=== PATIENT | female | born 1955 | race Caucasian/White ===

== ENCOUNTER → 2016-11-14 | Outpatient (CLI) | payer MEDICARE, MEDICAID ==
[~2016-11-14] MED LIST: /AUGM875TA PO; /METO25TAB PO; /QUIN20TA PO; ACET65TA OR; ACYC400T OR; ALBU83IN INH; ALBUTEROL LIQ INH; ALLE25CA OR; AMBI5TAB OR; AMLO10TAB OR; ASPI1TAB PO; ASPI81CH21 PO; ASPI81TA83 PO; AZIT500T2 PO; BREO1INH3 INH; CEFD1CAP8 PO; CELE20TA OR; CIPR500T19 OR; CITA20TA4 PO; CLOTRIMAZOLE CREAM TOP; DEXI60CA PO; DOXY100C PO; DOXY20TA4 PO; DOXY50CA PO; EUCECRE2 EX; FERR325T OR; FERR325T3 PO; FLAG500T OR; FLEEENE4 PR; FURO40TA2 PO; GABA600T PO; GABAPOW41 PO; GAS-80CH OR; GLIP5TAB2 PO; GLIP5TAB8 PO; GLUC500T PO; HYDR50TA7 OR; JANUMET 50/1000 PO; LABE100T2 OR; LASI40TA PO; LASI80TA PO; LASIX PO; LEVA500T OR; LEVA500T PO; LEVA750T PO; LISI-542 PO; LISI10TA4 PO; LISI5TAB PO; LYRI75CA PO; MAGN500T2 OR; METF500T PO; METO25TAB PO; MILKSUS OR; NEUR100C OR; NICO21DI4 TD; NICO21PAT TD; OXYC10TA97 OR; OXYC1TAB16 PO; OXYC1TAB23 PO; OXYC20TA2 PO; OXYCONTIN PO; PERC5TAB8 PO; PLAV75TA PO; PLAV75TA2 PO; POTA75TA OR; PRED10TA PO; PRED10TA2 PO; PRED20TA PO; PREV30TA PO; SIMV10TA2 PO; SPIR1CAP INH; SPIR50TA2 PO; SYMB16INH INH; SYMB80AE IN; VANC25CA OR; [UNRECOGNIZED DRUG - OTHER]; lotrimin TOP
[2016-11-14 16:53] LABS: BASO # 0.1 K/mm3 (0.0-0.2); BASO % 0.7 % (0.0-1.0); EOS # 0.2 K/mm3 (0.0-0.50); EOS % 2.6 % (0.0-3.0); LARGE UNSTAINED CELL # 0.4 K/mm3 (0.0-0.4); LYMPH # 2.5 K/mm3 (1.5-4.5); LYMPH % 29.6 % (24.0-44.0); MEAN CORPUSCULAR HEMOGLOBIN 23.3 pg (27.0-33.0); MEAN CORPUSCULAR HGB CONC 28.1 g/dl (32.0-36.5); MONO # 0.5 K/mm3 (0.0-0.8); MONO % 5.5 % (0.0-5.0); NEUTROPHILS # 4.9 K/mm3 (1.8-7.7); NEUTROPHILS % 57.6 % (36.0-66.0); PLATELET COUNT, AUTOMATED 362 k/mm3 (150-450); RED CELL DISTRIBUTION WIDTH 16.8 % (11.5-14.5); WHITE BLOOD COUNT 8.6 K/mm3 (4.0-10.0)
[2016-11-14 16:54] LABS: ADD MORPHOLOGY? YES
[2016-11-14 17:24] LABS: ANISOCYTOSIS 1+; HYPOCHROMASIA 3+
[2016-11-14 17:25] LABS: MICROCYTOSIS 1+; POLYCHROMASIA 1+
[2016-11-14 17:48] LABS: ALBUMIN 3.4 GM/DL (3.2-5.2); ALBUMIN/GLOBULIN RATIO 0.89 (1.00-1.93); ALKALINE PHOSPHATASE 81 U/L (45-117); ALT/SGPT 17 U/L (12-78); ANION GAP 10 MEQ/L (8-16); AST/SGOT 13 U/L (15-37); BILIRUBIN,TOTAL 0.3 MG/DL (0.2-1.0); BLOOD UREA NITROGEN 10 MG/DL (7-18); CALCIUM LEVEL 9.2 MG/DL (8.8-10.2); CARBON DIOXIDE LEVEL 30 MEQ/L (21-32); CHLORIDE LEVEL 101 MEQ/L (98-107); CREATININE FOR GFR 0.68 MG/DL (0.55-1.02); FERRITIN 8 NG/ML (8-252); GLOMERULAR FILTRATION RATE > 60.0 (>45); GLUCOSE, FASTING 111 MG/DL (80-110); PERCENT SATURATION 4.6 % (13.2-37.4); POTASSIUM SERUM 4.9 MEQ/L (3.5-5.1); SODIUM LEVEL 141 MEQ/L (136-145); TOTAL IRON BINDING CAPACITY 433 UG/DL (250-450); TOTAL PROTEIN 7.2 GM/DL (6.4-8.2)
== END ==
LOC: M WUC 13:56
PROVIDERS: ATTEND Family Medicine
DX: E11.9 Type 2 diabetes mellitus without complications (principal); D64.9 Anemia, unspecified

== ENCOUNTER → 2016-11-18 | Outpatient (CLI) | payer MEDICARE, MEDICAID ==
[~2016-11-18] MED LIST changes: +GASTROGRAFIN SOLUTION 30ML (Q9963) As Ordered ONE; +ISOVUE-370 76% 100ML VIAL (Q9967) As Ordered ONE
--- NOTE | 2016-11-18 17:57 | REP ---
CT study of the abdomen and pelvis without and with IV contrast: With oral contrast. History: Lower abdominal pain. Comparison CT study is from May 25, 2012. CT contrast dose: 100 ml of Isovue [address] findings: Preliminary customer service and sales consultant radiograph demonstrates a normal bowel gas pattern. There is no evidence of pleural effusion or upper abdominal ascites. The lung bases show mild linear discoid atelectasis in the left lower lobe. The liver edge is somewhat micronodular in the left lobe is slightly prominent. No overall hepatomegaly. No splenomegaly. No focal liver or spleen lesion is seen. No venous collaterals are observed in the abdomen. No adrenal lesion is seen on either side. The gallbladder is unremarkable. The pancreas shows no abnormality. There is a 2.8 cm simple cyst in the posterior cortex of the left mid kidney. This was present in 2011 when it measured 2.6 cm by my exam. No other renal cyst or mass is observed. No calculus is seen. No retroperitoneal mass or adenopathy is seen. Vascular calcification is seen in a normal caliber aorta. No abdominal wall defect is seen. Small and large intestinal bowel loops are remarkable only for some left colonic diverticulosis without CT evidence of diverticulitis. Impression: 1. Plate-like atelectasis versus fibrosis left lower lobe. 2. Left colonic diverticulosis. 3. 2.8 cm simple cyst posterior cortex left mid kidney. 4. Slightly irregular liver edge, question early cirrhosis. No focal hepatic lesion. 5. Vascular calcification. Signed by Marcio Robles MD 11/19/2016 08:01 A
== END ==
LOC: M RAD 14:05
PROVIDERS: ATTEND Family Medicine
DX: J98.11 Atelectasis (principal); K57.30 Diverticulosis of large intestine without perforation or abscess without bleeding; N28.1 Cyst of kidney, acquired; K76.9 Liver disease, unspecified
CPT/HCPCS: 74178; Q9963; Q9967

== ENCOUNTER 2017-02-22 22:06 | Inpatient (IN) | payer MEDICARE, MEDICAID ==
[~2017-02-22] VITALS: Ht 152.4 cm; Wt 91.3 kg
[~2017-02-22 22:06] MED LIST changes: -GASTROGRAFIN SOLUTION 30ML (Q9963) As Ordered ONE; -ISOVUE-370 76% 100ML VIAL (Q9967) As Ordered ONE; -PLAV75TA PO; +PLAV75TA38 PO
[2017-02-22] MEDS ORDERED: ROBISYP7 PO (22:18)
[2017-02-22] MEDS ORDERED: DOXY-278 PO (22:24)
[2017-02-22] MEDS ORDERED: methylPREDNISolone INJ 125 MG/2 ML VIAL (J2930) IV ONE (22:45)
[2017-02-22 22:53] LABS: VENOUS O2 SATURATION 67.4 % (60.0-80.0); VENOUS PARTIAL PRESSURE CO2 69.5 mmHg (38.0-50.0); VENOUS PARTIAL PRESSURE O2 37.2 mmHg (30.0-50.0); VENOUS STANDARD HCO3 28.4 MEQ/L; VENOUS TOTAL CO2 35.1 MEQ/L (24.0-28.0)
[2017-02-22 23:03] LABS: BASO % 0.4 % (0.0-1.0); EOS # 0.1 K/mm3 (0.0-0.50); EOS % 1.2 % (0.0-3.0); LARGE UNSTAINED CELL # 0.3 K/mm3 (0.0-0.4); LARGE UNSTAINED CELL % 2.3 % (0.0-4.0); LYMPH # 2.4 K/mm3 (1.5-4.5); LYMPH % 20.4 % (24.0-44.0); MEAN CORPUSCULAR HEMOGLOBIN 20.5 pg (27.0-33.0); MEAN CORPUSCULAR VOLUME 75.8 fl (80.0-96.0); MONO # 0.7 K/mm3 (0.0-0.8); MONO % 6.1 % (0.0-5.0); NEUTROPHILS # 7.4 K/mm3 (1.8-7.7); NEUTROPHILS % 69.6 % (36.0-66.0); PLATELET COUNT, AUTOMATED 323 k/mm3 (150-450); RED CELL DISTRIBUTION WIDTH 19.9 % (11.5-14.5); WHITE BLOOD COUNT 10.7 K/mm3 (4.0-10.0)
[2017-02-22 23:05] LABS: ADD MORPHOLOGY? YES
[2017-02-22 23:14] LABS: ANION GAP 9 MEQ/L (8-16); BLOOD UREA NITROGEN 8 MG/DL (7-18); CALCIUM LEVEL 8.9 MG/DL (8.8-10.2); CARBON DIOXIDE LEVEL 32 MEQ/L (21-32); CHLORIDE LEVEL 100 MEQ/L (98-107); CREATININE FOR GFR 0.62 MG/DL (0.55-1.02); GLOMERULAR FILTRATION RATE > 60.0 (>45); GLUCOSE, FASTING 98 MG/DL (80-110); POTASSIUM SERUM 4.5 MEQ/L (3.5-5.1); SODIUM LEVEL 141 MEQ/L (136-145)
[2017-02-22] MEDS ORDERED: CEFEPIME HCL 1 GM in D5W MINI-BAG PLUS 50 ML IV ONE (23:30)
[2017-02-22 23:53] LABS: ABG BASE EXCESS 6.5 (-2.0-2.0); ABG PARTIAL PRESSURE CO2 58.9 mmHg (35.0-45.0); ABG PARTIAL PRESSURE O2 69.2 mmHg (75.0-100.0); ABG STANDARD HCO3 30.3 MEQ/L (22.0-26.0); ABG TOTAL CO2 34.8 MEQ/L (23.0-31.0); ABG pH (ARTERIAL) 7.366 UNITS (7.350-7.450)
[2017-02-22] MEDS: IPRATROPIUM 0.5MG/ALBUTEROL 2.5MG INH SOL UD 3ML (DUONEB)(J7620) NEB PRN (23:53)
[2017-02-23] LABS: ANISOCYTOSIS 2+; HYPOCHROMASIA 1+; POLYCHROMASIA 1+
[2017-02-23 00:01] LABS: STOMATOCYTES 1+
[2017-02-23] MEDS: IPRATROPIUM 0.5MG/ALBUTEROL 2.5MG INH SOL UD 3ML (DUONEB)(J7620) NEB PRN ×2 (00:01→00:07)
[2017-02-23] MEDS ORDERED: IPRATROPIUM 0.5MG/ALBUTEROL 2.5MG INH SOL UD 3ML (DUONEB)(J7620) NEB PRN (00:45)
[2017-02-23] MEDS ORDERED: ACETAMINOPHEN TAB 650MG DOSE (2X325MG) PO PRN (00:45)
[2017-02-23] MEDS ORDERED: DEXTROSE 50% 50 ML SYRINGE IV PRN (00:45)
[2017-02-23] MEDS ORDERED: GLUCAGON FOR INJ 1 MG VIAL (J1610) SC PRN (00:45)
[2017-02-23] MEDS ORDERED: GLUCOSE 4 GM CHEW TABLET PO PRN (00:45)
[2017-02-23] MEDS ORDERED: NS 1,000 ML IV SCH ×2 (00:45→01:17)
[2017-02-23] MEDS ORDERED: NICOTINE 21MG/24HR 1 EA TRANSDERMAL TD PRN (01:00)
[2017-02-23 01:30] VITALS: O2SAT 91
[2017-02-23] MEDS ORDERED: PERCOCET 5MG/325MG TAB PO PRN (01:30)
[2017-02-23] MEDS ORDERED: METO12TA PO (01:33)
[2017-02-23] MEDS ORDERED: OXYC1TAB23 PO (01:33)
[2017-02-23] MEDS ORDERED: LOSA25TA8 PO (01:38)
[2017-02-23] MEDS ORDERED: MIRT1TAB PO (01:38)
[2017-02-23] MEDS ORDERED: BENA25CA4 PO (01:38)
[2017-02-23 02:00] VITALS: BP 140/62
[2017-02-23] MEDS: IPRATROPIUM 0.5MG/ALBUTEROL 2.5MG INH SOL UD 3ML (DUONEB)(J7620) NEB SCH ×4 (02:00→20:00)
[2017-02-23] MEDS: diphenhydrAMINE 25 MG CAP PO SCH ×2 (02:01→21:21)
[2017-02-23] MEDS: SIMVASTATIN 10 MG TAB PO SCH ×2 (02:01→21:20)
[2017-02-23] MEDS: guaiFENesin ER 600 MG TAB PO SCH ×3 (02:01→21:20)
[2017-02-23] MEDS: GABAPENTIN 300 MG CAP PO SCH ×4 (02:02→21:21)
[2017-02-23] MEDS: HEPARIN SOD (PORCINE) 5000 UNITS/ML VIAL SC SCH ×4 (02:02→21:19)
[2017-02-23] MEDS: METOPROLOL TART 25 MG TABLET PO SCH ×3 (02:02→21:22)
[2017-02-23] MEDS: SENOKOT S TAB PO SCH ×3 (02:03→21:20)
[2017-02-23] MEDS: MIRTAZAPINE 7.5MG PER 1/2 TABLET PO SCH ×2 (02:08→21:20)
--- NOTE | 2017-02-23 03:26 | HPE ---
DATE OF ADMISSION: 02/23/2017 PRIMARY CARE PROVIDER: Chavo Oneill MD. BUSINESS OPERATIONS MANAGER: Jerome Cordon MD. WELLNESS CONSULTANT: Kelvin Callahan MD. CHIEF COMPLAINT: Shortness of breath, coughing and fevers. HISTORY OF PRESENT ILLNESS: This is a 61-year-old female patient with underlying medical history of chronic obstructive pulmonary disease (COPD), oxygen dependent on 3 liters at home, with chronic hypercarbia, dyslipidemia, questionable obstructive sleep apnea, diabetes non-insulin dependent, obesity, active smoker, poor compliance, congestive heart failure, anemia, pulmonary nodule, depression, chronic lower back pain, diabetic neuropathy, high blood pressure. Patient, for the past week or so, has been having progressively worsening shortness of breath, coughing productive of thick yellow sputum and also chills. Two weeks ago, patient ran out of her medication, nebulizers and inhalers and her granddaughter has also been sick, 3 years old, with cough, upper respiratory tract infection for the past 2-3 weeks. Denies any chest pain, pressure or discomfort. Denies any palpitations. Does report dyspnea with generalized weakness and fatigue. ALLERGIES: To BUPROPION, ERYTHROMYCIN, LATEX, PENICILLIN. PAST MEDICAL HISTORY: 1. Questionable obstructive sleep apnea. 2. Dyslipidemia. 3. Ltl-ljsnprs-[id number] type 2 diabetes. 4. Obesity. 5. Hypertension. 6. Congestive heart failure (CHF). 7. COPD, oxygen dependent. 8. Chronic hypoxia. 9. Anemia. 10. Pulmonary nodules. 11. Depression. 12. Chronic lower back pain. 13. Diabetic neuropathy. PAST SURGICAL HISTORY: 1. Cataracts. 2. Skin graft 1976. 3. Partial hysterectomy. SOCIAL HISTORY: Used to smoke three packs, currently at 1-1/2 packs to one pack per day. Started smoking since 20 years old. Last drink alcoholic beverage was 2 years ago. No illicit drug use. FAMILY HISTORY: Mother has ovarian cancer with metastases (METS) to the brain. Father with coronary arterial disease. REVIEW OF SYSTEMS: 10-point review of systems negative except for those mentioned in the history of present illness (HPI). HOME MEDICATIONS: - albuterol every 4 hours as needed - citalopram 20 mg by mouth daily - Plavix 75 mg by mouth daily - Dexilant 60 mg by mouth daily - doxycycline 100 mg by mouth daily - Breo inhaler 200/25 mcg inhalation daily - Lasix 40 mg by mouth twice a day as needed - gabapentin by mouth three times a day - glipizide 5 mg by mouth daily - lisinopril 10 mg by mouth daily - metformin 500 mg by mouth twice a day - metoprolol 25 mg by mouth twice a day - oxycodone/acetaminophen 10/325 mg one tablet by mouth twice a day as needed - Robitussin as needed - Zocor 10 mg by mouth daily - Spiriva inhalation 18 mcg daily PHYSICAL EXAMINATION: VITAL SIGNS: Temperature 100.7, pulse 116, respirations 20, blood pressure 169/69, pulse oximetry 88-90% on 3 liters nasal cannula. GENERAL: Patient alert and oriented times three in no acute distress. HEENT: Normocephalic, atraumatic. PULMONARY: Bilateral rhonchi. Bilateral expiratory wheeze. CARDIAC: Regular rate and rhythm. Mild tachycardia. S1, S2. ABDOMEN: Soft, nontender, nondistended. Obese. Positive bowel sounds. EXTREMITIES: No edema bilateral lower extremities. EKG sinus tachycardia at 105, no ST segment changes. LABORATORY: WBC 10.7, hemoglobin and hematocrit 8.8/32.4, platelets 323. Chemistry: Sodium 141, potassium 4.5, chloride 100, bicarbonate 32, BUN 8, creatinine 0.62. Cardiac enzymes negative times one. Chest x-ray mild hilar infiltrates. ASSESSMENT AND PLAN: This is a 61-year-old female patient with underlying medical history of chronic obstructive pulmonary disease (COPD), chronic hypoxic respiratory failure on 3 liters oxygen at home, congestive heart failure, dyslipidemia, ope-bofesfd-lyjhqpxnj diabetes, hypertension, anemia, pulmonary nodule, depression, chronic back pain, diabetic neuropathy, questionable sleep apnea, chronic smoker, poor compliance, admitted with acute COPD exacerbation possibly secondary to community-acquired bacterial pneumonia. 1. Acute COPD exacerbation, chronic hypoxic respiratory failure. Solu-Medrol intravenously (IV), taper as tolerated. Nebulizer treatments. Advair inhaler. Spiriva. Oxygen supplementation. Azithromycin, cefepime. Followup cultures. Respiratory panel. Positive sick contact. Sputum culture, blood cultures. 2. Smoking. Nicotine patch offered. Patient currently refused. Ordered as needed. Smoking cessation counseling provided. 3. Sepsis. Likely secondary to pneumonia. Patient tachycardic and febrile. Followup blood cultures, sputum cultures and respiratory panel, C-reactive protein, lactic acid. IV fluids for 500 mL overnight. Will avoid fluid overload. 4. History of congestive heart failure (CHF). Likely diastolic dysfunction. Patient currently is euvolemic. No edema. Continue to monitor. Continue home medication. Hold Lasix for today. Consider restarting Lasix tomorrow. 5. Hypertension. Holding Lasix for today. Will consider restarting tomorrow. Continue lisinopril, metoprolol. 6. Dyslipidemia. Continue statin. 7. Depression. Continue home medication. 8. Chronic back pain. Continue home medication. 9. Diabetic neuropathy. Continue home medication. 10. Deep venous thrombosis (DVT) prophylaxis. Heparin subcutaneously. 11. Diabetes. Insulin as per protocol. Holding oral medications. DISPOSITION: Pending clinical improvement and cultures.
[2017-02-23] MEDS: AZITHROMYCIN INJ 500 MG, VIAL MATE ADAPTER 1 EACH in D5W 250 ML IV SCH (04:13)
[2017-02-23 06:00] VITALS: BP 124/53
[2017-02-23 06:39] LABS: MEAN CORPUSCULAR HEMOGLOBIN 20.5 pg (27.0-33.0); MEAN CORPUSCULAR HGB CONC 27.2 g/dl (32.0-36.5); MEAN CORPUSCULAR VOLUME 75.5 fl (80.0-96.0); RED CELL DISTRIBUTION WIDTH 19.8 % (11.5-14.5); WHITE BLOOD COUNT 8.3 K/mm3 (4.0-10.0)
[2017-02-23 07:00] LABS: ANION GAP 5 MEQ/L (8-16); BLOOD UREA NITROGEN 13 MG/DL (7-18); CARBON DIOXIDE LEVEL 33 MEQ/L (21-32); CHLORIDE LEVEL 97 MEQ/L (98-107); CREATININE FOR GFR 0.65 MG/DL (0.55-1.02); GLOMERULAR FILTRATION RATE > 60.0 (>45); GLUCOSE, FASTING 248 MG/DL (80-110); MAGNESIUM LEVEL 1.4 MG/DL (1.8-2.4); SODIUM LEVEL 135 MEQ/L (136-145)
[2017-02-23] MEDS: TIOTROPIUM INHALER/CAPSULE (SPIRIVA) INH SCH (07:16)
[2017-02-23] MEDS: ADVAIR DISKUS 500/50 INH PWD INH SCH ×2 (07:16→20:52)
[2017-02-23] MEDS: methylPREDNISolone INJ 125 MG/2 ML VIAL (J2930) IV SCH ×2 (07:47→18:04)
[2017-02-23] MEDS: HumaLOG INSULIN (NovoLOG) PER UNIT SC SCH ×4 (07:48→21:00)
[2017-02-23] MEDS: PANTOPRAZOLE 40MG TAB (PROTONIX) PO SCH (07:48)
--- NOTE | 2017-02-23 08:31 | REP ---
Chest x-ray: Two views. History: Dyspnea and cough. Comparison study February 04, 2016. Findings: The lungs are slightly hyperinflated with an increase in the AP diameter of the chest but clear. Pleural angles are sharp. Heart is enlarged. Cardiothoracic ratio is 15.5 cm over 30.1 cm. Pulmonary vasculature is slightly cephalized but unchanged. There is no evidence of pleural effusion or pulmonary edema. Impression: Mild cardiomegaly and cephalization. Mild hyperinflation. Signed by Marcio Robles MD 02/23/2017 12:06 P
[2017-02-23] MEDS: CEFEPIME HCL 2 GM in D5W MINI-BAG PLUS 50 ML IV SCH (13:51)
[2017-02-23] MEDS: CLOPIDOGREL 75 MG TAB PO SCH (13:52)
[2017-02-23] MEDS: CitaloPRAM (CeleXA) 20 MG TAB PO SCH (13:53)
[2017-02-23] MEDS: LOSARTAN 25 MG TAB PO SCH (13:53)
[2017-02-23 18:00] VITALS: BP 120/58
[2017-02-23 21:00] VITALS: O2SAT 93
[2017-02-23 22:00] VITALS: BP 142/63
[2017-02-24] MEDS: CEFEPIME HCL 2 GM in D5W MINI-BAG PLUS 50 ML IV SCH ×3 (00:10→23:52)
[2017-02-24] MEDS: IPRATROPIUM 0.5MG/ALBUTEROL 2.5MG INH SOL UD 3ML (DUONEB)(J7620) NEB SCH ×4 (01:44→19:59)
--- NOTE | 2017-02-24 04:51 | ECGEPIP ---
Stationary ECG Study [facility] - ED Test Date: 2017-02-22 Pat Name: CANDIDO BAEZ Department: Room: [place] [address] Gender: F Supervisor Yard: DíazB: 1955 Requested By: MICKEY Joseph Order Number: [id number] Reading MD: Yong Beauchamp Measurements Intervals [place] Rate: 105 P: 77 WA: 165 QRS: 39 QRSD: 101 T: 60 QT: 330 QTc: 437 Interpretive Statements SINUS TACHYCARDIA [employer] RBBB LAE Electronically Signed On 02-24-2017 4:50:50 EDT by Yong Beauchamp
[2017-02-24] MEDS: AZITHROMYCIN INJ 500 MG, VIAL MATE ADAPTER 1 EACH in D5W 250 ML IV SCH (05:14)
[2017-02-24] MEDS: HEPARIN SOD (PORCINE) 5000 UNITS/ML VIAL SC SCH ×3 (05:15→22:44)
[2017-02-24 06:00] VITALS: BP 121/60
[2017-02-24 06:52] LABS: MEAN CORPUSCULAR HEMOGLOBIN 21.9 pg (27.0-33.0); MEAN CORPUSCULAR HGB CONC 28.9 g/dl (32.0-36.5); MEAN CORPUSCULAR VOLUME 75.6 fl (80.0-96.0); RED CELL DISTRIBUTION WIDTH 19.8 % (11.5-14.5); WHITE BLOOD COUNT 4.5 K/mm3 (4.0-10.0)
[2017-02-24 07:04] LABS: ANION GAP 3 MEQ/L (8-16); BLOOD UREA NITROGEN 24 MG/DL (7-18); CALCIUM LEVEL 9.3 MG/DL (8.8-10.2); CARBON DIOXIDE LEVEL 32 MEQ/L (21-32); CHLORIDE LEVEL 99 MEQ/L (98-107); CREATININE FOR GFR 0.67 MG/DL (0.55-1.02); GLOMERULAR FILTRATION RATE > 60.0 (>45); GLUCOSE, FASTING 357 MG/DL (80-110); MAGNESIUM LEVEL 1.5 MG/DL (1.8-2.4); POTASSIUM SERUM 4.9 MEQ/L (3.5-5.1); SODIUM LEVEL 134 MEQ/L (136-145)
[2017-02-24] MEDS: TIOTROPIUM INHALER/CAPSULE (SPIRIVA) INH SCH (07:34)
[2017-02-24] MEDS: ADVAIR DISKUS 500/50 INH PWD INH SCH ×2 (07:34→20:05)
[2017-02-24 08:30] VITALS: BP 135/64
[2017-02-24] MEDS: HumaLOG INSULIN (NovoLOG) PER UNIT SC SCH ×4 (08:30→20:36)
[2017-02-24] MEDS: methylPREDNISolone INJ 125 MG/2 ML VIAL (J2930) IV SCH ×4 (08:30→23:52)
[2017-02-24] MEDS: GABAPENTIN 300 MG CAP PO SCH ×3 (08:35→20:30)
[2017-02-24] MEDS: METOPROLOL TART 25 MG TABLET PO SCH ×2 (08:35→20:32)
[2017-02-24] MEDS: PANTOPRAZOLE 40MG TAB (PROTONIX) PO SCH (08:35)
[2017-02-24] MEDS: guaiFENesin ER 600 MG TAB PO SCH ×2 (08:35→20:29)
[2017-02-24] MEDS: SENOKOT S TAB PO SCH ×2 (08:35→20:30)
[2017-02-24] MEDS ORDERED: glipiZIDE (GLUCOTROL) 5 MG TAB PO SCH (09:00)
[2017-02-24] MEDS ORDERED: guaiFENesin DM LIQ 10ML UD PO PRN (10:45)
--- NOTE | 2017-02-24 10:50 | IPN ---
DATE OF SERVICE: 02/24/2017 Patient seen and examined at the bedside. Chart has been reviewed. This morning, patient still complains of shortness of breath but improved from yesterday, nonproductive cough, weakness. No fever or chills overnight. Temperature 97.8, pulse 64, respiratory rate 18, blood pressure 135/64, 98% on 2.5 liters nasal cannula. Generally, patient is awake, alert, oriented times three, no respiratory distress or using respiratory accessory muscles. No cyanosis. Able to complete full sentences. Lungs are diminished, bilateral, occasional wheezing. Heart: S1, S2, sinus rhythm. Abdomen is soft, nontender, nondistended. Extremities: No pitting edema. LABORATORY DATA: White count 4.5, hemoglobin 8.6, hematocrit 29, platelet count 283. Sodium 134, potassium 4.9, chloride 99, bicarbonate 32, BUN 24, creatinine 0.67, glucose of 357. RSV, 02/22/2017, positive. ASSESSMENT AND PLAN: This is a 61-year-old female with history of obstructive sleep apnea (EDWINA), dyslipidemia, type 2 diabetes, obesity, hypertension, congestive heart failure (CHF), chronic obstructive pulmonary disease (COPD), chronic hypoxia, anemia, pulmonary nodules, depression, chronic low back pain, diabetic neuropathy, presents with worsening shortness of breath , coug, fever for 2 weeks due to running out of medication. IMPRESSION: 1. Acute COPD exacerbation with chronic hypoxic respiratory failure, on intravenous (IV) Solu-Medrol, nebulizer treatments, Advair, azithromycin and cefepime. Await sputum culture and blood cultures. 2. Active smoking. Nicotine patch, smoking counseling provided. 3. Sepsis secondary to pneumonia. Tachycardic and febrile. Lactic acid has now improved. IV fluids have been given. 4. CHF, diastolic dysfunction. Monitor intake and output. Lasix has been held. 5. Hypertension. Lasix held. Continue lisinopril and metoprolol. 6. Dyslipidemia. On statin. 7. Depression, stable. 8. Chronic back pain, chronic. 9. Diabetic neuropathy, chronic. 10. Deep venous thrombosis (DVT) prophylaxis. Subcutaneous heparin. 11. Type 2 diabetes. Consistent carbohydrate diet. Insulin per protocol. Slightly increased to due to steroid induced hyperglycemia. Check A1c level and rapid tapering of steroids.
[2017-02-24 14:00] VITALS: BP 128/58
[2017-02-24] MEDS: metFORMIN (GLUCOPHAGE) 500 MG TAB PO SCH ×2 (15:24→20:30)
[2017-02-24] MEDS: LEVEMIR (INSULIN DETEMIR) 1 UNITS/0.01ML SC SCH ×2 (15:25→20:35)
[2017-02-24] MEDS: LOSARTAN 25 MG TAB PO SCH (17:52)
[2017-02-24] MEDS: CLOPIDOGREL 75 MG TAB PO SCH (17:52)
[2017-02-24] MEDS: CitaloPRAM (CeleXA) 20 MG TAB PO SCH (17:52)
[2017-02-24 20:00] VITALS: O2SAT 97
[2017-02-24] MEDS: SIMVASTATIN 10 MG TAB PO SCH (20:29)
[2017-02-24] MEDS: diphenhydrAMINE 25 MG CAP PO SCH (20:30)
[2017-02-24 22:00] VITALS: BP 141/61
[2017-02-24] MEDS: MIRTAZAPINE 7.5MG PER 1/2 TABLET PO SCH (22:51)
[2017-02-25 01:47] VITALS: O2SAT 98
[2017-02-25] MEDS: IPRATROPIUM 0.5MG/ALBUTEROL 2.5MG INH SOL UD 3ML (DUONEB)(J7620) NEB SCH ×4 (01:51→19:54)
[2017-02-25] MEDS: MIRTAZAPINE 7.5MG PER 1/2 TABLET PO SCH ×2 (01:53→21:55)
[2017-02-25] MEDS: AZITHROMYCIN INJ 500 MG, VIAL MATE ADAPTER 1 EACH in D5W 250 ML IV SCH (03:31)
[2017-02-25] MEDS: HEPARIN SOD (PORCINE) 5000 UNITS/ML VIAL SC SCH ×3 (05:54→21:54)
[2017-02-25 06:00] VITALS: BP 137/65
[2017-02-25 07:23] LABS: MEAN CORPUSCULAR HEMOGLOBIN 19.6 pg (27.0-33.0); MEAN CORPUSCULAR HGB CONC 26.4 g/dl (32.0-36.5); MEAN CORPUSCULAR VOLUME 74.2 fl (80.0-96.0); PLATELET COUNT, AUTOMATED 339 k/mm3 (150-450); WHITE BLOOD COUNT 6.6 K/mm3 (4.0-10.0)
[2017-02-25] MEDS: TIOTROPIUM INHALER/CAPSULE (SPIRIVA) INH SCH (07:30)
[2017-02-25] MEDS: ADVAIR DISKUS 500/50 INH PWD INH SCH ×2 (07:30→19:53)
[2017-02-25 07:39] LABS: ANION GAP 2 MEQ/L (8-16); BLOOD UREA NITROGEN 27 MG/DL (7-18); CALCIUM LEVEL 9.8 MG/DL (8.8-10.2); CARBON DIOXIDE LEVEL 32 MEQ/L (21-32); CHLORIDE LEVEL 101 MEQ/L (98-107); CREATININE FOR GFR 0.73 MG/DL (0.55-1.02); GLOMERULAR FILTRATION RATE > 60.0 (>45); GLUCOSE, FASTING 274 MG/DL (80-110); MAGNESIUM LEVEL 1.7 MG/DL (1.8-2.4); SODIUM LEVEL 135 MEQ/L (136-145)
[2017-02-25] MEDS: methylPREDNISolone INJ 125 MG/2 ML VIAL (J2930) IV SCH (08:00)
[2017-02-25] MEDS: HumaLOG INSULIN (NovoLOG) PER UNIT SC SCH ×4 (08:55→21:00)
[2017-02-25] MEDS: SENOKOT S TAB PO SCH ×3 (08:55→21:55)
[2017-02-25] MEDS: predniSONE 20 MG TAB PO SCH ×3 (08:56→21:55)
[2017-02-25] MEDS: PANTOPRAZOLE 40MG TAB (PROTONIX) PO SCH (08:56)
[2017-02-25] MEDS: GABAPENTIN 300 MG CAP PO SCH ×3 (08:57→21:54)
[2017-02-25] MEDS: METOPROLOL TART 25 MG TABLET PO SCH ×2 (08:57→22:04)
[2017-02-25] MEDS: guaiFENesin ER 600 MG TAB PO SCH ×2 (08:58→21:54)
[2017-02-25] MEDS: metFORMIN (GLUCOPHAGE) 500 MG TAB PO SCH ×2 (09:00→21:55)
[2017-02-25 09:18] LABS: PERCENT SATURATION 2.9 % (13.2-37.4); REASON FOR REVIEW COMPREHENSIVE REVIEW; RETIC HEMOGLOBIN CONTENT CHr 22.6 PG (24-36); RETICULOCYTE ABSOLUTE ADVIA212 81 x10(9)/L (17-77); TOTAL IRON BINDING CAPACITY 339 UG/DL (250-450)
[2017-02-25] MEDS: glipiZIDE 10 MG TAB PO SCH ×2 (09:41→17:02)
[2017-02-25] MEDS ORDERED: MAG SULF 1GM/100ML (MAG RUN) 1 GM in APPROPRIATE DILUENT 1 EA IV ONE (10:00)
[2017-02-25] MEDS ORDERED: FUROSEMIDE 100 MG/10 ML VIAL (J1940) IV ONE (11:00)
--- NOTE | 2017-02-25 11:05 | IPN ---
DATE: 02/25/2017 The patient is seen and examined at the bedside. The chart has been reviewed. She denies any bright red blood per rectum, melena, hematemesis, black tarry stools, shortness of breath, is back to baseline. No chest pain, pressure, tightness, dizziness or lightheadedness. No fatigue or weakness. Temperature 97.1, pulse 65 to 68 sinus rhythm, respiratory rate 18, blood pressure 135/67, 95% 2.5 liters nasal cannula. Generally, the patient is slightly pale. No icterus. No jaundice. Speaks in full sentences. No use of respiratory accessory muscles. No jugular venous distention. Lungs: Diminished with coarse rhonchi, faint expiratory wheezing. Heart: S1, S2 sinus rhythm. Abdomen is obese, soft, nontender, nondistended. Extremities: No cyanosis or clubbing or pitting edema. Laboratory data, microbiology and imaging studies have been reviewed. ASSESSMENT/PLAN: 61-year-old female with a history of COPD, oxygen dependent 3 liters at home, chronic hypercarbia, dyslipidemia, sleep apnea, type 2 diabetes, obesity, active smoker with poor compliance, congestive heart failure, anemia, pulmonary nodule, depression, chronic low back pain, diabetic neuropathy, hypertension who presented to the emergency room with worsening shortness of breath, thick yellow sputum with chills. The patient has had a sick contact with her granddaughter who is 3 years old with upper respiratory infection and the patient has run out of her medication, nebulizers and inhalers. She now presents with acute COPD exacerbation secondary to respiratory syncytial virus. Chest x-ray shows mild cephalization and cardiomegaly with mild hyperinflation. IMPRESSION: 1. Acute COPD exacerbation with chronic hypoxic respiratory failure on 3 liters of nasal cannula oxygen, currently on IV Solu-Medrol. Will change to oral prednisone 60 three times a day, Lasix IV times one. Repeat chest x-ray. Continue with nebulizer treatments, supplemental oxygen. 2. Anemia: Check hemoccult stool, hemoglobin and hematocrit every 6 hours. Transfuse if symptomatic or persistently less than 8. 3. Steroid induced hyperglycemia: Continue on oral hypoglycemics. Discontinue subcutaneous insulin. 4. Electrolyte abnormalities with low magnesium. Supplement magnesium. 5. Obstructive sleep apnea: Outpatient sleep study. 6. Sepsis secondary to possible pneumonia. Lactic acid has improved. IV fluids have been given. 7. Congestive heart failure diastolic dysfunction: Monitor input and output, daily weights, fluid restriction. Lasix 60 IV times one. Repeat chest x-ray and check BNP. 8. History of chronic hypoxia, currently on 3 liters at baseline. 9. Hypertension is stable. Monitor creatinine on lisinopril. 10. Hyperlipidemia on chronic Zocor. 11. Depression on citalopram. 12. Type 2 diabetes uncontrolled with steroid induced hyperglycemia. Resume home medications, glipizide. MTDD
[2017-02-25 11:11] LABS: FERRITIN 15 NG/ML (8-252)
--- NOTE | 2017-02-25 11:40 | REP ---
CHEST X-RAY: TWO VIEWS. HISTORY: Shortness of breath. COMPARISON STUDY: 02/22/2017 FINDINGS: Mild cardiomegaly is again observed, unchanged. Pulmonary artery segment of the left heart border is somewhat convex suggesting dilation of pulmonary arteries/pulmonary arterial hypertension. This is unchanged. Pulmonary vasculature is not increased in the perihilar regions. There is some flattening of the hemidiaphragms on the lateral radiograph, consistent with hyperinflation and COPD. No infiltrate is seen. Interstitial markings are slightly increased in the bases bilaterally. IMPRESSION: Cardiomegaly. No acute infiltrate seen. Signed by Marcio Robles MD 02/25/2017 01:40 P
[2017-02-25 14:00] VITALS: BP 127/60
[2017-02-25] MEDS: CLOPIDOGREL 75 MG TAB PO SCH (14:15)
[2017-02-25] MEDS: LOSARTAN 25 MG TAB PO SCH (14:15)
[2017-02-25] MEDS: CitaloPRAM (CeleXA) 20 MG TAB PO SCH (14:15)
[2017-02-25] MEDS: diphenhydrAMINE 25 MG CAP PO SCH (21:53)
[2017-02-25] MEDS: SIMVASTATIN 10 MG TAB PO SCH (21:56)
[2017-02-25 22:00] VITALS: BP 147/67
[2017-02-26] MEDS: IPRATROPIUM 0.5MG/ALBUTEROL 2.5MG INH SOL UD 3ML (DUONEB)(J7620) NEB SCH ×2 (03:12→08:00)
[2017-02-26 06:00] VITALS: BP 152/72
[2017-02-26] MEDS: HEPARIN SOD (PORCINE) 5000 UNITS/ML VIAL SC SCH (06:14)
[2017-02-26 07:02] LABS: MEAN CORPUSCULAR HEMOGLOBIN 20.6 pg (27.0-33.0); MEAN CORPUSCULAR HGB CONC 27.7 g/dl (32.0-36.5); MEAN CORPUSCULAR VOLUME 74.6 fl (80.0-96.0); RED CELL DISTRIBUTION WIDTH 19.7 % (11.5-14.5); WHITE BLOOD COUNT 5.5 K/mm3 (4.0-10.0)
[2017-02-26 07:07] LABS: ANION GAP 6 MEQ/L (8-16); BLOOD UREA NITROGEN 24 MG/DL (7-18); CALCIUM LEVEL 9.7 MG/DL (8.8-10.2); CARBON DIOXIDE LEVEL 30 MEQ/L (21-32); CHLORIDE LEVEL 103 MEQ/L (98-107); CREATININE FOR GFR 0.64 MG/DL (0.55-1.02); GLOMERULAR FILTRATION RATE > 60.0 (>45); GLUCOSE, FASTING 196 MG/DL (80-110); MAGNESIUM LEVEL 1.7 MG/DL (1.8-2.4); PERCENT SATURATION 2.7 % (13.2-37.4); POTASSIUM SERUM 4.8 MEQ/L (3.5-5.1); SODIUM LEVEL 139 MEQ/L (136-145); TOTAL IRON BINDING CAPACITY 375 UG/DL (250-450)
[2017-02-26] MEDS ORDERED: GUAI60TA PO (07:38)
[2017-02-26] MEDS ORDERED: GLIP10TA PO (07:38)
[2017-02-26] MEDS ORDERED: IPRASOL4 NEB (07:38)
[2017-02-26] MEDS ORDERED: NICO21PAT TD (07:38)
[2017-02-26] MEDS ORDERED: DELT1TAB PO (07:38)
[2017-02-26] MEDS ORDERED: MAG SULF 1GM/100ML (MAG RUN) 1 GM in APPROPRIATE DILUENT 1 EA IV ONE (08:00)
[2017-02-26] MEDS: ADVAIR DISKUS 500/50 INH PWD INH SCH (08:30)
[2017-02-26] MEDS: TIOTROPIUM INHALER/CAPSULE (SPIRIVA) INH SCH (08:31)
[2017-02-26 08:37] VITALS: BP 152/72
[2017-02-26] MEDS: METOPROLOL TART 25 MG TABLET PO SCH (08:37)
[2017-02-26] MEDS: guaiFENesin ER 600 MG TAB PO SCH (08:37)
[2017-02-26] MEDS: GABAPENTIN 300 MG CAP PO SCH (08:37)
[2017-02-26] MEDS: HumaLOG INSULIN (NovoLOG) PER UNIT SC SCH (08:38)
[2017-02-26] MEDS: predniSONE 20 MG TAB PO SCH (08:38)
[2017-02-26] MEDS: metFORMIN (GLUCOPHAGE) 500 MG TAB PO SCH (08:38)
[2017-02-26] MEDS: PANTOPRAZOLE 40MG TAB (PROTONIX) PO SCH (08:38)
[2017-02-26] MEDS: SENOKOT S TAB PO SCH (08:39)
[2017-02-26] MEDS: glipiZIDE 10 MG TAB PO SCH (08:39)
--- NOTE | 2017-02-26 16:43 | DSES ---
DATE OF ADMISSION: 02/23/2017 DATE OF DISCHARGE: 02/26/2017 PRIMARY DISCHARGE DIAGNOSES: 1. Respiratory syncytial virus. 2. Chronic obstructive pulmonary disease (COPD) exacerbation. 3. Steroid-induced hyperglycemia. 4. Electrolyte abnormalities with low magnesium. 5. Obstructive sleep apnea. 6. Sepsis, secondary to pneumonia. 7. Congestive heart failure (CHF), diastolic dysfunction, compensated. 8. Chronic hypoxia, on 3 liters of oxygen. 9. Hypertension. 10. Hyperlipidemia. 11. Depression. 12. Type 2 diabetes with steroid-induced hyperglycemia. DISCHARGE MEDICATIONS: - Combivent 3 mL every 6 hours - prednisone taper - glipizide 10 twice a day - Mucinex 600 twice a day - nicotine patch 21 mg daily - citalopram 20 daily - Plavix 75 daily - Dexilant 60 daily - Benadryl 25 nightly - Breo Ellipta daily - gabapentin 600 three times a day - losartan 25 daily - metformin 500 twice a day - metoprolol 25 twice a day - mirtazapine 7.5 nightly - Percocet one every 12 hours as needed for pain - Robitussin 10 mL as directed - simvastatin 10 nightly - Spiriva 18 mcg inhaled daily HOSPITAL COURSE: This is a 61-year-old female with history of COPD, 3 liters home oxygen dependent, chronic hypercarbia, dyslipidemia, sleep apnea, type 2 diabetes, obesity, active smoker with poor compliance, CHF diastolic dysfunction, pulmonary nodule, depression, chronic low back pain, diabetic neuropathy, hypertension, presented with shortness of breath and sputum and chills. The patient had a sick contact. Was admitted for COPD exacerbation. The patient was started on IV Solu-Medrol, nebulizer treatments, Continued on her supplemental oxygen. Patient developed steroid-induced hyperglycemia. She was resumed to her home dose of medications, given Levemir insulin, rapid tapering of steroids with some improvement. Sputum culture could not be obtained. She had positive respiratory syncytial virus and was kept on air droplet precautions. Influenza A and B were negative. Two sets of blood cultures were negative. Chest x-ray showed no acute infiltrate. She appeared fluid overloaded, received one dose of Lasix, but shortness of breath is at baseline at 3 liters nasal cannula. She had episodes of low magnesium which was supplemented. LABORATORY DATA ON DISCHARGE: White count 5.5, hemoglobin 8.5, hematocrit 30, platelet count 345, sodium 139, potassium 4.8, chloride 103, bicarbonate 30, BUN 24, creatinine 0.64, glucose 196, magnesium 1.7. MICROBIOLOGY: RSV positive. Influenza negative. Blood cultures, two sets, no growth after 72 hours. TIME SPENT ON DISCHARGE: 30 minutes.
== END 2017-02-26 11:05 | disposition home health service (06) | DRG 871 ==
LOC: M ED 22:34 → M ED INP 02-23 00:36 → M MS5PR 02-23 01:10
PROVIDERS: ADMIT Hospitalist; ATTEND General Practice
DX: A41.9 Sepsis, unspecified organism (principal); J18.9 Pneumonia, unspecified organism; J44.1 Chronic obstructive pulmonary disease with (acute) exacerbation; J96.11 Chronic respiratory failure with hypoxia; I50.32 Chronic diastolic (congestive) heart failure; E11.40 Type 2 diabetes mellitus with diabetic neuropathy, unspecified; E66.9 Obesity, unspecified; F17.210 Nicotine dependence, cigarettes, uncomplicated; F32.9 Major depressive disorder, single episode, unspecified; E11.65 Type 2 diabetes mellitus with hyperglycemia; B97.4 Respiratory syncytial virus as the cause of diseases classified elsewhere; M54.5 Low back pain; G47.33 Obstructive sleep apnea (adult) (pediatric); I11.0 Hypertensive heart disease with heart failure; E78.5 Hyperlipidemia, unspecified; D64.9 Anemia, unspecified; Z99.81 Dependence on supplemental oxygen; Z91.14 Patient's other noncompliance with medication regimen; Z79.02 Long term (current) use of antithrombotics/antiplatelets; Z79.84 Long term (current) use of oral hypoglycemic drugs; Z79.891 Long term (current) use of opiate analgesic; Z79.51 Long term (current) use of inhaled steroids; Z79.899 Other long term (current) drug therapy; Z68.38 Body mass index [BMI] 38.0-38.9, adult

== ENCOUNTER 2017-03-12 11:48 | Inpatient (IN) | payer MEDICARE, MEDICAID ==
[~2017-03-12] VITALS: Ht 152.4 cm; Wt 87.6 kg
[2017-03-12] MEDS: LOSARTAN 25 MG TAB PO SCH (09:00)
[2017-03-12] MEDS: NICOTINE 21MG/24HR 1 EA TRANSDERMAL TD SCH (09:00)
[~2017-03-12 11:48] MED LIST changes: +BENA25CA4 PO; +DELT1TAB PO; +DOXY-278 PO; +GLIP10TA PO; +GUAI60TA PO; +IPRASOL4 NEB; +LOSA25TA8 PO; +METO12TA PO; +MIRT1TAB PO; +ROBISYP7 PO
[2017-03-12] MEDS ORDERED: FURO40TA2 PO (12:37)
[2017-03-12] MEDS ORDERED: IPRATROPIUM 0.5MG/ALBUTEROL 2.5MG INH SOL UD 3ML (DUONEB)(J7620) NEB ONE ×3 (13:15→15:15)
[2017-03-12] MEDS ORDERED: methylPREDNISolone INJ 125 MG/2 ML VIAL (J2930) IV ONE (13:15)
[2017-03-12 13:31] LABS: BASO % 0.3 % (0.0-1.0); EOS % 0.5 % (0.0-3.0); LARGE UNSTAINED CELL # 0.3 K/mm3 (0.0-0.4); LARGE UNSTAINED CELL % 3.8 % (0.0-4.0); LYMPH # 1.4 K/mm3 (1.5-4.5); MEAN CORPUSCULAR HEMOGLOBIN 22.4 pg (27.0-33.0); MEAN CORPUSCULAR HGB CONC 28.8 g/dl (32.0-36.5); MEAN CORPUSCULAR VOLUME 77.9 fl (80.0-96.0); MONO # 0.4 K/mm3 (0.0-0.8); MONO % 6.2 % (0.0-5.0); NEUTROPHILS # 4.9 K/mm3 (1.8-7.7); NEUTROPHILS % 69.2 % (36.0-66.0); PLATELET COUNT, AUTOMATED 193 k/mm3 (150-450); RED CELL DISTRIBUTION WIDTH 21.6 % (11.5-14.5); WHITE BLOOD COUNT 7.1 K/mm3 (4.0-10.0)
[2017-03-12 13:36] LABS: ADD MORPHOLOGY? YES
[2017-03-12 13:39] LABS: ALBUMIN 2.5 GM/DL (3.2-5.2); ALBUMIN/GLOBULIN RATIO 0.66 (1.00-1.93); ALKALINE PHOSPHATASE 67 U/L (45-117); ALT/SGPT 16 U/L (12-78); ANION GAP 7 MEQ/L (8-16); AST/SGOT 13 U/L (15-37); BILIRUBIN,DIRECT 0.1 MG/DL (0.0-0.2); BILIRUBIN,TOTAL 0.3 MG/DL (0.2-1.0); BLOOD UREA NITROGEN 9 MG/DL (7-18); CALCIUM LEVEL 8.4 MG/DL (8.8-10.2); CARBON DIOXIDE LEVEL 33 MEQ/L (21-32); CHLORIDE LEVEL 103 MEQ/L (98-107); CREATININE FOR GFR 0.54 MG/DL (0.55-1.02); GLOMERULAR FILTRATION RATE > 60.0 (>45); GLUCOSE, FASTING 168 MG/DL (80-110); POTASSIUM SERUM 3.7 MEQ/L (3.5-5.1); SODIUM LEVEL 143 MEQ/L (136-145); THYROXINE (T4) 8.7 UG/DL (4.5-12.0); TOTAL PROTEIN 6.3 GM/DL (6.4-8.2)
[2017-03-12 13:47] LABS: ABG BASE EXCESS 4.6 (-2.0-2.0); ABG HCO3 30.5 MEQ/L (22.0-26.0); ABG PARTIAL PRESSURE CO2 52.6 mmHg (35.0-45.0); ABG PARTIAL PRESSURE O2 73.2 mmHg (75.0-100.0); ABG STANDARD HCO3 28.6 MEQ/L (22.0-26.0); ABG TOTAL CO2 32.1 MEQ/L (23.0-31.0); ABG pH (ARTERIAL) 7.381 UNITS (7.350-7.450)
[2017-03-12 14:08] LABS: MICROCYTOSIS 2+
[2017-03-12 14:09] LABS: ANISOCYTOSIS 2+; HYPOCHROMASIA 3+
--- NOTE | 2017-03-12 14:20 | REP ---
Chest two views HISTORY: Cough Comparison: 02/25/2017 The lungs are clear. T the cardiac silhouette is upper limits of normal in size. The pulmonary vasculature is normal in appearance. The bony structure is intact. IMPRESSION: No acute disease. Signed by Jose Betancur MD 03/12/2017 02:12 P
[2017-03-12] MEDS ORDERED: ISOVUE-370 76% 100ML VIAL (Q9967) As Ordered ONE (15:19)
[2017-03-12] MEDS ORDERED: MIRT30TA3 PO (17:16)
[2017-03-12] MEDS ORDERED: BREO1INH INH (17:16)
[2017-03-12] MEDS ORDERED: IPRASOL4 INH (17:19)
[2017-03-12] MEDS ORDERED: METO25TAB PO (17:19)
[2017-03-12] MEDS ORDERED: GLIP10TA6 PO (17:19)
[2017-03-12] MEDS ORDERED: NICODIS TD (17:19)
[2017-03-12] MEDS ORDERED: GUAI1TAB PO (17:19)
[2017-03-12] MEDS ORDERED: TAB-TAB PO (17:19)
--- NOTE | 2017-03-12 17:38 | REP ---
CT ANGIO CHEST: HISTORY: Shortness of breath. CONTRAST: Isovue-370 75 mL. There are no filling defects in the main , right and left pulmonary arteries or their branches. Parenchymal density is present in the right upper lobe consistent with scarring. A 3 mm nodule is present in the right upper lobe unchanged in size compared to the previous study. This is seen on image 26. The left lung is clear. There is no pleural effusion. Small lymph nodes less than 1 cm in size are present in the mediastinum. Atherosclerotic calcification is present in the thoracic aorta. Degenerative change is present in the spine. IMPRESSION: 1. There is no pulmonary embolism. 2. Right upper lobe scarring. 3. Small 3 mm right upper lobe nodule unchanged in size compared to the previous study. Signed by Jose Betancur MD 03/13/2017 08:57 A
[2017-03-12] MEDS ORDERED: NALOXONE INJ 0.4 MG/1 ML VIAL (J2310) IV STA (17:46)
[2017-03-12] MEDS ORDERED: glipiZIDE (GLUCOTROL) 5 MG TAB PO ONE (18:00)
[2017-03-12] MEDS ORDERED: ONDANSETRON 4MG/2ML VIAL (J2405) IV PRN (18:00)
[2017-03-12] MEDS ORDERED: guaiFENesin DM LIQ 10ML UD PO PRN (18:00)
[2017-03-12] MEDS ORDERED: NS 1,000 ML IV SCH (18:00)
[2017-03-12] MEDS ORDERED: ACETAMINOPHEN TAB 650MG DOSE (2X325MG) PO PRN (18:00)
[2017-03-12] MEDS ORDERED: GLUCOSE 4 GM CHEW TABLET PO PRN (18:30)
[2017-03-12] MEDS ORDERED: DEXTROSE 50% 50 ML SYRINGE IV PRN (18:30)
[2017-03-12] MEDS ORDERED: GLUCAGON FOR INJ 1 MG VIAL (J1610) SC PRN (18:30)
[2017-03-12] MEDS ORDERED: ALBUTEROL SULFATE 2.5 MG/0.5 ML INH NEB SOLN INH PRN (18:30)
--- NOTE | 2017-03-12 19:34 | HPEPDOC ---
Medical History and Physical Date of Admission March 12, 2017 at 17:47 History and Physical PRIMARY CARE PROVIDER: Dr. Oneill ATTENDING: Tri Mcdermott MD CHIEF COMPLAINT: Shortness of breath HISTORY OF PRESENT ILLNESS: This is a 61-year-old female past history of severe COPD on 3 L home O2, questionable objective sleep apnea, diabetes, obesity, hypertension, history of CVA with no residual deficits, CHF, anemia, pulmonary nodules, chronic lower back pain, diabetic neuropathy who presents complaining of shortness of breath and cough. Patient was lethargic however was oriented 3, moving all extremities, and had been complaining of shortness of breath and cough as well as lethargy over the past 2-3 days. Patient has also been complaining of a fever 101.3. Decreased appetite. Was recently admitted and discharged last month for a COPD exacerbation secondary to viral illness. Patient states she has chronic abdominal pain and has had an extensive workup with no source found. PAST MEDICAL HISTORY: As per HPI PAST SURGICAL HISTORY: Cataracts, skin graft, partial hysterectomy SOCIAL HISTORY: Has smoked 3 packs per day since she was 20 however now is down to three quarters of a pack per day. No alcohol or illicit drug use. FAMILY HISTORY: Noncontributory ALLERGIES: Please see below. REVIEW OF SYSTEMS: HEENT: Denies sore throat/headache CARDIOVASCULAR: Denies chest pain/palpitations RESPIRATORY: + shortness of breath/cough GASTROINTESTINAL: denies nausea/vomiting GENITOURINARY: Denies dysuria/urinary urgency. MUSCULOSKELETAL: Denies myalgias/arthralgias NEUROLOGICAL: Denies any focal weakness Rest of ROS negative. HOME MEDICATIONS: Please see below. PHYSICAL EXAMINATION: Vitals: (see below) General: No acute distress, laying comfortably in bed. Lethargic however alert and oriented 3. HEENT: Moist mucous membranes. No nuchal rigidity. Neck: No JVD or lymphadenopathy Cardiac: RRR, No murmurs Pulm: Expiratory wheezing and rhonchi b/l. No stridor or use of accessory muscles. Abd: Minimal abdominal tenderness to palpation in the lower quadrants. No rebound guarding or rigidity. ND + BS Ext: No edema or cyanosis Neuro: Strength 5/5 BUE and BLE. CN 2-12 intact. Negative pronator drift. Negative Babinki. GCS 15 NIH 0 LABORATORY DATA: See below. IMAGING: CTA Chest 03/12/17 IMPRESSION: 1. There is no pulmonary embolism. 2. Right upper lobe scarring. 3. Small 3 mm right upper lobe nodule unchanged in size compared to the previous study. MICROBIOLOGY: Please see below. ASSESSMENT/PLAN: 1. Acute COPD exacerbation - recent admission for COPD exacerbation secondary to RSV. Continue nebulizers, steroids, started on Levaquin for possible bacterial bronchitis. Sputum cultures pending. Afebrile. 2. Lethargy- patient and daughter state that the patient has been drowsy over the past few days. Had a fever 101.3. Chest x-ray and CT negative for consolidation. We'll check urinalysis. We'll also send for a CAT scan of the abdomen and pelvis given nonspecific abdominal pain. Patient had been on narcotics as well as gabapentin at home which may be contributing. We'll continue neuro checks. No focal deficits on exam. TSH within normal limits. We' ll also check Ammonia level. If persistent, consider PRBC transfusion. 3. Diabetes mellitus- hold by mouth meds. Sliding scale insulin for now. 4. Hypertension- controlled continue home meds 5. History of CVA with no residual deficits. 6. Chronic stable pulmonary nodules 7. Chronic lower back pain- hold narcotics for now as patient is drowsy. 8. Obesity 9. Chronic microcytic anemia - ? SALUD - will need outpt colonoscopy. Hb at baseline from prior hospitalization. Cont to monitor. DVT prophylaxis- enoxaparin Patient was followed by Dr. Beaulieu starting 03/13/17 at 7 AM. Vital Signs Vital Signs Date Time Temp Pulse Resp B/P (MAP) Pulse Ox O2 Delivery O2 Flow Rate FiO2 03/12/17 18:22 98.8 03/12/17 18:03 98 20 94 03/12/17 17:48 Nasal Cannula 5.0 Laboratory Data Labs 24H Laboratory Tests 2 03/12/17 12:24: White Blood Count 7.1, Red Blood Count 3.82L, Hemoglobin 8.6L, Hematocrit 29.8L , Mean Corpuscular Volume 77.9L, Mean Corpuscular Hemoglobin 22.4L, Mean Corpuscular Hemoglobin Concent 28.8L, Red Cell Distribution Width 21.6H, Platelet Count 193, Neutrophils (%) (Auto) 69.2H, Lymphocytes (%) (Auto) 20.0L, Monocytes (%) (Auto) 6.2H, Eosinophils (%) (Auto) 0.5, Basophils (%) (Auto) 0.3 , Neutrophils # (Auto) 4.9, Lymphocytes # (Auto) 1.4L, Monocytes # (Auto) 0.4, Eosinophils # (Auto) 0.0, Basophils # (Auto) 0.0, Large Unclassified Cells % 3.8 , Large Unclassified Cells # 0.3, Platelet Estimate NORMAL, Hypochromasia 3+, Anisocytosis 2+, Microcytosis 2+, Anion Gap 7L, Glomerular Filtration Rate > 60.0, Calcium Level 8.4L, Aspartate Amino Transf (AST/SGOT) 13L, Alanine Aminotransferase (ALT/SGPT) 16, Alkaline Phosphatase 67, Total Bilirubin 0.3, Direct Bilirubin 0.1, Total Creatine Kinase 32, Creatine Kinase MB 1.0, Creatine Kinase MB Relative Index 3.12, Troponin I 0.05, B-Type Natriuretic Peptide 368H, Total Protein 6.3L, Albumin 2.5L, Albumin/Globulin Ratio 0.66L, Thyroid Stimulating Hormone (TSH) 0.789, Thyroxine (T4) 8.7 03/12/17 13:42: Blood Gas Bicarbonate Standard 28.6H, Arterial Blood pH 7.381, Arterial Blood Partial Pressure CO2 52.6H, Arterial Blood Partial Pressure O2 73.2L, Arterial Blood Total CO2 32.1H, Arterial Blood HCO3 30.5H, Arterial Blood Base Excess 4.6H, Arterial Blood Oxygen Saturation 93.6L 03/12/17 18:02: Total Creatine Kinase 36, Creatine Kinase MB 1.1, Creatine Kinase MB Relative Index 3.05, Troponin I 0.03# CBC/BMP Laboratory Tests 03/12/17 12:24 Red Blood Count 3.82 L, Mean Corpuscular Volume 77.9 L, Mean Corpuscular Hemoglobin 22.4 L, Mean Corpuscular Hemoglobin Concent 28.8 L, Red Cell Distribution Width 21.6 H, Neutrophils (%) (Auto) 69.2 H, Lymphocytes (%) (Auto ) 20.0 L, Monocytes (%) (Auto) 6.2 H, Eosinophils (%) (Auto) 0.5, Basophils (%) (Auto) 0.3, Neutrophils # (Auto) 4.9, Lymphocytes # (Auto) 1.4 L, Monocytes # ( Auto) 0.4, Eosinophils # (Auto) 0.0, Basophils # (Auto) 0.0 Microbiology Microbiology 03/12/17 Blood Culture, Received Pending 03/12/17 Blood Culture, Received Pending 03/12/17 Influenza Virus Type A Antigen - Final, Complete 03/12/17 Influenza Virus Type B Antigen - Final, Complete Home Medications Scheduled (Dexilant) 60 Mg Cap, 60 MG PO DAILY (Tab-A-Nancy) 1 Tab Tab, 1 TAB PO DAILY Citalopram Hydrobromide (Citalopram Hydrobromide) 20 Mg Tab, 20 MG PO DAILY Clopidogrel Bisulfate (Plavix) 75 Mg Tab, 75 MG PO DAILY Diphenhydramine HCl (Benadryl Allergy) 25 Mg Cap, 25 MG PO QHS Fluticasone/Vilanterol (Breo Ellipta 100-25 Mcg/INH) 1 Inh Inh, 1 PUFF INH DAILY HAS BEEN OUT OF FOR A FEW DAYS Gabapentin (Gabapentin) 600 Mg Tab, 600 MG PO TID Glipizide (Glipizide) 10 Mg Tab, 10 MG PO BID Guaifenesin (Guaifenesin ER) 600 Mg Tab, 600 MG PO BID Losartan Potassium (Losartan Potassium) 25 Mg Tab, 25 MG PO DAILY Metformin Hydrochloride (Metformin HCl) 500 Mg Tab, 500 MG PO BID Metoprolol Tartrate (Metoprolol Tartrate) 25 Mg Tab, 25 MG PO BID HAS BEEN OUT OF FOR A FEW DAYS Mirtazapine (Mirtazapine) 30 Mg Tab, 30 MG PO QHS Nicotine (Nicotine Step 1) 21 Mg/24 Hr Dis, 21 MG TD DAILY DOES NOT HAVE A PATCH ON CURRENTLY Simvastatin (Simvastatin) 10 Mg Tab, 10 MG PO QHS Tiotropium Phoenix Monohydrate (Spiriva Handihaler) 18 Mcg Cap, 18 MCG INH DAILY HAS BEEN OUT FOR A FEW DAYS Scheduled PRN (Robitussin Peak Cold Dm 100-10 mg/5Ml) 1 Syp Syp, 10 ML PO ASDIRECTED PRN for COUGH Albuterol/Ipratropium (Ipratropium Phoenix/Albut 0.5-2.5 (3) mg/3Ml) 1 Yoni Yoni, 1 YONI INH Q6H PRN for SHORTNESS OF BREATH Oxycodone/Acetaminophen (Oxycodone/Acetaminophen 5-325 mg) 1 Tab Tab, 1 TAB PO Q12H PRN for PAIN Allergies Coded Allergies: Bupropion (Verified Allergy, Unknown, "violent", 02/22/17) Latex (Verified Allergy, Unknown, 02/07/13) Penicillins (Verified Allergy, Unknown, 02/07/13) Penicillins Cross Reactors (Verified Allergy, Unknown, 02/07/13) Erythromycin (Verified Adverse Reaction, Mild, VOMITTING, 02/07/13) TRI MCDERMOTT MD March 12, 2017 19:34
[2017-03-12] MEDS: IPRATROPIUM 0.5MG/ALBUTEROL 2.5MG INH SOL UD 3ML (DUONEB)(J7620) NEB SCH (20:00)
--- NOTE | 2017-03-12 20:00 | REPUSA ---
CLINICAL HISTORY: AMS. TECHNIQUE: Multiple axial brain CT scan sections were obtained from base to vertex without contrast a dministration. COMMENTS: The study shows normal configuration of sella turcica. There are no intra or extra-axial collections. There is no mass effect or midline shift. There is no evidence of hematoma formation. No hydrocephal us is present. No abnormal calcifications are noted. No significant abnormalities are seen either in the posterior fossa or supratentorial compartment. The sinuses and mastoid air cells are patent. IMPRESSION: No evidence of acute intracranial pathology. Thank you for your kind referral of this patient.
--- NOTE | 2017-03-12 20:20 | REPUSA ---
CT of the abdomen and pelvis without contrast Clinical statement: Pain. Technique: Multiple axial CT images were obtained from the base of the lungs to the floor of the pelv is utilizing 5 mm axial slices without administration of contrast. Coronal and sagittal reconstructio ns were also obtained. No comparison is available. Findings: Chest: The visualized lung bases are clear. Abdomen: The kidneys are normal in size bilaterally. There is a simple cyst in the posterior left kid cr measuring 2.2 x 2.9 cm. Residual contrast is seen within the renal collecting systems. There is n o evidence of hydronephrosis or nephrolithiasis. The liver, spleen, pancreas, gallbladder and adrenal glands are unremarkable. The aorta demonstrates normal caliber and contour. There is no abdominal ly mphadenopathy or ascites. Pelvis: The bowel is unremarkable, with no obstructive or inflammatory changes. The urinary bladder i s within normal limits. There is no pelvic lymphadenopathy or ascites. The other pelvic structures ap pear unremarkable. Bones: There are no suspicious osseous abnormalities seen. There severe degenerative disc disease and disc osteophyte complexes at L3/L4 and L4/L5, causing severe central canal stenosis. Impression: 1. No obstructive or inflammatory bowel changes. 2. No evidence of hydronephrosis. Simple left renal cyst. 3. Severe degenerative disc disease with disc osteophyte complexes at L3/L4 and L4/L5 causing severe central canal stenosis.
[2017-03-12 21:15] VITALS: BP 158/73
[2017-03-12] MEDS: methylPREDNISolone INJ 40 MG/1 ML VIAL (J2920) IV SCH (23:25)
[2017-03-12] MEDS: HumaLOG INSULIN (NovoLOG) PER UNIT SC SCH (23:26)
[2017-03-12] MEDS: MIRTAZAPINE 15 MG TAB PO SCH (23:27)
[2017-03-12] MEDS: METOPROLOL TART 25 MG TABLET PO SCH (23:27)
[2017-03-12] MEDS: SIMVASTATIN 10 MG TAB PO SCH (23:27)
[2017-03-12] MEDS: guaiFENesin ER 600 MG TAB PO SCH (23:27)
[2017-03-12] MEDS: LevoFLOXacin IV 500 MG in APPROPRIATE DILUENT 1 EA IV SCH (23:44)
[2017-03-12] MEDS: FERROUS SULFATE 325MG TAB PO SCH (23:45)
[2017-03-13] VITALS (7 sets, daily range): BP systolic 120–162; BP diastolic 56–70; O2SAT 96
[2017-03-13] MEDS: IPRATROPIUM 0.5MG/ALBUTEROL 2.5MG INH SOL UD 3ML (DUONEB)(J7620) NEB SCH ×6 (00:24→23:31)
[2017-03-13 04:40] LABS: ANION GAP 7 MEQ/L (8-16); BLOOD UREA NITROGEN 13 MG/DL (7-18); CALCIUM LEVEL 8.4 MG/DL (8.8-10.2); CARBON DIOXIDE LEVEL 33 MEQ/L (21-32); CHLORIDE LEVEL 103 MEQ/L (98-107); CREATININE FOR GFR 0.51 MG/DL (0.55-1.02); GLOMERULAR FILTRATION RATE > 60.0 (>45); GLUCOSE, FASTING 217 MG/DL (80-110); MAGNESIUM LEVEL 1.6 MG/DL (1.8-2.4); PERCENT SATURATION 4.9 % (13.2-37.4); SODIUM LEVEL 143 MEQ/L (136-145); TOTAL IRON BINDING CAPACITY 304 UG/DL (250-450)
[2017-03-13 04:41] LABS: FERRITIN 45 NG/ML (8-252)
[2017-03-13 04:49] LABS: MEAN CORPUSCULAR HEMOGLOBIN 21.5 pg (27.0-33.0); MEAN CORPUSCULAR HGB CONC 28.1 g/dl (32.0-36.5); MEAN CORPUSCULAR VOLUME 76.4 fl (80.0-96.0); RED CELL DISTRIBUTION WIDTH 21.5 % (11.5-14.5); RETIC HEMOGLOBIN CONTENT CHr 26.8 PG (24-36); RETICULOCYTE % ADVIA2120 1.8 % (0.5-1.5); WHITE BLOOD COUNT 6.2 K/mm3 (4.0-10.0)
[2017-03-13] MEDS: methylPREDNISolone INJ 40 MG/1 ML VIAL (J2920) IV SCH ×3 (05:35→20:23)
[2017-03-13] MEDS ORDERED: MAG SULF 1GM/100ML (MAG RUN) 1 GM in APPROPRIATE DILUENT 1 EA IV ONE (06:45)
[2017-03-13] MEDS ORDERED: glipiZIDE 10 MG TAB PO SCH (07:30)
[2017-03-13] MEDS: HumaLOG INSULIN (NovoLOG) PER UNIT SC SCH ×4 (07:30→20:28)
[2017-03-13] MEDS: TIOTROPIUM INHALER/CAPSULE (SPIRIVA) INH SCH (07:37)
[2017-03-13 07:47] LABS: ABG BASE EXCESS 4.4 (-2.0-2.0); ABG HCO3 30.7 MEQ/L (22.0-26.0); ABG PARTIAL PRESSURE CO2 55.5 mmHg (35.0-45.0); ABG PARTIAL PRESSURE O2 80.9 mmHg (75.0-100.0); ABG STANDARD HCO3 28.4 MEQ/L (22.0-26.0); ABG TOTAL CO2 32.4 MEQ/L (23.0-31.0)
[2017-03-13] MEDS: NICOTINE 21MG/24HR 1 EA TRANSDERMAL TD SCH (09:00)
[2017-03-13] MEDS: FERROUS SULFATE 325MG TAB PO SCH ×3 (09:29→20:24)
[2017-03-13] MEDS: CitaloPRAM (CeleXA) 20 MG TAB PO SCH (09:29)
[2017-03-13] MEDS: METOPROLOL TART 25 MG TABLET PO SCH ×2 (09:29→20:25)
[2017-03-13] MEDS: LOSARTAN 25 MG TAB PO SCH (09:30)
[2017-03-13] MEDS: CLOPIDOGREL 75 MG TAB PO SCH (09:30)
[2017-03-13] MEDS: guaiFENesin ER 600 MG TAB PO SCH ×2 (09:30→20:26)
[2017-03-13 09:55] LABS: VITAMIN B12 LEVEL 540 PG/ML (247-911)
--- NOTE | 2017-03-13 10:11 | IPNPDOC ---
Subjective Date Seen The patient was seen on 03/13/17. Subjective Chief Complaint/HPI The patient is a 61-year-old female admitted with a reason for visit of Altered Mental Status. Events since last encounter Patient was seen this morning at bedside. Oriented x 3. She reports that she has been on gabapentin for a while and not clear on what happened yesterday. This morning, she denies any headache, lightheadedness or dizziness. No chest pain/pressure or increased SOB. Chronically uses between 2.5-3L of O2. She reports chronic back pain that is unchanged from her baseline. She denies any increased lower extremity weakness. No paresthesias or saddle anesthesia. No bowel or bladder dysfunction (no retention or incontinence). No fevers and vitals are stable Objective Physical Examination General Exam: Positive: Alert, Cooperative, No Acute Distress Eye Exam: Positive: Conjunctiva & lids normal, EOMI, Negative: Sclera icteric ENT Exam: Positive: Atraumatic, Mucous membr. moist/pink, Pharynx Normal Neck Exam: Positive: Supple, Negative: thyromegaly Chest Exam: Positive: Clear to auscultation, Normal air movement Heart Exam: Positive: Rate Normal, Regular Rhythm, Normal S1, Normal S2 Abdomen Exam: Positive: Normal bowel sounds, Soft, Negative: Tenderness Extremity Exam: Positive: Normal pulses, Negative: Cyanosis, Edema Skin Exam: Positive: Nl turgor and temperature, Negative: Rash Neuro Exam: Positive: Normal Speech, Strength at 5/5 X4 ext, Normal Tone, Sensation Intact, Cranial Nerves 3-12 NL Psych Exam: Positive: Mental status NL, Mood NL, Oriented x 3 Assessment /Plan Problems (1) Altered mental status Onset Date: ~ 03/2017 Status: Acute Problem Specific Plan: Monitor Clinically Problem Text: * Probably secondary to medication, that being gabapentin * She appears at baseline this morning * Continue to monitor neurologically * Head CT negative, she refused MRI of the brain (2) COPD with acute exacerbation Status: Acute Problem Specific Plan: Monitor Clinically Problem Text: * Currently on Solumedrol, Levaquin, Spiriva duoneb breathing treatment * Titrate O2 to 88-92% * Resp panel and blood culture pending, influenza negative (3) Chronic low back pain Status: Chronic Problem Specific Plan: Monitor Clinically Problem Text: * Reports that this is unchanged from baseline * Pain management has been consulted for assistance with management * Abd/pelvic CT revealed severe degenerative disc disease with disc osteophyte complexes at L3/L4 and L4/L5 causing severe central canal stenosis * Refused MRI of the lumbar spine (4) CHF (congestive heart failure) Status: Chronic Problem Specific Plan: Monitor Clinically Problem Text: * Appears compensated at this time (5) Diabetes Status: Chronic Problem Text: * Insulin sliding scale w/ hypoglycemic protocol (6) Diabetic neuropathy Status: Chronic Problem Specific Plan: Monitor Clinically Problem Text: * Gabapentin held (7) HTN (hypertension) Status: Chronic Problem Specific Plan: Monitor Clinically Problem Text: * BP stable * Continue Cozaar and Lopressor (8) Pulmonary nodule Status: Chronic Problem Text: * 3 mm nodule noted on chest CT, unchanged from prior imaging Plan/VTE VTE Prophylaxis Ordered?: Yes (heparin) VS, I&O, 24H, Fishbone Vital Signs/I&O Vital Signs Date Time Temp Pulse Resp B/P (MAP) Pulse Ox O2 Delivery O2 Flow Rate FiO2 03/13/17 09:29 75 148/68 03/13/17 08:00 98.0 18 94 Nasal Cannula 3.0 I&O- Last 24 Hours up to 6 AM 03/13/17 06:00 Intake Total 1110 ml Output Total 450 ml Balance 660 ml Laboratory Data CBC/BMP Laboratory Tests 03/12/17 12:24 Red Blood Count 3.82 L, Mean Corpuscular Volume 77.9 L, Mean Corpuscular Hemoglobin 22.4 L, Mean Corpuscular Hemoglobin Concent 28.8 L, Red Cell Distribution Width 21.6 H, Neutrophils (%) (Auto) 69.2 H, Lymphocytes (%) (Auto ) 20.0 L, Monocytes (%) (Auto) 6.2 H, Eosinophils (%) (Auto) 0.5, Basophils (%) (Auto) 0.3, Neutrophils # (Auto) 4.9, Lymphocytes # (Auto) 1.4 L, Monocytes # ( Auto) 0.4, Eosinophils # (Auto) 0.0, Basophils # (Auto) 0.0 03/13/17 04:07 Calcium Level 8.4 L, Total Creatine Kinase 25 L 03/13/17 04:08 Red Blood Count 4.10, Mean Corpuscular Volume 76.4 L, Mean Corpuscular Hemoglobin 21.5 L, Mean Corpuscular Hemoglobin Concent 28.1 L, Red Cell Distribution Width 21.5 H Microbiology Microbiology 03/12/17 Blood Culture, Received Pending 03/12/17 Blood Culture, Received Pending 03/12/17 Respiratory Virus Panel (PCR) (JOSE A), Received Pending 03/12/17 Influenza Virus Type A Antigen - Final, Complete 03/12/17 Influenza Virus Type B Antigen - Final, Complete MAT TEMPLETON DO March 13, 2017 10:11
--- NOTE | 2017-03-13 11:03 | ECGEPIP ---
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
[2017-03-13] MEDS ORDERED: NYSTATIN 100,000 UNITS/GM TOPICAL PWD 15 GM TOP PRN (12:00)
[2017-03-13] MEDS: HEPARIN SOD (PORCINE) 5000 UNITS/ML VIAL SQ SCH ×2 (13:16→21:42)
[2017-03-13] MEDS: LevoFLOXacin IV 500 MG in APPROPRIATE DILUENT 1 EA IV SCH (20:23)
[2017-03-13] MEDS: SIMVASTATIN 10 MG TAB PO SCH (20:27)
[2017-03-13] MEDS: MIRTAZAPINE 15 MG TAB PO SCH (20:27)
[2017-03-14 02:00] VITALS: BP 130/62
[2017-03-14] MEDS: IPRATROPIUM 0.5MG/ALBUTEROL 2.5MG INH SOL UD 3ML (DUONEB)(J7620) NEB SCH ×3 (03:09→12:00)
[2017-03-14] MEDS: HEPARIN SOD (PORCINE) 5000 UNITS/ML VIAL SQ SCH (05:45)
[2017-03-14] MEDS: methylPREDNISolone INJ 40 MG/1 ML VIAL (J2920) IV SCH (05:46)
[2017-03-14 05:59] LABS: MEAN CORPUSCULAR HEMOGLOBIN 21.7 pg (27.0-33.0); MEAN CORPUSCULAR HGB CONC 27.2 g/dl (32.0-36.5); MEAN CORPUSCULAR VOLUME 79.8 fl (80.0-96.0); RED CELL DISTRIBUTION WIDTH 21.7 % (11.5-14.5); WHITE BLOOD COUNT 5.8 K/mm3 (4.0-10.0)
[2017-03-14 06:00] VITALS: BP 146/58
[2017-03-14 06:19] LABS: ANION GAP 5 MEQ/L (8-16); BLOOD UREA NITROGEN 19 MG/DL (7-18); CALCIUM LEVEL 9.2 MG/DL (8.8-10.2); CARBON DIOXIDE LEVEL 31 MEQ/L (21-32); CHLORIDE LEVEL 104 MEQ/L (98-107); CREATININE FOR GFR 0.68 MG/DL (0.55-1.02); GLOMERULAR FILTRATION RATE > 60.0 (>45); GLUCOSE, FASTING 377 MG/DL (80-110); MAGNESIUM LEVEL 1.8 MG/DL (1.8-2.4); POTASSIUM SERUM 4.7 MEQ/L (3.5-5.1); SODIUM LEVEL 140 MEQ/L (136-145)
[2017-03-14] MEDS ORDERED: predniSONE 20 MG TAB PO ONE (07:00)
[2017-03-14] MEDS ORDERED: PRED10TA PO (07:01)
[2017-03-14] MEDS: TIOTROPIUM INHALER/CAPSULE (SPIRIVA) INH SCH (07:13)
[2017-03-14] MEDS: HumaLOG INSULIN (NovoLOG) PER UNIT SC SCH (08:17)
[2017-03-14 09:00] VITALS: BP 189/81
[2017-03-14] MEDS: NICOTINE 21MG/24HR 1 EA TRANSDERMAL TD SCH (09:00)
[2017-03-14] MEDS: guaiFENesin ER 600 MG TAB PO SCH (09:47)
[2017-03-14] MEDS: FERROUS SULFATE 325MG TAB PO SCH (09:48)
[2017-03-14 09:49] VITALS: BP 189/81
[2017-03-14] MEDS: CLOPIDOGREL 75 MG TAB PO SCH (09:49)
[2017-03-14] MEDS: LOSARTAN 25 MG TAB PO SCH (09:49)
[2017-03-14] MEDS: CitaloPRAM (CeleXA) 20 MG TAB PO SCH (09:49)
[2017-03-14] MEDS: METOPROLOL TART 25 MG TABLET PO SCH (09:50)
--- NOTE | 2017-03-15 08:46 | DSES ---
DATE OF ADMISSION: 03/12/2017 DATE OF DISCHARGE: 03/14/2017 ATTENDING PHYSICIAN: Desirae Beaulieu MD DISCHARGE DIAGNOSES: 1. Altered mentation, secondary to medication. 2. Chronic obstructive pulmonary disease (COPD) exacerbation, secondary to viral illness. 3. Diabetes. 4. Hypertension. 5. Chronic back pain, unchanged. 6. History of CVA without residual deficit. 7. Chronic hypoxic respiratory failure on 3 liters oxygen. 8. Diabetes. 9. Congestive heart failure (CHF). 10. Diabetic neuropathy. 11. Chronic anemia. 12. Pulmonary nodule, unchanged from previous. DISCHARGE MEDICATIONS: - prednisone taper - ipratropium/albuterol nebulizer inhaled every 6 hours as needed - citalopram 20 mg by mouth daily - Plavix 75 mg by mouth daily - Dexilant 60 mg by mouth daily - Benadryl 25 mg by mouth at night - Breo 1 puff inhaled daily - glipizide 10 mg by mouth twice daily - guaifenesin 600 mg by mouth twice daily - losartan potassium 25 mg by mouth daily - metformin 500 mg by mouth twice daily - metoprolol 25 mg by mouth twice daily - mirtazapine 30 mg by mouth at night - nicotine 21 mg transdermal daily - Robitussin 10 mL as needed - simvastatin 10 mg by mouth at night - Tab-A-Nancy 1 tablet by mouth daily - Spiriva HandiHaler 80 mcg inhaled daily DISCONTINUED MEDICATIONS: - gabapentin 600 mg by mouth three times daily - Percocet 1 tablet by mouth every 12 hours as needed BRIEF HOSPITAL COURSE: The patient originally came in with symptoms of lethargy. However, she was oriented times three and moving all extremities. She also was complaining of cough and shortness of breath, as well as fever and decreased appetite. She was recently admitted and discharged last month for COPD exacerbation secondary to viral illness. She was admitted to the hospital and all sedative medications were discontinued. Patient was on gabapentin as well as Percocet at home. She was monitored on telemetry floor and had neurological checks. Withholding her medication, her mentation returned back to baseline. She did have a head CT, which did not show any acute findings. She refused MRI of the brain. She had complained of cough and shortness of breath. Therefore, respiratory panel was obtained, which was positive for rhinovirus/enterovirus. On admission, she was started on Levaquin. However, when respiratory panel came back, antibiotic was discontinued. She was continued on prednisone and felt significantly better. She does have history of chronic back pain, which was unchanged during hospitalization. Her abdomen/ pelvic CT showed severe degenerative disc disease with central canal stenosis. However, she refused MRI of the lumbar spine as well. She reported that her back pain was unchanged, and she did not have any new weakness or paresthesias or saddle anesthesia, and bowel and bladder function was within normal. All of her other chronic medical conditions remained stable during hospitalization. She was eager to go home and was subsequently stable for discharge. On day of discharge, patient was afebrile. Vitals were stable. She denied any chest pain, chest pressure or shortness of breath. No nausea, vomiting, abdominal pain, diarrhea, lightheadedness, dizziness, fevers, chills. She was on her baseline oxygen requirement of 3 liters. Back pain was stable. No new neurological deficits including weakness, paresthesias, anesthesia or bowel or bladder dysfunction. LABORATORY DATA: On discharge, WBC 5.8, hemoglobin 8.9, hematocrit 32.8, platelet count 201. Sodium 140, potassium 4.7, chloride 104, carbon dioxide 31, anion gap 5, BUN 19, creatinine 0.68, GFR greater than 60, fasting glucose 377, calcium 9.2, magnesium 1.8. MICROBIOLOGY: Influenza was negative. Respiratory panel was positive for rhinovirus and enterovirus. Blood culture showed no growth after 24 hours. IMAGING STUDIES: Patient had a chest x-ray, which was unremarkable. CT of the chest showed right upper lobe scarring and a small 3 mm right upper lobe nodule, which is unchanged from previous study. Abdomen/pelvis CT, besides the lumbar findings, was negative. DISCHARGE INSTRUCTIONS: Patient is discharged in stable condition. She should followup with her primary care physician next week. Activity as tolerated. COPD diet. Return to emergency department with any worsening or recurring symptoms. THINGS TO FOLLOWUP ON: Patient's blood cultures have not been finalized. TIME SPENT ON DISCHARGE: Greater than 30 minutes. My preceptor for this patient encounter was Desirae Beaulieu MD. The preceptor was physically present in the building during the encounter and was fully available. As needed, all aspects of the patient interview, examination, medical decision making process, and medical care plan development were reviewed and approved by the preceptor. The preceptor is aware and concurs with the plan as stated in the body of this note and will attest to such by his/her co-signature.
== END 2017-03-14 12:28 | disposition home health service (06) | DRG 192 ==
LOC: M ED 13:05 → M ED INP 17:47 → M PCU 21:14 → M MSPAV 03-13 11:27
PROVIDERS: ADMIT Internal Medicine; ATTEND General Practice
DX: J44.1 Chronic obstructive pulmonary disease with (acute) exacerbation (principal); J44.0 Chronic obstructive pulmonary disease with (acute) lower respiratory infection; E11.40 Type 2 diabetes mellitus with diabetic neuropathy, unspecified; F17.210 Nicotine dependence, cigarettes, uncomplicated; I11.0 Hypertensive heart disease with heart failure; B34.8 Other viral infections of unspecified site; M54.5 Low back pain; D64.9 Anemia, unspecified; R91.1 Solitary pulmonary nodule; Z99.81 Dependence on supplemental oxygen; I50.9 Heart failure, unspecified; R41.82 Altered mental status, unspecified; Z79.84 Long term (current) use of oral hypoglycemic drugs; Z79.899 Other long term (current) drug therapy; Z79.02 Long term (current) use of antithrombotics/antiplatelets; E66.9 Obesity, unspecified; Z86.73 Personal history of transient ischemic attack (TIA), and cerebral infarction without residual deficits; Z90.710 Acquired absence of both cervix and uterus; Z91.040 Latex allergy status; Z88.0 Allergy status to penicillin; Z88.1 Allergy status to other antibiotic agents; T43.8X5A Adverse effect of other psychotropic drugs, initial encounter

== ENCOUNTER 2017-04-10 19:05 | Emergency (ER) | payer MEDICARE, MEDICAID ==
[~2017-04-10] VITALS: Ht 152.4 cm; Wt 86.2 kg
[~2017-04-10 19:05] MED LIST changes: +BREO1INH INH; +GLIP10TA6 PO; +GUAI1TAB PO; +IPRASOL4 INH; +MIRT30TA3 PO; +NICODIS TD; +TAB-TAB PO
[2017-04-10] MEDS ORDERED: IPRATROPIUM 0.5MG/ALBUTEROL 2.5MG INH SOL UD 3ML (DUONEB)(J7620) NEB ONE (20:00)
[2017-04-10 20:21] LABS: ANION GAP 9 MEQ/L (8-16); BLOOD UREA NITROGEN 15 MG/DL (7-18); CALCIUM LEVEL 7.5 MG/DL (8.8-10.2); CARBON DIOXIDE LEVEL 27 MEQ/L (21-32); CHLORIDE LEVEL 103 MEQ/L (98-107); CREATININE FOR GFR 0.73 MG/DL (0.55-1.02); GLOMERULAR FILTRATION RATE > 60.0 (>45); GLUCOSE, FASTING 97 MG/DL (80-110); INR 1.19; SODIUM LEVEL 139 MEQ/L (136-145)
[2017-04-10 20:23] LABS: BASO % 0.2 % (0.0-1.0); EOS # 0.1 K/mm3 (0.0-0.50); EOS % 1.4 % (0.0-3.0); LARGE UNSTAINED CELL # 0.2 K/mm3 (0.0-0.4); LYMPH # 1.9 K/mm3 (1.5-4.5); LYMPH % 20.6 % (24.0-44.0); MEAN CORPUSCULAR HEMOGLOBIN 21.8 pg (27.0-33.0); MEAN CORPUSCULAR HGB CONC 28.7 g/dl (32.0-36.5); MEAN CORPUSCULAR VOLUME 75.9 fl (80.0-96.0); MONO # 0.4 K/mm3 (0.0-0.8); MONO % 3.8 % (0.0-5.0); NEUTROPHILS # 6.6 K/mm3 (1.8-7.7); PLATELET COUNT, AUTOMATED 300 k/mm3 (150-450); RED CELL DISTRIBUTION WIDTH 22.4 % (11.5-14.5); WHITE BLOOD COUNT 9.2 K/mm3 (4.0-10.0)
[2017-04-10 20:24] LABS: ADD MORPHOLOGY? YES
[2017-04-10 20:35] LABS: ABG BASE EXCESS 1.1 (-2.0-2.0); ABG HCO3 24.4 MEQ/L (22.0-26.0); ABG PARTIAL PRESSURE CO2 33.3 mmHg (35.0-45.0); ABG PARTIAL PRESSURE O2 103.5 mmHg (75.0-100.0); ABG STANDARD HCO3 25.5 MEQ/L (22.0-26.0); ABG TOTAL CO2 25.4 MEQ/L (23.0-31.0); ABG pH (ARTERIAL) 7.483 UNITS (7.350-7.450)
[2017-04-10 20:48] LABS: ANISOCYTOSIS 4+; HYPOCHROMASIA 2+; MICROCYTOSIS 1+; POIKILOCYTOSIS 2+; TARGET CELLS 1+
[2017-04-10 20:49] LABS: OVALOCYTES 1+; POLYCHROMASIA 3+; SCHISTOCYTES 1+
--- NOTE | 2017-04-10 21:03 | REP ---
CHEST, ONE VIEW: HISTORY: Chest pain. COMPARISON: 03/12/2017 The lungs are clear. The heart is upper limits of normal in size. The pulmonary vasculature is normal in appearance. IMPRESSION: No acute disease. Signed by Jose Betancur MD 04/11/2017 09:00 A
[2017-04-10] MEDS ORDERED: dexameTHASONE 20 MG/5 ML VIAL (J1100) IV ONE (21:15)
[2017-04-10] MEDS ORDERED: APIXABAN 5 MG TAB (ELIQUIS) PO ONE ×3 (21:15→23:00)
--- NOTE | 2017-04-10 21:40 | REPUSA ---
Clinical history: Pain, swelling. Findings: The common femoral vein compresses normally and demonstrate normal color Doppler flow. Lawson crystal, there is occlusive thrombus in the distal left superficial femoral vein, extending through the p opliteal vein into the calf. Impression: Occlusive deepvein thrombosis in the distal left superficial femoral vein, popliteal vein, and the di stal veins of the calf.
[2017-04-10] MEDS ORDERED: ISOVUE-370 76% 100ML VIAL (Q9967) As Ordered ONE (21:41)
--- NOTE | 2017-04-10 22:30 | REPUSA ---
CT angiogram of the chest Clinical statement: Chest pain and dyspnea. Technique: Multiple axial CT images were obtained from the thoracic inlet through the upper abdomen a fter a bolus administration of nonionic intravenous contrast. Coronal and sagittal reconstructions we re also obtained. Comparison: 03/12/2017. Findings: The pulmonary arteries are well-opacified with contrast. There are intraluminalfilling defe cts within all segmental branches of the right lung. There is also filling defects within segmental b ranches of the left lower lobe. The thoracic aorta is unremarkable. Thyroid gland is within normal li mits. There is no thoracic lymphadenopathy. There are no pericardial or pleural effusions. The lungs are clear of acute infiltrate. Minimal scarring is seen in the lateral right middle lobe. Limited roman ging of the upper abdomen is unremarkable. There are no suspicious osseous lesions. Impression: 1. Acute pulmonary emboli within the segmental branches of the right upper, middle, and lower lobes, as well as the left lower lobe. 2. Minimal atelectasis in the lateral left lung base. 3. Minimal scarring/atelectasis in the lateral right middle lobe. ER physician was notified of these findings at 10:24 PM on 04/10/2017.
[2017-04-10] MEDS ORDERED: PRED20TA PO (23:04)
[2017-04-10 23:37] VITALS: BP 105/67
== END 2017-04-10 23:39 | disposition home or self-care (01) ==
LOC: M ED 19:50
DX: I82.412 Acute embolism and thrombosis of left femoral vein (principal); I82.432 Acute embolism and thrombosis of left popliteal vein; I26.99 Other pulmonary embolism without acute cor pulmonale; J98.11 Atelectasis; J44.9 Chronic obstructive pulmonary disease, unspecified; E11.9 Type 2 diabetes mellitus without complications; I11.0 Hypertensive heart disease with heart failure; I50.9 Heart failure, unspecified; E03.9 Hypothyroidism, unspecified; D64.9 Anemia, unspecified; Z99.81 Dependence on supplemental oxygen; Z88.1 Allergy status to other antibiotic agents; Z88.8 Allergy status to other drugs, medicaments and biological substances; Z91.040 Latex allergy status; Z79.899 Other long term (current) drug therapy; Z79.02 Long term (current) use of antithrombotics/antiplatelets; Z79.84 Long term (current) use of oral hypoglycemic drugs
CPT/HCPCS: 36600; 71010; 71275; 80048; 82803; 83880; 85025; 85610; 85730; 93971; 94640; 96374; 99283; J1100; Q9967

== ENCOUNTER → 2017-05-01 | Outpatient (CLI) | payer MEDICARE, MEDICAID ==
[2017-05-01 14:20] LABS: ANION GAP 6 MEQ/L (8-16); BLOOD UREA NITROGEN 4 MG/DL (7-18); CALCIUM LEVEL 8.7 MG/DL (8.8-10.2); CARBON DIOXIDE LEVEL 33 MEQ/L (21-32); CHLORIDE LEVEL 102 MEQ/L (98-107); CREATININE FOR GFR 0.53 MG/DL (0.55-1.02); GLOMERULAR FILTRATION RATE > 60.0 (>45); GLUCOSE, FASTING 83 MG/DL (80-110); POTASSIUM SERUM 4.3 MEQ/L (3.5-5.1); SODIUM LEVEL 141 MEQ/L (136-145)
== END ==
LOC: M LAB 13:32
PROVIDERS: ATTEND Family Medicine
DX: I50.9 Heart failure, unspecified (principal)

== ENCOUNTER 2017-06-07 10:56 | Inpatient (IN) | payer MEDICARE, MEDICAID ==
[~2017-06-07] VITALS: Ht 152.4 cm; Wt 92.7 kg
[~2017-06-07 10:56] MED LIST changes: -DEXI60CA PO; +DEXI60CA2 PO; -GUAI60TA PO; +LEVA1TAB2 PO; -LEVA500T PO; -LEVA750T PO; +LEVA750T7 PO; -METF500T PO; +METF500T13 PO; -METO12TA PO; +METO1TAB87 PO; +METO25TA4 PO; +MUCI600T31 PO; +PLAV1TAB2 PO; -PLAV75TA38 PO
[2017-06-07] MEDS ORDERED: NORCO, ANEXSIA 5/325MG TABLET (HYDROcodone/ACETAMINOPHEN) PO ONE ×2 (11:30→13:30)
[2017-06-07 12:07] LABS: MEAN CORPUSCULAR HEMOGLOBIN 19.8 pg (27.0-33.0); MEAN CORPUSCULAR HGB CONC 26.3 g/dl (32.0-36.5); MEAN CORPUSCULAR VOLUME 75.2 fl (80.0-96.0); RED CELL DISTRIBUTION WIDTH 20.9 % (11.5-14.5); WHITE BLOOD COUNT 7.5 K/mm3 (4.0-10.0)
[2017-06-07 12:21] LABS: ALKALINE PHOSPHATASE 89 U/L (45-117); ALT/SGPT 9 U/L (12-78); ANION GAP 7 MEQ/L (8-16); AST/SGOT 15 U/L (15-37); BILIRUBIN,DIRECT 0.2 MG/DL (0.0-0.2); BILIRUBIN,TOTAL 0.4 MG/DL (0.2-1.0); BLOOD UREA NITROGEN 8 MG/DL (7-18); CALCIUM LEVEL 8.4 MG/DL (8.8-10.2); CARBON DIOXIDE LEVEL 30 MEQ/L (21-32); CHLORIDE LEVEL 103 MEQ/L (98-107); CREATININE FOR GFR 0.64 MG/DL (0.55-1.02); GLOMERULAR FILTRATION RATE > 60.0 (>45); GLUCOSE, FASTING 54 MG/DL (80-110); POTASSIUM SERUM 4.5 MEQ/L (3.5-5.1); SODIUM LEVEL 140 MEQ/L (136-145); TOTAL PROTEIN 7.3 GM/DL (6.4-8.2)
[2017-06-07 12:49] LABS: INR 1.05
[2017-06-07] MEDS ORDERED: DEXTROSE 50% 50 ML SYRINGE IV STA (12:58)
[2017-06-07] MEDS ORDERED: SIMV20TA2 PO (13:25)
[2017-06-07] MEDS ORDERED: ELIQ5TAB PO (13:25)
[2017-06-07] MEDS ORDERED: ACET1TAB17 PO (13:25)
[2017-06-07] MEDS ORDERED: SPIR50TA2 PO (13:25)
[2017-06-07] MEDS ORDERED: POLY2.5S OU (13:25)
[2017-06-07] MEDS ORDERED: FURO40TA2 PO (13:25)
--- NOTE | 2017-06-07 13:41 | REP ---
REASON: Swelling. The patient has a known left thigh deep vein thrombosis seen on an exam of 04/10/2017. Today's examination shows abnormal echogenic material in the superficial femoral vein on the left extending to the popliteal vein. Whether this represents acute disease on chronic change or purely represents chronic change cannot be stated by this exam. Multiple ultrasonographic images of the deep venous structures of the right thigh were obtained along with Doppler interrogative compressive techniques and color flow imaging. There is abnormal echogenic material seen in the right popliteal vein where coaptation is not achievable. Augmentation is suboptimal. IMPRESSION: There is a new right popliteal vein deep venous thrombosis. Signed by Deuce Case DO 06/07/2017 03:13 P
--- NOTE | 2017-06-07 13:46 | REP ---
REASON: Dyspnea. COMPARISON: Portable examination obtained 04/10/2017. There is mild cardiomegaly status quo. There is mild interstitial fibrotic change in the lung bases. No patchy opacities or pleural effusions have developed. There is no change in the osseous structures. There is a mild diffuse increase in the interstitial markings of the lung brito with a slight vascular haziness. IMPRESSION: Mild cardiomegaly and possible mild interstitial edema. Correlate clinically. Signed by Deuce Case DO 06/07/2017 03:13 P
[2017-06-07] MEDS ORDERED: FUROSEMIDE 40 MG/4 ML VIAL (J1940) IV ONE (14:45)
[2017-06-07] MEDS ORDERED: HEPARIN DRIP 25,000 UNITS in APPROPRIATE DILUENT 1 EA IV SCH (15:23)
[2017-06-07] MEDS ORDERED: ONDANSETRON 4MG/2ML VIAL (J2405) IV PRN (15:30)
[2017-06-07] MEDS ORDERED: HEPARIN SOD (PORCINE) 5000 UNITS/ML VIAL IV PRN (15:30)
--- NOTE | 2017-06-07 16:18 | PHACANCOPD ---
PHARMACY VANCOMYCIN DOSING Pt Demographics Demographics Patient Age:62 , Weight:89.090 , Gender: female Adjusted Body Weight Date: 06/07/17, Adjusted Body Weight: [62] Kg Vancomycin Vancomycin indication: cellulitis Vancomycin Target Ranges: 15-20 mcg/ml Vancomycin Load Y/N: No Load Dose Date Time Vancomycin Load Dose: Date: Time: Vancomycin Dose Date: 06/07/17. Current Vancomycin Dose: [1g IV q12h @18] Intermittent Dosing?: No Labs Labs Item Value Date Time White Blood Count 7.5 K/mm3 06/07/17 1148 Creatinine 0.64 MG/DL 06/07/17 1148 Creatinine Clearance Date:06/07/17. Creatinine Clearance: [87 ml/min using adjusted BW]. Pending Labs Vanco trough scheduled 06/09 @05:00 Assessment and Plan Maintaining Current Dose?: Yes Reason for dose change: No Dose Change Pharmacist Note Pharmacist Note Date: 06/07/17. Pharmacist note: pt has been admitted for b/l lower extremity cellulitis and acute DVT. Of note, she has only been on Eliquis 5mg daily instead of twice daily since 04/13/17. She does not have a hx of MRSA however she was last on vancomycin at our facility in April 2011. During that stay, after day #3 of vancomycin therapy nafcillin was added and the pt developed acute renal failure. I have continued her on vancomycin 1g IV q12h with a trough scheduled before the 4th dose. We will monitor SCr and adjust dosing as necessary. Gonzalo Ayala Pharm.D. Jun 07, 2017 16:18
--- NOTE | 2017-06-07 17:06 | HPEPDOC ---
Medical History and Physical Date of Admission Jun 07, 2017 at 15:23 History and Physical PRIMARY CARE PROVIDER: Dr. Oneill ATTENDING: Tri Mcdermott MD CHIEF COMPLAINT: Lower extremity edema HISTORY OF PRESENT ILLNESS: This is a 61-year-old female past history of severe COPD on 3 L home O2, questionable objective sleep apnea, diabetes, obesity, hypertension, history of CVA with no residual deficits, CHF, anemia, pulmonary nodules, chronic lower back pain, diabetic neuropathy who presents complaining of increased lower extremity edema. Patient was recently found to have a left DVT and was placed on eliquis. Patient states she has been compliant with her liquids and now complains of bilateral lower extremity edema. She denies any chest pain/shortness of breath/ palpitations. In the ED patient was found to have a new right lower extremity DVT while on Eliquis (although patient had been on 5mg daily instead of BID). States she also has a right lower extremity ulcer that's been persistent for many years after penicillin??. Area does appear to be more erythematous as well as swollen. She states she's had a colonoscopy in the past with polyps noted. She occasionally has bright red blood per rectum. No recent hematochezia or melanotic stools. PAST MEDICAL HISTORY: As per HPI PAST SURGICAL HISTORY: Cataracts, skin graft, partial hysterectomy SOCIAL HISTORY: Has smoked 3 packs per day since she was 20 however now is down to three quarters of a pack per day. No alcohol or illicit drug use. FAMILY HISTORY: Noncontributory ALLERGIES: Please see below. REVIEW OF SYSTEMS: HEENT: Denies sore throat/headache CARDIOVASCULAR: Denies chest pain/palpitations RESPIRATORY: No shortness of breath/cough GASTROINTESTINAL: denies nausea/vomiting GENITOURINARY: Denies dysuria/urinary urgency. MUSCULOSKELETAL: Denies myalgias/arthralgias NEUROLOGICAL: Denies any focal weakness Rest of ROS negative. HOME MEDICATIONS: Please see below. PHYSICAL EXAMINATION: Vitals: (see below) General: No acute distress, laying comfortably in bed. Lethargic however alert and oriented 3. HEENT: Moist mucous membranes. No nuchal rigidity. Neck: No JVD or lymphadenopathy Cardiac: RRR, No murmurs Pulm: Coarse crackles at the bases bilaterally. No wheezing or rhonchi. Abd: NT/ND + BS Ext: 1-2+ pitting edema BLE. Distal pulse intact. Small ulcer at the right dorsal aspect/above ankle. Minimal purulent drainage. Erythema noted. No cyanosis. Skin is warm and dry bilaterally. LABORATORY DATA: See below. IMAGING: Bilateral lower extremity ultrasound 06/07/17 IMPRESSION:There is a new right popliteal vein deep venous thrombosis. Chest x-ray06/07/17 IMPRESSION: Mild cardiomegaly and possible mild interstitial edema. Correlate clinically. MICROBIOLOGY: Please see below. ASSESSMENT/PLAN: 1. Acute right lower extremity DVT; recent left lower extremity DVT/ PE ? Failed Eliquis, although patient was prescribed this daily instead of twice a day and was on a suboptimal dose. We'll start patient on IV heparin drip. Will need Coumadin started 24 hours after heparin drip started. Echocardiogram pending. 2. Acute on chronic anemia- patient does have history of chronic microcytic anemia states she had outpatient colonoscopy with polyps noted. Occasionally has bright red blood per rectum. No recent hematochezia or melanotic stools. No active bleeding at this time. We'll transfuse 1 unit PRBC and monitor. 3. H/o COPD on 2.5-3L NC at home. Compensated. Continue home nebs. 5. Diabetes mellitus- hold by mouth meds. Sliding scale insulin for now. 6. Hypertension- controlled continue home meds 7. History of CVA with no residual deficits. 8. Chronic stable pulmonary nodules 9. Chronic lower back pain- hold narcotics for now as patient is drowsy. 10. Obesity 11. Lower extremity edema- we will diurese with Lasix IV twice a day. DVT prophylaxis- Heparin Patient was followed by Dr. Penelope Moore starting 06/08/17 at 7 AM. Vital Signs Vital Signs Date Time Temp Pulse Resp B/P (MAP) Pulse Ox O2 Delivery O2 Flow Rate FiO2 06/07/17 16:27 70 95 06/07/17 16:23 129/59 (82) 06/07/17 15:14 20 Room Air 2.0 06/07/17 10:57 97.3 Laboratory Data Labs 24H Laboratory Tests 2 06/07/17 11:48: Anion Gap 7L, Glomerular Filtration Rate > 60.0, Calcium Level 8.4L, Aspartate Amino Transf (AST/SGOT) 15, Alanine Aminotransferase (ALT/SGPT) 9L, Alkaline Phosphatase 89, Total Bilirubin 0.4, Direct Bilirubin 0.2, Total Protein 7.3, Albumin 3.0L, Albumin/Globulin Ratio 0.70L 06/07/17 12:32: Prothrombin Time 13.8, Prothromb Time International Ratio 1.05, Activated Partial Thromboplast Time 29.5 06/07/17 15:47: Activated Partial Thromboplast Time 29.9, Total Creatine Kinase 43, Creatine Kinase MB 1.4, Creatine Kinase MB Relative Index 3.25, Troponin I < 0.02 CBC/BMP Laboratory Tests 06/07/17 11:48 Red Blood Count 3.55 L, Mean Corpuscular Volume 75.2 L, Mean Corpuscular Hemoglobin 19.8 L, Mean Corpuscular Hemoglobin Concent 26.3 L, Red Cell Distribution Width 20.9 H Microbiology Microbiology 06/07/17 Blood Culture, Received Pending Home Medications Scheduled (Dexilant) 60 Mg Cap, 60 MG PO DAILY (Tab-A-Nancy) 1 Tab Tab, 1 TAB PO DAILY Apixaban Base (Eliquis) 5 Mg Tab, 5 MG PO DAILY Citalopram Hydrobromide (Citalopram Hydrobromide) 20 Mg Tab, 20 MG PO DAILY Diphenhydramine HCl (Benadryl Allergy) 25 Mg Cap, 25 MG PO QHS Fluticasone/Vilanterol (Breo Ellipta 100-25 Mcg/INH) 1 Inh Inh, 1 PUFF INH QHS Furosemide (Furosemide) 40 Mg Tab, 40 MG PO DAILY Glipizide (Glipizide) 10 Mg Tab, 10 MG PO DAILY Losartan Potassium (Losartan Potassium) 25 Mg Tab, 25 MG PO DAILY Metformin Hydrochloride (Metformin HCl) 500 Mg Tab, 500 MG PO BID Metoprolol Tartrate (Metoprolol Tartrate) 25 Mg Tab, 25 MG PO BID Mirtazapine (Mirtazapine) 30 Mg Tab, 30 MG PO QHS Polymyxin/Trimethoprim (Polymyxin B Sulfate/Trime Opth Solution) 1 Yoni Yoni, 1 DROP OU 6XD FILLED 06/02 FOR 7 DAYS Simvastatin (Simvastatin) 20 Mg Tab, 20 MG PO QHS Spironolactone (Spironolactone) 50 Mg Tab, 50 MG PO DAILY Scheduled PRN Acetaminophen (Acetaminophen) 325 Mg Tab, 650 MG PO Q4H PRN for PAIN Albuterol/Ipratropium (Ipratropium Rupert/Albut 0.5-2.5 (3) mg/3Ml) 1 Yoni Yoni, 1 YONI INH Q6H PRN for SHORTNESS OF BREATH Allergies Coded Allergies: Latex (Verified Allergy, Unknown, 02/07/13) Erythromycin (Verified Adverse Reaction, Mild, VOMITTING, 02/07/13) Bupropion (Verified Adverse Reaction, Unknown, "violent", 04/10/17) TRI MCDERMOTT MD Jun 07, 2017 17:06
[2017-06-07 17:50] VITALS: BP 129/63
[2017-06-07] MEDS: VANCOMYCIN HCL 1,000 MG, VIAL MATE ADAPTER 1 EACH in D5W 250 ML IV SCH (18:27)
[2017-06-07] MEDS ORDERED: ALBUTEROL SULFATE 2.5 MG/0.5 ML INH NEB SOLN INH PRN (18:45)
--- NOTE | 2017-06-07 19:33 | ECGEPIP ---
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
[2017-06-07] MEDS: IPRATROPIUM 0.5MG/ALBUTEROL 2.5MG INH SOL UD 3ML (DUONEB)(J7620) NEB SCH ×2 (20:04→23:42)
[2017-06-07 20:11] VITALS: BP 152/67
[2017-06-07] MEDS: METOPROLOL TART 25 MG TABLET PO SCH (21:03)
[2017-06-07] MEDS: SIMVASTATIN 20 MG TAB PO SCH (21:03)
[2017-06-07] MEDS: ACETAMINOPHEN TAB 650MG DOSE (2X325MG) PO PRN (21:04)
[2017-06-07] MEDS: diphenhydrAMINE 25 MG CAP PO SCH (21:04)
[2017-06-07] MEDS: MIRTAZAPINE 15 MG TAB PO SCH (21:04)
[2017-06-07] MEDS: POLYTRIM OPTH DROPS 10ML OU SCH (21:04)
[2017-06-07 21:37] LABS: MEAN CORPUSCULAR HEMOGLOBIN 21.4 pg (27.0-33.0); MEAN CORPUSCULAR HGB CONC 27.9 g/dl (32.0-36.5); MEAN CORPUSCULAR VOLUME 76.9 fl (80.0-96.0); RED CELL DISTRIBUTION WIDTH 20.7 % (11.5-14.5); WHITE BLOOD COUNT 7.4 K/mm3 (4.0-10.0)
[2017-06-07 23:59] VITALS: BP 140/90
[2017-06-08] VITALS (7 sets, daily range): BP systolic 114–164; BP diastolic 51–70
[2017-06-08] MEDS: ACETAMINOPHEN TAB 650MG DOSE (2X325MG) PO PRN ×3 (02:23→20:12)
[2017-06-08] MEDS: IPRATROPIUM 0.5MG/ALBUTEROL 2.5MG INH SOL UD 3ML (DUONEB)(J7620) NEB SCH ×6 (04:00→23:58)
[2017-06-08] MEDS: VANCOMYCIN HCL 1,000 MG, VIAL MATE ADAPTER 1 EACH in D5W 250 ML IV SCH (05:54)
[2017-06-08] MEDS: POLYTRIM OPTH DROPS 10ML OU SCH ×6 (06:06→20:09)
--- NOTE | 2017-06-08 07:07 | IPNPDOC ---
Subjective Date Seen The patient was seen on 06/08/17. Subjective Chief Complaint/HPI The patient is a 62-year-old female admitted with a reason for visit of Acute Deep Venous Thrombosis. Events since last encounter No new complaints this am . Leg swelling unchanged, no fever or chills, no chest pain or cough , does have chronic SOB which is not worse from baseline. Objective Physical Examination General Exam: Positive: Alert, Cooperative, No Acute Distress Eye Exam: Positive: PERRLA, Conjunctiva & lids normal, EOMI, Negative: Sclera icteric ENT Exam: Positive: Atraumatic, Mucous membr. moist/pink, Pharynx Normal Neck Exam: Positive: Supple, Negative: JVD, thyromegaly Chest Exam: Positive: Diminished Heart Exam: Positive: Rate Normal, Regular Rhythm, Normal S1, Normal S2, Negative: Murmurs, Rubs Abdomen Exam: Positive: Normal bowel sounds, Soft, Negative: Tenderness, Hepatospenomegaly Extremity Exam: Positive: Edema Skin Exam: Positive: Lesion Assessment /Plan Problems (1) Acute deep venous thrombosis Status: Acute Problem Text: recurrent Had Left DVT in april 2017 was on eliquis after that but on once a day Now Has right DVT on heparin infusion will change to levenox and start coumadin (2) Diastolic CHF Status: Chronic Problem Text: Acute exacerbation on chronic diastolic chf will continue with IV lasix. (3) COPD (chronic obstructive pulmonary disease) Status: Chronic (4) Chronic respiratory failure with hypoxia Status: Chronic Problem Text: on 3 L home oxygen (5) Diabetes Status: Chronic (6) HTN (hypertension) Status: Chronic (7) Pulmonary nodule Status: Chronic (8) Chronic low back pain Status: Chronic (9) Diabetic neuropathy Status: Chronic (10) Anemia Status: Acute Problem Text: acute on chronic iron deficiency had several egd and colonoscopy in past showed hiatal hernia, diverticulosis , hemorroids. will check stool for occult blood. (11) Hypercholesteremia Status: Chronic (12) Obesity (BMI 30-39.9) Status: Chronic (13) Pulmonary embolism Status: Acute Problem Text: in April 2017 patient was on eliquis but once a day (14) Venous stasis ulcer Plan/VTE VTE Prophylaxis Ordered?: Yes VS, I&O, 24H, Fishbone Vital Signs/I&O Vital Signs Date Time Temp Pulse Resp B/P (MAP) Pulse Ox O2 Delivery O2 Flow Rate FiO2 06/08/17 04:45 97.7 75 20 164/69 (100) 95 Nasal Cannula 3.0 I&O- Last 24 Hours up to 6 AM 06/08/17 06:00 Intake Total 1106 ml Output Total 1750 ml Balance -644 ml Laboratory Data 24H LABS Laboratory Tests 2 06/07/17 11:48: Anion Gap 7L, Glomerular Filtration Rate > 60.0, Calcium Level 8.4L, Aspartate Amino Transf (AST/SGOT) 15, Alanine Aminotransferase (ALT/SGPT) 9L, Alkaline Phosphatase 89, Total Bilirubin 0.4, Direct Bilirubin 0.2, Total Protein 7.3, Albumin 3.0L, Albumin/Globulin Ratio 0.70L 06/07/17 12:32: Prothrombin Time 13.8, Prothromb Time International Ratio 1.05, Activated Partial Thromboplast Time 29.5 06/07/17 15:47: Activated Partial Thromboplast Time 29.9, Total Creatine Kinase 43, Creatine Kinase MB 1.4, Creatine Kinase MB Relative Index 3.25, Troponin I < 0.02 06/07/17 18:36: Bedside Glucose (Misc Panel) 106 06/07/17 23:57: Activated Partial Thromboplast Time 76.9H, Total Creatine Kinase 41, Creatine Kinase MB 1.4, Creatine Kinase MB Relative Index 3.41, Troponin I < 0.02 06/08/17 05:30: Activated Partial Thromboplast Time 68.9H, Total Creatine Kinase 37, Creatine Kinase MB 1.1, Creatine Kinase MB Relative Index 2.97, Troponin I < 0.02 CBC/BMP Laboratory Tests 06/07/17 11:48 Red Blood Count 3.55 L, Mean Corpuscular Volume 75.2 L, Mean Corpuscular Hemoglobin 19.8 L, Mean Corpuscular Hemoglobin Concent 26.3 L, Red Cell Distribution Width 20.9 H 06/07/17 21:17 Red Blood Count 3.67 L, Mean Corpuscular Volume 76.9 L, Mean Corpuscular Hemoglobin 21.4 L, Mean Corpuscular Hemoglobin Concent 27.9 L, Red Cell Distribution Width 20.7 H Microbiology Microbiology 06/07/17 Blood Culture, Received Pending 06/07/17 Wound Culture, Received Pending TEETEE ADAN MD Jun 08, 2017 07:07
[2017-06-08] MEDS: PANTOPRAZOLE 40MG INJ (PROTONIX) (C9113) IV SCH (08:37)
[2017-06-08] MEDS: FUROSEMIDE 40 MG/4 ML VIAL (J1940) IV SCH ×3 (08:38→22:56)
[2017-06-08] MEDS: ENOXAPARIN 100MG/1ML SYRINGE (J1650) SC SCH ×2 (08:38→20:10)
[2017-06-08] MEDS: SPIRONOLACTONE 50 MG TAB PO SCH (08:39)
[2017-06-08] MEDS: LOSARTAN 25 MG TAB PO SCH (08:39)
[2017-06-08] MEDS: CitaloPRAM (CeleXA) 20 MG TAB PO SCH (08:39)
[2017-06-08] MEDS: METOPROLOL TART 25 MG TABLET PO SCH ×2 (08:39→20:09)
[2017-06-08] MEDS ORDERED: FUROSEMIDE 40 MG/4 ML VIAL (J1940) IV SCH (09:00)
[2017-06-08] MEDS ORDERED: GLUCOSE 4 GM CHEW TABLET PO PRN (15:30)
[2017-06-08] MEDS ORDERED: DEXTROSE 50% 50 ML SYRINGE IV PRN (15:30)
[2017-06-08] MEDS ORDERED: GLUCAGON FOR INJ 1 MG VIAL (J1610) SC PRN (15:30)
[2017-06-08] MEDS: WARFARIN SOD 5 MG TAB PO SCH (17:28)
[2017-06-08] MEDS: HumaLOG INSULIN (NovoLOG) PER UNIT SC SCH ×2 (17:29→20:20)
[2017-06-08] MEDS: diphenhydrAMINE 25 MG CAP PO SCH (20:08)
[2017-06-08] MEDS: SIMVASTATIN 20 MG TAB PO SCH (20:08)
[2017-06-08] MEDS: MIRTAZAPINE 15 MG TAB PO SCH (20:08)
[2017-06-09] VITALS (7 sets, daily range): BP systolic 123–164; BP diastolic 58–71
[2017-06-09] MEDS: IPRATROPIUM 0.5MG/ALBUTEROL 2.5MG INH SOL UD 3ML (DUONEB)(J7620) NEB SCH ×6 (03:52→23:41)
[2017-06-09 05:42] LABS: INR 1.11
[2017-06-09 05:43] LABS: MEAN CORPUSCULAR HEMOGLOBIN 21.5 pg (27.0-33.0); MEAN CORPUSCULAR VOLUME 76.7 fl (80.0-96.0); RED CELL DISTRIBUTION WIDTH 21.1 % (11.5-14.5); WHITE BLOOD COUNT 4.7 K/mm3 (4.0-10.0)
[2017-06-09 06:01] LABS: ALBUMIN 2.5 GM/DL (3.2-5.2); ALBUMIN/GLOBULIN RATIO 0.57 (1.00-1.93); ALKALINE PHOSPHATASE 73 U/L (45-117); ALT/SGPT 9 U/L (12-78); ANION GAP 5 MEQ/L (8-16); AST/SGOT 14 U/L (15-37); BILIRUBIN,TOTAL 0.3 MG/DL (0.2-1.0); BLOOD UREA NITROGEN 7 MG/DL (7-18); CALCIUM LEVEL 8.1 MG/DL (8.8-10.2); CARBON DIOXIDE LEVEL 35 MEQ/L (21-32); CHLORIDE LEVEL 103 MEQ/L (98-107); CREATININE FOR GFR 0.67 MG/DL (0.55-1.02); GLOMERULAR FILTRATION RATE > 60.0 (>45); GLUCOSE, FASTING 108 MG/DL (80-110); POTASSIUM SERUM 3.6 MEQ/L (3.5-5.1); SODIUM LEVEL 143 MEQ/L (136-145); TOTAL PROTEIN 6.9 GM/DL (6.4-8.2)
[2017-06-09] MEDS: POLYTRIM OPTH DROPS 10ML OU SCH ×6 (06:25→21:07)
[2017-06-09] MEDS: FUROSEMIDE 40 MG/4 ML VIAL (J1940) IV SCH ×3 (06:25→21:06)
[2017-06-09] MEDS: HumaLOG INSULIN (NovoLOG) PER UNIT SC SCH ×4 (07:30→21:00)
[2017-06-09] MEDS: METOPROLOL TART 25 MG TABLET PO SCH ×2 (08:03→21:07)
[2017-06-09] MEDS: LOSARTAN 25 MG TAB PO SCH (08:03)
[2017-06-09] MEDS: ENOXAPARIN 100MG/1ML SYRINGE (J1650) SC SCH ×2 (08:03→21:07)
[2017-06-09] MEDS: glipiZIDE 10 MG TAB PO SCH (08:03)
[2017-06-09] MEDS: SPIRONOLACTONE 50 MG TAB PO SCH (08:03)
[2017-06-09] MEDS: CitaloPRAM (CeleXA) 20 MG TAB PO SCH (08:03)
[2017-06-09] MEDS: PANTOPRAZOLE 40MG INJ (PROTONIX) (C9113) IV SCH (08:04)
[2017-06-09] MEDS: ACETAMINOPHEN TAB 650MG DOSE (2X325MG) PO PRN (17:03)
[2017-06-09] MEDS: WARFARIN SOD 5 MG TAB PO SCH (17:16)
--- NOTE | 2017-06-09 17:25 | IPNPDOC ---
Date Seen The patient was seen on 06/09/17. Progress Note Hospitalist Progress Note Subjective: The patient denies any blood in her urine or stool, or anywhere else for that matter. Objective: Physical Exam: Vitals: Vital Sign - Last 24 Hours 06/08/17 06/08/17 06/08/17 06/08/17 19:46 19:57 20:09 20:22 Temp 97.9 Pulse 87 87 Resp 20 B/P (MAP) 131/70 (90) 131/70 Pulse Ox 97 O2 Delivery Nasal Cannula Nasal Cannula Nasal Cannula O2 Flow Rate 2.0 3.0 2.0 06/08/17 06/08/17 06/09/17 06/09/17 22:57 23:59 04:53 06:59 Temp 99.9 98.9 100.1 Pulse 83 82 85 89 Resp 20 24 24 B/P (MAP) 134/55 (81) 128/58 (81) 123/62 (82) 151/62 (91) Pulse Ox 97 95 91 O2 Delivery Nasal Cannula Nasal Cannula Nasal Cannula O2 Flow Rate 2.0 2.0 2.0 06/09/17 06/09/17 06/09/17 06/09/17 07:56 08:00 08:03 08:03 Temp 97.5 Pulse 96 92 Resp 22 B/P (MAP) 151/69 (96) 152/62 Pulse Ox 90 O2 Delivery Nasal Cannula Nasal Cannula O2 Flow Rate 2.0 2.0 06/09/17 06/09/17 06/09/17 11:38 15:49 16:18 Temp 97.5 98.9 Pulse 68 83 Resp 22 20 B/P (MAP) 164/71 (102) 132/60 (84) Pulse Ox 98 92 O2 Delivery Nasal Cannula Nasal Cannula Nasal Cannula O2 Flow Rate 2.0 2.0 2.0 General: Awake, alert, no acute distress HEENT: Normocephalic, atraumatic, moist mucous membranes CV: Regular rate and rhythm Lungs: Clear to auscultation bilaterally Abd: Soft, nontender, nondistended Extremities: Intact pedal pulses Neuro: Alert and oriented 3, normal speech Psych: Normal mood and affect Labs and Imaging: Laboratory Tests 06/09/17 04:58 Red Blood Count 3.19 L, Mean Corpuscular Volume 76.7 L, Mean Corpuscular Hemoglobin 21.5 L, Mean Corpuscular Hemoglobin Concent 28.0 L, Red Cell Distribution Width 21.1 H, Calcium Level 8.1 L, Aspartate Amino Transf (AST/SGOT ) 14 L, Alanine Aminotransferase (ALT/SGPT) 9 L, Alkaline Phosphatase 73, Total Bilirubin 0.3, Total Protein 6.9, Albumin 2.5 L Assessment and Plan: 61-year-old female with COPD on 3 L home O2, possible sleep apnea, diabetes mellitus type 2 with neuropathy, obesity, hypertension, history of CVA, chronic anemia, chronic low back pain, chronic CHF, recent dx DVT/PEs who presents for increasing bilateral lower extremity edema. She has been found to have a new DVT. 1. New DVT with recent DVT/PE: The patient was recently diagnosed at the beginning of April with a DVT and pulmonary emboli. She has been on eliquis as an outpatient, but it appears that she was not on adequate dosing. Bilateral lower extremity Doppler on this admission shows a new right popliteal DVT. At this point, she is being bridged to Coumadin. Lovenox was started on the morning of June 08 and Coumadin was started that evening. She will need to have overlap with the Lovenox and Coumadin until at least the morning of June 13. We will follow daily INRs. Patient denies any family history of blood clots or prior personal clots. She also denies any recent surgeries or long plane rides/ car rides. Upon discharge, she would benefit from outpatient follow-up with the banquet steward to further investigate any underlying clotting disorder. 2. Increasing bilateral lower extremity edema, hx of CHF: Certainly, part of this is secondary to her new DVT, a chest x-ray also shows interstitial edema. In light of her known CHF, an updated echocardiogram has been ordered. We are currently holding home oral Lasix and diuresing with Lasix IV every 8 hours. Continue home spironolactone. 3. Acute on chronic anemia: The patient's baseline hemoglobin appears to be in the eights. Upon arrival, her hemoglobin was 7.1. She received 1 unit of PRBCs and her hemoglobin improved to 7.9. This morning, it had dropped to 6.9, and she has now received another unit of blood. We'll continue to monitor her hemoglobin. She currently denies any source of bleeding. She does tell me that she has had extensive outpatient workup with Dr. Gill for the anemia, including EGD, colonoscopy, and capsule endoscopy all of which were completed approximately 6 months ago. Per the patient report, these were unremarkable. Upon my review of the EMR, I do not see reports to confirm this, but I do see colonoscopy and EGD from October 2014, which are indeed unremarkable for source of bleed. As noted above, the patient would benefit from outpatient follow-up with the banquet steward, to further investigate her anemia. Fecal occult blood on this admission was negative 4. Right lower extremity ulcer: The patient states that she has chronically had difficulty with a reappearing wound care ever since some sort of issue with penicillin many years earlier. She tells me that it was healed over until she started to have increased swelling in her legs, and that is when it began to open up. At this time, it does not appear to be actively infected. There are blood and wound cultures pending. She is afebrile with a normal white count. 5. COPD on 3 L home O2: Continue duo nebs. The patient uses Breo Ellipta at home , which we do not have on formulary. We will substitute Advair while in-house. 6. Diabetes mellitus type 2 with neuropathy: Currently holding home metformin. Continue glipizide, as well as sliding scale insulin while in house. 7. Hypertension: Continue home beta mariana and ARB. 8. History of CVA: The patient does not have any residual effects. Not currently on aspirin as she is being anticoagulated. Continue statin and control blood pressure. DVT prophylaxis: Treatment dose Lovenox bridging to Coumadin Dispo: pending stabilization of her hemoglobin as well as therapeutic INR; will need outpatient follow-up with hematology for anemia and multiple VTE VS, I&O, 24H, Fishbone Vital Signs/I&O Vital Signs Date Time Temp Pulse Resp B/P (MAP) Pulse Ox O2 Delivery O2 Flow Rate FiO2 06/09/17 16:18 98.9 83 20 132/60 (84) 92 Nasal Cannula 2.0 I&O- Last 24 Hours up to 6 AM 06/09/17 05:59 Intake Total 1188 ml Output Total 4900 ml Balance -3712 ml Laboratory Data 24H LABS Laboratory Tests 2 06/08/17 20:20: Bedside Glucose (Misc Panel) 133H 06/09/17 04:58: Prothrombin Time 14.5, Prothromb Time International Ratio 1.11, Anion Gap 5L, Glomerular Filtration Rate > 60.0, Blood Urea Nitrogen 7, Creatinine 0.67, Sodium Level 143, Potassium Level 3.6, Chloride Level 103, Carbon Dioxide Level 35H, Calcium Level 8.1L, Aspartate Amino Transf (AST/SGOT) 14L, Alanine Aminotransferase (ALT/SGPT) 9L, Alkaline Phosphatase 73, Total Bilirubin 0.3, Total Protein 6.9, Albumin 2.5L, Albumin/Globulin Ratio 0.57L 06/09/17 11:40: Bedside Glucose (Misc Panel) 93 06/09/17 16:57: Bedside Glucose (Misc Panel) 120H CBC/BMP Laboratory Tests 06/09/17 04:58 Red Blood Count 3.19 L, Mean Corpuscular Volume 76.7 L, Mean Corpuscular Hemoglobin 21.5 L, Mean Corpuscular Hemoglobin Concent 28.0 L, Red Cell Distribution Width 21.1 H, Calcium Level 8.1 L, Aspartate Amino Transf (AST/SGOT ) 14 L, Alanine Aminotransferase (ALT/SGPT) 9 L, Alkaline Phosphatase 73, Total Bilirubin 0.3, Total Protein 6.9, Albumin 2.5 L Microbiology Microbiology 06/07/17 Blood Culture - Preliminary, Resulted No Growth after 48 hours. All Specime... 06/08/17 Stool Occult Blood (JOSE A) - Final, Complete 06/07/17 Wound Culture, Received Pending MATT KHANNA Jun 09, 2017 17:25
[2017-06-09] MEDS: ADVAIR HFA 115/21MCG INHALER INH SCH (20:26)
[2017-06-09] MEDS: MIRTAZAPINE 15 MG TAB PO SCH (21:06)
[2017-06-09] MEDS: SIMVASTATIN 20 MG TAB PO SCH (21:07)
[2017-06-09] MEDS: diphenhydrAMINE 25 MG CAP PO SCH (21:07)
--- NOTE | 2017-06-09 21:18 | ECHO ---
DATE OF PROCEDURE: 06/09/2017 REFERRING PHYSICIAN: Penelope Moore MD, Patrick Mcdermott MD INDICATION: Congestive heart failure. HEIGHT: 152 cm WEIGHT: 90 kg DIMENSIONS: IVS: 1.1 LV: 4.3 LVPW: 1.0 LA: 4.5 Aorta: 2.4 FINDINGS: The study is of acceptable technical quality. Left ventricle is of normal size and hyperdynamic contractility with estimated left ventricle ejection fraction around 70%. I do not appreciate any segmental wall motion abnormalities. Right ventricle is dilated and hypokinetic. Both atria are at least moderately enlarged. Aortic valve is tricuspid. It is heavily sclerotic and in some views I cannot rule out presence of even small vegetations of the aortic valve. There are also heavy degenerative abnormalities of mitral valve with very prominent mitral annular calcifications. Leaflet separation is preserved. Tricuspid and pulmonic valves appear normal. No pericardial effusion is noted. Inferior vena cava is markedly dilated and there is no appreciable collapse with respiration indicative of very high central venous pressure. Aortic root is normal. Aortic arch and abdominal aorta were not seen. Doppler interrogation of aortic valve reveals no insufficiency and mild stenosis with mean gradient 14 mmHg. There is trivial mitral insufficiency and no significant erlinda stenosis. There is approximately moderate tricuspid insufficiency. Calculated pulmonary artery pressure is at least in high 80s, which would correspond to severe pulmonary hypertension. Pulmonic valve exhibits mild insufficiency. Mitral inflow pattern and tissue Doppler imaging of mitral annulus reveal grade 2 diastolic dysfunction (tissue Doppler velocities of septal and lateral mitral annulus are 6.0 and 6.8 cm/s). CONCLUSIONS: 1. Study is of acceptable technical quality. 2. Normal LV size with hyperdynamic LV systolic function and grade 2 diastolic dysfunction. 3. Severe pulmonary hypertension. 4. Dilated hypokinetic right ventricle. 5. Moderate tricuspid insufficiency. 6. Very high central venous pressure. 7. Mild aortic stenosis, cannot completely rule out presence of small vegetation on mitral valve. COMMENTS: Subacute bacterial endocarditis (SBE) prophylaxis is not recommended.
[2017-06-10] MEDS: IPRATROPIUM 0.5MG/ALBUTEROL 2.5MG INH SOL UD 3ML (DUONEB)(J7620) NEB SCH ×6 (03:37→23:19)
[2017-06-10 04:19] VITALS: BP 162/64
[2017-06-10] MEDS: ACETAMINOPHEN TAB 650MG DOSE (2X325MG) PO PRN (04:35)
[2017-06-10] MEDS: FUROSEMIDE 40 MG/4 ML VIAL (J1940) IV SCH ×2 (05:18→18:34)
[2017-06-10] MEDS: POLYTRIM OPTH DROPS 10ML OU SCH ×4 (05:18→14:18)
[2017-06-10 06:15] LABS: ANION GAP 7 MEQ/L (8-16); BLOOD UREA NITROGEN 7 MG/DL (7-18); CALCIUM LEVEL 8.3 MG/DL (8.8-10.2); CARBON DIOXIDE LEVEL 36 MEQ/L (21-32); CHLORIDE LEVEL 101 MEQ/L (98-107); CREATININE FOR GFR 0.54 MG/DL (0.55-1.02); GLOMERULAR FILTRATION RATE > 60.0 (>45); GLUCOSE, FASTING 110 MG/DL (80-110); MAGNESIUM LEVEL 1.1 MG/DL (1.8-2.4); POTASSIUM SERUM 3.8 MEQ/L (3.5-5.1); SODIUM LEVEL 144 MEQ/L (136-145)
[2017-06-10 06:16] LABS: BASO % 0.5 % (0.0-1.0); EOS # 0.2 K/mm3 (0.0-0.50); EOS % 3.3 % (0.0-3.0); LARGE UNSTAINED CELL # 0.1 K/mm3 (0.0-0.4); LARGE UNSTAINED CELL % 1.8 % (0.0-4.0); LYMPH # 1.4 K/mm3 (1.5-4.5); LYMPH % 23.3 % (24.0-44.0); MEAN CORPUSCULAR HEMOGLOBIN 22.2 pg (27.0-33.0); MEAN CORPUSCULAR HGB CONC 28.5 g/dl (32.0-36.5); MEAN CORPUSCULAR VOLUME 77.8 fl (80.0-96.0); MONO # 0.4 K/mm3 (0.0-0.8); MONO % 6.6 % (0.0-5.0); NEUTROPHILS # 3.7 K/mm3 (1.8-7.7); NEUTROPHILS % 64.5 % (36.0-66.0); PLATELET COUNT, AUTOMATED 225 k/mm3 (150-450); WHITE BLOOD COUNT 5.7 K/mm3 (4.0-10.0)
[2017-06-10 06:17] LABS: INR 1.23
[2017-06-10] MEDS: ADVAIR HFA 115/21MCG INHALER INH SCH ×2 (07:22→19:35)
[2017-06-10] MEDS: glipiZIDE 10 MG TAB PO SCH (07:43)
[2017-06-10] MEDS: MAG SULF 1GM/100ML (MAG RUN) 1 GM in APPROPRIATE DILUENT 1 EA IV SCH ×2 (07:43→09:04)
[2017-06-10] MEDS: ENOXAPARIN 100MG/1ML SYRINGE (J1650) SC SCH ×2 (07:44→20:40)
[2017-06-10] MEDS: HumaLOG INSULIN (NovoLOG) PER UNIT SC SCH ×4 (07:44→20:41)
[2017-06-10 08:00] VITALS: BP 159/75
[2017-06-10] MEDS ORDERED: SLF 3 ML SYR IV PRN (09:00)
[2017-06-10] MEDS: PANTOPRAZOLE 40MG INJ (PROTONIX) (C9113) IV SCH (09:02)
[2017-06-10] MEDS: SPIRONOLACTONE 50 MG TAB PO SCH (09:02)
[2017-06-10] MEDS: METOPROLOL TART 25 MG TABLET PO SCH ×2 (09:03→20:42)
[2017-06-10] MEDS: LOSARTAN 25 MG TAB PO SCH (09:03)
[2017-06-10] MEDS: CitaloPRAM (CeleXA) 20 MG TAB PO SCH (09:03)
[2017-06-10 12:00] VITALS: BP 147/64
--- NOTE | 2017-06-10 12:02 | IPNPDOC ---
Date Seen The patient was seen on 06/10/17. Progress Note Hospitalist Progress Note Subjective: The patient continues to deny any bleeding; she and her daughter are requesting that she be checked for hepatitis Objective: Physical Exam: Vitals: Vital Sign - Last 24 Hours 06/09/17 06/09/17 06/09/17 06/09/17 15:49 16:18 19:43 20:08 Temp 98.9 98.9 Pulse 83 82 Resp 20 20 B/P (MAP) 132/60 (84) 127/58 (81) Pulse Ox 92 96 O2 Delivery Nasal Cannula Nasal Cannula Nasal Cannula Nasal Cannula O2 Flow Rate 2.0 2.0 2.0 2.0 06/09/17 06/09/17 06/09/17 06/10/17 20:30 21:07 23:09 04:19 Temp 99.2 98.6 Pulse 82 74 84 Resp 20 22 B/P (MAP) 127/58 142/67 (92) 162/64 (96) Pulse Ox 95 92 O2 Delivery Nasal Cannula Nasal Cannula Nasal Cannula O2 Flow Rate 3.0 2.0 2.0 06/10/17 06/10/17 06/10/17 06/10/17 07:29 07:40 08:00 09:03 Temp 98.0 Pulse 84 Resp 18 B/P (MAP) 159/75 (103) 159/75 Pulse Ox 94 O2 Delivery Nasal Cannula Nasal Cannula Nasal Cannula O2 Flow Rate 3.0 2.0 2.0 06/10/17 09:03 Pulse 84 B/P (MAP) 159/75 General: Awake, alert, no acute distress HEENT: Normocephalic, atraumatic, moist mucous membranes CV: Regular rate and rhythm Lungs: Clear to auscultation bilaterally Abd: Soft, nontender, nondistended Extremities: Intact pedal pulses, no pedal edema Neuro: Alert and oriented 3, normal speech Psych: Normal mood and affect Labs and Imaging: Laboratory Tests 06/10/17 05:18 Red Blood Count 3.50 L, Mean Corpuscular Volume 77.8 L, Mean Corpuscular Hemoglobin 22.2 L, Mean Corpuscular Hemoglobin Concent 28.5 L, Red Cell Distribution Width 21.0 H, Neutrophils (%) (Auto) 64.5, Lymphocytes (%) (Auto) 23.3 L, Monocytes (%) (Auto) 6.6 H, Eosinophils (%) (Auto) 3.3 H, Basophils (%) (Auto) 0.5, Neutrophils # (Auto) 3.7, Lymphocytes # (Auto) 1.4 L, Monocytes # ( Auto) 0.4, Eosinophils # (Auto) 0.2, Basophils # (Auto) 0.0, Calcium Level 8.3 L Assessment and Plan: 61-year-old female with COPD on 3 L home O2, possible sleep apnea, diabetes mellitus type 2 with neuropathy, obesity, hypertension, history of CVA, chronic anemia, chronic low back pain, chronic CHF, recent dx DVT/PEs who presents for increasing bilateral lower extremity edema. She has been found to have a new DVT. 1. New DVT with recent DVT/PE: The patient was recently diagnosed at the beginning of April with a DVT and pulmonary emboli. She has been on eliquis as an outpatient, but it appears that she was not on adequate dosing. Bilateral lower extremity Doppler on this admission shows a new right popliteal DVT. At this point, she is being bridged to Coumadin. Lovenox was started on the morning of June 08 and Coumadin was started that evening. She will need to have overlap with the Lovenox and Coumadin until at least the morning of June 13. We will follow daily INRs. Patient denies any family history of blood clots or prior personal clots. She also denies any recent surgeries or long plane rides/ car rides. Upon discharge, she would benefit from outpatient follow-up with the garment folder to further investigate any underlying clotting disorder. 2. Increasing bilateral lower extremity edema, hx of chronic dCHF now with acute exacerbation: Certainly, part of this is secondary to her new DVT, a chest x-ray also shows interstitial edema. In light of her known CHF, an updated echocardiogram has been ordered and shows preserved EF but grade 2 diastolic dysfunction and severe pHTN. We are currently holding home oral Lasix and diuresing with Lasix IV every 8 hours, which we will cut back to BID. Continue home spironolactone. 3. Acute on chronic anemia: The patient's baseline hemoglobin appears to be in the eights. Upon arrival, her hemoglobin was 7.1. She received 1 unit of PRBCs and her hemoglobin improved to 7.9. The next morning, it had dropped to 6.9, and she has now received another unit of blood. We'll continue to monitor her hemoglobin. She currently denies any source of bleeding. She does tell me that she has had extensive outpatient workup with Dr. Gill for the anemia, including EGD, colonoscopy, and capsule endoscopy all of which were completed approximately 6 months ago. Per the patient report, these were unremarkable. Upon my review of the EMR, I do not see reports to confirm this, but I do see colonoscopy and EGD from October 2014, which are indeed unremarkable for source of bleed. As noted above, the patient would benefit from outpatient follow-up with the garment folder, to further investigate her anemia. Fecal occult blood on this admission was negative 4. Right lower extremity ulcer: The patient states that she has chronically had difficulty with a reappearing wound care ever since some sort of issue with penicillin many years earlier. She tells me that it was healed over until she started to have increased swelling in her legs, and that is when it began to open up. At this time, it does not appear to be actively infected. There are blood and wound cultures pending. She is afebrile with a normal white count. 5. COPD on 3 L home O2: Continue duo nebs. The patient uses Breo Ellipta at home , which we do not have on formulary. We have substituted Advair while in-house. 6. Diabetes mellitus type 2 with neuropathy: Currently holding home metformin. Continue glipizide, as well as sliding scale insulin while in house. 7. Hypertension: Continue home beta mariana and ARB. 8. History of CVA: The patient does not have any residual effects. Not currently on aspirin as she is being anticoagulated. Continue statin and control blood pressure. 9. Hypomagnesemia: replacing; recheck mag this afternoon DVT prophylaxis: Treatment dose Lovenox bridging to Coumadin Dispo: pending stabilization of her hemoglobin as well as therapeutic INR; will need outpatient follow-up with hematology for anemia and multiple VTE VS, I&O, 24H, Fishbone Vital Signs/I&O Vital Signs Date Time Temp Pulse Resp B/P (MAP) Pulse Ox O2 Delivery O2 Flow Rate FiO2 06/10/17 09:03 84 159/75 06/10/17 08:00 98.0 18 94 Nasal Cannula 2.0 I&O- Last 24 Hours up to 6 AM 06/10/17 05:59 Intake Total 1540 ml Output Total 5350 ml Balance -3810 ml Laboratory Data 24H LABS Laboratory Tests 2 06/09/17 16:57: Bedside Glucose (Misc Panel) 120H 06/09/17 20:24: Bedside Glucose (Misc Panel) 225H 06/10/17 05:18: White Blood Count 5.7, Red Blood Count 3.50L, Hemoglobin 7.8L, Hematocrit 27.2L , Mean Corpuscular Volume 77.8L, Mean Corpuscular Hemoglobin 22.2L, Mean Corpuscular Hemoglobin Concent 28.5L, Red Cell Distribution Width 21.0H, Platelet Count 225, Neutrophils (%) (Auto) 64.5, Lymphocytes (%) (Auto) 23.3L, Monocytes (%) (Auto) 6.6H, Eosinophils (%) (Auto) 3.3H, Basophils (%) (Auto) 0.5 , Neutrophils # (Auto) 3.7, Lymphocytes # (Auto) 1.4L, Monocytes # (Auto) 0.4, Eosinophils # (Auto) 0.2, Basophils # (Auto) 0.0, Large Unclassified Cells % 1.8 , Large Unclassified Cells # 0.1, Prothrombin Time 15.7H, Prothromb Time International Ratio 1.23, Anion Gap 7L, Glomerular Filtration Rate > 60.0, Blood Urea Nitrogen 7, Creatinine 0.54L, Sodium Level 144, Potassium Level 3.8, Chloride Level 101, Carbon Dioxide Level 36H, Calcium Level 8.3L, Magnesium Level 1.1L 06/10/17 11:40: Bedside Glucose (Misc Panel) 108 CBC/BMP Laboratory Tests 06/10/17 05:18 Red Blood Count 3.50 L, Mean Corpuscular Volume 77.8 L, Mean Corpuscular Hemoglobin 22.2 L, Mean Corpuscular Hemoglobin Concent 28.5 L, Red Cell Distribution Width 21.0 H, Neutrophils (%) (Auto) 64.5, Lymphocytes (%) (Auto) 23.3 L, Monocytes (%) (Auto) 6.6 H, Eosinophils (%) (Auto) 3.3 H, Basophils (%) (Auto) 0.5, Neutrophils # (Auto) 3.7, Lymphocytes # (Auto) 1.4 L, Monocytes # ( Auto) 0.4, Eosinophils # (Auto) 0.2, Basophils # (Auto) 0.0, Calcium Level 8.3 L Microbiology Microbiology 06/07/17 Blood Culture - Preliminary, Resulted No Growth after 48 hours. All Specime... 06/08/17 Stool Occult Blood (JOSE A) - Final, Complete 06/07/17 Wound Culture, Received Pending MATT KHANNA Jun 10, 2017 12:02
[2017-06-10] MEDS: SLF 3 ML SYR IV SCH ×2 (14:18→20:39)
[2017-06-10 16:00] VITALS: BP 142/66
[2017-06-10] MEDS: WARFARIN SOD 5 MG TAB PO SCH (17:14)
[2017-06-10 20:00] VITALS: BP 123/58
[2017-06-10] MEDS: diphenhydrAMINE 25 MG CAP PO SCH (20:40)
[2017-06-10] MEDS: SIMVASTATIN 20 MG TAB PO SCH (20:41)
[2017-06-10] MEDS: MIRTAZAPINE 15 MG TAB PO SCH (20:41)
[2017-06-11] VITALS: BP 149/67
[2017-06-11] MEDS: traMADol 50 MG TAB PO PRN (00:15)
[2017-06-11] MEDS: IPRATROPIUM 0.5MG/ALBUTEROL 2.5MG INH SOL UD 3ML (DUONEB)(J7620) NEB SCH ×6 (03:23→23:10)
[2017-06-11 04:00] VITALS: BP 175/71
[2017-06-11] MEDS: SLF 3 ML SYR IV SCH ×3 (05:41→21:17)
[2017-06-11 05:56] LABS: BASO % 0.5 % (0.0-1.0); EOS # 0.2 K/mm3 (0.0-0.50); EOS % 3.3 % (0.0-3.0); INR 1.49; LARGE UNSTAINED CELL # 0.2 K/mm3 (0.0-0.4); LARGE UNSTAINED CELL % 2.2 % (0.0-4.0); LYMPH # 2.1 K/mm3 (1.5-4.5); LYMPH % 28.3 % (24.0-44.0); MEAN CORPUSCULAR HEMOGLOBIN 21.9 pg (27.0-33.0); MEAN CORPUSCULAR HGB CONC 28.4 g/dl (32.0-36.5); MONO # 0.4 K/mm3 (0.0-0.8); MONO % 6.3 % (0.0-5.0); NEUTROPHILS # 4.1 K/mm3 (1.8-7.7); NEUTROPHILS % 59.4 % (36.0-66.0); PLATELET COUNT, AUTOMATED 233 k/mm3 (150-450); WHITE BLOOD COUNT 6.9 K/mm3 (4.0-10.0)
[2017-06-11 06:05] LABS: ADD MORPHOLOGY? YES
[2017-06-11 06:24] LABS: ANION GAP 7 MEQ/L (8-16); BLOOD UREA NITROGEN 7 MG/DL (7-18); CALCIUM LEVEL 8.4 MG/DL (8.8-10.2); CARBON DIOXIDE LEVEL 36 MEQ/L (21-32); CHLORIDE LEVEL 101 MEQ/L (98-107); CREATININE FOR GFR 0.47 MG/DL (0.55-1.02); GLOMERULAR FILTRATION RATE > 60.0 (>45); GLUCOSE, FASTING 120 MG/DL (80-110); MAGNESIUM LEVEL 1.7 MG/DL (1.8-2.4); SODIUM LEVEL 144 MEQ/L (136-145)
[2017-06-11 07:21] LABS: ANISOCYTOSIS 3+; HYPOCHROMASIA 2+
[2017-06-11] MEDS: ADVAIR HFA 115/21MCG INHALER INH SCH ×2 (07:34→19:54)
[2017-06-11] MEDS: HumaLOG INSULIN (NovoLOG) PER UNIT SC SCH ×4 (08:29→21:00)
[2017-06-11] MEDS: CitaloPRAM (CeleXA) 20 MG TAB PO SCH (08:30)
[2017-06-11] MEDS: glipiZIDE 10 MG TAB PO SCH (08:30)
[2017-06-11] MEDS: LOSARTAN 25 MG TAB PO SCH (08:33)
[2017-06-11] MEDS: PANTOPRAZOLE 40MG INJ (PROTONIX) (C9113) IV SCH (08:34)
[2017-06-11] MEDS: FUROSEMIDE 40 MG/4 ML VIAL (J1940) IV SCH ×2 (08:34→17:33)
[2017-06-11] MEDS: ENOXAPARIN 100MG/1ML SYRINGE (J1650) SC SCH ×2 (08:35→21:16)
[2017-06-11] MEDS: MAG SULF 1GM/100ML (MAG RUN) 1 GM in APPROPRIATE DILUENT 1 EA IV SCH ×2 (08:36→10:20)
[2017-06-11] MEDS: METOPROLOL TART 25 MG TABLET PO SCH ×2 (08:58→21:16)
[2017-06-11] MEDS: SPIRONOLACTONE 50 MG TAB PO SCH (08:58)
[2017-06-11 12:00] VITALS: BP 145/67
[2017-06-11 16:00] VITALS: BP 135/60
[2017-06-11] MEDS ORDERED: SALIVA SUBSTITUTE(MOUTHKOTE) BTL MT PRN (16:45)
--- NOTE | 2017-06-11 17:09 | IPNPDOC ---
Date Seen The patient was seen on 06/11/17. Progress Note Hospitalist Progress Note Subjective: The patient continues to deny any bleeding; she states that she has trouble keeping her fluid restriction because her mouth is so dry Objective: Physical Exam: Vitals: Vital Sign - Last 24 Hours 06/10/17 06/10/17 06/10/17 06/10/17 19:39 20:00 20:42 20:54 Temp 98.1 Pulse 95 95 Resp 20 B/P (MAP) 123/58 (79) 123/58 Pulse Ox 93 O2 Delivery Nasal Cannula Nasal Cannula Nasal Cannula O2 Flow Rate 3.0 3.0 3.0 06/11/17 06/11/17 06/11/17 06/11/17 00:00 00:15 00:30 01:00 Temp 99.6 Pulse 78 Resp 20 16 16 B/P (MAP) 149/67 (94) Pulse Ox 95 O2 Delivery Nasal Cannula Nasal Cannula O2 Flow Rate 3.0 3.0 06/11/17 06/11/17 06/11/17 06/11/17 04:00 04:56 08:17 08:33 Temp 98.6 Pulse 82 Resp 20 B/P (MAP) 175/71 (105) 165/72 Pulse Ox 94 O2 Delivery Nasal Cannula Nasal Cannula Nasal Cannula O2 Flow Rate 3.0 3.0 3.0 06/11/17 06/11/17 06/11/17 08:58 12:00 12:56 Temp 98.2 Pulse 87 70 Resp 20 B/P (MAP) 145/67 (93) Pulse Ox 91 O2 Delivery Nasal Cannula Nasal Cannula O2 Flow Rate 3.0 3.0 General: Awake, alert, no acute distress HEENT: Normocephalic, atraumatic, moist mucous membranes CV: Regular rate and rhythm Lungs: Clear to auscultation bilaterally Abd: Soft, nontender, nondistended Extremities: Intact pedal pulses Neuro: Alert and oriented 3, normal speech Psych: Normal mood and affect Labs and Imaging: Laboratory Tests 06/11/17 05:29 Red Blood Count 3.57 L, Mean Corpuscular Volume 77.0 L, Mean Corpuscular Hemoglobin 21.9 L, Mean Corpuscular Hemoglobin Concent 28.4 L, Red Cell Distribution Width 21.0 H, Neutrophils (%) (Auto) 59.4, Lymphocytes (%) (Auto) 28.3, Monocytes (%) (Auto) 6.3 H, Eosinophils (%) (Auto) 3.3 H, Basophils (%) ( Auto) 0.5, Neutrophils # (Auto) 4.1, Lymphocytes # (Auto) 2.1, Monocytes # (Auto ) 0.4, Eosinophils # (Auto) 0.2, Basophils # (Auto) 0.0, Calcium Level 8.4 L Assessment and Plan: 61-year-old female with COPD on 3 L home O2, possible sleep apnea, diabetes mellitus type 2 with neuropathy, obesity, hypertension, history of CVA, chronic anemia, chronic low back pain, chronic CHF, recent dx DVT/PEs who presents for increasing bilateral lower extremity edema. She has been found to have a new DVT. 1. New DVT with recent DVT/PE: The patient was recently diagnosed at the beginning of April with a DVT and pulmonary emboli. She has been on eliquis as an outpatient, but it appears that she was not on adequate dosing. Bilateral lower extremity Doppler on this admission shows a new right popliteal DVT. At this point, she is being bridged to Coumadin. Lovenox was started on the morning of June 08 and Coumadin was started that evening. She will need to have overlap with the Lovenox and Coumadin until at least the morning of June 13. We will follow daily INRs. Patient denies any family history of blood clots or prior personal clots. She also denies any recent surgeries or long plane rides/ car rides. Upon discharge, she would benefit from outpatient follow-up with the cardiac exercise physiologist to further investigate any underlying clotting disorder. Also will need cancer screening (mammogram, pap - already had recent Cscope) with PCP. 2. Increasing bilateral lower extremity edema, hx of chronic dCHF now with acute exacerbation: Certainly, part of this is secondary to her new DVT, a chest x-ray also shows interstitial edema. In light of her known CHF, an updated echocardiogram has been ordered and shows preserved EF but grade 2 diastolic dysfunction and severe pHTN. We are currently holding home oral Lasix and diuresing with Lasix IV BID. Continue home spironolactone. 3. Acute on chronic anemia: The patient's baseline hemoglobin appears to be in the eights. Upon arrival, her hemoglobin was 7.1. She received 1 unit of PRBCs and her hemoglobin improved to 7.9. The next morning, it had dropped to 6.9, and she has now received another unit of blood. We'll continue to monitor her hemoglobin; it is stable today. She currently denies any source of bleeding. She does tell me that she has had extensive outpatient workup with Dr. Gill for the anemia, including EGD, colonoscopy, and capsule endoscopy all of which were completed approximately 6 months ago. Per the patient report, these were unremarkable. Upon my review of the EMR, I do not see reports to confirm this, but I do see colonoscopy and EGD from October 2014, which are indeed unremarkable for source of bleed. As noted above, the patient would benefit from outpatient follow-up with the cardiac exercise physiologist, to further investigate her anemia. Fecal occult blood on this admission was negative 4. Right lower extremity ulcer: The patient states that she has chronically had difficulty with a reappearing wound care ever since some sort of issue with penicillin many years earlier. She tells me that it was healed over until she started to have increased swelling in her legs, and that is when it began to open up. At this time, it does not appear to be actively infected. Blood culture is negative. Wound culture grew normal skin anuradha, including staph warneri. She is afebrile with a normal white count. 5. COPD on 3 L home O2: Continue duo nebs. The patient uses Breo Ellipta at home , which we do not have on formulary. We have substituted Advair while in-house. 6. Diabetes mellitus type 2 with neuropathy: Currently holding home metformin. Continue glipizide, as well as sliding scale insulin while in house. 7. Hypertension: Continue home beta mariana and ARB. 8. History of CVA: The patient does not have any residual effects. Not currently on aspirin as she is being anticoagulated. Continue statin and control blood pressure. 9. Hypomagnesemia: replacing 10. Hepatitis testing: Patient and daughter have requested hepatitis testing. LFTs are WNL. Hepatitis panel is pending. DVT prophylaxis: Treatment dose Lovenox bridging to Coumadin Dispo: pending stabilization of her hemoglobin as well as therapeutic INR; will need outpatient follow-up with hematology for anemia and multiple VTE, as well as PCP follow up for malignancy work up VS, I&O, 24H, Fishbone Vital Signs/I&O Vital Signs Date Time Temp Pulse Resp B/P (MAP) Pulse Ox O2 Delivery O2 Flow Rate FiO2 06/11/17 12:56 Nasal Cannula 3.0 06/11/17 12:00 98.2 70 20 145/67 (93) 91 I&O- Last 24 Hours up to 6 AM 06/11/17 06:00 Intake Total 1830 ml Output Total 4600 ml Balance -2770 ml Laboratory Data 24H LABS Laboratory Tests 2 06/10/17 17:08: Bedside Glucose (Misc Panel) 218H 06/10/17 20:21: Bedside Glucose (Misc Panel) 155H 06/11/17 05:29: White Blood Count 6.9, Red Blood Count 3.57L, Hemoglobin 7.8L, Hematocrit 27.5L , Mean Corpuscular Volume 77.0L, Mean Corpuscular Hemoglobin 21.9L, Mean Corpuscular Hemoglobin Concent 28.4L, Red Cell Distribution Width 21.0H, Platelet Count 233, Neutrophils (%) (Auto) 59.4, Lymphocytes (%) (Auto) 28.3, Monocytes (%) (Auto) 6.3H, Eosinophils (%) (Auto) 3.3H, Basophils (%) (Auto) 0.5 , Neutrophils # (Auto) 4.1, Lymphocytes # (Auto) 2.1, Monocytes # (Auto) 0.4, Eosinophils # (Auto) 0.2, Basophils # (Auto) 0.0, Large Unclassified Cells % 2.2 , Large Unclassified Cells # 0.2, Platelet Estimate NORMAL, Hypochromasia 2+, Anisocytosis 3+, Prothrombin Time 18.4H, Prothromb Time International Ratio 1.49 , Anion Gap 7L, Glomerular Filtration Rate > 60.0, Blood Urea Nitrogen 7, Creatinine 0.47L, Sodium Level 144, Potassium Level 4.0, Chloride Level 101, Carbon Dioxide Level 36H, Calcium Level 8.4L, Magnesium Level 1.7L 06/11/17 11:39: Bedside Glucose (Misc Panel) 208H CBC/BMP Laboratory Tests 06/11/17 05:29 Red Blood Count 3.57 L, Mean Corpuscular Volume 77.0 L, Mean Corpuscular Hemoglobin 21.9 L, Mean Corpuscular Hemoglobin Concent 28.4 L, Red Cell Distribution Width 21.0 H, Neutrophils (%) (Auto) 59.4, Lymphocytes (%) (Auto) 28.3, Monocytes (%) (Auto) 6.3 H, Eosinophils (%) (Auto) 3.3 H, Basophils (%) ( Auto) 0.5, Neutrophils # (Auto) 4.1, Lymphocytes # (Auto) 2.1, Monocytes # (Auto ) 0.4, Eosinophils # (Auto) 0.2, Basophils # (Auto) 0.0, Calcium Level 8.4 L Microbiology Microbiology 06/07/17 Blood Culture - Preliminary, Resulted No Growth after 72 hours. All specime... 06/08/17 Stool Occult Blood (JOSE A) - Final, Complete 06/07/17 Wound Culture - Final, Complete Corynebacterium Species Staphylococcus Warneri MATT KHANNA Jun 11, 2017 17:09
[2017-06-11] MEDS: WARFARIN SOD 5 MG TAB PO SCH (17:33)
[2017-06-11 20:00] VITALS: BP 156/67
[2017-06-11] MEDS: diphenhydrAMINE 25 MG CAP PO SCH (21:16)
[2017-06-11] MEDS: SIMVASTATIN 20 MG TAB PO SCH (21:16)
[2017-06-11] MEDS: MIRTAZAPINE 15 MG TAB PO SCH (21:17)
[2017-06-12] VITALS (8 sets, daily range): BP systolic 127–170; BP diastolic 48–90
[2017-06-12] MEDS: IPRATROPIUM 0.5MG/ALBUTEROL 2.5MG INH SOL UD 3ML (DUONEB)(J7620) NEB SCH ×5 (03:07→20:00)
[2017-06-12 05:01] LABS: BASO % 0.6 % (0.0-1.0); EOS # 0.3 K/mm3 (0.0-0.50); EOS % 4.7 % (0.0-3.0); LARGE UNSTAINED CELL # 0.2 K/mm3 (0.0-0.4); LARGE UNSTAINED CELL % 2.9 % (0.0-4.0); LYMPH # 1.9 K/mm3 (1.5-4.5); LYMPH % 26.9 % (24.0-44.0); MEAN CORPUSCULAR HEMOGLOBIN 21.6 pg (27.0-33.0); MEAN CORPUSCULAR HGB CONC 27.7 g/dl (32.0-36.5); MEAN CORPUSCULAR VOLUME 77.9 fl (80.0-96.0); MONO # 0.4 K/mm3 (0.0-0.8); MONO % 6.5 % (0.0-5.0); NEUTROPHILS # 3.7 K/mm3 (1.8-7.7); NEUTROPHILS % 58.5 % (36.0-66.0); PLATELET COUNT, AUTOMATED 254 k/mm3 (150-450); RED CELL DISTRIBUTION WIDTH 21.3 % (11.5-14.5); WHITE BLOOD COUNT 6.3 K/mm3 (4.0-10.0)
[2017-06-12 05:05] LABS: INR 1.65
[2017-06-12 05:11] LABS: ANION GAP 6 MEQ/L (8-16); BLOOD UREA NITROGEN 11 MG/DL (7-18); CALCIUM LEVEL 8.6 MG/DL (8.8-10.2); CARBON DIOXIDE LEVEL 35 MEQ/L (21-32); CHLORIDE LEVEL 100 MEQ/L (98-107); CREATININE FOR GFR 0.51 MG/DL (0.55-1.02); GLOMERULAR FILTRATION RATE > 60.0 (>45); GLUCOSE, FASTING 161 MG/DL (80-110); MAGNESIUM LEVEL 1.8 MG/DL (1.8-2.4); POTASSIUM SERUM 3.8 MEQ/L (3.5-5.1); SODIUM LEVEL 141 MEQ/L (136-145)
[2017-06-12] MEDS: SLF 3 ML SYR IV SCH ×3 (05:15→20:30)
[2017-06-12] MEDS: ADVAIR HFA 115/21MCG INHALER INH SCH ×2 (07:21→20:38)
[2017-06-12] MEDS: MAG SULF 1GM/100ML (MAG RUN) 1 GM in APPROPRIATE DILUENT 1 EA IV SCH ×2 (08:17→09:39)
[2017-06-12] MEDS: PANTOPRAZOLE 40MG INJ (PROTONIX) (C9113) IV SCH (08:18)
[2017-06-12] MEDS: HumaLOG INSULIN (NovoLOG) PER UNIT SC SCH ×4 (08:19→20:43)
[2017-06-12] MEDS: FUROSEMIDE 40 MG/4 ML VIAL (J1940) IV SCH (08:19)
[2017-06-12] MEDS: ENOXAPARIN 100MG/1ML SYRINGE (J1650) SC SCH ×2 (08:19→20:29)
[2017-06-12] MEDS: SPIRONOLACTONE 50 MG TAB PO SCH (08:21)
[2017-06-12] MEDS: glipiZIDE 10 MG TAB PO SCH (08:21)
[2017-06-12] MEDS: CitaloPRAM (CeleXA) 20 MG TAB PO SCH (08:21)
[2017-06-12] MEDS: LOSARTAN 25 MG TAB PO SCH (08:21)
[2017-06-12] MEDS: METOPROLOL TART 25 MG TABLET PO SCH ×2 (08:22→20:26)
--- NOTE | 2017-06-12 16:01 | IPNPDOC ---
Date Seen The patient was seen on 06/12/17. Progress Note Hospitalist Progress Note Subjective: The patient continues to deny any bleeding; says the swelling in her legs is much improved Objective: Physical Exam: Vitals: Vital Sign - Last 24 Hours 06/11/17 06/11/17 06/11/17 06/11/17 16:00 19:56 20:00 20:00 Temp 98.5 98.0 Pulse 80 77 Resp 18 18 B/P (MAP) 135/60 (85) 156/67 (96) Pulse Ox 96 97 O2 Delivery Nasal Cannula Nasal Cannula Room Air Nasal Cannula O2 Flow Rate 3.0 3.0 3.0 06/11/17 06/12/17 06/12/17 06/12/17 21:16 00:00 00:30 04:00 Temp 98.4 97.3 Pulse 77 76 71 Resp 18 18 B/P (MAP) 156/67 140/69 (92) 127/62 (83) Pulse Ox 93 98 O2 Delivery Nasal Cannula Nasal Cannula Nasal Cannula O2 Flow Rate 2.0 3.0 3.0 06/12/17 06/12/17 06/12/17 06/12/17 04:42 08:00 08:21 08:22 Temp 97.7 Pulse 75 75 Resp 18 B/P (MAP) 170/73 (105) 173/73 173/73 Pulse Ox 94 O2 Delivery Nasal Cannula Nasal Cannula O2 Flow Rate 3.0 3.0 06/12/17 12:00 Temp 98.1 Pulse 71 Resp 18 B/P (MAP) 148/66 (93) Pulse Ox 91 O2 Delivery Nasal Cannula O2 Flow Rate 3.0 General: Awake, alert, no acute distress HEENT: Normocephalic, atraumatic, moist mucous membranes CV: Regular rate and rhythm Lungs: Clear to auscultation bilaterally Abd: Soft, nontender, nondistended Extremities: Intact pedal pulses, no pedal edema Neuro: Alert and oriented 3, normal speech Psych: Normal mood and affect Labs and Imaging: Laboratory Tests 06/12/17 04:30 Red Blood Count 3.63 L, Mean Corpuscular Volume 77.9 L, Mean Corpuscular Hemoglobin 21.6 L, Mean Corpuscular Hemoglobin Concent 27.7 L, Red Cell Distribution Width 21.3 H, Neutrophils (%) (Auto) 58.5, Lymphocytes (%) (Auto) 26.9, Monocytes (%) (Auto) 6.5 H, Eosinophils (%) (Auto) 4.7 H, Basophils (%) ( Auto) 0.6, Neutrophils # (Auto) 3.7, Lymphocytes # (Auto) 1.9, Monocytes # (Auto ) 0.4, Eosinophils # (Auto) 0.3, Basophils # (Auto) 0.0, Calcium Level 8.6 L Assessment and Plan: 61-year-old female with COPD on 3 L home O2, possible sleep apnea, diabetes mellitus type 2 with neuropathy, obesity, hypertension, history of CVA, chronic anemia, chronic low back pain, chronic CHF, recent dx DVT/PEs who presents for increasing bilateral lower extremity edema. She has been found to have a new DVT. 1. New DVT with recent DVT/PE: The patient was recently diagnosed at the beginning of April with a DVT and pulmonary emboli. She has been on eliquis as an outpatient, but it appears that she was not on adequate dosing. Bilateral lower extremity Doppler on this admission shows a new right popliteal DVT. At this point, she is being bridged to Coumadin. Lovenox was started on the morning of June 08 and Coumadin was started that evening. She will need to have overlap with the Lovenox and Coumadin until at least the morning of June 13. We will follow daily INRs. Patient denies any family history of blood clots or prior personal clots. She also denies any recent surgeries or long plane rides/ car rides. Upon discharge, she would benefit from outpatient follow-up with the boat outfitting supervisor to further investigate any underlying clotting disorder. Also will need cancer screening (mammogram, pap - already had recent Cscope) with PCP. 2. Increasing bilateral lower extremity edema, hx of chronic dCHF now with acute exacerbation: Certainly, part of this is secondary to her new DVT, a chest x-ray also shows interstitial edema. In light of her known CHF, an updated echocardiogram has been ordered and shows preserved EF but grade 2 diastolic dysfunction and severe pHTN. We have been diuresing with Lasix IV BID but we will change back to PO lasix tonight at increased dose of BID rather than daily. Continue home spironolactone. 3. Acute on chronic anemia: The patient's baseline hemoglobin appears to be in the eights. Upon arrival, her hemoglobin was 7.1. She received 1 unit of PRBCs and her hemoglobin improved to 7.9. The next morning, it had dropped to 6.9, and she has now received another unit of blood. We'll continue to monitor her hemoglobin; it is stable today. She currently denies any source of bleeding. She does tell me that she has had extensive outpatient workup with Dr. Gill for the anemia, including EGD, colonoscopy, and capsule endoscopy all of which were completed approximately 6 months ago. Per the patient report, these were unremarkable. Upon my review of the EMR, I do not see reports to confirm this, but I do see colonoscopy and EGD from October 2014, which are indeed unremarkable for source of bleed. As noted above, the patient would benefit from outpatient follow-up with the boat outfitting supervisor, to further investigate her anemia. Fecal occult blood on this admission was negative 4. Right lower extremity ulcer: The patient states that she has chronically had difficulty with a reappearing wound care ever since some sort of issue with penicillin many years earlier. She tells me that it was healed over until she started to have increased swelling in her legs, and that is when it began to open up. At this time, it does not appear to be actively infected. Blood culture is negative. Wound culture grew normal skin anuradha, including staph warneri. She is afebrile with a normal white count. 5. COPD on 3 L home O2: Continue duo nebs. The patient uses Breo Ellipta at home , which we do not have on formulary. We have substituted Advair while in-house. 6. Diabetes mellitus type 2 with neuropathy: Currently holding home metformin. Continue glipizide, as well as sliding scale insulin while in house. 7. Hypertension: Continue home beta mariana and ARB. 8. History of CVA: The patient does not have any residual effects. Not currently on aspirin as she is being anticoagulated. Continue statin and control blood pressure. 9. Hypomagnesemia: replacing 10. Hepatitis testing: Patient and daughter have requested hepatitis testing. LFTs are WNL. Hepatitis panel is negative. DVT prophylaxis: Treatment dose Lovenox bridging to Coumadin Dispo: pending stabilization of her hemoglobin as well as therapeutic INR; will need outpatient follow-up with hematology for anemia and multiple VTE, as well as PCP follow up for malignancy work up VS, I&O, 24H, [facility] Vital Signs/I&O Vital Signs Date Time Temp Pulse Resp B/P (MAP) Pulse Ox O2 Delivery O2 Flow Rate FiO2 06/12/17 12:00 98.1 71 18 148/66 (93) 91 Nasal Cannula 3.0 I&O- Last 24 Hours up to 6 AM 06/12/17 05:59 Intake Total 1810 ml Output Total 2775 ml Balance -965 ml Laboratory Data 24H LABS Laboratory Tests 2 06/11/17 17:28: Bedside Glucose (Misc Panel) 147H 06/11/17 21:12: Bedside Glucose (Misc Panel) 237H 06/12/17 04:30: White Blood Count 6.3, Red Blood Count 3.63L, Hemoglobin 7.8L, Hematocrit 28.3L , Mean Corpuscular Volume 77.9L, Mean Corpuscular Hemoglobin 21.6L, Mean Corpuscular Hemoglobin Concent 27.7L, Red Cell Distribution Width 21.3H, Platelet Count 254, Neutrophils (%) (Auto) 58.5, Lymphocytes (%) (Auto) 26.9, Monocytes (%) (Auto) 6.5H, Eosinophils (%) (Auto) 4.7H, Basophils (%) (Auto) 0.6 , Neutrophils # (Auto) 3.7, Lymphocytes # (Auto) 1.9, Monocytes # (Auto) 0.4, Eosinophils # (Auto) 0.3, Basophils # (Auto) 0.0, Large Unclassified Cells % 2.9 , Large Unclassified Cells # 0.2, Prothrombin Time 20.0H, Prothromb Time International Ratio 1.65, Anion Gap 6L, Glomerular Filtration Rate > 60.0, Blood Urea Nitrogen 11#, Creatinine 0.51L, Sodium Level 141, Potassium Level 3.8 , Chloride Level 100, Carbon Dioxide Level 35H, Calcium Level 8.6L, Magnesium Level 1.8 06/12/17 11:34: Bedside Glucose (Misc Panel) 242H CBC/BMP Laboratory Tests 06/12/17 04:30 Red Blood Count 3.63 L, Mean Corpuscular Volume 77.9 L, Mean Corpuscular Hemoglobin 21.6 L, Mean Corpuscular Hemoglobin Concent 27.7 L, Red Cell Distribution Width 21.3 H, Neutrophils (%) (Auto) 58.5, Lymphocytes (%) (Auto) 26.9, Monocytes (%) (Auto) 6.5 H, Eosinophils (%) (Auto) 4.7 H, Basophils (%) ( Auto) 0.6, Neutrophils # (Auto) 3.7, Lymphocytes # (Auto) 1.9, Monocytes # (Auto ) 0.4, Eosinophils # (Auto) 0.3, Basophils # (Auto) 0.0, Calcium Level 8.6 L Microbiology Microbiology 06/07/17 Blood Culture - Preliminary, Resulted No Growth after 72 hours. All specime... 06/08/17 Stool Occult Blood (JOSE A) - Final, Complete 06/07/17 Wound Culture - Final, Complete Corynebacterium Species Staphylococcus Warneri MATT KHANNA Jun 12, 2017 16:01
[2017-06-12] MEDS: FUROSEMIDE 40 MG TAB PO SCH (17:04)
[2017-06-12] MEDS: WARFARIN SOD 5 MG TAB PO SCH (17:05)
[2017-06-12] MEDS: traMADol 50 MG TAB PO PRN (19:32)
[2017-06-12] MEDS: SIMVASTATIN 20 MG TAB PO SCH (20:25)
[2017-06-12] MEDS: diphenhydrAMINE 25 MG CAP PO SCH (20:25)
[2017-06-12] MEDS: MIRTAZAPINE 15 MG TAB PO SCH (20:26)
[2017-06-13] VITALS (7 sets, daily range): BP systolic 120–149; BP diastolic 48–65
[2017-06-13] MEDS: IPRATROPIUM 0.5MG/ALBUTEROL 2.5MG INH SOL UD 3ML (DUONEB)(J7620) NEB SCH ×7 (02:57→23:07)
[2017-06-13] MEDS: SLF 3 ML SYR IV SCH ×3 (05:29→20:57)
[2017-06-13 05:50] LABS: BASO # 0.1 K/mm3 (0.0-0.2); EOS # 0.3 K/mm3 (0.0-0.50); EOS % 5.4 % (0.0-3.0); LARGE UNSTAINED CELL # 0.2 K/mm3 (0.0-0.4); LARGE UNSTAINED CELL % 3.3 % (0.0-4.0); LYMPH # 1.8 K/mm3 (1.5-4.5); LYMPH % 29.2 % (24.0-44.0); MEAN CORPUSCULAR HEMOGLOBIN 21.7 pg (27.0-33.0); MEAN CORPUSCULAR HGB CONC 27.4 g/dl (32.0-36.5); MEAN CORPUSCULAR VOLUME 79.2 fl (80.0-96.0); MONO # 0.4 K/mm3 (0.0-0.8); NEUTROPHILS # 3.2 K/mm3 (1.8-7.7); PLATELET COUNT, AUTOMATED 308 k/mm3 (150-450)
[2017-06-13 05:51] LABS: INR 1.95
[2017-06-13 06:15] LABS: ANION GAP 9 MEQ/L (8-16); BLOOD UREA NITROGEN 12 MG/DL (7-18); CALCIUM LEVEL 9.2 MG/DL (8.8-10.2); CARBON DIOXIDE LEVEL 34 MEQ/L (21-32); CHLORIDE LEVEL 98 MEQ/L (98-107); CREATININE FOR GFR 0.62 MG/DL (0.55-1.02); GLOMERULAR FILTRATION RATE > 60.0 (>45); GLUCOSE, FASTING 174 MG/DL (80-110); MAGNESIUM LEVEL 1.9 MG/DL (1.8-2.4); POTASSIUM SERUM 4.1 MEQ/L (3.5-5.1); SODIUM LEVEL 141 MEQ/L (136-145)
[2017-06-13] MEDS: ADVAIR HFA 115/21MCG INHALER INH SCH ×2 (07:21→19:46)
[2017-06-13] MEDS: CitaloPRAM (CeleXA) 20 MG TAB PO SCH (08:40)
[2017-06-13] MEDS: METOPROLOL TART 25 MG TABLET PO SCH ×2 (08:40→20:53)
[2017-06-13] MEDS: glipiZIDE 10 MG TAB PO SCH (08:41)
[2017-06-13] MEDS: HumaLOG INSULIN (NovoLOG) PER UNIT SC SCH ×4 (08:41→20:45)
[2017-06-13] MEDS: FUROSEMIDE 40 MG TAB PO SCH ×2 (08:41→17:45)
[2017-06-13] MEDS: LOSARTAN 25 MG TAB PO SCH (08:41)
[2017-06-13] MEDS: SPIRONOLACTONE 50 MG TAB PO SCH (08:41)
[2017-06-13] MEDS: ENOXAPARIN 100MG/1ML SYRINGE (J1650) SC SCH ×2 (08:42→20:53)
[2017-06-13] MEDS: PANTOPRAZOLE 40MG INJ (PROTONIX) (C9113) IV SCH (08:42)
--- NOTE | 2017-06-13 11:58 | IPNPDOC ---
Date Seen The patient was seen on 06/13/17. Progress Note Hospitalist Progress Note Subjective: The patient continues to deny any bleeding; says the swelling in her legs is much improved; says that she is feeling well Objective: Physical Exam: Vitals: Vital Sign - Last 24 Hours 06/12/17 06/12/17 06/12/17 06/12/17 12:00 16:00 19:25 19:32 Temp 98.1 97.9 Pulse 71 78 Resp 18 18 20 B/P (MAP) 148/66 (93) 137/65 (89) Pulse Ox 91 93 O2 Delivery Nasal Cannula Nasal Cannula Nasal Cannula O2 Flow Rate 3.0 3.0 3.0 06/12/17 06/12/17 06/12/17 06/12/17 20:02 20:10 20:26 20:39 Temp 99.3 Pulse 83 83 Resp 20 18 B/P (MAP) 136/72 (93) 136/72 Pulse Ox 93 O2 Delivery Nasal Cannula Nasal Cannula O2 Flow Rate 3.0 3.0 06/12/17 06/13/17 06/13/17 06/13/17 23:59 04:51 08:00 08:40 Temp 98.7 98.7 98.2 Pulse 74 71 79 79 Resp 18 18 22 B/P (MAP) 130/48 (75) 141/65 (90) 149/65 (93) 149/65 Pulse Ox 96 96 90 O2 Delivery Nasal Cannula Nasal Cannula Nasal Cannula O2 Flow Rate 3.0 3.0 3.0 06/13/17 08:58 O2 Delivery Nasal Cannula O2 Flow Rate 3.0 General: Awake, alert, no acute distress HEENT: Normocephalic, atraumatic, moist mucous membranes CV: Regular rate and rhythm Lungs: Clear to auscultation bilaterally Abd: Soft, nontender, nondistended Extremities: Intact pedal pulses, no pedal edema Neuro: Alert and oriented 3, normal speech Psych: Normal mood and affect Labs and Imaging: Laboratory Tests 06/13/17 05:08 Red Blood Count 3.79 L, Mean Corpuscular Volume 79.2 L, Mean Corpuscular Hemoglobin 21.7 L, Mean Corpuscular Hemoglobin Concent 27.4 L, Red Cell Distribution Width 21.0 H, Neutrophils (%) (Auto) 54.0, Lymphocytes (%) (Auto) 29.2, Monocytes (%) (Auto) 7.0 H, Eosinophils (%) (Auto) 5.4 H, Basophils (%) ( Auto) 1.0, Neutrophils # (Auto) 3.2, Lymphocytes # (Auto) 1.8, Monocytes # (Auto ) 0.4, Eosinophils # (Auto) 0.3, Basophils # (Auto) 0.1, Calcium Level 9.2 Assessment and Plan: 61-year-old female with COPD on 3 L home O2, possible sleep apnea, diabetes mellitus type 2 with neuropathy, obesity, hypertension, history of CVA, chronic anemia, chronic low back pain, chronic CHF, recent dx DVT/PEs who presents for increasing bilateral lower extremity edema. She has been found to have a new DVT. 1. New DVT with recent DVT/PE: The patient was recently diagnosed at the beginning of April with a DVT and pulmonary emboli. She has been on eliquis as an outpatient, but it appears that she was not on adequate dosing. Bilateral lower extremity Doppler on this admission shows a new right popliteal DVT. At this point, she is being bridged to Coumadin. Lovenox was started on the morning of June 08 and Coumadin was started that evening. She will need to have overlap with the Lovenox and Coumadin until at least the morning of June 13 ( today), however, since INR is subtherapeutic, we will continue lovenox until INR is at goal. We will follow daily INRs. Patient denies any family history of blood clots or prior personal clots. She also denies any recent surgeries or long plane rides/car rides. Upon discharge, she would benefit from outpatient follow-up with the licensed audiologist to further investigate any underlying clotting disorder. Also will need cancer screening (mammogram, pap - already had recent Cscope) with PCP. 2. Increasing bilateral lower extremity edema, hx of chronic dCHF now with acute exacerbation: Certainly, part of this is secondary to her new DVT, a chest x-ray also shows interstitial edema. In light of her known CHF, an updated echocardiogram has been ordered and shows preserved EF but grade 2 diastolic dysfunction and severe pHTN. We diuresed with Lasix IV BID but have now changed back to PO lasix at increased dose of BID rather than daily. Continue home spironolactone. 3. Acute on chronic anemia: The patient's baseline hemoglobin appears to be in the eights. Upon arrival, her hemoglobin was 7.1. She received 1 unit of PRBCs and her hemoglobin improved to 7.9. The next morning, it had dropped to 6.9, and she has now received another unit of blood. We'll continue to monitor her hemoglobin; it is stable today. She currently denies any source of bleeding. She does tell me that she has had extensive outpatient workup with Dr. Gill for the anemia, including EGD, colonoscopy, and capsule endoscopy all of which were completed approximately 6 months ago. Per the patient report, these were unremarkable. Upon my review of the EMR, I do not see reports to confirm this, but I do see colonoscopy and EGD from October 2014, which are indeed unremarkable for source of bleed. As noted above, the patient would benefit from outpatient follow-up with the licensed audiologist, to further investigate her anemia. Fecal occult blood on this admission was negative 4. Right lower extremity ulcer: The patient states that she has chronically had difficulty with a reappearing wound care ever since some sort of issue with penicillin many years earlier. She tells me that it was healed over until she started to have increased swelling in her legs, and that is when it began to open up. At this time, it does not appear to be actively infected. Blood culture is negative. Wound culture grew normal skin anuradha, including staph warneri. She is afebrile with a normal white count. 5. COPD on 3 L home O2: Continue duo nebs. The patient uses Breo Ellipta at home , which we do not have on formulary. We have substituted Advair while in-house. 6. Diabetes mellitus type 2 with neuropathy: Currently holding home metformin. Continue glipizide, as well as sliding scale insulin while in house. 7. Hypertension: Continue home beta mariana and ARB. 8. History of CVA: The patient does not have any residual effects. Not currently on aspirin as she is being anticoagulated. Continue statin and control blood pressure. 9. Hypomagnesemia: replaced 10. Hepatitis testing: Patient and daughter have requested hepatitis testing. LFTs are WNL. Hepatitis panel is negative. DVT prophylaxis: Treatment dose Lovenox bridging to Coumadin Dispo: pending stabilization of her hemoglobin as well as therapeutic INR; will need outpatient follow-up with hematology for anemia and multiple VTE, as well as PCP follow up for malignancy work up VS, I&O, 24H, [place] Vital Signs/I&O Vital Signs Date Time Temp Pulse Resp B/P (MAP) Pulse Ox O2 Delivery O2 Flow Rate FiO2 06/13/17 08:58 Nasal Cannula 3.0 06/13/17 08:40 79 149/65 06/13/17 08:00 98.2 22 90 I&O- Last 24 Hours up to 6 AM 06/13/17 06:00 Intake Total 2120 ml Output Total 3025 ml Balance -905 ml Laboratory Data 24H LABS Laboratory Tests 2 06/12/17 16:57: Bedside Glucose (Misc Panel) 191H 06/12/17 20:40: Bedside Glucose (Misc Panel) 293H 06/13/17 05:08: White Blood Count 6.0, Red Blood Count 3.79L, Hemoglobin 8.2L, Hematocrit 30.0L , Mean Corpuscular Volume 79.2L, Mean Corpuscular Hemoglobin 21.7L, Mean Corpuscular Hemoglobin Concent 27.4L, Red Cell Distribution Width 21.0H, Platelet Count 308, Neutrophils (%) (Auto) 54.0, Lymphocytes (%) (Auto) 29.2, Monocytes (%) (Auto) 7.0H, Eosinophils (%) (Auto) 5.4H, Basophils (%) (Auto) 1.0 , Neutrophils # (Auto) 3.2, Lymphocytes # (Auto) 1.8, Monocytes # (Auto) 0.4, Eosinophils # (Auto) 0.3, Basophils # (Auto) 0.1, Large Unclassified Cells % 3.3 , Large Unclassified Cells # 0.2, Prothrombin Time 22.9H, Prothromb Time International Ratio 1.95, Anion Gap 9, Glomerular Filtration Rate > 60.0, Blood Urea Nitrogen 12, Creatinine 0.62, Sodium Level 141, Potassium Level 4.1, Chloride Level 98, Carbon Dioxide Level 34H, Calcium Level 9.2, Magnesium Level 1.9 CBC/BMP Laboratory Tests 06/13/17 05:08 Red Blood Count 3.79 L, Mean Corpuscular Volume 79.2 L, Mean Corpuscular Hemoglobin 21.7 L, Mean Corpuscular Hemoglobin Concent 27.4 L, Red Cell Distribution Width 21.0 H, Neutrophils (%) (Auto) 54.0, Lymphocytes (%) (Auto) 29.2, Monocytes (%) (Auto) 7.0 H, Eosinophils (%) (Auto) 5.4 H, Basophils (%) ( Auto) 1.0, Neutrophils # (Auto) 3.2, Lymphocytes # (Auto) 1.8, Monocytes # (Auto ) 0.4, Eosinophils # (Auto) 0.3, Basophils # (Auto) 0.1, Calcium Level 9.2 Microbiology Microbiology 06/07/17 Blood Culture - Final, Complete NO GROWTH AFTER 5 DAYS 06/08/17 Stool Occult Blood (JOSE A) - Final, Complete 06/07/17 Wound Culture - Final, Complete Corynebacterium Species Staphylococcus Warneri MATT KHANNA Jun 13, 2017 11:58
[2017-06-13] MEDS ORDERED: POLYVINYL ALCOHOL OPHTH SOLN 15 ML(LIQUITEARS) OU PRN (12:00)
[2017-06-13] MEDS: traMADol 50 MG TAB PO PRN (17:45)
[2017-06-13] MEDS: WARFARIN SOD 5 MG TAB PO SCH (17:45)
[2017-06-13] MEDS: SIMVASTATIN 20 MG TAB PO SCH (20:53)
[2017-06-13] MEDS: diphenhydrAMINE 25 MG CAP PO SCH (20:53)
[2017-06-13] MEDS: MIRTAZAPINE 15 MG TAB PO SCH (20:53)
[2017-06-14] MEDS: traMADol 50 MG TAB PO PRN (03:07)
[2017-06-14 03:10] VITALS: BP 130/60
[2017-06-14] MEDS: IPRATROPIUM 0.5MG/ALBUTEROL 2.5MG INH SOL UD 3ML (DUONEB)(J7620) NEB SCH ×2 (03:51→12:03)
[2017-06-14 05:42] LABS: ADD MANUAL DIFFER YES; MEAN CORPUSCULAR HGB CONC 28.1 g/dl (32.0-36.5); MEAN CORPUSCULAR VOLUME 78.4 fl (80.0-96.0); PLATELET COUNT, AUTOMATED 325 k/mm3 (150-450); RED CELL DISTRIBUTION WIDTH 20.7 % (11.5-14.5); WHITE BLOOD COUNT 6.3 K/mm3 (4.0-10.0)
[2017-06-14 05:50] LABS: INR 2.12
[2017-06-14 05:56] LABS: ANION GAP 4 MEQ/L (8-16); BLOOD UREA NITROGEN 10 MG/DL (7-18); CALCIUM LEVEL 9.3 MG/DL (8.8-10.2); CARBON DIOXIDE LEVEL 36 MEQ/L (21-32); CHLORIDE LEVEL 95 MEQ/L (98-107); CREATININE FOR GFR 0.59 MG/DL (0.55-1.02); GLOMERULAR FILTRATION RATE > 60.0 (>45); GLUCOSE, FASTING 219 MG/DL (80-110); MAGNESIUM LEVEL 1.5 MG/DL (1.8-2.4); POTASSIUM SERUM 4.4 MEQ/L (3.5-5.1); SODIUM LEVEL 135 MEQ/L (136-145)
[2017-06-14] MEDS: SLF 3 ML SYR IV SCH (06:31)
[2017-06-14] MEDS ORDERED: MAGNESIUM OXIDE 400 MG TAB (MAG-OX) PO ONE ×2 (06:45→10:45)
[2017-06-14] MEDS ORDERED: MAG SULF 1GM/100ML (MAG RUN) 1 GM in APPROPRIATE DILUENT 1 EA IV SCH (07:00)
[2017-06-14 07:09] LABS: ANISOCYTOSIS 2+; EOSINOPHILS 6 % (0-5); MICROCYTOSIS 1+
[2017-06-14 07:10] LABS: HYPOCHROMASIA 2+
[2017-06-14 08:00] VITALS: BP 147/88
[2017-06-14] MEDS: ADVAIR HFA 115/21MCG INHALER INH SCH (08:05)
[2017-06-14] MEDS: HumaLOG INSULIN (NovoLOG) PER UNIT SC SCH (08:53)
[2017-06-14] MEDS: LOSARTAN 25 MG TAB PO SCH (08:53)
[2017-06-14] MEDS: SPIRONOLACTONE 50 MG TAB PO SCH (08:53)
[2017-06-14] MEDS: glipiZIDE 10 MG TAB PO SCH (08:54)
[2017-06-14] MEDS: CitaloPRAM (CeleXA) 20 MG TAB PO SCH (08:54)
[2017-06-14] MEDS: METOPROLOL TART 25 MG TABLET PO SCH (08:54)
[2017-06-14] MEDS: FUROSEMIDE 40 MG TAB PO SCH (08:54)
[2017-06-14] MEDS: PANTOPRAZOLE 40MG INJ (PROTONIX) (C9113) IV SCH (08:55)
[2017-06-14] MEDS: ENOXAPARIN 100MG/1ML SYRINGE (J1650) SC SCH (08:55)
[2017-06-14] MEDS ORDERED: COUM1TAB17 PO (11:48)
[2017-06-14 12:00] VITALS: BP 150/73
--- NOTE | 2017-06-15 17:53 | DS.PDOC ---
Discharge Summary General Date of Admission Jun 07, 2017 at 15:23 Date of Discharge 06/14/2017 Discharge Summary DISCHARGE SUMMARY DATE OF ADMISSION: 06/07/2017 DATE OF DISCHARGE: 06/14/2017 PRIMARY CARE PHYSICIAN: Dr. Oneill DISCHARGE DIAGNOS(E)S: New DVT Acute on chronic diastolic CHF Acute on chronic anemia HPI & HOSPITAL COURSE: 61-year-old female with COPD on 3 L home O2, possible sleep apnea, diabetes mellitus type 2 with neuropathy, obesity, hypertension, history of CVA, chronic anemia, chronic low back pain, chronic CHF, recent dx DVT/PEs who presents for increasing bilateral lower extremity edema. She has been found to have a new DVT. 1. New DVT with recent DVT/PE: The patient was recently diagnosed at the beginning of April with a DVT and pulmonary emboli. She has been on eliquis as an outpatient, but it appears that she was not on adequate dosing. Bilateral lower extremity Doppler on this admission shows a new right popliteal DVT. At this point, she has been bridged to Coumadin. Patient denies any family history of blood clots or prior personal clots. She also denies any recent surgeries or long plane rides/car rides. Upon discharge, she would benefit from outpatient follow-up with the bursar to further investigate any underlying clotting disorder. Also will need cancer screening (mammogram, pap - already had recent Cscope) with PCP. 2. Increasing bilateral lower extremity edema, hx of chronic dCHF now with acute exacerbation: Certainly, part of this is secondary to her new DVT, a chest x-ray also shows interstitial edema. In light of her known CHF, an updated echocardiogram has been ordered and shows preserved EF but grade 2 diastolic dysfunction and severe pHTN. We diuresed with Lasix IV BID but have now changed back to home PO lasix. Continue home spironolactone. 3. Acute on chronic anemia: The patient's baseline hemoglobin appears to be in the eights. Upon arrival, her hemoglobin was 7.1. She received 1 unit of PRBCs and her hemoglobin improved to 7.9. The next morning, it had dropped to 6.9, and she has now received another unit of blood. Hgb has been stable for several days now. She currently denies any source of bleeding. She does tell me that she has had extensive outpatient workup with Dr. Gill for the anemia, including EGD, colonoscopy, and capsule endoscopy all of which were completed approximately 6 months ago. Per the patient report, these were unremarkable. Upon my review of the EMR, I do not see reports to confirm this, but I do see colonoscopy and EGD from October 2014, which are indeed unremarkable for source of bleed. As noted above, the patient would benefit from outpatient follow-up with the bursar, to further investigate her anemia. Fecal occult blood on this admission was negative 4. Right lower extremity ulcer: The patient states that she has chronically had difficulty with a reappearing wound care ever since some sort of issue with penicillin many years earlier. She tells me that it was healed over until she started to have increased swelling in her legs, and that is when it began to open up. At this time, it does not appear to be actively infected. Blood culture is negative. Wound culture grew normal skin anuradha, including staph warneri. She is afebrile with a normal white count. 5. COPD on 3 L home O2: Continue duo nebs. The patient uses Breo Ellipta at home , which we do not have on formulary. We have substituted Advair while in-house. 6. Diabetes mellitus type 2 with neuropathy: Currently holding home metformin but will resume at discharge. Continue glipizide, as well as sliding scale insulin while in house. 7. Hypertension: Continue home beta mariana and ARB. 8. History of CVA: The patient does not have any residual effects. Not currently on aspirin as she is being anticoagulated. Continue statin and control blood pressure. 9. Hypomagnesemia: replaced 10. Hepatitis testing: Patient and daughter have requested hepatitis testing. LFTs are WNL. Hepatitis panel is negative. PHYSICAL EXAMINATION ON DISCHARGE: VITAL SIGNS: Vital Signs Date Time Temp Pulse Resp B/P (MAP) Pulse Ox O2 Delivery O2 Flow Rate FiO2 06/14/17 12:00 Nasal Cannula 3.0 06/14/17 12:00 97.9 75 20 150/73 (98) 98 General: Awake, alert, no acute distress HEENT: Normocephalic, atraumatic, moist mucous membranes CV: Regular rate and rhythm Lungs: Clear to auscultation bilaterally Abd: Soft, nontender, nondistended Extremities: Intact pedal pulses, no pedal edema Neuro: Alert and oriented 3, normal speech Psych: Normal mood and affect DISPOSITION: Home DISCHARGE INSTRUCTIONS: Follow-up with PCP within one week. He will need to check the INR at that time; he will also need to make sure you're up-to-date on your cancer screening. Follow-up with hematology for anemia and multiple VTE/possible maligancy work up ; we will refer you for this. Fluid restrict to 1500 mL daily and keep a low sodium diet. If symptoms return, or if you experience worsening of your symptoms, please call your doctor or return to the emergency department. ITEMS THAT NEED OUTPATIENT FOLLOWUP: Continued monitoring of INR, ensure that the patient sees a bursar, make sure that patient is up-to-date on cancer screening Patient was seen and examined by me on the day of discharge, and I spent a total time of greater than 30 minutes on this discharge. Vital Signs/I&Os Vital Signs Date Time Temp Pulse Resp B/P (MAP) Pulse Ox O2 Delivery O2 Flow Rate FiO2 06/14/17 12:00 Nasal Cannula 3.0 06/14/17 12:00 97.9 75 20 150/73 (98) 98 I&O- Last 24 Hours up to 6 AM 06/15/17 06:00 Intake Total 600 ml Output Total 1250 ml Balance -650 ml Microbiology Microbiology 06/07/17 Blood Culture - Final, Complete NO GROWTH AFTER 5 DAYS 06/08/17 Stool Occult Blood (JOSE A) - Final, Complete 06/07/17 Wound Culture - Final, Complete Corynebacterium Species Staphylococcus Warneri Discharge Medications Scheduled (Dexilant) 60 Mg Cap, 60 MG PO DAILY, (Reported) (Tab-A-Nancy) 1 Tab Tab, 1 TAB PO DAILY, (Reported) Citalopram Hydrobromide (Citalopram Hydrobromide) 20 Mg Tab, 20 MG PO DAILY, ( Reported) Diphenhydramine HCl (Benadryl Allergy) 25 Mg Cap, 25 MG PO QHS, (Reported) Fluticasone/Vilanterol (Breo Ellipta 100-25 Mcg/INH) 1 Inh Inh, 1 PUFF INH QHS, (Reported) Furosemide (Furosemide) 40 Mg Tab, 40 MG PO DAILY, (Reported) Glipizide (Glipizide) 10 Mg Tab, 10 MG PO DAILY, (Reported) Losartan Potassium (Losartan Potassium) 25 Mg Tab, 25 MG PO DAILY, (Reported) Metformin Hydrochloride (Metformin HCl) 500 Mg Tab, 500 MG PO BID, (Reported) Metoprolol Tartrate (Metoprolol Tartrate) 25 Mg Tab, 25 MG PO BID, (Reported) Mirtazapine (Mirtazapine) 30 Mg Tab, 30 MG PO QHS, (Reported) Simvastatin (Simvastatin) 20 Mg Tab, 20 MG PO QHS, (Reported) Spironolactone (Spironolactone) 50 Mg Tab, 50 MG PO DAILY, (Reported) Warfarin Sod (Coumadin) 5 Mg Tab, 10 MG PO DAILY@17 Scheduled PRN Acetaminophen (Acetaminophen) 325 Mg Tab, 650 MG PO Q4H PRN for PAIN, (Reported) Albuterol/Ipratropium (Ipratropium [place]/Albut 0.5-2.5 (3) mg/3Ml) 1 Yoni Yoni, 1 YONI INH Q6H PRN for SHORTNESS OF BREATH, (Reported) Allergies Coded Allergies: Latex (Verified Allergy, Unknown, 02/07/13) Erythromycin (Verified Adverse Reaction, Mild, VOMITTING, 02/07/13) Bupropion (Verified Adverse Reaction, Unknown, "violent", 04/10/17) MTAT KHANNA Jun 15, 2017 17:53
== END 2017-06-14 13:13 | disposition home or self-care (01) | DRG 299 ==
LOC: M ED 10:59 → M ED INP 15:23 → M PCU 17:37
PROVIDERS: ADMIT Internal Medicine; ATTEND Hospitalist
PROC: 30253N1 (ICD-10-PCS; principal; 2017-06-07)
DX: I82.431 Acute embolism and thrombosis of right popliteal vein (principal); I50.33 Acute on chronic diastolic (congestive) heart failure; L97.319 Non-pressure chronic ulcer of right ankle with unspecified severity; J96.11 Chronic respiratory failure with hypoxia; J44.9 Chronic obstructive pulmonary disease, unspecified; G47.33 Obstructive sleep apnea (adult) (pediatric); E11.40 Type 2 diabetes mellitus with diabetic neuropathy, unspecified; E66.9 Obesity, unspecified; I11.0 Hypertensive heart disease with heart failure; F17.210 Nicotine dependence, cigarettes, uncomplicated; E78.00 Pure hypercholesterolemia, unspecified; D50.9 Iron deficiency anemia, unspecified; E83.42 Hypomagnesemia; I27.2 Other secondary pulmonary hypertension; I87.2 Venous insufficiency (chronic) (peripheral); R91.8 Other nonspecific abnormal finding of lung field; M54.5 Low back pain; Z79.01 Long term (current) use of anticoagulants; Z99.81 Dependence on supplemental oxygen; Z86.73 Personal history of transient ischemic attack (TIA), and cerebral infarction without residual deficits; Z79.84 Long term (current) use of oral hypoglycemic drugs; Z79.899 Other long term (current) drug therapy; Z88.1 Allergy status to other antibiotic agents; Z88.8 Allergy status to other drugs, medicaments and biological substances; Z68.39 Body mass index [BMI] 39.0-39.9, adult; Z86.711 Personal history of pulmonary embolism

== ENCOUNTER → 2017-06-29 | Outpatient (REF) | payer MEDICARE, MEDICAID ==
[~2017-06-29] MED LIST changes: +ACET1TAB17 PO; +COUM1TAB17 PO; +ELIQ5TAB PO; +POLY2.5S OU; +SIMV20TA2 PO
[2017-06-29 20:33] LABS: RETIC HEMOGLOBIN CONTENT CHr 22.1 PG (24-36); RETICULOCYTE % 1.9 % (0.5-1.5)
[2017-06-29 20:46] LABS: FERRITIN 9 NG/ML (8-252); IMMUNOGLOBULIN G 1590 MG/DL (681-1648); IMMUNOGLOBULIN M 114 MG/DL (40-230); PERCENT SATURATION 4.2 % (13.2-45.0); TOTAL IRON BINDING CAPACITY 455 UG/DL (250-450); TOTAL PROTEIN 8.6 GM/DL (6.4-8.2)
[2017-06-29 23:01] LABS: VITAMIN B12 LEVEL 463 PG/ML (247-911)
[2017-06-30 12:02] LABS: ALBUMIN 3.92 GM/DL (3.29-5.55); ALBUMIN % 45.6 % (55.8-66.1); GAMMA GLOBULIN % 20.2 % (11.1-18.8)
[2017-07-07 00:06] LABS: ERYTHROPOIETIN 195.1 mIU/mL (2.6-18.5); F8 ACTIVITY FOR F8 PANEL 275 % (57-163); F8 ACTIVITY vWB FOR F8 PANEL 92 % (50-200); F8 ANTIGEN FOR F8 PANEL 226 % (50-200); FREE KAPPA LIGHT CHAINS SERUM 47.4 mg/L (3.3-19.4); FREE LAMBDA LIGHT CHAINS SERUM 40.3 mg/L (5.7-26.3); INTERPRETATION: Note (.); KAPPA/LAMBDA RATIO SERUM 1.18 (0.26-1.65)
[2017-07-25 14:19] LABS: ENDOMYSIAL ABY IgG <1:10 (<1:10)
== END ==
LOC: M LAB REF 16:06
PROVIDERS: ATTEND Internal Medicine Medical Oncology
DX: D68.69 Other thrombophilia (principal); D64.9 Anemia, unspecified; I82.409 Acute embolism and thrombosis of unspecified deep veins of unspecified lower extremity

== ENCOUNTER → 2017-07-09 | Outpatient (REF) | payer MEDICARE, MEDICAID ==
[2017-07-12 00:06] LABS: ENDOMYSIAL ABY IgA Negative (Negative); TISSUE TRANSGLUTAMINASE IgG 2 U/mL (0-5)
[2017-07-23 16:18] LABS: ENDOMYSIAL ABY IgG <1:10 (<1:10)
== END ==
LOC: M LAB REF 13:50
PROVIDERS: ATTEND Internal Medicine Medical Oncology
DX: D64.9 Anemia, unspecified (principal)

== ENCOUNTER → 2017-07-17 | Outpatient (REF) | payer MEDICARE, MEDICAID | LOC: M LAB REF 13:16 | PROVIDERS: ATTEND Surgery | DX: D23.71 Other benign neoplasm of skin of right lower limb, including hip (principal) ==

== ENCOUNTER → 2017-08-03 | Outpatient (CLI) | payer MEDICARE, MEDICAID ==
--- NOTE | 2017-08-03 16:23 | REP ---
RIGHT LOWER EXTREMITY DUPLEX DOPPLER ARTERIAL ULTRASOUND: Real-time ultrasound evaluation and duplex Doppler evaluation of the right lower extremity arterial system is performed. Ankle at the brachial index is 1.0. There is elevated peak systolic velocity in the proximal to mid superficial femoral artery at 243.3 cm/s, suggesting mild stenosis in this region. Peak systolic velocity in the right common femoral artery is 179.9 cm/s with triphasic flow. Monophasic flow is seen in the distal superficial femoral artery and in the vessels distal to that. Relatively normal flow velocities are seen in the right popliteal artery and calf arteries. Peak systolic velocity of the right popliteal artery is 159.1 cm/s, tibial peroneal trunk 137.6 cm/s, with lower velocity distal to that. Signed by Oh Teresa MD 08/04/2017 05:16 P
== END ==
LOC: M RAD 10:53
PROVIDERS: ATTEND Surgery
DX: L97.312 Non-pressure chronic ulcer of right ankle with fat layer exposed (principal)

== ENCOUNTER → 2017-08-24 | Outpatient (CLI) | payer MEDICARE, MEDICAID ==
--- NOTE | 2017-08-24 14:22 | REP ---
LOW-DOSE LUNG SCREENING CT: Low-dose lung screening CT exam is performed in the axial plane. No suspicious nodular opacity is seen in either lung. There are linear fibroatelectatic changes in each lower lobe. No pleural effusion is seen. No mediastinal or hilar contour abnormality is seen. There are atherosclerotic calcifications of the thoracic aorta without evidence of aneurysm. Heart does not appear to be significantly enlarged. There are degenerative changes of the spine. IMPRESSION: No suspicious lung nodule. Mild bibasilar fibroatelectatic change. Recommend followup screening CT in 1 year. Signed by Oh Teresa MD 08/25/2017 07:54 P
== END ==
LOC: M RAD 12:45
PROVIDERS: ATTEND Internal Medicine Pulmonary Disease
DX: F17.218 Nicotine dependence, cigarettes, with other nicotine-induced disorders (principal)

== ENCOUNTER → 2017-08-27 | Outpatient (REF) | payer MEDICARE, MEDICAID ==
[2017-08-27 14:36] LABS: PERCENT SATURATION 10.7 % (13.2-45.0)
[2017-08-29 00:06] LABS: ENDOMYSIAL ABY IgA Negative (Negative)
== END ==
LOC: M LAB REF 14:04
PROVIDERS: ATTEND Internal Medicine Medical Oncology
DX: D64.9 Anemia, unspecified (principal); D69.6 Thrombocytopenia, unspecified

== ENCOUNTER → 2017-09-04 | Outpatient (REF) | payer MEDICARE, MEDICAID ==
[2017-09-04 12:49] LABS: MEAN CORPUSCULAR HEMOGLOBIN 24.6 pg (27.0-33.0); MEAN CORPUSCULAR VOLUME 84.7 fl (80.0-96.0); PLATELET COUNT, AUTOMATED 385 10^3/uL (150-450); RED CELL DISTRIBUTION WIDTH 25.5 % (11.5-14.5); WHITE BLOOD COUNT 7.9 10^3/uL (4.0-10.0)
[2017-09-04 13:21] LABS: ALBUMIN 3.5 GM/DL (3.2-5.2); ALBUMIN/GLOBULIN RATIO 0.81 (1.00-1.93); ALKALINE PHOSPHATASE 92 U/L (45-117); ALT/SGPT 18 U/L (12-78); ANION GAP 3 MEQ/L (8-16); AST/SGOT 18 U/L (15-37); BILIRUBIN,TOTAL 0.3 MG/DL (0.2-1.0); BLOOD UREA NITROGEN 11 MG/DL (7-18); CALCIUM LEVEL 9.5 MG/DL (8.8-10.2); CARBON DIOXIDE LEVEL 35 MEQ/L (21-32); CHLORIDE LEVEL 103 MEQ/L (98-107); CREATININE FOR GFR 0.54 MG/DL (0.55-1.02); GLOMERULAR FILTRATION RATE > 60.0 (>45); GLUCOSE, FASTING 83 MG/DL (80-110); POTASSIUM SERUM 4.9 MEQ/L (3.5-5.1); SODIUM LEVEL 141 MEQ/L (136-145); TOTAL PROTEIN 7.8 GM/DL (6.4-8.2)
== END ==
LOC: M LAB REF 12:21
PROVIDERS: ATTEND Surgery
DX: I87.311 Chronic venous hypertension (idiopathic) with ulcer of right lower extremity (principal); L97.312 Non-pressure chronic ulcer of right ankle with fat layer exposed; E11.9 Type 2 diabetes mellitus without complications; Z79.01 Long term (current) use of anticoagulants; Z79.84 Long term (current) use of oral hypoglycemic drugs; Z79.899 Other long term (current) drug therapy
CPT/HCPCS: 15271; 80053; 83036; 84134; 85027; Q4131

== ENCOUNTER → 2017-09-16 | Outpatient (REF) | payer MEDICARE, MEDICAID | LOC: M LAB REF 17:51 | PROVIDERS: ATTEND Internal Medicine Medical Oncology | DX: D64.9 Anemia, unspecified (principal); R53.83 Other fatigue ==

== ENCOUNTER → 2017-10-08 | Outpatient (CLI) | payer MEDICARE, MEDICAID ==
[~2017-10-08] MED LIST changes: +HEPARIN 1,000 UNITS/ML 10ML VIAL (FOR RADIOLOGY& DIALYSIS ONLY) As Ordered ONE; +ISOVUE-300 61% 50ML VIAL (Q9967) As Ordered ONE; +MIDAZOLAM INJ 2 MG/2 ML VIAL (J2250) As Ordered ONE; +NORC1TAB4 PO; +PERCOCET 5MG/325MG TAB As Ordered ONE; +fentaNYL 100 MCG/2 ML INJECTION (J3010) As Ordered ONE
--- NOTE | 2017-10-08 15:04 | REP ---
Duplex carotid sonography: History: Carotid bruit. Comparison soft tissue CT study of the neck is from July 21, 2014. Findings: Antegrade flow was observed in both vertebral arteries. Right vertebral artery flow significantly higher than left, 146 versus 45 cm/sec. I note that on July [address] study, the left vertebral artery is quite a bit smaller than the right. Right carotid: The right common carotid artery shows mild plaquing and diffuse intimal thickening. There is moderate mixed plaquing in the bulb and proximal ICA on the right side on two-dimensional scanning. Incidental note is made of a 1.9 cm right neck lymph node. There is also a 0.7 cm hypoechoic nodule in the right lobe of the thyroid gland. Color flow and spectral Doppler interrogation are unremarkable on the right. Velocity chart: CCA PSV 82 cm/s ICA PSV 130 cm/s ICA EDV 38 cm ECA PSV 110 cm/s Right ICA/CCA ratio borderline 1.6. Impression: 50-79% category narrowing in the right ICA by Doppler velocity criteria, probably near the lower end of this range. Left carotid: The left common carotid artery shows diffuse intimal thickening and mild plaquing. There is moderate mixed plaquing in the bulb and proximal ICA on two-dimensional scanning. Color flow and spectral Doppler interrogation demonstrates mildly elevated ICA velocities. Velocity chart: CCA PSV 110 cm/s ICA PSV 151 cm/s ICA EDV 48 cm ECA PSV 142 cm/s Left ICA/CCA ratio normal 1.4. Impression: 50-79% category narrowing in the left ICA by Doppler velocity criteria. Incidental findings include a borderline right neck lymph node and a 0.7 cm solid nodule in the right thyroid lobe. This may be a cyst. It does not appear suspicious by ultrasound criteria. Signed by Marcio Robles MD 10/08/2017 04:09 P
--- NOTE | 2017-10-28 09:34 | REPIR ---
DATE OF PROCEDURE: 10/08/2017 PREPROCEDURE DIAGNOSES: Nonhealing right lower extremity ulcer. Pulmonary embolus. POSTPROCEDURE DIAGNOSES: Nonhealing right lower extremity ulcer. Pulmonary embolus. PROCEDURE: Ultrasound guided left common femoral artery cannulation, aortigram, iliofemoral angiogram, selective right common femoral artery catheter placement with right lower extremity angiogram, selective right superficial femoral artery catheter placement with right lower extremity angiogram, Mynx closure of the left common femoral arteriotomy. SURGEON: Dr. Amadou Merlos. CAR SUPERVISOR: Deven Aruaz and Denise Sawyer. ANESTHESIA: Local with sedation with 2 mg of Versed, 100 mcg of Fentanyl and 10 mL of 2% lidocaine. ESTIMATED BLOOD LOSS: FLUORO TIME: 2.222 minutes. CONTRAST: 18 mL. SEDATION TIME: From 11:11 a.m. to 11: 45 a.m. for a total of 34 minutes with the sedation and cardiopulmonary monitoring performed by the nurse in the room under my direct supervision. I was present for and directed the entire case. HEPARIN: None. COMPLICATIONS: None. DRAINS: None. SPECIMENS: None. IMPLANTS: None. INDICATION: Patient is a 62-year-old female with venous insufficiency as well as nonhealing ulcer in the right lower extremity with nonpalpable pulses. Patient will under an angiogram with possible angioplasty and/or stent. Risks, benefits and alternative treatment options were discussed with the patient. Alternative treatment options included but were not limited to no intervention. PROCEDURE: The patient was taken to the angiography suite and placed supine on the angiography room table and then prepped and draped in a standard surgical fashion. Ultrasound was used to guide cannulation of the left common femoral vein with real-time concurrent visualization of the entry of the needle into the right common femoral artery. The micropuncture wire was then advanced through the micropuncture needle which was upsized to a micropuncture sheath. A Bentson wire was advanced through the micropuncture sheath which was upsized to a #5-Yakut sheath. An Omniflush catheter was placed in the aorta and an aortogram was performed. Catheter was pulled down to the level of the bifurcation of the iliac arteries and an iliofemoral angiogram was performed. Catheter was directed over the bifurcation of the iliac arteries and placed in the right common femoral artery and a right lower extremity angiogram was performed. Catheter was advanced into the superficial femoral artery as far as possible and the remainder of the right lower extremity angiogram was performed. There was no intervention required. A Mynx closure device was used to close the arteriotomy in the left common femoral artery with an additional 10 minutes of adjunctive pressure for hemostasis. Dressings were then applied. Patient tolerated the procedure well. All instrument, sponge and needle counts were correct at the end of the case. There were no complications. Dr. Merlos was present for and directed the entire case. Patient was transferred to the holding area and subsequently discharged in stable condition. RADIOLOGIC SUPERVISION INTERPRETATION: The ultrasound was used to evaluate the left common femoral artery which was widely patent and easily compressible and free of thrombus with some calcium noted in the wall of the artery. Ultrasound was used to guide cannulation with real-time concurrent visualization of the entry of the needle into the artery. The angiogram portion of the case showed the aorta to be widely patent as well as the renal arteries, celiac and superior mesenteric arteries. The common iliac, external and internal iliac arteries bilaterally were widely patent as well as the common femoral arteries. The left proximal superficial femoral and profunda femoris arteries were widely patent. There was no visualization below the puncture site on the left side. The right lower extremity showed no significant disease with a widely patent common femoral, superficial femoral and profunda femoris arteries. The SFA showed minor luminal irregularities but was patent along its course into the popliteal artery with good tibioperoneal runoff into the foot and calf.
== END | disposition home or self-care (01) ==
LOC: M IRPRO 08:10
PROVIDERS: ATTEND Surgery Vascular Surgery
DX: L97.919 Non-pressure chronic ulcer of unspecified part of right lower leg with unspecified severity (principal); I26.99 Other pulmonary embolism without acute cor pulmonale; I87.2 Venous insufficiency (chronic) (peripheral)
CPT/HCPCS: 36247; 75625; 75716; 75774; 76937; 93880; 99152; C1760; C1769; C1887; C1894; G0269; J2250; J3010; Q9967

== ENCOUNTER → 2017-11-19 | Outpatient (REF) | payer MEDICARE, MEDICAID ==
[2017-11-19 20:35] LABS: FERRITIN 13 NG/ML (8-252); IRON (FE) 45 UG/DL (50-170); PERCENT SATURATION 10.7 % (13.2-45.0); TOTAL IRON BINDING CAPACITY 422 UG/DL (250-450)
[2017-11-19 20:55] LABS: VITAMIN B12 LEVEL 539 PG/ML (247-911)
[2017-11-21 08:06] LABS: ERYTHROPOIETIN 159.5 mIU/mL (2.6-18.5)
== END ==
LOC: M LAB REF 08:47
DX: D64.9 Anemia, unspecified (principal)
CPT/HCPCS: 83550

== ENCOUNTER → 2017-11-19 | Outpatient (REF) | payer MEDICARE, MEDICAID ==
[2017-11-19 21:01] LABS: ALBUMIN 3.8 GM/DL (3.2-5.2); ALKALINE PHOSPHATASE 87 U/L (45-117); ALT/SGPT 24 U/L (12-78); ANION GAP 2 MEQ/L (8-16); AST/SGOT 22 U/L (7-37); BILIRUBIN,TOTAL 0.2 MG/DL (0.2-1.0); BLOOD UREA NITROGEN 15 MG/DL (7-18); CALCIUM LEVEL 9.5 MG/DL (8.8-10.2); CARBON DIOXIDE LEVEL 37 MEQ/L (21-32); CHLORIDE LEVEL 100 MEQ/L (98-107); CREATININE FOR GFR 0.66 MG/DL (0.55-1.02); GLOMERULAR FILTRATION RATE > 60.0 (>45); GLUCOSE, FASTING 77 MG/DL (80-110); SODIUM LEVEL 139 MEQ/L (136-145)
[2017-11-19 21:03] LABS: ESTIMATED AVERAGE GLUCOSE 137 MG/DL (60-110); HEMOGLOBIN A1c 6.4 %; POTASSIUM SERUM 5.2 MEQ/L (3.5-5.1)
== END ==
LOC: M LAB REF 18:28
DX: E11.9 Type 2 diabetes mellitus without complications (principal)
CPT/HCPCS: 84443

== ENCOUNTER → 2017-12-15 | Outpatient (REF) | payer MEDICARE, MEDICAID ==
[2017-12-15 14:30] LABS: FERRITIN 12 NG/ML (8-252); IRON (FE) 27 UG/DL (50-170); PERCENT SATURATION 6.7 % (13.2-45.0); TOTAL IRON BINDING CAPACITY 405 UG/DL (250-450)
== END ==
LOC: M LAB REF 13:50
DX: D50.9 Iron deficiency anemia, unspecified (principal)
CPT/HCPCS: 83550

== ENCOUNTER → 2017-12-22 | Outpatient (REF) | payer MEDICARE, MEDICAID ==
[2017-12-22 14:18] LABS: FERRITIN 408 NG/ML (8-252); IRON (FE) 70 UG/DL (50-170); TOTAL IRON BINDING CAPACITY 350 UG/DL (250-450)
== END ==
LOC: M LAB REF 13:46
DX: D50.9 Iron deficiency anemia, unspecified (principal)
CPT/HCPCS: 83550

== ENCOUNTER 2018-01-11 20:54 | Inpatient (IN) | payer MEDICARE, MEDICAID ==
[2018-01-11] MEDS: METOPROLOL TART 25 MG TABLET PO (21:00)
[2018-01-11] MEDS: methylPREDNISolone INJ 125 MG/2 ML VIAL (J2930) IV (21:46)
[2018-01-11] MEDS: IPRATROPIUM 0.5MG/ALBUTEROL 2.5MG INH SOL UD 3ML (DUONEB)(J7620) NEB ×3 (21:48→21:55)
[2018-01-11 22:23] LABS: BASO % 0.7 % (0.0-1.0); EOS % 0.2 % (0.0-3.0); HEMATOCRIT 45.4 % (36.0-47.0); HEMOGLOBIN 13.8 g/dl (12.0-16.0); IMMATURE GRANULOCYTE % 0.2 % (0-3.0); LYMPH # 0.8 10^3/uL (1.5-4.5); LYMPH % 18.1 % (24.0-44.0); MEAN CORPUSCULAR HEMOGLOBIN 28.8 pg (27.0-33.0); MEAN CORPUSCULAR HGB CONC 30.4 g/dl (32.0-36.5); MEAN CORPUSCULAR VOLUME 94.6 fl (80.0-96.0); MONO # 0.5 10^3/uL (0.0-0.8); MONO % 10.8 % (0.0-5.0); NEUTROPHILS # 3.1 10^3/uL (1.8-7.7); PLATELET COUNT, AUTOMATED 253 10^3/uL (150-450); RED CELL DISTRIBUTION WIDTH 22.6 % (11.5-14.5); WHITE BLOOD COUNT 4.4 10^3/uL (4.0-10.0)
[2018-01-11 22:47] LABS: ANION GAP 4 MEQ/L (8-16); BLOOD UREA NITROGEN 13 MG/DL (7-18); CALCIUM LEVEL 8.7 MG/DL (8.8-10.2); CARBON DIOXIDE LEVEL 33 MEQ/L (21-32); CHLORIDE LEVEL 102 MEQ/L (98-107); CPK CREATINE PHOSPHOKINASE 68 U/L (26-192); CREATININE FOR GFR 0.67 MG/DL (0.55-1.30); GLOMERULAR FILTRATION RATE > 60.0 (>45); GLUCOSE, FASTING 95 MG/DL (70-100); MB/CK RELATIVE INDEX 1.47 (< OR =4); NT-PRO BNP 820 PG/ML (<125); POTASSIUM SERUM 4.9 MEQ/L (3.5-5.1); SODIUM LEVEL 139 MEQ/L (136-145); TROPONIN I < 0.02 NG/ML (< 0.10)
[2018-01-11 22:58] LABS: INFLUENZA A AMPLIFICATION POSITIVE (NEGATIVE); INFLUENZA B AMPLIFICATION NEGATIVE (NEGATIVE)
[2018-01-11] MEDS ORDERED: ISOVUE-370 76% 100ML VIAL (Q9967) As Ordered (22:58)
[2018-01-11 23:30] LABS: ABG BASE EXCESS 4.8 (-2.0-2.0); ABG HCO3 33.2 MEQ/L (22.0-26.0); ABG O2 SATURATION 86.3 % (95.0-99.0); ABG PARTIAL PRESSURE O2 51.7 mmHg (75.0-100.0); ABG STANDARD HCO3 28.5 MEQ/L (22.0-26.0); ABG TOTAL CO2 35.3 MEQ/L (23.0-31.0)
[2018-01-11 23:31] LABS: ABG PARTIAL PRESSURE CO2 67.5 mmHg (35.0-45.0)
[2018-01-12] MEDS: OSELTAMIVIR PHOSPHATE 75 MG CAP (TAMIFLU) PO ×3 (01:03→21:41)
[2018-01-12] MEDS ORDERED: GLUCOSE 4 GM CHEW TABLET PO (01:30)
[2018-01-12] MEDS ORDERED: GLUCAGON FOR INJ 1 MG VIAL (J1610) SC (01:30)
[2018-01-12] MEDS ORDERED: DEXTROSE 50% 50 ML SYRINGE IV (01:30)
[2018-01-12] MEDS ORDERED: NORCO, ANEXSIA 5/325MG TABLET (HYDROcodone/ACETAMINOPHEN) PO (01:45)
[2018-01-12] MEDS: NS 1,000 ML IV (04:04)
[2018-01-12] MEDS: CitaloPRAM (CeleXA) 20 MG TAB PO (04:04)
[2018-01-12] MEDS: ALBUTEROL SULFATE 2.5 MG/0.5 ML INH NEB SOLN NEB (04:09)
[2018-01-12 04:23] LABS: ABG BASE EXCESS 1.4 (-2.0-2.0); ABG HCO3 29.2 MEQ/L (22.0-26.0); ABG O2 SATURATION 88.8 % (95.0-99.0); ABG PARTIAL PRESSURE CO2 59.4 mmHg (35.0-45.0); ABG PARTIAL PRESSURE O2 61.7 mmHg (75.0-100.0); ABG STANDARD HCO3 25.5 MEQ/L (22.0-26.0); ABG pH (ARTERIAL) 7.309 UNITS (7.350-7.450)
[2018-01-12 04:38] LABS: INR 2.56; PROTHROMBIN TIME 28.5 SECONDS (12.4-14.5)
[2018-01-12] MEDS: methylPREDNISolone INJ 125 MG/2 ML VIAL (J2930) IV ×3 (06:12→21:40)
[2018-01-12] MEDS: HumaLOG INSULIN (NovoLOG) PER UNIT SC ×5 (06:12→21:00)
[2018-01-12 07:41] LABS: BEDSIDE GLUCOSE 176 MG/DL (80-115)
[2018-01-12] MEDS: IPRATROPIUM 0.5MG/ALBUTEROL 2.5MG INH SOL UD 3ML (DUONEB)(J7620) NEB ×4 (09:03→20:00)
[2018-01-12] MEDS: ADVAIR HFA 230/21MCG INHALER INH ×2 (09:03→20:58)
[2018-01-12] MEDS: PANTOPRAZOLE 40MG INJ (PROTONIX) (C9113) IV (10:07)
[2018-01-12] MEDS: METOPROLOL TART 25 MG TABLET PO ×2 (10:16→21:42)
[2018-01-12 12:09] LABS: BEDSIDE GLUCOSE 184 MG/DL (80-115)
[2018-01-12] MEDS: LOSARTAN 25 MG TAB PO (13:36)
[2018-01-12] MEDS: WARFARIN SOD 7.5 MG TAB PO (16:46)
[2018-01-12 16:51] LABS: BEDSIDE GLUCOSE 269 MG/DL (80-115)
[2018-01-12 21:50] LABS: BEDSIDE GLUCOSE 208 MG/DL (80-115)
[2018-01-13 04:45] LABS: HEMATOCRIT 45.1 % (36.0-47.0); HEMOGLOBIN 13.6 g/dl (12.0-16.0); LYMPH # 0.5 10^3/uL (1.5-4.5); LYMPH % 18.6 % (24.0-44.0); MEAN CORPUSCULAR HEMOGLOBIN 28.2 pg (27.0-33.0); MEAN CORPUSCULAR HGB CONC 30.2 g/dl (32.0-36.5); MEAN CORPUSCULAR VOLUME 93.6 fl (80.0-96.0); MONO # 0.2 10^3/uL (0.0-0.8); MONO % 7.6 % (0.0-5.0); NEUTROPHILS # 2.1 10^3/uL (1.8-7.7); NEUTROPHILS % 73.8 % (36.0-66.0); PLATELET COUNT, AUTOMATED 214 10^3/uL (150-450); RED BLOOD COUNT 4.82 10^6/uL (4.00-5.40); RED CELL DISTRIBUTION WIDTH 21.7 % (11.5-14.5); WHITE BLOOD COUNT 2.9 10^3/uL (4.0-10.0)
[2018-01-13 05:04] LABS: ALBUMIN 2.9 GM/DL (3.2-5.2); ANION GAP 5 MEQ/L (8-16); BLOOD UREA NITROGEN 26 MG/DL (7-18); CALCIUM LEVEL 9.4 MG/DL (8.8-10.2); CARBON DIOXIDE LEVEL 32 MEQ/L (21-32); CHLORIDE LEVEL 101 MEQ/L (98-107); GLOMERULAR FILTRATION RATE > 60.0 (>45); GLUCOSE, FASTING 211 MG/DL (70-100); PHOSPHORUS LEVEL 3.1 MG/DL (2.5-4.9); POTASSIUM SERUM 4.8 MEQ/L (3.5-5.1); SODIUM LEVEL 138 MEQ/L (136-145)
[2018-01-13] MEDS: methylPREDNISolone INJ 125 MG/2 ML VIAL (J2930) IV ×3 (05:55→22:46)
[2018-01-13] MEDS: ADVAIR HFA 230/21MCG INHALER INH ×2 (07:49→19:49)
[2018-01-13] MEDS: IPRATROPIUM 0.5MG/ALBUTEROL 2.5MG INH SOL UD 3ML (DUONEB)(J7620) NEB ×4 (07:50→19:48)
[2018-01-13] MEDS: OSELTAMIVIR PHOSPHATE 75 MG CAP (TAMIFLU) PO ×2 (08:00→20:51)
[2018-01-13] MEDS: HumaLOG INSULIN (NovoLOG) PER UNIT SC ×4 (08:01→20:51)
[2018-01-13] MEDS: LOSARTAN 25 MG TAB PO (08:01)
[2018-01-13] MEDS: PANTOPRAZOLE 40MG INJ (PROTONIX) (C9113) IV (08:02)
[2018-01-13] MEDS: METOPROLOL TART 12.5 MG PER 1/2 TAB PO ×2 (09:04→20:51)
[2018-01-13 11:51] LABS: BEDSIDE GLUCOSE 197 MG/DL (80-115)
[2018-01-13 16:39] LABS: BEDSIDE GLUCOSE 404 MG/DL (80-115)
[2018-01-13] MEDS: WARFARIN SOD 7.5 MG TAB PO (16:40)
[2018-01-13 21:03] LABS: BEDSIDE GLUCOSE 291 MG/DL (80-115)
[2018-01-14] MEDS: methylPREDNISolone INJ 125 MG/2 ML VIAL (J2930) IV (06:11)
[2018-01-14 06:43] LABS: HEMATOCRIT 45.3 % (36.0-47.0); HEMOGLOBIN 13.8 g/dl (12.0-16.0); MEAN CORPUSCULAR HEMOGLOBIN 28.6 pg (27.0-33.0); MEAN CORPUSCULAR HGB CONC 30.5 g/dl (32.0-36.5); MEAN CORPUSCULAR VOLUME 93.8 fl (80.0-96.0); PLATELET COUNT, AUTOMATED 206 10^3/uL (150-450); RED BLOOD COUNT 4.83 10^6/uL (4.00-5.40); RED CELL DISTRIBUTION WIDTH 21.2 % (11.5-14.5); WHITE BLOOD COUNT 4.9 10^3/uL (4.0-10.0)
[2018-01-14 07:18] LABS: ANION GAP 5 MEQ/L (8-16); BLOOD UREA NITROGEN 26 MG/DL (7-18); CALCIUM LEVEL 9.7 MG/DL (8.8-10.2); CARBON DIOXIDE LEVEL 29 MEQ/L (21-32); CHLORIDE LEVEL 103 MEQ/L (98-107); CREATININE FOR GFR 0.62 MG/DL (0.55-1.30); GLOMERULAR FILTRATION RATE > 60.0 (>45); GLUCOSE, FASTING 227 MG/DL (70-100); POTASSIUM SERUM 4.9 MEQ/L (3.5-5.1); SODIUM LEVEL 137 MEQ/L (136-145)
[2018-01-14] MEDS: ADVAIR HFA 230/21MCG INHALER INH ×2 (07:45→19:57)
[2018-01-14] MEDS: IPRATROPIUM 0.5MG/ALBUTEROL 2.5MG INH SOL UD 3ML (DUONEB)(J7620) NEB ×4 (07:48→19:56)
[2018-01-14] MEDS: HumaLOG INSULIN (NovoLOG) PER UNIT SC ×4 (08:06→20:39)
[2018-01-14] MEDS: OSELTAMIVIR PHOSPHATE 75 MG CAP (TAMIFLU) PO ×2 (08:06→20:39)
[2018-01-14] MEDS: PANTOPRAZOLE 40MG INJ (PROTONIX) (C9113) IV (08:06)
[2018-01-14] MEDS: METOPROLOL TART 12.5 MG PER 1/2 TAB PO ×2 (08:06→20:38)
[2018-01-14] MEDS: LOSARTAN 25 MG TAB PO (08:07)
[2018-01-14] MEDS: LEVEMIR (INSULIN DETEMIR) 1 UNITS/0.01ML SC (08:57)
[2018-01-14 10:24] LABS: INR 5.35
[2018-01-14 11:59] LABS: BEDSIDE GLUCOSE 246 MG/DL (80-115)
[2018-01-14] MEDS: methylPREDNISolone INJ 40 MG/1 ML VIAL (J2920) IV ×2 (13:50→20:39)
[2018-01-14 16:48] LABS: BEDSIDE GLUCOSE 240 MG/DL (80-115)
[2018-01-14 20:37] LABS: BEDSIDE GLUCOSE 326 MG/DL (80-115)
[2018-01-14] MEDS: **hydrALAZINE HCL** 25 MG TAB PO (21:36)
[2018-01-15 04:40] LABS: HEMATOCRIT 45.3 % (36.0-47.0); HEMOGLOBIN 13.9 g/dl (12.0-16.0); MEAN CORPUSCULAR HEMOGLOBIN 28.6 pg (27.0-33.0); MEAN CORPUSCULAR HGB CONC 30.7 g/dl (32.0-36.5); MEAN CORPUSCULAR VOLUME 93.2 fl (80.0-96.0); PLATELET COUNT, AUTOMATED 172 10^3/uL (150-450); RED BLOOD COUNT 4.86 10^6/uL (4.00-5.40); RED CELL DISTRIBUTION WIDTH 21.2 % (11.5-14.5); WHITE BLOOD COUNT 4.4 10^3/uL (4.0-10.0)
[2018-01-15 05:00] LABS: ANION GAP 7 MEQ/L (8-16); BLOOD UREA NITROGEN 22 MG/DL (7-18); CALCIUM LEVEL 9.5 MG/DL (8.8-10.2); CARBON DIOXIDE LEVEL 31 MEQ/L (21-32); CHLORIDE LEVEL 100 MEQ/L (98-107); CREATININE FOR GFR 0.62 MG/DL (0.55-1.30); GLOMERULAR FILTRATION RATE > 60.0 (>45); GLUCOSE, FASTING 211 MG/DL (70-100); POTASSIUM SERUM 4.5 MEQ/L (3.5-5.1); SODIUM LEVEL 138 MEQ/L (136-145)
[2018-01-15] MEDS: methylPREDNISolone INJ 40 MG/1 ML VIAL (J2920) IV (05:57)
[2018-01-15] MEDS: ADVAIR HFA 230/21MCG INHALER INH ×2 (07:45→20:25)
[2018-01-15] MEDS: IPRATROPIUM 0.5MG/ALBUTEROL 2.5MG INH SOL UD 3ML (DUONEB)(J7620) NEB ×4 (08:00→20:00)
[2018-01-15] MEDS: HumaLOG INSULIN (NovoLOG) PER UNIT SC ×4 (08:34→20:39)
[2018-01-15] MEDS: PANTOPRAZOLE 40MG INJ (PROTONIX) (C9113) IV (08:34)
[2018-01-15] MEDS: METOPROLOL TART 12.5 MG PER 1/2 TAB PO ×2 (08:36→20:47)
[2018-01-15] MEDS: OSELTAMIVIR PHOSPHATE 75 MG CAP (TAMIFLU) PO ×2 (08:36→20:47)
[2018-01-15] MEDS: hydrALAZINE INJ 20 MG/ML VIAL IV ×2 (08:40→13:50)
[2018-01-15] MEDS: LOSARTAN 50 MG TAB PO (08:40)
[2018-01-15] MEDS: amLODIPine 5 MG TAB PO ×2 (08:40→13:49)
[2018-01-15] MEDS: LEVEMIR (INSULIN DETEMIR) 1 UNITS/0.01ML SC (08:41)
[2018-01-15] MEDS ORDERED: ENOXAPARIN 40 MG/0.4 ML SYRINGE (J1650) SC (09:00)
[2018-01-15 10:27] LABS: INR 2.82; PROTHROMBIN TIME 30.9 SECONDS (12.4-14.5)
[2018-01-15 10:28] LABS: PARTIAL THROMBOPLASTIN TIME 35.4 SECONDS (26.8-37.9)
[2018-01-15 11:58] LABS: BEDSIDE GLUCOSE 174 MG/DL (80-115)
[2018-01-15 12:42] LABS: INR 2.76; PROTHROMBIN TIME 30.3 SECONDS (12.4-14.5)
[2018-01-15] MEDS: predniSONE 10 MG TAB PO (13:55)
[2018-01-15] MEDS: FUROSEMIDE 40 MG TAB PO (13:55)
[2018-01-15] MEDS: WARFARIN SOD 5 MG TAB PO (17:00)
[2018-01-15 17:02] LABS: BEDSIDE GLUCOSE 213 MG/DL (80-115)
[2018-01-15 20:45] LABS: BEDSIDE GLUCOSE 224 MG/DL (80-115)
[2018-01-16] MEDS: ACETAMINOPHEN 325 MG TAB PO (00:24)
[2018-01-16 04:36] LABS: HEMATOCRIT 45.6 % (36.0-47.0); HEMOGLOBIN 14.2 g/dl (12.0-16.0); MEAN CORPUSCULAR HEMOGLOBIN 28.2 pg (27.0-33.0); MEAN CORPUSCULAR HGB CONC 31.1 g/dl (32.0-36.5); MEAN CORPUSCULAR VOLUME 90.7 fl (80.0-96.0); PLATELET COUNT, AUTOMATED 184 10^3/uL (150-450); RED BLOOD COUNT 5.03 10^6/uL (4.00-5.40); RED CELL DISTRIBUTION WIDTH 20.9 % (11.5-14.5); WHITE BLOOD COUNT 5.4 10^3/uL (4.0-10.0)
[2018-01-16 04:49] LABS: INR 2.54; PROTHROMBIN TIME 28.4 SECONDS (12.4-14.5)
[2018-01-16 04:54] LABS: ANION GAP 5 MEQ/L (8-16); BLOOD UREA NITROGEN 19 MG/DL (7-18); CALCIUM LEVEL 9.8 MG/DL (8.8-10.2); CARBON DIOXIDE LEVEL 34 MEQ/L (21-32); CHLORIDE LEVEL 97 MEQ/L (98-107); CREATININE FOR GFR 0.54 MG/DL (0.55-1.30); GLOMERULAR FILTRATION RATE > 60.0 (>45); GLUCOSE, FASTING 114 MG/DL (70-100); POTASSIUM SERUM 3.8 MEQ/L (3.5-5.1); SODIUM LEVEL 136 MEQ/L (136-145)
[2018-01-16] MEDS: IPRATROPIUM 0.5MG/ALBUTEROL 2.5MG INH SOL UD 3ML (DUONEB)(J7620) NEB ×4 (07:21→20:00)
[2018-01-16] MEDS: ADVAIR HFA 230/21MCG INHALER INH ×2 (07:21→20:08)
[2018-01-16] MEDS: OSELTAMIVIR PHOSPHATE 75 MG CAP (TAMIFLU) PO (08:27)
[2018-01-16] MEDS: predniSONE 10 MG TAB PO (08:27)
[2018-01-16] MEDS: LEVEMIR (INSULIN DETEMIR) 1 UNITS/0.01ML SC (08:27)
[2018-01-16] MEDS: PANTOPRAZOLE 40MG INJ (PROTONIX) (C9113) IV (08:27)
[2018-01-16] MEDS: HumaLOG INSULIN (NovoLOG) PER UNIT SC ×4 (08:27→20:46)
[2018-01-16] MEDS: LOSARTAN 50 MG TAB PO (08:28)
[2018-01-16] MEDS: amLODIPine 10 MG TAB PO (08:28)
[2018-01-16] MEDS: METOPROLOL TART 12.5 MG PER 1/2 TAB PO ×2 (08:29→20:45)
[2018-01-16] MEDS ORDERED: SPIRONOLACTONE 50 MG TAB PO (09:00)
[2018-01-16 13:07] LABS: BEDSIDE GLUCOSE 120 MG/DL (80-115)
[2018-01-16] MEDS: WARFARIN SOD 5 MG TAB PO (16:48)
[2018-01-16 16:52] LABS: BEDSIDE GLUCOSE 334 MG/DL (80-115)
[2018-01-16 21:30] LABS: BEDSIDE GLUCOSE 323 MG/DL (80-115)
[2018-01-17 05:55] LABS: HEMATOCRIT 47.3 % (36.0-47.0); HEMOGLOBIN 14.8 g/dl (12.0-16.0); MEAN CORPUSCULAR HEMOGLOBIN 28.6 pg (27.0-33.0); MEAN CORPUSCULAR HGB CONC 31.3 g/dl (32.0-36.5); MEAN CORPUSCULAR VOLUME 91.5 fl (80.0-96.0); PLATELET COUNT, AUTOMATED 197 10^3/uL (150-450); RED BLOOD COUNT 5.17 10^6/uL (4.00-5.40); RED CELL DISTRIBUTION WIDTH 20.7 % (11.5-14.5); WHITE BLOOD COUNT 6.3 10^3/uL (4.0-10.0)
[2018-01-17 06:03] LABS: INR 2.46; PROTHROMBIN TIME 27.6 SECONDS (12.4-14.5)
[2018-01-17 06:25] LABS: ANION GAP 5 MEQ/L (8-16); BLOOD UREA NITROGEN 19 MG/DL (7-18); CALCIUM LEVEL 9.4 MG/DL (8.8-10.2); CARBON DIOXIDE LEVEL 35 MEQ/L (21-32); CHLORIDE LEVEL 99 MEQ/L (98-107); CREATININE FOR GFR 0.54 MG/DL (0.55-1.30); GLOMERULAR FILTRATION RATE > 60.0 (>45); GLUCOSE, FASTING 95 MG/DL (70-100); SODIUM LEVEL 139 MEQ/L (136-145)
[2018-01-17] MEDS: HumaLOG INSULIN (NovoLOG) PER UNIT SC ×2 (07:30→11:56)
[2018-01-17] MEDS: ADVAIR HFA 230/21MCG INHALER INH (07:33)
[2018-01-17] MEDS: IPRATROPIUM 0.5MG/ALBUTEROL 2.5MG INH SOL UD 3ML (DUONEB)(J7620) NEB ×3 (07:40→15:11)
[2018-01-17] MEDS: PANTOPRAZOLE 40MG INJ (PROTONIX) (C9113) IV (08:34)
[2018-01-17] MEDS: predniSONE 10 MG TAB PO (08:34)
[2018-01-17] MEDS: amLODIPine 10 MG TAB PO (08:35)
[2018-01-17] MEDS: LEVEMIR (INSULIN DETEMIR) 1 UNITS/0.01ML SC (08:35)
[2018-01-17] MEDS: METOPROLOL TART 12.5 MG PER 1/2 TAB PO (08:36)
[2018-01-17] MEDS: LOSARTAN 50 MG TAB PO (08:36)
[2018-01-17 11:34] LABS: BEDSIDE GLUCOSE 191 MG/DL (80-115)
== END 2018-01-17 16:57 | disposition home or self-care (01) | DRG 193 ==
LOC: M MSPAV 01-16 17:18 → M ED INP 01-12 01:21 → M ICU 01-12 03:46 → M ED 20:54
PROC: 5A09457 Assistance with Respiratory Ventilation, 24-96 Consecutive Hours, Continuous Positive Airway Pressure (ICD-10-PCS; principal; 2018-01-12)
DX: J10.1 Influenza due to other identified influenza virus with other respiratory manifestations (principal); J96.21 Acute and chronic respiratory failure with hypoxia; J44.1 Chronic obstructive pulmonary disease with (acute) exacerbation; I50.32 Chronic diastolic (congestive) heart failure; E11.9 Type 2 diabetes mellitus without complications; F17.210 Nicotine dependence, cigarettes, uncomplicated; E78.00 Pure hypercholesterolemia, unspecified; I11.0 Hypertensive heart disease with heart failure; G47.33 Obstructive sleep apnea (adult) (pediatric); K21.9 Gastro-esophageal reflux disease without esophagitis; D64.9 Anemia, unspecified; I87.2 Venous insufficiency (chronic) (peripheral); M54.5 Low back pain; F32.9 Major depressive disorder, single episode, unspecified; E04.1 Nontoxic single thyroid nodule; R00.1 Bradycardia, unspecified; J30.2 Other seasonal allergic rhinitis; Z99.81 Dependence on supplemental oxygen; Z86.718 Personal history of other venous thrombosis and embolism; Z91.040 Latex allergy status; Z88.1 Allergy status to other antibiotic agents; Z88.8 Allergy status to other drugs, medicaments and biological substances; Z79.84 Long term (current) use of oral hypoglycemic drugs; Z79.01 Long term (current) use of anticoagulants; Z79.899 Other long term (current) drug therapy

== ENCOUNTER → 2018-01-19 | Outpatient (REF) | payer MEDICARE, MEDICAID ==
[2018-01-19 14:10] LABS: FERRITIN 341 NG/ML (8-252); IRON (FE) 143 UG/DL (50-170); PERCENT SATURATION 57.7 % (13.2-45.0); TOTAL IRON BINDING CAPACITY 248 UG/DL (250-450)
== END ==
LOC: M LAB REF 13:29
DX: D64.9 Anemia, unspecified (principal)
CPT/HCPCS: 83550

== ENCOUNTER → 2018-06-14 | Outpatient (REF) | payer MEDICARE, MEDICAID ==
[2018-06-14 13:57] LABS: FERRITIN 30 NG/ML (8-252); IRON (FE) 53 UG/DL (50-170); PERCENT SATURATION 15.2 % (13.2-45.0); TOTAL IRON BINDING CAPACITY 349 UG/DL (250-450)
== END ==
LOC: M LAB REF 13:02
DX: Z00.00 Encounter for general adult medical examination without abnormal findings (principal); D50.9 Iron deficiency anemia, unspecified
CPT/HCPCS: 83550

== ENCOUNTER 2018-11-10 18:42 | Inpatient (IN) | payer MEDICARE, MEDICAID ==
[~2018-11-10] VITALS: Ht 152.4 cm; Wt 87.4 kg
[~2018-11-10 18:42] MED LIST changes: +ACET-683 PO; -ACET1TAB17 PO; +ACET1TAB55 PO; -DOXY-278 PO; +DOXY-350 PO; -GABA600T PO; +GABA600T4 PO; -HEPARIN 1,000 UNITS/ML 10ML VIAL (FOR RADIOLOGY& DIALYSIS ONLY) As Ordered ONE; +IPRA0.00 INH; +IPRA0.00 NEB; -IPRASOL4 INH; -IPRASOL4 NEB; -ISOVUE-300 61% 50ML VIAL (Q9967) As Ordered ONE; +LOSA25TA14 PO; -LOSA25TA8 PO; -MIDAZOLAM INJ 2 MG/2 ML VIAL (J2250) As Ordered ONE; +NICO21DI34 TD; -NICODIS TD; +NITR4TASL SL; +OXYC10TA3 PO; -OXYC1TAB16 PO; -PERCOCET 5MG/325MG TAB As Ordered ONE; -SPIR50TA2 PO; +SPIR50TA4 PO; +WARF-23 PO; -fentaNYL 100 MCG/2 ML INJECTION (J3010) As Ordered ONE
[2018-11-10] MEDS ORDERED: methylPREDNISolone INJ 125 MG/2 ML VIAL (J2930) IV ONE (19:00)
[2018-11-10] MEDS ORDERED: IPRATROPIUM 0.5MG/ALBUTEROL 2.5MG INH SOL UD 3ML (DUONEB)(J7620) NEB PRN ×2 (19:00→23:45)
[2018-11-10 19:10] LABS: BASO % 0.6 % (0.0-1.0); EOS # 0.1 10^3/uL (0.0-0.50); EOS % 1.6 % (0.0-3.0); HEMATOCRIT 54.3 % (36.0-47.0); HEMOGLOBIN 16.4 g/dl (12.0-15.5); LYMPH # 1.6 10^3/uL (1.5-4.5); LYMPH % 22.5 % (24.0-44.0); MEAN CORPUSCULAR HEMOGLOBIN 28.7 pg (27.0-33.0); MEAN CORPUSCULAR HGB CONC 30.2 g/dl (32.0-36.5); MEAN CORPUSCULAR VOLUME 95.1 fl (80.0-96.0); MONO # 0.5 10^3/uL (0.0-0.8); MONO % 7.7 % (0.0-5.0); NEUTROPHILS # 4.7 10^3/uL (1.8-7.7); NEUTROPHILS % 67.3 % (36.0-66.0); PLATELET COUNT, AUTOMATED 323 10^3/uL (150-450); RED BLOOD COUNT 5.71 10^6/uL (4.00-5.40)
[2018-11-10 19:22] LABS: ABG BASE EXCESS 2.2 (-2.0-2.0); ABG HCO3 29.7 MEQ/L (22.0-26.0); ABG O2 SATURATION 94.5 % (95.0-99.0); ABG PARTIAL PRESSURE CO2 57.4 mmHg (35.0-45.0); ABG STANDARD HCO3 26.3 MEQ/L (22.0-26.0); ABG TOTAL CO2 31.5 MEQ/L (23.0-31.0); ABG pH (ARTERIAL) 7.332 UNITS (7.350-7.450)
[2018-11-10 19:32] LABS: BLOOD UREA NITROGEN 9 MG/DL (7-18); CALCIUM LEVEL 9.4 MG/DL (8.8-10.2); CARBON DIOXIDE LEVEL 33 MEQ/L (21-32); CHLORIDE LEVEL 101 MEQ/L (98-107); CPK CREATINE PHOSPHOKINASE 58 U/L (26-192); CREATININE FOR GFR 0.68 MG/DL (0.55-1.30); GLOMERULAR FILTRATION RATE > 60.0 (>45); GLUCOSE, FASTING 86 MG/DL (70-100); MB/CK RELATIVE INDEX 3.97 (< OR =4); POTASSIUM SERUM 4.6 MEQ/L (3.5-5.1); SODIUM LEVEL 137 MEQ/L (136-145); TROPONIN I < 0.02 NG/ML (< 0.10)
[2018-11-10] MEDS ORDERED: FUROSEMIDE 100 MG/10 ML VIAL (J1940) IV ONE (19:45)
--- NOTE | 2018-11-10 19:54 | REP ---
Portable chest x-ray: Single view: History: Dyspnea and cough. Comparison chest x-ray: January 11, 2018. Findings: EKG monitoring electrodes and oxygen delivery tubing are seen. Mild cardiomegaly is observed. Pulmonary vasculature is cephalized and somewhat congested. There is no evidence of pleural effusion. There is no evidence of diffuse pulmonary edema. There are some increased markings in the left mid lung zone, however and a subtle infiltrate is suspected. Impression: Cardiomegaly with vascular congestion and cephalization. Subtle infiltrate suspected left midlung zone. Electronically Signed by Marcio Robles MD 11/11/2018 07:27 A
[2018-11-10 20:22] LABS: NT-PRO BNP 2738 PG/ML (<125)
--- NOTE | 2018-11-10 20:27 | ECGEPIP ---
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
[2018-11-10] MEDS ORDERED: IPRA0.00 INH (22:06)
[2018-11-10] MEDS ORDERED: WARF-23 PO (22:06)
[2018-11-10] MEDS ORDERED: METOPROLOL TART 25 MG TABLET PO ONE (22:45)
[2018-11-11] VITALS (9 sets, daily range): BP systolic 135–195; BP diastolic 62–104
[2018-11-11] MEDS ORDERED: GLUCOSE 4 GM CHEW TABLET PO PRN
[2018-11-11] MEDS ORDERED: GLUCAGON FOR INJ 1 MG VIAL (J1610) SC PRN
[2018-11-11] MEDS ORDERED: DEXTROSE 50% 50 ML SYRINGE IV PRN
[2018-11-11] MEDS ORDERED: hydrALAZINE INJ 20 MG/ML VIAL IV ONE
[2018-11-11 00:11] LABS: INR 1.93; PROTHROMBIN TIME 22.4 SECONDS (12.1-14.4)
--- NOTE | 2018-11-11 00:15 | HPEPDOC ---
[facility] Medical History & Physical Date of Admission Nov 11, 2018 Primary Care Physician: LORI GARCIA MD [facility] Attending Physician: NAHID KWAN MD History and Physical PRIMARY CARE PROVIDER: Dr. Garcia ATTENDING: Dr. Kwan CHIEF COMPLAINT: Dyspnea CODE STATUS:Patient is a full code. HISTORY OF PRESENT ILLNESS: Patient is a 63-year-old female with past medical history of COPD on 2 L home oxygen presenting with a month of progressively worsening shortness of breath. She is accompanied by her daughter who states they were at [employer] today and after walking out of the bathroom her mother was having difficulty breathing and her lips and the skin around her nose were blue colored which prompted them to go to the emergency department. She states her shortness of breath has coincided with subjective fevers at night but not night sweats, a yellow productive cough, and intermittent chest pressure on inspiration. She also states that upon standing she feels lightheaded and dizzy. Prior to my seeing her in the emergency department when she stood up to use the restroom she felt like she was about to pass out. She states she also has a history of chronic diffuse abdominal pain that has apparently been worked up in the past, they both believe that it is her gallbladder acting up, but no surgeon will operate on her. She admits to dark tarry stools but also states she receives biannual iron infusions because she is chronically anemic. Finally she admits to brown, watery, non-bloody loose stools every hour for the last month. PAST MEDICAL HISTORY: COPD on 2 L of oxygen at home Hypertension Diabetes 60% occlusion of bilateral carotid arteries History of DVT on chronic anticoagulation (warfarin) Grade 2 diastolic dysfunction (last echo 01/2018) GERD History of a TIA Anemia Depression Questionable history of obstructive sleep apnea Dyslipidemia PAST SURGICAL HISTORY: Cataracts Skin graft Partial hysterectomy SOCIAL HISTORY: Currently smokes 1 pack per day, has smoked since she was 20 years old. Denies any illicit drug use including marijuana, heroin, cocaine, PCP. Admits to oc casional alcohol use around the holidays. FAMILY HISTORY: Noncontributory ALLERGIES: Please see below. REVIEW OF SYSTEMS: GENERAL: Admits to subjective night fevers (not night sweats), denies chills, recent unexpected weight change, hemoptysis HEENT: Admits to occasional occipital headache, dizziness, vision changes, hearing loss, sore throat CARDIOVASCULAR: Denies chest pain,palpitations, orthopnea RESPIRATORY: See HPI GASTROINTESTINAL: denies nausea, vomiting, constipation, bloody stool. Admits to diarrhea, diffuse chronic abdominal pain unrelieved by bowel movements. Also admits to stool incontinence on coughing or sneezing. GENITOURINARY: Admits to overflow incontinence. Wears depends chronically. MUSCULOSKELETAL: Denies muscle/joint pain, weakness, stiffness NEUROLOGICAL: Denies any numbness/tingling, focal weakness, or syncope HOME MEDICATIONS: Please see below. PHYSICAL EXAMINATION: Vitals: (see below) General: No acute distress, laying comfortably in bed. HEENT: Normocephalic, atraumatic. EOMI. Moist mucous membranes. Neck: No JVD or lymphadenopathy Cardiac: RRR, normal S1 and S2. No murmurs, gallops, rubs. Pulm: Clear to auscultation b/l. Expiratory wheezes and inspiratory crackles present on exam. No rhonchi appreciated. Abd: Obese abdomen. Belly is soft, mildly diffuse tenderness outpatient, moderately distended, no guarding, rebound tenderness, or rigidity. BSx4. Ext: 2+ pitting edema bilaterally with chronic venous stasis changes in bilateral lower extremities. Both extremities below the knee are erythematous, dry, cracked. Neuro: CN 3-12 grossly intact. Sensation to fine touch intact. LABORATORY DATA: See below. IMAGIN11/10/18 chest x-ray: Cardiomegaly with vascular congestion and cephalization. Subtle infiltrate suspected left midlung zone. MICROBIOLOGY: Please see below. ASSESSMENT/PLAN: Patient is a 63-year-old female with multiple comorbidities presenting with a CHF exacerbation complicated by COPD and possible right middle lobe pneumonia. #. CHF exacerbation: Echo done in January 2018 demonstrates grade 2 diastolic dysfunction with elevated central venous pressure and moderate to severe pulmonary hypertension. Patient put out 1600 mL of fluid in the emergency department following IV Lasix. We will continue IV Lasix daily Troponins negative 2 Strict I/O's, daily weights #. COPD exacerbation We will start the patient on Solu-Medrol every 4 hours with scheduled and prn DuoNeb's Oxygen titration measures ordered Continue home medication ABG showing respiratory acidosis #. Right middle lobe infiltrate Starting patient on IV Levaquin Blood cultures, sputum cultures and Gram stain pending. #. Hypertension Continue home medications Patient washypertensive in the ED and was given 1 time dose of po metoprolol that did not lower BP, we will give one-time dose of IV hydralazine, and if necessary will give additional 25 mg of po losartan #. Presyncopal event Obtaining orthostatic vital signs #. Diarrhea Patient admits that she has a history of overflow incontinence, but states that in addition to urinating on coughing or sneezing, she will also have diarrhea on coughing or sneezing. She wears depends chronically. GI panel pending C. difficile PCR pending. #. Diabetes On sliding scale insulin #. History of DVT on Coumadin Continue home Coumadin schedule Monitoring daily INRs #. Tobacco abuse Patient is NOT interested in nicotine replacement #. Depression Continue home medications #. History of Anemia Continue to monitor #. GERD Patient is on pantoprazole #. Carotid artery stenosis/history of TIA Continue with statin -DVT prophy: Continue Coumadin The patient will be admitted to PCU under Dr. Ibarra's service beginning tomorrow at 7 AM. Vital Signs Vital Signs Date Time Temp Pulse Resp B/P (MAP) Pulse Ox O2 Delivery O2 Flow Rate FiO2 11/10/18 23:25 77 20 164/72 (102) 95 Nasal Cannula 5.0 11/10/18 18:46 97.4 Laboratory Data Labs 24H Laboratory Tests 2 11/10/18 18:57: Immature Granulocyte % (Auto) 0.3, White Blood Count 7.0, Red Blood Count 5.71H, Hemoglobin 16.4H, Hematocrit 54.3H, Mean Corpuscular Volume 95.1, Mean Corpuscular Hemoglobin 28.7, Mean Corpuscular Hemoglobin Concent 30.2L, Red Cell Distribution Width 22.9H, Platelet Count 323, Neutrophils (%) (Auto) 67.3H, Lymphocytes (%) (Auto) 22.5L, Monocytes (%) (Auto) 7.7H, Eosinophils (%) (Auto) 1.6, Basophils (%) (Auto) 0.6, Neutrophils # (Auto) 4.7, Lymphocytes # (Auto) 1.6, Monocytes # (Auto) 0.5, Eosinophils # (Auto) 0.1, Basophils # (Auto) 0.0, Nucleated Red Blood Cells % (auto) 0.0, Anion Gap 3L, Glomerular Filtration Rate > 60.0, Blood Urea Nitrogen 9, Creatinine 0.68, Sodium Level 137, Potassium Level 4.6, Chloride Level 101, Carbon Dioxide Level 33H, Calcium Level 9.4, Total Creatine Kinase 58, Creatine Kinase MB 2.0, Creatine Kinase MB Relative Index 3.97, Troponin I < 0.02, LK-Cax-L-Type Natriuretic Peptide 2738H 11/10/18 19:15: Blood Gas Bicarbonate Standard 26.3H, Arterial Blood pH 7.332L, Arterial Blood Partial Pressure CO2 57.4H, Arterial Blood Partial Pressure O2 73.0L, Arterial Blood Total CO2 31.5H, Arterial Blood HCO3 29.7H, Arterial Blood Base Excess 2.2H, Arterial Blood Oxygen Saturation 94.5L CBC/BMP Laboratory Tests 11/10/18 18:57 Red Blood Count 5.71 H, Mean Corpuscular Volume 95.1, Mean Corpuscular Hemoglobin 28.7, Mean Corpuscular Hemoglobin Concent 30.2 L, Red Cell Distribution Width 22.9 H, Neutrophils (%) (Auto) 67.3 H, Lymphocytes (%) (Auto) 22.5 L, Monocytes (%) (Auto) 7.7 H, Eosinophils (%) (Auto) 1.6, Basophils (%) (Auto) 0.6, Neutrophils # (Auto) 4.7, Lymphocytes # (Auto) 1.6, Monocytes # (Auto) 0.5, Eosinophils # (Auto) 0.1, Basophils # (Auto) 0.0, Calcium Level 9.4, Total Creatine Kinase 58 Home Medications Scheduled (Dexilant) 60 Mg Cap, 60 MG PO DAILY (Tab-A-Nancy) 1 Tab Tab, 1 TAB PO DAILY Citalopram Hydrobromide (Citalopram Hydrobromide) 20 Mg Tab, 20 MG PO DAILY Diphenhydramine HCl (Benadryl Allergy) 25 Mg Cap, 25 MG PO QHS Fluticasone/Vilanterol (Breo Ellipta 100-25 Mcg/INH) 1 Inh Inh, 1 PUFF INH QHS Glipizide (Glipizide) 10 Mg Tab, 10 MG PO DAILY Losartan Potassium (Losartan Potassium) 25 Mg Tab, 25 MG PO DAILY Metformin Hydrochloride (Metformin HCl) 500 Mg Tab, 500 MG PO BID Metoprolol Tartrate (Metoprolol Tartrate) 25 Mg Tab, 25 MG PO BID Mirtazapine (Mirtazapine) 30 Mg Tab, 30 MG PO QHS Simvastatin (Simvastatin) 20 Mg Tab, 20 MG PO QHS Warfarin Sod (Warfarin Sodium) 5 Mg Tab, 5 MG PO Q2D Warfarin Sod (Warfarin Sodium) 5 Mg Tab, 7.5 MG PO Q2D Scheduled PRN Acetaminophen (Acetaminophen Extra Stren) 500 Mg Tab, 1,000 MG PO Q6H PRN for PAIN Albuterol/Ipratropium (Ipratropium [place]/Albut 0.5-2.5 (3) mg/3Ml) 1 Yoni Yoni, 1 YONI INH Q6H PRN for SHORTNESS OF BREATH Nitroglycerin (Nitrostat) 0.4 Mg Subl, 0.4 MG SL NITRO PRN for CHEST PAIN Allergies Coded Allergies: Latex (Verified Allergy, Unknown, 02/07/13) Erythromycin (Verified Adverse Reaction, Mild, VOMITTING, 02/07/13) Bupropion (Verified Adverse Reaction, Unknown, "violent", 04/10/17) GME ATTESTATION GME ATTESTATION My faculty preceptor for this patient encounter was physically present during the encounter and was fully available. All aspects of the patient interview, examination, medical decision making process, and medical care plan development were reviewed and approved by the faculty preceptor. The faculty preceptor is aware and concurs with the plan as stated in the body of this note and will attest to such by his/her cosignature. ARTIE GARCIA DO Nov 11, 2018 00:15
[2018-11-11] MEDS: PANTOPRAZOLE 40MG INJ (PROTONIX) (C9113) IV SCH (01:29)
[2018-11-11] MEDS: methylPREDNISolone INJ 125 MG/2 ML VIAL (J2930) IV SCH ×3 (01:42→14:24)
[2018-11-11] MEDS: LevoFLOXacin IV 750 MG in APPROPRIATE DILUENT 1 EA IV SCH (01:44)
[2018-11-11] MEDS ORDERED: methylPREDNISolone INJ 125 MG/2 ML VIAL (J2930) IV SCH (02:00)
[2018-11-11] MEDS: ADVAIR HFA 45/21MCG INHALER INH SCH ×3 (03:00→20:18)
[2018-11-11] MEDS: IPRATROPIUM 0.5MG/ALBUTEROL 2.5MG INH SOL UD 3ML (DUONEB)(J7620) NEB SCH ×7 (03:01→23:33)
[2018-11-11 04:50] LABS: HEMATOCRIT 51.3 % (36.0-47.0); HEMOGLOBIN 15.4 g/dl (12.0-15.5); MEAN CORPUSCULAR HEMOGLOBIN 27.8 pg (27.0-33.0); MEAN CORPUSCULAR VOLUME 92.8 fl (80.0-96.0); PLATELET COUNT, AUTOMATED 289 10^3/uL (150-450); RED BLOOD COUNT 5.53 10^6/uL (4.00-5.40); WHITE BLOOD COUNT 5.4 10^3/uL (4.0-10.0)
[2018-11-11 05:08] LABS: BLOOD UREA NITROGEN 12 MG/DL (7-18); CALCIUM LEVEL 8.8 MG/DL (8.8-10.2); CARBON DIOXIDE LEVEL 34 MEQ/L (21-32); CHLORIDE LEVEL 98 MEQ/L (98-107); CREATININE FOR GFR 0.68 MG/DL (0.55-1.30); GLOMERULAR FILTRATION RATE > 60.0 (>45); GLUCOSE, FASTING 246 MG/DL (70-100); POTASSIUM SERUM 4.8 MEQ/L (3.5-5.1); SODIUM LEVEL 137 MEQ/L (136-145)
[2018-11-11] MEDS ORDERED: glipiZIDE (GLUCOTROL) 5 MG TAB PO SCH (07:30)
[2018-11-11] MEDS: HumaLOG INSULIN (NovoLOG) PER UNIT SC SCH ×4 (08:13→20:48)
[2018-11-11] MEDS: CitaloPRAM (CeleXA) 20 MG TAB PO SCH (08:14)
[2018-11-11] MEDS: glipiZIDE (GLUCOTROL) 5 MG TAB PO SCH ×2 (08:14→14:24)
[2018-11-11] MEDS: LOSARTAN 25 MG TAB PO SCH (08:14)
[2018-11-11] MEDS: METOPROLOL TART 25 MG TABLET PO SCH ×2 (08:15→20:47)
[2018-11-11] MEDS ORDERED: FLUTICASONE HFA 110 MCG 12 GM INHALER (FLOVENT) INH SCH (09:00)
[2018-11-11] MEDS ORDERED: FUROSEMIDE 40 MG/4 ML VIAL (J1940) IV SCH (09:00)
[2018-11-11] MEDS: WARFARIN SOD 7.5 MG TAB PO SCH (16:36)
[2018-11-11] MEDS: FUROSEMIDE 40 MG/4 ML VIAL (J1940) IV SCH (16:36)
--- NOTE | 2018-11-11 16:38 | IPN ---
DATE: 11/11/2018 SUBJECTIVE: The patient is seen and examined in the room today. The patient is still complaining about shortness of breath. The patient denies any fever or chills. The patient does not really complain about increased cough, wheeze. The patient denies any sputum color changes. At baseline, the patient only uses two liters of oxygen. OBJECTIVE: VITAL SIGNS: Temperature 97.4, pulse is 72, respirations 19, blood pressure 153/69, pulse oximetry is 91% with 5 liters nasal cannula. GENERAL: No sign of acute distress. The patient is alert and awake. HEENT: Normocephalic, atraumatic. Extraocular motor grossly intact. CARDIOVASCULAR: Positive S1, S2, regular rate. LUNGS: Clear to auscultation bilaterally. There are some mild expiratory wheezes near the end of the expiratory phase. Positive crackles appreciated. ABDOMEN: Soft, nontender, nondistended. EXTREMITIES: The patient was noted to have bilateral chronic venous stasis changes on bilateral lower extremities. There is some mild discomfort to palpation. Patient also noted to have pedal edema bilaterally. LABORATORY DATA: WBC 5.4, hemoglobin 15.4, hematocrit is 51.3, platelet count is 289. Sodium 137, potassium 4.8, chloride is 98, carbon dioxide 34, BUN 12, creatinine 0.68, GFR greater than 60, fasting glucose 246, calcium is 8.8. IMAGING STUDIES: Chest x-ray demonstrates cardiomegaly with vascular congestion with cephalization. Subtle infiltrate suspected in the left mid lung zone. ASSESSMENT AND PLAN: 1. Acute on chronic hypoxic respiratory distress. At her baseline, the patient has chronic obstructive pulmonary disease (COPD). The patient was using two liters of oxygen. The patient came in here with acute worsening of shortness of breath. Currently, the patient is on five liters nasal cannula. Imaging studies and physical exam demonstrates the patient does have signs of fluid overload. The patient is on intravenous (IV) Lasix. The patient had an echocardiogram performed in January 2018, demonstrated grade 2 diastolic dysfunction and moderate to severe pulmonary hypertension. 2. Right middle lobe infiltrate. Follow with a culture. Empirically, the patient was started on Levaquin. 3. Chronic obstructive pulmonary disease. The patient does have some expiratory wheezes. Will continue to use breathing treatment as needed. 4. Currently, patient being treated for congestive heart failure (CHF) exacerbation. Continue to monitor the patient's oxygen requirement. 5. History of deep vein thrombosis (DVT). On chronic anticoagulation. Continue Coumadin. 6. Diabetes. On sliding scale. 7. Depression. Continue home medication. 8. History of transient ischemic attack (TIA). On Zocor. 9. Deep vein thrombosis (DVT) prophylaxis. On warfarin.
[2018-11-11] MEDS: MIRTAZAPINE 15 MG TAB PO SCH (20:47)
[2018-11-11] MEDS: SIMVASTATIN 20 MG TAB PO SCH (20:47)
[2018-11-11] MEDS: diphenhydrAMINE 25 MG CAP PO SCH (20:48)
[2018-11-11] MEDS: predniSONE 20 MG TAB PO SCH (20:48)
[2018-11-12] VITALS (7 sets, daily range): BP systolic 134–184; BP diastolic 58–82
[2018-11-12] MEDS: LevoFLOXacin IV 750 MG in APPROPRIATE DILUENT 1 EA IV SCH (00:33)
[2018-11-12] MEDS: PANTOPRAZOLE 40MG INJ (PROTONIX) (C9113) IV SCH (00:33)
[2018-11-12] MEDS: IPRATROPIUM 0.5MG/ALBUTEROL 2.5MG INH SOL UD 3ML (DUONEB)(J7620) NEB SCH ×5 (04:00→20:00)
[2018-11-12 05:09] LABS: HEMATOCRIT 50.3 % (36.0-47.0); HEMOGLOBIN 15.3 g/dl (12.0-15.5); MEAN CORPUSCULAR HEMOGLOBIN 27.8 pg (27.0-33.0); MEAN CORPUSCULAR HGB CONC 30.4 g/dl (32.0-36.5); MEAN CORPUSCULAR VOLUME 91.5 fl (80.0-96.0); PLATELET COUNT, AUTOMATED 304 10^3/uL (150-450)
[2018-11-12 05:18] LABS: INR 1.97; PROTHROMBIN TIME 22.8 SECONDS (12.1-14.4)
[2018-11-12 05:38] LABS: BLOOD UREA NITROGEN 21 MG/DL (7-18); CALCIUM LEVEL 9.5 MG/DL (8.8-10.2); CARBON DIOXIDE LEVEL 34 MEQ/L (21-32); CHLORIDE LEVEL 99 MEQ/L (98-107); CREATININE FOR GFR 0.81 MG/DL (0.55-1.30); GLOMERULAR FILTRATION RATE > 60.0 (>45); GLUCOSE, FASTING 211 MG/DL (70-100); POTASSIUM SERUM 4.2 MEQ/L (3.5-5.1); SODIUM LEVEL 138 MEQ/L (136-145)
[2018-11-12] MEDS: HumaLOG INSULIN (NovoLOG) PER UNIT SC SCH ×5 (07:30→21:00)
[2018-11-12] MEDS: ADVAIR HFA 45/21MCG INHALER INH SCH ×2 (07:41→21:09)
[2018-11-12] MEDS: LOSARTAN 25 MG TAB PO SCH (08:03)
[2018-11-12] MEDS: ACETAMINOPHEN TAB 650MG DOSE (2X325MG) PO PRN ×2 (08:03→18:35)
[2018-11-12] MEDS: predniSONE 20 MG TAB PO SCH ×2 (08:03→20:32)
[2018-11-12] MEDS: METOPROLOL TART 25 MG TABLET PO SCH ×2 (08:04→20:32)
[2018-11-12] MEDS: FUROSEMIDE 40 MG/4 ML VIAL (J1940) IV SCH ×3 (08:04→16:04)
[2018-11-12] MEDS: CitaloPRAM (CeleXA) 20 MG TAB PO SCH (08:04)
[2018-11-12] MEDS ORDERED: SLF 3 ML SYR IV PRN (11:15)
[2018-11-12] MEDS: SLF 3 ML SYR IV SCH ×2 (13:48→22:00)
[2018-11-12] MEDS: WARFARIN SOD 5 MG TAB PO SCH (16:04)
--- NOTE | 2018-11-12 19:05 | IPNPDOC ---
Text Note Date of Service The patient was seen on 11/12/18. NOTE SUBJECTIVE: The patient is seen and examined in the room today. The patient feels her breathing is improving very slowly. Patient has noticed significant improvement of her lower extremity swelling. The patient denies any fever or chills. The patient does not really complain about increased cough, wheeze. OBJECTIVE: VITAL SIGNS: Listed below. GENERAL: No sign of acute distress. The patient is alert and awake. HEENT: Normocephalic, atraumatic. Extraocular motor grossly intact. CARDIOVASCULAR: Positive S1, S2, regular rate. LUNGS: Clear to auscultation bilaterally. There are some mild expiratory wheezes near the end of the expiratory phase. Positive crackles appreciated. ABDOMEN: Soft, nontender, nondistended. EXTREMITIES: The patient was noted to have bilateral chronic venous stasis changes on bilateral lower extremities. LABORATORY DATA: Listed below. IMAGING STUDIES: Chest x-ray demonstrates cardiomegaly with vascular congestion with cephalization. Subtle infiltrate suspected in the left mid lung zone. ASSESSMENT AND PLAN: #. Acute on chronic hypoxic respiratory distress. - At her baseline, the patient has chronic obstructive pulmonary disease (COPD) and severe pulmonary hypertension. The patient was using two liters of oxygen. - Patient demonstrates sign of fluid overload. The patient is on intravenous (IV) Lasix. The patient had an echocardiogram performed in January 2018, demonstrated grade 2 diastolic dysfunction and moderate to severe pulmonary hypertension. #. Left middle lobe infiltrate. - Culture ordered but patient has not provided sample. Empirically, the patient was started on Levaquin. #. Chronic obstructive pulmonary disease. The patient does have some expiratory wheezes. Will continue to use breathing treatment as needed. #. Currently, patient being treated for congestive heart failure (CHF) exacerbation. Continue to monitor the patient's oxygen requirement. #. History of deep vein thrombosis (DVT). On chronic anticoagulation. Continue Coumadin. #. Diabetes. On sliding scale. #. Depression. Continue home medication. #. History of transient ischemic attack (TIA). On Zocor. #. Deep vein thrombosis (DVT) prophylaxis. On warfarin. VS,Fishbone, I+O VS, Fishbone, I+O Laboratory Tests 11/12/18 04:54 Red Blood Count 5.50 H, Mean Corpuscular Volume 91.5, Mean Corpuscular Hemoglobin 27.8, Mean Corpuscular Hemoglobin Concent 30.4 L, Red Cell Distribution Width 22.1 H, Calcium Level 9.5 Vital Signs Date Time Temp Pulse Resp B/P (MAP) Pulse Ox O2 Delivery O2 Flow Rate FiO2 11/12/18 18:34 94 Nasal Cannula 3.0 11/12/18 16:00 97.7 81 18 158/64 (95) I&O- Last 24 Hours up to 6 AM 11/12/18 06:00 Intake Total 390 ml Output Total 2650 ml Balance -2260 ml BENOIT AGUIRRE DO Nov 12, 2018 19:04
[2018-11-12] MEDS: SIMVASTATIN 20 MG TAB PO SCH (20:31)
[2018-11-12] MEDS: MIRTAZAPINE 15 MG TAB PO SCH (20:32)
[2018-11-12] MEDS: diphenhydrAMINE 25 MG CAP PO SCH (20:32)
[2018-11-13] VITALS (11 sets, daily range): BP systolic 152–188; BP diastolic 60–90
[2018-11-13] MEDS: PANTOPRAZOLE 40MG INJ (PROTONIX) (C9113) IV SCH (00:31)
[2018-11-13] MEDS: FUROSEMIDE 40 MG/4 ML VIAL (J1940) IV SCH ×3 (00:31→16:00)
[2018-11-13] MEDS: LevoFLOXacin IV 750 MG in APPROPRIATE DILUENT 1 EA IV SCH (00:32)
[2018-11-13] MEDS ORDERED: hydrALAZINE INJ 20 MG/ML VIAL IV STA (02:01)
[2018-11-13] MEDS: ACETAMINOPHEN TAB 650MG DOSE (2X325MG) PO PRN ×3 (02:10→20:57)
[2018-11-13] MEDS: IPRATROPIUM 0.5MG/ALBUTEROL 2.5MG INH SOL UD 3ML (DUONEB)(J7620) NEB SCH ×5 (03:38→20:00)
[2018-11-13] MEDS: SLF 3 ML SYR IV SCH ×3 (05:42→20:22)
[2018-11-13] MEDS: METOPROLOL TART 25 MG TABLET PO SCH ×2 (05:42→20:21)
[2018-11-13 05:49] LABS: HEMATOCRIT 52.2 % (36.0-47.0); HEMOGLOBIN 15.8 g/dl (12.0-15.5); MEAN CORPUSCULAR HGB CONC 30.3 g/dl (32.0-36.5); MEAN CORPUSCULAR VOLUME 92.4 fl (80.0-96.0); PLATELET COUNT, AUTOMATED 274 10^3/uL (150-450); RED BLOOD COUNT 5.65 10^6/uL (4.00-5.40); WHITE BLOOD COUNT 6.4 10^3/uL (4.0-10.0)
[2018-11-13 06:01] LABS: BLOOD UREA NITROGEN 23 MG/DL (7-18); CALCIUM LEVEL 9.2 MG/DL (8.8-10.2); CARBON DIOXIDE LEVEL 36 MEQ/L (21-32); CHLORIDE LEVEL 96 MEQ/L (98-107); CREATININE FOR GFR 0.73 MG/DL (0.55-1.30); GLOMERULAR FILTRATION RATE > 60.0 (>45); GLUCOSE, FASTING 188 MG/DL (70-100); POTASSIUM SERUM 3.8 MEQ/L (3.5-5.1); SODIUM LEVEL 139 MEQ/L (136-145)
[2018-11-13 06:02] LABS: INR 2.37; PROTHROMBIN TIME 26.4 SECONDS (12.1-14.4)
[2018-11-13] MEDS: HumaLOG INSULIN (NovoLOG) PER UNIT SC SCH ×4 (07:30→20:22)
[2018-11-13] MEDS: predniSONE 20 MG TAB PO SCH ×2 (08:37→20:20)
[2018-11-13] MEDS: CitaloPRAM (CeleXA) 20 MG TAB PO SCH (08:37)
[2018-11-13] MEDS: LOSARTAN 50 MG TAB PO SCH (08:37)
[2018-11-13] MEDS: ADVAIR HFA 45/21MCG INHALER INH SCH ×2 (09:55→20:00)
[2018-11-13] MEDS: WARFARIN SOD 7.5 MG TAB PO SCH (16:12)
--- NOTE | 2018-11-13 18:27 | IPNPDOC ---
Text Note Date of Service The patient was seen on 11/13/18. NOTE SUBJECTIVE: The patient is seen and examined in the room today. Patient states her lower extremity swellings have been improving significantly. Patient feels her breathing has been improving but very slowly. Denies any fever or chills. OBJECTIVE: VITAL SIGNS: Listed below. GENERAL: No sign of acute distress. The patient is alert and awake. HEENT: Normocephalic, atraumatic. Extraocular motor grossly intact. CARDIOVASCULAR: Positive S1, S2, regular rate. LUNGS: Minimal wheeze. Positive crackles appreciated. ABDOMEN: Soft, nontender, nondistended. EXTREMITIES: The patient was noted to have bilateral chronic venous stasis changes on bilateral lower extremities. Positive lower extremity swellings. LABORATORY DATA: Listed below. IMAGING STUDIES: Chest x-ray demonstrates cardiomegaly with vascular congestion with cephalization. Subtle infiltrate suspected in the left mid lung zone. ASSESSMENT AND PLAN: #. Acute on chronic hypoxic respiratory distress. - At her baseline, the patient has chronic obstructive pulmonary disease (COPD) and severe pulmonary hypertension. The patient was on two liters of oxygen. - Patient demonstrates sign of fluid overload. The patient had an echocardiogram performed in January 2018, demonstrated grade 2 diastolic dysfunction and moderate to severe pulmonary hypertension. Patient was on IV lasix. Will switch to PO lasix with hold parameter. #. Left middle lobe infiltrate. - Culture ordered but patient has not provided sample. Empirically, the patient was started on Levaquin. #. Chronic obstructive pulmonary disease. The patient does have some expiratory wheezes. Will continue to use breathing treatment as needed. #. Currently, patient being treated for congestive heart failure (CHF) exacerbation. Continue to monitor the patient's oxygen requirement. #. History of deep vein thrombosis (DVT). On chronic anticoagulation. Continue Coumadin. #. Diabetes. On sliding scale. #. Depression. Continue home medication. #. History of transient ischemic attack (TIA). On Zocor. #. Deep vein thrombosis (DVT) prophylaxis. On warfarin. VS,Fishbone, I+O VS, Fishbone, I+O Laboratory Tests 11/13/18 04:47 Red Blood Count 5.65 H, Mean Corpuscular Volume 92.4, Mean Corpuscular Hemoglobin 28.0, Mean Corpuscular Hemoglobin Concent 30.3 L, Red Cell Distribution Width 22.2 H, Calcium Level 9.2 Vital Signs Date Time Temp Pulse Resp B/P (MAP) Pulse Ox O2 Delivery O2 Flow Rate FiO2 11/13/18 15:48 98.0 81 20 164/68 (100) 92 Nasal Cannula 3.0 I&O- Last 24 Hours up to 6 AM 11/13/18 06:00 Intake Total 810 ml Output Total 2975 ml Balance -2165 ml BENOIT AGUIRRE DO Nov 13, 2018 18:27
[2018-11-13] MEDS: SIMVASTATIN 20 MG TAB PO SCH (20:21)
[2018-11-13] MEDS: MIRTAZAPINE 15 MG TAB PO SCH (20:21)
[2018-11-13] MEDS: diphenhydrAMINE 25 MG CAP PO SCH (20:22)
[2018-11-14] MEDS: FUROSEMIDE 40 MG TAB PO SCH ×2 (00:29→12:00)
[2018-11-14] MEDS: LevoFLOXacin IV 750 MG in APPROPRIATE DILUENT 1 EA IV SCH (00:30)
[2018-11-14] MEDS: PANTOPRAZOLE 40MG INJ (PROTONIX) (C9113) IV SCH (00:30)
[2018-11-14] MEDS: IPRATROPIUM 0.5MG/ALBUTEROL 2.5MG INH SOL UD 3ML (DUONEB)(J7620) NEB SCH ×7 (00:49→23:13)
[2018-11-14 05:30] VITALS: BP 180/64
[2018-11-14] MEDS: SLF 3 ML SYR IV SCH ×3 (05:54→21:00)
[2018-11-14] MEDS: METOPROLOL TART 25 MG TABLET PO SCH (05:55)
[2018-11-14 06:03] LABS: HEMATOCRIT 55.9 % (36.0-47.0); HEMOGLOBIN 16.9 g/dl (12.0-15.5); MEAN CORPUSCULAR HEMOGLOBIN 27.8 pg (27.0-33.0); MEAN CORPUSCULAR HGB CONC 30.2 g/dl (32.0-36.5); MEAN CORPUSCULAR VOLUME 91.9 fl (80.0-96.0); PLATELET COUNT, AUTOMATED 283 10^3/uL (150-450); RED BLOOD COUNT 6.08 10^6/uL (4.00-5.40); WHITE BLOOD COUNT 6.6 10^3/uL (4.0-10.0)
[2018-11-14 06:21] LABS: BLOOD UREA NITROGEN 26 MG/DL (7-18); CALCIUM LEVEL 9.6 MG/DL (8.8-10.2); CARBON DIOXIDE LEVEL 40 MEQ/L (21-32); CHLORIDE LEVEL 94 MEQ/L (98-107); CREATININE FOR GFR 0.78 MG/DL (0.55-1.30); GLOMERULAR FILTRATION RATE > 60.0 (>45); GLUCOSE, FASTING 174 MG/DL (70-100); POTASSIUM SERUM 4.1 MEQ/L (3.5-5.1); SODIUM LEVEL 138 MEQ/L (136-145)
[2018-11-14 07:00] VITALS: BP 160/74
[2018-11-14 07:02] LABS: INR 2.88; PROTHROMBIN TIME 30.8 SECONDS (12.1-14.4)
[2018-11-14] MEDS: ADVAIR HFA 45/21MCG INHALER INH SCH ×2 (08:41→21:13)
[2018-11-14] MEDS: HumaLOG INSULIN (NovoLOG) PER UNIT SC SCH ×4 (09:58→21:01)
[2018-11-14] MEDS: LOSARTAN 50 MG TAB PO SCH (09:58)
[2018-11-14] MEDS: predniSONE 20 MG TAB PO SCH ×2 (09:58→21:01)
[2018-11-14] MEDS: CitaloPRAM (CeleXA) 20 MG TAB PO SCH (09:58)
[2018-11-14 14:00] VITALS: BP 160/68
--- NOTE | 2018-11-14 16:50 | IPNPDOC ---
Text Note Date of Service The patient was seen on 11/14/18. NOTE SUBJECTIVE: The patient is seen and examined in the room today. Patient states her lower extremity swellings continue to improve. She states her breathing is approaching baseline. Denies any fever or chills. OBJECTIVE: VITAL SIGNS: Listed below. GENERAL: No sign of acute distress. The patient is alert and awake. HEENT: Normocephalic, atraumatic. Extraocular motor grossly intact. CARDIOVASCULAR: Positive S1, S2, regular rate. LUNGS: Minimal wheeze. Positive crackles appreciated. ABDOMEN: Soft, nontender, nondistended. EXTREMITIES: Wrinkles noted on bilateral lower extremities. Lower extremity swellings are improving. Chronic venous stasis change. LABORATORY DATA: Listed below. IMAGING STUDIES: Chest x-ray demonstrates cardiomegaly with vascular congestion with cephalization. Subtle infiltrate suspected in the left mid lung zone. ASSESSMENT AND PLAN: #. Acute on chronic hypoxic respiratory distress. - At her baseline, the patient has chronic obstructive pulmonary disease (COPD) and severe pulmonary hypertension. The patient was on two liters of oxygen. - Signs of fluid overload are improving. The patient had an echocardiogram performed in January 2018, demonstrated grade 2 diastolic dysfunction and moderate to severe pulmonary hypertension. Adjusting diuretic dosage based on input, output and daily weight. #. Left middle lobe infiltrate. - Culture ordered but patient has not provided sample. Empirically, the patient was started on Levaquin. #. Diastolic congestive heart failure (CHF) exacerbation. Continue to monitor the patient's oxygen requirement. Continue titrating diuretic. # Hypertension - On diuretic, losartan, metoprolol. #. Chronic obstructive pulmonary disease. Continue to use breathing treatment as needed. Continue current medication #. History of deep vein thrombosis (DVT). On chronic anticoagulation. Continue Coumadin. #. Diabetes. On sliding scale. #. Depression. Continue home medication. #. History of transient ischemic attack (TIA). On Zocor. #. Deep vein thrombosis (DVT) prophylaxis. On warfarin. VS,Fishbone, I+O VS, Fishbone, I+O Laboratory Tests 11/14/18 05:35 Red Blood Count 6.08 H, Mean Corpuscular Volume 91.9, Mean Corpuscular Hemoglobin 27.8, Mean Corpuscular Hemoglobin Concent 30.2 L, Red Cell Distribution Width 21.8 H, Calcium Level 9.6 Vital Signs Date Time Temp Pulse Resp B/P (MAP) Pulse Ox O2 Delivery O2 Flow Rate FiO2 11/14/18 14:00 98.2 72 19 160/68 (98) 94 Nasal Cannula 3.0 I&O- Last 24 Hours up to 6 AM 11/14/18 06:00 Intake Total 960 ml Output Total 2600 ml Balance -1640 ml BENOIT AGUIRRE DO Nov 14, 2018 16:50
[2018-11-14] MEDS: WARFARIN SOD 5 MG TAB PO SCH (17:00)
[2018-11-14] MEDS: ACETAMINOPHEN TAB 650MG DOSE (2X325MG) PO PRN (17:22)
[2018-11-14] MEDS: MIRTAZAPINE 15 MG TAB PO SCH (21:01)
[2018-11-14] MEDS: diphenhydrAMINE 25 MG CAP PO SCH (21:02)
[2018-11-14] MEDS: METOPROLOL TART 50 MG TAB PO SCH (21:02)
[2018-11-14] MEDS: SIMVASTATIN 20 MG TAB PO SCH (21:02)
[2018-11-14 22:00] VITALS: BP 146/74
[2018-11-15] MEDS: PANTOPRAZOLE 40MG INJ (PROTONIX) (C9113) IV SCH (01:26)
[2018-11-15] MEDS: LevoFLOXacin IV 750 MG in APPROPRIATE DILUENT 1 EA IV SCH (01:26)
[2018-11-15] MEDS: IPRATROPIUM 0.5MG/ALBUTEROL 2.5MG INH SOL UD 3ML (DUONEB)(J7620) NEB SCH ×3 (03:56→11:19)
[2018-11-15] MEDS: SLF 3 ML SYR IV SCH (05:35)
[2018-11-15 06:00] VITALS: BP 164/90
[2018-11-15 06:07] LABS: HEMATOCRIT 54.5 % (36.0-47.0); HEMOGLOBIN 17.3 g/dl (12.0-15.5); MEAN CORPUSCULAR HEMOGLOBIN 28.3 pg (27.0-33.0); MEAN CORPUSCULAR HGB CONC 31.7 g/dl (32.0-36.5); MEAN CORPUSCULAR VOLUME 89.2 fl (80.0-96.0); PLATELET COUNT, AUTOMATED 265 10^3/uL (150-450); RED BLOOD COUNT 6.11 10^6/uL (4.00-5.40); WHITE BLOOD COUNT 6.1 10^3/uL (4.0-10.0)
[2018-11-15 06:15] LABS: INR 3.67; PROTHROMBIN TIME 37.3 SECONDS (12.1-14.4)
[2018-11-15 06:37] LABS: BLOOD UREA NITROGEN 28 MG/DL (7-18); CALCIUM LEVEL 9.2 MG/DL (8.8-10.2); CARBON DIOXIDE LEVEL 33 MEQ/L (21-32); CHLORIDE LEVEL 98 MEQ/L (98-107); CREATININE FOR GFR 0.73 MG/DL (0.55-1.30); GLOMERULAR FILTRATION RATE > 60.0 (>45); GLUCOSE, FASTING 199 MG/DL (70-100); SODIUM LEVEL 138 MEQ/L (136-145)
[2018-11-15] MEDS: ADVAIR HFA 45/21MCG INHALER INH SCH (07:39)
[2018-11-15] MEDS: HumaLOG INSULIN (NovoLOG) PER UNIT SC SCH ×2 (08:37→13:42)
[2018-11-15] MEDS: CitaloPRAM (CeleXA) 20 MG TAB PO SCH (08:40)
[2018-11-15] MEDS: predniSONE 20 MG TAB PO SCH (08:40)
[2018-11-15 08:41] VITALS: BP 164/90
[2018-11-15] MEDS: METOPROLOL TART 50 MG TAB PO SCH (08:41)
[2018-11-15] MEDS: LOSARTAN 50 MG TAB PO SCH (08:41)
[2018-11-15] MEDS ORDERED: FUROSEMIDE 40 MG TAB PO SCH (09:00)
[2018-11-15] MEDS ORDERED: PRED10TA2 PO (11:35)
[2018-11-15] MEDS ORDERED: LOPR1TAB6 PO (11:35)
[2018-11-15] MEDS ORDERED: FURO40TA2 PO (11:35)
[2018-11-15] MEDS ORDERED: COZA50TA PO (11:35)
[2018-11-15] MEDS ORDERED: COUM1TAB17 PO (12:03)
--- NOTE | 2018-11-15 21:37 | DSES ---
DATE OF ADMISSION: 11/10/2018 DATE OF DISCHARGE: 11/15/2018 PRIMARY CARE PROVIDER: Chavo Oneill CONSULTANTS: None. DISCHARGE DIAGNOSES: 1. Acute on chronic hypoxic respiratory distress secondary to fluid overload. 2. Diastolic congestive heart failure exacerbation. 3. Chronic obstructive pulmonary disease (COPD). 4. Severe pulmonary hypertension. 5. Left lung pneumonia. 6. Hypertension. 7. History of deep vein thrombosis (DVT). 8. Diabetes. 9. Depression. 10. History of transient ischemic attack (TIA). HOSPITALIZATION COURSE: The patient is a 63-year-old female, presented to [facility] on 11/10/2018 with worsening difficulty breathing. The patient was found to have congestive heart failure (CHF) exacerbation with possible left middle lobe pneumonia, and the patient was admitted under hospitalist service. The patient was started on intravenous (IV) diuretic, culture obtained. Patient started on empiric antibiotics. With aggressive diuresis, the patient's breathing continued to improve slowly, and patient's oxygen also being titrated accordingly. The patient was also seen by physical therapy for functional optimization. On 11/15/2018, the patient's fluid status and respiratory distress has returned to her baseline. The patient was determined medically stable for discharge with recommendation to followup with her primary care provider in 1 week. Smoking cessation also given to the patient during this hospitalization. OBJECTIVE: Vital signs on the day of discharge: Temperature 97.8, pulse 72, respirations 16, blood pressure 164/90, pulse oximetry is 93% with 3 liters nasal cannula. Laboratory data on day of discharge showed WBC 6.1, hemoglobin 17.3, hematocrit 54.5, platelet count 265. Sodium is 138, potassium 4, chloride 98, carbon dioxide 33, BUN 28, creatinine 0.73, GFR greater than 60, fasting glucose 199, calcium is 9.2. Blood cultures from 11/11/2018 showed no growth after 72 hours times two sets. IMAGING STUDIES: Chest x-ray on 11/10/2018 demonstrated cardiomegaly with vascular congestion and cephalization. Subtle infiltrate suspected left middle lung. DISCHARGE MEDICATIONS: - Lasix 40 mg by mouth daily - losartan 50 mg by mouth daily - metoprolol tartrate 50 mg by mouth twice a day - prednisone taper - warfarin hold for 2 days, then restart at 5 mg by mouth nightly - Tylenol 1000 mg by mouth every 6 hours as needed - albuterol/ipratropium inhalation every 6 hours as needed - citalopram 20 mg by mouth daily - Dexilant 60 mg by mouth daily - Benadryl 25 mg by mouth nightly - Breo one puff inhalation nightly - glipizide 10 mg by mouth twice a day - metformin 500 mg by mouth twice a day - mirtazapine 30 mg by mouth nightly - nitroglycerin 0.4 mg sublingual as needed for chest pain - simvastatin 20 mg by mouth nightly - multivitamin one tablet by mouth daily DISCHARGE INSTRUCTIONS: Discontinue lines. Discharge home. Activity as tolerated. She will be on 1.8 liter fluid restriction. Consistent carbohydrate diet as tolerated. The patient should hold the Coumadin for . The patient should followup with the primary care provider, Cahvo Oneill, in 1 week. DISCHARGE CONDITION: Fair. DISCHARGE TIME: Greater than 30 minutes.
[2018-11-16] MEDS ORDERED: LevoFLOXacin 750 MG TABLET PO SCH (06:00)
== END 2018-11-15 14:20 | disposition home or self-care (01) | DRG 291 ==
LOC: M ED 18:42 → M ED INP 23:05 → M PCU 11-11 01:09 → M MSPAV 11-13 20:41
PROVIDERS: ADMIT Internal Medicine; ATTEND Internal Medicine
DX: I11.0 Hypertensive heart disease with heart failure (principal); J18.9 Pneumonia, unspecified organism; J44.1 Chronic obstructive pulmonary disease with (acute) exacerbation; I50.33 Acute on chronic diastolic (congestive) heart failure; R19.7 Diarrhea, unspecified; E11.9 Type 2 diabetes mellitus without complications; F17.210 Nicotine dependence, cigarettes, uncomplicated; K21.9 Gastro-esophageal reflux disease without esophagitis; I27.20 Pulmonary hypertension, unspecified; D64.9 Anemia, unspecified; R06.03 Acute respiratory distress; F32.9 Major depressive disorder, single episode, unspecified; E78.5 Hyperlipidemia, unspecified; Z98.49 Cataract extraction status, unspecified eye; Z86.718 Personal history of other venous thrombosis and embolism; Z79.01 Long term (current) use of anticoagulants; Z86.73 Personal history of transient ischemic attack (TIA), and cerebral infarction without residual deficits; Z79.84 Long term (current) use of oral hypoglycemic drugs; Z79.899 Other long term (current) drug therapy; Z91.040 Latex allergy status; Z88.1 Allergy status to other antibiotic agents; Z88.8 Allergy status to other drugs, medicaments and biological substances; Z99.81 Dependence on supplemental oxygen

== ENCOUNTER → 2018-12-29 | Outpatient (CLI) | payer MEDICARE, MEDICAID ==
[~2018-12-29] MED LIST changes: +COZA50TA PO; +GASTROGRAFIN SOLUTION 30ML (Q9963) As Ordered ONE; +ISOVUE-370 76% 100ML VIAL (Q9967) As Ordered ONE; +LOPR1TAB6 PO
--- NOTE | 2018-12-29 17:43 | REP ---
CT ABDOMEN WITH ORAL IV CONTRAST: 12/29/2018. Clinical history: Erythrocytosis. Comparison: CT 03/12/2017. Technique: Oral Gastrografin mixture per our protocol followed by bolus of 100 ml Isovue 370, scanning through the abdomen. Both coronal and sagittal reconstructions were performed. Findings CT abdomen. The lung bases are clear. Heart size borderline, but there is no pericardial thickening or effusion. Calcifications in coronary arteries and at the aortic root noted. I see no hiatal hernia. Liver is not enlarged but the left hepatic lobe is enlarged and there are lobulated contours to the liver in both lobes. There is no splenomegaly, focal splenic lesion or upper abdominal ascites. There is no biliary dilatation or focal lesion in the liver. Gallbladder shows no calcified stone or mass. Pancreas shows no mass, ductal dilatation or peripancreatic fluid or inflammatory change. No adenopathy. The aorta has calcifications within and its branches but no aneurysm or dissection. There are small periaortic and retroperitoneal lymph nodes without pathologic sized adenopathy in the retroperitoneum or mesentery. Small bowel loops are contrast or fluid-filled but are not abnormally dilated and show no wall thickening, infiltration of the adjacent mesentery or signs of obstruction. No air-fluid levels. Oral contrast is in the right colon to the hepatic flexure. Colon visible shows no sign of colitis, diverticulitis, stricture or mass. Lung window review shows no evidence of perforation or free air. There is no generalized ascites. There is a small cyst in the interpolar right kidney posteriorly about 2.1 cm. Remainder of the kidneys unremarkable. Bone windows show spondylosis lower lumbar spine with vacuum phenomena at the three lowermost levels. No compression deformity, spondylolysis or spondylolisthesis. The visualized ribs are intact. Impression: 1. There is evidence of chronic liver disease with prominent left hepatic lobe and lobulated contour of the liver but no gross hepatomegaly. No focal lesion or ascites. 2. No splenomegaly or focal splenic lesion. 3. Adrenal glands, pancreas, gallbladder and stomach grossly intact. There is a small cyst in the left kidney. 4. Atherosclerotic calcifications aorta and branches without aneurysm. 5. Small bowel loops and colon included were unremarkable. Bones with degenerative changes but no compression deformity. Electronically Signed by Mac Lawson MD 12/29/2018 09:27 P
== END ==
LOC: M RAD 13:14
PROVIDERS: ATTEND Nurse Practitioner Family
DX: D75.1 Secondary polycythemia (principal); N28.1 Cyst of kidney, acquired; M47.896 Other spondylosis, lumbar region; K76.9 Liver disease, unspecified; I70.0 Atherosclerosis of aorta
CPT/HCPCS: 74160; Q9963; Q9967

== ENCOUNTER 2019-04-04 13:51 | Inpatient (IN) | payer MEDICARE, MEDICAID ==
[~2019-04-04] VITALS: Ht 152.4 cm; Wt 72.7 kg
[~2019-04-04 13:51] MED LIST changes: -/METO25TAB PO; -/QUIN20TA PO; +ACCU1TAB2 PO; -ASPI1TAB PO; +ASPI81TA26 PO; -CITA20TA4 PO; +CITA20TA6 PO; -GASTROGRAFIN SOLUTION 30ML (Q9963) As Ordered ONE; -ISOVUE-370 76% 100ML VIAL (Q9967) As Ordered ONE; +METO1TAB63 PO; -METO25TAB PO; +NICO21DI3 TD; -NORC1TAB4 PO; +NORC1TAB7 PO; +PRED-351 PO; -PRED10TA PO; +SPIR-10 PO
[2019-04-04] MEDS ORDERED: NS 1,000 ML IV SCH (13:57)
[2019-04-04] MEDS ORDERED: IPRATROPIUM 0.5MG/ALBUTEROL 2.5MG INH SOL UD 3ML (DUONEB)(J7620) NEB ONE (14:00)
[2019-04-04] MEDS ORDERED: methylPREDNISolone INJ 125 MG/2 ML VIAL (J2930) IV ONE (14:00)
[2019-04-04] MEDS ORDERED: ALBUTEROL SULFATE 2.5 MG/0.5 ML INH NEB SOLN INH ONE (14:00)
[2019-04-04 14:20] LABS: BASO # 0.1 10^3/uL (0.0-0.2); BASO % 0.5 % (0.0-1.0); EOS % 0.2 % (0.0-3.0); HEMATOCRIT 52.1 % (36.0-47.0); HEMOGLOBIN 16.3 g/dl (12.0-15.5); LYMPH # 2.1 10^3/uL (1.5-4.5); MEAN CORPUSCULAR HEMOGLOBIN 30.4 pg (27.0-33.0); MEAN CORPUSCULAR HGB CONC 31.3 g/dl (32.0-36.5); MEAN CORPUSCULAR VOLUME 97.2 fl (80.0-96.0); MONO # 1.2 10^3/uL (0.0-0.8); MONO % 9.2 % (0.0-5.0); NEUTROPHILS # 9.6 10^3/uL (1.8-7.7); NEUTROPHILS % 73.6 % (36.0-66.0); RED BLOOD COUNT 5.36 10^6/uL (4.00-5.40)
--- NOTE | 2019-04-04 14:46 | REP ---
Clinical: Shortness of breath. Comparison: 11/10/2018. Findings: Mediastinum and cardiac silhouette are stable. Lung brito demonstrate chronic stable interstitial changes. No obvious focal consolidation. No effusion. No pneumothorax. Skeletal structures intact. Impression: Chronic stable changes. No acute cardiopulmonary process appreciated. Electronically Signed by Baltazar Jaeger MD 04/04/2019 02:37 P
[2019-04-04 14:48] LABS: INFLUENZA A AMPLIFICATION NEGATIVE (NEGATIVE); INFLUENZA B AMPLIFICATION NEGATIVE (NEGATIVE)
[2019-04-04] MEDS ORDERED: REME30TA PO (15:09)
[2019-04-04] MEDS ORDERED: WARF-23 PO (15:09)
[2019-04-04 15:18] LABS: INR 1.24; PROTHROMBIN TIME 15.8 SECONDS (12.1-14.4)
[2019-04-04 15:19] LABS: PARTIAL THROMBOPLASTIN TIME 30.9 SECONDS (25.4-37.6)
[2019-04-04 15:33] LABS: PLATELET COUNT, AUTOMATED 287 10^3/uL (150-450)
[2019-04-04 15:38] LABS: ALT/SGPT 15 U/L (12-78); BILIRUBIN,DIRECT 0.2 MG/DL (0.0-0.2); BILIRUBIN,TOTAL 0.8 MG/DL (0.2-1.0); BLOOD UREA NITROGEN 18 MG/DL (7-18); CALCIUM LEVEL 9.2 MG/DL (8.8-10.2); CARBON DIOXIDE LEVEL 34 MEQ/L (21-32); CHLORIDE LEVEL 96 MEQ/L (98-107); CPK CREATINE PHOSPHOKINASE 74 U/L (26-192); CREATININE FOR GFR 1.09 MG/DL (0.55-1.30); GLOMERULAR FILTRATION RATE 53.5 (>45); GLUCOSE, FASTING 189 MG/DL (70-100); MB/CK RELATIVE INDEX 2.03 (< OR =4); NT-PRO BNP 7943 PG/ML (<125); POTASSIUM SERUM 5.5 MEQ/L (3.5-5.1); SODIUM LEVEL 136 MEQ/L (136-145); THYROXINE (T4) 10.1 UG/DL (4.5-12.0); TOTAL PROTEIN 8.4 GM/DL (6.4-8.2); TROPONIN I < 0.02 NG/ML (< 0.10)
[2019-04-04] MEDS ORDERED: LIDOCAINE 2% 5ML JELLY UROJET TOP ONE (16:00)
[2019-04-04] MEDS ORDERED: FUROSEMIDE 100 MG/10 ML VIAL (J1940) IV ONE (16:00)
[2019-04-04 16:05] LABS: ABG BASE EXCESS 1.7 (-2.0-2.0); ABG HCO3 31.3 MEQ/L (22.0-26.0); ABG O2 SATURATION 94.6 % (95.0-99.0); ABG PARTIAL PRESSURE O2 88.5 mmHg (75.0-100.0); ABG STANDARD HCO3 25.8 MEQ/L (22.0-26.0); ABG TOTAL CO2 33.5 MEQ/L (23.0-31.0); ABG pH (ARTERIAL) 7.259 UNITS (7.350-7.450)
[2019-04-04 16:10] LABS: ABG PARTIAL PRESSURE CO2 71.6 mmHg (35.0-45.0)
[2019-04-04] MEDS ORDERED: DEXTROSE 50% 50 ML SYRINGE IV PRN (16:45)
[2019-04-04] MEDS ORDERED: GLUCOSE 4 GM CHEW TABLET PO PRN (16:45)
[2019-04-04] MEDS ORDERED: IPRATROPIUM 0.5MG/ALBUTEROL 2.5MG INH SOL UD 3ML (DUONEB)(J7620) INH PRN (16:45)
[2019-04-04] MEDS ORDERED: GLUCAGON FOR INJ 1 MG VIAL (J1610) SC PRN (16:45)
--- NOTE | 2019-04-04 17:18 | HPEPDOC ---
[facility] Medical History & Physical Date of Admission April 04, 2019 Date of Service: April 04, 2019 Primary Care Physician: LORI GARCIA MD [facility] Other Provider PULMOLOGIST DR THOMPSON Attending Physician: JANETTE PAYTON MD History and Physical CHIEF COMPLAINT:WORSENING OF SHORTNESS OF BREATH FOR 3 DAYS HISTORY OF PRESENT ILLNESS: The patient is a 64 Y female, ongoing smoker, COPD, presents with worsening shortness of breath. The history is provided herself and her daughter who is with her in ER. She had several admissions for the same issue. she is still smoking about 1 PPD, she is on home O2 at 3L NC. She states in the last 3 days, she became more shortness of breath, with some fever (T 100.2 at home), no chills, running nose and sore throat, cough with greenish sputum; today she called her daughter and requested to come to hospital for further treatment. at home, her O2 sat was down to 70s with 3L O2, ambulance brought her to ER. in ER, her ABG showed pH at 7.2 with PCO2 at 71; BiPAP was initiated; she was given IV steroid and lasix; medicine was called for admission. Pul was called for consult. she has low grade fever, pleuritic chest pain; but she denies PALMER, blurred vision, abdominal pain, and n/v/D. PAST MEDICAL HISTORY: 1. chronic respiratory failure, home O2 at 3L 2. COPD 3. diastolic CHF 4. DVT on chronic Coumadin 5. HTN 6. DM T2 PAST SURGICAL HISTORY: 1. Partial hysterectomy 2. Cataract surgery SOCIAL HISTORY: Marital status: Tobacco use:was 3PPD and now 1PPD for more than 35 years ETOH: none Illicit drug use:none she is living with her boyfriend she is full code FAMILY HISTORY: Father: had history of DM ALLERGIES: Erythromycin, latex REVIEW OF SYSTEMS: Per HPI, all other systems reviewed but negative HOME MEDICATIONS: Please see below. PHYSICAL EXAMINATION: VITAL SIGNS: Temperature 97.4, pulse 73, respiratory rate 18, blood pressure 122/62, pulse oximetry 85% on BiPAP GENERAL APPEARANCE: AA Ox3, on BiPAP HEENT: atraumatic CARDIOVASCULAR: S1 S2 regular, no murmur LUNGS: decreased breath sound, diffusing wheezing, no rales ABDOMEN: soft BS +, non tenderness MUSCULOSKELETAL: no weakness EXTREMITIES: no edema NEUROLOGICAL: non focal PSYCHIATRIC: normal mood LABORATORY DATA: See below. IMAGING: chest x ray reviewed and no significant acute change MICROBIOLOGY: Please see below. ASSESSMENT and Plan 1. Acute on chronic respiratory failure with hypoxia and hypercapnia will consult Dr Russo and will continue BiPAP 2. COPD exacerbation, will treat her with IV steroid, Abx(doxy and ceftriaxone), and nebs will do sputum culture 3. Chronic diastolic CHF, compensated and will continue her oral lasix 4. DM T2, will start insulin sliding scale 5. H/O DVT, on coumadin, INR is not therapeutic at 1.2; will continue Coumadin 6. Tobacco abuse, advise to quit; will start Nicotine patch 7. She will be admitted to ICU and will consult Dr Russo for BiPAP management Vital Signs Vital Signs Date Time Temp Pulse Resp B/P (MAP) Pulse Ox O2 Delivery O2 Flow Rate FiO2 04/04/19 16:31 132/66 (88) 04/04/19 16:30 35 04/04/19 16:21 75 84 Nasal Cannula 5.0 04/04/19 14:05 97.4 40 Laboratory Data Labs 24H Laboratory Tests 2 04/04/19 14:06: Immature Granulocyte % (Auto) 0.5, White Blood Count 13.0H, Red Blood Count 5.36, Hemoglobin 16.3H, Hematocrit 52.1H, Mean Corpuscular Volume 97.2H, Mean Corpuscular Hemoglobin 30.4, Mean Corpuscular Hemoglobin Concent 31.3L, Red Cell Distribution Width 16.3H, Platelet Count 287, Neutrophils (%) (Auto) 73.6H, Lymphocytes (%) (Auto) 16.0L, Monocytes (%) (Auto) 9.2H, Eosinophils (%) (Auto) 0.2, Basophils (%) (Auto) 0.5, Neutrophils # (Auto) 9.6H, Lymphocytes # (Auto) 2.1, Monocytes # (Auto) 1.2H, Eosinophils # (Auto) 0.0, Basophils # (Auto) 0.1, Nucleated Red Blood Cells % (auto) 0.0, Lactic Acid Level 1.9, Influenza Type A (RT-PCR) NEGATIVE, Influenza Type B (RT-PCR) NEGATIVE 04/04/19 14:56: Prothrombin Time 15.8H, Prothromb Time International Ratio 1.24, Activated Partial Thromboplast Time 30.9, Anion Gap 6L, Glomerular Filtration Rate 53.5, Calcium Level 9.2, Aspartate Amino Transf (AST/SGOT) 22, Alanine Aminotransferase (ALT/SGPT) 15, Alkaline Phosphatase 89, Total Bilirubin 0.8, Di rect Bilirubin 0.2, Ammonia < 10, Total Creatine Kinase 74, Creatine Kinase MB 2.0, Creatine Kinase MB Relative Index 2.03, Troponin I < 0.02, HO-Vuc-M-Type Natriuretic Peptide 7943H, Total Protein 8.4H, Albumin 3.0L, Albumin/Globulin Ratio 0.56L, Thyroid Stimulating Hormone (TSH) 2.630, Thyroxine (T4) 10.1 04/04/19 15:50: Blood Gas Bicarbonate Standard 25.8, Arterial Blood pH 7.259L, Arterial Blood Partial Pressure CO2 71.6*H, Arterial Blood Partial Pressure O2 88.5, Arterial Blood Total CO2 33.5H, Arterial Blood HCO3 31.3H, Arterial Blood Base Excess 1.7, Arterial Blood Oxygen Saturation 94.6L 04/04/19 16:17: Urine Color JEMMA, Urine Appearance CLOUDYH, Urine pH 5.0, Urine Specific Marshall 1.017, Urine Protein 2+H, Urine Glucose (UA) NEGATIVE, Urine Ketones NEGATIVE, Urine Blood 1+H, Urine Nitrite NEGATIVE, Urine Bilirubin NEGATIVE, Urine Urobilinogen 2.0H, Urine Leukocyte Esterase NEGATIVE, Urine WBC (Auto) 1, Urine RBC (Auto) 17H, Urine Hyaline Casts (Auto) 5, Urine Bacteria (Auto) NEGATIVE, Urine Squamous Epithelial Cells 1, Urine Amorphous Sediment MODERATEH, Urine Sperm (Auto) CBC/BMP Laboratory Tests 04/04/19 14:06 Red Blood Count 5.36, Mean Corpuscular Volume 97.2 H, Mean Corpuscular Hemoglobin 30.4, Mean Corpuscular Hemoglobin Concent 31.3 L, Red Cell Distribution Width 16.3 H, Neutrophils (%) (Auto) 73.6 H, Lymphocytes (%) (Auto) 16.0 L, Monocytes (%) (Auto) 9.2 H, Eosinophils (%) (Auto) 0.2, Basophils (%) (Auto) 0.5, Neutrophils # (Auto) 9.6 H, Lymphocytes # (Auto) 2.1, Monocytes # (Auto) 1.2 H, Eosinophils # (Auto) 0.0, Basophils # (Auto) 0.1 04/04/19 14:56 Microbiology Microbiology 04/04/19 Blood Culture, Received Pending 04/04/19 Blood Culture, Received Pending Home Medications Scheduled Acetaminophen (Acetaminophen) 500 Mg Tab, 1,000 MG PO QHS Citalopram Hydrobromide (Citalopram HBr) 20 Mg Tab, 20 MG PO DAILY Dexlansoprazole (Dexilant) 60 Mg Cap, 60 MG PO DAILY Diphenhydramine HCl (Benadryl) 25 Mg Cap, 50 MG PO QHS Fluticasone/Vilanterol (Breo Ellipta 100-25 Mcg INH) 1 Inh Inh, 1 PUFF INH DAILY Furosemide (Furosemide) 40 Mg Tablet, 80 MG PO DAILY Glipizide (Glipizide) 10 Mg Tab, 10 MG PO BID Losartan Potassium (Cozaar) 50 Mg Tab, 50 MG PO DAILY Metformin HCl (Metformin HCl) 500 Mg Tab, 500 MG PO BID Metoprolol Tartrate (Lopressor) 50 Mg Tab, 50 MG PO BID Mirtazapine (Remeron) 30 Mg Tablet, 15 MG PO QHS Multivitamin (Tab-A-Nancy) 1 Tab Tab, 1 TAB PO DAILY Simvastatin (Simvastatin) 20 Mg Tab, 20 MG PO QHS Spironolactone (Spironolactone) 25 Mg Tablet, 25 MG PO DAILY Warfarin Sodium (Warfarin Sodium) 5 Mg Tablet, 5 MG PO QPM @ 1700 Scheduled PRN Ipratropium/Albuterol Sulfate (Iprat-Albut 0.5-3(2.5) mg/3 ml) 1 Yoni Yoni, 1 YONI INH Q4H PRN for SHORTNESS OF BREATH Nitroglycerin (Nitrostat) 0.4 Mg Subl, 0.4 MG SL NITRO PRN for CHEST PAIN Allergies Coded Allergies: latex (Verified Allergy, Unknown, 04/04/19) bupropion (Verified Adverse Reaction, Severe, violent, 04/04/19) erythromycin base (Verified Adverse Reaction, Intermediate, vomiting, 04/04/19) A-FIB/CHADSVASC A-FIB History Current/History of A-Fib/PAF?: No Current PO Anticoag Therapy: No JANETTE PAYTON MD April 04, 2019 17:18
[2019-04-04] MEDS: WARFARIN SOD 5 MG TAB PO SCH (18:33)
[2019-04-04] MEDS: HumaLOG INSULIN (NovoLOG) PER UNIT SC SCH ×2 (18:34→20:46)
[2019-04-04] MEDS: cefTRIAXone SOD 1 GM in D5W MINI-BAG PLUS 50 ML IV SCH (18:37)
[2019-04-04 18:45] VITALS: BP 160/77
[2019-04-04 19:23] LABS: ABG BASE EXCESS 3.3 (-2.0-2.0); ABG HCO3 33.5 MEQ/L (22.0-26.0); ABG O2 SATURATION 92.6 % (95.0-99.0); ABG PARTIAL PRESSURE O2 72.2 mmHg (75.0-100.0); ABG STANDARD HCO3 27.2 MEQ/L (22.0-26.0); ABG TOTAL CO2 35.9 MEQ/L (23.0-31.0); ABG pH (ARTERIAL) 7.256 UNITS (7.350-7.450)
[2019-04-04 19:27] LABS: ABG PARTIAL PRESSURE CO2 77.1 mmHg (35.0-45.0)
[2019-04-04 19:30] VITALS: BP 119/74
[2019-04-04] MEDS: DOXYCYCLINE HYCLATE 100 MG in D5W MINI-BAG PLUS 100 ML IV SCH (19:35)
--- NOTE | 2019-04-04 19:59 | CCN ---
DATE: 04/04/2019 Critical care time 1 hour, this excludes all procedures. I was consulted to manage BiPap for this patient in acute hypoxic hypercarbic respiratory failure. Celeste is a 64-year-old female who has had upper respiratory symptoms for the past 3 days, increased cough, increased shortness of breath. She states she did not reach out to her primary care physician as it was [facility] and therefore presents in respiratory distress to the hospital. Her carboxyhemoglobin was elevated and therefore I believe she is likely still smoking. Arterial blood gas shows a pCO2 of 71.6. She was initiated on bilevel noninvasive therapy at 14/8 in the emergency room reportedly having tidal volumes in the low 400s. On arrival to the ICU which was over an hour later from this report, she had began to refuse her BiPap stating she cannot breathe without it. I met her at this point in time, adjusted BiPap settings to 22/12 with a tidal volume ranging from 450-460. She said that she felt more comfortable with this, is willing to accept resuscitative efforts at this point in time. She states that that she would like to think about resuscitation more. The patient is dyspneic but awake, able to answer short questions. Her daughter is at her bedside. She states usually her oxygen level runs very low at home, sometimes as low as 78%. She has had no chest discomfort. No headaches. Her history is limited to the ability for her to answer questions well on bilevel noninvasive therapy and because of the level of her dyspnea. PHYSICAL EXAMINATION: Temperature is 98.4, pulse is 71, respiratory rate of 34, blood pressure is 174/77 with a mean arterial pressure of 109, oxygen saturations ranging 93% with bilevel changes. HEENT: Sclerae clear and anicteric. Pupils equal, react to light. Mucous membranes are moist without lesions. Tongue is midline. Neck is supple. No tracheal deviation or mass. LYMPHATICS: No cervical, supraclavicular, or axillary adenopathy. CARDIAC: Distant heart sounds. I barely can make out any heart sounds due to the increased AP diameter. PMI is difficult to palpate. There is no systemic edema. PULMONARY: Decreased breath sounds throughout without rales, rhonchi or wheezes. No dullness to percussion. No accessory muscle use. ABDOMEN: Soft, nontender, nondistended. No hepatosplenomegaly. No masses or hernia. EXTREMITIES: No cyanosis, clubbing or edema. There is actually some crenation of the skin of her lower extremities with chronic stasis skin changes from venous stasis. LABORATORY EVALUATION: Shows a white blood cell count of 13.0, hemoglobin of 16.3, platelet count of 287, sodium is 136, potassium is elevated at 5.5, chloride 96, bicarbonate of 34, BUN of 18, creatinine of 1.09. Arterial blood gas of 7.26, pCO2 of 72 and PaO2 of 89. Imaging of the chest shows some increased vascular congestion and actually poor chest expansion with enlarged pulmonary arteries. Nonspecific increase in interstitial markings at the left lower base without pleural effusion. There is some cardiomegaly. IMPRESSION: 1. Acute on chronic hypoxic hypercarbic respiratory failure likely from recent upper respiratory infection. I agree with current therapy of IV steroids, IV ceftriaxone. The patient is being covered with atypicals with doxycycline. Would discontinue ceftriaxone after the patient establishes stability. The patient has no long-acting inhaled therapy written for therefore I will prescribe this. I have altered her BiPap settings at her bedside. She is at risk for further respiratory failure and need for intubation given the severity of her lung disease. 2. Hyperkalemia. This may be transient secondary to her respiratory acidosis, however, will hold CLAY inhibitor and spironolactone. 3. DVT prophylaxis. The patient is already on warfarin. 4. GI prophylaxis. I do not see where this has been ordered therefore I will write for this. Critical care time as mentioned above. This excludes all procedures.
[2019-04-04 20:00] VITALS: BP 124/62
[2019-04-04] MEDS: BUDESONIDE 0.5 MG/2 ML INHALATION SUSPENSION INH SCH (20:00)
[2019-04-04] MEDS: IPRATROPIUM 0.5MG/ALBUTEROL 2.5MG INH SOL UD 3ML (DUONEB)(J7620) NEB SCH (20:00)
[2019-04-04 20:05] VITALS: O2SAT 93
[2019-04-04] MEDS: SIMVASTATIN 20 MG TAB PO SCH (20:46)
[2019-04-04] MEDS: methylPREDNISolone INJ 40 MG/1 ML VIAL (J2920) IV SCH (20:46)
[2019-04-04] MEDS: MIRTAZAPINE 15 MG TAB PO SCH (20:46)
[2019-04-04] MEDS: METOPROLOL TART 50 MG TAB PO SCH (20:47)
[2019-04-04] MEDS ORDERED: diphenhydrAMINE 50 MG CAP PO SCH (21:00)
[2019-04-04] MEDS ORDERED: ACETAMINOPHEN 500 MG TAB PO SCH (21:00)
--- NOTE | 2019-04-04 21:10 | ECGEPIP ---
[facility] - ED Test Date: 2019-04-04 Pat Name: CANDIDO BAEZ Department: Room: - Gender: Female [employer]: : 1955 Requested By: Andi Perry Order Number: [id number] Reading MD: Beverley Ortega Measurements Intervals [place] Rate: 86 P: 71 OK: 166 QRS: 21 QRSD: 120 T: 55 QT: 389 QTc: 466 Interpretive Statements SINUS RHYTHM POSSIBLE RIGHT VENTRICULAR CONDUCTION DELAY RIGHT VENTRICULAR HYPERTROPHY SIMILAR 11/10/18 Electronically Signed on 04-04-2019 21:10:29 EDT by Beverley Ortega
[2019-04-04 22:00] VITALS: BP 126/59
[2019-04-04 22:19] LABS: ABG BASE EXCESS 4.1 (-2.0-2.0); ABG HCO3 32.8 MEQ/L (22.0-26.0); ABG O2 SATURATION 92.2 % (95.0-99.0); ABG PARTIAL PRESSURE O2 67.2 mmHg (75.0-100.0); ABG TOTAL CO2 34.8 MEQ/L (23.0-31.0)
[2019-04-04 22:22] LABS: ABG PARTIAL PRESSURE CO2 66.6 mmHg (35.0-45.0)
[2019-04-05] VITALS (11 sets, daily range): BP systolic 105–156; BP diastolic 53–70
[2019-04-05] MEDS: methylPREDNISolone INJ 40 MG/1 ML VIAL (J2920) IV SCH ×4 (02:39→20:14)
[2019-04-05] MEDS: FORMOTEROL FUMARATE 20 MCG/2 ML INHALATION SOLUTION (PERFOROMIST) INH SCH ×3 (03:39→19:44)
[2019-04-05] MEDS ORDERED: SODIUM CHLORIDE 0.9% 1000ML IV ONE (04:00)
[2019-04-05 05:03] LABS: HEMATOCRIT 48.5 % (36.0-47.0); MEAN CORPUSCULAR HEMOGLOBIN 29.5 pg (27.0-33.0); MEAN CORPUSCULAR HGB CONC 30.9 g/dl (32.0-36.5); MEAN CORPUSCULAR VOLUME 95.5 fl (80.0-96.0); PLATELET COUNT, AUTOMATED 290 10^3/uL (150-450); RED BLOOD COUNT 5.08 10^6/uL (4.00-5.40); WHITE BLOOD COUNT 9.5 10^3/uL (4.0-10.0)
[2019-04-05 05:15] LABS: INR 1.37; PROTHROMBIN TIME 17.1 SECONDS (12.1-14.4)
[2019-04-05 05:28] LABS: CREATININE FOR GFR 1.1 MG/DL (0.55-1.30); GLOMERULAR FILTRATION RATE 52.9 (>45); POTASSIUM SERUM 5.2 MEQ/L (3.5-5.1)
[2019-04-05] MEDS: DOXYCYCLINE HYCLATE 100 MG in D5W MINI-BAG PLUS 100 ML IV SCH ×2 (05:53→17:58)
[2019-04-05 05:56] LABS: ABG BASE EXCESS 3.3 (-2.0-2.0); ABG HCO3 34.4 MEQ/L (22.0-26.0); ABG O2 SATURATION 90.3 % (95.0-99.0); ABG PARTIAL PRESSURE O2 69.7 mmHg (75.0-100.0); ABG STANDARD HCO3 27.2 MEQ/L (22.0-26.0)
[2019-04-05 05:59] LABS: ABG pH (ARTERIAL) 7.224 UNITS (7.350-7.450)
[2019-04-05 06:00] LABS: ABG PARTIAL PRESSURE CO2 85.1 mmHg (35.0-45.0)
[2019-04-05] MEDS: HumaLOG INSULIN (NovoLOG) PER UNIT SC SCH ×5 (07:20→20:19)
[2019-04-05] MEDS: IPRATROPIUM 0.5MG/ALBUTEROL 2.5MG INH SOL UD 3ML (DUONEB)(J7620) NEB SCH ×4 (07:58→19:44)
[2019-04-05] MEDS: BUDESONIDE 0.5 MG/2 ML INHALATION SUSPENSION INH SCH ×2 (07:58→19:44)
[2019-04-05] MEDS: TIOTROPIUM INHALER/CAPSULE (SPIRIVA) INH SCH (07:58)
--- NOTE | 2019-04-05 08:18 | REP ---
Portable chest x-ray: Sitting AP view. History: Acute respiratory failure. Comparison study: April 04, 2019. Findings: EKG monitoring electrodes and oxygen delivery tubing are seen overlying the chest. The lungs are well inflated and clear. Pulmonary vascular and interstitial markings are slightly prominent but improved. No pleural effusion is seen. No new infiltrate. Electronically Signed by Marcio Robles MD 04/05/2019 08:09 A
[2019-04-05 08:34] LABS: ABG BASE EXCESS 0.2 (-2.0-2.0); ABG HCO3 30.7 MEQ/L (22.0-26.0); ABG O2 SATURATION 91.6 % (95.0-99.0); ABG PARTIAL PRESSURE O2 71.9 mmHg (75.0-100.0); ABG STANDARD HCO3 24.5 MEQ/L (22.0-26.0); ABG TOTAL CO2 33.1 MEQ/L (23.0-31.0)
[2019-04-05 08:40] LABS: ABG PARTIAL PRESSURE CO2 77.5 mmHg (35.0-45.0); ABG pH (ARTERIAL) 7.216 UNITS (7.350-7.450)
[2019-04-05] MEDS ORDERED: SPIRONOLACTONE 25 MG TAB PO SCH (09:00)
[2019-04-05] MEDS ORDERED: FUROSEMIDE 40 MG TAB PO SCH (09:00)
[2019-04-05] MEDS ORDERED: LOSARTAN 50 MG TAB PO SCH (09:00)
[2019-04-05] MEDS: PANTOPRAZOLE 40MG TAB (PROTONIX) PO SCH (09:12)
[2019-04-05] MEDS: METOPROLOL TART 50 MG TAB PO SCH ×2 (09:12→20:15)
[2019-04-05] MEDS: CitaloPRAM (CeleXA) 20 MG TAB PO SCH (09:12)
--- NOTE | 2019-04-05 09:40 | CCN ---
DATE OF SERVICE: 04/05/2019 Ms. Adams is seen in the intensive care unit (ICU). She has remained on bilateral positive airway pressure (BiPAP) compliantly overnight. She does report that she is feeling better today than she did yesterday. However, she still is requiring BiPAP, and her earlier blood gas this morning does show that her pH and CO2 are both worse. The patient denies fevers or chills. She is still nothing by mouth but is able to have oral medications with sips of water. The patient is in the process of discussing advance directives with her family. PHYSICAL EXAMINATION Vital signs: Temperature is 96.8, pulse is 60, respiratory rate 22, blood pressure 114/53, pulse oximetry 95%, FIO2 is 40. BiPAP is 22/12. General: The patient is alert and oriented. She is wearing BiPAP mask and does attempt to speak in complete sentences. HEENT: Head is normocephalic, atraumatic. Moist mucous membranes. Neck: Neck is supple. No cervical lymphadenopathy. No jugular venous distention (JVD). Trachea is midline. Chest: Diminished breath sounds. Some scattered rhonchi and upper airway sounds noted. No accessory muscle use. Cardiac: Regular rate and rhythm. Distant heart sounds. No obvious murmurs. Abdomen: Positive bowel sounds, soft, nontender. No rebound or guarding. Extremities: No edema. Some chronic lower extremity stasis changes. Skin: Some tenting of skin on the hands. LABORATORIES: Arterial blood gas (ABG): pH 7.216, pCO2 77.5, pO2 is 71.9. Hematology: WBC is 9.5, hemoglobin 15.0, hematocrit is 48.5, platelets 290. Chemistry: Sodium 135, potassium 5.2, chloride 98, carbon dioxide 34, BUN 30, creatinine 1.10, glucose is 181, calcium is 9.0. Chest x-ray does show increased vascular markings. ASSESSMENT AND PLAN: 1. Acute on chronic hypoxic hypercarbic respiratory failure. Likely, this is from recent upper respiratory infection. She is getting intravenous (IV) steroids. She is on doxycycline and ceftriaxone for antibiotic coverage. She is getting nebulizers. She is on Pulmicort and Perforomist nebulizers. She is on Spiriva. She remains on BiPAP. Her CO2 is a little better now compared to earlier this morning. Therefore, continue BiPAP at current settings. She does appear dry on examination despite vascular markings on chest x-ray. Plan will be to hold her Lasix with continued monitoring to watch for any eventual need to reinitiate the Lasix. At this point, will hold off on fluid bolus, as she did get approximately 500 mL of fluid overnight, although she was still on Lasix at that time. Will continue to monitor closely. 2. Hyperkalemia. Her potassium is slightly down today at 5.2. Her spironolactone and angiotensin-converting enzyme (CLAY) inhibitors have been held. Will continue to monitor closely. 3. Deep venous thrombosis (DVT) prophylaxis. The patient is on warfarin. Her international normalized ratio (INR) today is 1.37. She, therefore, will be given an additional dose of Coumadin tonight. She is normally on 5 mg of warfarin daily. Will give an additional 5 mg tonight and recheck an INR again in the morning. Total critical care time excluding all procedures was 54 minutes.
--- NOTE | 2019-04-05 10:11 | IPNPDOC ---
Text Note Date of Service The patient was seen on 04/05/19. NOTE Subjective: Patient seen and examined at bedside. No acute overnight events reported. Daughter at bedside states she feels her mother is more lethargic. Patient denies any new medical complaints. Objective: GENERAL APPEARANCE: AAOx3, on BiPAP, somewhat lethargic but easily arousable and follows commands HEENT: NC/AT, BiPAP in place CARDIOVASCULAR: +S1S2, susan LUNGS: decreased breath sound, CTA ABDOMEN: soft, obese, +BS, NT EXTREMITIES: no edema, chronic venous stasis changes LABORATORY DATA: See below. A/P: 64 yo female, active smoker with COPD/chronic hypoxic resp. failure on 3L O2 at home presents for several day hx of worsening SOB, fevers, cough, hypoxic at h ome. Found to be in acute hypoxic/hypercapnic respiratory failure, admitted to ICU. #acute/chronic respiratory failure with hypoxia and hypercapnia - baseline 3L supplemental O2 via nasal cannula - currently receiving NIPPV therapy - d/w pulm - assistance greatly appreciated #COPD exacerbation - continue IV steroid, anti-microbial therapy - doxy and ceftriaxone (day #2) - continue respiratory treatments - perforomist, pulmicort, spiriva, duoneb - SCx pending #hyperkalemia - ARB/aldactone on hold - likely secondary to acidosis - improved from yesterday - continue to follow #HFpEF - compensated - continue her oral lasix; aldactone on hold given hyperkalemia #HTN - ARB and aldactone on hold given hyperkalemia - currently receiving lopressor as per home Rx #DLP - continue statin therapy #DM T2 - continue ISS #PAD/carotid artery disease #H/O DVT/PE - patient's daughter states that she initially was on a NOAC, however she was not taking her medication properly, and was then switched to coumadin - history not entirely clear as daughter states 'her levels were high' and thus switched to coumadin - today INR sub-therapeutic - additional dose for tonight - recent repeat CTA shows resolution of her previous pulmonary emboli - previously b/l LE DVT, b/l PE #anxiety/depression - continue celexa/remeron #Tobacco abuse - continue with nicotine replacement therapy #GI/DVT prophylaxis - protonix, mechanical prophylaxis, on coumadin VS,Fishbone, I+O VS, Fishbone, I+O Laboratory Tests 04/04/19 14:06 Red Blood Count 5.36, Mean Corpuscular Volume 97.2 H, Mean Corpuscular Hemoglobin 30.4, Mean Corpuscular Hemoglobin Concent 31.3 L, Red Cell Distribution Width 16.3 H, Neutrophils (%) (Auto) 73.6 H, Lymphocytes (%) (Auto) 16.0 L, Monocytes (%) (Auto) 9.2 H, Eosinophils (%) (Auto) 0.2, Basophils (%) (Auto) 0.5, Neutrophils # (Auto) 9.6 H, Lymphocytes # (Auto) 2.1, Monocytes # (Auto) 1.2 H, Eosinophils # (Auto) 0.0, Basophils # (Auto) 0.1 04/04/19 14:56 04/05/19 04:49 Red Blood Count 5.08, Mean Corpuscular Volume 95.5, Mean Corpuscular Hemoglobin 29.5, Mean Corpuscular Hemoglobin Concent 30.9 L, Red Cell Distribution Width 16.3 H, Calcium Level 9.0 Vital Signs Date Time Temp Pulse Resp B/P (MAP) Pulse Ox O2 Delivery O2 Flow Rate FiO2 04/05/19 06:00 60 22 114/53 (73) 95 40 04/05/19 04:00 96.8 04/04/19 20:05 BIPAP/CPAP 04/04/19 19:00 4.0 I&O- Last 24 Hours up to 6 AM 04/05/19 06:00 Intake Total 1050 ml Output Total 604 ml Balance 446 ml KAREN NETTLES MD April 05, 2019 07:58
--- NOTE | 2019-04-05 15:22 | REP ---
Urinary tract sonography: History: Low urine of the foot. Findings: Scanning through the level of the urinary bladder demonstrates that it is empty except for the presence of a Pappas catheter. Renal cortical echogenicity pattern is normal and renal contours are smooth bilaterally. There is no evidence of hydronephrosis on either side. There is a 2.8 x 1.8 x 1.9 cm cyst at the lateral aspect of the lower pole of the left kidney. No other renal cyst is seen. No mass is observed. Left renal dimensions are 11.5 x 5.0 x 6.3 cm. The right kidney measures 10.5 x 5.4 x 4.4 cm. Impression: 2.8 cm cyst lower pole left kidney. Otherwise negative urinary tract sonography. Pappas catheter in the urinary bladder. Electronically Signed by Marcio Robles MD 04/05/2019 04:18 P
[2019-04-05] MEDS ORDERED: WARFARIN SOD 5 MG TAB PO ONE (17:00)
[2019-04-05] MEDS: WARFARIN SOD 5 MG TAB PO SCH (17:07)
[2019-04-05] MEDS: cefTRIAXone SOD 1 GM in D5W MINI-BAG PLUS 50 ML IV SCH (17:08)
[2019-04-05] MEDS: MIRTAZAPINE 15 MG TAB PO SCH (20:14)
[2019-04-05] MEDS: SIMVASTATIN 20 MG TAB PO SCH (20:14)
[2019-04-05] MEDS: BENZONATATE 100 MG CAP PO SCH (21:17)
[2019-04-06] VITALS (8 sets, daily range): BP systolic 130–194; BP diastolic 63–86
[2019-04-06] MEDS: methylPREDNISolone INJ 40 MG/1 ML VIAL (J2920) IV SCH ×4 (02:28→20:02)
[2019-04-06 05:29] LABS: INR 1.86; PROTHROMBIN TIME 21.8 SECONDS (12.1-14.4)
[2019-04-06] MEDS: DOXYCYCLINE HYCLATE 100 MG in D5W MINI-BAG PLUS 100 ML IV SCH ×2 (05:29→18:07)
[2019-04-06] MEDS ORDERED: HumaLOG INSULIN (NovoLOG) PER UNIT SC SCH (06:00)
[2019-04-06 06:20] LABS: HEMATOCRIT 48.1 % (36.0-47.0); HEMOGLOBIN 15.1 g/dl (12.0-15.5); MEAN CORPUSCULAR HEMOGLOBIN 30.5 pg (27.0-33.0); MEAN CORPUSCULAR HGB CONC 31.4 g/dl (32.0-36.5); MEAN CORPUSCULAR VOLUME 97.2 fl (80.0-96.0); PLATELET COUNT, AUTOMATED 325 10^3/uL (150-450); RED BLOOD COUNT 4.95 10^6/uL (4.00-5.40); WHITE BLOOD COUNT 7.6 10^3/uL (4.0-10.0)
[2019-04-06 06:27] LABS: CALCIUM LEVEL 9.3 MG/DL (8.8-10.2); CREATININE FOR GFR 1.17 MG/DL (0.55-1.30); GLOMERULAR FILTRATION RATE 49.3 (>45); POTASSIUM SERUM 5.7 MEQ/L (3.5-5.1)
[2019-04-06] MEDS: HumaLOG INSULIN (NovoLOG) PER UNIT SC SCH ×4 (07:30→20:06)
[2019-04-06] MEDS: IPRATROPIUM 0.5MG/ALBUTEROL 2.5MG INH SOL UD 3ML (DUONEB)(J7620) NEB SCH ×4 (08:00→19:12)
[2019-04-06] MEDS: BUDESONIDE 0.5 MG/2 ML INHALATION SUSPENSION INH SCH ×2 (08:05→20:00)
[2019-04-06] MEDS: TIOTROPIUM INHALER/CAPSULE (SPIRIVA) INH SCH (08:05)
[2019-04-06] MEDS: FORMOTEROL FUMARATE 20 MCG/2 ML INHALATION SOLUTION (PERFOROMIST) INH SCH ×2 (08:05→20:00)
[2019-04-06] MEDS ORDERED: NS 500 ML IV ONE (08:30)
--- NOTE | 2019-04-06 08:43 | CCN ---
DATE: 04/06/2019 Ms. Adams was seen in the intensive care unit (ICU). She is continuing with BiPap. She states that she does continue to progressively improve and feel less dyspnea. She denies fevers or chills. Denies chest pain. PHYSICAL EXAMINATION: Vital signs: Temperature 98.0, pulse 52, respiratory rate 24, blood pressure 138/71, pulse ox 95% on BiPap 22/12. GENERAL: The patient is alert and oriented. She is able to speak in complete sentences. HEENT: Head is normocephalic, atraumatic. Moist mucous membranes. Neck is supple. No cervical lymphadenopathy. No jugular venous distention (JVD). Trachea is midline. Pulmonary: Breath sounds are clear to auscultation bilaterally. Some expiratory rhonchi throughout. No accessory muscle use. Cardiac: Regular rate and rhythm. S1, S2. No murmurs. Abdomen: Positive bowel sounds, soft, nontender. No rebound or guarding. Extremities: No clubbing, cyanosis or edema. Some chronic lower extremity stasis changes. LABORATORY DATA: ABG pending. WBC 7.6, hemoglobin 15.1, hematocrit 48.1, platelets 325. Sodium 136, potassium 5.7, chloride 98, carbon dioxide 34, BUN 54, creatinine 1.17, glucose 173, calcium 9.3, PT 28.8, INR 1.86. ASSESSMENT/PLAN: 1. Acute on chronic respiratory failure. The patient he is continuing BiPap. ABG has been ordered and is currently pending. She is currently getting IV steroids. She is on antibiotic coverage with doxycycline and ceftriaxone. She continues getting nebulized budesonide and formoterol. She is on a getting DuoNebs as needed. She is getting Spiriva. Sputum culture is currently pending. She looks clinically dry and her BUN has continued to go up. Yesterday her Lasix was stopped. Today we will give her a 500 mL fluid bolus. Continue to monitor closely. 2. Hyperkalemia. Potassium is back up today at 5.7. Spironolactone and CLAY inhibitors have been held. Continue to monitor closely. 3. Deep vein thrombosis (DVT) prophylaxis. The patient has a history of DVT and is on chronic warfarin therapy. She is generally getting 5 mg daily, however yesterday got 10 mg and her INR did increase to 1.86. Continue to monitor and recheck an INR tomorrow morning. Total critical care time excluding all procedures was 47 minutes. MTDD
[2019-04-06 09:08] LABS: ABG BASE EXCESS 3.3 (-2.0-2.0); ABG HCO3 30.8 MEQ/L (22.0-26.0); ABG O2 SATURATION 95.7 % (95.0-99.0); ABG PARTIAL PRESSURE CO2 58.2 mmHg (35.0-45.0); ABG PARTIAL PRESSURE O2 82.8 mmHg (75.0-100.0); ABG STANDARD HCO3 27.4 MEQ/L (22.0-26.0); ABG TOTAL CO2 32.6 MEQ/L (23.0-31.0); ABG pH (ARTERIAL) 7.341 UNITS (7.350-7.450)
[2019-04-06] MEDS: CitaloPRAM (CeleXA) 20 MG TAB PO SCH (09:18)
[2019-04-06] MEDS: PANTOPRAZOLE 40MG TAB (PROTONIX) PO SCH (09:19)
[2019-04-06] MEDS: BENZONATATE 100 MG CAP PO SCH (09:19)
[2019-04-06] MEDS: METOPROLOL TART 50 MG TAB PO SCH ×2 (09:21→20:03)
[2019-04-06] MEDS ORDERED: DEXTROSE 50% 50 ML SYRINGE IV PRN (09:30)
[2019-04-06] MEDS ORDERED: GLUCOSE 4 GM CHEW TABLET PO PRN (09:30)
[2019-04-06] MEDS ORDERED: GLUCAGON FOR INJ 1 MG VIAL (J1610) SC PRN (09:30)
--- NOTE | 2019-04-06 09:49 | ECGEPIP ---
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 Electronically Signed on 04-06-2019 9:48:41 EDT by Rancho Jean
[2019-04-06] MEDS: BENZONATATE 100 MG CAP PO PRN (13:41)
[2019-04-06] MEDS: cefTRIAXone SOD 1 GM in D5W MINI-BAG PLUS 50 ML IV SCH (17:21)
[2019-04-06] MEDS: WARFARIN SOD 5 MG TAB PO SCH (17:21)
[2019-04-06] MEDS: ACETAMINOPHEN TAB 650MG DOSE (2X325MG) PO PRN (17:39)
--- NOTE | 2019-04-06 19:01 | IPNPDOC ---
Text Note Date of Service The patient was seen on 04/06/19. NOTE Subjective: Patient seen and examined at bedside. No acute overnight events reported. Feeling better today. Objective: GENERAL APPEARANCE: AAOx3, on BiPAP, more alert today, in good spirits HEENT: NC/AT, BiPAP in place CARDIOVASCULAR: +S1S2, susan LUNGS: decreased breath sound, CTA ABDOMEN: soft, obese, +BS, NT EXTREMITIES: no edema, chronic venous stasis changes LABORATORY DATA: See below. A/P: 64 yo female, active smoker with COPD/chronic hypoxic resp. failure on 3L O2 at home presents for several day hx of worsening SOB, fevers, cough, hypoxic at home. Found to be in acute hypoxic/hypercapnic respiratory failure, admitted to ICU. #acute/chronic respiratory failure with hypoxia and hypercapnia - baseline 3L supplemental O2 via nasal cannula - currently receiving NIPPV therapy - d/w pulm - assistance greatly appreciated #COPD exacerbation - continue IV steroid, anti-microbial therapy - doxy and ceftriaxone (day #3) - continue respiratory treatments - perforomist, pulmicort, spiriva, duoneb - SCx pending #hyperkalemia - ARB/aldactone on hold - likely secondary to acidosis - slightly worse - ECG pending - continue to follow #HFpEF - compensated - aldactone on hold given hyperkalemia; lasix on hold #HTN - ARB and aldactone on hold given hyperkalemia - currently receiving lopressor as per home Rx #DLP - continue statin therapy #DM T2 - continue ISS #PAD/carotid artery disease #H/O DVT/PE - patient's daughter states that she initially was on a NOAC, however she was not taking her medication properly, and was then switched to coumadin - history not entirely clear as daughter states 'her levels were high' and thus switched to coumadin - today INR improved - additional dose for tonight - recent repeat CTA shows resolution of her previous pulmonary emboli - previously b/l LE DVT, b/l PE #anxiety/depression - continue celexa/remeron #Tobacco abuse - continue with nicotine replacement therapy #GI/DVT prophylaxis - protonix, mechanical prophylaxis, on coumadin VS,Fishbone, I+O VS, Fishbone, I+O Laboratory Tests 04/06/19 05:08 Red Blood Count 4.95, Mean Corpuscular Volume 97.2 H, Mean Corpuscular Hemoglobin 30.5, Mean Corpuscular Hemoglobin Concent 31.4 L, Red Cell Distribution Width 16.2 H, Calcium Level 9.3 Vital Signs Date Time Temp Pulse Resp B/P (MAP) Pulse Ox O2 Delivery O2 Flow Rate FiO2 04/06/19 15:54 5.0 04/06/19 15:52 97.4 60 24 155/65 (95) 93 04/06/19 11:49 35 04/04/19 20:05 BIPAP/CPAP I&O- Last 24 Hours up to 6 AM 04/06/19 06:00 Intake Total 550 ml Output Total 520 ml Balance 30 ml KAERN NETTLES MD April 06, 2019 19:01
[2019-04-06] MEDS: MIRTAZAPINE 15 MG TAB PO SCH (20:02)
[2019-04-06] MEDS: SIMVASTATIN 20 MG TAB PO SCH (20:03)
[2019-04-07] VITALS: BP 162/76
[2019-04-07] MEDS: methylPREDNISolone INJ 40 MG/1 ML VIAL (J2920) IV SCH ×2 (03:00→09:57)
[2019-04-07 04:00] VITALS: BP 133/63
[2019-04-07 04:59] LABS: HEMATOCRIT 46.7 % (36.0-47.0); HEMOGLOBIN 14.8 g/dl (12.0-15.5); LYMPH # 0.7 10^3/uL (1.5-4.5); LYMPH % 10.1 % (24.0-44.0); MEAN CORPUSCULAR HEMOGLOBIN 29.5 pg (27.0-33.0); MEAN CORPUSCULAR HGB CONC 31.7 g/dl (32.0-36.5); MONO # 0.3 10^3/uL (0.0-0.8); MONO % 3.4 % (0.0-5.0); NEUTROPHILS # 6.3 10^3/uL (1.8-7.7); NEUTROPHILS % 86.1 % (36.0-66.0); PLATELET COUNT, AUTOMATED 352 10^3/uL (150-450); RED BLOOD COUNT 5.02 10^6/uL (4.00-5.40); WHITE BLOOD COUNT 7.3 10^3/uL (4.0-10.0)
[2019-04-07 05:07] LABS: INR 3.11; PROTHROMBIN TIME 32.7 SECONDS (12.1-14.4)
[2019-04-07 05:43] LABS: ALBUMIN 2.7 GM/DL (3.2-5.2); BILIRUBIN,TOTAL 0.2 MG/DL (0.2-1.0); CALCIUM LEVEL 9.9 MG/DL (8.8-10.2); CREATININE FOR GFR 1.01 MG/DL (0.55-1.30); GLOMERULAR FILTRATION RATE 58.4 (>45); TOTAL PROTEIN 7.2 GM/DL (6.4-8.2)
[2019-04-07 06:09] LABS: ABG BASE EXCESS 4.5 (-2.0-2.0); ABG HCO3 33.8 MEQ/L (22.0-26.0); ABG O2 SATURATION 97.8 % (95.0-99.0); ABG PARTIAL PRESSURE O2 111.7 mmHg (75.0-100.0); ABG STANDARD HCO3 28.5 MEQ/L (22.0-26.0); ABG pH (ARTERIAL) 7.291 UNITS (7.350-7.450)
[2019-04-07 06:11] LABS: ABG PARTIAL PRESSURE CO2 71.7 mmHg (35.0-45.0)
[2019-04-07] MEDS: DOXYCYCLINE HYCLATE 100 MG in D5W MINI-BAG PLUS 100 ML IV SCH ×2 (06:11→17:06)
[2019-04-07] MEDS: HumaLOG INSULIN (NovoLOG) PER UNIT SC SCH ×4 (07:46→21:39)
[2019-04-07 07:55] VITALS: BP 186/78
[2019-04-07] MEDS: IPRATROPIUM 0.5MG/ALBUTEROL 2.5MG INH SOL UD 3ML (DUONEB)(J7620) NEB SCH ×4 (08:00→18:37)
[2019-04-07] MEDS: BUDESONIDE 0.5 MG/2 ML INHALATION SUSPENSION INH SCH ×2 (08:26→18:37)
[2019-04-07] MEDS: TIOTROPIUM INHALER/CAPSULE (SPIRIVA) INH SCH (08:26)
[2019-04-07] MEDS: FORMOTEROL FUMARATE 20 MCG/2 ML INHALATION SOLUTION (PERFOROMIST) INH SCH ×2 (08:26→18:37)
--- NOTE | 2019-04-07 08:36 | IPNPDOC ---
Text Note Date of Service The patient was seen on 04/07/19. NOTE Subjective: Patient seen and examined at bedside. Some episodes of bradycardia overnight down to the 30s. Patient's daughter states staff had woken up patient, and her bradycardia improved. Objective: GENERAL APPEARANCE: AAOx3, on BiPAP, more alert today, in good spirits HEENT: NC/AT, BiPAP in place CARDIOVASCULAR: +S1S2, susan LUNGS: decreased breath sound, CTA ABDOMEN: soft, obese, +BS, NT EXTREMITIES: no edema, chronic venous stasis changes LABORATORY DATA: See below. A/P: 64 yo female, active smoker with COPD/chronic hypoxic resp. failure on 3L O2 at home presents for several day hx of worsening SOB, fevers, cough, hypoxic at home. Found to be in acute hypoxic/hypercapnic respiratory failure, admitted to ICU. #acute/chronic respiratory failure with hypoxia and hypercapnia - baseline 3L supplemental O2 via nasal cannula - currently receiving NIPPV therapy - d/w pulm - assistance greatly appreciated #COPD exacerbation - continue IV steroid, anti-microbial therapy - doxy and ceftriaxone (day #4) - continue respiratory treatments - perforomist, pulmicort, spiriva, duoneb - SCx pending #hyperkalemia - ARB/aldactone on hold - likely secondary to acidosis - slightly worse - ECG pending - continue to follow #HFpEF - compensated - aldactone on hold given hyperkalemia; lasix on hold #HTN - ARB and aldactone on hold given hyperkalemia - currently receiving lopressor as per home Rx #bradycardia - decreased lopressor dosing - continue to monitor #DLP - continue statin therapy #DM T2 - continue ISS - family/patient was requesting regular diet #PAD/carotid artery disease #H/O DVT/PE - therapeutic on coumadin - patient's daughter states that she initially was on a NOAC, however she was not taking her medication properly, and was then switched to coumadin - history not entirely clear as daughter states 'her levels were high' and thus switched to coumadin - recent repeat CTA shows resolution of her previous pulmonary emboli - previously b/l LE DVT, b/l PE #anxiety/depression - continue celexa/remeron #Tobacco abuse - continue with nicotine replacement therapy #GI/DVT prophylaxis - protonix, mechanical prophylaxis, on coumadin VS,Fishbone, I+O VS, Fishbone, I+O Laboratory Tests 04/07/19 04:45 Red Blood Count 5.02, Mean Corpuscular Volume 93.0, Mean Corpuscular Hemoglobin 29.5, Mean Corpuscular Hemoglobin Concent 31.7 L, Red Cell Distribution Width 16.0 H, Neutrophils (%) (Auto) 86.1 H, Lymphocytes (%) (Auto) 10.1 L, Monocytes (%) (Auto) 3.4, Eosinophils (%) (Auto) 0.0, Basophils (%) (Auto) 0.0, Neutrophils # (Auto) 6.3, Lymphocytes # (Auto) 0.7 L, Monocytes # (Auto) 0.3, Eosinophils # (Auto) 0.0, Basophils # (Auto) 0.0, Calcium Level 9.9, Aspartate Amino Transf (AST/SGOT) 15, Alanine Aminotransferase (ALT/SGPT) 16, Alkaline Phosphatase 67, Total Bilirubin 0.2 #, Total Protein 7.2, Albumin 2.7 L Vital Signs Date Time Temp Pulse Resp B/P (MAP) Pulse Ox O2 Delivery O2 Flow Rate FiO2 04/07/19 07:55 186/78 (114) 04/07/19 07:49 96.7 48 22 95 40 04/06/19 20:00 5.0 04/04/19 20:05 BIPAP/CPAP I&O- Last 24 Hours up to 6 AM 04/07/19 05:59 Intake Total 990 ml Output Total 1060 ml Balance -70 ml KAREN NETTLES MD April 07, 2019 08:36
[2019-04-07] MEDS: CitaloPRAM (CeleXA) 20 MG TAB PO SCH (09:57)
[2019-04-07] MEDS: PANTOPRAZOLE 40MG TAB (PROTONIX) PO SCH (09:58)
[2019-04-07] MEDS: METOPROLOL TART 25 MG TABLET PO SCH ×2 (09:59→21:39)
--- NOTE | 2019-04-07 11:09 | CCN ---
DATE OF SERVICE: 04/07/2019 Ms. Adams is seen in ICU. She is sitting up in a chair with nasal cannula. She is using BiPAP for all forms of sleep. She reports that she is continuing to show progressive improvement and feeling that her breathing is getting better. She denies fevers or chills. Her heart rate was low during the night and her medical attending has decreased her Lopressor from 50 twice a day to 25 twice a day. Blood pressures are still labile. Her CLAY inhibitor and diuretics have been held due to hyperkalemia and volume overload. PHYSICAL EXAMINATION Temperature 96.7, pulse 71, respiratory rate 22, blood pressure is 175/75, pulse ox 92% on 3 liters. GENERAL: The patient is alert and oriented times three. She is sitting up in a chair. She speaks in complete sentences. HEENT: Head is normocephalic, atraumatic. Moist mucous membranes. HEART: Regular rate and rhythm. S1-S2. PULMONARY: Expiratory wheezing scattered. No accessory muscle use. ABDOMEN: Positive bowel sounds, soft, nontender. No rebound or guarding. EXTREMITIES: No clubbing, cyanosis or edema. LABS: pH 7.291, pCO2 71.7, pO2 is 111.7. WBC 7.3, hemoglobin 14.8, hematocrit 46.7, platelets 352. Sodium 135, potassium 5.0, chloride 101, carbon dioxide 32, BUN 64, creatinine 1.01, glucose 220, calcium 9.9, total bili 0.2, AST 15, ALT 16, alk phos 67, total protein 7.2, albumin 2.7, PT 32.7, INR 3.11. Sputum culture did grow Moraxella catarrhalis. Blood cultures are negative after 48 hours times two. ASSESSMENT/PLAN: 1. Acute on chronic hypercapnic hypoxic respiratory failure. The patient is continuing with BiPAP for all forms of sleep. She is on oxygen by nasal cannula during the day and is currently on 3 liters which is down from 5 liters. Plan would be to decrease this further as her CO2 is up today. We will try to decrease the oxygen to keep the O2 sat between 87-92. She is continuing with nebulized budesonide and formoterol. She is getting DuoNebs. She is on Spiriva. Sputum culture did grow Moraxella catarrhalis which should be susceptible to the doxycycline that she is on. Will therefore discontinue ceftriaxone. 2. Hyperkalemia. The patient's potassium is decreased to 5.0. Would continue to avoid potassium sparing diuretics. 3. Hypertension. The patient is on Lopressor. She did have heart rates in the 30s and 40s and therefore her medical attending decreased her Lopressor from 50 mg twice a day to 25 mg twice day. Her outpatient CLAY inhibitor and spironolactone have been held because of the hyperkalemia. Would consider restarting an CLAY inhibitor for blood pressure control as long as her potassium is monitored very closely. Would defer to medical team for that. 4. Deep vein thrombosis (DVT) prophylaxis. The patient has a history of DVT. She is on chronic warfarin therapy. She is therapeutic today with an INR of 3.11. She is getting Coumadin 5 mg daily. Continue to monitor. Recheck INR in the morning. Total critical care time excluding all procedures was 46 minutes. MTDD
[2019-04-07] MEDS: BENZONATATE 100 MG CAP PO PRN (11:54)
[2019-04-07 11:55] VITALS: BP 150/67
[2019-04-07 16:05] VITALS: BP 161/70
[2019-04-07] MEDS: ACETAMINOPHEN TAB 650MG DOSE (2X325MG) PO PRN (16:12)
[2019-04-07] MEDS: WARFARIN SOD 5 MG TAB PO SCH (16:12)
[2019-04-07] MEDS ORDERED: traMADol 50 MG TAB PO ONE (18:30)
[2019-04-07 20:00] VITALS: BP 168/72
[2019-04-07] MEDS: MIRTAZAPINE 15 MG TAB PO SCH (21:39)
[2019-04-07] MEDS: SIMVASTATIN 20 MG TAB PO SCH (21:39)
[2019-04-08] VITALS: BP 161/78
[2019-04-08 04:00] VITALS: BP 181/84
[2019-04-08 05:07] LABS: BASO % 0.3 % (0.0-1.0); HEMATOCRIT 46.6 % (36.0-47.0); LYMPH # 1.2 10^3/uL (1.5-4.5); LYMPH % 15.6 % (24.0-44.0); MEAN CORPUSCULAR HEMOGLOBIN 30.5 pg (27.0-33.0); MEAN CORPUSCULAR HGB CONC 32.2 g/dl (32.0-36.5); MEAN CORPUSCULAR VOLUME 94.9 fl (80.0-96.0); MONO # 0.8 10^3/uL (0.0-0.8); MONO % 9.9 % (0.0-5.0); NEUTROPHILS # 5.7 10^3/uL (1.8-7.7); NEUTROPHILS % 73.7 % (36.0-66.0); PLATELET COUNT, AUTOMATED 285 10^3/uL (150-450); RED BLOOD COUNT 4.91 10^6/uL (4.00-5.40); WHITE BLOOD COUNT 7.8 10^3/uL (4.0-10.0)
[2019-04-08 05:18] LABS: INR 3.11; PROTHROMBIN TIME 32.7 SECONDS (12.1-14.4)
[2019-04-08] MEDS: DOXYCYCLINE HYCLATE 100 MG in D5W MINI-BAG PLUS 100 ML IV SCH ×2 (05:21→17:24)
[2019-04-08 05:27] LABS: ALBUMIN 2.6 GM/DL (3.2-5.2); ALT/SGPT 27 U/L (12-78); BILIRUBIN,TOTAL 0.2 MG/DL (0.2-1.0); BLOOD UREA NITROGEN 51 MG/DL (7-18); CARBON DIOXIDE LEVEL 31 MEQ/L (21-32); CHLORIDE LEVEL 102 MEQ/L (98-107); CREATININE FOR GFR 0.82 MG/DL (0.55-1.30); GLOMERULAR FILTRATION RATE > 60.0 (>45); GLUCOSE, FASTING 195 MG/DL (70-100); SODIUM LEVEL 137 MEQ/L (136-145)
[2019-04-08 05:37] LABS: ABG BASE EXCESS 2.8 (-2.0-2.0); ABG HCO3 29.4 MEQ/L (22.0-26.0); ABG PARTIAL PRESSURE CO2 52.9 mmHg (35.0-45.0); ABG PARTIAL PRESSURE O2 76.9 mmHg (75.0-100.0); ABG STANDARD HCO3 26.9 MEQ/L (22.0-26.0); ABG pH (ARTERIAL) 7.363 UNITS (7.350-7.450)
[2019-04-08 05:38] LABS: ABG O2 SATURATION 94.8 % (95.0-99.0)
[2019-04-08] MEDS: BUDESONIDE 0.5 MG/2 ML INHALATION SUSPENSION INH SCH ×2 (07:55→19:54)
[2019-04-08] MEDS: FORMOTEROL FUMARATE 20 MCG/2 ML INHALATION SOLUTION (PERFOROMIST) INH SCH ×2 (07:55→19:54)
[2019-04-08] MEDS: IPRATROPIUM 0.5MG/ALBUTEROL 2.5MG INH SOL UD 3ML (DUONEB)(J7620) NEB SCH ×4 (07:55→19:54)
[2019-04-08] MEDS: TIOTROPIUM INHALER/CAPSULE (SPIRIVA) INH SCH (07:55)
[2019-04-08 08:00] VITALS: BP 159/72
[2019-04-08] MEDS: PANTOPRAZOLE 40MG TAB (PROTONIX) PO SCH (08:34)
[2019-04-08] MEDS: CitaloPRAM (CeleXA) 20 MG TAB PO SCH (08:34)
[2019-04-08] MEDS: predniSONE 20 MG TAB PO SCH (08:34)
[2019-04-08] MEDS: HumaLOG INSULIN (NovoLOG) PER UNIT SC SCH ×4 (08:35→20:26)
[2019-04-08] MEDS: METOPROLOL TART 25 MG TABLET PO SCH ×2 (09:00→20:09)
--- NOTE | 2019-04-08 09:09 | IPNPDOC ---
Text Note Date of Service The patient was seen on 04/08/19. NOTE Subjective: Patient seen and examined at bedside. Some episodes of bradycardia overnight again. Patient unaware of previous issues with bradycardia, but states has had issues with hypokalemia. Denies any medical complaints this morning. Objective: GENERAL APPEARANCE: sitting comfortably in chair, in good spirits HEENT: NC/AT, nasal cannula in place CARDIOVASCULAR: +S1S2, susan LUNGS: decreased breath sound, CTA ABDOMEN: soft, obese, +BS, NT EXTREMITIES: no edema, chronic venous stasis changes LABORATORY DATA: See below. A/P: 64 yo female, active smoker with COPD/chronic hypoxic resp. failure on 3L O2 at home presents for several day hx of worsening SOB, fevers, cough, hypoxic at home. Found to be in acute hypoxic/hypercapnic respiratory failure, admitted to ICU. #acute/chronic respiratory failure with hypoxia and hypercapnia - baseline 3L supplemental O2 via nasal cannula - currently receiving NIPPV therapy at night - d/w pulm - assistance greatly appreciated #COPD exacerbation - continue IV steroid, anti-microbial therapy - #5 - continue respiratory treatments - perforomist, pulmicort, spiriva, duoneb - SCx + moraxella #hyperkalemia - resolved - ARB/aldactone on hold - continue to follow #HFpEF - compensated - aldactone on hold given hyperkalemia; lasix on hold #HTN - ARB and aldactone on hold given hyperkalemia - currently receiving lopressor as per home Rx - elevated - will consider CCB or resuming ARB #bradycardia - decreased lopressor dosing - will add hold parameters -continue to monitor #DLP - continue statin therapy #DM T2 - continue ISS - family/patient was requesting regular diet #PAD/carotid artery disease #H/O DVT/PE - therapeutic on coumading - patient's daughter states that she initially was on a NOAC, however she was not taking her medication properly, and was then switched to coumadin - history not entirely clear as daughter states 'her levels were high' and thus switched to coumadin - recent repeat CTA shows resolution of her previous pulmonary emboli - previously b/l LE DVT, b/l PE #anxiety/depression - continue celexa/remeron #Tobacco abuse - continue with nicotine replacement therapy #GI/DVT prophylaxis - protonix, mechanical prophylaxis, on coumadin Dispo: f/u pulm - plan for table top BiPAP, hold coumadin, resume lower dosage aldactone/ACEI VS,Fishbone, I+O VS, Fishbone, I+O Laboratory Tests 04/08/19 04:45 Red Blood Count 4.91, Mean Corpuscular Volume 94.9, Mean Corpuscular Hemoglobin 30.5, Mean Corpuscular Hemoglobin Concent 32.2, Red Cell Distribution Width 15.7 H, Neutrophils (%) (Auto) 73.7 H, Lymphocytes (%) (Auto) 15.6 L, Monocytes (%) (Auto) 9.9 H, Eosinophils (%) (Auto) 0.0, Basophils (%) (Auto) 0.3, Neutrophils # (Auto) 5.7, Lymphocytes # (Auto) 1.2 L, Monocytes # (Auto) 0.8, Eosinophils # (Auto) 0.0, Basophils # (Auto) 0.0, Calcium Level 10.0, Aspartate Amino Transf (AST/SGOT) 32, Alanine Aminotransferase (ALT/SGPT) 27, Alkaline Phosphatase 57, Total Bilirubin 0.2, Total Protein 7.0, Albumin 2.6 L Vital Signs Date Time Temp Pulse Resp B/P (MAP) Pulse Ox O2 Delivery O2 Flow Rate FiO2 04/08/19 04:30 56 91 2.0 04/08/19 04:00 98.6 26 181/84 (116) 30 04/04/19 20:05 BIPAP/CPAP I&O- Last 24 Hours up to 6 AM 04/08/19 06:00 Intake Total 1640 ml Output Total 2015 ml Balance -375 ml KAREN NETTLES MD April 08, 2019 09:09
[2019-04-08] MEDS: BENZONATATE 100 MG CAP PO PRN ×2 (10:59→22:05)
[2019-04-08 12:00] VITALS: BP 157/74
[2019-04-08] MEDS ORDERED: PILL CUTTER 1 EACH XX PRN (12:00)
[2019-04-08] MEDS: LOSARTAN 25 MG TAB PO SCH (12:20)
--- NOTE | 2019-04-08 13:40 | CCN ---
DATE: 04/08/2019 CRITICAL CARE PROGRESS NOTE: The patient was seen and examined this morning during bedside rounds. The patient was sitting on 2 liters nasal cannula in a chair and reported some improvement in her shortness of breath. She does continue to have some occasional cough but denies any chest pain. No fevers or chills. She denies any significant wheezing currently. PHYSICAL EXAMINATION: Temperature 98.6, pulse 56, respirations 26, blood pressure 181/84, oxygen saturation 91% on 2 liters nasal cannula. Ins 1.5 liters, out approximately 2 liters. General: The patient is awake, alert and oriented. She is not in any acute respiratory distress, is able to speak in complete sentences. HEENT: She is normocephalic, atraumatic. Has moist mucous membranes. Neck is supple. Trachea is midline. Heart: Regular rate and rhythm. Normal S1, S2. There is a systolic murmur auscultated loudest in the left sternal border. Pulmonary: She has diminished breath sounds bilaterally with some crackles at the bases and some prolonged expiration but no significant wheezing noted. Abdomen is soft, nontender, nondistended. Extremities: There is evidence of chronic venous stasis skin changes but no significant lower extremity edema. LABORATORY DATA: WBC 7.8, hemoglobin 15.0, platelets 285. Chemistry: Sodium is 137, potassium 5.0, chloride 102, bicarbonate 31, BUN 51, creatinine 0.82, glucose is 195. INR 3.11. ABG: pH 7.363, pCO2 of 52.9, pO2 of 76.9. Sputum culture was positive for Moraxella. ASSESSMENT AND PLAN: The patient is a 64-year-old female with the history of chronic obstructive pulmonary disease (COPD) and chronic hypoxemic respiratory failure on 2-3 liters nasal cannula at home, history of congestive heart failure (CHF), hypertension, diabetes, history of deep venous thrombosis (DVT)/pulmonary embolism (PE) on Coumadin, who presented with complaint of increasing shortness of breath and cough with acute on chronic hypoxemic and hypercapnic respiratory failure. The patient was started on antibiotics and steroids for likely acute COPD exacerbation and possible pneumonia with a positive sputum culture for Moraxella. She was also placed on bilevel positive airway pressure (BiPAP) with improvement in her hypercapnic respiratory failure. - Continue with the prednisone and continue a slow taper of steroids. Continue with antibiotics. Would complete a 7-day course and then discontinue. Continue with her nebulizers and inhaler medications for her COPD. - The patient currently is at baseline on 2 liters nasal cannula oxygen supplementation. Would continue her with BiPAP at night and change her to be a tabletop with the current settings of 22/12 and FiO2 of 35%. The patient may require BiPAP at home for her chronic hypercarbic respiratory failure. However, she would need a nocturnal oximetry done showing significant desaturation while on her usual nasal cannula supplementation and does not show evidence to suggest EDWINA. She can get her nocturnal oximetry study done while in the hospital and can follow-up with pulmonary as an outpatient to determine further testing. - The patient's Aldactone and diuretics were on hold. However, she appears hypertensive and she did have some increased brain natriuretic peptide (BNP). Would restart her diuretics and antihypertensive medications. - Continue with Coumadin for anticoagulation. She appears to be therapeutic at this time. - Continue with gastrointestinal (GI) prophylaxis. - Continue with nicotine patch for smoking cessation. Deep venous thrombosis (DVT) prophylaxis with Coumadin. Code status: DO NOT RESUSCITATE/DO NOT INTUBATE. Total critical care time spent not including any procedures approximately 35 minutes. Please do not hesitate to call for any further questions or concerns. The patient can followup with pulmonary as an outpatient in 2-3 weeks after discharge. ALENA
[2019-04-08 16:00] VITALS: BP 157/70
[2019-04-08 18:00] VITALS: BP 170/74
[2019-04-08] MEDS: MIRTAZAPINE 15 MG TAB PO SCH (20:08)
[2019-04-08] MEDS: SIMVASTATIN 20 MG TAB PO SCH (20:09)
[2019-04-09] VITALS (10 sets, daily range): BP systolic 152–201; BP diastolic 67–86
[2019-04-09 03:33] LABS: HEMATOCRIT 45.9 % (36.0-47.0); HEMOGLOBIN 14.5 g/dl (12.0-15.5); MEAN CORPUSCULAR HEMOGLOBIN 29.2 pg (27.0-33.0); MEAN CORPUSCULAR HGB CONC 31.6 g/dl (32.0-36.5); MEAN CORPUSCULAR VOLUME 92.4 fl (80.0-96.0); PLATELET COUNT, AUTOMATED 269 10^3/uL (150-450); RED BLOOD COUNT 4.97 10^6/uL (4.00-5.40); WHITE BLOOD COUNT 8.5 10^3/uL (4.0-10.0)
[2019-04-09 03:43] LABS: INR 2.27; PROTHROMBIN TIME 25.5 SECONDS (12.1-14.4)
[2019-04-09 04:00] LABS: BLOOD UREA NITROGEN 39 MG/DL (7-18); CARBON DIOXIDE LEVEL 33 MEQ/L (21-32); CHLORIDE LEVEL 102 MEQ/L (98-107); CREATININE FOR GFR 0.73 MG/DL (0.55-1.30); GLOMERULAR FILTRATION RATE > 60.0 (>45); GLUCOSE, FASTING 233 MG/DL (70-100); POTASSIUM SERUM 4.6 MEQ/L (3.5-5.1); SODIUM LEVEL 139 MEQ/L (136-145)
[2019-04-09] MEDS: DOXYCYCLINE HYCLATE 100 MG in D5W MINI-BAG PLUS 100 ML IV SCH ×2 (05:49→16:56)
[2019-04-09] MEDS: FORMOTEROL FUMARATE 20 MCG/2 ML INHALATION SOLUTION (PERFOROMIST) INH SCH ×2 (07:52→20:24)
[2019-04-09] MEDS: BUDESONIDE 0.5 MG/2 ML INHALATION SUSPENSION INH SCH ×2 (07:52→20:24)
[2019-04-09] MEDS: IPRATROPIUM 0.5MG/ALBUTEROL 2.5MG INH SOL UD 3ML (DUONEB)(J7620) NEB SCH ×4 (07:53→20:00)
[2019-04-09] MEDS: TIOTROPIUM INHALER/CAPSULE (SPIRIVA) INH SCH (07:53)
[2019-04-09] MEDS: METOPROLOL TART 25 MG TABLET PO SCH ×2 (09:00→21:06)
[2019-04-09] MEDS ORDERED: SPIRONOLACTONE 12.5MG PER 1/2 TABLET PO SCH (09:00)
[2019-04-09] MEDS: predniSONE 20 MG TAB PO SCH (09:17)
[2019-04-09] MEDS: CitaloPRAM (CeleXA) 20 MG TAB PO SCH (09:17)
[2019-04-09] MEDS: PANTOPRAZOLE 40MG TAB (PROTONIX) PO SCH (09:17)
[2019-04-09] MEDS: HumaLOG INSULIN (NovoLOG) PER UNIT SC SCH ×4 (09:18→21:06)
[2019-04-09] MEDS: LOSARTAN 25 MG TAB PO SCH (10:08)
--- NOTE | 2019-04-09 11:49 | IPNPDOC ---
Text Note Date of Service The patient was seen on 04/09/19. NOTE Subjective: Patient seen and examined at bedside. Some episodes of bradycardia overnight again. Patient unaware of previous issues with bradycardia, but states has had issues with hypokalemia. Denies any medical complaints this morning. Objective: GENERAL APPEARANCE: sitting comfortably in chair, in good spirits HEENT: NC/AT, nasal cannula in place CARDIOVASCULAR: +S1S2, susan LUNGS: decreased breath sound, CTA ABDOMEN: soft, obese, +BS, NT EXTREMITIES: no edema, chronic venous stasis changes LABORATORY DATA: See below. A/P: 64 yo female, active smoker with COPD/chronic hypoxic resp. failure on 3L O2 at home presents for several day hx of worsening SOB, fevers, cough, hypoxic at home. Found to be in acute hypoxic/hypercapnic respiratory failure, admitted to ICU. #acute/chronic respiratory failure with hypoxia and hypercapnia - baseline 3L supplemental O2 via nasal cannula - currently receiving table top NIPPV therapy at night - d/w pulm - assistance greatly appreciated #COPD exacerbation - continue steroids, IV anti-microbial therapy - #6 - continue respiratory treatments - perforomist, pulmicort, spiriva, duoneb - SCx + moraxella #hyperkalemia - resolved - resumed ARB and aldactone at lower dosage - continue to follow #HFpEF - compensated - aldactone on hold given hyperkalemia; lasix on hold #HTN - ARB and aldactone resumed - currently receiving lopressor as per home Rx - elevated - continue to follow clinically - caution with ARB/aldactone given hyperkalemia #bradycardia - decreased lopressor dosing - continue to monitor #DLP - continue statin therapy #DM T2 - continue ISS - family/patient was requesting regular diet #PAD/carotid artery disease #H/O DVT/PE - therapeutic on coumadin - patient's daughter states that she initially was on a NOAC, however she was not taking her medication properly, and was then switched to coumadin - history not entirely clear as daughter states 'her levels were high' and thus switched to coumadin - recent repeat CTA shows resolution of her previous pulmonary emboli - previously b/l LE DVT, b/l PE #anxiety/depression - continue celexa/remeron #Tobacco abuse - continue with nicotine replacement therapy #GI/DVT prophylaxis - protonix, mechanical prophylaxis, on coumadin Dispo: f/u pulm, monitor blood pressures/potassium, INR; PT; transfer to PCU VS,[place], I+O VS, [place], I+O Laboratory Tests 04/09/19 03:15 Red Blood Count 4.97, Mean Corpuscular Volume 92.4, Mean Corpuscular Hemoglobin 29.2, Mean Corpuscular Hemoglobin Concent 31.6 L, Red Cell Distribution Width 15.9 H, Calcium Level 10.0 Vital Signs Date Time Temp Pulse Resp B/P (MAP) Pulse Ox O2 Delivery O2 Flow Rate FiO2 04/09/19 10:08 148/67 04/09/19 09:00 58 04/09/19 08:00 2.0 04/09/19 07:51 97.4 24 93 04/09/19 04:00 30 04/04/19 20:05 BIPAP/CPAP I&O- Last 24 Hours up to 6 AM 04/09/19 06:00 Intake Total 1160 ml Output Total 1350 ml Balance -190 ml KAREN NETTLES MD Apr 09, 2019 11:49
[2019-04-09] MEDS ORDERED: SLF 3 ML SYR IV PRN (16:00)
[2019-04-09] MEDS: WARFARIN SOD 5 MG TAB PO SCH (16:56)
[2019-04-09] MEDS: SIMVASTATIN 20 MG TAB PO SCH (21:05)
[2019-04-09] MEDS: MIRTAZAPINE 15 MG TAB PO SCH (21:05)
[2019-04-09] MEDS: SLF 3 ML SYR IV SCH (21:06)
[2019-04-10] VITALS (7 sets, daily range): BP systolic 138–194; BP diastolic 62–90
[2019-04-10] MEDS: LOSARTAN 25 MG TAB PO SCH ×3 (04:36→20:26)
[2019-04-10] MEDS: SLF 3 ML SYR IV SCH ×3 (04:36→20:26)
[2019-04-10 04:57] LABS: HEMATOCRIT 46.7 % (36.0-47.0); HEMOGLOBIN 14.7 g/dl (12.0-15.5); MEAN CORPUSCULAR HEMOGLOBIN 29.5 pg (27.0-33.0); MEAN CORPUSCULAR HGB CONC 31.5 g/dl (32.0-36.5); MEAN CORPUSCULAR VOLUME 93.8 fl (80.0-96.0); PLATELET COUNT, AUTOMATED 263 10^3/uL (150-450); RED BLOOD COUNT 4.98 10^6/uL (4.00-5.40); WHITE BLOOD COUNT 9.6 10^3/uL (4.0-10.0)
[2019-04-10 05:11] LABS: INR 1.79; PROTHROMBIN TIME 21.1 SECONDS (12.1-14.4)
[2019-04-10 05:12] LABS: BLOOD UREA NITROGEN 32 MG/DL (7-18); CALCIUM LEVEL 9.3 MG/DL (8.8-10.2); CARBON DIOXIDE LEVEL 32 MEQ/L (21-32); CHLORIDE LEVEL 103 MEQ/L (98-107); CREATININE FOR GFR 0.73 MG/DL (0.55-1.30); GLOMERULAR FILTRATION RATE > 60.0 (>45); GLUCOSE, FASTING 201 MG/DL (70-100); POTASSIUM SERUM 4.3 MEQ/L (3.5-5.1); SODIUM LEVEL 141 MEQ/L (136-145)
[2019-04-10] MEDS: DOXYCYCLINE HYCLATE 100 MG in D5W MINI-BAG PLUS 100 ML IV SCH ×2 (05:33→17:16)
[2019-04-10] MEDS: IPRATROPIUM 0.5MG/ALBUTEROL 2.5MG INH SOL UD 3ML (DUONEB)(J7620) NEB SCH ×4 (07:15→20:00)
[2019-04-10] MEDS: BUDESONIDE 0.5 MG/2 ML INHALATION SUSPENSION INH SCH ×2 (07:17→20:29)
[2019-04-10] MEDS: FORMOTEROL FUMARATE 20 MCG/2 ML INHALATION SOLUTION (PERFOROMIST) INH SCH ×2 (07:17→20:30)
[2019-04-10] MEDS: TIOTROPIUM INHALER/CAPSULE (SPIRIVA) INH SCH (07:17)
[2019-04-10] MEDS: predniSONE 20 MG TAB PO SCH (08:34)
[2019-04-10] MEDS: HumaLOG INSULIN (NovoLOG) PER UNIT SC SCH ×4 (08:34→19:39)
[2019-04-10] MEDS: PANTOPRAZOLE 40MG TAB (PROTONIX) PO SCH (08:34)
[2019-04-10] MEDS: METOPROLOL TART 25 MG TABLET PO SCH ×2 (08:34→20:23)
[2019-04-10] MEDS: SPIRONOLACTONE 25 MG TAB PO SCH (08:34)
[2019-04-10] MEDS: CitaloPRAM (CeleXA) 20 MG TAB PO SCH (08:34)
--- NOTE | 2019-04-10 08:38 | IPNPDOC ---
Text Note Date of Service The patient was seen on 04/10/19. NOTE Subjective: Patient seen and examined at bedside. No acute overnight events reported. Denies any medical complaints this morning. Objective: GENERAL APPEARANCE: lying comfortably in bed; BiPAP in place HEENT: NC/AT, wearing BiPAP mask CARDIOVASCULAR: +S1S2, susan LUNGS: CTA ABDOMEN: soft, obese, +BS, NT EXTREMITIES: no edema, chronic venous stasis changes LABORATORY DATA: See below. A/P: 64 yo female, active smoker with COPD/chronic hypoxic resp. failure on 3L O2 at home presents for several day hx of worsening SOB, fevers, cough, hypoxic at home. Found to be in acute hypoxic/hypercapnic respiratory failure, admitted to ICU. #acute/chronic respiratory failure with hypoxia and hypercapnia - baseline 3L supplemental O2 via nasal cannula - currently receiving table top NIPPV therapy at night #COPD exacerbation - continue prednisone, IV anti-microbial therapy - doxy day #7 - continue respiratory treatments - perforomist, pulmicort, spiriva, duoneb - SCx + moraxella #hyperkalemia - resolved - resumed ARB and aldactone at lower dosage - continue to follow #HFpEF - compensated - aldactone on hold given hyperkalemia; lasix on hold #HTN - ARB and aldactone resumed - currently receiving lopressor as per home Rx - elevated - continue to follow clinically - caution with ARB/aldactone given hyperkalemia #bradycardia - decreased lopressor dosing - continue to monitor #DLP - continue statin therapy #DM T2 - continue ISS - family/patient was requesting regular diet #PAD/carotid artery disease #H/O DVT/PE - therapeutic on coumadin - patient's daughter states that she initially was on a NOAC, however she was not taking her medication properly, and was then switched to coumadin - history not entirely clear as daughter states 'her levels were high' and thus switched to coumadin - recent repeat CTA shows resolution of her previous pulmonary emboli - previously b/l LE DVT, b/l PE #anxiety/depression - continue celexa/remeron #Tobacco abuse - continue with nicotine replacement therapy #GI/DVT prophylaxis - protonix, mechanical prophylaxis, on coumadin Dispo: f/u pulm, monitor blood pressures/potassium, INR; PT VS,Fishbone, I+O VS, Fishbone, I+O Laboratory Tests 04/10/19 04:26 Red Blood Count 4.98, Mean Corpuscular Volume 93.8, Mean Corpuscular Hemoglobin 29.5, Mean Corpuscular Hemoglobin Concent 31.5 L, Red Cell Distribution Width 15.9 H, Calcium Level 9.3 Vital Signs Date Time Temp Pulse Resp B/P (MAP) Pulse Ox O2 Delivery O2 Flow Rate FiO2 04/10/19 08:34 47 150/66 04/10/19 04:00 99.2 18 94 2.0 04/09/19 04:00 30 04/04/19 20:05 BIPAP/CPAP I&O- Last 24 Hours up to 6 AM 04/10/19 06:00 Intake Total 700 ml Output Total 1750 ml Balance -1050 ml KAREN NETTLES MD Apr 10, 2019 08:38
[2019-04-10] MEDS: WARFARIN SOD 5 MG TAB PO SCH (17:16)
[2019-04-10] MEDS: MIRTAZAPINE 15 MG TAB PO SCH (20:26)
[2019-04-10] MEDS: SIMVASTATIN 20 MG TAB PO SCH (20:26)
[2019-04-11] VITALS (8 sets, daily range): BP systolic 164–212; BP diastolic 60–88
[2019-04-11] MEDS ORDERED: LOSARTAN 50 MG TAB PO ONE (04:34)
[2019-04-11 05:39] LABS: HEMATOCRIT 45.9 % (36.0-47.0); HEMOGLOBIN 14.7 g/dl (12.0-15.5); MEAN CORPUSCULAR HEMOGLOBIN 29.3 pg (27.0-33.0); MEAN CORPUSCULAR VOLUME 91.4 fl (80.0-96.0); PLATELET COUNT, AUTOMATED 268 10^3/uL (150-450); RED BLOOD COUNT 5.02 10^6/uL (4.00-5.40); WHITE BLOOD COUNT 11.9 10^3/uL (4.0-10.0)
[2019-04-11] MEDS: DOXYCYCLINE HYCLATE 100 MG in D5W MINI-BAG PLUS 100 ML IV SCH (05:50)
[2019-04-11 05:53] LABS: INR 1.71; PROTHROMBIN TIME 20.4 SECONDS (12.1-14.4)
[2019-04-11 05:58] LABS: BLOOD UREA NITROGEN 27 MG/DL (7-18); CALCIUM LEVEL 9.8 MG/DL (8.8-10.2); CARBON DIOXIDE LEVEL 31 MEQ/L (21-32); CHLORIDE LEVEL 102 MEQ/L (98-107); CREATININE FOR GFR 0.68 MG/DL (0.55-1.30); GLOMERULAR FILTRATION RATE > 60.0 (>45); GLUCOSE, FASTING 147 MG/DL (70-100); POTASSIUM SERUM 4.1 MEQ/L (3.5-5.1); SODIUM LEVEL 140 MEQ/L (136-145)
[2019-04-11] MEDS: SLF 3 ML SYR IV SCH ×3 (06:13→21:42)
[2019-04-11] MEDS: TIOTROPIUM INHALER/CAPSULE (SPIRIVA) INH SCH (07:46)
[2019-04-11] MEDS: FORMOTEROL FUMARATE 20 MCG/2 ML INHALATION SOLUTION (PERFOROMIST) INH SCH ×2 (07:46→20:38)
[2019-04-11] MEDS: BUDESONIDE 0.5 MG/2 ML INHALATION SUSPENSION INH SCH ×2 (07:46→20:38)
[2019-04-11] MEDS: IPRATROPIUM 0.5MG/ALBUTEROL 2.5MG INH SOL UD 3ML (DUONEB)(J7620) NEB SCH ×4 (07:47→20:00)
[2019-04-11] MEDS: LOSARTAN 50 MG TAB PO SCH ×2 (08:05→20:42)
[2019-04-11] MEDS: CitaloPRAM (CeleXA) 20 MG TAB PO SCH (08:28)
[2019-04-11] MEDS: HumaLOG INSULIN (NovoLOG) PER UNIT SC SCH ×4 (08:28→20:42)
[2019-04-11] MEDS: METOPROLOL TART 25 MG TABLET PO SCH ×2 (08:29→20:33)
[2019-04-11] MEDS: predniSONE 20 MG TAB PO SCH (08:29)
[2019-04-11] MEDS: SPIRONOLACTONE 25 MG TAB PO SCH (08:29)
[2019-04-11] MEDS: FUROSEMIDE 40 MG TAB PO SCH (08:29)
[2019-04-11] MEDS: PANTOPRAZOLE 40MG TAB (PROTONIX) PO SCH (08:29)
--- NOTE | 2019-04-11 08:32 | IPNPDOC ---
Text Note Date of Service The patient was seen on 04/11/19. NOTE Subjective: Patient seen and examined at bedside. No acute overnight events reported. Denies any medical complaints this morning. Objective: GENERAL APPEARANCE: lying comfortably in bed; BiPAP in place HEENT: NC/AT, wearing BiPAP mask CARDIOVASCULAR: +S1S2, susan, systolic murmur LUNGS: CTA ABDOMEN: soft, obese, +BS, NT EXTREMITIES: no edema, chronic venous stasis changes LABORATORY DATA: See below. A/P: 64 yo female, active smoker with COPD/chronic hypoxic resp. failure on 3L O2 at home presents for several day hx of worsening SOB, fevers, cough, hypoxic at home. Found to be in acute hypoxic/hypercapnic respiratory failure, admitted to ICU. #acute/chronic respiratory failure with hypoxia and hypercapnia - baseline 3L supplemental O2 via nasal cannula - currently receiving table top NIPPV therapy at night #COPD exacerbation - continue prednisone, IV anti-microbial therapy - dox day #8 - to complete 10 days - continue respiratory treatments - perforomist, pulmicort, spiriva, duoneb - SCx + moraxella #hyperkalemia - resolved - resumed ARB and aldactone at lower dosage - continue to follow #HFpEF - compensated - aldactone on hold given hyperkalemia; lasix on hold #HTN - still uncontrolled - limited by bradycardia and hyperkalemia - ARB and aldactone resumed - currently receiving lopressor from home meds at reduced dosage due to bradycardia #bradycardia - decreased lopressor dosing - continue to monitor #DLP - continue statin therapy #DM T2 - continue ISS - family/patient was requesting regular diet #PAD/carotid artery disease #H/O DVT/PE - sub-therapeutic on coumadin - increase dosage - continue to monitor INR - patient's daughter states that she initially was on a NOAC, however she was not taking her medication properly, and was then switched to coumadin - history not entirely clear as daughter states 'her levels were high' and thus switched to coumadin - recent repeat CTA shows resolution of her previous pulmonary emboli - previously b/l LE DVT, b/l PE #anxiety/depression - continue celexa/remeron #Tobacco abuse - continue with nicotine replacement therapy #GI/DVT prophylaxis - protonix, mechanical prophylaxis, on coumadin Dispo: f/u pulm, monitor blood pressures/potassium, INR; PT VS,Fishbone, I+O VS, Fishbone, I+O Laboratory Tests 04/11/19 05:10 Red Blood Count 5.02, Mean Corpuscular Volume 91.4, Mean Corpuscular Hemoglobin 29.3, Mean Corpuscular Hemoglobin Concent 32.0, Red Cell Distribution Width 16.1 H, Calcium Level 9.8 Vital Signs Date Time Temp Pulse Resp B/P (MAP) Pulse Ox O2 Delivery O2 Flow Rate FiO2 04/11/19 08:05 190/78 04/11/19 08:03 64 04/11/19 07:15 2.0 04/11/19 04:00 97.2 20 97 04/10/19 20:30 Nasal Cannula 04/09/19 04:00 30 I&O- Last 24 Hours up to 6 AM 04/11/19 06:00 Intake Total 980 ml Output Total 1550 ml Balance -570 ml KAREN NETTLES MD Apr 11, 2019 08:32
[2019-04-11] MEDS: amLODIPine 5 MG TAB PO SCH (11:26)
[2019-04-11] MEDS ORDERED: WARFARIN SOD 2.5 MG TAB PO ONE (17:00)
[2019-04-11] MEDS: WARFARIN SOD 7.5 MG TAB PO SCH (17:11)
[2019-04-11] MEDS: **hydrALAZINE HCL** 25 MG TAB PO SCH (17:47)
[2019-04-11] MEDS: DOXYCYCLINE HYCLATE 100 MG TAB PO SCH (20:41)
[2019-04-11] MEDS: SIMVASTATIN 20 MG TAB PO SCH (20:41)
[2019-04-11] MEDS: MIRTAZAPINE 15 MG TAB PO SCH (20:41)
[2019-04-12] MEDS: **hydrALAZINE HCL** 25 MG TAB PO SCH ×2 (00:09→05:56)
[2019-04-12 04:00] VITALS: BP 165/67
[2019-04-12 05:48] LABS: HEMATOCRIT 45.2 % (36.0-47.0); HEMOGLOBIN 14.7 g/dl (12.0-15.5); MEAN CORPUSCULAR HEMOGLOBIN 30.2 pg (27.0-33.0); MEAN CORPUSCULAR HGB CONC 32.5 g/dl (32.0-36.5); MEAN CORPUSCULAR VOLUME 92.8 fl (80.0-96.0); PLATELET COUNT, AUTOMATED 260 10^3/uL (150-450); RED BLOOD COUNT 4.87 10^6/uL (4.00-5.40); WHITE BLOOD COUNT 11.9 10^3/uL (4.0-10.0)
[2019-04-12] MEDS: SLF 3 ML SYR IV SCH ×3 (05:52→22:18)
[2019-04-12 06:02] LABS: INR 1.78
[2019-04-12 06:06] LABS: BLOOD UREA NITROGEN 28 MG/DL (7-18); CALCIUM LEVEL 9.5 MG/DL (8.8-10.2); CARBON DIOXIDE LEVEL 31 MEQ/L (21-32); CHLORIDE LEVEL 100 MEQ/L (98-107); CREATININE FOR GFR 0.65 MG/DL (0.55-1.30); GLOMERULAR FILTRATION RATE > 60.0 (>45); GLUCOSE, FASTING 145 MG/DL (70-100); POTASSIUM SERUM 4.2 MEQ/L (3.5-5.1); SODIUM LEVEL 138 MEQ/L (136-145)
[2019-04-12] MEDS: IPRATROPIUM 0.5MG/ALBUTEROL 2.5MG INH SOL UD 3ML (DUONEB)(J7620) NEB SCH ×4 (08:00→19:47)
[2019-04-12 09:00] VITALS: BP 190/90
[2019-04-12] MEDS: HumaLOG INSULIN (NovoLOG) PER UNIT SC SCH ×4 (09:39→20:21)
[2019-04-12] MEDS: FUROSEMIDE 40 MG TAB PO SCH (09:39)
[2019-04-12] MEDS: METOPROLOL TART 25 MG TABLET PO SCH ×2 (09:40→20:23)
[2019-04-12] MEDS: SPIRONOLACTONE 25 MG TAB PO SCH (09:40)
[2019-04-12] MEDS: PANTOPRAZOLE 40MG TAB (PROTONIX) PO SCH (09:40)
[2019-04-12] MEDS: LOSARTAN 50 MG TAB PO SCH ×2 (09:40→20:23)
[2019-04-12] MEDS: predniSONE 20 MG TAB PO SCH (09:40)
[2019-04-12] MEDS: DOXYCYCLINE HYCLATE 100 MG TAB PO SCH ×2 (09:41→20:22)
[2019-04-12] MEDS: CitaloPRAM (CeleXA) 20 MG TAB PO SCH (09:41)
[2019-04-12] MEDS: amLODIPine 5 MG TAB PO SCH (09:41)
--- NOTE | 2019-04-12 09:48 | REP ---
DUPLEX DOPPLER RENAL ARTERY EVALUATION: Real-time ultrasound evaluation and duplex Doppler interrogation of the renal arteries is performed bilaterally. Peak systolic velocity of the abdominal aorta at the level of the renal arteries is 103 cm/s. Main right renal artery demonstrates peak systolic velocity in the mid aspect 120 cm/s, renal to aortic ratio 1.16. Resistive indices are measured in the upper, mid, and lower thirds of the right kidney and range between 0.78 and 0.81. Acceleration times range between 0.02 and 0.024. Peak systolic velocity of the main left renal artery is 119 cm/s, renal to aortic ration 1.15. Resistive indices of the left kidney range between 0.81 and 0.086. Acceleration times range between 0.02 and 0.024. IMPRESSION: No compelling duplex Doppler sonographic evidence of significant renal artery stenosis. Elevated resistive indices suggest chronic disease involving the microvasculature. Electronically Signed by Oh Teresa MD 04/12/2019 12:32 P
--- NOTE | 2019-04-12 11:02 | IPNPDOC ---
Subjective Date Seen The patient was seen on 04/12/19. Subjective Chief Complaint/HPI 64 yo female, active smoker with COPD/chronic hypoxic resp. failure on 3L O2 at home presents for several day hx of worsening SOB, fevers, cough, hypoxic at home. Found to be in acute hypoxic/hypercapnic respiratory failure, admitted to ICU and downgraded to PCU. Requiring bipap at HS, Sputum with moraxella and sensitive to rocephin (treated 04/04-04/06) and doxycycline (04/07 to current). She continues to have elevated blood pressures. She is being monitoring for her DM with hyperglycemia. Currently patient states no PALMER, no cough, no CP, chronic SOB/WEBER; daughter present in room and states chronic poorly controlled BP. patient lost IV access during night and IV doxy changed to oral Other systems Current Medications Acetaminophen (Tylenol Tab) 650 mg Q4H PRN PO PAIN OR FEVER Last administered on 04/07/19at 16:12; Start 04/04/19 at 16:45 Acetaminophen (Tylenol Tab) 1,000 mg QHS PO ; Start 04/04/19 at 21:00; Stop 04/04/19 at 21:00; Status DC Albuterol/ Ipratropium (Duoneb (Ipr 0.5mg/Alb 2.5mg)) 3 ml Q4H PRN INH SHORTNESS OF BREATH; Start 04/04/19 at 16:45 Albuterol/ Ipratropium (Duoneb (Ipr 0.5mg/Alb 2.5mg)) 3 ml RQID NEB Last administered on 04/11/19at 16:01; Start 04/04/19 at 20:00 Amlodipine Besylate (Norvasc) 5 mg DAILY PO Last administered on 04/11/19at 11:26; Start 04/11/19 at 11:30 Benzonatate (Tessalon Perles) 100 mg BID PO Last administered on 04/06/19at 09:19; Start 04/05/19 at 21:00; Stop 04/06/19 at 13:07; Status DC Benzonatate (Tessalon Perles) 200 mg TIDP PRN PO cough Last administered on 04/08/19at 22:05; Start 04/06/19 at 13:15 Budesonide (Pulmicort) 0.5 mg RBID INH Last administered on 04/11/19at 20:38; Start 04/04/19 at 20:00 Ceftriaxone Sodium 1 gm/ Dextrose 50 ml @ 100 mls/hr Q24H IV Last administered on 04/06/19at 17:21; Start 04/04/19 at 17:00; Stop 04/07/19 at 10:43; Status DC Citalopram Hydrobromide (CeleXA) 20 mg DAILY PO Last administered on 04/11/19at 08:28; Start 04/05/19 at 09:00 Dextrose (Dextrose 50%) 25 ml ASDIRECTED PRN IV SEE LABEL COMMENTS; Start 04/04/19 at 16:45 Dextrose (Dextrose 50%) 25 ml ASDIRECTED PRN IV SEE LABEL COMMENTS; Start 04/06/19 at 09:30; Status UNV Diphenhydramine HCl (Benadryl) 50 mg QHS PO ; Start 04/04/19 at 21:00; Stop 04/04/19 at 21:00; Status DC Doxycycline Hyclate (Vibramycin) 100 mg BID PO Last administered on 04/11/19at 20:41; Start 04/11/19 at 21:00 Doxycycline Hyclate 100 mg/ Dextrose 100 ml @ 100 mls/hr Q12H IV Last administered on 04/11/19at 05:50; Start 04/04/19 at 18:00; Stop 04/11/19 at 12:09; Status DC Formoterol Fumarate (Perforomist) 20 mcg RBID INH Last administered on 04/11/19at 20:38; Start 04/04/19 at 20:00 Furosemide (Lasix) 40 mg DAILY PO Last administered on 04/11/19at 08:29; Start 04/11/19 at 09:00 Furosemide (Lasix) 80 mg DAILY PO ; Start 04/05/19 at 09:00; Stop 04/05/19 at 09:20; Status DC Glucagon (Glucagon) 1 mg ASDIRECTED PRN SC SEE LABEL COMMENTS; Start 04/04/19 at 16:45 Glucagon (Glucagon) 1 mg ASDIRECTED PRN SC SEE LABEL COMMENTS; Start 04/06/19 at 09:30; Status UNV Glucose (Glucose) 16 GM ASDIRECTED PRN PO SEE LABEL COMMENTS; Start 04/04/19 at 16:45 Glucose (Glucose) 16 GM ASDIRECTED PRN PO SEE LABEL COMMENTS; Start 04/06/19 at 09:30; Status UNV Home Med (Med Rec Complete!) ASDIRECTED XX ; Start 04/04/19 at 15:15; Stop 04/04/19 at 15:15; Status DC Hydralazine HCl (Apresoline) 25 mg Q6H PO Last administered on 04/12/19at 05:56; Start 04/11/19 at 18:00 Insulin Human Lispro (HumaLOG INSULIN) SEE PROTOCOL TABLE Q6H SC Last administered on 04/06/19at 08:20; Start 04/06/19 at 06:00; Stop 04/06/19 at 09:29; Status DC Insulin Human Lispro (HumaLOG INSULIN) See Protocol Table AC SC Last administered on 04/05/19at 17:58; Start 04/04/19 at 17:30; Stop 04/06/19 at 08:03; Status DC Insulin Human Lispro (HumaLOG INSULIN) See Protocol Table AC SC Last administered on 04/11/19at 17:47; Start 04/06/19 at 12:00 Insulin Human Lispro (HumaLOG INSULIN) See Protocol Table QHS SC Last administered on 04/04/19at 20:46; Start 04/04/19 at 21:00; Stop 04/06/19 at 08:03; Status DC Insulin Human Lispro (HumaLOG INSULIN) See Protocol Table QHS SC Last admin istered on 04/11/19at 20:42; Start 04/06/19 at 21:00 Losartan Potassium (Cozaar) 12.5 mg DAILY PO Last administered on 04/10/19at 04:36; Start 04/08/19 at 12:00; Stop 04/10/19 at 07:04; Status DC Losartan Potassium (Cozaar) 25 mg BID PO Last administered on 04/10/19at 20:26; Start 04/10/19 at 09:00; Stop 04/11/19 at 04:08; Status DC Losartan Potassium (Cozaar) 50 mg BID PO Last administered on 04/11/19at 20:42; Start 04/11/19 at 09:00 Losartan Potassium (Cozaar) 50 mg DAILY PO ; Start 04/05/19 at 09:00; Stop 04/05/19 at 09:00; Status DC Methylprednisolone (SOLU medrol) 40 mg Q6H IV Last administered on 04/07/19 09:57; Start 04/04/19 at 21:00; Stop 04/07/19 at 10:43; Status DC Metoprolol Tartrate (Lopressor) 25 mg BID PO Last administered on 04/11/19 08:29; Start 04/07/19 at 09:00 Metoprolol Tartrate (Lopressor) 50 mg BID PO Last administered on 04/06/19 20:03; Start 04/04/19 at 21:00; Stop 04/07/19 at 08:33; Status DC Mirtazapine (Remeron) 15 mg QHS PO Last administered on 04/11/19 20:41; Start 04/04/19 at 21:00 Pantoprazole Sodium (Protonix) 40 mg DAILY PO Last administered on 04/11/19 08:29; Start 04/05/19 at 09:00 Prednisone (Deltasone) 40 mg DAILY PO Last administered on 04/11/19 08:29; Start 04/08/19 at 09:00 Simvastatin (Zocor) 20 mg QHS PO Last administered on 04/11/19 20:41; Start 04/04/19 at 21:00 Sodium Chloride 1,000 ml @ 100 mls/hr Q10H IV Last administered on 04/04/19at 15:01; Start 04/04/19 at 13:57; Stop 04/04/19 at 23:56; Status DC Sodium Chloride (Saline Lock Flush) 2 ml ASDIRECTED PRN IV SEE LABEL COMMENTS; Start 04/09/19 at 16:00 Sodium Chloride (Saline Lock Flush) 2 ml SLF IV Last administered on 04/12/19at 05:52; Start 04/09/19 at 22:00 Spironolactone (Aldactone) 12.5 mg DAILY PO Last administered on 04/09/19at 05:49; Start 04/09/19 at 09:00; Stop 04/10/19 at 07:04; Status DC Spironolactone (Aldactone) 25 mg DAILY PO ; Start 04/05/19 at 09:00; Stop 04/05/19 at 09:00; Status DC Spironolactone (Aldactone) 25 mg DAILY PO Last administered on 04/11/19at 08:29; Start 04/10/19 at 09:00 Tiotropium [place] (Spiriva Handihaler) 1 inhalation DAILY@08 INH Last administered on 04/11/19at 07:46; Start 04/05/19 at 08:00 Warfarin Sodium (Coumadin) 5 mg DAILY@1700 PO Last administered on 04/10/19at 17:16; Start 04/04/19 at 17:00; Stop 04/11/19 at 07:10; Status DC Warfarin Sodium (Coumadin) 7.5 mg DAILY@1700 PO Last administered on 04/11/19at 17:11; Start 04/11/19 at 17:00 Objective Physical Examination General Exam: Positive: Alert, Cooperative, No Acute Distress Eye Exam: Positive: PERRLA, EOMI ENT Exam: Positive: Mucous membr. moist/pink Neck Exam: Positive: Supple Chest Exam: Positive: Clear to auscultation, Diminished (left base); Negative: Rales, Rhonchi, Wheezing Heart Exam: Positive: Rate Normal, Regular Rhythm Extremity Exam: Negative: Edema Skin Exam: Positive: Nl turgor and temperature Neuro Exam: Positive: Normal Speech, Normal Tone Psych Exam: Positive: Mental status NL, Mood NL, Oriented x 3 Assessment /Plan Assessment 1)acute/chronic respiratory failure with hypoxia and hypercapnia The acute respiratory failure has resolved. Now with chronic hypoxic respiratory failure. Uses baseline 3L supplemental O2 via nasal cannula. discussed with pulm and hold bipap tonight and perform nocturnal oximetry study to see if patient qualifies for bipap based on COPD. Will need outpatient EDWINA testing. 2) COPD exacerbation - resolved - continue prednisone taper, change IV anti-microbial therapy to oral due to no IV access - doxy day #9 - to complete 10 days - continue respiratory treatments - perforomist, pulmicort, spiriva, duoneb - SCx + moraxella 3) hyperkalemia medication induced - - resolved - resumed ARB and aldactone at lower dosage - continue to follow 4) chronic compsenated diastolic CHF - - compensated 5) HTN - still uncontrolled - limited by bradycardia and hyperkalemia - ARB and aldactone resumed - currently receiving lopressor from home meds at reduced dosage due to bradycardia - increase hydralazine to 50mg TID 6) bradycardia - decreased lopressor dosing - continue to monitor 7) Diabetes - family/patient was requesting regular diet continue insulin sliding scale 8) PAD/carotid artery disease 9) H/O DVT/PE - sub-therapeutic on coumadin - increase dosage - continue to monitor INR - patient's daughter states that she initially was on a NOAC, however she was not taking her medication properly, and was then switched to coumadin - history not entirely clear as daughter states 'her levels were high' and thus switched to coumadin - recent repeat CTA shows resolution of her previous pulmonary emboli - previously b/l LE DVT, b/l PE 10)anxiety/depression - continue celexa/remeron 11) Tobacco abuse - continue with nicotine replacement therapy Plan/VTE VTE Prophylaxis Ordered?: Yes VS, I&O, 24H, [facility] Vital Signs/I&O Vital Signs Date Time Temp Pulse Resp B/P (MAP) Pulse Ox O2 Delivery O2 Flow Rate FiO2 04/12/19 05:56 162/58 04/12/19 04:00 97.0 55 18 95 04/12/19 04:00 2.0 04/11/19 20:38 Nasal Cannula 04/09/19 04:00 30 I&O- Last 24 Hours up to 6 AM 04/12/19 06:00 Intake Total 980 ml Output Total 3500 ml Balance -2520 ml Laboratory Data 24H LABS Laboratory Tests 2 04/11/19 11:20: Bedside Glucose (Misc Panel) 167H 04/11/19 17:15: Bedside Glucose (Misc Panel) 383H 04/11/19 19:43: Bedside Glucose (Misc Panel) 334H 04/12/19 05:10: Nucleated Red Blood Cells % (auto) 0.0, Prothrombin Time 21.0H, Prothromb Time International Ratio 1.78, Anion Gap 7L, Glomerular Filtration Rate > 60.0, Blood Urea Nitrogen 28H, Creatinine 0.65, Sodium Level 138, Potassium Level 4.2, Chloride Level 100, Carbon Dioxide Level 31, Calcium Level 9.5 CBC/BMP Laboratory Tests 04/12/19 05:10 Red Blood Count 4.87, Mean Corpuscular Volume 92.8, Mean Corpuscular Hemoglobin 30.2, Mean Corpuscular Hemoglobin Concent 32.5, Red Cell Distribution Width 15.9 H, Calcium Level 9.5 Microbiology Microbiology 04/04/19 Blood Culture - Final, Complete NO GROWTH AFTER 5 DAYS 04/04/19 Blood Culture - Final, Complete NO GROWTH AFTER 5 DAYS 04/04/19 Gram Stain - Final, Complete 04/04/19 Sputum Culture - Final, Complete Moraxella Catarrhalis EMBER GUERRERO DO Apr 12, 2019 08:59
[2019-04-12] MEDS: FORMOTEROL FUMARATE 20 MCG/2 ML INHALATION SOLUTION (PERFOROMIST) INH SCH ×2 (11:08→19:48)
[2019-04-12] MEDS: TIOTROPIUM INHALER/CAPSULE (SPIRIVA) INH SCH (11:08)
[2019-04-12] MEDS: BUDESONIDE 0.5 MG/2 ML INHALATION SUSPENSION INH SCH ×2 (11:08→19:48)
[2019-04-12 12:00] VITALS: BP 160/70
[2019-04-12] MEDS: **hydrALAZINE** 50 MG TAB PO SCH ×2 (12:57→17:29)
[2019-04-12 12:59] LABS: ABG BASE EXCESS 4.5 (-2.0-2.0); ABG HCO3 29.4 MEQ/L (22.0-26.0); ABG PARTIAL PRESSURE CO2 44.4 mmHg (35.0-45.0); ABG PARTIAL PRESSURE O2 59.6 mmHg (75.0-100.0); ABG STANDARD HCO3 28.3 MEQ/L (22.0-26.0); ABG TOTAL CO2 30.8 MEQ/L (23.0-31.0); ABG pH (ARTERIAL) 7.439 UNITS (7.350-7.450)
[2019-04-12 16:07] VITALS: BP 130/56
[2019-04-12] MEDS: WARFARIN SOD 7.5 MG TAB PO SCH (17:31)
[2019-04-12 20:00] VITALS: BP 141/63
[2019-04-12] MEDS: MIRTAZAPINE 15 MG TAB PO SCH (20:21)
[2019-04-12] MEDS: SIMVASTATIN 20 MG TAB PO SCH (20:22)
[2019-04-12] MEDS: ACETAMINOPHEN TAB 650MG DOSE (2X325MG) PO PRN (22:54)
[2019-04-12 23:59] VITALS: BP 137/58
[2019-04-13] MEDS: SLF 3 ML SYR IV SCH ×3 (03:52→20:37)
[2019-04-13 04:00] VITALS: BP 158/54
[2019-04-13 05:05] LABS: HEMATOCRIT 46.3 % (36.0-47.0); HEMOGLOBIN 14.9 g/dl (12.0-15.5); MEAN CORPUSCULAR HEMOGLOBIN 29.9 pg (27.0-33.0); MEAN CORPUSCULAR HGB CONC 32.2 g/dl (32.0-36.5); MEAN CORPUSCULAR VOLUME 92.8 fl (80.0-96.0); PLATELET COUNT, AUTOMATED 259 10^3/uL (150-450); RED BLOOD COUNT 4.99 10^6/uL (4.00-5.40); WHITE BLOOD COUNT 13.7 10^3/uL (4.0-10.0)
[2019-04-13 05:15] LABS: INR 2.15; PROTHROMBIN TIME 24.4 SECONDS (12.1-14.4)
[2019-04-13] MEDS: **hydrALAZINE** 50 MG TAB PO SCH ×4 (05:24→18:00)
[2019-04-13 05:32] LABS: BLOOD UREA NITROGEN 35 MG/DL (7-18); CALCIUM LEVEL 9.2 MG/DL (8.8-10.2); CARBON DIOXIDE LEVEL 33 MEQ/L (21-32); CHLORIDE LEVEL 100 MEQ/L (98-107); CREATININE FOR GFR 0.82 MG/DL (0.55-1.30); GLOMERULAR FILTRATION RATE > 60.0 (>45); GLUCOSE, FASTING 181 MG/DL (70-100); POTASSIUM SERUM 4.4 MEQ/L (3.5-5.1); SODIUM LEVEL 137 MEQ/L (136-145)
[2019-04-13] MEDS: FORMOTEROL FUMARATE 20 MCG/2 ML INHALATION SOLUTION (PERFOROMIST) INH SCH ×2 (07:49→19:48)
[2019-04-13] MEDS: IPRATROPIUM 0.5MG/ALBUTEROL 2.5MG INH SOL UD 3ML (DUONEB)(J7620) NEB SCH ×4 (07:49→19:47)
[2019-04-13] MEDS: BUDESONIDE 0.5 MG/2 ML INHALATION SUSPENSION INH SCH ×2 (07:49→19:48)
[2019-04-13] MEDS: TIOTROPIUM INHALER/CAPSULE (SPIRIVA) INH SCH (07:49)
[2019-04-13 08:00] VITALS: BP 155/65
[2019-04-13] MEDS: METOPROLOL TART 25 MG TABLET PO SCH ×2 (08:55→20:37)
[2019-04-13] MEDS: HumaLOG INSULIN (NovoLOG) PER UNIT SC SCH ×4 (08:57→20:35)
[2019-04-13] MEDS: SPIRONOLACTONE 25 MG TAB PO SCH (08:58)
[2019-04-13] MEDS: amLODIPine 5 MG TAB PO SCH (08:58)
[2019-04-13] MEDS: CitaloPRAM (CeleXA) 20 MG TAB PO SCH (08:58)
[2019-04-13] MEDS: predniSONE 10 MG TAB PO SCH (08:58)
[2019-04-13] MEDS: LOSARTAN 50 MG TAB PO SCH ×2 (08:58→20:36)
[2019-04-13] MEDS: DOXYCYCLINE HYCLATE 100 MG TAB PO SCH ×2 (08:58→20:35)
[2019-04-13] MEDS: PANTOPRAZOLE 40MG TAB (PROTONIX) PO SCH (08:58)
[2019-04-13] MEDS: FUROSEMIDE 40 MG TAB PO SCH (08:59)
[2019-04-13] MEDS: WARFARIN SOD 7.5 MG TAB PO SCH (17:57)
[2019-04-13 18:01] VITALS: BP 138/60
[2019-04-13 19:48] VITALS: O2SAT 92
[2019-04-13 20:00] VITALS: BP 160/62
[2019-04-13] MEDS: SIMVASTATIN 20 MG TAB PO SCH (20:35)
[2019-04-13] MEDS: MIRTAZAPINE 15 MG TAB PO SCH (20:35)
[2019-04-13 23:59] VITALS: BP 136/63
[2019-04-14 04:00] VITALS: BP 129/60
[2019-04-14 05:18] LABS: HEMATOCRIT 44.8 % (36.0-47.0); HEMOGLOBIN 14.5 g/dl (12.0-15.5); MEAN CORPUSCULAR HEMOGLOBIN 29.5 pg (27.0-33.0); MEAN CORPUSCULAR HGB CONC 32.4 g/dl (32.0-36.5); MEAN CORPUSCULAR VOLUME 91.1 fl (80.0-96.0); PLATELET COUNT, AUTOMATED 238 10^3/uL (150-450); RED BLOOD COUNT 4.92 10^6/uL (4.00-5.40); WHITE BLOOD COUNT 12.6 10^3/uL (4.0-10.0)
[2019-04-14 05:38] LABS: INR 2.67
[2019-04-14 05:49] LABS: BLOOD UREA NITROGEN 35 MG/DL (7-18); CALCIUM LEVEL 9.7 MG/DL (8.8-10.2); CARBON DIOXIDE LEVEL 30 MEQ/L (21-32); CHLORIDE LEVEL 102 MEQ/L (98-107); CREATININE FOR GFR 0.75 MG/DL (0.55-1.30); GLOMERULAR FILTRATION RATE > 60.0 (>45); GLUCOSE, FASTING 190 MG/DL (70-100); POTASSIUM SERUM 4.2 MEQ/L (3.5-5.1); SODIUM LEVEL 138 MEQ/L (136-145)
[2019-04-14] MEDS: **hydrALAZINE** 50 MG TAB PO SCH ×3 (05:56→11:58)
[2019-04-14] MEDS: SLF 3 ML SYR IV SCH (05:57)
[2019-04-14 06:40] LABS: ABG BASE EXCESS 3.2 (-2.0-2.0); ABG HCO3 28.4 MEQ/L (22.0-26.0); ABG O2 SATURATION 94.4 % (95.0-99.0); ABG PARTIAL PRESSURE O2 73.6 mmHg (75.0-100.0); ABG STANDARD HCO3 27.2 MEQ/L (22.0-26.0); ABG TOTAL CO2 29.8 MEQ/L (23.0-31.0); ABG pH (ARTERIAL) 7.418 UNITS (7.350-7.450)
[2019-04-14] MEDS: BUDESONIDE 0.5 MG/2 ML INHALATION SUSPENSION INH SCH (07:30)
[2019-04-14] MEDS: FORMOTEROL FUMARATE 20 MCG/2 ML INHALATION SOLUTION (PERFOROMIST) INH SCH (07:30)
[2019-04-14] MEDS: TIOTROPIUM INHALER/CAPSULE (SPIRIVA) INH SCH (07:30)
[2019-04-14] MEDS: IPRATROPIUM 0.5MG/ALBUTEROL 2.5MG INH SOL UD 3ML (DUONEB)(J7620) NEB SCH ×2 (07:33→11:04)
[2019-04-14 07:40] VITALS: BP 126/59
[2019-04-14] MEDS: HumaLOG INSULIN (NovoLOG) PER UNIT SC SCH ×2 (07:45→12:42)
[2019-04-14 09:43] VITALS: BP 115/62
[2019-04-14] MEDS: predniSONE 10 MG TAB PO SCH (09:44)
[2019-04-14] MEDS: METOPROLOL TART 25 MG TABLET PO SCH (09:44)
[2019-04-14] MEDS: PANTOPRAZOLE 40MG TAB (PROTONIX) PO SCH (09:44)
[2019-04-14] MEDS: FUROSEMIDE 40 MG TAB PO SCH (09:45)
[2019-04-14] MEDS: CitaloPRAM (CeleXA) 20 MG TAB PO SCH (09:45)
[2019-04-14] MEDS: LOSARTAN 50 MG TAB PO SCH (09:45)
[2019-04-14] MEDS: DOXYCYCLINE HYCLATE 100 MG TAB PO SCH (09:45)
[2019-04-14] MEDS: SPIRONOLACTONE 25 MG TAB PO SCH (09:45)
[2019-04-14] MEDS: amLODIPine 5 MG TAB PO SCH (09:45)
--- NOTE | 2019-04-14 10:59 | IPNPDOC ---
Text Note Date of Service The patient was seen on 04/13/19. NOTE 64 yo female, active smoker with COPD/chronic hypoxic resp. failure on 3L O2 at home presents for several day hx of worsening SOB, fevers, cough, hypoxic at home. Found to be in acute hypoxic/hypercapnic respiratory failure, admitted to ICU and downgraded to PCU. Sputum with moraxella and sensitive to rocephin (treated 04/04-04/06) and doxycycline (04/07 to current). She continues to have elevated blood pressures. She is being monitoring for her DM with hypergl ycemia. She is requesting cake and chocolate. She was to have nocturnal oximetry 04/12-04/13 but not performed resulting in a delay in discharge. Patient and duaghter inquiring about renal US results. She is able to ambulate 20 feet without SOB (states back pain causes her to be more SOB than her lungs). O: Vitals as below General: pleasant, NAD, AAOx3 HRRR LCTA with decreased breath sound but no W/R/R Ext: trace edema A/P: 1)acute/chronic respiratory failure with hypoxia and hypercapnia The acute respiratory failure has resolved. Now with chronic hypoxic respiratory failure. Uses baseline 3L supplemental O2 via nasal cannula. nocturnal oximetry tonight to see if qualifies for HS Bipap at home due to COPD and chronic hypoxic respiratory failure. Will need outpatient EDWINA testing. 2) COPD exacerbation - resolved - continue prednisone taper, - doxy day #9 - to complete 10 days tomorrow - continue respiratory treatments - perforomist, pulmicort, spiriva, duoneb - SCx + moraxella 3) hyperkalemia medication induced - - resolved - resumed ARB and aldactone at lower dosage - continue to follow 4) chronic compsenated diastolic CHF - - compensated 5) HTN - still uncontrolled - limited by bradycardia and hyperkalemia - ARB and aldactone resumed - currently receiving lopressor from home meds at reduced dosage due to bradycardia - increase hydralazine to 50mg TID 6) bradycardia - decreased lopressor dosing - continue to monitor 7) Diabetes - family/patient was requesting regular diet continue insulin sliding scale 8) PAD/carotid artery disease 9) H/O DVT/PE - sub-therapeutic on coumadin - increase dosage - continue to monitor INR - patient's daughter states that she initially was on a NOAC, however she was not taking her medication properly, and was then switched to coumadin - history not entirely clear as daughter states 'her levels were high' and thus switched to coumadin - recent repeat CTA shows resolution of her previous pulmonary emboli - previously b/l LE DVT, b/l PE 10)anxiety/depression - continue celexa/remeron 11) Tobacco abuse - continue with nicotine replacement therapy Discharge tomorrow VSDestin, I+O VS, [place], I+O Laboratory Tests 04/13/19 04:49 Red Blood Count 4.99, Mean Corpuscular Volume 92.8, Mean Corpuscular Hemoglobin 29.9, Mean Corpuscular Hemoglobin Concent 32.2, Red Cell Distribution Width 16.1 H, Calcium Level 9.2 Vital Signs Date Time Temp Pulse Resp B/P (MAP) Pulse Ox O2 Delivery O2 Flow Rate FiO2 04/13/19 12:52 142/78 04/13/19 12:00 98.0 76 18 98 2.0 04/12/19 19:48 Nasal Cannula 04/09/19 04:00 30 I&O- Last 24 Hours up to 6 AM 04/13/19 06:00 Intake Total 600 ml Output Total 1650 ml Balance -1050 ml EMBER GUERRERO DO Apr 13, 2019 17:14
[2019-04-14 11:57] VITALS: BP 138/68
[2019-04-14 11:58] VITALS: BP 138/68
--- NOTE | 2019-04-14 12:37 | NOCOX ---
DATE OF PROCEDURE: 04/13/2019 Study was performed on 2 liters nasal cannula oxygen supplementation. Total valid sampling time for the study was 6 hours and 45 minutes. The highest oxygen saturation was 97%. The lowest oxygen saturation was 87%. Time spent with oxygen saturation less than 88% was 6 seconds. The patient's desaturation event index was 1.6. Graphically, there was no significant oxygen saturation variability overnight. There were some episodes of heart rate variability. IMPRESSION: Study was performed on 2 liters nasal cannula oxygen supplementation. There was no significant desaturations noted overnight. The patient had rare episodic mild desaturations. No significant oxygen saturation variability overnight. There were some episodes of heart rate variability. Cannot rule out obstructive sleep apnea. If clinically indicated, can consider formal evaluation for sleep testing. FERD
[2019-04-14] MEDS ORDERED: COZA50TA PO (13:47)
[2019-04-14] MEDS ORDERED: HYDR50TA PO (13:47)
[2019-04-14] MEDS ORDERED: FURO40TA2 PO (13:47)
[2019-04-14] MEDS ORDERED: PRED10TA2 PO (13:47)
[2019-04-14] MEDS ORDERED: METO1TAB87 PO (13:47)
--- NOTE | 2019-04-17 17:08 | DS.PDOC ---
Discharge Summary General Date of Admission April 04, 2019 at 16:42 Date of Discharge 04/14/19 Primary Care Physician: LORI GARCIA MD [facility] Attending Physician: EMBER GUERRERO DO Specialist/Consultants Involve: Elba Segura CRNA Specialist/Consultants Involve Dr Mares Discharge Summary PROCEDURES PERFORMED DURING STAY: none ADMITTING DIAGNOSES: 1. Acute on chronic respiratory failure with hypoxia and hypercapnia 2. COPD exacerbation, 3. Chronic diastolic CHF, compensated 4. DM T2 5. H/O DVT, on coumadin 6. Tobacco abuse, advise to quit; DISCHARGE DIAGNOSES: 1)acute/chronic respiratory failure with hypoxia and hypercapnia 2)chronic hypoxic respiratory failure. 3) COPD exacerbation 4) hyperkalemia due to medication 5) chronic compensated diastolic CHF 6) HTN essential 7) bradycardia - medication induced 8) Diabetes on intermediate insulin with hyperglycemia 9) PAD/carotid artery disease 10) H/O DVT/PE prior to admission - - sub-therapeutic on coumadin 11)anxiety/depression 12) Tobacco dependeny/abuse COMPLICATIONS/CHIEF COMPLAINT: Copd W/Exacerbation. HISTORY OF PRESENT ILLNESS: 64 yo female, active smoker with COPD/chronic hypoxic resp. failure on 3L O2 at home presents for several day hx of worsening SOB, fevers, cough, hypoxic at home. Found to be in acute hypoxic/hypercapnic respiratory failure. See H&P for details. HOSPITAL COURSE: patient admitted to ICU and placed on bipap. pulmonary consulted. Once respiratory status improved she was downgraded to PCU and continued on bipap at HS and 3 liter during day. Sputum with moraxella and sensitive to rocephin (treated 04/04-04/06) and doxycycline (04/07 to 04/14/19). she tolerated steroid taper during hospitalizaiton. She had poorly controlled BP until medications adjusted (decreased lopressor due to bradycardia, increased hydralazine to 50mg TID and restarted ARB/Aldactone). Prior to DC blood pressures were improed. As for her DM, she was covered with insulin and SSI but was not compliant with diet restrictions. Nephrology was consulted regarding her HTN and renal US ordered showing no signs of hydronephrosis or JACQUES . patient continued to improve. prior to discharge, she had nocturnal oximetry testing and ABG which did NOT qualify her for home HS bipap and it was recommended to patient to have outpatient sleep study done. she is being discharged in stable and improved condition and prior to discharge is able to ambulate 20 feet without SOB (states back pain causes her to be more SOB than her lungs). DISCHARGE MEDICATIONS: Please see below. ALLERGIES: Please see below. PHYSICAL EXAMINATION ON DISCHARGE: VITAL SIGNS: Please see below. General: pleasant, NAD, AAOx3 HRRR LCTA with decreased breath sound but no W/R/R Ext: trace edema LABORATORY DATA: Please see below. PROGNOSIS: FAIR ACTIVITY: as tolerated with wheeled walker; DO NOT SMOKE DIET: diabetic DISCHARGE PLAN: home with oxygen (3 liter exertion, 2 liter rest) DISCHARGE INSTRUCTIONS: 1. follow up with Dr Cordon in 2-4 weeks for recheck of lungs and EDWINA 2. Follow up with Dr Lori Garcia, PCP in 5-7 days to recheck blood presure ITEMS TO FOLLOWUP ON ON OUTPATIENT: 1. needs outpatient sleep study scheduled thru pulmonary office DISCHARGE CONDITION: Stable. TIME SPENT ON DISCHARGE: Greater than 40 minutes. Vital Signs/I&Os Vital Signs Date Time Temp Pulse Resp B/P (MAP) Pulse Ox O2 Delivery O2 Flow Rate FiO2 04/14/19 11:58 138/68 04/14/19 09:45 65 04/14/19 07:40 98.2 22 96 2.0 04/13/19 19:48 Nasal Cannula 04/09/19 04:00 30 I&O- Last 24 Hours up to 6 AM 04/14/19 06:00 Intake Total 1380 ml Output Total 2000 ml Balance -620 ml Laboratory Data Labs 24H Laboratory Tests 2 04/13/19 17:22: Bedside Glucose (Misc Panel) 294H 04/13/19 20:29: Bedside Glucose (Misc Panel) 318H 04/14/19 00:00: Blood Gas Bicarbonate Standard 27.2H, Arterial Blood pH 7.418, Arterial Blood Partial Pressure CO2 45.0, Arterial Blood Partial Pressure O2 73.6L, Arterial Blood Total CO2 29.8, Arterial Blood HCO3 28.4H, Arterial Blood Base Excess 3.2H, Arterial Blood Oxygen Saturation 94.4L 04/14/19 04:38: Nucleated Red Blood Cells % (auto) 0.0, Prothrombin Time 29.0H, Prothromb Time International Ratio 2.67, Anion Gap 6L, Glomerular Filtration Rate > 60.0, Blood Urea Nitrogen 35H, Creatinine 0.75, Sodium Level 138, Potassium Level 4.2, Chloride Level 102, Carbon Dioxide Level 30, Calcium Level 9.7 04/14/19 11:44: Bedside Glucose (Misc Panel) 179H CBC/BMP Laboratory Tests 04/14/19 04:38 Red Blood Count 4.92, Mean Corpuscular Volume 91.1, Mean Corpuscular Hemoglobin 29.5, Mean Corpuscular Hemoglobin Concent 32.4, Red Cell Distribution Width 16.1 H, Calcium Level 9.7 FSBS Laboratory Tests Test 04/13/19 17:22 04/13/19 20:29 04/14/19 11:44 Range/Units Bedside Glucose (Misc Panel) 294 318 179 80-115 MG/DL Microbiology Microbiology 04/04/19 Blood Culture - Final, Complete NO GROWTH AFTER 5 DAYS 04/04/19 Blood Culture - Final, Complete NO GROWTH AFTER 5 DAYS 04/04/19 Gram Stain - Final, Complete 04/04/19 Sputum Culture - Final, Complete Moraxella Catarrhalis Discharge Medications Scheduled Acetaminophen (Acetaminophen) 500 Mg Tab, 1,000 MG PO QHS, (Reported) Citalopram Hydrobromide (Citalopram HBr) 20 Mg Tab, 20 MG PO DAILY, (Reported) Dexlansoprazole (Dexilant) 60 Mg Cap, 60 MG PO DAILY, (Reported) Diphenhydramine HCl (Benadryl) 25 Mg Cap, 50 MG PO QHS, (Reported) Fluticasone/Vilanterol (Breo Ellipta 100-25 Mcg INH) 1 Inh Inh, 1 PUFF INH DAILY, (Reported) Furosemide (Furosemide) 40 Mg Tablet, 40 MG PO DAILY Glipizide (Glipizide) 10 Mg Tab, 10 MG PO BID, (Reported) Hydralazine HCl (Hydralazine HCl) 50 Mg Tablet, 50 MG PO Q6H Losartan Potassium (Cozaar) 50 Mg Tab, 50 MG PO BID Metformin HCl (Metformin HCl) 500 Mg Tab, 500 MG PO BID, (Reported) Metoprolol Tartrate (Metoprolol Tartrate) 25 Mg Tablet, 25 MG PO BID Mirtazapine (Remeron) 30 Mg Tablet, 15 MG PO QHS, (Reported) Multivitamin (Tab-A-Nancy) 1 Tab Tab, 1 TAB PO DAILY, (Reported) Prednisone (Prednisone) 10 Mg Tablet, 30 MG PO DAILY [id number] and stop Simvastatin (Simvastatin) 20 Mg Tab, 20 MG PO QHS, (Reported) Spironolactone (Spironolactone) 25 Mg Tablet, 25 MG PO DAILY, (Reported) Warfarin Sodium (Warfarin Sodium) 5 Mg Tablet, 5 MG PO QPM, (Reported) @ 1700 Scheduled PRN Ipratropium/Albuterol Sulfate (Iprat-Albut 0.5-3(2.5) mg/3 ml) 1 Yoni Yoni, 1 YONI INH Q4H PRN for SHORTNESS OF BREATH, (Reported) Nitroglycerin (Nitrostat) 0.4 Mg Subl, 0.4 MG SL NITRO PRN for CHEST PAIN, (Reported) Allergies Coded Allergies: latex (Verified Allergy, Unknown, 04/04/19) bupropion (Verified Adverse Reaction, Severe, violent, 04/04/19) erythromycin base (Verified Adverse Reaction, Intermediate, vomiting, ) EMBER GUERRERO DO Apr 14, 2019 13:51
== END 2019-04-14 15:13 | disposition home or self-care (01) | DRG 189 ==
LOC: EDBD 13:51 → EDUNIT# 13:51 → M ED 13:51 → M ED INP 16:42 → M ICU 18:47 → M PCU 04-09 15:45
PROVIDERS: ADMIT Hospitalist; ATTEND Family Medicine
PROC: 5A09457 Assistance with Respiratory Ventilation, 24-96 Consecutive Hours, Continuous Positive Airway Pressure (ICD-10-PCS; principal; 2019-04-04)
DX: J96.21 Acute and chronic respiratory failure with hypoxia (principal); I50.32 Chronic diastolic (congestive) heart failure; J44.1 Chronic obstructive pulmonary disease with (acute) exacerbation; E87.2 Acidosis; J96.22 Acute and chronic respiratory failure with hypercapnia; F17.200 Nicotine dependence, unspecified, uncomplicated; I11.0 Hypertensive heart disease with heart failure; E78.5 Hyperlipidemia, unspecified; E87.5 Hyperkalemia; E11.65 Type 2 diabetes mellitus with hyperglycemia; Z86.718 Personal history of other venous thrombosis and embolism; Z99.81 Dependence on supplemental oxygen; Z79.01 Long term (current) use of anticoagulants; Z98.49 Cataract extraction status, unspecified eye; Z88.1 Allergy status to other antibiotic agents; Z91.040 Latex allergy status; Z79.84 Long term (current) use of oral hypoglycemic drugs; Z79.899 Other long term (current) drug therapy; Z88.8 Allergy status to other drugs, medicaments and biological substances; F32.9 Major depressive disorder, single episode, unspecified; F41.9 Anxiety disorder, unspecified; R00.1 Bradycardia, unspecified; E11.51 Type 2 diabetes mellitus with diabetic peripheral angiopathy without gangrene; T44.7X5A Adverse effect of beta-adrenoreceptor antagonists, initial encounter

== ENCOUNTER → 2019-04-22 | Outpatient (CLI) | payer MEDICARE, MEDICAID ==
[~2019-04-22] MED LIST changes: +HYDR50TA PO; +REME30TA PO
--- NOTE | 2019-04-22 13:41 | REP ---
DUPLEX CAROTID SONOGRAPHY: HISTORY: Occlusion and stenosis bilateral carotid arteries. FINDINGS: Antegrade flow was observed in both vertebral arteries. RIGHT CAROTID: The right common carotid artery shows mild mixed plaquing. There is moderate mixed plaquing in the bulb and proximal ICA on the right side on two-dimensional scanning. Color flow and spectral Doppler interrogation are unremarkable. Right Carotid Velocity Chart: PSV EDV Right CCA 73 cm/s Right ICA 114 cm/s EDV 32 cm/s Right ECA 127cm/s Right ICA/CCA ratio normal 1.56 IMPRESSION: 16-49% category narrowing in the right ICA by Doppler velocity criteria. LEFT CAROTID: The left common carotid artery shows mild soft plaquing. There is moderate mixed plaquing in the bulb and proximal ICA on two-dimensional scanning on the left side. Color flow and spectral Doppler interrogation shows very slightly elevated systolic velocity in the ICA. Velocity Chart Left Carotid: PSV EDV Left CCA 93 cm/s Left ICA 153 cm/s 36 cm/s Left ECA 163 cm/s Left ICA/CCA ratio 1.63. IMPRESSION: 16-49% category narrowing in the left ICA by Doppler velocity criteria, probably near the upper end of this range. Electronically Signed by Marcio Robles MD 04/22/2019 03:11 P
== END ==
LOC: M RAD 10:52
PROVIDERS: ATTEND Surgery Vascular Surgery
DX: I65.23 Occlusion and stenosis of bilateral carotid arteries (principal)

== ENCOUNTER → 2019-05-24 | Outpatient (CLI) | payer MEDICARE, MEDICAID ==
--- NOTE | 2019-05-24 15:49 | REP ---
Low-dose lung screening chest CT: The study is performed without IV contrast. Images are presented at lung windowing only. Comparisons are 01/11/2018 and 08/24/2017. There are no lung masses or nodules. There is focal discoid atelectasis in the right upper lobe as an interval change. There are no other infiltrates. There are no pleural effusions. Impression: Category one low-dose lung screening CT. The probability of malignancy is less than 1%. There is factors consider follow-up annual low-dose lung screening CT. Electronically Signed by Oh Blunt MD 05/24/2019 03:40 P
== END ==
LOC: M RAD 14:17
PROVIDERS: ATTEND Physician Assistant
DX: Z12.2 Encounter for screening for malignant neoplasm of respiratory organs (principal); F17.210 Nicotine dependence, cigarettes, uncomplicated

== ENCOUNTER → 2019-06-14 | Outpatient (CLI) | payer MEDICARE, MEDICAID ==
[~2019-06-14] MED LIST changes: +E-Z-GAS II EFFERVESCENT PACKET (SODIUM BICARB./CITRIC ACID/SIMETHICONE) As Ordered ONE; +E-Z-HD 98% w/w 340GM SUSP BTL As Ordered ONE; +E-Z-PAQUE 96% w/w SUSP 176GM BTL As Ordered ONE
--- NOTE | 2019-06-14 20:12 | REP ---
Upper GI Air Contrast with SBFT The procedure was performed by FOX Angela, under the the direct supervision of Dr. Teresa. The images were reviewed with Dr. Teresa. The wolf hunter film shows no organomegaly or pathological masses. The intestinal gas pattern appears normal. Liquid barium and gas producing crystals were given in the erect position as well as liquid barium in the supine oblique position in order to perform a double contrast upper GI examination. This exam is extremely limited nature due to the patient's limited motility. The oral and pharyngeal stages of deglutition demonstrates penetration without aspiration. Esophageal transport is efficient and there is no esophagitis, stricture, or mucosal ring noted. There is no hiatal hernia. Gastroesophageal reflux was not observed throughout the course of the exam. The stomach lovell are normally outlined. There is no obstruction. The duodenal lovell are normally outlined. There is a duodenal diverticulum. The visualized portion of the proximal small bowel appears normal in course and caliber. The barium column was followed through the small bowel to the level of the terminal ileum. Small bowel transit time was approximately 80 minutes. During fluoroscopy gentle palpation shows all loops are freely mobile and pliable. There are no fixed or angulated loops. The small bowel mucosal pattern is normal in course and caliber. There is no transition to set suggest a partial small-bowel obstruction. Spot filming of the terminal ileum shows it to be unremarkable. Impression: 1. Duodenal diverticulum. 2. No other definite abnormalities. 0.3 minutes of fluoroscopy time was utilized for this procedure. Some fluoroscopic images are performed with last image hold technology. These images require no additional radiation. Reviewed by FOX Calderon 06/14/2019 03:51 P Electronically Signed by Oh Teresa MD 06/14/2019 08:04 P
== END ==
LOC: M RAD 07:38
PROVIDERS: ATTEND Internal Medicine Gastroenterology
DX: D50.9 Iron deficiency anemia, unspecified (principal)

== ENCOUNTER 2019-06-21 14:09 | Emergency (ER) | payer MEDICARE, MEDICAID ==
[~2019-06-21] VITALS: Ht 152.4 cm; Wt 90.3 kg
[~2019-06-21 14:09] MED LIST changes: -E-Z-GAS II EFFERVESCENT PACKET (SODIUM BICARB./CITRIC ACID/SIMETHICONE) As Ordered ONE; -E-Z-HD 98% w/w 340GM SUSP BTL As Ordered ONE; -E-Z-PAQUE 96% w/w SUSP 176GM BTL As Ordered ONE
[2019-06-21] MEDS ORDERED: methylPREDNISolone INJ 125 MG/2 ML VIAL (J2930) IV ONE (14:45)
[2019-06-21 14:55] LABS: BASO % 0.4 % (0.0-1.0); EOS # 0.1 10^3/uL (0.0-0.50); EOS % 1.8 % (0.0-3.0); HEMATOCRIT 43.1 % (36.0-47.0); HEMOGLOBIN 13.1 g/dl (12.0-15.5); LYMPH # 1.8 10^3/uL (1.5-4.5); LYMPH % 24.8 % (24.0-44.0); MEAN CORPUSCULAR HEMOGLOBIN 30.7 pg (27.0-33.0); MEAN CORPUSCULAR HGB CONC 30.4 g/dl (32.0-36.5); MEAN CORPUSCULAR VOLUME 100.9 fl (80.0-96.0); MONO # 0.5 10^3/uL (0.0-0.8); MONO % 7.5 % (0.0-5.0); NEUTROPHILS # 4.6 10^3/uL (1.8-7.7); NEUTROPHILS % 65.2 % (36.0-66.0); PLATELET COUNT, AUTOMATED 330 10^3/uL (150-450); RED BLOOD COUNT 4.27 10^6/uL (4.00-5.40); WHITE BLOOD COUNT 7.1 10^3/uL (4.0-10.0)
[2019-06-21 15:06] LABS: BLOOD UREA NITROGEN 15 MG/DL (7-18); CALCIUM LEVEL 9.9 MG/DL (8.8-10.2); CARBON DIOXIDE LEVEL 38 MEQ/L (21-32); CHLORIDE LEVEL 99 MEQ/L (98-107); CK-MB VALUE MASS 1.5 NG/ML (<3.6); CPK CREATINE PHOSPHOKINASE 41 U/L (26-192); CREATININE FOR GFR 0.72 MG/DL (0.55-1.30); GLOMERULAR FILTRATION RATE > 60.0 (>45); GLUCOSE, FASTING 101 MG/DL (70-100); MB/CK RELATIVE INDEX 3.66 (< OR =4); NT-PRO BNP 1803 PG/ML (<125); POTASSIUM SERUM 4.7 MEQ/L (3.5-5.1); SODIUM LEVEL 140 MEQ/L (136-145); TROPONIN I < 0.02 NG/ML (< 0.10)
[2019-06-21 15:07] LABS: ABG BASE EXCESS 9.8 (-2.0-2.0); ABG HCO3 37.4 MEQ/L (22.0-26.0); ABG O2 SATURATION 88.1 % (95.0-99.0); ABG PARTIAL PRESSURE CO2 64.5 mmHg (35.0-45.0); ABG PARTIAL PRESSURE O2 52.9 mmHg (75.0-100.0); ABG STANDARD HCO3 33.4 MEQ/L (22.0-26.0); ABG TOTAL CO2 39.4 MEQ/L (23.0-31.0); ABG pH (ARTERIAL) 7.381 UNITS (7.350-7.450)
[2019-06-21 15:08] LABS: INR 1.59; PROTHROMBIN TIME 18.7 SECONDS (11.8-14.0)
[2019-06-21] MEDS: IPRATROPIUM 0.5MG/ALBUTEROL 2.5MG INH SOL UD 3ML (DUONEB)(J7620) NEB PRN ×2 (15:08→15:10)
[2019-06-21 16:46] VITALS: O2SAT 88
[2019-06-21 17:30] VITALS: BP 165/72
--- NOTE | 2019-06-22 07:17 | ECGEPIP ---
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
--- NOTE | 2019-06-22 08:09 | REP ---
REASON FOR EXAM: Dyspnea and cough. COMPARISON EXAMINATION: 04/05/2019. The technique utilized in obtaining the radiograph has magnified the cardiac silhouette and accentuated the interstitial markings. There is global cardiomegaly accentuated by technique. There is a diffuse increase in the interstitial markings accentuated by technique. The appearance of this is essentially unchanged from the prior exam. No acute patchy parenchymal opacities or pleural effusions have developed. There is no change in the osseous structures. IMPRESSION: No significant change from the prior exam. Chronic changes. Mild superimposed interstitial edema cannot be ruled out. Electronically Signed by Deuce Case DO 06/22/2019 09:36 A
== END 2019-06-21 17:52 | disposition home or self-care (01) ==
LOC: M ED 14:09
DX: J44.1 Chronic obstructive pulmonary disease with (acute) exacerbation (principal); J96.91 Respiratory failure, unspecified with hypoxia; I45.19 Other right bundle-branch block; E11.9 Type 2 diabetes mellitus without complications; I11.0 Hypertensive heart disease with heart failure; I50.9 Heart failure, unspecified; Z86.718 Personal history of other venous thrombosis and embolism; Z79.899 Other long term (current) drug therapy; Z79.84 Long term (current) use of oral hypoglycemic drugs; Z79.01 Long term (current) use of anticoagulants; Z88.1 Allergy status to other antibiotic agents; Z88.8 Allergy status to other drugs, medicaments and biological substances; Z91.040 Latex allergy status
CPT/HCPCS: 36600; 71045; 80048; 82550; 82553; 82803; 83605; 83880; 84484; 85025; 85610; 87040; 93005; 93041; 94640; 96374; 99285; J2930

== ENCOUNTER → 2019-07-25 | Outpatient (CLI) | payer MEDICARE, MEDICAID ==
[~2019-07-25] MED LIST changes: -AZIT500T2 PO; +AZIT500T5 PO; +HYDR-3911 PO; +KEPP1TAB PO; +LIQUID POLIBAR PLUS 105% w/v 1900ML BTL As Ordered ONE; +LOSA50TA88 PO; +LOVE0.6I2 SC; +MAGN64TASA PO; +METO50TA7 PO; +SIMV10TA21 PO; -SIMV20TA2 PO; +SIMV20TA22 PO; +VALA500T5 PO; +WARF-21 PO
--- NOTE | 2019-07-25 10:20 | REP ---
KUB ABDOMEN AND PELVIS: Single KUB film of the abdomen and pelvis demonstrates normal bowel gas pattern. There is no evidence of bowel obstruction. There are scattered vascular calcifications in the pelvis. There are degenerative changes of the spine. IMPRESSION: Unremarkable bowel gas pattern. Electronically Signed by Oh Teresa MD 07/25/2019 04:09 P
== END ==
LOC: M RAD 08:06
PROVIDERS: ATTEND Internal Medicine Gastroenterology
DX: D64.9 Anemia, unspecified (principal)

== ENCOUNTER 2019-09-01 09:48 | Inpatient (IN) | payer MEDICARE, MEDICAID ==
[~2019-09-01] VITALS: Ht 152.4 cm; Wt 92.1 kg
[~2019-09-01 09:48] MED LIST changes: -HYDR-3911 PO; -KEPP1TAB PO; -LIQUID POLIBAR PLUS 105% w/v 1900ML BTL As Ordered ONE; -LOSA50TA88 PO; -LOVE0.6I2 SC; -MAGN64TASA PO; -METO50TA7 PO; -SIMV10TA21 PO; +SIMV20TA2 PO; -SIMV20TA22 PO; -VALA500T5 PO; -WARF-21 PO
[2019-09-01] MEDS ORDERED: ALBUTEROL SULFATE 2.5 MG/0.5 ML INH NEB SOLN INH ONE (10:30)
[2019-09-01] MEDS ORDERED: IPRATROPIUM 0.5MG/ALBUTEROL 2.5MG INH SOL UD 3ML (DUONEB)(J7620) NEB ONE (10:30)
[2019-09-01 10:55] LABS: BASO % 0.6 % (0.0-1.0); EOS # 0.1 10^3/uL (0.0-0.5); EOS % 1.1 % (0.0-3.0); HEMATOCRIT 38.9 % (36.0-47.0); HEMOGLOBIN 11.4 g/dl (12.0-15.5); LYMPH # 1.1 10^3/uL (1.5-5.0); LYMPH % 14.7 % (24.0-44.0); MEAN CORPUSCULAR HEMOGLOBIN 28.6 pg (27.0-33.0); MEAN CORPUSCULAR HGB CONC 29.3 g/dl (32.0-36.5); MEAN CORPUSCULAR VOLUME 97.7 fl (80.0-96.0); MONO # 0.6 10^3/uL (0.0-0.8); MONO % 8.3 % (0.0-5.0); NEUTROPHILS # 5.4 10^3/uL (1.5-8.5); PLATELET COUNT, AUTOMATED 319 10^3/uL (150-450); RED BLOOD COUNT 3.98 10^6/uL (4.00-5.40); WHITE BLOOD COUNT 7.2 10^3/uL (4.0-10.0)
[2019-09-01 11:01] LABS: ABG HCO3 36.6 MEQ/L (22.0-26.0); ABG O2 SATURATION 95.6 % (95.0-99.0); ABG STANDARD HCO3 32.8 MEQ/L (22.0-26.0); ABG TOTAL CO2 38.7 MEQ/L (23.0-31.0); ABG pH (ARTERIAL) 7.361 UNITS (7.350-7.450)
[2019-09-01 11:05] LABS: ABG PARTIAL PRESSURE CO2 66.2 mmHg (35.0-45.0)
[2019-09-01 11:06] LABS: INR 2.15; PROTHROMBIN TIME 23.8 SECONDS (11.8-14.0)
[2019-09-01 11:07] LABS: PARTIAL THROMBOPLASTIN TIME 36.4 SECONDS (25.0-38.4)
--- NOTE | 2019-09-01 11:31 | REP ---
Single view chest: 09/01/2019. Indication: Dyspnea. Comparison: 06/21/2019. Findings: Cardiomegaly and increased interstitial markings are redemonstrated and stable. There is no new air space consolidation. There is no evidence of pleural effusion or pneumothorax. Impression: No acute cardiopulmonary process. No change compared to 06/21/2019. Electronically Signed by Ronald Long DO 09/01/2019 11:22 A
[2019-09-01 11:33] LABS: ALBUMIN 3.3 GM/DL (3.2-5.2); ALT/SGPT 18 U/L (12-78); BILIRUBIN,DIRECT 0.2 MG/DL (0.0-0.2); BILIRUBIN,TOTAL 0.5 MG/DL (0.2-1.0); BLOOD UREA NITROGEN 12 MG/DL (7-18); CARBON DIOXIDE LEVEL 41 MEQ/L (21-32); CHLORIDE LEVEL 98 MEQ/L (98-107); CK-MB VALUE MASS < 1.0 NG/ML (<3.6); CPK CREATINE PHOSPHOKINASE 40 U/L (26-192); CREATININE FOR GFR 0.67 MG/DL (0.55-1.30); GLOMERULAR FILTRATION RATE > 60.0 (>45); GLUCOSE, FASTING 149 MG/DL (70-100); NT-PRO BNP 3464 PG/ML (<125); POTASSIUM SERUM 4.3 MEQ/L (3.5-5.1); SODIUM LEVEL 141 MEQ/L (136-145); TOTAL PROTEIN 7.8 GM/DL (6.4-8.2); TROPONIN I < 0.02 NG/ML (< 0.10)
[2019-09-01] MEDS ORDERED: WARF-21 PO (12:25)
[2019-09-01] MEDS ORDERED: HYDR-3911 PO (12:25)
[2019-09-01] MEDS ORDERED: LOSA50TA88 PO (12:25)
[2019-09-01] MEDS ORDERED: METO25TA4 PO (12:25)
[2019-09-01] MEDS ORDERED: FURO40TA2 PO (12:25)
[2019-09-01] MEDS ORDERED: dexameTHASONE 20 MG/5 ML VIAL (J1100) IV ONE (13:00)
[2019-09-01] MEDS: IPRATROPIUM 0.5MG/ALBUTEROL 2.5MG INH SOL UD 3ML (DUONEB)(J7620) NEB SCH ×2 (13:35→20:01)
[2019-09-01] MEDS ORDERED: DEXTROSE 50% 50 ML SYRINGE IV PRN (13:45)
[2019-09-01] MEDS ORDERED: NITROGLYCERIN 0.4 MG SUBL TABLET SL PRN (13:45)
[2019-09-01] MEDS ORDERED: GLUCOSE 4 GM CHEW TABLET PO PRN (13:45)
[2019-09-01] MEDS ORDERED: GLUCAGON FOR INJ 1 MG VIAL (J1610) SC PRN (13:45)
[2019-09-01 14:19] LABS: INR 2.12; PROTHROMBIN TIME 23.5 SECONDS (11.8-14.0)
--- NOTE | 2019-09-01 14:31 | ECGEPIP ---
[facility] - ED Test Date: 2019-09-01 Pat Name: CANDIDO BAEZ Department: Room: - Gender: Female Clinical Application Specialist: Josse TAYLOR : 1955 Requested By: DEON Redding Order Number: [id number] Reading MD: Beverley Ortega Measurements Intervals [place] Rate: 64 P: 66 ID: 161 QRS: 91 QRSD: 118 T: 38 QT: 422 QTc: 438 Interpretive Statements SINUS RHYTHM BORDERLINE RIGHT AXIS DEVIATION INCOMPLETE RIGHT BUNDLE BRANCH BLOCK POSSIBLE ANTERIOR MYOCARDIAL INFARCTION, OF INDETERMINATE AGE SIMILAR 06/21/19 Electronically Signed on 09-01-2019 14:30:50 EDT by Beverley Ortega
[2019-09-01 14:35] LABS: MAGNESIUM LEVEL 1.2 MG/DL (1.8-2.4); PHOSPHORUS LEVEL 4.1 MG/DL (2.5-4.9)
--- NOTE | 2019-09-01 14:51 | HPEPDOC ---
General Date of Admission Sep 01, 2019 at 12:42 Date of Service: Sep 01, 2019 Primary Care Physician: LORI GARCIA MD [facility] Chief Complaint The patient is a 64-year-old female admitted with a reason for visit of Acute Respiratory Failure W Hypoxia And Hypercapni. Source: Patient Exam Limitations: No limitations Timing/Duration: Day(s) Severity: Moderate Associated Symptoms: Loss of appetite, Malaise, Shortness of breath History of Present Illness Patient is 64 years old female with past medical history of ongoing smoker, COPD, diastolic CHF, presents with worsening shortness of breath. She had several admissions for the same issue. she is still smoking about 1 PPD, she is on home O2 at 3L [place]. She states in the last 3 days, she became more shortness of breath. Shortness of breath was associated with loss of appetite and weakness. Patient denies fever, chills, increased cough. In emergency room patient was found to have oxygenation around 80s, oxygen was increased to 4 L, oxygenation improved to 92%. White blood count 7.4, hemoglobin 11.4, BNP 3464. Chest x-ray did not show acute cardiopulmonary process. She denies PALMER, blurred vision, abdominal pain, and n/v/D Home Medications Scheduled Acetaminophen (Acetaminophen) 500 Mg Tab, 1,000 MG PO QHS, (Reported) Citalopram Hydrobromide (Citalopram HBr) 20 Mg Tab, 20 MG PO DAILY, (Reported) Dexlansoprazole (Dexilant) 60 Mg Cap, 60 MG PO DAILY, (Reported) Diphenhydramine HCl (Benadryl) 25 Mg Cap, 50 MG PO QHS, (Reported) Fluticasone/Vilanterol (Breo Ellipta 100-25 Mcg INH) 1 Inh Inh, 1 PUFF INH DAILY, (Reported) Furosemide (Furosemide) 40 Mg Tablet, 40 MG PO DAILY, (Reported) Glipizide (Glipizide) 10 Mg Tab, 10 MG PO DAILY, (Reported) Hydralazine HCl (Hydralazine HCl) 50 Mg Tablet, 50 MG PO TID, (Reported) Losartan Potassium (Losartan Potassium) 50 Mg Tablet, 50 MG PO BID, (Reported) Metformin HCl (Metformin HCl) 500 Mg Tab, 500 MG PO BID, (Reported) Metoprolol Tartrate (Metoprolol Tartrate) 25 Mg Tablet, 25 MG PO BID, (Reported) Mirtazapine (Remeron) 30 Mg Tablet, 15 MG PO QHS, (Reported) Multivitamin (Tab-A-Nancy) 1 Tab Tab, 1 TAB PO DAILY, (Reported) Simvastatin (Simvastatin) 20 Mg Tab, 20 MG PO QHS, (Reported) Spironolactone (Spironolactone) 25 Mg Tablet, 25 MG PO DAILY, (Reported) Warfarin Sodium (Warfarin Sodium) 5 Mg Tablet, 5 MG PO 5XW, (Reported) THU/THU/THU/SAT/SUN AT 1700 Warfarin Sodium (Warfarin Sodium) 7.5 Mg Tablet, 7.5 MG PO 2XW, (Reported) THU/ AT 1700 Scheduled PRN Ipratropium/Albuterol Sulfate (Iprat-Albut 0.5-3(2.5) mg/3 ml) 1 Yoni Yoni, 1 YONI INH Q4H PRN for SHORTNESS OF BREATH, (Reported) Nitroglycerin (Nitrostat) 0.4 Mg Subl, 0.4 MG SL NITRO PRN for CHEST PAIN, (Reported) Allergies Coded Allergies: latex (Verified Allergy, Unknown, 04/04/19) bupropion (Verified Adverse Reaction, Severe, violent, 04/04/19) erythromycin base (Verified Adverse Reaction, Intermediate, vomiting, 04/04/19) Past Medical History Medical History 1. Significant for nicotine dependence. 2. Type 2 diabetes. 3. Partial hysterectomy. 4. Congestive heart failure. 5. Hypercholesterolemia. 6. Hypertension. 7. History of thrombophlebitis and deep venous thrombosis (DVT). 8. Reported obstructive sleep apnea. 9. Chronic obstructive pulmonary disease with chronic hypoxic respiratory failure, home oxygen at 2-3 liters. 10. History of gastroesophageal reflux. 11. History of thyroid nodule without history of hypothyroidism. 12. History of anemia, unclear etiology. 13. History of venous stasis ulcers. 14. Chronic low back pain. 15. Depression. 16. Seasonal allergies. Surgical History Cataracts Skin graft Partial hysterectomy Family History Father: had history of DM Mother from cancer Social History * Smoker: current smoker Alcohol: Denies Drugs: denies A-FIB/CHADSVASC A-FIB History Current/History of A-Fib/PAF?: No Current PO Anticoag Therapy: No Review of Systems Constitutional: Reports: Malaise, Weakness, Fatigue Eyes: Denies: Pain, Vision change ENT: Denies: Head Aches, Ear Pain, Dysphagia Skin: Denies: Rash, Lesions Pulmonary: Reports: Dyspnea Cardiovascular: Denies: Chest Pain, Palpitations Gastrointestinal: Denies: Nausea, Vomiting Genitourinary: Denies: Dysuria, Frequency Hematologic: Denies: Bruising, Bleeding Excessively Endocrine: Denies: Polydipsia, Polyphagia Musculoskeletal: Denies: Neck Pain Neurological: Denies: Weakness, Numbness Psych: Denies: Mood Normal, Anxiety Physical Examination General Exam: Positive: Alert, Cooperative Eye Exam: Positive: PERRLA, Conjunctiva & lids normal ENT Exam: Positive: Atraumatic Neck Exam: Positive: Supple, JVD Chest Exam: Positive: Rales Heart Exam: Positive: Rate Normal Telemetry: Positive: No significant arrhythmia Abdomen Exam: Positive: Normal bowel sounds Extremity Exam: Negative: Clubbing, Cyanosis Skin Exam: Positive: Nl turgor and temperature Neuro Exam: Positive: Normal Gait, Strength at 5/5 X4 ext Psych Exam: Positive: Mental status NL Vital Signs Vital Signs Date Time Temp Pulse Resp B/P (MAP) Pulse Ox O2 Delivery O2 Flow Rate FiO2 09/01/19 10:18 Room Air 09/01/19 10:11 09/01/19 09:49 97.1 67 18 92 4.0 Laboratory Data Labs 24H Laboratory Tests 2 09/01/19 10:38: Immature Granulocyte % (Auto) 0.3, Neutrophils (%) (Auto) 75.0H, Lymphocytes (%) (Auto) 14.7L, Monocytes (%) (Auto) 8.3H, Eosinophils (%) (Auto) 1.1, Basophils (%) (Auto) 0.6, Neutrophils # (Auto) 5.4, Lymphocytes # (Auto) 1.1L, Monocytes # (Auto) 0.6, Eosinophils # (Auto) 0.1, Basophils # (Auto) 0.0, Nucleated Red Blood Cells % (auto) 0.0, Prothrombin Time 23.8H, Prothromb Time International Ratio 2.15, Activated Partial Thromboplast Time 36.4, Anion Gap 2L, Glomerular Filtration Rate > 60.0, Calcium Level 9.0, Total Bilirubin 0.5, Direct Bilirubin 0.2, Aspartate Amino Transf (AST/SGOT) 22, Alanine Aminotransferase (ALT/SGPT) 18, Alkaline Phosphatase 86, Total Creatine Kinase 40, Creatine Kinase MB < 1.0, Creatine Kinase MB Relative Index 2.50, Troponin I < 0.02, IK-Dod-Q-Type Natriuretic Peptide 3464H, Total Protein 7.8, Albumin 3.3, Albumin/Globulin Rat io 0.73L, Thyroid Stimulating Hormone (TSH) 2.000 09/01/19 10:43: Blood Gas Bicarbonate Standard 32.8H, Arterial Blood pH 7.361, Arterial Blood Partial Pressure CO2 66.2*H, Arterial Blood Partial Pressure O2 83.0, Arterial Blood Total CO2 38.7H, Arterial Blood HCO3 36.6H, Arterial Blood Base Excess 9.0H, Arterial Blood Oxygen Saturation 95.6 09/01/19 13:53: Prothrombin Time 23.5H, Prothromb Time International Ratio 2.12, Phosphorus Level 4.1, Magnesium Level 1.2L CBC/BMP Laboratory Tests 09/01/19 10:38 Microbiology Microbiology 09/01/19 Blood Culture, Received Pending 09/01/19 Respiratory Virus Panel (PCR) (JOSE A) - Final, Complete 09/01/19 Blood Culture, Received Pending Assessment/Plan Patient is 64 years old female with past medical history of ongoing smoker, COPD, diastolic CHF, presents with worsening shortness of breath. She had [facility] admissions for the same issue. she is still smoking about 1 PPD, she is on home O2 at 3L [place]. She states in the last 3 days, she became more shortness of breath. Shortness of breath was associated with loss of appetite and weakness. Patient denies fever, chills, increased cough. In emergency room patient was found to have oxygenation around 80s, oxygen was increased to 4 L, oxygenation improved to 92%. White blood count 7.4, hemoglobin 11.4, BNP 3464. Problems (1) Acute respiratory failure with hypoxia and hypercapnia Status: Resolved Problem Text: Most likely secondary to CHF exacerbation Continue treatment with Lasix IV I's and O's Cardiac/diabetes diet (2) Diastolic CHF Status: Chronic Problem Text: BNP significantly elevated, patient was not compliant to her diet Lasix 40 mg IV twice a day I's and O's, limit fluid intake to 1500 (3) Diabetes Status: Chronic Problem Text: Insulin sliding scale (4) COPD (chronic obstructive pulmonary disease) Status: Chronic Problem Text: Patient stated that she has not had increased cough or sputum production. Patient is active smoker Continue inhalers (5) Tobacco abuse Problem Text: Nicotine patch offered (6) DVT (deep venous thrombosis) Problem Text: Patient has history of multiple episodes of DVT Continue oral anticoagulation Plan / VTE VTE Prophylaxis Ordered?: No VTE Exclusion Pharmacological: Other (patient on oral anticoagulation) ALICIA FRANCIS DO Sep 01, 2019 14:51
[2019-09-01 15:06] VITALS: BP 168/70
[2019-09-01] MEDS ORDERED: WARFARIN SOD 7.5 MG TAB PO SCH (17:00)
[2019-09-01] MEDS: CitaloPRAM (CeleXA) 20 MG TAB PO SCH (17:22)
[2019-09-01] MEDS: SPIRONOLACTONE 25 MG TAB PO SCH (17:23)
[2019-09-01] MEDS: FUROSEMIDE 40 MG/4 ML VIAL (J1940) IV SCH (17:23)
[2019-09-01] MEDS ORDERED: MAG SULF 1GM/100ML (MAG RUN) 1 GM in IV 1 EA IV ONE (17:45)
[2019-09-01] MEDS: FLUTICASONE HFA 110 MCG 12 GM INHALER (FLOVENT) INH SCH (20:02)
[2019-09-01] MEDS: diphenhydrAMINE 50 MG CAP PO SCH (20:10)
[2019-09-01] MEDS: LOSARTAN 50 MG TAB PO SCH (20:10)
[2019-09-01] MEDS: SIMVASTATIN 20 MG TAB PO SCH (20:10)
[2019-09-01] MEDS: **hydrALAZINE** 50 MG TAB PO SCH (20:10)
[2019-09-01] MEDS: MIRTAZAPINE 15 MG TAB PO SCH (20:11)
[2019-09-01] MEDS: valACYclovir HCL 500 MG TAB PO SCH (20:11)
[2019-09-01] MEDS: ACETAMINOPHEN 500 MG TAB PO SCH (20:11)
[2019-09-01] MEDS: METOPROLOL TART 25 MG TABLET PO SCH (20:11)
[2019-09-01 21:00] VITALS: O2SAT 89
[2019-09-01 22:00] VITALS: BP 155/87
[2019-09-01 23:28] VITALS: BP 128/48
[2019-09-02] MEDS: IPRATROPIUM 0.5MG/ALBUTEROL 2.5MG INH SOL UD 3ML (DUONEB)(J7620) NEB SCH ×4 (00:14→21:25)
[2019-09-02 06:00] VITALS: BP 136/59
[2019-09-02 06:08] LABS: HEMATOCRIT 36.5 % (36.0-47.0); HEMOGLOBIN 10.8 g/dl (12.0-15.5); MEAN CORPUSCULAR HEMOGLOBIN 28.5 pg (27.0-33.0); MEAN CORPUSCULAR HGB CONC 29.6 g/dl (32.0-36.5); MEAN CORPUSCULAR VOLUME 96.3 fl (80.0-96.0); PLATELET COUNT, AUTOMATED 324 10^3/uL (150-450); RED BLOOD COUNT 3.79 10^6/uL (4.00-5.40); WHITE BLOOD COUNT 4.8 10^3/uL (4.0-10.0)
[2019-09-02 06:34] LABS: BLOOD UREA NITROGEN 17 MG/DL (7-18); CALCIUM LEVEL 9.7 MG/DL (8.8-10.2); CARBON DIOXIDE LEVEL 41 MEQ/L (21-32); CHLORIDE LEVEL 97 MEQ/L (98-107); CREATININE FOR GFR 0.57 MG/DL (0.55-1.30); GLOMERULAR FILTRATION RATE > 60.0 (>45); GLUCOSE, FASTING 171 MG/DL (70-100); POTASSIUM SERUM 4.4 MEQ/L (3.5-5.1); SODIUM LEVEL 140 MEQ/L (136-145)
[2019-09-02] MEDS: FLUTICASONE HFA 110 MCG 12 GM INHALER (FLOVENT) INH SCH ×2 (07:33→21:24)
[2019-09-02] MEDS: SPIRONOLACTONE 25 MG TAB PO SCH (08:07)
[2019-09-02] MEDS: CitaloPRAM (CeleXA) 20 MG TAB PO SCH (08:07)
[2019-09-02] MEDS: valACYclovir HCL 500 MG TAB PO SCH ×3 (08:07→21:39)
[2019-09-02] MEDS: METOPROLOL TART 25 MG TABLET PO SCH ×2 (08:07→21:40)
[2019-09-02] MEDS: LOSARTAN 50 MG TAB PO SCH ×2 (08:07→21:39)
[2019-09-02] MEDS: **hydrALAZINE** 50 MG TAB PO SCH ×3 (08:09→21:38)
[2019-09-02 09:00] VITALS: O2SAT 89
[2019-09-02 09:26] LABS: MAGNESIUM LEVEL 1.3 MG/DL (1.8-2.4)
[2019-09-02] MEDS ORDERED: MAG SULF 1GM/100ML (MAG RUN) 1 GM in IV 1 EA IV ONE (12:00)
[2019-09-02] MEDS: FUROSEMIDE 40 MG/4 ML VIAL (J1940) IV SCH ×2 (12:29)
[2019-09-02 14:00] VITALS: BP 154/57
[2019-09-02] MEDS: WARFARIN SOD 5 MG TAB PO SCH (16:59)
--- NOTE | 2019-09-02 19:22 | IPNPDOC ---
Text Note Date of Service The patient was seen on 09/02/19. NOTE Subjective: Patient stated that her breathing markedly improved. No any acute events overnight. Patient denies fever, chills, nausea, vomiting, palpitations, diarrhea or dysuria Objective: General Exam: Positive: Alert, Cooperative Eye Exam: Positive: PERRLA, Conjunctiva & lids normal ENT Exam: Positive: Atraumatic Neck Exam: Positive: Supple, JVD Chest Exam: Positive: Rales Heart Exam: Positive: Rate Normal Telemetry: Positive: No significant arrhythmia Abdomen Exam: Positive: Normal bowel sounds Extremity Exam: Negative: Clubbing, Cyanosis Skin Exam: Positive: Nl turgor and temperature Neuro Exam: Positive: Normal Gait, Strength at 5/5 X4 ext Psych Exam: Positive: Mental status NL Assessment/Plan Patient is 64 years old female with past medical history of ongoing smoker, COPD, diastolic CHF, presents with worsening shortness of breath. She had several admissions for the same issue. she is still smoking about 1 PPD, she is on home O2 at 3L [place]. She states in the last 3 days, she became more shortness of breath. Shortness of breath was associated with loss of appetite and weakness. Patient denies fever, chills, increased cough. In emergency room patient was found to have oxygenation around 80s, oxygen was increased to 4 L, oxygenation improved to 92%. White blood count 7.4, hemoglobin 11.4, BNP 3464. Problems (1) Acute respiratory failure with hypoxia and hypercapnia Status: Resolved Problem Text: Most likely secondary to CHF exacerbation Continue treatment with Lasix IV I's and O's Cardiac/diabetes diet (2) Diastolic CHF Status: Chronic Problem Text: BNP significantly elevated, patient was not compliant to her diet Lasix 40 mg IV twice a day I's and O's, limit fluid intake to 1500 (3) Diabetes Status: Chronic Problem Text: Insulin sliding scale (4) COPD (chronic obstructive pulmonary disease) Status: Chronic Problem Text: Patient stated that she has not had increased cough or sputum production. Patient is active smoker Continue inhalers (5) Tobacco abuse Problem Text: Nicotine patch offered (6) DVT (deep venous thrombosis) Problem Text: Patient has history of multiple episodes of DVT Continue oral anticoagulation VS,Fishbone, I+O VS, Fishbone, I+O Laboratory Tests 09/02/19 05:19 Vital Signs Date Time Temp Pulse Resp B/P (MAP) Pulse Ox O2 Delivery O2 Flow Rate FiO2 09/02/19 14:00 98.1 76 19 154/57 (89) 88 Nasal Cannula 4.0 I&O- Last 24 Hours up to 6 AM 09/02/19 06:00 Intake Total 1690 ml Output Total 1150 ml Balance 540 ml ALICIA FRANCIS DO Sep 02, 2019 19:22
[2019-09-02] MEDS: HumaLOG INSULIN (NovoLOG) PER UNIT SC SCH (21:00)
[2019-09-02] MEDS: diphenhydrAMINE 50 MG CAP PO SCH (21:37)
[2019-09-02] MEDS: SIMVASTATIN 20 MG TAB PO SCH (21:38)
[2019-09-02] MEDS: MIRTAZAPINE 15 MG TAB PO SCH (21:39)
[2019-09-02] MEDS: ACETAMINOPHEN 500 MG TAB PO SCH (21:41)
[2019-09-02 22:00] VITALS: BP 138/60
[2019-09-03] MEDS: FUROSEMIDE 40 MG/4 ML VIAL (J1940) IV SCH ×3 (00:30→16:00)
[2019-09-03] MEDS: IPRATROPIUM 0.5MG/ALBUTEROL 2.5MG INH SOL UD 3ML (DUONEB)(J7620) NEB SCH ×5 (01:41→20:00)
[2019-09-03 04:58] VITALS: O2SAT 93
[2019-09-03 06:00] VITALS: BP 149/65
[2019-09-03] MEDS: HumaLOG INSULIN (NovoLOG) PER UNIT SC SCH ×4 (07:30→21:00)
[2019-09-03] MEDS: FLUTICASONE HFA 110 MCG 12 GM INHALER (FLOVENT) INH SCH ×2 (07:35→19:26)
[2019-09-03] MEDS: LOSARTAN 50 MG TAB PO SCH ×2 (09:44→22:41)
[2019-09-03] MEDS: MAGNESIUM CHLORIDE 64 MG TABCR (SLO MAG) PO SCH (09:44)
[2019-09-03] MEDS: CitaloPRAM (CeleXA) 20 MG TAB PO SCH (09:45)
[2019-09-03] MEDS: SPIRONOLACTONE 25 MG TAB PO SCH (09:45)
[2019-09-03] MEDS: **hydrALAZINE** 50 MG TAB PO SCH ×3 (09:45→22:41)
[2019-09-03] MEDS: METOPROLOL TART 25 MG TABLET PO SCH ×2 (09:45→22:40)
[2019-09-03] MEDS: valACYclovir HCL 500 MG TAB PO SCH ×3 (09:45→22:39)
[2019-09-03 13:32] VITALS: O2SAT 88
[2019-09-03 14:00] VITALS: BP 115/49
[2019-09-03] MEDS: WARFARIN SOD 5 MG TAB PO SCH (18:07)
--- NOTE | 2019-09-03 18:26 | IPNPDOC ---
Text Note Date of Service The patient was seen on 09/03/19. NOTE Subjective: Patient's oxygen requirements increased today, her oxygenation 90% on 5 L via nasal cannula. No any acute events overnight. Patient denies fever, chills, nausea, vomiting, palpitations, diarrhea or dysuria Objective: General Exam: Positive: Alert, Cooperative Eye Exam: Positive: PERRLA, Conjunctiva & lids normal ENT Exam: Positive: Atraumatic Neck Exam: Positive: Supple, JVD Chest Exam: Positive: Rales Heart Exam: Positive: Rate Normal Telemetry: Positive: No significant arrhythmia Abdomen Exam: Positive: Normal bowel sounds Extremity Exam: Negative: Clubbing, Cyanosis Skin Exam: Positive: Nl turgor and temperature Neuro Exam: Positive: Normal Gait, Strength at 5/5 X4 ext Psych Exam: Positive: Mental status NL Assessment/Plan Patient is 64 years old female with past medical history of ongoing smoker, COPD, diastolic CHF, presents with worsening shortness of breath. She had several admissions for the same issue. she is still smoking about 1 PPD, she is on home O2 at 3L [place]. She states in the last 3 days, she became more shortness of breath. Shortness of breath was associated with loss of appetite and weakness. Patient denies fever, chills, increased cough. In emergency room patient was found to have oxygenation around 80s, oxygen was increased to 4 L, oxygenation improved to 92%. White blood count 7.4, hemoglobin 11.4, BNP 3464. Problems (1) Acute respiratory failure with hypoxia and hypercapnia Problem Text: Most likely secondary to CHF exacerbation Continue treatment with Lasix IV I's and O's Cardiac/diabetes diet (2) Diastolic CHF Status: Chronic Problem Text: BNP significantly elevated, patient was not compliant to her diet Lasix 40 mg IV q8 I's and O's, limit fluid intake to 1500 Will repeat echo (3) Diabetes Status: Chronic Problem Text: Insulin sliding scale (4) COPD (chronic obstructive pulmonary disease) Status: Chronic Problem Text: Patient stated that she has not had increased cough or sputum production. Patient is active smoker Continue inhalers (5) Tobacco abuse Problem Text: Nicotine patch offered (6) DVT (deep venous thrombosis) Problem Text: Patient has history of multiple episodes of DVT Continue oral anticoagulation VS,Fishbone, I+O VS, Fishbone, I+O Vital Signs Date Time Temp Pulse Resp B/P (MAP) Pulse Ox O2 Delivery O2 Flow Rate FiO2 09/03/19 18:07 132/68 09/03/19 14:00 97.9 67 21 88 Nasal Cannula 4.0 I&O- Last 24 Hours up to 6 AM 09/03/19 06:00 Intake Total 1830 ml Output Total 3300 ml Balance -1470 ml ALICIA FRANCIS DO Sep 03, 2019 18:26
[2019-09-03 19:00] LABS: INR 2.15; PROTHROMBIN TIME 23.8 SECONDS (11.8-14.0)
[2019-09-03 22:00] VITALS: BP 116/50
[2019-09-03] MEDS: ACETAMINOPHEN 500 MG TAB PO SCH (22:39)
[2019-09-03] MEDS: diphenhydrAMINE 50 MG CAP PO SCH (22:40)
[2019-09-03] MEDS: SIMVASTATIN 20 MG TAB PO SCH (22:40)
[2019-09-03] MEDS: MIRTAZAPINE 15 MG TAB PO SCH (22:40)
[2019-09-04] VITALS (9 sets, daily range): BP systolic 122–142; BP diastolic 48–81; O2SAT 89–94
[2019-09-04] MEDS: IPRATROPIUM 0.5MG/ALBUTEROL 2.5MG INH SOL UD 3ML (DUONEB)(J7620) NEB SCH ×6 (00:54→19:57)
[2019-09-04] MEDS: FUROSEMIDE 40 MG/4 ML VIAL (J1940) IV SCH ×3 (00:57→17:31)
[2019-09-04 06:18] LABS: HEMATOCRIT 41.9 % (36.0-47.0); HEMOGLOBIN 12.5 g/dl (12.0-15.5); MEAN CORPUSCULAR HEMOGLOBIN 28.9 pg (27.0-33.0); MEAN CORPUSCULAR HGB CONC 29.8 g/dl (32.0-36.5); PLATELET COUNT, AUTOMATED 357 10^3/uL (150-450); RED BLOOD COUNT 4.32 10^6/uL (4.00-5.40); WHITE BLOOD COUNT 6.7 10^3/uL (4.0-10.0)
[2019-09-04 06:51] LABS: BLOOD UREA NITROGEN 21 MG/DL (7-18); CALCIUM LEVEL 9.7 MG/DL (8.8-10.2); CARBON DIOXIDE LEVEL 40 MEQ/L (21-32); CHLORIDE LEVEL 95 MEQ/L (98-107); GLOMERULAR FILTRATION RATE > 60.0 (>45); GLUCOSE, FASTING 128 MG/DL (70-100); MAGNESIUM LEVEL 1.4 MG/DL (1.8-2.4); POTASSIUM SERUM 3.9 MEQ/L (3.5-5.1); SODIUM LEVEL 140 MEQ/L (136-145)
[2019-09-04] MEDS: FLUTICASONE HFA 110 MCG 12 GM INHALER (FLOVENT) INH SCH ×2 (08:05→19:57)
[2019-09-04] MEDS: valACYclovir HCL 500 MG TAB PO SCH ×3 (08:56→21:45)
[2019-09-04] MEDS: SPIRONOLACTONE 25 MG TAB PO SCH (08:56)
[2019-09-04] MEDS: CitaloPRAM (CeleXA) 20 MG TAB PO SCH (08:56)
[2019-09-04] MEDS: LOSARTAN 50 MG TAB PO SCH ×2 (08:57→21:45)
[2019-09-04] MEDS: **hydrALAZINE** 50 MG TAB PO SCH ×3 (08:57→21:46)
[2019-09-04] MEDS: METOPROLOL TART 25 MG TABLET PO SCH ×2 (08:57→21:44)
[2019-09-04] MEDS: HumaLOG INSULIN (NovoLOG) PER UNIT SC SCH ×4 (08:58→21:46)
[2019-09-04] MEDS: MAGNESIUM CHLORIDE 64 MG TABCR (SLO MAG) PO SCH (08:59)
[2019-09-04] MEDS: predniSONE 20 MG TAB PO SCH (13:47)
[2019-09-04] MEDS: WARFARIN SOD 5 MG TAB PO SCH (17:30)
--- NOTE | 2019-09-04 19:00 | IPNPDOC ---
Text Note Date of Service The patient was seen on 09/04/19. NOTE Subjective: Patient's oxygen requirements 6 L via nasal cannula with oxygen saturation around 90% when she patient walk. No any acute events overnight. Patient denies fever, chills, nausea, vomiting, palpitations, diarrhea or dysuria Objective: General Exam: Positive: Alert, Cooperative Eye Exam: Positive: PERRLA, Conjunctiva & lids normal ENT Exam: Positive: Atraumatic Neck Exam: Positive: Supple, JVD Chest Exam: Positive: Rales Heart Exam: Positive: Rate Normal Telemetry: Positive: No significant arrhythmia Abdomen Exam: Positive: Normal bowel sounds Extremity Exam: Negative: Clubbing, Cyanosis Skin Exam: Positive: Nl turgor and temperature Neuro Exam: Positive: Normal Gait, Strength at 5/5 X4 ext Psych Exam: Positive: Mental status NL Assessment/Plan Patient is 64 years old female with past medical history of ongoing smoker, COPD, diastolic CHF, presents with worsening shortness of breath. She had several admissions for the same issue. she is still smoking about 1 PPD, she is on home O2 at 3L [place]. She states in the last 3 days, she became more shortness of breath. Shortness of breath was associated with loss of appetite and weakness. Patient denies fever, chills, increased cough. In emergency room patient was found to have oxygenation around 80s, oxygen was increased to 4 L, oxygenation improved to 92%. White blood count 7.4, hemoglobin 11.4, BNP 3464. Problems (1) Acute respiratory failure with hypoxia and hypercapnia Problem Text: Most likely secondary to CHF exacerbation in top of sleep apnea. Dr Bates consulted patient and recommended ventilation mask for now. Sleep study in the outpatient settings Continue treatment with Lasix IV I's and O's Cardiac/diabetes diet (2) Diastolic CHF Status: Chronic Problem Text: BNP significantly elevated, patient was not compliant to her diet Lasix 40 mg IV q8 I's and O's, limit fluid intake to 1500 Will repeat echo (3) Diabetes Status: Chronic Problem Text: Insulin sliding scale (4) COPD (chronic obstructive pulmonary disease) Status: Chronic Problem Text: Patient stated that she has not had increased cough or sputum production. Patient is active smoker Added prednisone 40 mg Continue inhalers (5) Tobacco abuse Problem Text: Nicotine patch offered (6) DVT (deep venous thrombosis) Problem Text: Patient has history of multiple episodes of DVT Continue oral anticoagulation VS,Fishbone, I+O VS, Fishbone, I+O Laboratory Tests 09/04/19 05:38 Vital Signs Date Time Temp Pulse Resp B/P (MAP) Pulse Ox O2 Delivery O2 Flow Rate FiO2 09/04/19 16:00 125/52 09/04/19 14:00 98.2 64 22 90 Nasal Cannula 4.0 I&O- Last 24 Hours up to 6 AM 09/04/19 06:00 Intake Total 1030 ml Output Total 3050 ml Balance -2020 ml ALICIA FRANCIS DO Sep 04, 2019 19:00
[2019-09-04 19:12] LABS: INR 1.81; PROTHROMBIN TIME 20.7 SECONDS (11.8-14.0)
[2019-09-04] MEDS: ACETAMINOPHEN 500 MG TAB PO SCH (21:44)
[2019-09-04] MEDS: SIMVASTATIN 20 MG TAB PO SCH (21:44)
[2019-09-04] MEDS: MIRTAZAPINE 15 MG TAB PO SCH (21:45)
[2019-09-04] MEDS: diphenhydrAMINE 50 MG CAP PO SCH (21:45)
[2019-09-05] VITALS (10 sets, daily range): BP systolic 113–147; BP diastolic 46–88; O2SAT 91–98
[2019-09-05] MEDS: FUROSEMIDE 40 MG/4 ML VIAL (J1940) IV SCH ×2 (00:50→09:10)
[2019-09-05] MEDS: IPRATROPIUM 0.5MG/ALBUTEROL 2.5MG INH SOL UD 3ML (DUONEB)(J7620) NEB SCH ×3 (04:00→07:14)
[2019-09-05 05:58] LABS: HEMATOCRIT 36.8 % (36.0-47.0); HEMOGLOBIN 11.2 g/dl (12.0-15.5); MEAN CORPUSCULAR HEMOGLOBIN 28.9 pg (27.0-33.0); MEAN CORPUSCULAR HGB CONC 30.4 g/dl (32.0-36.5); MEAN CORPUSCULAR VOLUME 94.8 fl (80.0-96.0); PLATELET COUNT, AUTOMATED 360 10^3/uL (150-450); RED BLOOD COUNT 3.88 10^6/uL (4.00-5.40); WHITE BLOOD COUNT 7.1 10^3/uL (4.0-10.0)
[2019-09-05 06:18] LABS: BLOOD UREA NITROGEN 26 MG/DL (7-18); CALCIUM LEVEL 9.2 MG/DL (8.8-10.2); CARBON DIOXIDE LEVEL 41 MEQ/L (21-32); CHLORIDE LEVEL 94 MEQ/L (98-107); CREATININE FOR GFR 0.66 MG/DL (0.55-1.30); GLOMERULAR FILTRATION RATE > 60.0 (>45); GLUCOSE, FASTING 220 MG/DL (70-100); MAGNESIUM LEVEL 1.5 MG/DL (1.8-2.4); POTASSIUM SERUM 3.9 MEQ/L (3.5-5.1); SODIUM LEVEL 138 MEQ/L (136-145)
[2019-09-05] MEDS: FLUTICASONE HFA 110 MCG 12 GM INHALER (FLOVENT) INH SCH (07:14)
[2019-09-05] MEDS: HumaLOG INSULIN (NovoLOG) PER UNIT SC SCH ×2 (09:09→11:52)
[2019-09-05] MEDS: MAGNESIUM CHLORIDE 64 MG TABCR (SLO MAG) PO SCH (09:10)
[2019-09-05] MEDS: **hydrALAZINE** 50 MG TAB PO SCH (09:13)
[2019-09-05] MEDS: CitaloPRAM (CeleXA) 20 MG TAB PO SCH (09:13)
[2019-09-05] MEDS: METOPROLOL TART 25 MG TABLET PO SCH (09:14)
[2019-09-05] MEDS: SPIRONOLACTONE 25 MG TAB PO SCH (09:14)
[2019-09-05] MEDS: LOSARTAN 50 MG TAB PO SCH (09:14)
[2019-09-05] MEDS: valACYclovir HCL 500 MG TAB PO SCH (09:18)
[2019-09-05] MEDS: predniSONE 20 MG TAB PO SCH (09:18)
[2019-09-05 11:20] LABS: INR 1.83; PROTHROMBIN TIME 20.9 SECONDS (11.8-14.0)
--- NOTE | 2019-09-05 11:29 | CR ---
DATE OF CONSULTATION: 09/04/2019 CHIEF COMPLAINT: Hypoxemia. HISTORY OF PRESENT ILLNESS: Ms. Adams is a 64-year-old female with a past medical history of chronic obstructive pulmonary disease (COPD) with chronic hypoxemic respiratory failure on nasal cannula oxygen supplementation at 4 liters a minute, diabetes, hypertension, hyperlipidemia, diastolic congestive heart failure (CHF) with pulmonary hypertension, current active smoker, history of coronary artery disease (CAD), cerebrovascular accident (CVA), deep venous thrombosis (DVT) on anticoagulation, who presented with complaints of increased shortness of breath. The patient had noticed increasing shortness of breath for the past few days prior to admission. She denied any significant chest pain. Had not noticed any increased wheezing or coughing. She does have somewhat of a chronic cough, as she is still currently smoking about a pack a day. The patient denied noticing any increased lower extremity edema or increased abdominal distention. The patient reports she has been compliant with her oxygen 4 liters a minute at home. She had been seen in our pulmonary office with Yuri Esqueda, and at that time she was adjusted from her oxygen to 4 liters a minute. At her visit in our office, she has continued to report symptoms of daytime sleepiness and fatigue, as well as snoring and witnessed apneas, in the past. She does report restless sleep, as well, during the night. The patient had previously required hospitalization for acute on chronic hypercarbic respiratory failure with bilateral positive airway pressure (BiPAP). She was to followup with a sleep study as an outpatient, which she has still not had done yet, as she has not filled out her sleep paperwork. The patient reports she does need new sleep paperwork to fill out, as she was having difficulty with answering all of the questions. The patient also reports that she is frequently a mouth-breather despite wearing the nasal cannula oxygen. The patient was given intravenous (IV) diuretic with her admission, and she does feel her breathing has improved with the diuresis. PAST MEDICAL/SURGICAL HISTORY: 1. Chronic obstructive pulmonary disease (COPD) with chronic hypoxemic respiratory failure, on nasal cannula oxygen supplementation. 2. Diabetes. 3. Congestive heart failure (CHF). 4. Hyperlipidemia. 5. Hypertension. 6. History of deep venous thrombosis (DVT). 7. Partial hysterectomy. 8. Gastroesophageal reflux disease (GERD). 9. History of thyroid nodule. 10. Anemia. 11. Chronic low back pain. 12. Depression. 13. Seasonal allergies. 14. Cataract surgery. 15. Skin graft. FAMILY HISTORY: 1. Father with history of diabetes. 2. Mother from cancer. SOCIAL HISTORY: Current active smoker, one pack a day. HOME MEDICATIONS: - citalopram - Dexilant - Breo - furosemide 40 mg daily - hydralazine - glipizide - losartan - metformin - metoprolol - Remeron - multivitamin - simvastatin - spironolactone - Coumadin - DuoNebs as needed PHYSICAL EXAMINATION: Temperature 97.6, pulse 75, respirations 19, blood pressure 135/65, oxygen (O2) saturation 92% on 4 liters nasal cannula oxygen. General: The patient is an obese female. Is lying in bed in no acute respiratory distress. Is able to speak in complete sentences. Is not using any accessory muscles for respiration. HEENT: Normocephalic, atraumatic. Pupils reactive to light bilaterally. Moist mucous membranes. Neck is supple. Trachea is midline. No palpable adenopathy. Cardiovascular: Regular rate and rhythm. Normal S1, S2. Unable to appreciate any murmurs. Pulmonary: Decreased breath sounds bilaterally with faint inspiratory squeaks and wheezing with more forceful exhalation. A few crackles bilaterally at the bases. Abdomen is obese, nontender to palpation, nondistended. No palpable hepatomegaly. Extremities: Chronic venous stasis changes noted bilaterally with trace to +1 bilateral pitting edema. LABORATORIES: WBC 6.7, hemoglobin 12.5, platelets 351. Chemistry: Sodium of 140, potassium 3.9, chloride 95, bicarbonate 40, BUN 21, creatinine 0.70, glucose is 128. INR was 2.5. Magnesium 1.4, BNP 3467, troponins were negative. ABG: pH 7.361, pCO2 of 66.2, pO2 of 83.0. MICROBIOLOGY: Respiratory virus panel was negative. Blood cultures are no growth to date. IMAGING: Chest x-ray shows some mildly increased interstitial markings bilaterally with no large consolidation or opacities. There is some blunting in the right costophrenic angle suggesting trace pleural effusion. ASSESSMENT AND PLAN: Ms. Adams is a 64-year-old female with a past medical history of chronic obstructive pulmonary disease with chronic hypoxemic respiratory failure on nasal cannula oxygen supplementation at 4 liters a minute, hypertension, hyperlipidemia, diastolic congestive heart failure with pulmonary hypertension, coronary artery disease, history of deep venous thrombosis on anticoagulation, current active smoker, who presented with increased shortness of breath for the past few days. The patient was noted to have a reported history of dietary noncompliance with elevated brain natriuretic peptide (BNP) and a chest x-ray showing some mildly increased interstitial markings consistent with pulmonary edema. She was diuresed with Lasix with improvement in her shortness of breath. Pulmonary was consulted, as despite diuresis, she continued to have episodes of hypoxia on her nasal cannula oxygen supplementation and desaturations periodically. The patient was noted, however, when she is breathing through her nose on her nasal cannula oxygen that her O2 saturations will come up. She was previously on 5-6 liters of nasal cannula at one point, saturating 88%. However, with a few breaths into her nose, her saturations came up to 96%. The patient does report she is frequently a mouth-breather, and she also was noted to have episodes of desaturation when sleeping. The patient does have some suspicion for sleep apnea that she has been following up with in our pulmonary office with evaluation. She is a pending completion of sleep paperwork and a sleep study for more evaluation. On examination, the patient did have some inspiratory squeaks and some faint expiratory wheezing. Would give her a course of prednisone 40 mg daily for 5 days for possible mild exacerbation contributing, as well. - Would continue with diuretics as per her primary team. - Would continue to monitor her intake and output closely, as well as her electrolytes and repleting as needed. - Continue the patient on 4 liters nasal cannula for her oxygen supplementation. If she is mouth-breathing and desaturating, can put her on a VentiMask at 35% FIO2 for more accurate FIO2 administration and oxygenation. When she is sleeping, if she desaturates, can also place her on a VentiMask, as well. - Continue with her home inhalers and nebulizer treatments. - Continue to encourage smoking cessation for the patient. She wants to try cutting down on her own but is not interested and nicotine replacement therapy currently or other medications. - The patient does need followup as an outpatient with pulmonary and a sleep study. - Continue with Coumadin for her DVT. Her INR was therapeutic on admission, making pulmonary embolism (PE) less likely. - DVT prophylaxis, on anticoagulation. CODE STATUS: DO NOT RESUSCITATE (DNR), DO NOT INTUBATE (DNI). Please do not hesitate to call with any further questions or concerns. The patient can followup with pulmonary in 2-3 weeks after discharge. Edited 09/05/2019 aml
[2019-09-05] MEDS ORDERED: PRED20TA PO (12:41)
[2019-09-05] MEDS ORDERED: MAGN64TASA PO (12:41)
[2019-09-05] MEDS ORDERED: VALA500T5 PO (12:41)
--- NOTE | 2019-09-05 19:52 | DS.PDOC ---
Discharge Summary General Date of Admission Sep 01, 2019 at 12:42 Date of Discharge 09/05/19 Discharge Summary PROCEDURES PERFORMED DURING STAY: None ADMITTING DIAGNOSES: Acute respiratory failure with hypoxia and hypercapnia Diastolic CHF Diabetes COPD (chronic obstructive pulmonary disease) Tobacco abuse DVT (deep venous thrombosis) DISCHARGE DIAGNOSES: Acute respiratory failure with hypoxia and hypercapnia Diastolic CHF Diabetes COPD (chronic obstructive pulmonary disease) Tobacco abuse DVT (deep venous thrombosis) COMPLICATIONS/CHIEF COMPLAINT: Acute Respiratory Failure W Hypoxia And Hypercapn i. HISTORY OF PRESENT ILLNESS: Patient is 64 years old female with past medical history of ongoing smoker, COPD, diastolic CHF, presents with worsening shortness of breath. She had several admissions for the same issue. she is still smoking about 1 PPD, she is on home O2 at 3L NC. She states in the last 3 days, she became more shortness of breath. Shortness of breath was associated with loss of appetite and weakness. Patient denies fever, chills, increased cough. In emergency room patient was found to have oxygenation around 80s, oxygen was increased to 4 L, oxygenation improved to 92%. White blood count 7.4, hemoglobin 11.4, BNP 3464. Chest x-ray did not show acute cardiopulmonary process. She denies PALMER, blurred vision, abdominal pain, and n/v/D HOSPITAL COURSE: During hospital stay the following issue addressed Acute respiratory failure with hypoxia and hypercapnia Most likely secondary to CHF exacerbation Lasix IV I's and O's Cardiac/diabetes diet (2) Diastolic CHF Status: Chronic Problem Text: BNP significantly elevated, patient was not compliant to her diet Lasix 40 mg IV twice a day I's and O's, limit fluid intake to 1500 (3) Diabetes Status: Chronic Problem Text: Insulin sliding scale (4) COPD (chronic obstructive pulmonary disease) Status: Chronic Problem Text: Patient stated that she has not had increased cough or sputum production. Patient is active smoker Continue inhalers Patient has obstructive sleep apnea and she needs sleep study in the outpatient settings (5) Tobacco abuse Problem Text: Nicotine patch offered (6) DVT (deep venous thrombosis) Problem Text: Patient has history of multiple episodes of DVT Continue oral anticoagulation Plan / VTE VTE Prophylaxis Ordered?: No VTE Exclusion Pharmacological: Other (patient on oral anticoagulation) DISCHARGE MEDICATIONS: Please see below. ALLERGIES: Please see below. PHYSICAL EXAMINATION ON DISCHARGE: VITAL SIGNS: Please see below. General Exam: Positive: Alert, Cooperative Eye Exam: Positive: PERRLA, Conjunctiva & lids normal ENT Exam: Positive: Atraumatic Neck Exam: Positive: Supple, JVD Chest Exam: Positive: Rales Heart Exam: Positive: Rate Normal Telemetry: Positive: No significant arrhythmia Abdomen Exam: Positive: Normal bowel sounds Extremity Exam: Negative: Clubbing, Cyanosis Skin Exam: Positive: Nl turgor and temperature Neuro Exam: Positive: Normal Gait, Strength at 5/5 X4 ext Psych Exam: Positive: Mental status NL LABORATORY DATA: Please see below. IMAGING:Single view chest: 09/01/2019. Indication: Dyspnea. Comparison: 06/21/2019. Findings: Cardiomegaly and increased interstitial markings are redemonstrated and stable. There is no new air space consolidation. There is no evidence of pleural effusion or pneumothorax. Impression: No acute cardiopulmonary process. No change compared to 06/21/2019. PROGNOSIS: Favorable ACTIVITY: As tolerated DIET: Cardiac DISPOSITION: 01 Home, Self-Care. DISCHARGE INSTRUCTIONS: Sleep study in the outpatient settings ITEMS TO FOLLOWUP ON ON OUTPATIENT: Follow-up with supervisor [employer]inter[employer] and PCP DISCHARGE CONDITION: Stable TIME SPENT ON DISCHARGE: Greater than 20 minutes. Vital Signs/I&Os Vital Signs Date Time Temp Pulse Resp B/P (MAP) Pulse Ox O2 Delivery O2 Flow Rate FiO2 09/05/19 09:14 76 142/61 09/05/19 09:00 91 Nasal Cannula 4.0 09/05/19 06:00 98.1 18 I&O- Last 24 Hours up to 6 AM 09/05/19 06:00 Intake Total 1964 ml Output Total 2500 ml Balance -536 ml Laboratory Data Labs 24H Laboratory Tests 2 09/04/19 20:07: Bedside Glucose (Misc Panel) 341H 09/05/19 05:19: Nucleated Red Blood Cells % (auto) 0.0, Anion Gap 3L, Glomerular Filtration Rate > 60.0, Calcium Level 9.2, Magnesium Level 1.5L 09/05/19 10:49: Prothrombin Time 20.9H, Prothromb Time International Ratio 1.83 09/05/19 11:46: Bedside Glucose (Misc Panel) 66L CBC/BMP Laboratory Tests 09/05/19 05:19 FSBS Laboratory Tests Test 09/04/19 20:07 09/05/19 11:46 Range/Units Bedside Glucose (Misc Panel) 341 66 80-115 MG/DL Microbiology Microbiology 09/01/19 Blood Culture - Preliminary, Resulted No Growth after 72 hours. All specime... 09/01/19 Respiratory Virus Panel (PCR) (JOSE A) - Final, Complete 09/01/19 Blood Culture - Preliminary, Resulted No Growth after 72 hours. All specime... Discharge Medications Scheduled Acetaminophen (Acetaminophen) 500 Mg Tab, 1,000 MG PO QHS, (Reported) Citalopram Hydrobromide (Citalopram HBr) 20 Mg Tab, 20 MG PO DAILY, (Reported) Dexlansoprazole (Dexilant) 60 Mg Cap, 60 MG PO DAILY, (Reported) Diphenhydramine HCl (Benadryl) 25 Mg Cap, 50 MG PO QHS, (Reported) Fluticasone/Vilanterol (Breo Ellipta 100-25 Mcg INH) 1 Inh Inh, 1 PUFF INH DAILY, (Reported) Furosemide (Furosemide) 40 Mg Tablet, 40 MG PO DAILY, (Reported) Glipizide (Glipizide) 10 Mg Tab, 10 MG PO DAILY, (Reported) Hydralazine HCl (Hydralazine HCl) 50 Mg Tablet, 50 MG PO TID, (Reported) Losartan Potassium (Losartan Potassium) 50 Mg Tablet, 50 MG PO BID, (Reported) Magnesium Chloride (Mag64) 64 Mg Tablet.dr, 64 MG PO DAILY Metformin HCl (Metformin HCl) 500 Mg Tab, 500 MG PO BID, (Reported) Metoprolol Tartrate (Metoprolol Tartrate) 25 Mg Tablet, 25 MG PO BID, (Reported) Mirtazapine (Remeron) 30 Mg Tablet, 15 MG PO QHS, (Reported) Multivitamin (Tab-A-Nancy) 1 Tab Tab, 1 TAB PO DAILY, (Reported) Prednisone (Prednisone) 20 Mg Tablet, 40 MG PO DAILY Simvastatin (Simvastatin) 20 Mg Tab, 20 MG PO QHS, (Reported) Spironolactone (Spironolactone) 25 Mg Tablet, 25 MG PO DAILY, (Reported) Valacyclovir HCl (Valacyclovir) 500 Mg Tablet, 1,000 MG PO TID Warfarin Sodium (Warfarin Sodium) 5 Mg Tablet, 5 MG PO 5XW, (Reported) MON/WED/FRI/SAT/SUN AT 1700 Warfarin Sodium (Warfarin Sodium) 7.5 Mg Tablet, 7.5 MG PO 2XW, (Reported) TUE/THURS AT 1700 Scheduled PRN Ipratropium/Albuterol Sulfate (Iprat-Albut 0.5-3(2.5) mg/3 ml) 1 Yoni Yoni, 1 YONI INH Q4H PRN for SHORTNESS OF BREATH, (Reported) Nitroglycerin (Nitrostat) 0.4 Mg Subl, 0.4 MG SL NITRO PRN for CHEST PAIN, (Reported) Allergies Coded Allergies: latex (Verified Allergy, Unknown, 04/04/19) bupropion (Verified Adverse Reaction, Severe, violent, 04/04/19) erythromycin base (Verified Adverse Reaction, Intermediate, vomiting, 04/04/19) ALICIA FRANCIS DO Sep 05, 2019 19:52
--- NOTE | 2019-09-05 23:42 | ECHO ---
DATE OF PROCEDURE: 09/05/2019 DATE OF : 1955 AGE: 64 REFERRING PROVIDER: Dr. Eliseo Barth PATIENT LOCATION: Room 4205 REASON FOR THE STUDY: Heart failure. 2D MEASUREMENTS: IVS: 1.0 cm LV: 4.5 cm LVPW: 1.0 cm LA: 4.8 cm Aorta: 2.5 cm RV: 2.6 cm IVC: 2.4 cm DOPPLER MEASUREMENTS: Peak velocity across the aortic valve: 2.4 meters per second Peak velocity across the LVOT: 1.4 meters per second Peak gradient across the aortic valve: 23 mmHg Mean gradient across the aortic valve: 11 mmHg Mitral E: 1.5, Mitral A: 1.7 with a ratio of 0.9 Mean gradient across the mitral valve: 5 mmHg Maximum tricuspid valve velocity: 3.0 meters per second 2D COMMENTS: 1. Normal left ventricular size, wall thickness, and normal global left ventricular systolic function. The estimated left ventricular systolic ejection fraction is 65-70%. 2. Mildly enlarged left atrium. Normal right atrium and right ventricle. 3. The atrial septum appeared to be normal without evidence of defect or shunt. 4. Normal aortic root. 5. Trace pericardial effusion noted, no evidence of cardiac tamponade. 6. Moderately calcified mitral annulus, the anterior mitral valve leaflet motion appeared to be normal. Mildly calcified mitral annulus with mildly restricted leaflet motion. Normal tricuspid valve and pulmonic valve. The proximal pulmonary artery branches were not well visualized. 7. The inferior vena cava is mildly dilated, central venous pressure might be elevated. DOPPLER: It detects trace mitral regurgitation, mild tricuspid regurgitation, and mild pulmonic regurgitation. The calculated pulmonary artery systolic pressure varies between 40-50 mmHg. Abnormal relaxation pattern was noted across the mitral valve leaflets as well as the mitral valve annulus consistent with features of grade 1 left ventricular diastolic dysfunction. IMPRESSION: 1. Normal global left ventricular systolic function. There are some features of left ventricular diastolic dysfunction manifested by abnormal relaxation. 2. Aortic valve sclerosis with mild aortic stenosis but no aortic regurgitation. 3. Mitral annulus calcification with trace mitral regurgitation and probably mild calcific mitral stenosis. The left atrium is mildly enlarged at 4.8 cm. 4. Mild tricuspid regurgitation with probably moderate pulmonary hypertension. 5. Mild pulmonic regurgitation. 6. Trace pericardial effusion noted, no evidence of cardiac tamponade. 7. The inferior vena cava is mildly enlarged, central venous pressure might be elevated.
== END 2019-09-05 14:32 | disposition home or self-care (01) | DRG 291 ==
LOC: M ED 09:48 → M ED INP 12:42 → M MSPAV 15:42
PROVIDERS: ADMIT Internal Medicine; ATTEND Internal Medicine
DX: I11.0 Hypertensive heart disease with heart failure (principal); J96.21 Acute and chronic respiratory failure with hypoxia; J96.22 Acute and chronic respiratory failure with hypercapnia; J96.02 Acute respiratory failure with hypercapnia; J44.1 Chronic obstructive pulmonary disease with (acute) exacerbation; J30.2 Other seasonal allergic rhinitis; I50.33 Acute on chronic diastolic (congestive) heart failure; I87.2 Venous insufficiency (chronic) (peripheral); I27.20 Pulmonary hypertension, unspecified; D64.9 Anemia, unspecified; E11.65 Type 2 diabetes mellitus with hyperglycemia; E78.00 Pure hypercholesterolemia, unspecified; E78.5 Hyperlipidemia, unspecified; K21.9 Gastro-esophageal reflux disease without esophagitis; M54.5 Low back pain; F17.210 Nicotine dependence, cigarettes, uncomplicated; F32.9 Major depressive disorder, single episode, unspecified; G47.33 Obstructive sleep apnea (adult) (pediatric); Z99.81 Dependence on supplemental oxygen; Z79.01 Long term (current) use of anticoagulants; Z79.84 Long term (current) use of oral hypoglycemic drugs; Z79.899 Other long term (current) drug therapy; Z91.040 Latex allergy status; Z88.1 Allergy status to other antibiotic agents; Z88.8 Allergy status to other drugs, medicaments and biological substances; Z86.718 Personal history of other venous thrombosis and embolism; Z98.49 Cataract extraction status, unspecified eye; Z90.79 Acquired absence of other genital organ(s); Z91.19 Patient's noncompliance with other medical treatment and regimen; Z86.73 Personal history of transient ischemic attack (TIA), and cerebral infarction without residual deficits; Z86.39 Personal history of other endocrine, nutritional and metabolic disease

== ENCOUNTER → 2019-10-03 | Outpatient (CLI) | payer MEDICARE, MEDICAID ==
[~2019-10-03] MED LIST changes: +HYDR-3911 PO; +LOSA50TA88 PO; +MAGN64TASA PO; +VALA500T5 PO; +WARF-21 PO
--- NOTE | 2019-10-03 13:45 | REP ---
Clinical: Follow up abnormal lung findings. Technique: Axial noncontrast images from the thoracic inlet to the upper abdomen with coronal and sagittal re-formations. Comparison: 05/24/2019 Findings: Mild emphysematous changes along with scattered age-related interstitial changes and lingular fibroatelectatic change are similar to prior examination. No acute consolidation, significant nodule or mass lesion appreciated. No effusion. No pneumothorax. Tracheobronchial tree is patent. Extensive atherosclerotic changes to the thoracic aorta and coronary arteries noted without aortic aneurysm. No pericardial effusion. No obvious adenopathy. Impression: Chronic-appearing changes. No obvious acute mediastinal or pleuroparenchymal process. Atherosclerotic disease. Electronically Signed by Baltazar Jaeger MD 10/03/2019 01:37 P
== END ==
LOC: M RAD 13:18
PROVIDERS: ATTEND Physician Assistant
DX: R91.8 Other nonspecific abnormal finding of lung field (principal)

== ENCOUNTER → 2019-10-11 | Outpatient (CLI) | payer MEDICARE, MEDICAID ==
[~2019-10-11] MED LIST changes: +SIMV10TA21 PO; -SIMV20TA2 PO; +SIMV20TA22 PO
--- NOTE | 2019-10-11 12:31 | REP ---
CAROTID ULTRASOUND: Real-time ultrasound and duplex Doppler interrogation of bilateral extracranial carotid vasculature is performed. Mild to moderate scattered plaquing and narrowing is seen in both carotid bulbs and internal carotid arteries. There is mildly elevated peak systolic velocity in the proximal left internal carotid artery suggesting possible stenosis between 50 and 79%. There is no evidence of hemodynamically significant stenosis on the right. There is normal direction of flow in both vertebral arteries. RIGHT LEFT Peak systolic velocity ICA 122.9 cm/s 134.7 cm/s End diastolic velocity ICA 36.3 cm/s 35.2 cm/s Peak systolic velocity CCA 63.7 cm/s 75.9 cm/s Peak systolic velocity ECA 108.1 cm/s 106.6 cm/s ICA/CCA ratio 1.9 1.77 IMPRESSION: Mild to moderate plaquing and narrowing in both carotid bulbs and internal carotid arteries. Possible mild stenosis proximal left internal carotid artery of 50-79%. No duplex Doppler sonographic evidence of hemodynamically significant stenosis of the right internal carotid artery. Electronically Signed by Oh Teresa MD 10/11/2019 04:51 P
--- NOTE | 2019-10-11 12:39 | REP ---
BILATERAL EXTREMITY DUPLEX DOPPLER VENOUS ULTRASOUND WITH EVALUATION FOR VENOUS REFLUX: Real-time compression and duplex Doppler interrogation of bilateral lower extremity deep venous system is performed. Bilaterally, the common femoral, superficial femoral and popliteal veins are fully compressible with transducer pressure and demonstrate normal spontaneous and phasic flow without evidence of deep venous thrombosis. Evaluation for venous reflux on the right demonstrates reflux without deep venous system. There is an anterior accessory greater saphenous vein present with minimal reflux proximally. There is no reflux in any portion of the greater saphenous vein, which measures 7 mm at the saphenofemoral junction, 6 mm at the mid thigh and 5 mm at the knee. T here is no reflux in the lesser saphenous vein which measures 2 mm. Evaluation for venous reflux on the left demonstrates reflux throughout the deep venous system. There is an anterior accessory greater saphenous vein present without reflux. There is mild reflux in the greater saphenous vein at the saphenofemoral junction with duration of 3.6 seconds, AP diameter is 7 mm, as well as at the mid thigh level with a duration of 4.6 seconds, AP diameter of 5 mm. There is no reflux in the greater saphenous vein at the knee, which measures 5 mm. There is no reflux in the lesser saphenous vein which measures 2 mm. Electronically Signed by Oh Teresa MD 10/11/2019 04:56 P
== END ==
LOC: M RAD 10:13
PROVIDERS: ATTEND Physician Assistant
DX: I65.23 Occlusion and stenosis of bilateral carotid arteries (principal); I82.509 Chronic embolism and thrombosis of unspecified deep veins of unspecified lower extremity; F17.218 Nicotine dependence, cigarettes, with other nicotine-induced disorders

== ENCOUNTER 2019-10-27 11:04 | Inpatient (IN) | payer MEDICARE, MEDICAID ==
[~2019-10-27] VITALS: Ht 152.4 cm; Wt 72.8 kg
[2019-10-27] MEDS ORDERED: dexameTHASONE 20 MG/5 ML VIAL (J1100) IV ONE (11:30)
[2019-10-27] MEDS ORDERED: IPRATROPIUM 0.5MG/ALBUTEROL 2.5MG INH SOL UD 3ML (DUONEB)(J7620) NEB ONE (11:30)
[2019-10-27] MEDS ORDERED: ALBUTEROL SULFATE 2.5 MG/0.5 ML INH NEB SOLN INH ONE (11:30)
[2019-10-27 11:35] LABS: BASO # 0.1 10^3/uL (0.0-0.2); BASO % 0.6 % (0.0-1.0); EOS # 0.2 10^3/uL (0.0-0.5); EOS % 1.6 % (0.0-3.0); HEMOGLOBIN 13.9 g/dl (12.0-15.5); LYMPH # 2.9 10^3/uL (1.5-5.0); LYMPH % 28.1 % (24.0-44.0); MEAN CORPUSCULAR HEMOGLOBIN 28.8 pg (27.0-33.0); MEAN CORPUSCULAR HGB CONC 30.2 g/dl (32.0-36.5); MEAN CORPUSCULAR VOLUME 95.4 fl (80.0-96.0); MONO # 0.7 10^3/uL (0.0-0.8); MONO % 6.6 % (0.0-5.0); NEUTROPHILS # 6.4 10^3/uL (1.5-8.5); NEUTROPHILS % 62.6 % (36.0-66.0); PLATELET COUNT, AUTOMATED 366 10^3/uL (150-450); RED BLOOD COUNT 4.82 10^6/uL (4.00-5.40); WHITE BLOOD COUNT 10.2 10^3/uL (4.0-10.0)
[2019-10-27 11:47] LABS: INR 1.77; PROTHROMBIN TIME 20.4 SECONDS (11.8-14.0)
[2019-10-27] MEDS ORDERED: HALOPERIDOL 5 MG/ML VIAL (J1630) IV ONE ×2 (12:00→15:00)
[2019-10-27 12:14] LABS: ALBUMIN 3.5 GM/DL (3.2-5.2); ALT/SGPT 25 U/L (12-78); BILIRUBIN,DIRECT 0.1 MG/DL (0.0-0.2); BILIRUBIN,TOTAL 0.3 MG/DL (0.2-1.0); BLOOD UREA NITROGEN 12 MG/DL (7-18); CALCIUM LEVEL 9.3 MG/DL (8.8-10.2); CARBON DIOXIDE LEVEL 34 MEQ/L (21-32); CHLORIDE LEVEL 100 MEQ/L (98-107); CK-MB VALUE MASS 1.5 NG/ML (<3.6); CPK CREATINE PHOSPHOKINASE 55 U/L (26-192); CREATININE FOR GFR 0.77 MG/DL (0.55-1.30); GLOMERULAR FILTRATION RATE > 60.0 (>45); GLUCOSE, FASTING 179 MG/DL (70-100); MB/CK RELATIVE INDEX 2.73 (< OR =4); NT-PRO BNP 263 PG/ML (<125); POTASSIUM SERUM 4.9 MEQ/L (3.5-5.1); SODIUM LEVEL 137 MEQ/L (136-145); THYROXINE (T4) 10.9 UG/DL (4.5-12.0); TOTAL PROTEIN 8.4 GM/DL (6.4-8.2); TROPONIN I < 0.02 NG/ML (< 0.10)
--- NOTE | 2019-10-27 12:27 | REP ---
CT brain: 10/27/2019. Indication: Altered mental status. Stroke. Comparison: 03/12/2017. Technique: Unenhanced axial CT images of the brain were obtained from skull base to vertex. Findings: There is no acute intracranial hemorrhage, acute cortical infarction, mass effect or hydrocephalous. Volume loss is present. Patchy cerebral hemisphere white matter hypoattenuation is noted. Impression: No acute intracranial process. Electronically Signed by Ronald Long DO 10/27/2019 12:18 P
--- NOTE | 2019-10-27 12:33 | REP ---
CT cervical spine: 10/27/2019. Indication: Altered mental status. Cervical spine trauma. Comparison: 07/21/2014. Technique: Unenhanced axial CT images of the cervical spine were performed with coronal and sagittal reconstructions provided. Findings: Image quality is degraded by patient motion. There is no evidence of acute fracture, subluxation or dislocation. No hemorrhage or additional acute post traumatic sequelae are detected within the spinal canal. There is no evidence of severe spinal stenosis. Bilateral carotid atherosclerotic disease is present. The visualized lungs are clear. Centrilobular emphysematous sequelae of the lungs are noted. Impression: No acute osseous injury of the cervical spine detected. Electronically Signed by Ronald Long DO 10/27/2019 12:26 P
--- NOTE | 2019-10-27 13:12 | REP ---
PORTABLE CHEST: AP portable view of the chest is performed and compared to a prior study of 09/01/2019. Mild cardiomegaly is stable. There is mild calcification of the thoracic aorta. The mediastinal silhouette is unchanged. Chronic interstitial prominence is stable with no acute infiltrate. IMPRESSION: Cardiomegaly with no acute infiltrate. Stable exam. Electronically Signed by Oh Teresa MD 10/27/2019 01:47 P
[2019-10-27] MEDS ORDERED: MAGN64TASA PO (13:44)
[2019-10-27] MEDS ORDERED: METO50TA7 PO (13:44)
--- NOTE | 2019-10-27 15:12 | HPEPDOC ---
General Date of Admission Oct 27, 2019 at 13:56 Date of Service: Oct 27, 2019 Chief Complaint The patient is a 64-year-old female admitted with a reason for visit of Copd Exacerbation. Source: RN/MD Exam Limitations: Clinical conditions Associated Symptoms: Unobtainable (patient non-verbal, combative) History of Present Illness Patient is a 64 year old female admitted to the ICU with a diagnosis of Acute Metabolic Encephalopathy and COPD Exacerbation. Patient is seen in the ED on BiPAP with a sitter; no family are present and history is provided by ED staff. Family reported that the patient stayed up late last night watching TV. She was fine all day yesterday and was last seen at baseline by daughter at 0130 am on 10/27/19. Later this morning at 9:30 am when woke up found her sitting at the dining table however she was acting bizarrely - she tried to drink from her nebulizer liquid bottle and was talking in a sing song child like voice for example. They also noticed some shaking movement of her body. Family thought she may have had a stroke and promptly got her to the ED. In the [facility] ED she was 'unresponsive to verbal stimuli.' Much of this H&P is from the medical records as patient is now roused but non-verbal. Work up In the ED showed Acute on chronic respiratory failure with hypercarbia and hypoxia. she was started on BIPAP and was admitted for COPD exacerbation with acute on chronic respiratory failure with hypoxia and hypercarbia. 2 hour ABG showed some improvement. Later on in the ED she had become very agitated and violent and received 2 doses of Haldol. She was noticed to have increased generalized tremors and myoclonic jerks and had a witnessed seizure at 3:56pm which last about 40 secs. She also had a rectal temp then of 101.6. Patient was given a dose of 1 mg ativan and lindsey ded with 1000 mg of Keppra. Repeat ABG at 4:20 pm showed improvement of her pC2 from 82 to 56 however she continued to be severely acidotic with ph of 7.17 with a drop in bicarb which was now mostly metabolic acidosis. As pateint had normal renal function it was gelt that she may be having lactic acidosis after the Seizure. She was given a bolus of fluid. Repeat lactate showed elevation from 1.6 on admission to 4.2. With her fever and seizures and encephalopathy there is concern for Encephaliti s/ meningitis so she was started on empiric antibiotics and acyclovir. Neurology was consulted. Lumber pucture could not be done immediately as patient is on coumadin and has an INR of 1.8. Home Medications Scheduled Citalopram Hydrobromide (Citalopram HBr) 20 Mg Tab, 20 MG PO QHS, (Reported) Dexlansoprazole (Dexilant) 60 Mg Cap, 60 MG PO DAILY, (Reported) Diphenhydramine HCl (Benadryl) 25 Mg Cap, 50 MG PO QHS, (Reported) Fluticasone/Vilanterol (Breo Ellipta 100-25 Mcg INH) 1 Inh Inh, 1 PUFF INH DAILY, (Reported) Furosemide (Furosemide) 40 Mg Tablet, 40 MG PO DAILY, (Reported) Glipizide (Glipizide) 10 Mg Tab, 10 MG PO DAILY, (Reported) Losartan Potassium (Losartan Potassium) 50 Mg Tablet, 50 MG PO BID, (Reported) Magnesium Chloride (Mag64) 64 Mg Tablet.dr, 64 MG PO DAILY, (Reported) Metformin HCl (Metformin HCl) 500 Mg Tab, 500 MG PO BID, (Reported) Metoprolol Tartrate (Metoprolol Tartrate) 50 Mg Tablet, 50 MG PO BID, (Reported) Mirtazapine (Remeron) 30 Mg Tablet, 30 MG PO QHS, (Reported) Multivitamin (Tab-A-Nancy) 1 Tab Tab, 1 TAB PO DAILY, (Reported) Simvastatin (Simvastatin) 20 Mg Tab, 20 MG PO QHS, (Reported) Spironolactone (Spironolactone) 25 Mg Tablet, 25 MG PO DAILY, (Reported) Warfarin Sodium (Warfarin Sodium) 5 Mg Tablet, 5 MG PO 5XW, (Reported) MON/WED/FRI/SAT/SUN AT 1700 Warfarin Sodium (Warfarin Sodium) 7.5 Mg Tablet, 7.5 MG PO 2XW, (Reported) E/TH AT 1700 Scheduled PRN Acetaminophen (Acetaminophen) 500 Mg Tab, 1,000 MG PO Q6H PRN for PAIN, (Reported) Hydralazine HCl (Hydralazine HCl) 50 Mg Tablet, 50 MG PO TID PRN for HR >60, (Reported) Ipratropium/Albuterol Sulfate (Iprat-Albut 0.5-3(2.5) mg/3 ml) 1 Yoni Yoni, 1 YONI INH Q4H PRN for SHORTNESS OF BREATH, (Reported) Nitroglycerin (Nitrostat) 0.4 Mg Subl, 0.4 MG SL NITRO PRN for CHEST PAIN, (Reported) Allergies Coded Allergies: latex (Verified Allergy, Unknown, 04/04/19) bupropion (Verified Adverse Reaction, Severe, violent, 04/04/19) erythromycin base (Verified Adverse Reaction, Intermediate, vomiting, 04/04/19) Past Medical History Medical History 1. Significant for nicotine dependence. 2. Type 2 diabetes. 3. Partial hysterectomy. 4. Congestive heart failure. 5. Hypercholesterolemia. 6. Hypertension. 7. History of thrombophlebitis and deep venous thrombosis (DVT). 8. EDWNIA 9. Chronic obstructive pulmonary disease with chronic hypoxic respiratory failure, home oxygen at 2-3 liters. 10. History of GERD. 11. History of thyroid nodule without history of hypothyroidism. 12. History of anemia, unclear etiology. 13. History of venous stasis ulcers. 14. Chronic low back pain. 15. Depression. 16. Seasonal allergies. Surgical History 1. Cataracts 2. Skin graft 3. Partial Hysterectomy Family History Significant Family History: Cancer (Mother ()), Diabetes (Father) Social History * Smoker: current smoker Alcohol: Denies Drugs: denies A-FIB/CHADSVASC A-FIB History Current/History of A-Fib/PAF?: Yes Current PO Anticoag Therapy: Yes Review of Systems Other systems unobtainable (see HPI) Physical Examination General Exam: Positive: Moderate Distress (Combative throughout exam; non- verbal ) ENT Exam: Positive: Atraumatic Chest Exam: Positive: Rales Heart Exam: Positive: Rate Normal, Other (S1S2 auscultated ) Extremity Exam: Positive: Normal pulses; Negative: Clubbing, Cyanosis, Edema Skin Exam: Positive: Other skin issue (skin extremely dry, flaky) Neuro Exam: Positive: Strength at 5/5 X4 ext Psych Exam: Positive: Other (AMS) Vital Signs Vital Signs Date Time Temp Pulse Resp B/P (MAP) Pulse Ox O2 Delivery O2 Flow Rate FiO2 10/27/19 13:32 50 10/27/19 13:22 94 32 95 NIPPV (BIPAP/CPAP) 10/27/19 13:00 228/100 (142) 10/27/19 11:16 97.0 10/27/19 11:07 15.0 Laboratory Data Labs 24H Laboratory Tests 2 10/27/19 11:14: Immature Granulocyte % (Auto) 0.5, Neutrophils (%) (Auto) 62.6, Lymphocytes (%) (Auto) 28.1, Monocytes (%) (Auto) 6.6H, Eosinophils (%) (Auto) 1.6, Basophils (%) (Auto) 0.6, Neutrophils # (Auto) 6.4, Lymphocytes # (Auto) 2.9, Monocytes # (Auto) 0.7, Eosinophils # (Auto) 0.2, Basophils # (Auto) 0.1, Nucleated Red Blood Cells % (auto) 0.0, Prothrombin Time 20.4H, Prothromb Time International Ratio 1.77, Anion Gap 3L, Glomerular Filtration Rate > 60.0, Lactic Acid Level 1.6, Calcium Level 9.3, Total Bilirubin 0.3, Direct Bilirubin 0.1, Aspartate Amino Transf (AST/SGOT) 27, Alanine Aminotransferase (ALT/SGPT) 25, Alkaline Phosphatase 84, Total Creatine Kinase 55, Creatine Kinase MB 1.5, Creatine Kinase MB Relative Index 2.73, Troponin I < 0.02, DE-Fdx-C-Type Natriuretic Peptide 263H, Total Protein 8.4H, Albumin 3.5, Albumin/Globulin Ratio 0.71L, Thyroid Stimulating Hormone (TSH) 4.360H, Thyroxine (T4) 10.9 10/27/19 11:18: POC pH (Misc Panel) 7.154*L, POC Base Excess (Misc Panel) 6.0H, POC Saturated Percent O2 (Misc) 97, POC pO2 (Misc Panel) 123.0H, POC pCO2 (Misc Panel) 98.3*H, POC HCO3 (Misc Panel) 34.6H, POC Total CO2 (Misc Panel) 38.0H 10/27/19 13:30: POC pH (Misc Panel) 7.211*L, POC Base Excess (Misc Panel) 6.0H, POC Saturated Percent O2 (Misc) 94L, POC pO2 (Misc Panel) 88.0, POC pCO2 (Misc Panel) 85.2*H, POC HCO3 (Misc Panel) 34.2H, POC Total CO2 (Misc Panel) 37.0H CBC/BMP Laboratory Tests 10/27/19 11:14 Microbiology Microbiology 10/27/19 Blood Culture, Received Pending 10/27/19 Respiratory Virus Panel (PCR) (JOSE A) - Final, Complete 10/27/19 Blood Culture, Received Pending Assessment/Plan Patient is a 64 year old female admitted to the ICU with a diagnosis of Acute Metabolic Encephalopathy and COPD Exacerbation with Acute on chronic respiratory failure with hypercabia and hypoxia. Patient is seen in the ED on BiPAP with a sitter; no family are present and history is provided by ED staff. Family reported that the patient stayed up late last night watching TV. She was fine all day yesterday and was last seen at baseline by daughter at 0130 am on 10/27/19. Later this morning at 9:30 am when woke up found her sitting at the dining table however she was acting bizarrely - she tried to drink from her nebulizer liquid bottle and was talking in a sing song child like voice for example. They also noticed some shaking movement of her body. Family thought she may have had a stroke and promptly got her to the ED. In the [facility] ED she was 'unresponsive to verbal stimuli.' Much of this H&P is from the medical records as patient is now roused but non-verbal. Work up In the ED showed Acute on chronic respiratory failure with hypercarbia and hypoxia. she was started on BIPAP and was admitted for COPD exacerbation with acute on chronic respiratory failure with hypoxia and hypercarbia. 2 hour ABG showed some improvement. Later on in the ED she had become very agitated and violent and received 2 doses of Haldol. She was noticed to have increased generalized tremors and myoclonic jerks and had a witnessed seizure at 3:56pm which last about 40 secs. She also had a rectal temp then of 101.6. Patient was given a dose of 1 mg ativan and loaded with 1000 mg of Keppra. Repeat ABG at 4:20 pm showed improvement of her pC2 from 82 to 56 however she continued to be severely acidotic with ph of 7.17 with a drop in bicarb which was now mostly metabolic acidosis. As pateint had normal renal function it was gelt that she may be having lactic acidosis after the Seizure. She was given a bolus of fluid. Repeat lactate showed elevation from 1.6 on admission to 4.2. With her fever and seizures and encephalopathy there is concern for Encephalitis/ meningitis so she was started on empiric antibiotics and acyclovir. Neurology was consulted. Lumber pucture could not be done immediately as patient is on coumadin and has an INR of 1.8. Pt has a PMHx which includes: DVT and Pulmonary embolism on coumadin, End stage COPD with chronic hypoxic respiratory failure, nicotine dependence, T2DM, CHF, HTN, HLD, EDWINA untreated, Venous stasis ulcers, GERD, home O2 dependence (5 L). She has been admitted to the hospital on several occasions for COPD exacerbation and chronic respiratory failure. Imaging: CXR Impression: "Cardiomegaly with no acute infiltrate. Stable exam." CT Head w/out contrast Impression: "No acute intracranial process." CT C-Spine w/out contrast Impression: "No acute osseous injury of the cervical spine detected." Acute on Chronic respiratory failure with hypoxia and hypercarbia continue on BIPAP, hypercarbia improving Keep NPO till mental status improves consulted pulmonary. Fever with Seizures with mental status change CT negative for any acute event. Cannot get MRI right now as patient too unstable. ? Encephalitis/Menigitis/ medication related. Whether pateint took wrong medications at home accidentally or not will have to ask when available. Daughter did say that she was sitting at the dining table with the nebulizer solution bottle in her hand trying to squirt it into her mouth. LP could not be done as patient on Coumadin and INR at 1.8 will try for tomorrow discussed with daughter. She is concerned as patient has "pseudotumor next to the lower spine". will cover with ceftriaxone, vanco, ampicillin and acyclovir Keppra Avoid ativan as patient is obtunded consulted Neurology Severe metabolic acidosis with respiratory acidosis after Seizure possibly due to lactic acidosis given fluid bolus. and maintainer fluid monitor lactate. Patient has h/o CHF so will have to watch for fluid overload. Acute metabolic encephalopathy due to hypercarbia and Seizures, R/O [employer] infection sitter if needed. she did receive 2 doses of haldol with some response. COPD Exacerbation: - pulmonary consult - resume inhalers once feasible CHF, Diastolic: - check BNP - does not appear volume overloaded on exam - will need Is and Os T2DM: - d/c any oral antiglycemics - insulin per sliding scale if needed. -NPO now , FS q6h will aim for blood glucose off 150 to 180 -Do not give insulin if FS below 150. HTN: - hold home medications at this time - patient is significantly hypertensive; will need to resume home meds VIVEK HLD: - hold PO med at this time EDWINA: - on BiPAP History of DVT and [place] - on chronic Warfarin therapy -will hold coumadin tonight and hold off on giving heparin overnight as would try to get an LP tomorrow. If LP cannot be done will put the patient on therapeutic lovenox or heparin infusion. Plan / VTE VTE Prophylaxis Ordered?: Yes LAQUITA NORIEGA PA-C Oct 27, 2019 15:12 TEETEE ADAN MD Oct 28, 2019 00:33
[2019-10-27] MEDS ORDERED: ACETAMINOPHEN 650 MG SUPP PR SCH (16:15)
[2019-10-27] MEDS ORDERED: LORazepam 2 MG/ML VIAL (J2060) IV PRN (16:15)
[2019-10-27] MEDS ORDERED: levETIRAcetam INJection 1,000 MG in D5W 100 ML IV ONE (16:15)
[2019-10-27] MEDS ORDERED: ACETAMINOPHEN 650 MG SUPP PR PRN (16:15)
[2019-10-27 16:25] LABS: ABG BASE EXCESS -8.8 (-2.0-2.0); ABG HCO3 20.2 MEQ/L (22.0-26.0); ABG O2 SATURATION 94.9 % (95.0-99.0); ABG PARTIAL PRESSURE CO2 56.3 mmHg (35.0-45.0); ABG PARTIAL PRESSURE O2 91.5 mmHg (75.0-100.0); ABG STANDARD HCO3 17.4 MEQ/L (22.0-26.0); ABG TOTAL CO2 21.9 MEQ/L (23.0-31.0)
[2019-10-27 16:27] LABS: ABG pH (ARTERIAL) 7.172 UNITS (7.350-7.450)
[2019-10-27] MEDS ORDERED: LORazepam 2 MG/ML VIAL (J2060) As Ordered ONE (16:27)
[2019-10-27] MEDS: levETIRAcetam INJection 500 MG in D5W MINI-BAG PLUS 100 ML IV SCH ×2 (16:39→17:23)
[2019-10-27] MEDS ORDERED: SODIUM CHLORIDE 0.9% 1000ML IV ONE (16:45)
[2019-10-27] MEDS ORDERED: LORazepam 2 MG/ML VIAL (J2060) IV STA (16:46)
[2019-10-27] MEDS ORDERED: cefTRIAXone SOD 2 GM in D5W MINI-BAG PLUS 50 ML IV SCH (17:00)
[2019-10-27 17:14] VITALS: BP 169/73
[2019-10-27] MEDS: NS 1,000 ML IV SCH (17:25)
--- NOTE | 2019-10-27 17:26 | IPNPDOC ---
Text Note Date of Service The patient was seen on 10/27/19. NOTE Confirmed with daughter patient is DNR and DNI. They do not want her to be put on a ventilation or to be resuscitated if her heart stops. They have the MOLST form at home. will bring it in tomorrow. VS,Fishbone, I+O VS, Fishbone, I+O Laboratory Tests 10/27/19 11:14 Vital Signs Date Time Temp Pulse Resp B/P (MAP) Pulse Ox O2 Delivery O2 Flow Rate FiO2 10/27/19 16:46 81 24 94 NIPPV (BIPAP/CPAP) 45 10/27/19 16:31 147/65 (92) 10/27/19 15:47 101.6 10/27/19 11:07 15.0 TEETEE ADAN MD Oct 27, 2019 17:26
[2019-10-27] MEDS: ACYCLOVIR 1,000 MG in D5W 250 ML IV SCH (18:46)
[2019-10-27 18:51] LABS: ABG BASE EXCESS 2.9 (-2.0-2.0); ABG HCO3 29.9 MEQ/L (22.0-26.0); ABG O2 SATURATION 96.4 % (95.0-99.0); ABG TOTAL CO2 31.6 MEQ/L (23.0-31.0); ABG pH (ARTERIAL) 7.345 UNITS (7.350-7.450)
[2019-10-27 18:53] LABS: BASO % 0.1 % (0.0-1.0); HEMATOCRIT 43.2 % (36.0-47.0); HEMOGLOBIN 13.1 g/dl (12.0-15.5); LYMPH # 0.5 10^3/uL (1.5-5.0); LYMPH % 6.9 % (24.0-44.0); MEAN CORPUSCULAR HEMOGLOBIN 28.6 pg (27.0-33.0); MEAN CORPUSCULAR HGB CONC 30.3 g/dl (32.0-36.5); MEAN CORPUSCULAR VOLUME 94.3 fl (80.0-96.0); MONO # 0.1 10^3/uL (0.0-0.8); MONO % 0.9 % (0.0-5.0); NEUTROPHILS # 7.1 10^3/uL (1.5-8.5); NEUTROPHILS % 91.8 % (36.0-66.0); RED BLOOD COUNT 4.58 10^6/uL (4.00-5.40); WHITE BLOOD COUNT 7.8 10^3/uL (4.0-10.0)
[2019-10-27 19:01] LABS: PLATELET COUNT, AUTOMATED 262 10^3/uL (150-450)
[2019-10-27 19:19] LABS: BLOOD UREA NITROGEN 16 MG/DL (7-18); CALCIUM LEVEL 9.1 MG/DL (8.8-10.2); CARBON DIOXIDE LEVEL 33 MEQ/L (21-32); CHLORIDE LEVEL 101 MEQ/L (98-107); CREATININE FOR GFR 0.92 MG/DL (0.55-1.30); GLOMERULAR FILTRATION RATE > 60.0 (>45); GLUCOSE, FASTING 288 MG/DL (70-100); POTASSIUM SERUM 5.2 MEQ/L (3.5-5.1); SODIUM LEVEL 136 MEQ/L (136-145)
[2019-10-27] MEDS: AMPICILLIN SOD 2 GM in D5W MINI-BAG PLUS 100 ML IV SCH (19:59)
[2019-10-27 20:00] VITALS: BP 174/79
[2019-10-27] MEDS ORDERED: HALOPERIDOL 5 MG/ML VIAL (J1630) IM PRN (20:00)
--- NOTE | 2019-10-27 20:15 | PHACANCOPD ---
PHARMACY VANCOMYCIN DOSING Pt Demographics Demographics Patient Age:64 , Weight:89.600 , Gender: female Adjusted Body Weight Date: 10/27/19, Adjusted Body Weight: [65] Kg Events Past 24 Hours Events Past 24 Hours: NO: Dialysis, Diuretic Therapy, Change in CrCl, Fever, Elevation in WBC, Pending Diagnostics, Pending Procedures, Other Vancomycin Vancomycin indication: [employer] INF Vancomycin Target Ranges: 15-20 mcg/ml Vancomycin Load Y/N: Yes Load Dose Date Time Vancomycin Load Dose: 2GM Date: 10/27/19 Time: 21:00 Vancomycin Dose Date: 10/28/19. Current Vancomycin Dose: [1GM IV Q12H (09:00)] Intermittent Dosing?: No Labs Labs Laboratory Tests 10/27/19 11:14 10/27/19 18:32 Micro Microbiology 10/27/19 Blood Culture, Received Pending 10/27/19 Respiratory Virus Panel (PCR) (JOSE A) - Final, Complete 10/27/19 Blood Culture, Received Pending Creatinine Clearance Date:10/27/19. Creatinine Clearance: [>50ml/min]. Assessment and Plan Maintaining Current Dose?: Yes Reason for dose change: No Dose Change Pharmacist Note Pharmacist Note Date: 10/27/19. PharmD note: VANCO 1GM IV Q12H FOLLOWING A 2GM LOAD. NOTED COMPLEX ABX REGIMEN WITH MULTIPLE FREQUENCIES. DOSES SPREAD OUT MUCH POSSIBLE WITHOUT INTERFERENCE. VANCO TROUGH WHEN AT STEADY STATE [facility] Oct 27, 2019 20:14
[2019-10-27 20:19] VITALS: O2SAT 96
[2019-10-27 20:46] VITALS: BP 137/69
[2019-10-27 21:00] VITALS: BP 131/56
[2019-10-27] MEDS ORDERED: LORazepam 2 MG/ML VIAL (J2060) IM PRN (21:00)
[2019-10-27] MEDS ORDERED: VANCOMYCIN HCL 1,000 MG, VIAL MATE ADAPTER 1 EACH in D5W 250 ML IV ONE ×2 (21:00→22:00)
[2019-10-27] MEDS: HEPARIN SOD (PORCINE) 5000 UNITS/ML VIAL SC SCH (21:25)
[2019-10-27] MEDS: FORMOTEROL FUMARATE 20 MCG/2 ML INHALATION SOLUTION (PERFOROMIST) INH SCH (21:26)
[2019-10-27] MEDS: BUDESONIDE 0.5 MG/2 ML INHALATION SUSPENSION INH SCH (21:26)
[2019-10-27] MEDS: LORazepam 2 MG/ML VIAL (J2060) IV PRN (21:35)
[2019-10-27 23:00] VITALS: BP 152/69
[2019-10-28] VITALS (28 sets, daily range): BP systolic 108–183; BP diastolic 55–80; O2SAT 96
[2019-10-28] MEDS ORDERED: DEXTROSE 50% 50 ML SYRINGE IV PRN (00:30)
[2019-10-28] MEDS ORDERED: GLUCOSE 4 GM CHEW TABLET PO PRN (00:30)
[2019-10-28] MEDS ORDERED: GLUCAGON FOR INJ 1 MG VIAL (J1610) SC PRN (00:30)
[2019-10-28] MEDS ORDERED: ALBUTEROL SULFATE 2.5 MG/0.5 ML INH NEB SOLN NEB PRN (00:30)
[2019-10-28] MEDS: HumaLOG INSULIN (NovoLOG) PER UNIT SC SCH ×5 (00:37→23:40)
[2019-10-28] MEDS: hydrALAZINE INJ 20 MG/ML VIAL IV SCH ×4 (01:00→18:16)
[2019-10-28] MEDS: ACYCLOVIR 1,000 MG in D5W 250 ML IV SCH ×3 (01:47→17:30)
[2019-10-28] MEDS: AMPICILLIN SOD 2 GM in D5W MINI-BAG PLUS 100 ML IV SCH ×4 (01:47→20:04)
[2019-10-28] MEDS: levETIRAcetam INJection 500 MG in D5W MINI-BAG PLUS 100 ML IV SCH ×2 (03:52→15:21)
[2019-10-28 04:45] LABS: BASO % 0.1 % (0.0-1.0); EOS % 0.1 % (0.0-3.0); HEMOGLOBIN 11.6 g/dl (12.0-15.5); LYMPH % 14.1 % (24.0-44.0); MEAN CORPUSCULAR HGB CONC 31.4 g/dl (32.0-36.5); MEAN CORPUSCULAR VOLUME 92.5 fl (80.0-96.0); MONO # 0.6 10^3/uL (0.0-0.8); MONO % 7.8 % (0.0-5.0); NEUTROPHILS # 5.5 10^3/uL (1.5-8.5); NEUTROPHILS % 77.8 % (36.0-66.0); PLATELET COUNT, AUTOMATED 247 10^3/uL (150-450)
[2019-10-28 05:06] LABS: BLOOD UREA NITROGEN 12 MG/DL (7-18); CALCIUM LEVEL 8.4 MG/DL (8.8-10.2); CARBON DIOXIDE LEVEL 33 MEQ/L (21-32); CHLORIDE LEVEL 101 MEQ/L (98-107); CREATININE FOR GFR 0.58 MG/DL (0.55-1.30); GLOMERULAR FILTRATION RATE > 60.0 (>45); GLUCOSE, FASTING 202 MG/DL (70-100); MAGNESIUM LEVEL 1.2 MG/DL (1.8-2.4); POTASSIUM SERUM 4.6 MEQ/L (3.5-5.1); SODIUM LEVEL 137 MEQ/L (136-145)
[2019-10-28] MEDS: NS 1,000 ML IV SCH (06:28)
[2019-10-28] MEDS: MAG SULF 1GM/100ML (MAG RUN) 1 GM in IV 1 EA IV SCH ×2 (06:33→08:02)
[2019-10-28 06:52] LABS: ABG BASE EXCESS 4.3 (-2.0-2.0); ABG HCO3 30.9 MEQ/L (22.0-26.0); ABG O2 SATURATION 96.8 % (95.0-99.0); ABG PARTIAL PRESSURE CO2 55.4 mmHg (35.0-45.0); ABG STANDARD HCO3 28.3 MEQ/L (22.0-26.0); ABG TOTAL CO2 32.6 MEQ/L (23.0-31.0); ABG pH (ARTERIAL) 7.364 UNITS (7.350-7.450)
[2019-10-28] MEDS: BUDESONIDE 0.5 MG/2 ML INHALATION SUSPENSION INH SCH ×2 (07:47→20:35)
[2019-10-28] MEDS: FORMOTEROL FUMARATE 20 MCG/2 ML INHALATION SOLUTION (PERFOROMIST) INH SCH ×2 (07:47→20:35)
[2019-10-28 08:35] LABS: INR 1.74; PROTHROMBIN TIME 20.1 SECONDS (11.8-14.0)
[2019-10-28 08:36] LABS: PARTIAL THROMBOPLASTIN TIME 32.9 SECONDS (25.0-38.4)
[2019-10-28] MEDS: VANCOMYCIN HCL 1,000 MG, VIAL MATE ADAPTER 1 EACH in D5W 250 ML IV SCH ×2 (09:29→22:08)
[2019-10-28] MEDS: HEPARIN SOD (PORCINE) 5000 UNITS/ML VIAL SC SCH ×2 (09:29→22:08)
[2019-10-28] MEDS: cefTRIAXone SOD 2 GM in D5W MINI-BAG PLUS 50 ML IV SCH ×2 (11:28→23:27)
[2019-10-28] MEDS ORDERED: LIDOCAINE 1% MDV 20ML VIAL As Ordered ONE (12:07)
[2019-10-28 12:16] LABS: ABG BASE EXCESS 4.9 (-2.0-2.0); ABG HCO3 31.3 MEQ/L (22.0-26.0); ABG O2 SATURATION 92.5 % (95.0-99.0); ABG PARTIAL PRESSURE CO2 54.7 mmHg (35.0-45.0); ABG PARTIAL PRESSURE O2 66.9 mmHg (75.0-100.0); ABG STANDARD HCO3 28.8 MEQ/L (22.0-26.0); ABG pH (ARTERIAL) 7.376 UNITS (7.350-7.450)
[2019-10-28 13:05] LABS: HEP C VIRUS AB INDEX SOURCE PT 0.2 INDEX (0.0-0.8); HEPATITIS A ANTIBODY IGM NEGATIVE (NEGATIVE); HEPATITIS B CORE ANTIBODY IGM NEGATIVE (NEGATIVE); HEPATITIS B SURFACE ANTIGEN NEGATIVE (NEGATIVE)
--- NOTE | 2019-10-28 14:25 | CR ---
DATE OF CONSULTATION: 10/28/2019 REASON FOR CONSULTATION: I was asked by Dr. Moore to evaluate Ms. Adams for acute on chronic hypercapnic respiratory failure. HISTORY OF PRESENT ILLNESS: Ms. Adams is a 64-year-old female with past medical history significant for Chronic obstructive pulmonary disease (COPD) with hypoxemia and hypercapnia, diabetes mellitus, hypertension, diastolic congestive heart failure, pulmonary hypertension, coronary artery disease, history of cerebrovascular accident (CVA) and deep venous thrombosis (DVT) who was brought to the emergency department yesterday after being found confused in the morning. Ms. Adams is not able to provide much history at the present time. I reviewed her [facility] records. Per her admission note, her family had seen her on the day prior to admission and felt that she was well. She was last seen around 1:30 on the morning of 10/27/2019 and described as well. Around 9:30 in the morning when her woke up, he found her sitting at the kitchen table but acting bizarrely. She was trying to drink from her nebulizer liquid bottle and singing a song. They also noticed some shaking movements of her body and thought perhaps she was having a CVA. She was brought to the emergency department. In the emergency department, she was described as unresponsive to verbal stimuli. As part of her evaluation, she had arterial blood gas done which showed acute on chronic hypercapnic respiratory failure and she was started on noninvasive mechanical ventilation (NIMV). Part of her failure was likely secondary to having had supplementation likely 100% on the ambulance ride to the ED. Her repeat arterial blood gas was correcting when she became agitated and violent in the emergency department. She received two doses of Haldol and she had increased generalized tremors and myoclonic jerks and a witnessed seizure that lasted about 40 seconds. She had a rectal temperature of 101.6. She was treated with Ativan and loaded with Keppra. With her fever, seizures and confusion, it was thought that she may have encephalitis or meningitis and she was started empirically on Rocephin, ampicillin and vancomycin as well as started on acyclovir. A lumbar puncture could not be done as she had a INR of 1.82. It was unclear whether or not she may have taken other of her home medications inadvertently to cause some of her respiratory changes. There was no history upon the time of admission suggestive of COPD exacerbation. I spoke with Dr. Moore last evening on some of her blood gases, one of which is clearly an error. Her blood gas had essentially corrected by 6:38 p.m. and it remained corrected this morning. She is off the NIMV. She is easy to arouse and will say a few words such as hello. She did not know she was in the hospital. When told that, asked why. She could not tell me the month or what holiday was nearby. She denies any specific complaints of feeling unwell. ALLERGIES: BUPROPION, ERYTHROMYCIN latex. I do not know what the reactions are to these substances. OUTPATIENT MEDICATIONS: - acetaminophen and 1000 mg by mouth every 6 hours as needed - Lopressor 20 mg by mouth nightly - DexAlone 60 mg by mouth daily. - Benadryl 50 mg by mouth nightly - Breo 100/25 one puff daily - Lasix 40 mg by mouth daily - glipizide 10 mg by mouth daily - hydralazine 50 mg by mouth three times a day as needed heart rate greater than 60 - - DuoNeb 1 neb every 4 hours as needed - losartan potassium 58 mg by mouth twice a day - Mag 64 by mouth daily - metformin 500 mg by mouth twice a day - metoprolol 50 mg by mouth twice a day - Remeron 30 mg by mouth nightly - multivitamin one by mouth daily - Nitrostat 0.4 mg sublingual as needed - simvastatin 20 mg by mouth daily - spironolactone 25 mg by mouth daily - warfarin 5 mg by mouth every Thursday, Thursday, Thursday, Thursday and Thursday and 7.5 mg by mouth every Thursday, PAST MEDICAL HISTORY: 1. Chronic obstructive pulmonary disease (COPD) with hypercapnia and hypoxemia. 2. Diabetes mellitus. 3. Diastolic congestive heart. 4. Pulmonary hypertension. 5. Dyslipidemia. 6. Hypertension. 7. Gastroesophageal reflux disease (GERD) 8. History of deep venous thrombosis (DVT). 9. Chronic lower back pain. 10. Depression. 11. Status post partial hysterectomy. 12. History of thyroid nodule. 13. Status post cataract surgery. 14. Status post skin graft. 15. Tobacco usage, ongoing. FAMILY HISTORY: Her father had diabetes mellitus. Her mother from cancer. SOCIAL HISTORY: Ms. Adams is a current smoker and averages one pack per day. Reportedly she does not drink alcohol or use street drugs. REVIEW OF SYSTEMS: Unattainable from the patient at present due to mental status. What is known is contained within the history of present illness (HPI). PHYSICAL EXAMINATION: GENERAL: Ms. Adams is lying in bed appearing in no acute distress. No cough on evaluation. She is arousable to light touch but responds slowly to questions and if she responds at all it is only in single words. Is not clear that she is oriented. VITAL SIGNS: Temperature 98.5 with a T-max of 98.7, pulse 70, respiratory rate 22, blood pressure 108/55, sPO2 90% on 5 liters by nasal cannula. HEENT: Anicteric. Pupils show 2-3 mm and reactive. Nares: Patent bilaterally. Oropharynx clear. No lesions, crowded posterior pharynx. NECK: Supple, without apparent jugular venous distention (JVD), without thyromegaly or masses, trachea is midline. LYMPH: Without cervical or supraclavicular lymphadenopathy. LUNGS: Symmetric excursion, fair air entry, no wheeze, rhonchi or significant crackle on tidal excursion. Prolonged expiratory phase. No accessory muscle usage or retractions. CARDIOVASCULAR: Regular rate and rhythm with a normal S1, S2, no murmur, rub or gallop appreciated. ABDOMEN: Positive bowel sounds. She does appear to wince with palpation. No rebound or guarding. No hepatosplenomegaly or masses appreciated. EXTREMITIES: Chronic venous stasis changes bilaterally, without clubbing, cyanosis significant edema. Palpable pedal pulses bilaterally. LABORATORY DATA: CBC from this morning showed a hemoglobin 11.6, hematocrit 37, platelet count 247,000 and white blood cell count 7000 with a differential of 78% neutrophils, 14% lymphocytes and 8% monocytes. Her presenting CBC showed a WBC of 10.2 with a differential of 63% neutrophils, 28% lymphocytes and 7% monocytes. Chemistries this morning shows a sodium 137, potassium 4.6, chloride 101, bicarbonate 33, anion gap 3, BUN 12, creatinine 0.6, glucose 202, calcium 8.4, magnesium 1.2 and an INR 1.7. Arterial blood gas from this morning on noninvasive mechanical ventilation was 7.36/55/92 with a measured saturation 97% a base excess of 4.3. Her presenting ABG had been 7.15/98/123 with a measured saturation of 97% and base excess was 6. Her most recent arterial blood gas on 5 liters by nasal cannula after having been off NIMV for close to 4 hours was 7.38/55/67 with a measured saturation of 93%, a base excess of 4.9. I reviewed her chest x-ray as well as report from yesterday. That x-ray showed mildly enlarged cardiac silhouette. Normal appearing pulmonary vascular shadows. Normal-appearing mediastinal and hilar region. No acute infiltrates. IMPRESSION: 1. Acute and chronic hypercapnic respiratory failure. It is not clear to me that this is truly a COPD exacerbation. Her lung function is poor enough that she will not compensate for increased metabolic production of CO2 such as seizure or fever and that may explain some of her retention. I suspect some worsening was secondary to use of 100% oxygen. I also questioned whether she may have taken some of her meds inadvertently, which could decrease her drive as she has several medications that may affect her respiratory function. She has no findings suggestive of an exacerbation due to an infective process and again I do not feel that lungs were the cause of this rather could not handle what caused her other difficulties 2. Altered mental status: While she is awake, she is not responding to questions appropriately. I do not know her baseline. Given her fever and the descriptions of her behavior, I question that she may not have an encephalopathy. I feel meningitis is less likely; I did not detect nuchal rigidity. 3. Chronic obstructive pulmonary disease (COPD) with hypoxemia and hypercapnia baseline. 4. Pulmonary hypertension. 5. Diastolic heart failure. 6. Diabetes mellitus. 7. Hypertension. 8. History of deep venous thrombosis (DVT). I could not find any documentation as to whether this was a provoked or unprovoked phenomenon. That would be helpful to determine that she still truly needs to be on anticoagulation. 9. Tobacco usage, ongoing the time of admission. 10. Infections disease (ID) on ampicillin, vancomycin, Rocephin and acyclovir. 11. DVT prophylaxis with sequential compression device and thromboembolic deterrent stockings (TEDS). 12. Seizures, on Keppra. 13. Stress ulcer prophylaxis: Not currently on medication. RECOMMENDATIONS: 1. I agree with not being on systemic corticosteroids as I do not believe she has classic COPD exacerbation but rather could not handle other issues with increased CO2 production and also possibly took additional medications. 2. Agree with continuing on inhaled corticosteroid / LABA, and as-needed bronchodilators and LAMA could be considered. 3. In regards to her acute hypercapnia, that appears to be resolved. An arterial blood gas obtained 4 hours after discontinuing the NIMV is appropriate. 4. There have been questions as to whether or not she has underlying obstructive sleep apnea (EDWINA). It is reasonable to watch her closely and if she has any changes in mental status or oxygen requirements, would repeat an arterial blood gas and restarting NIMV. At the present time, I would not empirically place her on the device. 5. Agree with neurology consult and continuing IV antibiotics and acyclovir until their evaluation. Critical care time 40 minutes not including procedure time. ALENA
[2019-10-28] MEDS: PANTOPRAZOLE 40MG INJ (PROTONIX) (C9113) IV SCH (18:22)
[2019-10-28] MEDS ORDERED: SODIUM CHLORIDE 0.9% INJ 10 ML SYR IV PRN (18:45)
[2019-10-28] MEDS ORDERED: FUROSEMIDE 100 MG/10 ML VIAL (J1940) IV ONE (19:30)
[2019-10-28] MEDS: IPRATROPIUM 0.02% SOLN 0.5MG/2.5 ML NEB INH SCH (20:00)
--- NOTE | 2019-10-28 22:17 | ECGEPIP ---
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
[2019-10-28] MEDS: ACETAMINOPHEN 325 MG/10.15 ML UDC PO PRN (23:59)
[2019-10-29] VITALS (7 sets, daily range): BP systolic 138–188; BP diastolic 66–86
[2019-10-29] MEDS: hydrALAZINE INJ 20 MG/ML VIAL IV SCH ×4 (00:15→18:24)
[2019-10-29] MEDS: AMPICILLIN SOD 2 GM in D5W MINI-BAG PLUS 100 ML IV SCH ×4 (01:34→20:21)
[2019-10-29] MEDS: ACYCLOVIR 1,000 MG in D5W 250 ML IV SCH ×3 (01:35→18:04)
[2019-10-29] MEDS ORDERED: LORazepam 2 MG/ML VIAL (J2060) As Ordered ONE (01:44)
[2019-10-29] MEDS: LORazepam 2 MG/ML VIAL (J2060) IV PRN (01:47)
[2019-10-29] MEDS: IPRATROPIUM 0.02% SOLN 0.5MG/2.5 ML NEB INH SCH ×4 (02:28→18:13)
[2019-10-29] MEDS: levETIRAcetam INJection 500 MG in D5W MINI-BAG PLUS 100 ML IV SCH (04:54)
[2019-10-29 06:07] LABS: BASO % 0.5 % (0.0-1.0); EOS # 0.1 10^3/uL (0.0-0.5); EOS % 1.1 % (0.0-3.0); HEMATOCRIT 36.7 % (36.0-47.0); HEMOGLOBIN 11.3 g/dl (12.0-15.5); LYMPH # 1.2 10^3/uL (1.5-5.0); LYMPH % 14.4 % (24.0-44.0); MEAN CORPUSCULAR HEMOGLOBIN 28.9 pg (27.0-33.0); MEAN CORPUSCULAR HGB CONC 30.8 g/dl (32.0-36.5); MEAN CORPUSCULAR VOLUME 93.9 fl (80.0-96.0); MONO # 0.7 10^3/uL (0.0-0.8); MONO % 8.2 % (0.0-5.0); NEUTROPHILS # 6.3 10^3/uL (1.5-8.5); NEUTROPHILS % 75.6 % (36.0-66.0); PLATELET COUNT, AUTOMATED 220 10^3/uL (150-450); RED BLOOD COUNT 3.91 10^6/uL (4.00-5.40); WHITE BLOOD COUNT 8.4 10^3/uL (4.0-10.0)
[2019-10-29 06:30] LABS: ABG BASE EXCESS 10.3 (-2.0-2.0); ABG O2 SATURATION 91.1 % (95.0-99.0); ABG PARTIAL PRESSURE CO2 59.3 mmHg (35.0-45.0); ABG PARTIAL PRESSURE O2 61.1 mmHg (75.0-100.0); ABG STANDARD HCO3 33.9 MEQ/L (22.0-26.0); ABG TOTAL CO2 38.8 MEQ/L (23.0-31.0); ABG pH (ARTERIAL) 7.413 UNITS (7.350-7.450)
[2019-10-29 06:40] LABS: BLOOD UREA NITROGEN 8 MG/DL (7-18); CALCIUM LEVEL 9.4 MG/DL (8.8-10.2); CARBON DIOXIDE LEVEL 36 MEQ/L (21-32); CHLORIDE LEVEL 96 MEQ/L (98-107); CREATININE FOR GFR 0.57 MG/DL (0.55-1.30); GLOMERULAR FILTRATION RATE > 60.0 (>45); GLUCOSE, FASTING 108 MG/DL (70-100); POTASSIUM SERUM 3.5 MEQ/L (3.5-5.1); SODIUM LEVEL 139 MEQ/L (136-145)
--- NOTE | 2019-10-29 06:46 | IPNPDOC ---
Subjective Date Seen The patient was seen on 10/28/19. Subjective Chief Complaint/HPI Patient awake and alert today and knws she is in the hospital . She is off BIPA. She is refusing LP and refused MRi of brain. However did agree to the PICC line. Complains of some SOB, denies any headache or neck pain. No further fevers in the hospital. Objective Physical Examination General Exam: Positive: Alert, Cooperative, No Acute Distress Eye Exam: Positive: PERRLA, Conjunctiva & lids normal, EOMI; Negative: Sclera icteric ENT Exam: Positive: Atraumatic, Mucous membr. moist/pink, Pharynx Normal Neck Exam: Positive: Supple Chest Exam: Positive: Rales, Rhonchi, Wheezing, Diminished Heart Exam: Positive: Rate Normal, Regular Rhythm, Normal S1, Normal S2; Negative: Murmurs, Rubs Telemetry: Positive: No significant arrhythmia Abdomen Exam: Positive: Normal bowel sounds, Soft; Negative: Tenderness, Hepatospenomegaly Extremity Exam: Negative: Clubbing, Cyanosis, Edema Skin Exam: Positive: Other skin issue (skin extremely dry, flaky) Neuro Exam: Positive: Normal Speech, Strength at 5/5 X4 ext, Normal Tone Psych Exam: Positive: Anxiety, Other (oriented to place and person) Assessment /Plan Assessment Patient is a 64 year old female with PMH of DVT and Pulmonary embolism on coumadin, End stage COPD with chronic hypoxic respiratory failure, nicotine dependence, T2DM, CHF, HTN, HLD, EDWINA untreated, Venous stasis ulcers, GERD, obesity admitted to the ICU with a diagnosis of Acute Metabolic Encephalopathy and COPD Exacerbation with Acute on chronic respiratory failure with hypercabia and hypoxia. Patient was brought to the ED for altered mental status, tremors of the body and suspicion of stroke. Family reported that the patient stayed up late last night watching TV. She was fine all day yesterday and was last seen at baseline by daughter at 0130 am on 10/27/19. Later this morning at 9:30 am when woke up found her sitting at the dining table however she was acting bizarrely - she tried to drink from her nebulizer liquid bottle and was talking in a sing song child like voice for example. They also noticed some shaking movement of her body. Family thought she may have had a stroke and promptly got her to the ED. In the [facility] ED she was 'unresponsive to verbal stimuli. 'Work up In the ED showed Acute on chronic respiratory failure with hypercarbia and hypoxia. she was started on BIPAP and was admitted for COPD exacerbation with acute on chronic respiratory failure with hypoxia and hypercarbia. 2 hour ABG showed some improvement. Later on in the ED she had become very agitated and violent and received 2 doses of Haldol. She was noticed to have increased generalized tremors and myoclonic jerks and had a witnessed seizure at 3:56pm which last about 40 secs. She also had a rectal temp then of 101.6. Patient was given a dose of 1 mg ativan and loaded with 1000 mg of Keppra. Repeat ABG at 4:20 pm showed improvement of her pC2 from 82 to 56 however she continued to be severely acidotic with ph of 7.17 with a drop in bicarb which was now mostly metabolic acidosis. As patient had normal renal function it was felt that she may be having lactic acidosis after the Seizure. She was given a bolus of fluid. Repeat lactate showed elevation from 1.6 on admission to 4.2. With her fever and seizures and encephalopathy there is concern for Encephalitis/ meningitis so she was started on empiric antibiotics and acyclovir. Neurology was consulted. Lumber puncture could not be done immediately as patient is on coumadin and has an INR of 1.8. Acute on Chronic respiratory failure with hypoxia and hypercarbia improved. Now at baseline chronic hypoxic and hypercarbic respiratory failure consulted pulmonary. Off BIPAP continue nebs. Fever with Seizures with mental status change CT negative for any acute event. Pateint refused MRI ? Encephalitis/Menigitis/ medication related. Patient may have taken wrong medications at home accidentally Daughter did say that she was sitting at the dining table with the nebulizer solution bottle in her hand trying to squirt it into her mouth. LP could not be done as patient on Coumadin and INR at 1.8 and even after giving FFP IR felt it was too high risk for bleeding. Also patient refused the procedure. will try for tomorrow through anesthesia. discussed with daughter. She is concerned as patient has "pseudotumor next to the lower spine". will cover with ceftriaxone, vanco, ampicillin and acyclovir Keppra , EEG. consulted Neurology Severe metabolic acidosis with respiratory acidosis patient may have seizure at home with respiratory compromise leading to severe respiratory acidosis. Seizur in the ED again caused the lactic acidosis which lead to the metabolic acidosis. received IVF. Patient has h/o CHF so will have to watch for fluid overload. 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 she did receive 2 doses of haldol with some response. COPD Exacerbation this is probably secondary to seizures causing acute respiratory compromise she improved too rapidly for a severe COPD exacerbation. pulmonary consult Continue nebs. will not give any steroids. CHF, Diastolic: does not appear volume overloaded on exam However is gross positve balance so will give 1 dose of lasix. T2DM: insulin per sliding scale if needed. FS q6h will aim for blood glucose off 150 to 180 Do not give insulin if FS below 150. HTN: will have hydralazine IV available HLD: hold PO med at this time EDWINA: untreated as she is severely claustrophobic. GERD pantoprazole History of DVT and KS on chronic Warfarin therapy will hold coumadin as pending LP. If LP cannot be done will put the patient on therapeutic lovenox or heparin infusion. Plan/VTE VTE Prophylaxis Ordered?: Yes VS, I&O, 24H, [facility] Vital Signs/I&O Vital Signs Date Time Temp Pulse Resp B/P (MAP) Pulse Ox O2 Delivery O2 Flow Rate FiO2 10/29/19 04:00 96.6 80 18 138/72 (94) 90 Nasal Cannula 4.0 10/28/19 09:00 45 I&O- Last 24 Hours up to 6 AM 10/29/19 06:00 Intake Total 4692 ml Output Total 3740 ml Balance 952 ml Laboratory Data 24H LABS Laboratory Tests 2 10/28/19 06:46: Blood Gas Bicarbonate Standard 28.3H, Arterial Blood pH 7.364, Arterial Blood Partial Pressure CO2 55.4H, Arterial Blood Partial Pressure O2 92.0, Arterial Blood Total CO2 32.6H, Arterial Blood HCO3 30.9H, Arterial Blood Base Excess 4.3H, Arterial Blood Oxygen Saturation 96.8 10/28/19 08:12: Prothrombin Time 20.1H, Prothromb Time International Ratio 1.74, Activated Partial Thromboplast Time 32.9 10/28/19 11:55: Blood Gas Bicarbonate Standard 28.8H, Arterial Blood pH 7.376, Arterial Blood Partial Pressure CO2 54.7H, Arterial Blood Partial Pressure O2 66.9L, Arterial Blood Total CO2 33.0H, Arterial Blood HCO3 31.3H, Arterial Blood Base Excess 4.9H, Arterial Blood Oxygen Saturation 92.5L 10/28/19 12:00: Bedside Glucose (Misc Panel) 194H 10/28/19 17:35: Bedside Glucose (Misc Panel) 110 10/28/19 23:29: Bedside Glucose (Misc Panel) 138H 10/29/19 05:46: Immature Granulocyte % (Auto) 0.2, Neutrophils (%) (Auto) 75.6H, Lymphocytes (%) (Auto) 14.4L, Monocytes (%) (Auto) 8.2H, Eosinophils (%) (Auto) 1.1, Basophils (%) (Auto) 0.5, Neutrophils # (Auto) 6.3, Lymphocytes # (Auto) 1.2L, Monocytes # (Auto) 0.7, Eosinophils # (Auto) 0.1, Basophils # (Auto) 0.0, Nucleated Red Bloo d Cells % (auto) 0.0 CBC/BMP Laboratory Tests 10/29/19 05:46 Microbiology Microbiology 10/27/19 Blood Culture - Preliminary, Resulted No growth after 24 hours . All specim... 10/27/19 Respiratory Virus Panel (PCR) (JOSE A) - Final, Complete 10/27/19 Blood Culture - Preliminary, Resulted TEETEE ADAN MD Oct 29, 2019 06:46
[2019-10-29] MEDS: HumaLOG INSULIN (NovoLOG) PER UNIT SC SCH ×3 (07:00→18:00)
[2019-10-29] MEDS: SODIUM CHLORIDE 0.9% INJ 10 ML SYR IV SCH ×2 (07:01→18:05)
[2019-10-29 07:16] LABS: INR 1.76; PROTHROMBIN TIME 20.3 SECONDS (11.8-14.0)
[2019-10-29 07:17] LABS: PARTIAL THROMBOPLASTIN TIME 32.2 SECONDS (25.0-38.4)
[2019-10-29] MEDS: FORMOTEROL FUMARATE 20 MCG/2 ML INHALATION SOLUTION (PERFOROMIST) INH SCH ×2 (07:39→18:13)
[2019-10-29] MEDS: BUDESONIDE 0.5 MG/2 ML INHALATION SUSPENSION INH SCH ×2 (07:39→18:13)
[2019-10-29] MEDS ORDERED: PHYTONADIONE 5 MG TAB PO ONE (08:00)
[2019-10-29] MEDS ORDERED: LOSARTAN 25 MG TAB PO SCH (09:00)
--- NOTE | 2019-10-29 09:09 | REP ---
PICC line insertion under ultrasound guidance. The procedure was performed by FOX Angela, under the direct supervision of Dr. Robles. The risks and benefits of the procedure were explained to the patient and informed consent was obtained both verbally and written. Directly prior to the start of the procedure, a formal timeout was completed in the procedure room. The right basilic vein was localized using ultrasound guidance. The skin was prepped and draped in the sterile fashion. 2 ml 1% lidocaine 10 mg/ml was used as a local anesthetic. Using ultrasound guidance the right basilic vein was cannulated and a 0.018 guidewire was inserted and advanced to the SVC using fluoroscopic guidance. The needle was removed and a 5.5 [place] dilator and peel-away sheath was inserted over the guidewire. A 5.5 [place] double lumen catheter was cut to the length of 37 cm. The dilator was removed and the catheter was inserted over the guide wire with the tip ending in the SVC. The peel-away sheath was removed and the catheter was flushed with heparinized saline as per hospital protocol. The catheter was affixed to the skin and a sterile dressing was applied. The patient tolerated the procedure well and there were no immediate complications. 0.1 minutes of fluoroscopy time was utilized for this procedure. Some fluoroscopic images are performed with last image hold technology. These images require no additional radiation. Reviewed by FOX Calderon 10/28/2019 05:46 P Electronically Signed by Marcio Robles MD 10/29/2019 09:01 A
[2019-10-29] MEDS: VANCOMYCIN HCL 1,000 MG, VIAL MATE ADAPTER 1 EACH in D5W 250 ML IV SCH ×2 (09:40→21:05)
[2019-10-29] MEDS: PANTOPRAZOLE 40MG INJ (PROTONIX) (C9113) IV SCH (09:40)
[2019-10-29] MEDS: cefTRIAXone SOD 2 GM in D5W MINI-BAG PLUS 50 ML IV SCH ×2 (09:40→22:17)
[2019-10-29] MEDS: HEPARIN SOD (PORCINE) 5000 UNITS/ML VIAL SC SCH ×2 (09:41→20:20)
--- NOTE | 2019-10-29 09:56 | IPNPDOC ---
Subjective Date Seen The patient was seen on 10/29/19. Subjective Chief Complaint/HPI Very agitated and confused overnight. trying to get out of bed pulling line. Having some distress in breathing. No fever or chills, no seizures, Objective Physical Examination General Exam: Positive: Alert, Cooperative, Mild Distress Eye Exam: Positive: PERRLA, Conjunctiva & lids normal, EOMI; Negative: Sclera icteric ENT Exam: Positive: Atraumatic, Mucous membr. moist/pink, Pharynx Normal Neck Exam: Positive: Supple Chest Exam: Positive: Rales, Rhonchi, Wheezing, Diminished Heart Exam: Positive: Rate Normal, Regular Rhythm, Normal S1, Normal S2; Negative: Murmurs, Rubs Telemetry: Positive: No significant arrhythmia Abdomen Exam: Positive: Normal bowel sounds, Soft; Negative: Tenderness, Hepatospenomegaly Extremity Exam: Negative: Clubbing, Cyanosis, Edema Skin Exam: Positive: Other skin issue (skin extremely dry, flaky) Neuro Exam: Positive: Normal Speech, Normal Tone Psych Exam: Positive: Anxiety, Other (oriented to place and person) Assessment /Plan Assessment Patient is a 64 year old female with PMH of DVT and Pulmonary embolism on coumadin, End stage COPD with chronic hypoxic respiratory failure, nicotine dependence, T2DM, CHF, HTN, HLD, EDWINA untreated, Venous stasis ulcers, GERD, obesity admitted to the ICU with a diagnosis of Acute Metabolic Encephalopathy and COPD Exacerbation with Acute on chronic respiratory failure with hypercabia and hypoxia. Patient was brought to the ED for altered mental status, tremors of the body and suspicion of stroke. Family reported that the patient stayed up late last night watching TV. She was fine all day yesterday and was last seen at baseline by daughter at 0130 am on 10/27/19. Later this morning at 9:30 am when woke up found her sitting at the dining table however she was acting bizarrely - she tried to drink from her nebulizer liquid bottle and was talking in a sing song child like voice for example. They also noticed some sh aking movement of her body. Family thought she may have had a stroke and promptly got her to the ED. In the [facility] ED she was 'unresponsive to verbal stimuli. 'Work up In the ED showed Acute on chronic respiratory failure with hypercarbia and hypoxia. she was started on BIPAP and was admitted for COPD exacerbation with acute on chronic respiratory failure with hypoxia and hypercarbia. 2 hour ABG showed some improvement. Later on in the ED she had become very agitated and violent and received 2 doses of Haldol. She was noticed to have increased generalized tremors and myoclonic jerks and had a witnessed seizure at 3:56pm which last about 40 secs. She also had a rectal temp then of 101.6. Patient was given a dose of 1 mg ativan and loaded with 1000 mg of Keppra. Repeat ABG at 4:20 pm showed improvement of her pC2 from 82 to 56 however she continued to be severely acidotic with ph of 7.17 with a drop in bicarb which was now mostly metabolic acidosis. As patient had normal renal function it was felt that she may be having lactic acidosis after the Seizure. She was given a bolus of fluid. Repeat lactate showed elevation from 1.6 on admission to 4.2. With her fever and seizures and encephalopathy there is concern for Encephalitis/ meningitis so she was started on empiric antibiotics and acyclovir. Neurology was consulted. Lumber puncture could not be done immediately as patient is on coumadin and has an INR of 1.8. Acute on Chronic respiratory failure with hypoxia and hypercarbia improved. Now at baseline chronic hypoxic and hypercarbic respiratory failure consulted pulmonary. Off BIPAP continue nebs. Fever with Seizures with mental status change CT negative for any acute event. Patient refused MRI . She is very clautrophobic ? Encephalitis/Menigitis/ medication related. Patient may have taken wrong medications at home accidentally . However daughter says she counted all her pills and everything was accounted for. She does nto have access to any one else's medication bottles. Daughter did say that she was sitting at the dining table with the nebulizer solution bottle in her hand trying to squirt it into her mouth. LP could not be done as patient on Coumadin and INR at 1.8 and even after giving FFP IR felt it was too high risk for bleeding. Also patient refused the procedure. will try for tomorrow through anesthesia. discussed with daughter. She is concerned as patient has "pseudotumor next to the lower spine". will cover with ceftriaxone, vanco, ampicillin and acyclovir Keppra , EEG. consulted Neurology Blood culture1/2 bottles bacillus sp. Skin commensal. Severe metabolic acidosis with respiratory acidosis patient may have seizure at home with respiratory compromise leading to severe respiratory acidosis. Seizur in the ED again caused the lactic acidosis which lead to the metabolic acidosis. received IVF. Patient has h/o CHF so will have to watch for fluid overload. Acute metabolic encephalopathy due to hypercarbia and Seizures, R/O [employer] infection sitter if needed. she did receive 2 doses of haldol with some response. COPD Exacerbation this is probably secondary to seizures causing acute respiratory compromise she improved too rapidly for a severe COPD exacerbation. pulmonary consult Continue nebs. will not give any steroids. CHF, Diastolic: does not appear volume overloaded on exam will restart spironolactone. Will give lasix as needed. T2DM: insulin per sliding scale if needed. FS q6h will aim for blood glucose off 150 to 180 Do not give insulin if FS below 150. HTN: restart metoprolol, and losartan at lower dose. HLD: hold PO med at this time EDWINA: untreated as she is severely claustrophobic. GERD pantoprazole History of DVT and [place] on chronic Warfarin therapy will hold coumadin as pending LP. give vit k. If LP cannot be done will put the patient on therapeutic lovenox or heparin infusion. INR still at 1.8 . once less than 1.5 will start lovenox. Plan/VTE VTE Prophylaxis Ordered?: Yes VS, I&O, 24H, Deshawnbonolena Vital Signs/I&O Vital Signs Date Time Temp Pulse Resp B/P (MAP) Pulse Ox O2 Delivery O2 Flow Rate FiO2 10/29/19 08:00 98.5 89 19 168/82 (110) 91 Nasal Cannula 4.0 10/28/19 09:00 45 I&O- Last 24 Hours up to 6 AM 10/29/19 05:59 Intake Total 4117 ml Output Total 3890 ml Balance 227 ml Laboratory Data 24H LABS Laboratory Tests 2 10/28/19 11:55: Blood Gas Bicarbonate Standard 28.8H, Arterial Blood pH 7.376, Arterial Blood Partial Pressure CO2 54.7H, Arterial Blood Partial Pressure O2 66.9L, Arterial Blood Total CO2 33.0H, Arterial Blood HCO3 31.3H, Arterial Blood Base Excess 4.9 H, Arterial Blood Oxygen Saturation 92.5L 10/28/19 12:00: Bedside Glucose (Misc Panel) 194H 10/28/19 17:35: Bedside Glucose (Misc Panel) 110 12/20/19 23:29: Bedside Glucose (Misc Panel) 138H 10/29/19 05:46: Immature Granulocyte % (Auto) 0.2, Neutrophils (%) (Auto) 75.6H, Lymphocytes (%) (Auto) 14.4L, Monocytes (%) (Auto) 8.2H, Eosinophils (%) (Auto) 1.1, Basophils (%) (Auto) 0.5, Neutrophils # (Auto) 6.3, Lymphocytes # (Auto) 1.2L, Monocytes # (Auto) 0.7, Eosinophils # (Auto) 0.1, Basophils # (Auto) 0.0, Nucleated Red Blood Cells % (auto) 0.0, Anion Gap 7L, Glomerular Filtration Rate > 60.0, Calcium Level 9.4 10/29/19 06:18: Blood Gas Bicarbonate Standard 33.9H, Arterial Blood pH 7.413, Arterial Blood Partial Pressure CO2 59.3H, Arterial Blood Partial Pressure O2 61.1L, Arterial Blood Total CO2 38.8H, Arterial Blood HCO3 37.0H, Arterial Blood Base Excess 10.3H, Arterial Blood Oxygen Saturation 91.1L 10/29/19 06:52: Prothrombin Time 20.3H, Prothromb Time International Ratio 1.76, Activated Partial Thromboplast Time 32.2 10/29/19 08:04: Vancomycin Level Trough 12.6 CBC/BMP Laboratory Tests 10/29/19 05:46 Microbiology Microbiology 10/29/19 Blood Culture, Received Pending 10/27/19 Blood Culture - Preliminary, Resulted No growth after 24 hours . All specim... 10/27/19 Respiratory Virus Panel (PCR) (JOSE A) - Final, Complete 10/27/19 Blood Culture - Final, Complete Bacillus Sp., Not Anthracis TEETEE ADAN MD Oct 29, 2019 09:56
[2019-10-29] MEDS: SPIRONOLACTONE 25 MG TAB PO SCH (11:15)
[2019-10-29] MEDS: METOPROLOL TART 50 MG TAB PO SCH ×2 (11:18→20:20)
--- NOTE | 2019-10-29 12:46 | CR ---
DATE OF CONSULTATION: 10/29/2019 REFERRING PROVIDER: Dr. Penelope Moore HISTORY OF PRESENT ILLNESS: Celeste Adams is a 64-year-old female with a past medical history significant for longstanding history of chronic obstructive pulmonary disease (COPD), history of atrial fibrillation and history of deep vein thrombosis (DVT) on anticoagulation. The patient presents to the hospital after being found in the morning to be confused by her boyfriend. The patient was noted in the morning to be trying to drink of her inhaler. The patient was brought in the emergency department where she had a witnessed generalized tonic-clonic seizure. She was noted to be in metabolic acidosis with a pH 7.1. The patient was placed on BiPAP, as she has wishes to not be intubated and does not want resuscitation. Due to the seizure, the patient was given Keppra. She was given a dose of Ativan as well. Keppra has been maintained at 500 mg twice a day to prevent any seizures. The patient was noted to have a rectal temperature of 101.6. She was started on vancomycin, ampicillin, ceftriaxone and acyclovir in the setting of possible meningitis or encephalitis causing her symptoms. The patient had a repeat pH of 7.2 and then a repeat pH again of 7.1. The patient's INR was 1.77. The patient is unresponsive and quite lethargic. She was given 10 mg of Haldol and 2 mg of Ativan for her agitation in the emergency room after her seizure. Head CT was completed, which did not reveal any significant intracranial process. The patient has been having tremulousness of the left upper extremity, on occasion the whole body. The patient has had baseline left upper extremity tremors in the past. She does not carry a diagnosis of Parkinson's disease, but, according to the daughter, has not been worked up for it either. The patient has longstanding history of prior strokes . PAST MEDICAL HISTORY: Longstanding history of tobacco abuse, COPD, type 2 diabetes, partial hysterectomy, congestive heart failure, hypercholesterolemia, hypertension, history of thrombophlebitis and deep vein thrombosis, obstructive sleep apnea, chronic obstructive pulmonary disease with chronic hypoxia and respiratory failure home oxygen at 2 to 3 liters a day, history of gastroesophageal reflux disease, history of thyroid nodule without history of hypothyroidism, history of anemia, unclear etiology, history of venous stasis ulcers, chronic low back pain, depression, seasonal allergies. PAST SURGICAL HISTORY: Cataract surgery, skin graft, partial hysterectomy. FAMILY HISTORY: Noncontributory. SOCIAL HISTORY: The patient is a current smoker. Denies use of alcohol, illicit drugs. REVIEW OF SYSTEMS: Unobtainable due the patient's current mental status. ALLERGIES: LATEX, BUPROPION, ERYTHROMYCIN. HOME MEDICATIONS: - citalopram - Dexilant - Benadryl - fluticasone - Vilanterol - furosemide - glipizide - losartan - potassium - magnesium chloride - metformin - metoprolol - mirtazapine - multivitamin - simvastatin - spironolactone - Coumadin - acetaminophen - hydralazine - ipratropium - albuterol - nitroglycerin PHYSICAL EXAMINATION: Blood pressure is 147/65, pulse rate 81, respiratory rate is 24, oxygenation is 94% on BiPap, FIO2 45%, temperature is 101.6 degrees Fahrenheit. Current height is 5 feet 0 inches. Current weight is 89.6 kg. The patient is unable to open her eyes and follow commands. She is spontaneously noted to move all four extremities. She has a tremor of the left upper extremity, when she coughs she has a tremor of the whole body. Pupils are round and reactive to light. The patient does have doll's eye positive. Cranial nerves are intact. Deep tendon reflexes are present in the upper extremities, reduced distally. The patient reacts to noxious stimuli in all four extremities. Limited exam due to the patient's current mental status. ASSESSMENT: 64-year-old female with respiratory failure, longstanding history of oxygen-dependent chronic obstructive pulmonary disease (COPD) with hypoxic respiratory failure on home oxygen been presenting with metabolic acidosis and new-onset seizure, confusion, altered mental status, and possible hemiparesis noted earlier in the emergency room, suspicion for stroke, suspicion for meningitis, encephalitis. PLAN: 1. Agree with obtaining EEG and obtaining MRI brain without contrast. Agree with obtaining a lumbar puncture to rule out infectious causes to better streamline antibiotic therapy or discontinue it if not necessary. Continue hydration. Continue anticoagulation, though consider fresh frozen plasma, vitamin K to perform lumbar puncture. Continue supportive medical care. History obtained from the patient's two daughters, including healthcare proxy and boyfriend. Continue Keppra 500 mg p.o. b.i.d. to prevent seizures at this point.
[2019-10-29] MEDS: ACETAMINOPHEN 325 MG/10.15 ML UDC PO PRN (18:27)
[2019-10-29 18:35] LABS: INR 1.31
[2019-10-29 18:36] LABS: PARTIAL THROMBOPLASTIN TIME 31.5 SECONDS (25.0-38.4)
[2019-10-29] MEDS: LOSARTAN 50 MG TAB PO SCH (20:20)
[2019-10-29] MEDS: levETIRAcetam 250MG TABLET (KEPPRA) PO SCH (20:20)
[2019-10-29] MEDS: RAMELTEON 8 MG TAB (ROZEREM) PO SCH (23:00)
[2019-10-30] VITALS (8 sets, daily range): BP systolic 138–199; BP diastolic 60–100
[2019-10-30] MEDS: hydrALAZINE INJ 20 MG/ML VIAL IV SCH ×4 (01:00→18:43)
[2019-10-30] MEDS: AMPICILLIN SOD 2 GM in D5W MINI-BAG PLUS 100 ML IV SCH ×3 (01:59→13:30)
[2019-10-30] MEDS: ACYCLOVIR 1,000 MG in D5W 250 ML IV SCH ×3 (02:41→17:52)
[2019-10-30] MEDS: IPRATROPIUM 0.02% SOLN 0.5MG/2.5 ML NEB INH SCH ×4 (02:45→20:00)
[2019-10-30 05:34] LABS: BASO # 0.1 10^3/uL (0.0-0.2); BASO % 0.9 % (0.0-1.0); EOS # 0.2 10^3/uL (0.0-0.5); EOS % 3.3 % (0.0-3.0); HEMATOCRIT 38.2 % (36.0-47.0); HEMOGLOBIN 12.2 g/dl (12.0-15.5); LYMPH % 15.8 % (24.0-44.0); MEAN CORPUSCULAR HGB CONC 31.9 g/dl (32.0-36.5); MEAN CORPUSCULAR VOLUME 90.7 fl (80.0-96.0); MONO # 0.7 10^3/uL (0.0-0.8); NEUTROPHILS # 4.6 10^3/uL (1.5-8.5); NEUTROPHILS % 69.7 % (36.0-66.0); PLATELET COUNT, AUTOMATED 229 10^3/uL (150-450); RED BLOOD COUNT 4.21 10^6/uL (4.00-5.40); WHITE BLOOD COUNT 6.6 10^3/uL (4.0-10.0)
[2019-10-30 05:52] LABS: BLOOD UREA NITROGEN 7 MG/DL (7-18); CALCIUM LEVEL 9.3 MG/DL (8.8-10.2); CARBON DIOXIDE LEVEL 32 MEQ/L (21-32); CHLORIDE LEVEL 97 MEQ/L (98-107); CREATININE FOR GFR 0.56 MG/DL (0.55-1.30); GLOMERULAR FILTRATION RATE > 60.0 (>45); GLUCOSE, FASTING 132 MG/DL (70-100); POTASSIUM SERUM 3.6 MEQ/L (3.5-5.1); SODIUM LEVEL 135 MEQ/L (136-145)
[2019-10-30] MEDS: HumaLOG INSULIN (NovoLOG) PER UNIT SC SCH ×4 (05:59→17:52)
[2019-10-30] MEDS: SODIUM CHLORIDE 0.9% INJ 10 ML SYR IV SCH ×2 (06:32→17:52)
[2019-10-30] MEDS: BUDESONIDE 0.5 MG/2 ML INHALATION SUSPENSION INH SCH ×2 (08:01→20:49)
[2019-10-30] MEDS: FORMOTEROL FUMARATE 20 MCG/2 ML INHALATION SOLUTION (PERFOROMIST) INH SCH ×2 (08:01→20:49)
[2019-10-30] MEDS: METOPROLOL TART 50 MG TAB PO SCH ×2 (08:05→21:28)
[2019-10-30] MEDS: PANTOPRAZOLE 40MG INJ (PROTONIX) (C9113) IV SCH (08:05)
[2019-10-30] MEDS: HEPARIN SOD (PORCINE) 5000 UNITS/ML VIAL SC SCH ×2 (08:05→21:29)
[2019-10-30] MEDS: LOSARTAN 50 MG TAB PO SCH ×2 (08:06→21:28)
[2019-10-30] MEDS: levETIRAcetam 250MG TABLET (KEPPRA) PO SCH ×2 (08:06→21:27)
[2019-10-30] MEDS: SPIRONOLACTONE 25 MG TAB PO SCH (08:06)
[2019-10-30 08:49] LABS: INR 1.13; PARTIAL THROMBOPLASTIN TIME 31.6 SECONDS (25.0-38.4); PROTHROMBIN TIME 14.2 SECONDS (11.8-14.0)
[2019-10-30] MEDS: VANCOMYCIN HCL 1,000 MG, VIAL MATE ADAPTER 1 EACH in D5W 250 ML IV SCH (09:56)
--- NOTE | 2019-10-30 10:29 | IPNPDOC ---
Subjective Date Seen The patient was seen on 10/30/19. Subjective Chief Complaint/HPI Pateint has lost several days. the last thing she remembers is thursday nig dinner then she remembers from late thursday10/28/19. Today seen sitting up in recliner comfortable. Denies any SOB. Say her COPD is OK, no fever ro chills, no neck pain or stiffness. No nausea or vomiting or diarrehea, Poor appetite. Very unsteady on feet. As per daughter she grabs on to furniture at home while walking and uses WC when goes out of the house. Objective Physical Examination General Exam: Positive: Alert, Cooperative, No Acute Distress, Other Eye Exam: Positive: PERRLA, Conjunctiva & lids normal, EOMI; Negative: Sclera icteric ENT Exam: Positive: Atraumatic, Mucous membr. moist/pink, Pharynx Normal Neck Exam: Positive: Supple Chest Exam: Positive: Clear to auscultation, Diminished Heart Exam: Positive: Rate Normal, Regular Rhythm, Normal S1, Normal S2; Negative: Murmurs, Rubs Telemetry: Positive: No significant arrhythmia Abdomen Exam: Positive: Normal bowel sounds, Soft; Negative: Tenderness, Hepatospenomegaly Extremity Exam: Negative: Clubbing, Cyanosis, Edema Skin Exam: Positive: Other skin issue (skin extremely dry, flaky) Neuro Exam: Positive: Normal Speech, Normal Tone Psych Exam: Positive: Anxiety, Oriented x 3 Assessment /Plan Assessment Patient is a 64 year old female with PMH of DVT and Pulmonary embolism on coumadin, End stage COPD with chronic hypoxic respiratory failure, nicotine dependence, T2DM, CHF, HTN, HLD, EDWINA untreated, Venous stasis ulcers, GERD, obesity admitted to the ICU with a diagnosis of Acute Metabolic Encephalopathy and COPD Exacerbation with Acute on chronic respiratory failure with hypercabia and hypoxia. Patient was brought to the ED for altered mental status, tremors of the body and suspicion of stroke. Family reported that the patient stayed up late last night watching TV. She was fine all day yesterday and was last seen at baseline by daughter at 0130 am on 10/27/19. Later this morning at 9:30 am when woke up found her sitting at the dining table however she was acting bizarrely - she tried to drink from her nebulizer liquid bottle and was talking in a sing song child like voice for example. They also noticed some shaking movement of her body. Family thought she may have had a stroke and promptly got her to the ED. In the [facility] ED she was 'unresponsive to verbal stimuli. 'Work up In the ED showed Acute on chronic respiratory failure with hypercarbia and hypoxia. she was started on BIPAP and was admitted for COPD exacerbation with acute on chronic respiratory failure with hypoxia and hypercarbia. 2 hour ABG showed some improvement. Later on in the ED she had become very agitated and violent and received 2 doses of Haldol. She was noticed to have increased generalized tremors and myoclonic jerks and had a witnessed seizure at 3:56pm which last about 40 secs. She also had a rectal temp then of 101.6. Patient was given a dose of 1 mg ativan and loaded with 1000 mg of Keppra. Repeat ABG at 4:20 pm showed improvement of her pC2 from 82 to 56 however she continued to be severely acidotic with ph of 7.17 with a drop in bicarb which was now mostly metabolic acidosis. As patient had normal renal function it was felt that she may be having lactic acidosis after the Seizure. She was given a bolus of fluid. Repeat lactate showed elevation from 1.6 on admission to 4.2. With her fever and seizures and encephalopathy there is concern for Encephalitis/ meningitis so she was started on empiric antibiotics and acyclovir. Neurology was consulted. Lumber puncture could not be done immediately as patient is on coumadin and has an INR of 1.8. Acute on Chronic respiratory failure with hypoxia and hypercarbia improved. Now at baseline chronic hypoxic and hypercarbic respiratory failure consulted pulmonary. Off BIPAP continue nebs. Fever with Seizures with mental status change CT negative for any acute event. Patient refused MRI . She is very clautrophobic. Will get a repeat CT head. ? Encephalitis/Menigitis/ medication related. Patient may have taken wrong medications at home accidentally . However daughter says she counted all her pills and everything was accounted for. She does nto have access to any one else's medication bottles. Daughter did say that she was sitting at the dining table with the nebulizer solution bottle in her hand trying to squirt it into her mouth. LP could not be done as patient on Coumadin and INR at 1.8 . Now INR has normalized. will see if we can get the LP done today by Anesthesia will cover with ceftriaxone, vanco, ampicillin and acyclovir Manny , ELEANOR. consulted Neurology Blood culture1/2 bottles bacillus sp. Skin commensal. Severe metabolic acidosis with respiratory acidosis patient may have seizure at home with respiratory compromise leading to severe respiratory acidosis. Seizur in the ED again caused the lactic acidosis which lead to the metabolic acidosis. received IVF. Patient has h/o CHF so will have to watch for fluid overload. Acute metabolic encephalopathy due to hypercarbia and Seizures, R/O [employer] infection sitter if needed. she did receive 2 doses of haldol with some response. COPD Exacerbation this is probably secondary to seizures causing acute respiratory compromise she improved too rapidly for a severe COPD exacerbation. pulmonary consult Continue nebs. will not give any steroids. CHF, Diastolic: does not appear volume overloaded on exam will restart spironolactone. Will give lasix as needed. T2DM: insulin per sliding scale if needed. FS q6h will aim for blood glucose off 150 to 180 Do not give insulin if FS below 150. HTN: restart metoprolol, and losartan at lower dose. HLD: hold PO med at this time EDWINA: untreated as she is severely claustrophobic. GERD pantoprazole History of DVT and [place] on chronic Warfarin therapy will hold coumadin as pending LP. give vit k. After Lp will start on lovenox and coumadin bridging. Plan/VTE VTE Prophylaxis Ordered?: Yes VS, I&O, 24H, Fishbone Vital Signs/I&O Vital Signs Date Time Temp Pulse Resp B/P (MAP) Pulse Ox O2 Delivery O2 Flow Rate FiO2 10/30/19 08:01 97.9 63 20 150/68 (95) 91 Nasal Cannula 3.0 10/28/19 09:00 45 I&O- Last 24 Hours up to 6 AM 10/30/19 06:00 Intake Total 1460 ml Output Total 2025 ml Balance -565 ml Laboratory Data 24H LABS Laboratory Tests 2 10/29/19 12:02: Bedside Glucose (Misc Panel) 161H 10/29/19 18:03: Prothrombin Time 16.0H, Prothromb Time International Ratio 1.31, Activated Partial Thromboplast Time 31.5 10/29/19 18:08: Bedside Glucose (Misc Panel) 93 10/29/19 23:47: Bedside Glucose (Misc Panel) 129H 10/30/19 04:49: Immature Granulocyte % (Auto) 0.3, Neutrophils (%) (Auto) 69.7H, Lymphocytes (%) (Auto) 15.8L, Monocytes (%) (Auto) 10.0H, Eosinophils (%) (Auto) 3.3H, Basophils (%) (Auto) 0.9, Neutrophils # (Auto) 4.6, Lymphocytes # (Auto) 1.0L, Monocytes # (Auto) 0.7, Eosinophils # (Auto) 0.2, Basophils # (Auto) 0.1, Nucleated Red Blood Cells % (auto) 0.0, Anion Gap 6L, Glomerular Filtration Rate > 60.0, Calcium Level 9.3 10/30/19 08:10: Prothrombin Time 14.2H, Prothromb Time International Ratio 1.13, Activated Part ial Thromboplast Time 31.6 CBC/BMP Laboratory Tests 10/30/19 04:49 Microbiology Microbiology 10/29/19 Blood Culture - Preliminary, Resulted No growth after 24 hours . All specim... 10/27/19 Blood Culture - Preliminary, Resulted No Growth after 48 hours. All Specime... 10/27/19 Respiratory Virus Panel (PCR) (JOSE A) - Final, Complete 10/27/19 Blood Culture - Final, Complete Bacillus Sp., Not Anthracis TEETEE ADAN MD Oct 30, 2019 10:29
[2019-10-30] MEDS: cefTRIAXone SOD 2 GM in D5W MINI-BAG PLUS 50 ML IV SCH ×2 (10:58→21:25)
[2019-10-30 12:55] LABS: APPEARANCE, CSF CLEAR (CLEAR); COLOR, CSF COLORLESS (COLORLESS); CSF TUBE# CELL CNT TUBE 4
[2019-10-30 12:59] LABS: CSF TUBE# GLU TUBE 1; CSF TUBE# TP TUBE 1; GLUCOSE CSF 102 MG/DL (40-75); TOTAL PROTEIN,CSF 59 MG/DL (15-45)
[2019-10-30] MEDS: ACETAMINOPHEN 325 MG/10.15 ML UDC PO PRN (14:49)
[2019-10-30] MEDS: RAMELTEON 8 MG TAB (ROZEREM) PO SCH (21:28)
[2019-10-31] MEDS: IPRATROPIUM 0.02% SOLN 0.5MG/2.5 ML NEB INH SCH ×4 (00:59→20:54)
[2019-10-31] MEDS: ACYCLOVIR 1,000 MG in D5W 250 ML IV SCH ×2 (01:13→10:21)
[2019-10-31] MEDS: hydrALAZINE INJ 20 MG/ML VIAL IV SCH ×4 (01:13→18:00)
[2019-10-31 04:00] VITALS: BP 131/61
[2019-10-31] MEDS: SODIUM CHLORIDE 0.9% INJ 10 ML SYR IV SCH ×2 (04:59→17:31)
[2019-10-31 05:28] LABS: BASO % 0.6 % (0.0-1.0); EOS # 0.4 10^3/uL (0.0-0.5); EOS % 4.9 % (0.0-3.0); HEMATOCRIT 34.6 % (36.0-47.0); HEMOGLOBIN 11.1 g/dl (12.0-15.5); LYMPH # 1.1 10^3/uL (1.5-5.0); LYMPH % 15.5 % (24.0-44.0); MEAN CORPUSCULAR HEMOGLOBIN 28.9 pg (27.0-33.0); MEAN CORPUSCULAR HGB CONC 32.1 g/dl (32.0-36.5); MEAN CORPUSCULAR VOLUME 90.1 fl (80.0-96.0); MONO # 0.6 10^3/uL (0.0-0.8); MONO % 8.1 % (0.0-5.0); NEUTROPHILS # 5.1 10^3/uL (1.5-8.5); NEUTROPHILS % 70.6 % (36.0-66.0); PLATELET COUNT, AUTOMATED 218 10^3/uL (150-450); RED BLOOD COUNT 3.84 10^6/uL (4.00-5.40); WHITE BLOOD COUNT 7.2 10^3/uL (4.0-10.0)
[2019-10-31 05:46] LABS: BLOOD UREA NITROGEN 7 MG/DL (7-18); CALCIUM LEVEL 9.1 MG/DL (8.8-10.2); CARBON DIOXIDE LEVEL 33 MEQ/L (21-32); CHLORIDE LEVEL 99 MEQ/L (98-107); CREATININE FOR GFR 0.56 MG/DL (0.55-1.30); GLOMERULAR FILTRATION RATE > 60.0 (>45); GLUCOSE, FASTING 122 MG/DL (70-100); POTASSIUM SERUM 3.1 MEQ/L (3.5-5.1); SODIUM LEVEL 138 MEQ/L (136-145)
[2019-10-31] MEDS: HumaLOG INSULIN (NovoLOG) PER UNIT SC SCH ×5 (06:00→20:43)
[2019-10-31] MEDS: BUDESONIDE 0.5 MG/2 ML INHALATION SUSPENSION INH SCH ×2 (07:28→20:54)
[2019-10-31] MEDS: FORMOTEROL FUMARATE 20 MCG/2 ML INHALATION SOLUTION (PERFOROMIST) INH SCH ×2 (07:28→20:53)
[2019-10-31 08:00] VITALS: BP 134/62
[2019-10-31] MEDS: LOSARTAN 50 MG TAB PO SCH ×2 (09:06→21:20)
[2019-10-31] MEDS: SPIRONOLACTONE 25 MG TAB PO SCH (09:06)
[2019-10-31] MEDS: levETIRAcetam 250MG TABLET (KEPPRA) PO SCH ×2 (09:06→21:19)
[2019-10-31] MEDS: HEPARIN SOD (PORCINE) 5000 UNITS/ML VIAL SC SCH (09:07)
[2019-10-31] MEDS: PANTOPRAZOLE 40MG INJ (PROTONIX) (C9113) IV SCH (09:07)
[2019-10-31] MEDS: METOPROLOL TART 50 MG TAB PO SCH ×2 (09:07→21:20)
[2019-10-31] MEDS: cefTRIAXone SOD 2 GM in D5W MINI-BAG PLUS 50 ML IV SCH ×2 (09:07→21:20)
--- NOTE | 2019-10-31 09:11 | IPNPDOC ---
Subjective Date Seen The patient was seen on 10/31/19. Subjective Chief Complaint/HPI Does continue to have mild delirium at night . Says cannot sleep at night. Denies SOB, denies any cough. denies any headache. No fever or chills. Objective Physical Examination General Exam: Positive: Alert, Cooperative, No Acute Distress, Other Eye Exam: Positive: PERRLA, Conjunctiva & lids normal, EOMI; Negative: Sclera icteric ENT Exam: Positive: Atraumatic, Mucous membr. moist/pink, Pharynx Normal Neck Exam: Positive: Supple Chest Exam: Positive: Clear to auscultation, Diminished Heart Exam: Positive: Rate Normal, Regular Rhythm, Normal S1, Normal S2; Negative: Murmurs, Rubs Telemetry: Positive: No significant arrhythmia Abdomen Exam: Positive: Normal bowel sounds, Soft; Negative: Tenderness, Hepatospenomegaly Extremity Exam: Negative: Clubbing, Cyanosis, Edema Skin Exam: Positive: Other skin issue (skin extremely dry, flaky) Neuro Exam: Positive: Normal Speech, Normal Tone Psych Exam: Positive: Anxiety, Oriented x 3 Assessment /Plan Assessment Patient is a 64 year old female with PMH of DVT and Pulmonary embolism on coumadin, End stage COPD with chronic hypoxic respiratory failure, nicotine dependence, T2DM, CHF, HTN, HLD, EDWINA untreated, Venous stasis ulcers, GERD, obesity admitted to the ICU with a diagnosis of Acute Metabolic Encephalopathy and COPD Exacerbation with Acute on chronic respiratory failure with hypercabia and hypoxia. Patient was brought to the ED for altered mental status, tremors of the body and suspicion of stroke. Family reported that the patient stayed up late last night watching TV. She was fine all day yesterday and was last seen at baseline by daughter at 0130 am on 10/27/19. Later this morning at 9:30 am when woke up found her sitting at the dining table however she was acting bizarrely - she tried to drink from her nebulizer liquid bottle and was talking in a sing song child like voice for example. They also noticed some shaking movement of her body. Family thought she may have had a stroke and promptly got her to the ED. In the [facility] ED she was 'unresponsive to verbal stimuli. 'Work up In the ED showed Acute on chronic respiratory failure with hypercarbia and hypoxia. she was started on BIPAP and was admitted for COPD exacerbation with acute on chronic respiratory failure with hypoxia and hypercarbia. 2 hour ABG showed some improvement. Later on in the ED she had become very agitated and violent and received 2 doses of Haldol. She was noticed to have increased generalized tremors and myoclonic jerks and had a witnessed seizure at 3:56pm which last about 40 secs. She also had a rectal temp then of 101.6. Patient was given a dose of 1 mg ativan and loaded with 1000 mg of Keppra. Repeat ABG at 4:20 pm showed improvement of her pC2 from 82 to 56 however she continued to be severely acidotic with ph of 7.17 with a drop in bicarb which was now mostly metabolic acidosis. As patient had normal renal function it was felt that she may be having lactic acidosis after the Seizure. She was given a bolus of fluid. Repeat lactate showed elevation from 1.6 on admission to 4.2. With her fever and seizures and encephalopathy there is concern for Encephalitis/ meningitis so she was started on empiric antibiotics and acyclovir. Neurology was consulted. Lumber puncture could not be done immediately as patient is on coumadin and has an INR of 1.8. Acute on Chronic respiratory failure with hypoxia and hypercarbia improved. Now at baseline chronic hypoxic and hypercarbic respiratory failure consulted pulmonary. Off BIPAP continue nebs. Fever with Seizures with mental status change CT negative for any acute event. Patient refused MRI . She is very clautrophobic. Will get a repeat CT head. ? Encephalitis/Menigitis/ medication related. Patient may have taken wrong medications at home accidentally . However daughter says she counted all her pills and everything was accounted for. She does not have access to any one [employer] medication bottles. Daughter did say that she was sitting at the dining table with the nebulizer solution bottle in her hand trying to squirt it into her mouth. LP only 2 cells but this was after several days of antibiotics, protein was slightly elevated to 59. Viral pcr and gram statin was negative. will finish course of ceftriaxone and acyclovir. Dced vancomycin and ampicillin. Keppra , EEG. Neurology consult appreciated. Blood culture 1/3 bottles bacillus sp. Skin commensal. Severe metabolic acidosis with respiratory acidosis patient may have seizure at home with respiratory compromise leading to severe respiratory acidosis. Seizur in the ED again caused the lactic acidosis which lead to the metabolic acidosis. received IVF. Patient has h/o CHF so will have to watch for fluid overload. Acute metabolic encephalopathy due to hypercarbia and Seizures, R/O [employer] infection now resolved COPD Exacerbation this is probably secondary to seizures causing acute respiratory compromise she improved too rapidly for a severe COPD exacerbation. pulmonary consult Continue nebs. will not give any steroids. CHF, Diastolic: does not appear volume overloaded on exam will restart spironolactone. Will give lasix as needed. T2DM: insulin per sliding scale if needed. FS q6h will aim for blood glucose off 150 to 180 Do not give insulin if FS below 150. HTN: restart metoprolol, and losartan at lower dose. HLD: hold PO med at this time EDWINA: untreated as she is severely claustrophobic. GERD pantoprazole History of DVT and [place] on chronic Warfarin therapy will start on lovenox and coumadin bridging. Plan/VTE VTE Prophylaxis Ordered?: Yes VS, I&O, 24H, Fishbone Vital Signs/I&O Vital Signs Date Time Temp Pulse Resp B/P (MAP) Pulse Ox O2 Delivery O2 Flow Rate FiO2 10/31/19 06:23 160/66 10/31/19 04:00 96.9 68 16 92 Nasal Cannula 3.0 10/28/19 09:00 45 I&O- Last 24 Hours up to 6 AM 10/31/19 06:00 Intake Total 1330 ml Output Total 700 ml Balance 630 ml Laboratory Data 24H LABS Laboratory Tests 2 10/30/19 11:39: Bedside Glucose (Misc Panel) 258H 10/30/19 12:19: CSF Appearance CLEAR, CSF Color COLORLESS, CSF WBC (Auto) 1, CSF RBC (Auto) < 2, CSF Glucose (Tube 1) TUBE 1, CSF Total Protein (Tube 1) TUBE 1, CSF Cell Count Tube # TUBE 4, CSF Polynuclear WBCs (%) , CSF Glucose 102H, CSF Total Protein 59H 10/30/19 17:38: Bedside Glucose (Misc Panel) 129H 10/30/19 23:50: Bedside Glucose (Misc Panel) 159H 10/31/19 04:57: Immature Granulocyte % (Auto) 0.3, Neutrophils (%) (Auto) 70.6H, Lymphocytes (%) (Auto) 15.5L, Monocytes (%) (Auto) 8.1H, Eosinophils (%) (Auto) 4.9H, Basophils (%) (Auto) 0.6, Neutrophils # (Auto) 5.1, Lymphocytes # (Auto) 1.1L, Monocytes # (Auto) 0.6, Eosinophils # (Auto) 0.4, Basophils # (Auto) 0.0, Nucleated Red Blood Cells % (auto) 0.0, Anion Gap 6L, Glomerular Filtration Rate > 60.0, Calcium Level 9.1 10/31/19 06:14: Bedside Glucose (Misc Panel) 117H CBC/BMP Laboratory Tests 10/31/19 04:57 Microbiology Microbiology 10/30/19 Fungal Smear, Received Pending 10/30/19 Fungal Culture, Received Pending 10/30/19 Viral Culture, Received Pending 10/30/19 Gram Stain - Final, Resulted 10/30/19 CSF Culture, Resulted Pending 10/30/19 - Final, Complete 10/29/19 Blood Culture - Preliminary, Resulted No Growth after 48 hours. All Specime... 10/27/19 Blood Culture - Preliminary, Resulted No Growth after 72 hours. All specime... 10/27/19 Respiratory Virus Panel (PCR) (JOSE A) - Final, Complete 10/27/19 Blood Culture - Final, Complete Bacillus Sp., Not Anthracis TEETEE ADAN MD Oct 31, 2019 09:11
[2019-10-31 10:35] LABS: MAGNESIUM LEVEL 1.1 MG/DL (1.8-2.4)
[2019-10-31] MEDS ORDERED: POTASSIUM CHLORIDE 10 MEQ SR TABLET PO ONE (11:00)
[2019-10-31] MEDS: MAG SULF 1GM/100ML (MAG RUN) 1 GM in IV 1 EA IV SCH ×2 (11:05→12:56)
[2019-10-31] MEDS: MAGNESIUM OXIDE 400 MG TAB (MAG-OX) PO SCH ×2 (11:05→21:20)
[2019-10-31 12:00] VITALS: BP 145/68
[2019-10-31 16:00] VITALS: BP 159/70
[2019-10-31] MEDS: WARFARIN SOD 7.5 MG TAB PO SCH (17:30)
[2019-10-31] MEDS: ACETAMINOPHEN 325 MG/10.15 ML UDC PO PRN (17:30)
[2019-10-31 20:00] VITALS: BP 164/58
[2019-10-31] MEDS: RAMELTEON 8 MG TAB (ROZEREM) PO SCH (21:19)
[2019-10-31] MEDS: ENOXAPARIN 80 MG/0.8 ML SYRINGE (J1650) SC SCH (21:19)
[2019-10-31 23:59] VITALS: BP 150/70
[2019-11-01] MEDS: hydrALAZINE INJ 20 MG/ML VIAL IV SCH ×4 (00:35→19:00)
[2019-11-01] MEDS: IPRATROPIUM 0.02% SOLN 0.5MG/2.5 ML NEB INH SCH ×4 (02:00→20:00)
[2019-11-01 04:00] VITALS: BP 153/69
[2019-11-01] MEDS: SODIUM CHLORIDE 0.9% INJ 10 ML SYR IV SCH ×2 (05:33→18:08)
[2019-11-01 06:06] LABS: BASO # 0.1 10^3/uL (0.0-0.2); BASO % 0.9 % (0.0-1.0); EOS # 0.4 10^3/uL (0.0-0.5); EOS % 5.3 % (0.0-3.0); HEMATOCRIT 35.4 % (36.0-47.0); HEMOGLOBIN 11.1 g/dl (12.0-15.5); LYMPH # 1.1 10^3/uL (1.5-5.0); LYMPH % 15.6 % (24.0-44.0); MEAN CORPUSCULAR HEMOGLOBIN 29.2 pg (27.0-33.0); MEAN CORPUSCULAR HGB CONC 31.4 g/dl (32.0-36.5); MEAN CORPUSCULAR VOLUME 93.2 fl (80.0-96.0); MONO # 0.7 10^3/uL (0.0-0.8); MONO % 10.3 % (0.0-5.0); NEUTROPHILS # 4.6 10^3/uL (1.5-8.5); NEUTROPHILS % 67.6 % (36.0-66.0); PLATELET COUNT, AUTOMATED 239 10^3/uL (150-450); WHITE BLOOD COUNT 6.7 10^3/uL (4.0-10.0)
[2019-11-01 06:19] LABS: INR 1.14; PROTHROMBIN TIME 14.4 SECONDS (11.8-14.0)
[2019-11-01 06:23] LABS: BLOOD UREA NITROGEN 12 MG/DL (7-18); CALCIUM LEVEL 9.5 MG/DL (8.8-10.2); CARBON DIOXIDE LEVEL 34 MEQ/L (21-32); CHLORIDE LEVEL 101 MEQ/L (98-107); GLOMERULAR FILTRATION RATE > 60.0 (>45); GLUCOSE, FASTING 104 MG/DL (70-100); POTASSIUM SERUM 3.9 MEQ/L (3.5-5.1); SODIUM LEVEL 140 MEQ/L (136-145)
[2019-11-01] MEDS: HumaLOG INSULIN (NovoLOG) PER UNIT SC SCH ×4 (07:54→19:57)
[2019-11-01 08:00] VITALS: BP 155/67
[2019-11-01 08:29] LABS: MAGNESIUM LEVEL 1.8 MG/DL (1.8-2.4)
[2019-11-01] MEDS: BUDESONIDE 0.5 MG/2 ML INHALATION SUSPENSION INH SCH ×2 (08:43→20:25)
[2019-11-01] MEDS: FORMOTEROL FUMARATE 20 MCG/2 ML INHALATION SOLUTION (PERFOROMIST) INH SCH ×2 (08:43→20:25)
[2019-11-01] MEDS: PANTOPRAZOLE 40MG INJ (PROTONIX) (C9113) IV SCH (09:49)
[2019-11-01] MEDS: ENOXAPARIN 80 MG/0.8 ML SYRINGE (J1650) SC SCH ×2 (09:50→20:01)
[2019-11-01] MEDS: LOSARTAN 50 MG TAB PO SCH ×2 (09:50→20:03)
[2019-11-01] MEDS: cefTRIAXone SOD 2 GM in D5W MINI-BAG PLUS 50 ML IV SCH (09:50)
[2019-11-01] MEDS: SPIRONOLACTONE 25 MG TAB PO SCH (09:50)
[2019-11-01] MEDS: MAGNESIUM OXIDE 400 MG TAB (MAG-OX) PO SCH ×2 (09:51→20:02)
[2019-11-01] MEDS: METOPROLOL TART 50 MG TAB PO SCH ×2 (09:51→20:02)
[2019-11-01] MEDS: levETIRAcetam 250MG TABLET (KEPPRA) PO SCH ×2 (09:51→20:01)
--- NOTE | 2019-11-01 11:17 | IPNPDOC ---
Subjective Date Seen The patient was seen on 11/01/19. Subjective Chief Complaint/HPI feels well wants to go back home today. Says her breathing is at baseline. She continues to smoke though says has cut back Objective Physical Examination General Exam: Positive: Alert, Cooperative, No Acute Distress, Other Eye Exam: Positive: PERRLA, Conjunctiva & lids normal, EOMI; Negative: Sclera icteric ENT Exam: Positive: Atraumatic, Mucous membr. moist/pink, Pharynx Normal Neck Exam: Positive: Supple Chest Exam: Positive: Rhonchi, Wheezing, Diminished Heart Exam: Positive: Rate Normal, Regular Rhythm, Normal S1, Normal S2; Negative: Murmurs, Rubs Telemetry: Positive: No significant arrhythmia Abdomen Exam: Positive: Normal bowel sounds, Soft; Negative: Tenderness, Hepatospenomegaly Extremity Exam: Negative: Clubbing, Cyanosis, Edema Skin Exam: Positive: Other skin issue (skin extremely dry, flaky) Neuro Exam: Positive: Normal Speech, Normal Tone Psych Exam: Positive: Anxiety, Oriented x 3 Assessment /Plan Assessment Patient is a 64 year old female with PMH of DVT and Pulmonary embolism on coum lenadra, End stage COPD with chronic hypoxic respiratory failure, nicotine dependence, T2DM, CHF, HTN, HLD, EDWINA untreated, Venous stasis ulcers, GERD, obesity admitted to the ICU with a diagnosis of Acute Metabolic Encephalopathy and COPD Exacerbation with Acute on chronic respiratory failure with hypercabia and hypoxia. Patient was brought to the ED for altered mental status, tremors of the body and suspicion of stroke. Family reported that the patient stayed up late last night watching TV. She was fine all day yesterday and was last seen at baseline by daughter at 0130 am on 10/27/19. Later this morning at 9:30 am when woke up found her sitting at the dining table however she was acting bizarrely - she tried to drink from her nebulizer liquid bottle and was talking in a sing song child like voice for example. They also noticed some shaking movement of her body. Family thought she may have had a stroke and promptly got her to the ED. In the [facility] ED she was 'unresponsive to verbal stimuli. 'Work up In the ED showed Acute on chronic respiratory failure with hypercarbia and hypoxia. she was started on BIPAP and was admitted for COPD exacerbation with acute on chronic respiratory failure with hypoxia and hypercarbia. 2 hour ABG showed some improvement. Later on in the ED she had become very agitated and violent and received 2 doses of Haldol. She was noticed to have increased generalized tremors and myoclonic jerks and had a witnessed seizure at 3:56pm which last about 40 secs. She also had a rectal temp then of 101.6. Patient was given a dose of 1 mg ativan and loaded with 1000 mg of Keppra. Repeat ABG at 4:20 pm showed improvement of her pC2 from 82 to 56 however she continued to be severely acidotic with ph of 7.17 with a drop in bicarb which was now mostly metabolic acidosis. As patient had normal renal function it was felt that she may be having lactic acidosis after the Seizure. She was given a bolus of fluid. Repeat lactate showed elevation from 1.6 on admission to 4.2. With her fever and seizures and encephalopathy there is concern for Encephalitis / meningitis so she was started on empiric antibiotics and acyclovir. Neurology was consulted. Lumber puncture could not be done immediately as patient is on coumadin and has an INR of 1.8. Acute on Chronic respiratory failure with hypoxia and hypercarbia improved. Now at baseline chronic hypoxic and hypercarbic respiratory failure consulted pulmonary. Off BIPAP continue nebs. Fever with Seizures with mental status change CT negative for any acute event. Patient refused MRI . She is very clautrophobic. Will get a repeat CT head. ? Encephalitis/Menigitis/ medication related. Patient may have taken wrong medications at home accidentally . However daughter says she counted all her pills and everything was accounted for. She does not have access to any one else's medication bottles. Daughter did say that she was sitting at the dining table with the nebulizer solution bottle in her hand trying to squirt it into her mouth. LP only 2 cells but this was after several days of antibiotics, protein was slightly elevated to 59. Viral pcr and gram statin was negative. will finished 5 day course of ceftriaxone. Dced vancomycin and ampicillin and acyclovir Keppra , EEG. Neurology consult appreciated. Blood culture 1/3 bottles bacillus sp. Skin commensal. Seizures unknown etiology Menigitis/ encephalitis PCr was negative. CSF study negative except for slightly elevated protein. could have been severe hypoxia and hypercarbia causing the seizure or a drug drug interaction or drug adverse effect. She is on mirtazepine and citalopram at home which both have adverse effect of seizure though less than 1%. Also both causes twitching and myoclonic jerks, tremors. Both there were discontinued in hospital and pateint and daughter note that she is not shaking any more. Patient does take quite a number of medications which can cause excessive sedation and daughter does mention that she sleeps most of the day Severe metabolic acidosis with respiratory acidosis patient may have seizure at home with respiratory compromise leading to severe respiratory acidosis. Seizur in the ED again caused the lactic acidosis which lead to the metabolic acidosis. received IVF. Patient has h/o CHF so will have to watch for fluid overload. Acute metabolic encephalopathy due to hypercarbia and Seizures, R/O [employer] infection now resolved COPD Exacerbation this is probably secondary to seizures causing acute respiratory compromise she improved too rapidly for a severe COPD exacerbation. pulmonary consult Continue nebs. will not give any steroids. CHF, Diastolic: does not appear volume overloaded on exam will restart spironolactone. Will give lasix as needed. T2DM: insulin per sliding scale if needed. FS q6h will aim for blood glucose off 150 to 180 Do not give insulin if FS below 150. HTN: restart metoprolol, and losartan at lower dose. HLD: hold PO med at this time EDWINA: untreated as she is severely claustrophobic. GERD pantoprazole History of DVT and [place] on chronic Warfarin therapy will start on lovenox and coumadin bridging. Plan/VTE VTE Prophylaxis Ordered?: Yes VS, I&O, 24H, Fishbone Vital Signs/I&O Vital Signs Date Time Temp Pulse Resp B/P (MAP) Pulse Ox O2 Delivery O2 Flow Rate FiO2 11/01/19 08:30 4.0 11/01/19 08:00 96.6 69 16 155/67 (96) 95 Nasal Cannula 10/28/19 09:00 45 I&O- Last 24 Hours up to 6 AM 11/01/19 06:00 Intake Total 880 ml Output Total 1000 ml Balance -120 ml Laboratory Data 24H LABS Laboratory Tests 2 10/31/19 11:42: Bedside Glucose (Misc Panel) 217H 10/31/19 17:13: Bedside Glucose (Misc Panel) 102 10/31/19 20:38: Bedside Glucose (Misc Panel) 140H 11/01/19 05:31: Immature Granulocyte % (Auto) 0.3, Neutrophils (%) (Auto) 67.6H, Lymphocytes (%) (Auto) 15.6L, Monocytes (%) (Auto) 10.3H, Eosinophils (%) (Auto) 5.3H, Basophils (%) (Auto) 0.9, Neutrophils # (Auto) 4.6, Lymphocytes # (Auto) 1.1L, Monocytes # (Auto) 0.7, Eosinophils # (Auto) 0.4, Basophils # (Auto) 0.1, Nucleated Red Blood Cells % (auto) 0.0, Prothrombin Time 14.4H, Prothromb Time International Ratio 1.14, Anion Gap 5L, Glomerular Filtration Rate > 60.0, Calcium Level 9.5, Magnesium Level 1.8 CBC/BMP Laboratory Tests 11/01/19 05:31 Microbiology Microbiology 10/30/19 Fungal Smear, Received Pending 10/30/19 Fungal Culture, Received Pending 10/30/19 Viral Culture, Received Pending 10/30/19 Gram Stain - Final, Complete 10/30/19 CSF Culture - Final, Complete 10/30/19 - Final, Complete 10/29/19 Blood Culture - Preliminary, Resulted No Growth after 72 hours. All specime... 10/27/19 Blood Culture - Preliminary, Resulted No Growth after 72 hours. All specime... 10/27/19 Respiratory Virus Panel (PCR) (JOSE A) - Final, Complete 10/27/19 Blood Culture - Final, Complete Bacillus Sp., Not Anthracis TEETEE ADAN MD Nov 01, 2019 11:17
[2019-11-01 12:00] VITALS: BP 164/62
[2019-11-01] MEDS ORDERED: KEPP1TAB PO (15:01)
[2019-11-01] MEDS ORDERED: LOVE0.6I2 SC (15:01)
[2019-11-01 16:00] VITALS: BP 160/62
[2019-11-01] MEDS: WARFARIN SOD 7.5 MG TAB PO SCH (18:04)
[2019-11-01] MEDS: ACETAMINOPHEN TAB 650MG DOSE (2X325MG) PO PRN (18:04)
[2019-11-01 20:00] VITALS: BP 164/54
[2019-11-01] MEDS: RAMELTEON 8 MG TAB (ROZEREM) PO SCH (20:02)
[2019-11-01 23:59] VITALS: BP 142/70
[2019-11-02] MEDS: hydrALAZINE INJ 20 MG/ML VIAL IV SCH ×2 (00:24→08:00)
[2019-11-02] MEDS: IPRATROPIUM 0.02% SOLN 0.5MG/2.5 ML NEB INH SCH ×2 (02:00→07:26)
[2019-11-02 04:00] VITALS: BP 160/70
[2019-11-02] MEDS: SODIUM CHLORIDE 0.9% INJ 10 ML SYR IV SCH (05:19)
[2019-11-02 05:52] LABS: BASO # 0.1 10^3/uL (0.0-0.2); BASO % 0.9 % (0.0-1.0); EOS # 0.4 10^3/uL (0.0-0.5); EOS % 6.1 % (0.0-3.0); HEMATOCRIT 33.5 % (36.0-47.0); HEMOGLOBIN 10.2 g/dl (12.0-15.5); LYMPH # 1.5 10^3/uL (1.5-5.0); LYMPH % 25.1 % (24.0-44.0); MEAN CORPUSCULAR HEMOGLOBIN 28.7 pg (27.0-33.0); MEAN CORPUSCULAR HGB CONC 30.4 g/dl (32.0-36.5); MEAN CORPUSCULAR VOLUME 94.4 fl (80.0-96.0); MONO # 0.6 10^3/uL (0.0-0.8); MONO % 9.7 % (0.0-5.0); NEUTROPHILS # 3.3 10^3/uL (1.5-8.5); NEUTROPHILS % 57.9 % (36.0-66.0); PLATELET COUNT, AUTOMATED 245 10^3/uL (150-450); RED BLOOD COUNT 3.55 10^6/uL (4.00-5.40); WHITE BLOOD COUNT 5.8 10^3/uL (4.0-10.0)
[2019-11-02 06:04] LABS: INR 1.11; PROTHROMBIN TIME 14.1 SECONDS (11.8-14.0)
[2019-11-02 06:09] LABS: BLOOD UREA NITROGEN 13 MG/DL (7-18); CALCIUM LEVEL 9.5 MG/DL (8.8-10.2); CARBON DIOXIDE LEVEL 33 MEQ/L (21-32); CHLORIDE LEVEL 104 MEQ/L (98-107); GLOMERULAR FILTRATION RATE > 60.0 (>45); GLUCOSE, FASTING 130 MG/DL (70-100); POTASSIUM SERUM 4.2 MEQ/L (3.5-5.1); SODIUM LEVEL 140 MEQ/L (136-145)
[2019-11-02] MEDS: FORMOTEROL FUMARATE 20 MCG/2 ML INHALATION SOLUTION (PERFOROMIST) INH SCH (07:26)
[2019-11-02] MEDS: BUDESONIDE 0.5 MG/2 ML INHALATION SUSPENSION INH SCH (07:26)
[2019-11-02] MEDS: HumaLOG INSULIN (NovoLOG) PER UNIT SC SCH (07:30)
[2019-11-02 08:00] VITALS: BP 110/60
[2019-11-02] MEDS: MAGNESIUM OXIDE 400 MG TAB (MAG-OX) PO SCH (08:32)
[2019-11-02] MEDS: LOSARTAN 50 MG TAB PO SCH (08:32)
[2019-11-02] MEDS: PANTOPRAZOLE 40MG INJ (PROTONIX) (C9113) IV SCH (08:32)
[2019-11-02] MEDS: SPIRONOLACTONE 25 MG TAB PO SCH (08:32)
[2019-11-02 08:33] VITALS: BP 110/60
[2019-11-02] MEDS: levETIRAcetam 250MG TABLET (KEPPRA) PO SCH (08:33)
[2019-11-02] MEDS: METOPROLOL TART 50 MG TAB PO SCH (08:33)
[2019-11-02] MEDS: ENOXAPARIN 80 MG/0.8 ML SYRINGE (J1650) SC SCH (08:33)
[2019-11-02] MEDS: ACETAMINOPHEN TAB 650MG DOSE (2X325MG) PO PRN (08:33)
[2019-11-02] MEDS ORDERED: HYDR-3911 PO (11:05)
--- NOTE | 2019-11-22 11:28 | DS.PDOC ---
Discharge Summary General Date of Admission Oct 27, 2019 at 13:56 Date of Discharge 11/02/19 Discharge Summary PROCEDURES PERFORMED DURING STAY: Lumber Puncture DISCHARGE DIAGNOSES: Acute on Chronic respiratory failure with hypoxia and hypercarbia. Metabolic Encephalopathy Seizures Severe metabolic acidosis and respiratory acidosis. Lacticacidosis Possible Encephalitis COPD exacerbation SECONDARY DIAGNOSIS: DVT and Pulmonary embolism on coumadin, End stage COPD with chronic hypoxic respiratory failure, nicotine dependence, T2DM, Diastolic CHF, HTN, HLD, EDWINA untreated, Venous stasis ulcers, GERD, obesity COMPLICATIONS/CHIEF COMPLAINT: Copd Exacerbation. HISTORY OF PRESENT ILLNESS: See History and physical HOSPITAL COURSE: Patient is a 64 year old female with PMH of DVT and Pulmonary embolism on coumadin, End stage COPD with chronic hypoxic respiratory failure, nicotine dependence, T2DM, CHF, HTN, HLD, EDWINA untreated, Venous stasis ulcers, GERD, obesity admitted to the ICU with a diagnosis of Acute Metabolic Encephalopathy and COPD Exacerbation with Acute on chronic respiratory failure with hypercabia and hypoxia. Patient was brought to the ED for altered mental status, tremors of the body and suspicion of stroke. Family reported that the patient stayed up late last night watching TV. She was fine all day yesterday and was last seen at baseline by daughter at 0130 am on 10/27/19. Later this morning at 9:30 am when woke up found her sitting at the dining table however she was acting bizarrely - she tried to drink from her nebulizer liquid bottle and was talking in a sing song child like voice for example. They also noticed some shaking movement of her body. Family thought she may have had a stroke and promptly got her to the ED. In the [facility] ED she was 'unresponsive to verbal stimuli. 'Work up In the ED showed Acute on chronic respiratory failure with hypercarbia and hypoxia. she was started on BIPAP and was admitted for COPD exacerbation with acute on chronic respiratory failure with hypoxia and hypercarbia. 2 hour ABG showed some improvement. Later on in the ED she had become very agitated and violent and received 2 doses of Haldol. She was noticed to have increased generalized tremors and myoclonic jerks and had a witnessed seizure at 3:56pm which last about 40 secs. She also h ad a rectal temp then of 101.6. Patient was given a dose of 1 mg ativan and loaded with 1000 mg of Keppra. Repeat ABG at 4:20 pm showed improvement of her pC2 from 82 to 56 however she continued to be severely acidotic with ph of 7.17 with a drop in bicarb which was now mostly metabolic acidosis. As patient had normal renal function it was felt that she may be having lactic acidosis after the Seizure. She was given a bolus of fluid. Repeat lactate showed elevation from 1.6 on admission to 4.2. With her fever and seizures and encephalopathy there is concern for Encephalitis/ meningitis so she was started on empiric antibiotics and acyclovir. Neurology was consulted. Lumber puncture could not be done immediately as patient is on coumadin and has an INR of 1.8. Acute on Chronic respiratory failure with hypoxia and hypercarbia improved. Now at baseline chronic hypoxic and hypercarbic respiratory failure needing BIPAP support. Off BIPAP continue nebs and inhalers as per home Fever with Seizures with mental status change CT negative for any acute event. Patient refused MRI . She is very clautrophobic. Repeat CT head was negative. ? Encephalitis/Menigitis/ medication related. Daughter did say that she was sitting at the dining table with the nebulizer solution bottle in her hand trying to squirt it into her mouth. LP only 2 cells but this was after several days of antibiotics, protein was slightly elevated to 59. Viral pcr and gram statin was negative. will finished 5 day course of ceftriaxone. [place] , EEG. Neurology consult appreciated. Blood culture 1/3 bottles bacillus sp. Skin commensal. Seizures and myoclonic jerks etiology probably severe hypoxia and hypercarbia or drug interaction. Meningitis/ encephalitis PCr was negative. CSF study negative except for slightly elevated protein. could have been severe hypoxia and hypercarbia causing the seizure or a drug drug interaction or drug adverse effect. She is on mirtazepine and citalopram at home which both have adverse effect of seizure though less than 1%. Also both causes twitching and myoclonic jerks, tremors. Both there were discontinued in hospital and patient and daughter note that she is not shaking any more. Patient does take quite a number of medications which can cause excessive sedation and daughter does mention that she sleeps most of the day. will continue on keppra. EEG was done and negative. Severe metabolic acidosis with respiratory acidosis patient may have seizure at home with respiratory compromise leading to severe respiratory acidosis. Seizur in the ED again caused the lactic acidosis which lead to the metabolic acidosis. Patient has h/o CHF so will have to watch for fluid overload. Acute metabolic encephalopathy due to hypercarbia and Seizures, R/O [employer] infection now resolved COPD Exacerbation this is probably secondary to seizures causing acute respiratory compromise she improved too rapidly for a severe COPD exacerbation. pulmonary consult Continue nebs. will not give any steroids. CHF, Diastolic: does not appear volume overloaded on exam continue spironolactone and loasix T2DM: continue metformin and glipizide. HTN restart metoprolol, and losartan at lower dose. HLD restart home meds EDWINA: untreated as she is severely claustrophobic. GERD pantoprazole History of DVT and PE on chronic Warfarin therapy on lovenox and coumadin bridging. DISCHARGE MEDICATIONS: Please see below. ALLERGIES: Please see below. PHYSICAL EXAMINATION ON DISCHARGE: VITAL SIGNS: Please see below. General Exam: Positive: Alert, Cooperative, No Acute Distress, Other Eye Exam: Positive: PERRLA, Conjunctiva & lids normal, EOMI; Negative: Sclera icteric ENT Exam: Positive: Atraumatic, Mucous membr. moist/pink, Pharynx Normal Neck Exam: Positive: Supple Chest Exam: Positive: Rhonchi, Wheezing, Diminished Heart Exam: Positive: Rate Normal, Regular Rhythm, Normal S1, Normal S2; Negative: Murmurs, Rubs Telemetry: Positive: No significant arrhythmia Abdomen Exam: Positive: Normal bowel sounds, Soft; Negative: Tenderness, Hepatospenomegaly Extremity Exam: Negative: Clubbing, Cyanosis, Edema Skin Exam: Positive: Other skin issue (skin extremely dry, flaky) Neuro Exam: Positive: Normal Speech, Normal Tone Psych Exam: Positive: Anxiety, Oriented x 3 LABORATORY DATA: Please see below. ACTIVITY: [As tolerated]. DIET: Carb consistent. DISPOSITION: Home, Self-Care. DISCHARGE INSTRUCTIONS: Follow up PMD in 1 week INR check on 11/04/19 DISCHARGE CONDITION: [Stable]. TIME SPENT ON DISCHARGE: 40 minutes. Vital Signs/I&Os Vital Signs Label Value Date Time Patient Temperature 97.5 degrees F 11/02/19 0800 Temperature Source Temporal 11/02/19799 Pulse 60 11/02/19 08 Respiratory Rate 22 bpm 11/02/19799 Bedside Pulse Oximetry 92 % 11/02/19799 Item Value Date Time Oxygen Flow Rate 4.0 L/min 11/02/19 0800 Laboratory Data CBC/BMP Item Value Date Time Hepatitis A IgM Antibody NEGATIVE 10/27/19 1345 Hepatitis B Surface Antigen NEGATIVE 10/27/19 1345 Hepatitis B Core IgM Antibody NEGATIVE 10/27/19 1345 Hepatitis C Antibody Index 0.2 INDEX 10/27/19 1345 HIV (1&2) Antibody NEGATIVE 10/27/19 1345 HIV P24 Antigen NEGATIVE 10/27/19 1345 Item Value Date Time CSF Appearance CLEAR 10/30/19 1219 CSF Color COLORLESS 10/30/19 1219 CSF WBC (Auto) 1 /uL 10/30/19 1219 CSF RBC (Auto) < 2 10^3/uL 10/30/19 1219 CSF Glucose (Tube 1) TUBE 1 10/30/19 1219 CSF Total Protein (Tube 1) TUBE 1 10/30/19 1219 CSF Cell Count Tube # TUBE 4 10/30/19 1219 CSF Polynuclear WBCs (%) % 10/30/19 1219 CSF Glucose 102 MG/DL H 10/30/19 1219 CSF Total Protein 59 MG/DL H 10/30/19 1219 Item Value Date Time Blood Gas Bicarbonate Standard 17.4 MEQ/L L 10/27/19 1611 Arterial Blood pH 7.172 UNITS *L 10/27/19 1611 Arterial Blood Partial Pressure CO2 56.3 mmHg H 10/27/19 1611 Arterial Blood Partial Pressure O2 91.5 mmHg 10/27/19 1611 Arterial Blood HCO3 20.2 MEQ/L L 10/27/19 1611 Arterial Blood Total CO2 21.9 MEQ/L L 10/27/19 1611 Arterial Blood Oxygen Saturation 94.9 % L 10/27/19 1611 Arterial Blood Base Excess -8.8 L 10/27/19 1611 Blood Gas Bicarbonate Standard 33.9 MEQ/L H 10/29/19 0618 Arterial Blood pH 7.413 UNITS 10/29/1918 Arterial Blood Partial Pressure CO2 59.3 mmHg H 10/29/1918 Arterial Blood Partial Pressure O2 61.1 mmHg L 10/29/1918 Arterial Blood HCO3 37.0 MEQ/L H 10/29/1918 Arterial Blood Total CO2 38.8 MEQ/L H 10/29/1918 Arterial Blood Oxygen Saturation 91.1 % L 10/29/1918 Arterial Blood Base Excess 10.3 H 10/29/1918 Item Value Date Time White Blood Count 5.8 10^3/uL 11/02/19 0509 Red Blood Count 3.55 10^6/uL L 11/02/19 0509 Hemoglobin 10.2 g/dl L 11/02/19 050 Hematocrit 33.5 % L 11/02/19508 Mean Corpuscular Volume 94.4 fl 11/02/19 050 Mean Corpuscular Hemoglobin 28.7 pg 11/02/19508 Mean Corpuscular Hemoglobin Concent 30.4 g/dl L 11/02/19508 Red Cell Distribution Width 15.3 % H 11/02/19 050 Platelet Count 245 10^3/uL 11/02/19 0509 Immature Granulocyte % (Auto) 0.3 % 11/02/19 050 Neutrophils (%) (Auto) 57.9 % 11/02/19 050 Lymphocytes (%) (Auto) 25.1 % 11/02/19 050 Monocytes (%) (Auto) 9.7 % H 11/02/19 050 Eosinophils (%) (Auto) 6.1 % H 11/02/19 050 Basophils (%) (Auto) 0.9 % 11/02/19 050 Neutrophils # (Auto) 3.3 10^3/uL 11/02/19 0509 Lymphocytes # (Auto) 1.5 10^3/uL 11/02/19 0509 Monocytes # (Auto) 0.6 10^3/uL 11/02/19 0509 Eosinophils # (Auto) 0.4 10^3/uL 11/02/19 0509 Basophils # (Auto) 0.1 10^3/uL 11/02/19 0509 Nucleated Red Blood Cells % (auto) 0.0 % 11/02/19 050 Sodium Level 140 MEQ/L 11/02/19 050 Potassium Level 4.2 MEQ/L 11/02/19 050 Chloride Level 104 MEQ/L 11/02/19 0509 Carbon Dioxide Level 33 MEQ/L H 11/02/19 050 Anion Gap 3 MEQ/L L 11/02/19 050 Blood Urea Nitrogen 13 MG/DL 11/02/19 050 Creatinine 0.70 MG/DL 11/02/19 0509 Glomerular Filtration Rate > 60.0 11/02/19508 Fasting Glucose 130 MG/DL H 11/02/19508 Calcium Level 9.5 MG/DL 11/02/19 050 Discharge Medications Scheduled Dexlansoprazole (Dexilant) 60 Mg Cap, 60 MG PO DAILY, (Reported) Diphenhydramine HCl (Benadryl) 25 Mg Cap, 50 MG PO QHS, (Reported) Enoxaparin Sodium (Lovenox) 80 Mg/0.8 Ml Syringe, 80 MG SC Q12H Fluticasone/Vilanterol (Breo Ellipta 100-25 Mcg INH) 1 Inh Inh, 1 PUFF INH DAILY, (Reported) Furosemide (Furosemide) 40 Mg Tablet, 40 MG PO DAILY, (Reported) Glipizide (Glipizide) 10 Mg Tab, 10 MG PO DAILY, (Reported) Hydralazine HCl (Hydralazine HCl) 50 Mg Tablet, 50 MG PO TID Hold if SBP < 170 Levetiracetam (Keppra) 500 Mg Tablet, 1 TAB PO BID Losartan Potassium (Losartan Potassium) 50 Mg Tablet, 50 MG PO BID, (Reported) Magnesium Chloride (Mag64) 64 Mg Tablet.dr, 64 MG PO DAILY, (Reported) Metformin HCl (Metformin HCl) 500 Mg Tab, 500 MG PO BID, (Reported) Metoprolol Tartrate (Metoprolol Tartrate) 50 Mg Tablet, 50 MG PO BID, (Reported) Multivitamin (Tab-A-Nancy) 1 Tab Tab, 1 TAB PO DAILY, (Reported) Simvastatin (Simvastatin) 20 Mg Tab, 20 MG PO QHS, (Reported) Spironolactone (Spironolactone) 25 Mg Tablet, 25 MG PO DAILY, (Reported) Warfarin Sodium (Warfarin Sodium) 5 Mg Tablet, 5 MG PO 5XW, (Reported) MON/WED/FRI/SAT/SUN AT 1700 Warfarin Sodium (Warfarin Sodium) 7.5 Mg Tablet, 7.5 MG PO 2XW, (Reported) THU/ AT 1700 Scheduled PRN Acetaminophen (Acetaminophen) 500 Mg Tab, 1,000 MG PO Q6H PRN for PAIN, (Rep orted) Ipratropium/Albuterol Sulfate (Iprat-Albut 0.5-3(2.5) mg/3 ml) 1 Yoni Yoni, 1 YONI INH Q4H PRN for SHORTNESS OF BREATH, (Reported) Nitroglycerin (Nitrostat) 0.4 Mg Subl, 0.4 MG SL NITRO PRN for CHEST PAIN, (Reported) Allergies Coded Allergies: latex (Verified Allergy, Unknown, 04/04/19) bupropion (Verified Adverse Reaction, Severe, violent, 04/04/19) erythromycin base (Verified Adverse Reaction, Intermediate, vomiting, 04/04/19) TEETEE ADAN MD Nov 22, 2019 11:28
== END 2019-11-02 12:34 | disposition home or self-care (01) | DRG 70 ==
LOC: M ED 11:04 → EDBD 11:04 → M ED INP 13:56 → M ICU 17:03 → M PCU 10-28 21:05
PROVIDERS: ADMIT Internal Medicine Nephrology; ATTEND Internal Medicine Nephrology
PROC: 02HV33Z Insertion of Infusion Device into Superior Vena Cava, Percutaneous Approach (ICD-10-PCS; principal; 2019-10-28 16:30)
DX: G93.41 Metabolic encephalopathy (principal); J96.21 Acute and chronic respiratory failure with hypoxia; J96.22 Acute and chronic respiratory failure with hypercapnia; G04.90 Encephalitis and encephalomyelitis, unspecified; E87.4 Mixed disorder of acid-base balance; J44.1 Chronic obstructive pulmonary disease with (acute) exacerbation; I50.32 Chronic diastolic (congestive) heart failure; R56.9 Unspecified convulsions; E11.9 Type 2 diabetes mellitus without complications; I11.0 Hypertensive heart disease with heart failure; K21.9 Gastro-esophageal reflux disease without esophagitis; E66.9 Obesity, unspecified; Z79.01 Long term (current) use of anticoagulants; F17.200 Nicotine dependence, unspecified, uncomplicated; G47.33 Obstructive sleep apnea (adult) (pediatric); Z86.711 Personal history of pulmonary embolism; Z86.718 Personal history of other venous thrombosis and embolism; Z79.899 Other long term (current) drug therapy; Z91.040 Latex allergy status; Z88.8 Allergy status to other drugs, medicaments and biological substances; I27.20 Pulmonary hypertension, unspecified; E78.5 Hyperlipidemia, unspecified

== ENCOUNTER 2020-01-02 20:50 | Emergency (ER) | payer MEDICARE, MEDICAID ==
[~2020-01-02] VITALS: Ht 152.4 cm; Wt 86.4 kg
[~2020-01-02 20:50] MED LIST changes: +KEPP1TAB PO; +LOVE0.6I2 SC; +METO50TA7 PO
--- NOTE | 2020-01-02 21:17 | REPVR ---
PROCEDURE INFORMATION: Exam: CT Head Without Contrast Exam date and time: 01/02/2020 9:03 PM Age: 64 years old Clinical indication: Altered mental status/memory loss; Additional info: AMS since 2029 today TECHNIQUE: Imaging protocol: Computed tomography of the head without contrast. Radiation optimization: All CT scans at this facility use at least one of these dose optimization techniques: automated exposure control; mA and/or kV adjustment per patient size (includes targeted exams where dose is matched to clinical indication); or iterative reconstruction. Other technique: STROKE PROTOCOL was implemented. COMPARISON: CT Head without contrast 10/27/2019 11:30 AM FINDINGS: Brain: There is no acute cortical infarction, intracranial hemorrhage or mass. Ventricles: The ventricles appear enlarged, but not out of proportion to the degree of parenchymal volume loss. Bones/joints: Unremarkable. No acute fracture. Sinuses: Visualized sinuses are unremarkable. No fluid levels. Mastoid air cells: Visualized mastoid air cells are well aerated. Soft tissues: Unremarkable. IMPRESSION: No acute cortical infarction or intracranial hemorrhage. ASSESSMENT: ASPECTS ([place] Stroke Program Early CT Score) is 10. Electronically signed by: Desirae Varghese On 01/02/2020 21:17:26 PM
--- NOTE | 2020-01-02 21:43 | ECGEPIP ---
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
[2020-01-02] MEDS ORDERED: methylPREDNISolone INJ 125 MG/2 ML VIAL (J2930) IV ONE (22:00)
[2020-01-02 22:12] LABS: BASO # 0.1 10^3/uL (0.0-0.2); BASO % 0.7 % (0.0-1.0); EOS # 0.1 10^3/uL (0.0-0.5); EOS % 1.8 % (0.0-3.0); HEMATOCRIT 41.3 % (36.0-47.0); HEMOGLOBIN 13.2 g/dl (12.0-15.5); LYMPH # 1.4 10^3/uL (1.5-5.0); LYMPH % 19.4 % (24.0-44.0); MEAN CORPUSCULAR HEMOGLOBIN 29.3 pg (27.0-33.0); MEAN CORPUSCULAR VOLUME 91.6 fl (80.0-96.0); MONO # 0.5 10^3/uL (0.0-0.8); MONO % 6.7 % (0.0-5.0); NEUTROPHILS % 71.1 % (36.0-66.0); PLATELET COUNT, AUTOMATED 279 10^3/uL (150-450); RED BLOOD COUNT 4.51 10^6/uL (4.00-5.40); WHITE BLOOD COUNT 7.1 10^3/uL (4.0-10.0)
[2020-01-02] MEDS: IPRATROPIUM 0.5MG/ALBUTEROL 2.5MG INH SOL UD 3ML (DUONEB)(J7620) NEB SCH ×2 (22:14→22:20)
[2020-01-02 22:53] LABS: ALBUMIN 3.7 GM/DL (3.2-5.2); ALT/SGPT 24 U/L (12-78); BILIRUBIN,DIRECT 0.1 MG/DL (0.0-0.2); BILIRUBIN,TOTAL 0.3 MG/DL (0.2-1.0); BLOOD UREA NITROGEN 14 MG/DL (7-18); CALCIUM LEVEL 9.5 MG/DL (8.8-10.2); CARBON DIOXIDE LEVEL 32 MEQ/L (21-32); CHLORIDE LEVEL 101 MEQ/L (98-107); CK-MB VALUE MASS 1.1 NG/ML (<3.6); CPK CREATINE PHOSPHOKINASE 51 U/L (26-192); CREATININE FOR GFR 0.78 MG/DL (0.55-1.30); GLOMERULAR FILTRATION RATE > 60.0 (>45); GLUCOSE, FASTING 169 MG/DL (70-100); MB/CK RELATIVE INDEX 2.16 (< OR =4); POTASSIUM SERUM 4.4 MEQ/L (3.5-5.1); SODIUM LEVEL 138 MEQ/L (136-145); TOTAL PROTEIN 8.2 GM/DL (6.4-8.2); TROPONIN I < 0.02 NG/ML (< 0.10)
[2020-01-03] VITALS: BP 124/58
[2020-01-03] MEDS ORDERED: PRED20TA PO (00:46)
--- NOTE | 2020-01-03 07:28 | REP ---
Portable chest, and 01:00 p.m., single AP view with the patient upright: Comparison is 10/27/2019. There is increased density inferiorly in the right lung as an interval change. Remainder the lung brito are clear. Cardiac size is normal. The yasmeen, mediastinum, skeletal structures are unremarkable. The patient is rotated. Impression: Increased density inferiorly in the right lung. Electronically Signed by Oh Blunt MD 01/03/2020 07:19 A
--- NOTE | 2020-01-03 16:21 | ED PDOC ---
Post-Departure Follow-Up dr house faxed formal report of cxr for fu Andi Schwab MD Jan 03, 2020 16:21
== END 2020-01-03 01:01 | disposition home or self-care (01) ==
LOC: M ED 20:50
DX: J44.0 Chronic obstructive pulmonary disease with (acute) lower respiratory infection (principal); E11.9 Type 2 diabetes mellitus without complications; I10 Essential (primary) hypertension; Z99.81 Dependence on supplemental oxygen; F17.210 Nicotine dependence, cigarettes, uncomplicated; Z88.1 Allergy status to other antibiotic agents; Z88.8 Allergy status to other drugs, medicaments and biological substances; Z91.040 Latex allergy status; Z79.899 Other long term (current) drug therapy; Z79.84 Long term (current) use of oral hypoglycemic drugs; Z79.01 Long term (current) use of anticoagulants
CPT/HCPCS: 36600; 70450; 71045; 80047; 80048; 80076; 82550; 82553; 82803; 83605; 84443; 84484; 85025; 87486; 87581; 87633; 87798; 93005; 93041; 94640; 96374; 99285; J2930

== ENCOUNTER → 2020-05-16 | Outpatient (CLI) | payer OTHER, MEDICAID ==
[~2020-05-16] MED LIST changes: -TAB-TAB PO; +TAB-TAB2 PO
--- NOTE | 2020-05-16 16:07 | REP ---
CAROTID ULTRASOUND: Real-time ultrasound evaluation and duplex Doppler interrogation of the extracranial carotid vasculature is performed. There is mild to moderate plaquing and narrowing in both carotid bulbs extending into the internal and external carotid arteries. Luminal narrowing is less than 50%. There is no evidence of hemodynamically significant stenosis of either internal carotid artery. Normal flow velocities are seen. The vertebral arteries demonstrate normal direction of flow. RIGHT LEFT Peak systolic velocity ICA 98 cm/s 102.4 cm/s End diastolic velocity ICA 17.9 cm/s 29.0 cm/s Peak systolic velocity CCA 62.2 cm/s 64.5 cm/s Peak systolic velocity ECA 102 cm/s 122.7 cm/s ICA/CCA ratio 1.58 1.59 IMPRESSION: Bilateral luminal narrowing of the internal carotid arteries less than 50%. No evidence of hemodynamically significant stenosis. Electronically Signed by Oh Teresa MD 05/16/2020 03:59 P
== END ==
LOC: M RAD 14:30
PROVIDERS: ATTEND Physician Assistant
DX: I65.23 Occlusion and stenosis of bilateral carotid arteries (principal)

== ENCOUNTER → 2020-10-19 | Outpatient (CLI) | payer OTHER, MEDICAID ==
[~2020-10-19] MED LIST changes: +MIRT-60 PO; -REME30TA PO
[2020-10-19 15:17] LABS: HEMATOCRIT 40.1 % (36.0-47.0); MEAN CORPUSCULAR HEMOGLOBIN 27.1 pg (27.0-33.0); MEAN CORPUSCULAR HGB CONC 29.9 g/dl (32.0-36.5); MEAN CORPUSCULAR VOLUME 90.7 fl (80.0-96.0); PLATELET COUNT, AUTOMATED 399 10^3/uL (150-450); RED BLOOD COUNT 4.42 10^6/uL (4.00-5.40)
[2020-10-19 15:44] LABS: ALBUMIN 3.3 GM/DL (3.2-5.2); ALT/SGPT 22 U/L (12-78); BILIRUBIN,TOTAL 0.2 MG/DL (0.2-1.0); BLOOD UREA NITROGEN 11 MG/DL (7-18); CALCIUM LEVEL 9.1 MG/DL (8.8-10.2); CARBON DIOXIDE LEVEL 30 MEQ/L (21-32); CHLORIDE LEVEL 104 MEQ/L (98-107); CHOLESTEROL LEVEL 157 MG/DL (<200); GLOMERULAR FILTRATION RATE > 60.0 (>45); GLUCOSE, FASTING 112 MG/DL (70-100); HDL CHOLESTEROL 47 MG/DL (>40); LDL CHOLESTEROL 80 MG/DL (<100); MAGNESIUM LEVEL 1.5 MG/DL (1.8-2.4); NON-HDL-C 110 MG/DL; POTASSIUM SERUM 5.4 MEQ/L (3.5-5.1); SODIUM LEVEL 136 MEQ/L (136-145); TOTAL PROTEIN 7.5 GM/DL (6.4-8.2); TRIGLYCERIDES LEVEL 149 MG/DL (<150)
== END ==
LOC: M LAB 14:43
PROVIDERS: ATTEND Family Medicine
DX: E61.2 Magnesium deficiency (principal); E11.9 Type 2 diabetes mellitus without complications

== ENCOUNTER → 2020-12-17 | Outpatient (CLI) | payer OTHER, MEDICAID ==
[~2020-12-17] MED LIST changes: -LISI-542 PO; +LISI-898 PO; +LISI10TA22 PO; -LISI10TA4 PO
--- NOTE | 2020-12-18 09:07 | REP ---
INDICATION: NICOTINE DEPENDENCE COMPARISON: 10/03/2019 TECHNIQUE: Axial noncontrast images from the thoracic inlet to the upper abdomen using low-dose lung screening technique (LDCT). FINDINGS: There is a new 6.6 mm noncalcified nodule within the lingula (series 201; image 57). Remainder lung brito are relatively clear/stable with minimal chronic changes again noted. IMPRESSION: Lung-RADS category 3. Six month low-dose CT follow-up evaluation is recommended. <Electronically signed by Baltazar Jaeger > 12/18/20 0903
== END ==
LOC: M RAD 12:54
PROVIDERS: ATTEND Physician Assistant
DX: Z12.2 Encounter for screening for malignant neoplasm of respiratory organs (principal); F17.218 Nicotine dependence, cigarettes, with other nicotine-induced disorders

== ENCOUNTER 2021-01-03 11:50 | Emergency (ER) | payer OTHER, MEDICAID ==
[~2021-01-03] VITALS: Ht 152.4 cm; Wt 93.6 kg
--- OUTSIDE RECORDS SUMMARY | 2021-01-03 13:02 | CCD ---
Author Author [facility] Organization [facility] Address Unknown Phone Unavailable Care Team Providers Care Wrapper Rewinder Name Role Phone Mack, L Keraa RPA Unavailable Unavailable Mack, L Keara RPA Unavailable Unavailable Mack, L Keara RPA Unavailable Unavailable Mack, L Keara RPA Unavailable Unavailable Mack, L Keara RPA Unavailable Unavailable Mack, L Keara RPA Unavailable Unavailable Mack, L Keara RPA Unavailable Unavailable Mack, L Keara RPA Unavailable Unavailable Mack, L Keara RPA Unavailable Unavailable Mack, L Keara RPA Unavailable Unavailable Mack, L Keara RPA Unavailable Unavailable Mack, L Keara RPA Unavailable Unavailable Mack, L Keara RPA Unavailable Unavailable Mack, L Keara RPA Unavailable Unavailable Mack, L Keara RPA Unavailable Unavailable Mack, L Keara RPA Unavailable Unavailable Mack, L Keara RPA Unavailable Unavailable Mack, L Keara RPA Unavailable Unavailable Mack, L Keara RPA Unavailable Unavailable Mack, L Keara RPA Unavailable Unavailable Mack, L Keara RPA Unavailable Unavailable Mack, L Keara RPA Unavailable Unavailable Mack, L Keara RPA Unavailable Unavailable Mack, L Keara RPA Unavailable Unavailable Mack, L Keara RPA Unavailable Unavailable Mack, L Keara RPA Unavailable Unavailable Mack, L Keara RPA Unavailable Unavailable Mack, L Keara RPA Unavailable Unavailable Mack, L Keara RPA Unavailable Unavailable Mack, L Keara RPA Unavailable Unavailable Mack, L Keara RPA Unavailable Unavailable Mack, L Keara RPA Unavailable Unavailable PADILLA, M JERRI PA Unavailable Unavailable PADILLA, M JERRI PA Unavailable Unavailable PADILLA, M JERRI PA Unavailable Unavailable PADILLA, M JERRI PA Unavailable Unavailable PADILLA, M JERRI PA Unavailable Unavailable PADILLA, M JERRI PA Unavailable Unavailable PADILLA, M JERRI PA Unavailable Unavailable PADILLA, M JERRI PA Unavailable Unavailable PADILLA, M JERRI PA Unavailable Unavailable PADILLA, M JERRI PA Unavailable Unavailable PADILLA, M JERRI PA Unavailable Unavailable PADILLA, M JERRI PA Unavailable Unavailable PADILLA, M JERRI PA Unavailable Unavailable PADILLA, M JERRI PA Unavailable Unavailable PADILLA, M JERRI PA Unavailable Unavailable PADILLA, M JERRI PA Unavailable Unavailable PADILLA, M JERRI PA Unavailable Unavailable PADILLA, M JERRI PA Unavailable Unavailable PADILLA, M JERRI PA Unavailable Unavailable PADILLA, M JERRI PA Unavailable Unavailable PADILLA, M JERRI PA Unavailable Unavailable PADILLA, M JERRI PA Unavailable Unavailable PADILLA, M JERRI PA Unavailable Unavailable PADILLA, M JERRI PA Unavailable Unavailable PADILLA, M JERRI PA Unavailable Unavailable PADILLA, M JERRI PA Unavailable Unavailable PADILLA, M JERRI PA Unavailable Unavailable PADILLA, M JERRI PA Unavailable Unavailable PADILLA, M JERRI PA Unavailable Unavailable PADILLA, M JERRI PA Unavailable Unavailable PADILLA, M JERRI PA Unavailable Unavailable PADILLA, M JERRI PA Unavailable Unavailable PADILLA, M JERRI PA Unavailable Unavailable Re-disclosure Warning The records that you are about to access may contain information from federally-assisted alcohol or drug abuse programs. If such information is present, then the following federally mandated warning applies: This information has been disclosed to you from records protected by federal confidentiality rules (42 CFR part 2). The federal rules prohibit you from making any further disclosure of this information unless further disclosure is expressly permitted by the written consent of the person to whom it pertains or as otherwise permitted by 42 CFR part 2. A general authorization for the release of medical or other information is NOT sufficient for this purpose. The Federal rules restrict any use of the information to criminally investigate or prosecute any alcohol or drug abuse patient.The records that you are about to access may contain highly sensitive health information, the redisclosure of which is protected by Article 27-F of the [facility] Public Health law. If you continue you may have access to information: Regarding HIV / AIDS; Provided by facilities licensed or operated by the [facility] Office of Mental Health; or Provided by the [facility] Office for People With Developmental Disabilities. If such information is present, then the following [facility] mandated warning applies: This information has been disclosed to you from confidential records which are protected by state law. State law prohibits you from making any further disclosure of this information without the specific written consent of the person to whom it pertains, or as otherwise permitted by law. Any unauthorized further disclosure in violation of state law may result in a fine or prison sentence or both. A general authorization for the release of medical or other information is NOT sufficient authorization for further disc losure. Family History Family Member Name Family Member Gender Family Member Status Date o f Status Description Data Source(s) Unknown Unknown Problem [facility] ([facility], ) Encounters Encounter Providers Location Date Indications Data Source(s ) Outpatient Attender: Keara Hardin/Atmore/Buddy/R eindl 05/31/2020 11:30:00 AM EDT [facility] ([facility], ) Outpatient Attender: JERRI Hardin/Atmore/Buddy/Rein dl 05/09/2020 02:00:00 PM EDT [facility] ([facility], ) Outpatient 02/14/2020 02:47:00 PM EDT [facility] Outpatient Attender: JERRI Hardin/Atmore/Buddy/Rein dl 01/30/2020 02:00:00 PM EDT [facility] ([facility] ) Outpatient 01/11/2020 11:28:00 AM EST [facility] Outpatient Attender: JERRI Hardin/Atmore/Buddy/Rein dl 11/30/2019 02:00:00 PM EST [facility] ([facility] Outpatient 11/17/2019 12:04:00 PM EST [facility] Medications Medication Brand Name Start Date Product Form Dose Route Admi nistrative Instructions Pharmacy Instructions Status Indications Reaction Description Data Source(s) 50 mg 12/24/2020 12:00:00 AM EST tablet 60 TAKE ONE TABLET BY MOUTH TWICE A DAY TAKE ONE TABLET BY MOUTH TWICE A DAY SOLD: 12/24/2020 [facility] 5 mg 12/17/2020 12:00:00 AM EST tablet 30 TAKE 1 TABLET BY MOUTH AT BEDTIME NEEDED TAKE 1 TABLET BY MOUTH AT BEDTIME NEEDED SOLD: 12/24/2020 [facility] 60 mg 12/06/2020 12:00:00 AM EST capsule,biphase delayed releas 90 TAKE ONE CAPSULE BY MOUTH EVERY DAY TAKE ONE CAPSULE BY MOUTH EVERY DAY SOLD: 12/13/2020 [facility] 5 mg 12/03/2020 12:00:00 AM EST tablet 60 TAKE 1-2 TABLETS BY MOUTH ONCE DAILY TAKE 1-2 TABLETS BY MOUTH ONCE DAILY SOLD: 12/04/2020 [facility] 5 mg 12/03/2020 12:00:00 AM EST tablet 60 TAKE 1-2 TABLETS BY MOUTH ONCE DAILY TAKE 1-2 TABLETS BY MOUTH ONCE DAILY SOLD: 01/02/2021 [facility] 50 mg 12/01/2020 12:00:00 AM EST tablet 180 TAKE ONE TABLET BY MOUTH WITH FOOD TWICE A DAY TAKE ONE TABLET BY MOUTH WITH FOOD TWICE A DAY SOLD: 0 12/04/2020 [facility] 25 mg 10/29/2020 12:00:00 AM EST tablet 30 TAKE ONE TABLET BY MOUTH EVERY DAY TAKE ONE TABLET BY MOUTH EVERY DAY SOLD: 10/29/2020 [facility] 25 mg 10/29/2020 12:00:00 AM EST tablet 30 TAKE ONE TABLET BY MOUTH EVERY DAY TAKE ONE TABLET BY MOUTH EVERY DAY SOLD: 11/26/2020 [facility] 25 mg 10/29/2020 12:00:00 AM EST tablet 30 TAKE ONE TABLET BY MOUTH EVERY DAY TAKE ONE TABLET BY MOUTH EVERY DAY SOLD: 12/24/2020 [facility] 500 mg 10/19/2020 12:00:00 AM EST tablet 180 TAKE ONE TABLET BY MOUTH TWICE A DAY TAKE ONE TABLET BY MOUTH TWICE A DAY SOLD: 10/21/2020 [facility] DIAPER,BRIEF,ADULT, DISPOSABLE 10/03/2020 12:00:00 AM EST mi sc 56 USE DIRECTED USE DIRECTED SOLD: 11/29/2020 [facility] DIAPER,BRIEF,ADULT, DISPOSABLE 10/03/2020 12:00:00 AM EST mi sc 56 USE DIRECTED USE DIRECTED SOLD: 10/03/2020 [facility] 5 mg 09/22/2020 12:00:00 AM EST tablet 30 TAKE ONE TABLET BY MOUTH EVERY DAY AT BEDTIME NEEDED TAKE ONE TABLET BY MOUTH EVERY DAY AT BEDTIME NEEDE D SOLD: 10/24/2020 [facility] Cyclobenzaprine hydrochloride 5 MG Oral Tablet CYCLOBENZAPRI NE HCL 09/22/2020 12:00:00 AM EST tablet 30 TAKE ONE TABLET BY MOUTH EVERY DAY AT BEDTIME NEEDED TAKE ONE TABLET BY MOUTH EVERY DAY AT BEDTIME NEEDED SOLD : 11/19/2020 [facility] Cyclobenzaprine hydrochloride 5 MG Oral Tablet CYCLOBENZAPRI NE HCL 09/22/2020 12:00:00 AM EST tablet 30 TAKE ONE TABLET BY MOUTH EVERY DAY AT BEDTIME NEEDED TAKE ONE TABLET BY MOUTH EVERY DAY AT BEDTIME NEEDED SOLD : 09/24/2020 [facility] 0.5 mg-3 mg(2.5 mg base)/3 mL 09/18/2020 12:00:0 0 AM EST solution for nebulization 360 INHALE THE CONTENTS OF ONE VIAL VIA NEBULIZER EVERY 6 HOURS INHALE THE CONTENTS OF ONE VIAL VIA NEBULIZER EVERY 6 HOURS SOLD: 09/22/2020 [facility] 20 mg 09/10/2020 12:00:00 AM EST tablet 90 TAKE ONE TABLET BY MOUTH AT BEDTIME TAKE ONE TABLET BY MOUTH AT BEDTIME SOLD: 12/13/2020 [facility] 20 mg 09/10/2020 12:00:00 AM EST tablet 90 TAKE ONE TABLET BY MOUTH AT BEDTIME TAKE ONE TABLET BY MOUTH AT BEDTIME SOLD: 09/10/2020 [facility] 500 mg 08/22/2020 12:00:00 AM EDT tablet 60 TAKE ONE TABLET BY MOUTH TWICE A DAY TAKE ONE TABLET BY MOUTH TWICE A DAY SOLD: 10/26/2020 [facility] 500 mg 08/22/2020 12:00:00 AM EDT tablet 60 TAKE ONE TABLET BY MOUTH TWICE A DAY TAKE ONE TABLET BY MOUTH TWICE A DAY SOLD: 09/24/2020 [facility] 500 mg 08/22/2020 12:00:00 AM EDT tablet 60 TAKE ONE TABLET BY MOUTH TWICE A DAY TAKE ONE TABLET BY MOUTH TWICE A DAY SOLD: 08/24/2020 [facility] 500 mg 08/22/2020 12:00:00 AM EDT tablet 60 TAKE ONE TABLET BY MOUTH TWICE A DAY TAKE ONE TABLET BY MOUTH TWICE A DAY SOLD: 11/19/2020 [facility] 500 mg 08/22/2020 12:00:00 AM EDT tablet 60 TAKE ONE TABLET BY MOUTH TWICE A DAY TAKE ONE TABLET BY MOUTH TWICE A DAY SOLD: 12/24/2020 [facility] 25 mg 08/16/2020 12:00:00 AM EDT tablet 15 TAKE ONE TABLET BY MOUTH EVERY DAY TAKE ONE TABLET BY MOUTH EVERY DAY SOLD: 09/10/2020 [facility] 25 mg 08/16/2020 12:00:00 AM EDT tablet 15 TAKE ONE TABLET BY MOUTH EVERY DAY TAKE ONE TABLET BY MOUTH EVERY DAY SOLD: 08/28/2020 [facility] 25 mg 08/16/2020 12:00:00 AM EDT tablet 15 TAKE ONE TABLET BY MOUTH EVERY DAY TAKE ONE TABLET BY MOUTH EVERY DAY SOLD: 09/24/2020 [facility] 25 mg 08/16/2020 12:00:00 AM EDT tablet 15 TAKE ONE TABLET BY MOUTH EVERY DAY TAKE ONE TABLET BY MOUTH EVERY DAY SOLD: 10/15/2020 [facility] 25 mg 08/16/2020 12:00:00 AM EDT tablet 15 TAKE ONE TABLET BY MOUTH EVERY DAY TAKE ONE TABLET BY MOUTH EVERY DAY SOLD: 08/18/2020 [facility] 60 mg 07/23/2020 12:00:00 AM EDT capsule,delayed release (DR/EC) 30 TAKE ONE CAPSULE BY MOUTH EVERY DAY TAKE ONE CAPSULE BY MOUTH EVERY DAY SOLD: 07/25/2020 [facility] 60 mg 07/23/2020 12:00:00 AM EDT capsule,delayed release (DR/EC) 30 TAKE ONE CAPSULE BY MOUTH EVERY DAY TAKE ONE CAPSULE BY MOUTH EVERY DAY SOLD: 10/21/2020 [facility] 60 mg 07/23/2020 12:00:00 AM EDT capsule,delayed release (DR/EC) 30 TAKE ONE CAPSULE BY MOUTH EVERY DAY TAKE ONE CAPSULE BY MOUTH EVERY DAY SOLD: 08/24/2020 [facility] 60 mg 07/23/2020 12:00:00 AM EDT capsule,delayed release (DR/EC) 30 TAKE ONE CAPSULE BY MOUTH EVERY DAY TAKE ONE CAPSULE BY MOUTH EVERY DAY SOLD: 12/24/2020 [facility] 60 mg 07/23/2020 12:00:00 AM EDT capsule,delayed release (DR/EC) 30 TAKE ONE CAPSULE BY MOUTH EVERY DAY TAKE ONE CAPSULE BY MOUTH EVERY DAY SOLD: 11/19/2020 [facility] 40 mg 07/23/2020 12:00:00 AM EDT tablet 30 TAKE ONE TABLET BY MOUTH EVERY DAY TAKE ONE TABLET BY MOUTH EVERY DAY SOLD: 07/25/2020 [facility] 60 mg 07/23/2020 12:00:00 AM EDT capsule,delayed release (DR/EC) 30 TAKE ONE CAPSULE BY MOUTH EVERY DAY TAKE ONE CAPSULE BY MOUTH EVERY DAY SOLD: 09/22/2020 [facility] 10 mg 07/17/2020 12:00:00 AM EDT tablet 60 TAKE ONE TABLET BY MOUTH TWICE A DAY TAKE ONE TABLET BY MOUTH TWICE A DAY SOLD: 12/04/2020 [facility] 10 mg 07/17/2020 12:00:00 AM EDT tablet 60 TAKE ONE TABLET BY MOUTH TWICE A DAY TAKE ONE TABLET BY MOUTH TWICE A DAY SOLD: 10/02/2020 [facility] 10 mg 07/17/2020 12:00:00 AM EDT tablet 60 TAKE ONE TABLET BY MOUTH TWICE A DAY TAKE ONE TABLET BY MOUTH TWICE A DAY SOLD: 07/19/2020 [facility] 10 mg 07/17/2020 12:00:00 AM EDT tablet 60 TAKE ONE TABLET BY MOUTH TWICE A DAY TAKE ONE TABLET BY MOUTH TWICE A DAY SOLD: 11/05/2020 [facility] 50 mg 06/25/2020 12:00:00 AM EDT tablet 60 TAKE ONE TABLET BY MOUTH TWICE A DAY TAKE ONE TABLET BY MOUTH TWICE A DAY SOLD: 11/26/2020 [facility] 50 mg 06/25/2020 12:00:00 AM EDT tablet 60 TAKE ONE TABLET BY MOUTH TWICE A DAY TAKE ONE TABLET BY MOUTH TWICE A DAY SOLD: 09/24/2020 [facility] 50 mg 06/25/2020 12:00:00 AM EDT tablet 60 TAKE ONE TABLET BY MOUTH TWICE A DAY TAKE ONE TABLET BY MOUTH TWICE A DAY SOLD: 10/26/2020 [facility] 50 mg 06/25/2020 12:00:00 AM EDT tablet 60 TAKE ONE TABLET BY MOUTH TWICE A DAY TAKE ONE TABLET BY MOUTH TWICE A DAY SOLD: 08/28/2020 [facility] Losartan Potassium 50 MG Oral Tablet LOSARTAN POTASSIUM 12:00:00 AM EDT tablet 60 TAKE ONE TABLET BY MOUTH TWI CE A DAY TAKE ONE TABLET BY MOUTH TWICE A DAY SOLD: 07/29/2020 [facility] 50 mg 06/25/2020 12:00:00 AM EDT tablet 60 TAKE ONE TABLET BY MOUTH TWICE A DAY TAKE ONE TABLET BY MOUTH TWICE A DAY SOLD: 06/25/2020 [facility] 60 mg 06/19/2020 12:00:00 AM EDT capsule,biphase delayed releas 90 TAKE ONE CAPSULE BY MOUTH EVERY DAY TAKE ONE CAPSULE BY MOUTH EVERY DAY SOLD: 09/10/2020 [facility] 60 mg 06/19/2020 12:00:00 AM EDT capsule,biphase delayed releas 90 TAKE ONE CAPSULE BY MOUTH EVERY DAY TAKE ONE CAPSULE BY MOUTH EVERY DAY SOLD: 06/19/2020 [facility] Cyclobenzaprine hydrochloride 5 MG Oral Tablet CYCLOBENZAPRI NE HCL 06/18/2020 12:00:00 AM EDT tablet 30 TAKE ONE TABLET BY MOUTH EVERY DAY AT BEDTIME NEEDED TAKE ONE TABLET BY MOUTH EVERY DAY AT BEDTIME NEEDED SOLD : 07/25/2020 [facility] Cyclobenzaprine hydrochloride 5 MG Oral Tablet CYCLOBENZAPRI NE HCL 06/18/2020 12:00:00 AM EDT tablet 30 TAKE ONE TABLET BY MOUTH EVERY DAY AT BEDTIME NEEDED TAKE ONE TABLET BY MOUTH EVERY DAY AT BEDTIME NEEDED SOLD : 06/19/2020 [facility] Cyclobenzaprine hydrochloride 5 MG Oral Tablet CYCLOBENZAPRI NE HCL 06/18/2020 12:00:00 AM EDT tablet 30 TAKE ONE TABLET BY MOUTH EVERY DAY AT BEDTIME NEEDED TAKE ONE TABLET BY MOUTH EVERY DAY AT BEDTIME NEEDED SOLD : 08/28/2020 [facility] 0.4 mg 06/16/2020 12:00:00 AM EDT tablet, sublingual [address] PLACE ONE TABLET UNDER THE TONGUE DIRECTED PLACE ONE TABLET UNDER THE TONGUE DIRECTED SOLD: 06/19/2020 [facility] 50 mg 06/06/2020 12:00:00 AM EDT tablet 180 TAKE ONE TABLET BY MOUTH TWICE A DAY TAKE ONE TABLET BY MOUTH TWICE A DAY SOLD: 09/04/2020 [facility] 50 mg 06/06/2020 12:00:00 AM EDT tablet 180 TAKE ONE TABLET BY MOUTH TWICE A DAY TAKE ONE TABLET BY MOUTH TWICE A DAY SOLD: 06/06/2020 [facility] 64 mg 05/24/2020 12:00:00 AM EDT tablet,delayed release (DR/EC) 30 TAKE ONE TABLET BY MOUTH TWICE A DAY TAKE ONE TABLET BY MOUTH TWICE A DAY SOLD: 06/25/2020 [facility] 64 mg 05/24/2020 12:00:00 AM EDT tablet,delayed release (DR/EC) 30 TAKE ONE TABLET BY MOUTH TWICE A DAY TAKE ONE TABLET BY MOUTH TWICE A DAY SOLD: 05/25/2020 [facility] 64 mg 05/24/2020 12:00:00 AM EDT tablet,delayed release (DR/EC) 30 TAKE ONE TABLET BY MOUTH TWICE A DAY TAKE ONE TABLET BY MOUTH TWICE A DAY SOLD: 06/05/2020 [facility] 25 mg 05/21/2020 12:00:00 AM EDT tablet 15 TAKE ONE TABLET BY MOUTH EVERY DAY TAKE ONE TABLET BY MOUTH EVERY DAY SOLD: 06/25/2020 [facility] 25 mg 05/21/2020 12:00:00 AM EDT tablet 15 TAKE ONE TABLET BY MOUTH EVERY DAY TAKE ONE TABLET BY MOUTH EVERY DAY SOLD: 08/04/2020 [facility] 25 mg 05/21/2020 12:00:00 AM EDT tablet 15 TAKE ONE TABLET BY MOUTH EVERY DAY TAKE ONE TABLET BY MOUTH EVERY DAY SOLD: 06/12/2020 [facility] 25 mg 05/21/2020 12:00:00 AM EDT tablet 15 TAKE ONE TABLET BY MOUTH EVERY DAY TAKE ONE TABLET BY MOUTH EVERY DAY SOLD: 07/09/2020 [facility] 25 mg 05/21/2020 12:00:00 AM EDT tablet 15 TAKE ONE TABLET BY MOUTH EVERY DAY TAKE ONE TABLET BY MOUTH EVERY DAY SOLD: 05/25/2020 [facility] 25 mg 05/21/2020 12:00:00 AM EDT tablet 15 TAKE ONE TABLET BY MOUTH EVERY DAY TAKE ONE TABLET BY MOUTH EVERY DAY SOLD: 07/25/2020 [facility] 500 mg 05/02/2020 12:00:00 AM EDT tablet 180 TAKE ONE TABLET BY MOUTH TWICE A DAY TAKE ONE TABLET BY MOUTH TWICE A DAY SOLD: 05/02/2020 [facility] Metformin hydrochloride 500 MG Oral Tablet METFORMIN HCL 05/02/2020 12:00:00 AM EDT tablet 180 TAKE ONE TABLET BY MOUTH TWI CE A DAY TAKE ONE TABLET BY MOUTH TWICE A DAY SOLD: 07/25/2020 [facility] MULTIVITAMIN 05/01/2020 12:00:00 AM EDT tablet 100 TAKE ONE TABLET BY MOUTH EVERY DAY TAKE ONE TABLET BY MOUTH EVERY DAY SOLD: 05/02/2020 [facility] MULTIVITAMIN 05/01/2020 12:00:00 AM EDT tablet 100 TAKE ONE TABLET BY MOUTH EVERY DAY TAKE ONE TABLET BY MOUTH EVERY DAY SOLD: 08/04/2020 [facility] 5 mg 03/29/2020 12:00:00 AM EDT tablet 30 TAKE ONE TABLET BY MOUTH AT BEDTIME NEEDED TAKE ONE TABLET BY MOUTH AT BEDTIME NEEDED SOLD: [facility] 5 mg 03/29/2020 12:00:00 AM EDT tablet 30 TAKE ONE TABLET BY MOUTH AT BEDTIME NEEDED TAKE ONE TABLET BY MOUTH AT BEDTIME NEEDED SOLD: [facility] 5 mg 03/29/2020 12:00:00 AM EDT tablet 30 TAKE ONE TABLET BY MOUTH AT BEDTIME NEEDED TAKE ONE TABLET BY MOUTH AT BEDTIME NEEDED SOLD: [facility] 20 mg 2020 12:00:00 AM EDT tablet 90 TAKE ONE TABLET BY MOUTH AT BEDTIME ONCE A DAY TAKE ONE TABLET BY MOUTH AT BEDTIME ONCE A DAY SOLD: 06/19/2020 [facility] 20 mg 2020 12:00:00 AM EDT tablet 90 TAKE ONE TABLET BY MOUTH AT BEDTIME ONCE A DAY TAKE ONE TABLET BY MOUTH AT BEDTIME ONCE A DAY SOLD: 2020 [facility] 25 mg 02/29/2020 12:00:00 AM EDT tablet 15 TAKE ONE TABLET BY MOUTH EVERY DAY TAKE ONE TABLET BY MOUTH EVERY DAY SOLD: 02/29/2020 [facility] 25 mg 02/29/2020 12:00:00 AM EDT tablet 15 TAKE ONE TABLET BY MOUTH EVERY DAY TAKE ONE TABLET BY MOUTH EVERY DAY SOLD: 03/29/2020 [facility] 500 mg 02/29/2020 12:00:00 AM EDT tablet 60 TAKE ONE TABLET BY MOUTH TWICE A DAY TAKE ONE TABLET BY MOUTH TWICE A DAY SOLD: 02/29/2020 [facility] 25 mg 02/29/2020 12:00:00 AM EDT tablet 15 TAKE ONE TABLET BY MOUTH EVERY DAY TAKE ONE TABLET BY MOUTH EVERY DAY SOLD: 05/08/2020 [facility] 500 mg 02/29/2020 12:00:00 AM EDT tablet 60 TAKE ONE TABLET BY MOUTH TWICE A DAY TAKE ONE TABLET BY MOUTH TWICE A DAY SOLD: 05/29/2020 [facility] 500 mg 02/29/2020 12:00:00 AM EDT tablet 60 TAKE ONE TABLET BY MOUTH TWICE A DAY TAKE ONE TABLET BY MOUTH TWICE A DAY SOLD: 03/29/2020 [facility] 500 mg 02/29/2020 12:00:00 AM EDT tablet 60 TAKE ONE TABLET BY MOUTH TWICE A DAY TAKE ONE TABLET BY MOUTH TWICE A DAY SOLD: 04/30/2020 [facility] 500 mg 02/29/2020 12:00:00 AM EDT tablet 60 TAKE ONE TABLET BY MOUTH TWICE A DAY TAKE ONE TABLET BY MOUTH TWICE A DAY SOLD: 07/25/2020 [facility] 25 mg 02/29/2020 12:00:00 AM EDT tablet 15 TAKE ONE TABLET BY MOUTH EVERY DAY TAKE ONE TABLET BY MOUTH EVERY DAY SOLD: 04/23/2020 [facility] 25 mg 02/29/2020 12:00:00 AM EDT tablet 15 TAKE ONE TABLET BY MOUTH EVERY DAY TAKE ONE TABLET BY MOUTH EVERY DAY SOLD: 04/10/2020 [facility] 25 mg 02/29/2020 12:00:00 AM EDT tablet 15 TAKE ONE TABLET BY MOUTH EVERY DAY TAKE ONE TABLET BY MOUTH EVERY DAY SOLD: 03/16/2020 [facility] 500 mg 02/29/2020 12:00:00 AM EDT tablet 60 TAKE ONE TABLET BY MOUTH TWICE A DAY TAKE ONE TABLET BY MOUTH TWICE A DAY SOLD: 06/28/2020 [facility] 64 mg 02/11/2020 12:00:00 AM EDT tablet,delayed release (DR/EC) 30 TAKE ONE TABLET BY MOUTH EVERY DAY TAKE ONE TABLET BY MOUTH EVERY DAY SOLD: 03/16/2020 [facility] 64 mg 02/11/2020 12:00:00 AM EDT tablet,delayed release (DR/EC) 30 TAKE ONE TABLET BY MOUTH EVERY DAY TAKE ONE TABLET BY MOUTH EVERY DAY SOLD: 02/13/2020 [facility] 64 mg 02/11/2020 12:00:00 AM EDT tablet,delayed release (DR/EC) 30 TAKE ONE TABLET BY MOUTH EVERY DAY TAKE ONE TABLET BY MOUTH EVERY DAY SOLD: 04/10/2020 [facility] DIAPER,BRIEF,ADULT, DISPOSABLE 02/08/2020 12:00:00 AM EDT mi sc 56 USE DIRECTED USE DIRECTED SOLD: 06/25/2020 [facility] 100-25 mcg/dose 02/08/2020 12:00:00 AM EDT blister with roldan ce 180 INHALE 1 PUFF BY MOUTH ONCE DAILY INHALE 1 PUFF BY MOUTH ONCE DAILY SOLD: 02/10/2020 [facility] DIAPER,BRIEF,ADULT, DISPOSABLE 02/08/2020 12:00:00 AM EDT mi sc 56 USE DIRECTED USE DIRECTED SOLD: 04/27/2020 [facility] DIAPER,BRIEF,ADULT, DISPOSABLE 02/08/2020 12:00:00 AM EDT mi sc 56 USE DIRECTED USE DIRECTED SOLD: 02/10/2020 [facility] 100-25 mcg/dose 02/08/2020 12:00:00 AM EDT blister with roldan ce 180 INHALE 1 PUFF BY MOUTH ONCE DAILY INHALE 1 PUFF BY MOUTH ONCE DAILY SOLD: 05/20/2020 [facility] DIAPER,BRIEF,ADULT, DISPOSABLE 02/08/2020 12:00:00 AM EDT mi sc 56 USE DIRECTED USE DIRECTED SOLD: 08/13/2020 [facility] 60 mg 01/26/2020 12:00:00 AM EDT capsule,delayed release (DR/EC) 30 TAKE ONE CAPSULE BY MOUTH EVERY DAY TAKE ONE CAPSULE BY MOUTH EVERY DAY SOLD: 03/29/2020 [facility] 60 mg 01/26/2020 12:00:00 AM EDT capsule,delayed release (DR/EC) 30 TAKE ONE CAPSULE BY MOUTH EVERY DAY TAKE ONE CAPSULE BY MOUTH EVERY DAY SOLD: 04/30/2020 [facility] 5 mg 01/26/2020 12:00:00 AM EDT tablet 60 TAKE ONE TO TWO TABLETS BY MOUTH EVERY DAY TAKE ONE TO TWO TABLETS BY MOUTH EVERY DAY SOLD: 01/26/2020 [facility] 5 mg 01/26/2020 12:00:00 AM EDT tablet 60 TAKE ONE TO TWO TABLETS BY MOUTH EVERY DAY TAKE ONE TO TWO TABLETS BY MOUTH EVERY DAY SOLD: 07/28/2020 [facility] 5 mg 01/26/2020 12:00:00 AM EDT tablet 60 TAKE ONE TO TWO TABLETS BY MOUTH EVERY DAY TAKE ONE TO TWO TABLETS BY MOUTH EVERY DAY SOLD: 06/28/2020 [facility] 5 mg 01/26/2020 12:00:00 AM EDT tablet 60 TAKE ONE TO TWO TABLETS BY MOUTH EVERY DAY TAKE ONE TO TWO TABLETS BY MOUTH EVERY DAY SOLD: 10/21/2020 [facility] 60 mg 01/26/2020 12:00:00 AM EDT capsule,delayed release (DR/EC) 30 TAKE ONE CAPSULE BY MOUTH EVERY DAY TAKE ONE CAPSULE BY MOUTH EVERY DAY SOLD: 02/29/2020 [facility] 5 mg 01/26/2020 12:00:00 AM EDT tablet 60 TAKE ONE TO TWO TABLETS BY MOUTH EVERY DAY TAKE ONE TO TWO TABLETS BY MOUTH EVERY DAY SOLD: 05/08/2020 [facility] 60 mg 01/26/2020 12:00:00 AM EDT capsule,delayed release (DR/EC) 30 TAKE ONE CAPSULE BY MOUTH EVERY DAY TAKE ONE CAPSULE BY MOUTH EVERY DAY SOLD: 01/26/2020 [facility] 60 mg 01/26/2020 12:00:00 AM EDT capsule,delayed release (DR/EC) 30 TAKE ONE CAPSULE BY MOUTH EVERY DAY TAKE ONE CAPSULE BY MOUTH EVERY DAY SOLD: 05/29/2020 [facility] 60 mg 01/26/2020 12:00:00 AM EDT capsule,delayed release (DR/EC) 30 TAKE ONE CAPSULE BY MOUTH EVERY DAY TAKE ONE CAPSULE BY MOUTH EVERY DAY SOLD: 06/28/2020 [facility] 0.5 mg-3 mg(2.5 mg base)/3 mL 01/26/2020 12:00:0 0 AM EDT solution for nebulization 360 INHALE ONE VIAL VIA NEBULIZER EV UVALDO 6 HOURS NEEDED INHALE ONE VIAL VIA NEBULIZER EVERY 6 HOURS NEEDED SOLD: 04/23/2020 [facility] 0.5 mg-3 mg(2.5 mg base)/3 mL 01/26/2020 12:00:0 0 AM EDT solution for nebulization 360 INHALE ONE VIAL VIA NEBULIZER EV UVALDO 6 HOURS NEEDED INHALE ONE VIAL VIA NEBULIZER EVERY 6 HOURS NEEDED SOLD: 01/26/2020 [facility] 5 mg 01/26/2020 12:00:00 AM EDT tablet 60 TAKE ONE TO TWO TABLETS BY MOUTH EVERY DAY TAKE ONE TO TWO TABLETS BY MOUTH EVERY DAY SOLD: 03/16/2020 [facility] 20 mg 01/03/2020 12:00:00 AM EST tablet 15 TAKE THREE TABLETS BY MOUTH EVERY DAY TAKE THREE TABLETS BY MOUTH EVERY DAY SOLD: 01/03/2020 [facility] Losartan Potassium 50 MG Oral Tablet LOSARTAN POTASSIUM 12:00:00 AM EST tablet 60 TAKE ONE TABLET BY MOUTH TWI CE A DAY TAKE ONE TABLET BY MOUTH TWICE A DAY SOLD: 12/28/2019 [facility] 50 mg 12/26/2019 12:00:00 AM EST tablet 60 TAKE ONE TABLET BY MOUTH TWICE A DAY TAKE ONE TABLET BY MOUTH TWICE A DAY SOLD: 02/29/2020 [facility] 50 mg 12/26/2019 12:00:00 AM EST tablet 60 TAKE ONE TABLET BY MOUTH TWICE A DAY TAKE ONE TABLET BY MOUTH TWICE A DAY SOLD: 01/20/2020 [facility] 50 mg 12/26/2019 12:00:00 AM EST tablet 60 TAKE ONE TABLET BY MOUTH TWICE A DAY TAKE ONE TABLET BY MOUTH TWICE A DAY SOLD: 04/30/2020 [facility] 50 mg 12/26/2019 12:00:00 AM EST tablet 60 TAKE ONE TABLET BY MOUTH TWICE A DAY TAKE ONE TABLET BY MOUTH TWICE A DAY SOLD: 03/29/2020 [facility] 50 mg 12/26/2019 12:00:00 AM EST tablet 60 TAKE ONE TABLET BY MOUTH TWICE A DAY TAKE ONE TABLET BY MOUTH TWICE A DAY SOLD: 05/29/2020 [facility] 60 mg 12/20/2019 12:00:00 AM EST capsule,biphase delayed releas 90 TAKE ONE CAPSULE BY MOUTH EVERY DAY TAKE ONE CAPSULE BY MOUTH EVERY DAY SOLD: 12/21/2019 [facility] 60 mg 12/20/2019 12:00:00 AM EST capsule,biphase delayed releas 90 TAKE ONE CAPSULE BY MOUTH EVERY DAY TAKE ONE CAPSULE BY MOUTH EVERY DAY SOLD: 2020 [facility] 10 mg 12/19/2019 12:00:00 AM EST tablet 60 TAKE ONE TABLET BY MOUTH TWICE A DAY TAKE ONE TABLET BY MOUTH TWICE A DAY SOLD: 06/19/2020 [facility] 10 mg 12/19/2019 12:00:00 AM EST tablet 60 TAKE ONE TABLET BY MOUTH TWICE A DAY TAKE ONE TABLET BY MOUTH TWICE A DAY SOLD: 04/14/2020 [facility] 10 mg 12/19/2019 12:00:00 AM EST tablet 60 TAKE ONE TABLET BY MOUTH TWICE A DAY TAKE ONE TABLET BY MOUTH TWICE A DAY SOLD: 12/21/2019 [facility] 10 mg 12/19/2019 12:00:00 AM EST tablet 60 TAKE ONE TABLET BY MOUTH TWICE A DAY TAKE ONE TABLET BY MOUTH TWICE A DAY SOLD: 05/16/2020 [facility] 10 mg 12/19/2019 12:00:00 AM EST tablet 60 TAKE ONE TABLET BY MOUTH TWICE A DAY TAKE ONE TABLET BY MOUTH TWICE A DAY SOLD: 01/28/2020 [facility] 10 mg 12/19/2019 12:00:00 AM EST tablet 60 TAKE ONE TABLET BY MOUTH TWICE A DAY TAKE ONE TABLET BY MOUTH TWICE A DAY SOLD: 02/29/2020 [facility] 500 mg 11/30/2019 12:00:00 AM EST tablet 60 TAKE ONE TABLET BY MOUTH TWICE A DAY TAKE ONE TABLET BY MOUTH TWICE A DAY SOLD: 12/30/2019 [facility] 500 mg 11/30/2019 12:00:00 AM EST tablet 60 TAKE ONE TABLET BY MOUTH TWICE A DAY TAKE ONE TABLET BY MOUTH TWICE A DAY SOLD: 12/02/2019 [facility] 500 mg 11/30/2019 12:00:00 AM EST tablet 60 TAKE ONE TABLET BY MOUTH TWICE A DAY TAKE ONE TABLET BY MOUTH TWICE A DAY SOLD: 01/28/2020 [facility] 64 mg 11/16/2019 12:00:00 AM EST tablet,delayed release (DR/EC) 30 TAKE ONE TABLET BY MOUTH EVERY DAY TAKE ONE TABLET BY MOUTH EVERY DAY SOLD: 12/12/2019 [facility] 64 mg 11/16/2019 12:00:00 AM EST tablet,delayed release (DR/EC) 30 TAKE ONE TABLET BY MOUTH EVERY DAY TAKE ONE TABLET BY MOUTH EVERY DAY SOLD: 11/16/2019 [facility] 64 mg 11/16/2019 12:00:00 AM EST tablet,delayed release (DR/EC) 30 TAKE ONE TABLET BY MOUTH EVERY DAY TAKE ONE TABLET BY MOUTH EVERY DAY SOLD: 01/13/2020 [facility] 30 mg 11/07/2019 12:00:00 AM EST capsule,delayed release (DR/EC) 30 TAKE ONE CAPSULE BY MOUTH EVERY DAY TAKE ONE CAPSULE BY MOUTH EVERY DAY SOLD: 11/08/2019 [facility] 30 mg 11/07/2019 12:00:00 AM EST capsule,delayed release (DR/EC) 30 TAKE ONE CAPSULE BY MOUTH EVERY DAY TAKE ONE CAPSULE BY MOUTH EVERY DAY SOLD: 12/30/2019 [facility] 30 mg 11/07/2019 12:00:00 AM EST capsule,delayed release (DR/EC) 30 TAKE ONE CAPSULE BY MOUTH EVERY DAY TAKE ONE CAPSULE BY MOUTH EVERY DAY SOLD: 12/02/2019 [facility] MULTIVITAMIN 10/24/2019 12:00:00 AM EST tablet 90 TAKE ONE TABLET BY MOUTH EVERY DAY TAKE ONE TABLET BY MOUTH EVERY DAY SOLD: 01/28/2020 [facility] 50 mg 10/24/2019 12:00:00 AM EST tablet 180 TAKE ONE TABLET BY MOUTH TWICE A DAY WITH FOOD TAKE ONE TABLET BY MOUTH TWICE A DAY WITH FOOD SOLD: 03/11/2020 [facility] DIAPER,BRIEF,ADULT, DISPOSABLE 08/09/2019 12:00:00 AM EDT mi mn 56 CHANGE DIRECTED CHANGE DIRECTED SOLD: 12/28/2019 [facility] 25 mg 07/18/2019 12:00:00 AM EDT tablet 90 TAKE ONE TABLET BY MOUTH EVERY DAY TAKE ONE TABLET BY MOUTH EVERY DAY SOLD: 11/28/2019 [facility] Losartan Potassium 50 MG Oral Tablet LOSARTAN POTASSIUM 12:00:00 AM EDT tablet 60 TAKE ONE TABLET BY MOUTH TWO TIMES A DAY TAKE ONE TABLET BY MOUTH TWO TIMES A DAY SOLD: 11/17/2019 [facility] 18 mcg 05/07/2019 12:00:00 AM EDT capsule, w/inhalation d evice 30 INHALE THE CONTENTS OF ONE CAPSULE VIA HANDIHALER BY MOUTH EVERY MORNING INHALE THE CONTENTS OF ONE CAPSULE VIA HANDIHALER BY MOUTH EVERY MORNING SOLD: 11/20/2019 [facility] 18 mcg 05/07/2019 12:00:00 AM EDT capsule, w/inhalation d evice 30 INHALE THE CONTENTS OF ONE CAPSULE VIA HANDIHALER BY MOUTH EVERY MORNING INHALE THE CONTENTS OF ONE CAPSULE VIA HANDIHALER BY MOUTH EVERY MORNING SOLD: 12/28/2019 [facility] 5 mg 04/03/2019 12:00:00 AM EDT tablet 60 TAKE 1-2 TABLETS BY MOUTH ONCE A DAY TAKE 1-2 TABLETS BY MOUTH ONCE A DAY SOLD: 12/12/2019 [facility] Insurance Providers Payer name Policy type / Coverage type Policy ID Covered alliance party ID Covered alliance party's relationship to simon Policy Simon Plan Information HUMANA GOLD [id number] SP [id number] EMEDNY [id number] SP [id number] HUMANA GOLD O [id number] S [id number] MEDICAID [id number] S [id number] HUMANA GOLD [id number] SP [id number] MEDICARE [id number] SP [id number] EMEDNY [id number] SP [id number] HUMANA GOLD O [id number] S [id number] MEDICAID [id number] SP [id number] MEDICARE C [id number] S [id number] MEDICAID [id number] SP [id number] MEDICAID [id number] [place] [id number] MEDICARE [id number] [place] [id number] MEDICAID [id number] S [id number] MEDICARE [id number] S [id number] [place] [id number] Self [id number] [place] [id number] Self [id number] [place] [id number] Self [id number] [place] [id number] Self [id number] [place] [id number] Self [id number] [place] [id number] Self [id number] [place] [id number] Self [id number] [place] [id number] Self [id number] [place] [id number] Self [id number] MEDICAID M [id number] Self [id number] MEDICARE A [id number] Self [id number] MEDICAID [id number] SP [id number] MEDICARE [id number] SP [id number] MEDICARE C [id number] S [id number] S [facility] C [id number] S [id number] MEDICAID [id number] SP [id number] MEDICARE [id number] SP [id number] MEDICAID [id number] SP [id number] MEDICAID [id number] SP [id number] MEDICAID [id number] SP [id number] MEDICAID [id number] SP [id number] Problems, Conditions, and Diagnoses Code Display Name Description Problem Type Effective Dates Data Source(s) 145265113 Chronic hypoxemic respiratory failure Ch ronic hypoxemic respiratory failure Problem 01/30/2020 12:00:00 [id number] Patient on oxygen Patient on oxygen Problem 11/30 12:00:00 AM EST [facility] ([facility]) Surgeries/Procedures Procedure Description Date Indications Data Source(s) Spirometry 05/09/2020 12:00:[facility] Spirometry 11/30/2019 12:00:00 AM EST [facility] ([facility]) Results ID Date Data Source [id number] 08/13/2020 02:13:00 PM EDT [facility] ([facility]) Name Value Range Interpretation Code Description Data Rachel rce(s) Supporting Document(s) PDFReport Laboratory test result [facility] ([facility]) FVC-%Pred-Pre 42 L [facility] ([facility]) FVC-Pred 2.62 L [facility] ([facility]) FVC-Pre 1.12 L [facility] ([facility]) FVC-LLN 2.01 L [facility] ([facility]) Fev1-Pre 0.78 L [facility] ([facility]) Fev1-%Pred-Pre 39 L [facility] ([facility]) Fev1-Pred 1.99 L [facility] ([facility]) Fev6-Pre 1.12 L [facility] ([facility]) Fev6-Pred 2.51 L [facility] ([facility]) Fev1-LLN 1.48 L [facility] ([facility]) Fev6-LLN 1.91 L [facility] ([facility]) Sjg0aar-Qdir 77 % [facility] ([facility]) Fev6-%Pred-Pre 44 L [facility] ([facility]) Vht1kjq-%Pred-Pre 90 % [facility] ([facility]) Lgv3esf-Bhm 69 % [facility] ([facility]) Lva7frr-AHI 67 % [facility] ([facility]) Hvu4msi-%Pred-Pre 104 % [facility] ([facility]) Sji9kth-Rjzp 96 % [facility] ([facility]) Raf3yee-Viw 100 % [facility] ([facility]) FEFMax-LLN 3.76 L/E/sec [facility] ([facility]) FEFMax-%Pred-Pre 36 L/E/sec [facility] ([facility]) FEFMax-Pre 1.90 L/E/sec [facility] ([facility]) FEFMax-Pred 5.27 L/E/sec [facility] ([facility]) Dgd8125-Jly 0.50 L/E/sec [facility] ([facility]) Atm5453-Aglh 1.82 L/E/sec [facility] ([facility]) Dvp3358-%Pred-Pre 27 L/E/sec [facility] ([facility]) Yfe6304-XWK 0.72 L/E/sec [facility] ([facility]) Isf4uqk4-Zmtv 80 % [facility] ([facility]) ExpTime-Pre 4.80 sec [facility] ([facility]) Xjo3gdb3-%Pred-Pre 87 % [facility] ([facility]) Idi8vll5-Odd 69 % [facility] ([facility]) Qmt5qtn3-WMJ 71 % [facility] ([facility]) ID Date Data Source [id number] 05/09/2020 01:50:00 PM EDT [facility] ([facility]) Name Value Range Interpretation Code Description Data Rachel rce(s) Supporting Document(s) FVC-Pred 2.62 L [facility] ([facility], ) PDFReport Laboratory test result [facility] ([facility], ) FVC-LLN 2.01 L [facility] ([facility]) FVC-Pre 1.25 L [facility] ([facility]) FVC-%Pred-Pre 47 L [facility] ([facility]) Fev1-Pre 0.75 L [facility] ([facility]) Fev1-%Pred-Pre 37 L [facility] ([facility]) Fev1-Pred 1.99 L [facility] ([facility]) Fev6-Pre 1.24 L [facility] ([facility]) Fev6-%Pred-Pre 49 L [facility] ([facility]) Fev6-Pred 2.51 L [facility] ([facility]) Fev1-LLN 1.48 L [facility] ([facility]) Gvt8zmg-Tum 60 % [facility] ([facility]) Fev6-LLN 1.91 L [facility] ([facility]) Nud1csz-Wzvc 77 % [facility] ([facility]) Ayy4wrb-IQC 67 % [facility] ([facility]) Wya4pod-Rrni 96 % [facility] ([facility]) Ynt7bae-%Pred-Pre 78 % [facility] ([facility]) Lbj5vls-Bet 100 % [facility] ([facility]) FEFMax-Pred 5.27 L/E/sec [facility] ([facility]) Ica5ezf-%Pred-Pre 104 % [facility] ([facility]) FEFMax-%Pred-Pre 25 L/E/sec [facility] ([facility]) FEFMax-LLN 3.76 L/E/sec [facility] ([facility]) FEFMax-Pre 1.35 L/E/sec [facility] ([facility]) Iso4006-%Pred-Pre 23 L/E/sec [facility] ([facility]) Wyd4874-Uyp 0.42 L/E/sec [facility] ([facility]) Wrn9691-Owej 1.82 L/E/sec [facility] ([facility]) ExpTime-Pre 7.93 sec [facility] Qkt1npv1-Nfsi 80 % [facility] ([facility]) Pic1425-BCX 0.72 L/E/sec [facility] ([facility]) Tmo4kgo2-Thw 61 % [facility] ([facility]) Roa9xxk1-%Pred-Pre 76 % [facility] ([facility]) Qxd5oza0-CNN 71 % [facility] ([facility]) Procedure Vital Signs ID Date Data Source UNK Name Value Range Interpretation Code Description Data Source(s) Body weight 93.442 kg 93.442 kg [facility] ([facility]) [place] body weight 100 [lb_av] 100 [lb_av] [facility] Body mass index (BMI) [Ratio] 40.2 kg/m2 40.2 k g/m2 [facility] ([facility]) Body weight 206.00 [lb_av] 206.00 [lb_av] [facility] Body height 60 [in_i] 60 [in_i] [facility] ([facility]) 5'0" Body temperature 97.4 [degF] 97.4 [degF] [facility] ([facility]) Oxygen saturation in Arterial blood by Pulse oximetry 993 % 993 % [facility] ([facility]) Heart rate 69 /min 69 /min [facility] ([facility]) Diastolic blood pressure 78 mm[Hg] 78 mm[Hg] [facility] ([facility]) Systolic blood pressure 142 mm[Hg] 142 mm[Hg] [facility] Systolic blood pressure 136 mm[Hg] 136 mm[Hg] [facility] ([facility]) [place] body weight 100 [lb_av] 100 [lb_av] [facility] ([facility]) Body height 60 [in_i] 60 [in_i] [facility] ([facility]) 5'0" Heart rate 64 /min 64 /min [facility] ([facility]) Diastolic blood pressure 67 mm[Hg] 67 mm[Hg] [facility] ([facility]) Heart rate 86 /min 86 /min [facility] ([facility]) Diastolic blood pressure 80 mm[Hg] 80 mm[Hg] [facility] ([facility]) Systolic blood pressure 138 mm[Hg] 138 mm[Hg] [facility] ([facility]) Body weight 90.720 kg 90.720 kg [facility] ([facility]) Body mass index (BMI) [Ratio] 39.1 kg/m2 39.1 k g/m2 [facility] ([facility]) Body weight 200.00 [lb_av] 200.00 [lb_av] [facility] ([facility]) Body height 60 [in_i] 60 [in_i] [facility] ([facility]) 5'0" Body temperature 98.5 [degF] 98.5 [degF] [facility] ([facility]) Oxygen saturation in Arterial blood by Pulse oximetry 93 % 93 % [facility] ([facility]) Diastolic blood pressure 70 mm[Hg] 70 mm[Hg] [facility] ([facility]) Systolic blood pressure 158 mm[Hg] 158 mm[Hg] [facility] ([facility]) Body weight 90.493 kg 90.493 kg [facility] ([facility]) Body mass index (BMI) [Ratio] 39.0 kg/m2 39.0 k g/m2 [facility] ([facility]) Body weight 199.50 [lb_av] 199.50 [lb_av] [facility] ([facility]) Body height 60 [in_i] 60 [in_i] [facility] ([facility]) 5'0" Oxygen saturation in Arterial blood by Pulse oximetry 872 % 872 % [facility] ([facility]) 98@l at rest Heart rate 74 /min 74 /min [facility] ([facility]) Body weight 84.823 kg 84.823 kg [facility] ([facility]) Body mass index (BMI) [Ratio] 36.5 kg/m2 36.5 k g/m2 [facility] ([facility]) Body weight 187.00 [lb_av] 187.00 [lb_av] [facility] Body height 60 [in_i] 60 [in_i] [facility] ([facility]) 5'0" Oxygen saturation in Arterial blood by Pulse oximetry 983 % 983 % [facility] ([facility]) Heart rate 62 /min 62 /min [facility] ([facility], ) Diastolic blood pressure 80 mm[Hg] 80 mm[Hg] [facility] ([facility]) Systolic blood pressure 130 mm[Hg] 130 mm[Hg] [facility] ([facility], )
--- NOTE | 2021-01-03 13:47 | REP ---
INDICATION: fall. COMPARISON: None. TECHNIQUE: AP and frogleg views of the right hip are obtained. FINDINGS: Image quality is substantially inhibited by patient body habitus. There is diffuse osteopenia. Femoral head is smooth and rounded. No fracture or dislocation is seen. Some vascular calcifications noted. IMPRESSION: Diffuse osteopenia. No fracture is appreciated. <Electronically signed by Isidro Robles > 01/03/21 [id number]
[2021-01-03 14:12] VITALS: BP 156/66
== END 2021-01-03 14:36 | disposition home or self-care (01) ==
LOC: M ED 11:50 → EDBD 11:50 → M ED 14:36
DX: S70.01XA Contusion of right hip, initial encounter (principal); W19.XXXA Unspecified fall, initial encounter; Y92.018 Other place in single-family (private) house as the place of occurrence of the external cause; E11.9 Type 2 diabetes mellitus without complications; I10 Essential (primary) hypertension; J44.9 Chronic obstructive pulmonary disease, unspecified; Z79.899 Other long term (current) drug therapy; Z79.84 Long term (current) use of oral hypoglycemic drugs; Z79.01 Long term (current) use of anticoagulants; Z88.1 Allergy status to other antibiotic agents; Z88.8 Allergy status to other drugs, medicaments and biological substances; Z91.040 Latex allergy status; F17.210 Nicotine dependence, cigarettes, uncomplicated

== ENCOUNTER 2021-07-22 15:02 | Emergency (ER) | payer OTHER, MEDICAID ==
[~2021-07-22] VITALS: Ht 152.4 cm; Wt 87.7 kg
[~2021-07-22 15:02] MED LIST changes: -DOXY100C PO; +DOXY100C3 PO; +MULT-90 PO
[2021-07-22] MEDS ORDERED: DULO1CAP6 PO (19:53)
[2021-07-22] MEDS ORDERED: CYCL5TAB PO (19:53)
[2021-07-22] MEDS ORDERED: WARF-23 PO (19:53)
[2021-07-22] MEDS ORDERED: NS 500 ML IV ONE (20:45)
[2021-07-22 21:12] LABS: BASO # 0.1 10^3/uL (0.0-0.2); BASO % 0.6 % (0.0-1.0); EOS # 0.2 10^3/uL (0.0-0.5); EOS % 1.4 % (0.0-3.0); LYMPH % 28.4 % (24.0-44.0); MEAN CORPUSCULAR HGB CONC 31.8 g/dl (32.0-36.5); MEAN CORPUSCULAR VOLUME 94.4 fl (80.0-96.0); MONO # 0.9 10^3/uL (0.0-0.8); MONO % 8.4 % (2.0-8.0); NEUTROPHILS # 6.5 10^3/uL (1.5-8.5); PLATELET COUNT, AUTOMATED 422 10^3/uL (150-450); RED BLOOD COUNT 4.66 10^6/uL (4.00-5.40); WHITE BLOOD COUNT 10.6 10^3/uL (4.0-10.0)
[2021-07-22 21:51] LABS: ALBUMIN 3.4 GM/DL (3.2-5.2); ALT/SGPT 20 U/L (12-78); BILIRUBIN,DIRECT < 0.1 MG/DL (0.0-0.2); BILIRUBIN,TOTAL 0.4 MG/DL (0.2-1.0); C REACTIVE PROTEIN QUANTITATIV 4.98 MG/DL (0.00-0.30); LIPASE 74 U/L (73-393); TOTAL PROTEIN 8.1 GM/DL (6.4-8.2)
[2021-07-22 21:56] VITALS: BP 144/63
[2021-07-22] MEDS ORDERED: IPRATROPIUM 0.5MG/ALBUTEROL 2.5MG INH SOL UD 3ML (DUONEB) NEB ONE (23:05)
[2021-07-23] MEDS ORDERED: NS 500 ML IV ONE (01:05)
== END 2021-07-23 00:52 | disposition home or self-care (01) ==
LOC: M ED 15:02
DX: R19.7 Diarrhea, unspecified (principal); R10.9 Unspecified abdominal pain; E86.0 Dehydration; E87.5 Hyperkalemia; I10 Essential (primary) hypertension; E78.5 Hyperlipidemia, unspecified; Z86.73 Personal history of transient ischemic attack (TIA), and cerebral infarction without residual deficits; J44.9 Chronic obstructive pulmonary disease, unspecified; F17.200 Nicotine dependence, unspecified, uncomplicated; Z88.8 Allergy status to other drugs, medicaments and biological substances; Z91.040 Latex allergy status; Z79.899 Other long term (current) drug therapy

== ENCOUNTER → 2021-08-06 | Outpatient (CLI) | payer OTHER, MEDICAID ==
[~2021-08-06] MED LIST changes: +CYCL5TAB PO; +DULO1CAP6 PO
--- NOTE | 2021-08-06 16:50 | REP ---
INDICATION: ABNORMAL FINDING OF LUNG FIELD. COMPARISON: Comparison CT studies are from December 17, 2020, October 03, 2019, and May 24, 2019. TECHNIQUE: Helical scanning is acquired. 3 mm axial images are generated. Coronal and sagittal MPR and coronal MIP images are generated. FINDINGS: The most recent prior study showed a 7 mm nodule in the lingula. On today's exam this is again seen and has increased in size measuring 10 mm today compared to 7 mm previously. This nodule projects on page 55 of 85 and series [id number] of today's study. There are 2 tiny satellite nodules adjacent to this. There is minimal linear fibrosis in the lingula more medially. Elsewhere in the left upper lobe, today's CT study shows a 2nd new pulmonary nodule. This measures 5 mm in greatest diameter. This is seen on page 32 of 85 in series [id number] of today's study. There is a tiny 2 mm nodule in the right upper lobe which is visible in retrospect on prior studies and is unchanged. Stable small scattered normal sized mediastinal lymph nodes are again seen. Vascular calcification is observed. No pleural or pericardial effusion is seen. No adrenal lesion is seen. No bony destructive lesion is appreciated. IMPRESSION: Interval increase in the size of the lingular nodule to 10 mm with 2 small satellite nodules. Consider PET scintigraphy. There is a 2nd new nodule 5 mm in diameter in the left upper lobe on today's CT study as well. <Electronically signed by Isidro Robles > 08/06/21 [id number]
== END ==
LOC: M PLAIMG 13:26
PROVIDERS: ATTEND Physician Assistant
DX: R91.8 Other nonspecific abnormal finding of lung field (principal)

== ENCOUNTER → 2021-09-09 | Outpatient (CLI) | payer MEDICARE ==
--- NOTE | 2021-09-10 10:00 | REP ---
INDICATION: STAGING LUNG CANCER R91.1. COMPARISON: CT examination of the chest of 08/06/2021. There are no prior PET CTs for comparison. TECHNIQUE: After the intravenous administration of 9.21 mCi of FDG 18 triplane whole-body PET-CT was performed from the skull base to the mid thigh. FINDINGS: The lingular nodule seen on the prior CT scan of the chest is hypermetabolic with a maximal SUV value of 4.09. No other areas of abnormal hypermetabolic activity are seen in the neck, chest, abdomen, or pelvis. IMPRESSION: The lingular lesion is abnormally hypermetabolic as described above. <Electronically signed by Deuce Case > 09/10/21 [id number]
== END ==
LOC: M PLARAD 13:34
PROVIDERS: ATTEND Physician Assistant
DX: R91.1 Solitary pulmonary nodule (principal); C34.90 Malignant neoplasm of unspecified part of unspecified bronchus or lung
CPT/HCPCS: 78815; A9552

== ENCOUNTER → 2021-10-02 | Outpatient (CLI) | payer MEDICARE ==
[~2021-10-02] MED LIST changes: +LIDOCAINE 1% MDV 20ML VIAL As Ordered ONE
[2021-10-02 08:51] VITALS: BP 180/76
[2021-10-02 08:58] LABS: HEMATOCRIT 45.4 % (36.0-47.0); MEAN CORPUSCULAR HEMOGLOBIN 29.4 pg (27.0-33.0); MEAN CORPUSCULAR HGB CONC 30.8 g/dl (32.0-36.5); MEAN CORPUSCULAR VOLUME 95.2 fl (80.0-96.0); PLATELET COUNT, AUTOMATED 408 10^3/uL (150-450); RED BLOOD COUNT 4.77 10^6/uL (4.00-5.40); WHITE BLOOD COUNT 9.3 10^3/uL (4.0-10.0)
[2021-10-02 09:16] LABS: INR 0.87; PROTHROMBIN TIME 12.2 SECONDS (12.7-14.5)
== END ==
LOC: M IRPRO 08:16
PROVIDERS: ATTEND Physician Assistant
DX: R91.1 Solitary pulmonary nodule (principal); Z53.8 Procedure and treatment not carried out for other reasons

== ENCOUNTER → 2022-04-01 | Outpatient (CLI) | payer MEDICARE, MEDICAID ==
[~2022-04-01] MED LIST changes: -CEFD1CAP8 PO; +CEFD300C41 PO; -LIDOCAINE 1% MDV 20ML VIAL As Ordered ONE; -LISI-898 PO; +LISI5TAB11 PO; +LOSA25TA13 PO; -LOSA25TA14 PO; +LOSA50TA28 PO; -LOSA50TA88 PO
== END ==
LOC: M RAD 10:59
PROVIDERS: ATTEND Internal Medicine Pulmonary Disease
DX: R91.1 Solitary pulmonary nodule (principal)

== ENCOUNTER → 2022-04-01 | Outpatient (CLI) | payer MEDICARE, MEDICAID ==
[2022-04-01 12:47] LABS: ALBUMIN 3.5 GM/DL (3.2-5.2); ALT/SGPT 21 U/L (12-78); BILIRUBIN,TOTAL 0.2 MG/DL (0.2-1.0); BLOOD UREA NITROGEN 19 MG/DL (7-18); CALCIUM LEVEL 9.8 MG/DL (8.8-10.2); CARBON DIOXIDE LEVEL 31 MEQ/L (21-32); CHLORIDE LEVEL 106 MEQ/L (98-107); CREATININE FOR GFR 0.76 MG/DL (0.55-1.30); GLOMERULAR FILTRATION RATE > 60.0 (>45); GLUCOSE, FASTING 79 MG/DL (70-100); MAGNESIUM LEVEL 1.5 MG/DL (1.8-2.4); POTASSIUM SERUM 5.4 MEQ/L (3.5-5.1); SODIUM LEVEL 136 MEQ/L (136-145); TOTAL PROTEIN 7.7 GM/DL (6.4-8.2)
== END ==
LOC: M LAB 11:06
PROVIDERS: ATTEND Family Medicine
DX: E61.2 Magnesium deficiency (principal)

== ENCOUNTER → 2022-05-15 | Outpatient (CLI) | payer OTHER ==
[~2022-05-15] MED LIST changes: +ALBU2.5V10 INH; -ALBU83IN INH; +ENOX80IN3 SQ; +LEVE500T5 PO; +LOPE-39 PO; +VITA100093 PO
[2022-05-15 09:12] LABS: PLATELET COUNT, AUTOMATED 342 10^3/uL (150-450)
[2022-05-15 09:25] LABS: INR 0.93; PARTIAL THROMBOPLASTIN TIME 29.3 SECONDS (25.9-37.0); PROTHROMBIN TIME 12.9 SECONDS (12.7-14.5)
== END ==
LOC: M LAB 07:57
PROVIDERS: ATTEND Internal Medicine Pulmonary Disease
DX: R91.8 Other nonspecific abnormal finding of lung field (principal); Z79.01 Long term (current) use of anticoagulants

== ENCOUNTER → 2022-05-16 | Outpatient (CLI) | payer MEDICAID, MEDICARE, OTHER ==
[~2022-05-16] MED LIST changes: +HOME MED LIST COMPLETE! XX SCH; +LIDOCAINE 1% MDV 20ML VIAL As Ordered ONE
[2022-05-16 08:30] VITALS: BP 191/88
== END ==
LOC: M IRPRO 08:08
PROVIDERS: ATTEND Internal Medicine Pulmonary Disease
DX: R91.8 Other nonspecific abnormal finding of lung field (principal)

== ENCOUNTER 2022-05-26 20:37 | Emergency (ER) | payer OTHER ==
[~2022-05-26] VITALS: Ht 152.4 cm; Wt 82.7 kg
[~2022-05-26 20:37] MED LIST changes: -HOME MED LIST COMPLETE! XX SCH; -LIDOCAINE 1% MDV 20ML VIAL As Ordered ONE
[2022-05-26] MEDS ORDERED: INCR1INH INH (20:47)
[2022-05-26] MEDS ORDERED: IPRATROPIUM 0.5MG/ALBUTEROL 2.5MG INH SOL UD 3ML (DUONEB) NEB ONE (22:40)
[2022-05-27 00:06] LABS: VENOUS BASE EXCESS 5.8 (-2.0-2.0); VENOUS HCO3 34.5 MEQ/L (23.0-27.0); VENOUS O2 SATURATION 48.1 % (60.0-80.0); VENOUS PARTIAL PRESSURE CO2 71.1 mmHg (38.0-50.0); VENOUS PARTIAL PRESSURE O2 26.5 mmHg (30.0-50.0); VENOUS PH 7.304 UNITS (7.330-7.430); VENOUS STANDARD HCO3 28.5 MEQ/L; VENOUS TOTAL CO2 36.7 MEQ/L (24.0-28.0)
[2022-05-27 00:09] LABS: BASO # 0.1 10^3/uL (0.0-0.2); BASO % 0.6 % (0.0-1.0); EOS # 0.2 10^3/uL (0.0-0.5); EOS % 2.2 % (0.0-3.0); HEMATOCRIT 39.6 % (36.0-47.0); HEMOGLOBIN 12.4 g/dl (12.0-15.5); LYMPH # 2.4 10^3/uL (1.5-5.0); LYMPH % 29.2 % (24.0-44.0); MEAN CORPUSCULAR HEMOGLOBIN 30.9 pg (27.0-33.0); MEAN CORPUSCULAR HGB CONC 31.3 g/dl (32.0-36.5); MEAN CORPUSCULAR VOLUME 98.8 fl (80.0-96.0); MONO # 0.8 10^3/uL (0.0-0.8); MONO % 9.8 % (2.0-8.0); NEUTROPHILS # 4.8 10^3/uL (1.5-8.5); PLATELET COUNT, AUTOMATED 333 10^3/uL (150-450); RED BLOOD COUNT 4.01 10^6/uL (4.00-5.40); WHITE BLOOD COUNT 8.2 10^3/uL (4.0-10.0)
[2022-05-27 00:34] LABS: BLOOD UREA NITROGEN 13 MG/DL (7-18); CALCIUM LEVEL 9.5 MG/DL (8.8-10.2); CARBON DIOXIDE LEVEL 37 MEQ/L (21-32); CHLORIDE LEVEL 103 MEQ/L (98-107); CREATININE FOR GFR 0.69 MG/DL (0.55-1.30); GLOMERULAR FILTRATION RATE > 60.0 (>45); GLUCOSE, FASTING 135 MG/DL (70-100); POTASSIUM SERUM 4.6 MEQ/L (3.5-5.1); SODIUM LEVEL 140 MEQ/L (136-145)
[2022-05-27] MEDS ORDERED: DOXY-443 PO (00:54)
[2022-05-27] MEDS ORDERED: DOXYCYCLINE HYCLATE 100MG TABLET PO ONE (00:55)
[2022-05-27 01:16] VITALS: BP 157/65
== END 2022-05-27 01:28 | disposition home or self-care (01) ==
LOC: M ED 20:37
DX: J18.8 Other pneumonia, unspecified organism (principal); E11.9 Type 2 diabetes mellitus without complications; I50.9 Heart failure, unspecified; J44.9 Chronic obstructive pulmonary disease, unspecified; I10 Essential (primary) hypertension; E78.9 Disorder of lipoprotein metabolism, unspecified; F32.A Depression, unspecified; E04.1 Nontoxic single thyroid nodule; D64.9 Anemia, unspecified; G47.33 Obstructive sleep apnea (adult) (pediatric); J30.2 Other seasonal allergic rhinitis; I87.2 Venous insufficiency (chronic) (peripheral); Z99.81 Dependence on supplemental oxygen; Z79.899 Other long term (current) drug therapy; Z79.84 Long term (current) use of oral hypoglycemic drugs; Z79.01 Long term (current) use of anticoagulants; Z88.1 Allergy status to other antibiotic agents; Z88.8 Allergy status to other drugs, medicaments and biological substances; Z91.040 Latex allergy status; F17.200 Nicotine dependence, unspecified, uncomplicated

== ENCOUNTER → 2022-06-16 | Outpatient (CLI) | payer OTHER ==
[~2022-06-16] MED LIST changes: +DOXY-443 PO; +INCR1INH INH
== END ==
LOC: M RAD 13:12
PROVIDERS: ATTEND Internal Medicine Pulmonary Disease
DX: R91.1 Solitary pulmonary nodule (principal); R91.8 Other nonspecific abnormal finding of lung field

== ENCOUNTER 2022-07-16 07:15 | Day surgery (SDC) | payer OTHER ==
[~2022-07-16] VITALS: Ht 152.4 cm; Wt 82.6 kg
[~2022-07-16 07:15] MED LIST changes: +ALBUTEROL SULFATE 2.5 MG/0.5 ML INH NEB SOLN INH ONE; +LIDOCAINE 4% INJ 5ML AMP As Ordered ONE; +LIDOCAINE 4% INJ 5ML AMP INH ONE
[2022-07-16] MEDS ORDERED: THROMBIN SOLN 5,000 UNITS VIAL As Ordered ONE (07:16)
[2022-07-16] MEDS ORDERED: CETACAINE SPRAY 5GM As Ordered ONE (07:17)
[2022-07-16] MEDS ORDERED: METOPROLOL TART 50 MG TAB PO ONE (08:05)
[2022-07-16] MEDS ORDERED: LR 1,000 ML IV SCH ×2 (08:05→10:00)
[2022-07-16] MEDS: EPINEPHrine 1MG/10ML SYRINGE 1.5IN As Ordered ONE ×2 (08:49→10:00)
[2022-07-16] MEDS ORDERED: dexameTHASONE 4 MG/ML 1ML VIAL (J1100 PER 1MG) As Ordered ONE (08:53)
[2022-07-16] MEDS ORDERED: ROCURONIUM BROMIDE 50 MG/5 ML VIAL As Ordered ONE (08:53)
[2022-07-16] MEDS ORDERED: MIDAZOLAM INJ 2MG/2ML VIAL (J2250 PER 1MG) As Ordered ONE (08:53)
[2022-07-16] MEDS ORDERED: ONDANSETRON 4MG 2ML VIAL As Ordered ONE (08:53)
[2022-07-16] MEDS ORDERED: fentaNYL 100 MCG/2 ML INJECTION As Ordered ONE (08:53)
[2022-07-16] MEDS ORDERED: LIDOCAINE 2% 100MG/5ML SDV (FOR ANES.) As Ordered ONE (08:53)
[2022-07-16] MEDS ORDERED: propofoL 200 MG/20 ML VIAL As Ordered ONE (08:53)
[2022-07-16] MEDS ORDERED: PHENYLephrine 500MCG 5ML (100MCG/ML) SYRINGE As Ordered ONE ×2 (08:54→09:35)
[2022-07-16] MEDS ORDERED: ESMOLOL INJ 100MG/10ML VIAL As Ordered ONE (09:03)
[2022-07-16] MEDS ORDERED: SUGAMMADEX SODIUM 500 MG/5 ML VIAL (BRIDION) As Ordered ONE (09:28)
[2022-07-16] MEDS ORDERED: LABETALOL 100MG/20ML VIAL As Ordered ONE (09:42)
[2022-07-16] MEDS ORDERED: ACETAMINOPHEN 1000MG 100ML IV BTL (OFIRMEV) (J0131 PER 10MG) As Ordered ONE (09:46)
[2022-07-16] MEDS ORDERED: oxyCODONE 5MG TAB PO PRN (10:00)
[2022-07-16] MEDS ORDERED: MORPHINE 2 MG/ML 1ML VIAL IV PRN (10:00)
[2022-07-16] MEDS ORDERED: ONDANSETRON 4MG 2ML VIAL IV PRN (10:00)
[2022-07-16] MEDS ORDERED: fentaNYL 100 MCG/2 ML INJECTION IV PRN (10:00)
[2022-07-16] MEDS ORDERED: INSULIN LISPRO (NovoLOG) PER UNIT SC PRN (10:35)
[2022-07-16] MEDS ORDERED: VASOPRESSIN INJ 20 UNITS/ML VIAL As Ordered ONE (10:43)
[2022-07-16 11:00] VITALS: BP 139/62
== END 2022-07-16 11:28 | disposition home or self-care (01) ==
LOC: M SDC 07:15
PROVIDERS: ATTEND Internal Medicine Pulmonary Disease
DX: J84.10 Pulmonary fibrosis, unspecified (principal); R91.8 Other nonspecific abnormal finding of lung field; R00.0 Tachycardia, unspecified; J44.9 Chronic obstructive pulmonary disease, unspecified; Z99.81 Dependence on supplemental oxygen
CPT/HCPCS: 31628; 31654; 71045; 76000; 87428; 88305; 88341; 88342; J0131; J0171; J1100; J1815; J2250; J2370; J2405; J3010; S2900

== ENCOUNTER → 2022-08-05 | Outpatient (CLI) | payer OTHER ==
[~2022-08-05] MED LIST changes: -ALBUTEROL SULFATE 2.5 MG/0.5 ML INH NEB SOLN INH ONE; -LIDOCAINE 4% INJ 5ML AMP As Ordered ONE; -LIDOCAINE 4% INJ 5ML AMP INH ONE
== END ==
LOC: M LAB 15:33
PROVIDERS: ATTEND Internal Medicine Pulmonary Disease
DX: R91.1 Solitary pulmonary nodule (principal)

== ENCOUNTER 2022-11-09 22:49 | Inpatient (IN) | payer MEDICARE, MEDICAID ==
[~2022-11-09] VITALS: Ht 149.9 cm; Wt 72.0 kg
[~2022-11-09 22:49] MED LIST changes: +CLOP75TA99 PO; -DOXY-350 PO; +DOXY-444 PO; -PLAV1TAB2 PO
[2022-11-09] MEDS ORDERED: LORazepam 2 MG/ML VIAL IV STA (23:04)
[2022-11-09] MEDS ORDERED: ALBUTEROL SULFATE 2.5MG/0.5ML INH NEB SOLN INH ONE (23:10)
[2022-11-09] MEDS ORDERED: IPRATROPIUM 0.02% SOLN 0.5MG 2.5ML NEB INH ONE (23:10)
[2022-11-09 23:39] LABS: BASO # 0.1 10^3/uL (0.0-0.2); BASO % 0.3 % (0.0-1.0); EOS # 0.1 10^3/uL (0.0-0.5); EOS % 0.5 % (0.0-3.0); HEMATOCRIT 39.6 % (36.0-47.0); HEMOGLOBIN 12.4 g/dl (12.0-15.5); LYMPH # 1.7 10^3/uL (1.5-5.0); LYMPH % 10.9 % (24.0-44.0); MEAN CORPUSCULAR HEMOGLOBIN 29.7 pg (27.0-33.0); MEAN CORPUSCULAR HGB CONC 31.3 g/dl (32.0-36.5); MEAN CORPUSCULAR VOLUME 94.7 fl (80.0-96.0); MONO # 0.9 10^3/uL (0.0-0.8); MONO % 5.7 % (2.0-8.0); NEUTROPHILS # 12.5 10^3/uL (1.5-8.5); NEUTROPHILS % 82.3 % (36.0-66.0); PLATELET COUNT, AUTOMATED 318 10^3/uL (150-450); RED BLOOD COUNT 4.18 10^6/uL (4.00-5.40); WHITE BLOOD COUNT 15.2 10^3/uL (4.0-10.0)
[2022-11-10] VITALS (15 sets, daily range): BP systolic 150–195; BP diastolic 67–126; O2SAT 88–99
[2022-11-10 00:03] LABS: CK-MB VALUE MASS < 1.0 NG/ML (<3.6)
[2022-11-10 00:04] LABS: CPK CREATINE PHOSPHOKINASE 29 U/L (34-145); MB/CK RELATIVE INDEX 3.44 (< OR =4)
[2022-11-10 00:47] LABS: BILIRUBIN,DIRECT 0.2 MG/DL (<0.4)
[2022-11-10 00:48] LABS: ALBUMIN 3.4 G/DL (3.2-5.2); ALKALINE PHOSPHATASE 131 U/L (46-116); ALT/SGPT < 9 U/L (7.0-40); AST/SGOT 19 U/L (<34); BILIRUBIN,TOTAL 0.6 MG/DL (0.3-1.2); BLOOD UREA NITROGEN 10 MG/DL (9-23); CARBON DIOXIDE LEVEL 31 MMOL/L (20-31); CHLORIDE LEVEL 94 MMOL/L (98-107); CREATININE FOR GFR 0.56 MG/DL (0.55-1.30); GLOMERULAR FILTRATION RATE > 60.0 (>45); GLUCOSE, FASTING 148 MG/DL (74-106); POTASSIUM SERUM 4.7 MMOL/L (3.5-5.1); SODIUM LEVEL 135 MMOL/L (136-145); TOTAL PROTEIN 8.1 G/DL (5.7-8.2)
[2022-11-10] MEDS ORDERED: ISOVUE-370 76% 100ML VIAL As Ordered ONE (01:16)
[2022-11-10 01:19] LABS: CK-MB VALUE MASS < 1.0 NG/ML (<3.6)
[2022-11-10 01:20] LABS: CPK CREATINE PHOSPHOKINASE 25 U/L (34-145)
[2022-11-10] MEDS ORDERED: LORazepam 2 MG/ML VIAL IV STA (02:02)
[2022-11-10] MEDS ORDERED: methylPREDNISolone 125MG 2ML VIAL IV STA (04:08)
[2022-11-10] MEDS ORDERED: GLUCAGON INJ 1MG VIAL SC PRN (04:10)
[2022-11-10] MEDS ORDERED: NS 1,000 ML IV SCH (04:10)
[2022-11-10] MEDS ORDERED: DEXTROSE 50% 50ML SYRINGE IV PRN (04:10)
[2022-11-10] MEDS ORDERED: GLUCOSE 4GM CHEW TABLET PO PRN (04:10)
[2022-11-10] MEDS ORDERED: ALBUTEROL SULFATE 2.5MG/0.5ML INH NEB SOLN NEB PRN (04:10)
[2022-11-10] MEDS ORDERED: NS 500 ML IV ONE (04:55)
[2022-11-10] MEDS: cefTRIAXone SOD 1 GM in D5W MINI-BAG PLUS 50 ML IV SCH (04:57)
[2022-11-10 05:40] LABS: BLOOD UREA NITROGEN 12 MG/DL (9-23); CALCIUM LEVEL 9.2 MG/DL (8.3-10.6); CARBON DIOXIDE LEVEL 31 MMOL/L (20-31); CHLORIDE LEVEL 96 MMOL/L (98-107); GLOMERULAR FILTRATION RATE > 60.0 (>45); GLUCOSE, FASTING 261 MG/DL (74-106); POTASSIUM SERUM 5.2 MMOL/L (3.5-5.1); SODIUM LEVEL 134 MMOL/L (136-145)
[2022-11-10] MEDS: HEPARIN SOD (PORCINE) 5000UNITS/ML 1ML VIAL/SYRINGE SC SCH ×2 (05:52→14:15)
[2022-11-10 05:56] LABS: MAGNESIUM LEVEL 0.9 MG/DL (1.8-2.4)
[2022-11-10] MEDS: DOXYCYCLINE HYCLATE 100 MG in D5W MINI-BAG PLUS 100 ML IV SCH ×2 (05:59→17:17)
[2022-11-10] MEDS: MAG SULF 1GM/100ML (MAG RUN) 1 GM in IV 1 EA IV SCH ×5 (06:21→10:39)
[2022-11-10] MEDS: INSULIN LISPRO (NovoLOG) PER UNIT SC SCH ×4 (07:25→21:00)
[2022-11-10] MEDS: IPRATROPIUM 0.5MG/ALBUTEROL 2.5MG INH SOL UD 3ML (DUONEB) NEB SCH ×3 (07:59→19:39)
[2022-11-10] MEDS: methylPREDNISolone 40MG 1ML VIAL IV SCH ×2 (08:42→21:16)
[2022-11-10] MEDS ORDERED: DULoxetine 30MG CAPSULE (CYMBALTA) PO SCH (09:00)
[2022-11-10] MEDS ORDERED: LOSARTAN 25 MG TAB PO SCH (09:00)
[2022-11-10] MEDS: PANTOPRAZOLE 40MG TAB (PROTONIX) PO SCH ×2 (09:03→10:38)
[2022-11-10] MEDS: hydrALAZINE 20MG/ML 1ML VIAL IV PRN (09:04)
[2022-11-10 09:08] LABS: ABG BASE EXCESS 2.7 (-2.0-2.0); ABG HCO3 28.1 MEQ/L (22.0-26.0); ABG O2 SATURATION 85.7 % (95.0-99.0); ABG PARTIAL PRESSURE CO2 46.5 mmHg (35.0-45.0); ABG PARTIAL PRESSURE O2 50.9 mmHg (75.0-100.0); ABG STANDARD HCO3 26.6 MEQ/L (22.0-26.0); ABG TOTAL CO2 29.5 MEQ/L (23.0-31.0); ABG pH (ARTERIAL) 7.399 UNITS (7.350-7.450)
[2022-11-10] MEDS ORDERED: methylPREDNISolone 40MG 1ML VIAL IV SCH (10:00)
[2022-11-10 13:10] LABS: INR 1.5; PROTHROMBIN TIME 18.4 SECONDS (12.5-14.5)
[2022-11-10 13:18] LABS: POTASSIUM SERUM 4.9 MMOL/L (3.5-5.1)
[2022-11-10 13:25] LABS: MAGNESIUM LEVEL 2.2 MG/DL (1.8-2.4)
[2022-11-10] MEDS ORDERED: WARF4TAB52 PO (14:01)
[2022-11-10] MEDS ORDERED: HOME MED LIST COMPLETE! XX SCH (14:05)
[2022-11-10] MEDS ORDERED: hydrALAZINE 20MG/ML 1ML VIAL IV ONE (14:05)
[2022-11-10] MEDS ORDERED: FUROSEMIDE 40 MG TAB PO PRN (14:10)
[2022-11-10] MEDS: SPIRONOLACTONE 25 MG TAB PO SCH (15:06)
[2022-11-10] MEDS: levETIRAcetam 250MG TABLET (KEPPRA) PO SCH ×2 (15:06→21:19)
[2022-11-10] MEDS ORDERED: NITROGLYCERIN 0.4MG SUBL TABLET SL PRN (15:35)
[2022-11-10] MEDS: WARFARIN SOD 5MG TAB PO SCH (17:17)
[2022-11-10] MEDS: ACETAMINOPHEN TAB 650MG DOSE (2X325MG) PO PRN (17:57)
[2022-11-10] MEDS ORDERED: LOSARTAN 50MG TABLET PO SCH (21:00)
[2022-11-10] MEDS: CLOTRIMAZOLE 1% TOPICAL CREAM 30GM TOP SCH (21:00)
[2022-11-10] MEDS ORDERED: PROPRANOLOL 10 MG TAB PO PRN (21:00)
[2022-11-10] MEDS: METOPROLOL TART 50 MG TAB PO SCH (21:16)
[2022-11-10] MEDS: SIMVASTATIN 20 MG TAB PO SCH (21:17)
[2022-11-10] MEDS: ACETAMINOPHEN 500 MG TAB PO SCH (21:19)
[2022-11-10] MEDS: CYCLOBENZAPRINE 5MG TABLET PO SCH (21:19)
[2022-11-11] VITALS (16 sets, daily range): BP systolic 130–167; BP diastolic 61–76
[2022-11-11] MEDS: IPRATROPIUM 0.5MG/ALBUTEROL 2.5MG INH SOL UD 3ML (DUONEB) NEB SCH ×4 (01:12→19:36)
[2022-11-11 04:47] LABS: BASO % 0.1 % (0.0-1.0); HEMATOCRIT 35.9 % (36.0-47.0); HEMOGLOBIN 11.7 g/dl (12.0-15.5); LYMPH # 0.9 10^3/uL (1.5-5.0); LYMPH % 5.6 % (24.0-44.0); MEAN CORPUSCULAR HEMOGLOBIN 30.3 pg (27.0-33.0); MEAN CORPUSCULAR HGB CONC 32.6 g/dl (32.0-36.5); MONO # 0.3 10^3/uL (0.0-0.8); MONO % 1.7 % (2.0-8.0); NEUTROPHILS # 14.4 10^3/uL (1.5-8.5); NEUTROPHILS % 92.3 % (36.0-66.0); PLATELET COUNT, AUTOMATED 357 10^3/uL (150-450); RED BLOOD COUNT 3.86 10^6/uL (4.00-5.40); WHITE BLOOD COUNT 15.6 10^3/uL (4.0-10.0)
[2022-11-11 05:11] LABS: MAGNESIUM LEVEL 1.9 MG/DL (1.8-2.4)
[2022-11-11 05:13] LABS: BLOOD UREA NITROGEN 16 MG/DL (9-23); CALCIUM LEVEL 9.9 MG/DL (8.3-10.6); CARBON DIOXIDE LEVEL 27 MMOL/L (20-31); CHLORIDE LEVEL 99 MMOL/L (98-107); CREATININE FOR GFR 0.55 MG/DL (0.55-1.30); GLOMERULAR FILTRATION RATE > 60.0 (>45); GLUCOSE, FASTING 196 MG/DL (74-106); POTASSIUM SERUM 5.3 MMOL/L (3.5-5.1); SODIUM LEVEL 137 MMOL/L (136-145)
[2022-11-11] MEDS: cefTRIAXone SOD 1 GM in D5W MINI-BAG PLUS 50 ML IV SCH (05:36)
[2022-11-11] MEDS: DOXYCYCLINE HYCLATE 100 MG in D5W MINI-BAG PLUS 100 ML IV SCH ×2 (05:42→18:15)
[2022-11-11] MEDS: INSULIN LISPRO (NovoLOG) PER UNIT SC SCH ×5 (07:23→20:08)
[2022-11-11] MEDS ORDERED: amLODIPine 5 MG TAB PO SCH (09:00)
[2022-11-11] MEDS: methylPREDNISolone 40MG 1ML VIAL IV SCH ×2 (10:01→20:14)
[2022-11-11] MEDS: SPIRONOLACTONE 25 MG TAB PO SCH (10:01)
[2022-11-11] MEDS: levETIRAcetam 250MG TABLET (KEPPRA) PO SCH ×2 (10:01→20:14)
[2022-11-11] MEDS: PANTOPRAZOLE 40MG TAB (PROTONIX) PO SCH (10:01)
[2022-11-11] MEDS: CLOTRIMAZOLE 1% TOPICAL CREAM 30GM TOP SCH ×2 (10:02→20:16)
[2022-11-11] MEDS: VITAMIN D 1,000 INTERNATIONAL UNITS TABLET PO SCH (10:02)
[2022-11-11] MEDS: SERTRALINE HCL 50 MG TAB PO SCH (10:02)
[2022-11-11] MEDS: METOPROLOL TART 50 MG TAB PO SCH ×2 (10:02→20:15)
[2022-11-11] MEDS ORDERED: WARFARIN SOD 1MG TAB PO SCH (17:00)
[2022-11-11] MEDS: WARFARIN SOD 5MG TAB PO SCH (18:15)
[2022-11-11] MEDS: CYCLOBENZAPRINE 5MG TABLET PO SCH (20:14)
[2022-11-11] MEDS: SIMVASTATIN 20 MG TAB PO SCH (20:15)
[2022-11-11] MEDS: ACETAMINOPHEN 500 MG TAB PO SCH (20:15)
[2022-11-12] VITALS: BP 153/67
[2022-11-12] MEDS: IPRATROPIUM 0.5MG/ALBUTEROL 2.5MG INH SOL UD 3ML (DUONEB) NEB SCH ×4 (01:43→19:47)
[2022-11-12 04:00] VITALS: BP 156/68
[2022-11-12] MEDS: cefTRIAXone SOD 1 GM in D5W MINI-BAG PLUS 50 ML IV SCH (04:04)
[2022-11-12 04:48] LABS: BASO % 0.1 % (0.0-1.0); HEMATOCRIT 36.5 % (36.0-47.0); HEMOGLOBIN 11.4 g/dl (12.0-15.5); LYMPH # 0.9 10^3/uL (1.5-5.0); LYMPH % 7.7 % (24.0-44.0); MEAN CORPUSCULAR HEMOGLOBIN 29.5 pg (27.0-33.0); MEAN CORPUSCULAR HGB CONC 31.2 g/dl (32.0-36.5); MEAN CORPUSCULAR VOLUME 94.3 fl (80.0-96.0); MONO # 0.3 10^3/uL (0.0-0.8); MONO % 2.8 % (2.0-8.0); NEUTROPHILS # 10.2 10^3/uL (1.5-8.5); PLATELET COUNT, AUTOMATED 374 10^3/uL (150-450); RED BLOOD COUNT 3.87 10^6/uL (4.00-5.40); WHITE BLOOD COUNT 11.5 10^3/uL (4.0-10.0)
[2022-11-12 04:57] LABS: INR 2.84; PROTHROMBIN TIME 30.3 SECONDS (12.5-14.5)
[2022-11-12 05:07] LABS: MAGNESIUM LEVEL 1.8 MG/DL (1.8-2.4)
[2022-11-12 05:17] LABS: BLOOD UREA NITROGEN 28 MG/DL (9-23); CARBON DIOXIDE LEVEL 27 MMOL/L (20-31); CHLORIDE LEVEL 100 MMOL/L (98-107); CREATININE FOR GFR 0.62 MG/DL (0.55-1.30); GLOMERULAR FILTRATION RATE > 60.0 (>45); GLUCOSE, FASTING 186 MG/DL (74-106); POTASSIUM SERUM 5.7 MMOL/L (3.5-5.1); SODIUM LEVEL 137 MMOL/L (136-145)
[2022-11-12] MEDS: DOXYCYCLINE HYCLATE 100 MG in D5W MINI-BAG PLUS 100 ML IV SCH (05:35)
[2022-11-12] MEDS ORDERED: SOD POLYSTYRENE SULFONATE SUSP 15GM 60ML UD PO ONE (06:15)
[2022-11-12 08:00] VITALS: BP 169/74
[2022-11-12] MEDS: predniSONE 20 MG TAB PO SCH (08:13)
[2022-11-12] MEDS: METOPROLOL TART 25 MG TABLET PO SCH ×2 (08:14→21:54)
[2022-11-12] MEDS: levETIRAcetam 250MG TABLET (KEPPRA) PO SCH ×2 (08:14→21:53)
[2022-11-12] MEDS: PANTOPRAZOLE 40MG TAB (PROTONIX) PO SCH (08:14)
[2022-11-12] MEDS: SERTRALINE HCL 50 MG TAB PO SCH (08:15)
[2022-11-12] MEDS: VITAMIN D 1,000 INTERNATIONAL UNITS TABLET PO SCH (08:15)
[2022-11-12] MEDS: SPIRONOLACTONE 25 MG TAB PO SCH (08:17)
[2022-11-12] MEDS: INSULIN LISPRO (NovoLOG) PER UNIT SC SCH ×4 (08:18→21:00)
[2022-11-12] MEDS: CLOTRIMAZOLE 1% TOPICAL CREAM 30GM TOP SCH ×2 (09:58→21:55)
[2022-11-12 12:00] VITALS: BP 200/88
[2022-11-12 13:00] VITALS: BP 168/70
[2022-11-12] MEDS: hydrALAZINE 20MG/ML 1ML VIAL IV PRN (13:40)
[2022-11-12] MEDS ORDERED: WARFARIN SOD 2MG TAB PO ONE (17:00)
[2022-11-12 17:07] LABS: MYCOPLASMA PNEUMONIAE IgG 1731 U/mL (0-99); MYCOPLASMA PNEUMONIAE IgM <770 U/mL (0-769)
[2022-11-12] MEDS: ACETAMINOPHEN TAB 650MG DOSE (2X325MG) PO PRN (17:43)
[2022-11-12] MEDS ORDERED: **hydrALAZINE** 50 MG TAB PO SCH (18:00)
[2022-11-12 20:00] VITALS: BP 181/74
[2022-11-12] MEDS: CYCLOBENZAPRINE 5MG TABLET PO SCH (21:54)
[2022-11-12] MEDS: ACETAMINOPHEN 500 MG TAB PO SCH (21:54)
[2022-11-12] MEDS: SIMVASTATIN 20 MG TAB PO SCH (21:54)
[2022-11-13] VITALS (20 sets, daily range): BP systolic 124–208; BP diastolic 62–96; O2SAT 97
[2022-11-13] MEDS: IPRATROPIUM 0.5MG/ALBUTEROL 2.5MG INH SOL UD 3ML (DUONEB) NEB SCH ×4 (01:17→20:00)
[2022-11-13] MEDS ORDERED: **hydrALAZINE** 50 MG TAB PO ONE (03:25)
[2022-11-13 06:29] LABS: BASO % 0.1 % (0.0-1.0); EOS % 0.2 % (0.0-3.0); HEMATOCRIT 36.1 % (36.0-47.0); HEMOGLOBIN 11.5 g/dl (12.0-15.5); LYMPH # 2.3 10^3/uL (1.5-5.0); LYMPH % 22.5 % (24.0-44.0); MEAN CORPUSCULAR HEMOGLOBIN 29.6 pg (27.0-33.0); MEAN CORPUSCULAR HGB CONC 31.9 g/dl (32.0-36.5); MONO % 9.6 % (2.0-8.0); NEUTROPHILS # 6.8 10^3/uL (1.5-8.5); NEUTROPHILS % 67.2 % (36.0-66.0); PLATELET COUNT, AUTOMATED 336 10^3/uL (150-450); RED BLOOD COUNT 3.88 10^6/uL (4.00-5.40); WHITE BLOOD COUNT 10.1 10^3/uL (4.0-10.0)
[2022-11-13 06:41] LABS: INR 2.7; PROTHROMBIN TIME 29.1 SECONDS (12.5-14.5)
[2022-11-13 06:58] LABS: MAGNESIUM LEVEL 1.5 MG/DL (1.8-2.4)
[2022-11-13 06:59] LABS: BLOOD UREA NITROGEN 35 MG/DL (9-23); CALCIUM LEVEL 10.2 MG/DL (8.3-10.6); CARBON DIOXIDE LEVEL 31 MMOL/L (20-31); CHLORIDE LEVEL 101 MMOL/L (98-107); CREATININE FOR GFR 0.65 MG/DL (0.55-1.30); GLOMERULAR FILTRATION RATE > 60.0 (>45); GLUCOSE, FASTING 156 MG/DL (74-106); POTASSIUM SERUM 4.1 MMOL/L (3.5-5.1); SODIUM LEVEL 140 MMOL/L (136-145)
[2022-11-13] MEDS ORDERED: **hydrALAZINE** 50 MG TAB PO SCH (09:00)
[2022-11-13] MEDS ORDERED: METOPROLOL TART 50 MG TAB PO SCH (09:00)
[2022-11-13] MEDS: SPIRONOLACTONE 25 MG TAB PO SCH (09:16)
[2022-11-13] MEDS: MAG SULF 1GM/100ML (MAG RUN) 1 GM in IV 1 EA IV SCH ×2 (09:16→11:46)
[2022-11-13] MEDS: SERTRALINE 100 MG TAB PO SCH (09:17)
[2022-11-13] MEDS: VITAMIN D 1,000 INTERNATIONAL UNITS TABLET PO SCH (09:18)
[2022-11-13] MEDS: predniSONE 20 MG TAB PO SCH ×2 (09:18→11:45)
[2022-11-13] MEDS: ACETAMINOPHEN TAB 650MG DOSE (2X325MG) PO PRN (09:18)
[2022-11-13] MEDS: PANTOPRAZOLE 40MG TAB (PROTONIX) PO SCH (09:18)
[2022-11-13] MEDS: levETIRAcetam 250MG TABLET (KEPPRA) PO SCH ×2 (09:18→20:58)
[2022-11-13] MEDS: **hydrALAZINE** 50 MG TAB PO SCH ×3 (09:19→20:59)
[2022-11-13] MEDS: CLOTRIMAZOLE 1% TOPICAL CREAM 30GM TOP SCH ×2 (09:20→21:00)
[2022-11-13] MEDS: INSULIN LISPRO (NovoLOG) PER UNIT SC SCH ×4 (09:20→20:58)
[2022-11-13] MEDS: MAGNESIUM OXIDE 400MG TAB (MAG-OX) PO SCH ×2 (11:45→20:58)
[2022-11-13] MEDS: WARFARIN SOD 5MG TAB PO SCH (17:12)
[2022-11-13] MEDS: SIMVASTATIN 20 MG TAB PO SCH (20:58)
[2022-11-13] MEDS: CYCLOBENZAPRINE 5MG TABLET PO SCH (20:58)
[2022-11-13] MEDS: METOPROLOL TART 50 MG TAB PO SCH (20:59)
[2022-11-13] MEDS ORDERED: METOPROLOL TART 25 MG TABLET PO SCH (21:00)
[2022-11-13] MEDS: ACETAMINOPHEN 500 MG TAB PO SCH (21:01)
[2022-11-14 00:01] VITALS: BP 132/59
[2022-11-14] MEDS: IPRATROPIUM 0.5MG/ALBUTEROL 2.5MG INH SOL UD 3ML (DUONEB) NEB SCH ×2 (01:04→07:56)
[2022-11-14 02:50] VITALS: BP 142/60
[2022-11-14 04:00] VITALS: BP 152/68
[2022-11-14 06:45] LABS: BASO % 0.1 % (0.0-1.0); EOS % 0.1 % (0.0-3.0); HEMATOCRIT 38.1 % (36.0-47.0); HEMOGLOBIN 12.2 g/dl (12.0-15.5); LYMPH # 1.9 10^3/uL (1.5-5.0); LYMPH % 18.5 % (24.0-44.0); MEAN CORPUSCULAR HEMOGLOBIN 29.8 pg (27.0-33.0); MEAN CORPUSCULAR VOLUME 92.9 fl (80.0-96.0); MONO # 0.8 10^3/uL (0.0-0.8); MONO % 8.1 % (2.0-8.0); NEUTROPHILS # 7.5 10^3/uL (1.5-8.5); NEUTROPHILS % 72.5 % (36.0-66.0); PLATELET COUNT, AUTOMATED 388 10^3/uL (150-450); WHITE BLOOD COUNT 10.3 10^3/uL (4.0-10.0)
[2022-11-14 06:56] LABS: INR 2.46; PROTHROMBIN TIME 27.1 SECONDS (12.5-14.5)
[2022-11-14 07:19] LABS: MAGNESIUM LEVEL 1.7 MG/DL (1.8-2.4)
[2022-11-14 07:20] LABS: BLOOD UREA NITROGEN 31 MG/DL (9-23); CALCIUM LEVEL 10.2 MG/DL (8.3-10.6); CARBON DIOXIDE LEVEL 30 MMOL/L (20-31); CHLORIDE LEVEL 100 MMOL/L (98-107); CREATININE FOR GFR 0.57 MG/DL (0.55-1.30); GLOMERULAR FILTRATION RATE > 60.0 (>45); GLUCOSE, FASTING 168 MG/DL (74-106); POTASSIUM SERUM 4.4 MMOL/L (3.5-5.1); SODIUM LEVEL 138 MMOL/L (136-145)
[2022-11-14 07:55] VITALS: O2SAT 97
[2022-11-14 08:00] VITALS: BP 156/71
[2022-11-14] MEDS ORDERED: MAG SULF 1GM/100ML (MAG RUN) 1 GM in IV 1 EA IV ONE (08:00)
[2022-11-14] MEDS ORDERED: SPIRONOLACTONE 25 MG TAB PO SCH (09:00)
[2022-11-14] MEDS: INSULIN LISPRO (NovoLOG) PER UNIT SC SCH ×2 (09:04→12:00)
[2022-11-14] MEDS: **hydrALAZINE** 50 MG TAB PO SCH (09:05)
[2022-11-14] MEDS: levETIRAcetam 250MG TABLET (KEPPRA) PO SCH (09:05)
[2022-11-14] MEDS: PANTOPRAZOLE 40MG TAB (PROTONIX) PO SCH (09:05)
[2022-11-14] MEDS: predniSONE 20 MG TAB PO SCH (09:05)
[2022-11-14] MEDS: SERTRALINE 100 MG TAB PO SCH (09:05)
[2022-11-14 09:06] VITALS: BP 156/71
[2022-11-14] MEDS: MAGNESIUM OXIDE 400MG TAB (MAG-OX) PO SCH (09:06)
[2022-11-14] MEDS: VITAMIN D 1,000 INTERNATIONAL UNITS TABLET PO SCH (09:06)
[2022-11-14] MEDS: METOPROLOL TART 50 MG TAB PO SCH (09:06)
[2022-11-14] MEDS: CLOTRIMAZOLE 1% TOPICAL CREAM 30GM TOP SCH (09:07)
[2022-11-14] MEDS ORDERED: AMLO1TAB25 PO ×2 (11:27→12:27)
[2022-11-14] MEDS ORDERED: PRED10TA2 PO (11:27)
[2022-11-14] MEDS ORDERED: HYDR50TA PO ×2 (11:27→12:27)
[2022-11-14] MEDS ORDERED: ZOLO100T PO (11:27)
[2022-11-14] MEDS ORDERED: ALDA25TA2 PO ×2 (11:27→12:27)
[2022-11-14] MEDS ORDERED: MAGN400T2 PO (12:27)
[2022-11-14] MEDS ORDERED: PRED20TA PO (12:38)
[2022-11-14] MEDS ORDERED: IPRA0.00 INH (12:38)
[2022-11-14] MEDS ORDERED: AZIT-12 PO (12:38)
[2022-11-14] MEDS ORDERED: AMOX875T2 PO (14:13)
[2022-11-14 18:07] LABS: BODY FLUID CULTURE Not indicated. (.); LEGIONELLA ANTIGEN URINE Negative (Negative); ORGANISM ID Not indicated. (.); SPECIMEN SOURCE Urine (.); URINE STREP PNEUMONIAE ANTIGEN Negative (Negative)
[2022-11-17 18:09] LABS: CHLAMYDIA PNEUMONIAE IgM < 1:10 (< 1:10); CHLAMYDIA PSITTACI IgM < 1:10 (< 1:10); CHLAMYDIA TRACHOMATIS IgM < 1:10 (< 1:10)
== END 2022-11-14 14:28 | disposition home health service (06) | DRG 189 ==
LOC: M ED 22:49 → EDBD 22:49 → M ED INP 11-10 04:08 → ENRESERV 11-10 09:02 → M ICU 11-10 09:30
PROVIDERS: ADMIT Internal Medicine; ATTEND Internal Medicine
DX: J96.21 Acute and chronic respiratory failure with hypoxia (principal); J44.1 Chronic obstructive pulmonary disease with (acute) exacerbation; R04.2 Hemoptysis; F33.1 Major depressive disorder, recurrent, moderate; I50.32 Chronic diastolic (congestive) heart failure; R45.851 Suicidal ideations; E11.42 Type 2 diabetes mellitus with diabetic polyneuropathy; G40.909 Epilepsy, unspecified, not intractable, without status epilepticus; K21.9 Gastro-esophageal reflux disease without esophagitis; I11.0 Hypertensive heart disease with heart failure; J96.22 Acute and chronic respiratory failure with hypercapnia; F43.9 Reaction to severe stress, unspecified; I25.10 Atherosclerotic heart disease of native coronary artery without angina pectoris; E87.5 Hyperkalemia; I16.0 Hypertensive urgency; K58.2 Mixed irritable bowel syndrome; M54.9 Dorsalgia, unspecified; E83.42 Hypomagnesemia; F41.1 Generalized anxiety disorder; F17.210 Nicotine dependence, cigarettes, uncomplicated; Z79.84 Long term (current) use of oral hypoglycemic drugs; Z99.81 Dependence on supplemental oxygen; Z79.01 Long term (current) use of anticoagulants; Z79.899 Other long term (current) drug therapy; Z88.1 Allergy status to other antibiotic agents; Z88.8 Allergy status to other drugs, medicaments and biological substances; Z86.718 Personal history of other venous thrombosis and embolism; Z91.040 Latex allergy status; Z86.711 Personal history of pulmonary embolism

== ENCOUNTER 2023-03-20 13:35 | Inpatient (IN) | payer MEDICARE, MEDICAID ==
[~2023-03-20] VITALS: Ht 152.4 cm; Wt 68.8 kg
[~2023-03-20 13:35] MED LIST changes: +ALBU8.5H PO; +ALDA25TA2 PO; +AMLO1TAB25 PO; +AMOX875T2 PO; +AZIT-12 PO; +BREO1INH3 PO; -COZA50TA PO; +LOSA-528 PO; +MAGN400T2 PO; +WARF4TAB52 PO; +ZOLO100T PO
[2023-03-20 15:05] LABS: BASO % 0.4 % (0.0-1.0); EOS # 0.4 10^3/uL (0.0-0.5); EOS % 5.3 % (0.0-3.0); HEMATOCRIT 36.8 % (36.0-47.0); HEMOGLOBIN 11.6 g/dl (12.0-15.5); LYMPH # 1.1 10^3/uL (1.5-5.0); LYMPH % 13.9 % (24.0-44.0); MEAN CORPUSCULAR HEMOGLOBIN 28.2 pg (27.0-33.0); MEAN CORPUSCULAR HGB CONC 31.5 g/dl (32.0-36.5); MEAN CORPUSCULAR VOLUME 89.5 fl (80.0-96.0); MONO # 0.6 10^3/uL (0.0-0.8); MONO % 7.4 % (2.0-8.0); NEUTROPHILS # 5.9 10^3/uL (1.5-8.5); NEUTROPHILS % 72.5 % (36.0-66.0); PLATELET COUNT, AUTOMATED 278 10^3/uL (150-450); RED BLOOD COUNT 4.11 10^6/uL (4.00-5.40); WHITE BLOOD COUNT 8.1 10^3/uL (4.0-10.0)
[2023-03-20 15:20] LABS: PROTHROMBIN TIME 97.9 SECONDS (12.5-14.5)
[2023-03-20 15:47] LABS: RSV AMPLIFICATION NEGATIVE (NEGATIVE)
[2023-03-20 15:48] LABS: INR 12.75; PARTIAL THROMBOPLASTIN TIME 173.7 SECONDS (24.8-34.2)
[2023-03-20 15:58] LABS: ALBUMIN 2.2 G/DL (3.2-5.2); ALKALINE PHOSPHATASE 85 U/L (46-116); ALT/SGPT 10 U/L (7.0-40); AST/SGOT 10 U/L (<34); BILIRUBIN,DIRECT < 0.1 MG/DL (<0.4); BILIRUBIN,TOTAL 0.2 MG/DL (0.3-1.2); BLOOD UREA NITROGEN 23 MG/DL (9-23); CALCIUM LEVEL 8.2 MG/DL (8.3-10.6); CARBON DIOXIDE LEVEL 30 MMOL/L (20-31); CHLORIDE LEVEL 96 MMOL/L (98-107); CREATININE FOR GFR 0.68 MG/DL (0.55-1.30); GLOMERULAR FILTRATION RATE > 60.0 (>45); GLUCOSE, FASTING 288 MG/DL (74-106); LIPASE 23 U/L (12-53); POTASSIUM SERUM 4.8 MMOL/L (3.5-5.1); SODIUM LEVEL 133 MMOL/L (136-145); TOTAL PROTEIN 6.3 G/DL (5.7-8.2)
[2023-03-20 16:43] LABS: PROTHROMBIN TIME 96.4 SECONDS (12.5-14.5)
[2023-03-20 17:25] LABS: INR 12.5
[2023-03-20] MEDS ORDERED: PHYTONADIONE INJection 10 MG in NS 50 ML IV ONE (19:05)
[2023-03-20] MEDS ORDERED: MORPHINE 2 MG/ML 1ML VIAL IV PRN (20:20)
[2023-03-20] MEDS ORDERED: IPRATROPIUM 0.5MG/ALBUTEROL 2.5MG INH SOL UD 3ML (DUONEB) NEB PRN (20:20)
[2023-03-20] MEDS ORDERED: ACETAMINOPH W/CODEINE #3 TAB UD PO PRN (20:20)
[2023-03-20] MEDS ORDERED: ACETAMINOPHEN TAB 650MG DOSE (2X325MG) PO PRN (20:20)
[2023-03-20] MEDS ORDERED: MAGN400T33 PO (20:40)
[2023-03-20] MEDS ORDERED: SPIR-10 PO (20:40)
[2023-03-20] MEDS ORDERED: HOME MED LIST COMPLETE! XX SCH (20:40)
[2023-03-20] MEDS ORDERED: AMLO1TAB25 PO (20:40)
[2023-03-20] MEDS ORDERED: ZOLO100T PO (20:40)
[2023-03-20] MEDS: LIDOCAINE 5% (LIDODERM) PATCH TD SCH (21:00)
[2023-03-20] MEDS ORDERED: PANTOPRAZOLE 40MG VIAL IV ONE (22:50)
[2023-03-20] MEDS ORDERED: DEXTROSE 50% 50ML SYRINGE IV PRN (23:00)
[2023-03-20] MEDS ORDERED: ALBUTEROL 90 MCG/ACT 8GM HFA INHALER INH PRN (23:00)
[2023-03-20] MEDS ORDERED: IPRATROPIUM 0.5MG/ALBUTEROL 2.5MG INH SOL UD 3ML (DUONEB) INH PRN (23:00)
[2023-03-20] MEDS ORDERED: GLUCOSE 4GM CHEW TABLET PO PRN (23:00)
[2023-03-20] MEDS ORDERED: GLUCAGON INJ 1MG VIAL SC PRN (23:00)
[2023-03-21] VITALS (8 sets, daily range): BP systolic 106–146; BP diastolic 44–71; O2SAT 95
[2023-03-21] MEDS: SPIRONOLACTONE 25 MG TAB PO SCH ×3 (01:10→20:40)
[2023-03-21] MEDS: MAGNESIUM OXIDE 400MG TAB (MAG-OX) PO SCH ×3 (01:10→20:40)
[2023-03-21] MEDS: levETIRAcetam 250MG TABLET (KEPPRA) PO SCH ×3 (01:11→20:40)
[2023-03-21] MEDS: SIMVASTATIN 20 MG TAB PO SCH ×2 (01:11→20:40)
[2023-03-21] MEDS: ACETAMINOPHEN 500 MG TAB PO SCH ×2 (01:12→20:40)
[2023-03-21] MEDS: METOPROLOL TART 50 MG TAB PO SCH ×3 (01:12→20:44)
[2023-03-21] MEDS: INSULIN LISPRO (NovoLOG) PER UNIT SC SCH ×5 (01:13→20:33)
[2023-03-21 02:39] LABS: BASO % 0.6 % (0.0-1.0); EOS # 0.4 10^3/uL (0.0-0.5); EOS % 5.8 % (0.0-3.0); HEMATOCRIT 32.5 % (36.0-47.0); HEMOGLOBIN 10.5 g/dl (12.0-15.5); LYMPH # 1.3 10^3/uL (1.5-5.0); LYMPH % 17.2 % (24.0-44.0); MEAN CORPUSCULAR HEMOGLOBIN 28.7 pg (27.0-33.0); MEAN CORPUSCULAR HGB CONC 32.3 g/dl (32.0-36.5); MEAN CORPUSCULAR VOLUME 88.8 fl (80.0-96.0); MONO # 0.7 10^3/uL (0.0-0.8); MONO % 9.1 % (2.0-8.0); NEUTROPHILS # 4.9 10^3/uL (1.5-8.5); NEUTROPHILS % 66.9 % (36.0-66.0); PLATELET COUNT, AUTOMATED 262 10^3/uL (150-450); RED BLOOD COUNT 3.66 10^6/uL (4.00-5.40); WHITE BLOOD COUNT 7.3 10^3/uL (4.0-10.0)
[2023-03-21 03:15] LABS: HEMOGLOBIN A1c 10.7 % (4.0-6.0)
[2023-03-21] MEDS: MAG SULF 1GM/100ML (MAG RUN) 1 GM in IV 1 EA IV SCH ×4 (03:43→11:13)
[2023-03-21] MEDS: TIOTROPIUM INHALER/CAPSULE (SPIRIVA) INH SCH (07:18)
[2023-03-21] MEDS: SERTRALINE 100 MG TAB PO SCH (07:53)
[2023-03-21] MEDS: VITAMIN D 1,000 INTERNATIONAL UNITS TABLET PO SCH (07:53)
[2023-03-21 07:57] LABS: HEMATOCRIT 36.9 % (36.0-47.0); HEMOGLOBIN 11.6 g/dl (12.0-15.5); MEAN CORPUSCULAR HEMOGLOBIN 28.2 pg (27.0-33.0); MEAN CORPUSCULAR HGB CONC 31.4 g/dl (32.0-36.5); MEAN CORPUSCULAR VOLUME 89.8 fl (80.0-96.0); PLATELET COUNT, AUTOMATED 277 10^3/uL (150-450); RED BLOOD COUNT 4.11 10^6/uL (4.00-5.40); WHITE BLOOD COUNT 6.9 10^3/uL (4.0-10.0)
[2023-03-21] MEDS: PANTOPRAZOLE 40MG TAB (PROTONIX) PO SCH (07:59)
[2023-03-21 08:05] LABS: HEMOGLOBIN A1c 10.6 % (4.0-6.0)
[2023-03-21 08:29] LABS: ALBUMIN 2.1 G/DL (3.2-5.2); ALKALINE PHOSPHATASE 81 U/L (46-116); ALT/SGPT < 9 U/L (7.0-40); AST/SGOT 9 U/L (<34); BILIRUBIN,TOTAL 0.4 MG/DL (0.3-1.2); BLOOD UREA NITROGEN 18 MG/DL (9-23); CALCIUM LEVEL 8.6 MG/DL (8.3-10.6); CARBON DIOXIDE LEVEL 33 MMOL/L (20-31); CHLORIDE LEVEL 97 MMOL/L (98-107); CREATININE FOR GFR 0.65 MG/DL (0.55-1.30); GLOMERULAR FILTRATION RATE > 60.0 (>45); GLUCOSE, FASTING 251 MG/DL (74-106); MAGNESIUM LEVEL 1.4 MG/DL (1.8-2.4); POTASSIUM SERUM 4.5 MMOL/L (3.5-5.1); SODIUM LEVEL 134 MMOL/L (136-145); TOTAL PROTEIN 5.9 G/DL (5.7-8.2)
[2023-03-21 10:20] LABS: INR 1.19; PROTHROMBIN TIME 15.4 SECONDS (12.5-14.5)
[2023-03-21] MEDS: LIDOCAINE 5% (LIDODERM) PATCH TD SCH (20:41)
[2023-03-22] VITALS (8 sets, daily range): BP systolic 108–146; BP diastolic 48–82; O2SAT 94
[2023-03-22 06:42] LABS: BASO # 0.1 10^3/uL (0.0-0.2); BASO % 0.6 % (0.0-1.0); EOS # 0.4 10^3/uL (0.0-0.5); HEMATOCRIT 33.3 % (36.0-47.0); HEMOGLOBIN 10.4 g/dl (12.0-15.5); LYMPH # 1.1 10^3/uL (1.5-5.0); LYMPH % 14.7 % (24.0-44.0); MEAN CORPUSCULAR HEMOGLOBIN 28.3 pg (27.0-33.0); MEAN CORPUSCULAR HGB CONC 31.2 g/dl (32.0-36.5); MEAN CORPUSCULAR VOLUME 90.5 fl (80.0-96.0); MONO # 0.6 10^3/uL (0.0-0.8); MONO % 7.6 % (2.0-8.0); NEUTROPHILS # 5.6 10^3/uL (1.5-8.5); NEUTROPHILS % 71.6 % (36.0-66.0); PLATELET COUNT, AUTOMATED 280 10^3/uL (150-450); RED BLOOD COUNT 3.68 10^6/uL (4.00-5.40); WHITE BLOOD COUNT 7.8 10^3/uL (4.0-10.0)
[2023-03-22 06:53] LABS: INR 1.2; PROTHROMBIN TIME 15.5 SECONDS (12.5-14.5)
[2023-03-22 07:15] LABS: BLOOD UREA NITROGEN 15 MG/DL (9-23); CALCIUM LEVEL 9.3 MG/DL (8.3-10.6); CARBON DIOXIDE LEVEL 30 MMOL/L (20-31); CHLORIDE LEVEL 102 MMOL/L (98-107); GLOMERULAR FILTRATION RATE > 60.0 (>45); GLUCOSE, FASTING 245 MG/DL (74-106); POTASSIUM SERUM 4.7 MMOL/L (3.5-5.1); SODIUM LEVEL 137 MMOL/L (136-145)
[2023-03-22] MEDS: TIOTROPIUM INHALER/CAPSULE (SPIRIVA) INH SCH (07:37)
[2023-03-22] MEDS ORDERED: TIOTROPIUM INHALER/CAPSULE (SPIRIVA) INH SCH (08:00)
[2023-03-22] MEDS: VITAMIN D 1,000 INTERNATIONAL UNITS TABLET PO SCH (08:04)
[2023-03-22] MEDS: MAGNESIUM OXIDE 400MG TAB (MAG-OX) PO SCH ×2 (08:04→21:40)
[2023-03-22] MEDS: SPIRONOLACTONE 25 MG TAB PO SCH ×2 (08:04→21:40)
[2023-03-22] MEDS: PANTOPRAZOLE 40MG TAB (PROTONIX) PO SCH (08:04)
[2023-03-22] MEDS: SERTRALINE 100 MG TAB PO SCH (08:04)
[2023-03-22] MEDS: METOPROLOL TART 50 MG TAB PO SCH ×2 (08:04→21:41)
[2023-03-22] MEDS: LEVEMIR (INSULIN DETEMIR) 1 UNITS/0.01ML SC SCH (08:05)
[2023-03-22] MEDS: INSULIN LISPRO (NovoLOG) PER UNIT SC SCH ×4 (08:05→21:00)
[2023-03-22] MEDS: levETIRAcetam 250MG TABLET (KEPPRA) PO SCH ×2 (08:05→21:40)
[2023-03-22 12:47] LABS: HEMATOCRIT 33.6 % (36.0-47.0); HEMOGLOBIN 10.5 g/dl (12.0-15.5); MEAN CORPUSCULAR HEMOGLOBIN 28.1 pg (27.0-33.0); MEAN CORPUSCULAR HGB CONC 31.3 g/dl (32.0-36.5); MEAN CORPUSCULAR VOLUME 89.8 fl (80.0-96.0); PLATELET COUNT, AUTOMATED 284 10^3/uL (150-450); RED BLOOD COUNT 3.74 10^6/uL (4.00-5.40); WHITE BLOOD COUNT 7.2 10^3/uL (4.0-10.0)
[2023-03-22] MEDS: SIMVASTATIN 20 MG TAB PO SCH (21:40)
[2023-03-22] MEDS: LIDOCAINE 5% (LIDODERM) PATCH TD SCH (21:40)
[2023-03-22] MEDS: ACETAMINOPHEN 500 MG TAB PO SCH (21:42)
[2023-03-23] VITALS (8 sets, daily range): BP systolic 115–138; BP diastolic 42–75; O2SAT 94
[2023-03-23 06:39] LABS: BASO # 0.1 10^3/uL (0.0-0.2); BASO % 0.6 % (0.0-1.0); EOS # 0.4 10^3/uL (0.0-0.5); EOS % 4.5 % (0.0-3.0); HEMATOCRIT 40.5 % (36.0-47.0); HEMOGLOBIN 12.3 g/dl (12.0-15.5); LYMPH # 1.1 10^3/uL (1.5-5.0); LYMPH % 13.9 % (24.0-44.0); MEAN CORPUSCULAR HEMOGLOBIN 28.1 pg (27.0-33.0); MEAN CORPUSCULAR HGB CONC 30.4 g/dl (32.0-36.5); MEAN CORPUSCULAR VOLUME 92.5 fl (80.0-96.0); MONO # 0.6 10^3/uL (0.0-0.8); MONO % 7.7 % (2.0-8.0); NEUTROPHILS # 5.9 10^3/uL (1.5-8.5); NEUTROPHILS % 72.7 % (36.0-66.0); PLATELET COUNT, AUTOMATED 294 10^3/uL (150-450); RED BLOOD COUNT 4.38 10^6/uL (4.00-5.40); WHITE BLOOD COUNT 8.1 10^3/uL (4.0-10.0)
[2023-03-23 06:54] LABS: INR 1.18; PROTHROMBIN TIME 15.3 SECONDS (12.5-14.5)
[2023-03-23 07:24] LABS: BLOOD UREA NITROGEN 15 MG/DL (9-23); CALCIUM LEVEL 9.4 MG/DL (8.3-10.6); CARBON DIOXIDE LEVEL 30 MMOL/L (20-31); CHLORIDE LEVEL 103 MMOL/L (98-107); CREATININE FOR GFR 0.58 MG/DL (0.55-1.30); GLOMERULAR FILTRATION RATE > 60.0 (>39); GLUCOSE, FASTING 192 MG/DL (74-106); SODIUM LEVEL 139 MMOL/L (136-145)
[2023-03-23] MEDS: TIOTROPIUM INHALER/CAPSULE (SPIRIVA) INH SCH (08:06)
[2023-03-23] MEDS ORDERED: ALBUTEROL SULFATE 2.5MG/0.5ML INH NEB SOLN NEB ONE (08:20)
[2023-03-23] MEDS ORDERED: FUROSEMIDE 20MG/2ML VIAL IV ONE (08:20)
[2023-03-23] MEDS: INSULIN LISPRO (NovoLOG) PER UNIT SC SCH ×4 (08:23→21:00)
[2023-03-23] MEDS: LEVEMIR (INSULIN DETEMIR) 1 UNITS/0.01ML SC SCH (08:23)
[2023-03-23] MEDS: levETIRAcetam 250MG TABLET (KEPPRA) PO SCH ×2 (08:24→21:50)
[2023-03-23] MEDS: PANTOPRAZOLE 40MG TAB (PROTONIX) PO SCH (08:24)
[2023-03-23] MEDS: MAGNESIUM OXIDE 400MG TAB (MAG-OX) PO SCH ×2 (08:24→21:52)
[2023-03-23] MEDS: METOPROLOL TART 50 MG TAB PO SCH ×2 (08:25→21:51)
[2023-03-23] MEDS: VITAMIN D 1,000 INTERNATIONAL UNITS TABLET PO SCH (08:25)
[2023-03-23] MEDS: SERTRALINE 100 MG TAB PO SCH (08:25)
[2023-03-23] MEDS: SPIRONOLACTONE 25 MG TAB PO SCH ×2 (08:26→21:52)
[2023-03-23] MEDS ORDERED: ISOVUE-370 76% 100ML VIAL As Ordered ONE (11:25)
[2023-03-23] MEDS: methylPREDNISolone 40MG 1ML VIAL IV SCH (12:47)
[2023-03-23] MEDS: LevoFLOXacin 750 MG TABLET PO SCH (12:47)
[2023-03-23] MEDS: ENOXAPARIN 80MG/0.8ML SYRINGE (J1650 PER 10MG) SC SCH (12:48)
[2023-03-23] MEDS: SIMVASTATIN 20 MG TAB PO SCH (21:52)
[2023-03-23] MEDS: ACETAMINOPHEN 500 MG TAB PO SCH (21:53)
[2023-03-23] MEDS: LIDOCAINE 5% (LIDODERM) PATCH TD SCH (21:53)
[2023-03-24] MEDS: ENOXAPARIN 80MG/0.8ML SYRINGE (J1650 PER 10MG) SC SCH (00:37)
[2023-03-24] MEDS: methylPREDNISolone 40MG 1ML VIAL IV SCH ×2 (00:38→12:47)
[2023-03-24 02:00] VITALS: BP 134/58
[2023-03-24] MEDS: LevoFLOXacin 750 MG TABLET PO SCH (05:32)
[2023-03-24 05:44] VITALS: BP 132/60
[2023-03-24 06:26] LABS: BASO % 0.1 % (0.0-1.0); HEMATOCRIT 35.1 % (36.0-47.0); HEMOGLOBIN 10.9 g/dl (12.0-15.5); LYMPH # 0.6 10^3/uL (1.5-5.0); LYMPH % 7.6 % (24.0-44.0); MEAN CORPUSCULAR HEMOGLOBIN 28.3 pg (27.0-33.0); MEAN CORPUSCULAR HGB CONC 31.1 g/dl (32.0-36.5); MEAN CORPUSCULAR VOLUME 91.2 fl (80.0-96.0); MONO # 0.1 10^3/uL (0.0-0.8); NEUTROPHILS % 90.9 % (36.0-66.0); PLATELET COUNT, AUTOMATED 379 10^3/uL (150-450); RED BLOOD COUNT 3.85 10^6/uL (4.00-5.40); WHITE BLOOD COUNT 7.7 10^3/uL (4.0-10.0)
[2023-03-24 06:30] LABS: INR 1.21; PROTHROMBIN TIME 15.6 SECONDS (12.5-14.5)
[2023-03-24 07:04] LABS: BLOOD UREA NITROGEN 23 MG/DL (9-23); CALCIUM LEVEL 9.1 MG/DL (8.3-10.6); CARBON DIOXIDE LEVEL 31 MMOL/L (20-31); CHLORIDE LEVEL 100 MMOL/L (98-107); CREATININE FOR GFR 0.78 MG/DL (0.55-1.30); GLOMERULAR FILTRATION RATE > 60.0 (>39); GLUCOSE, FASTING 357 MG/DL (74-106); POTASSIUM SERUM 6.5 MMOL/L (3.5-5.1); SODIUM LEVEL 135 MMOL/L (136-145)
[2023-03-24] MEDS ORDERED: HumuLIN R (REGULAR) INSULIN (NovoLIN R) **100U/ML** PER UNIT IV STA (07:18)
[2023-03-24] MEDS ORDERED: SOD POLYSTYRENE SULFONATE SUSP 15GM 60ML UD PO STA (07:18)
[2023-03-24] MEDS ORDERED: DEXTROSE 50% 50ML SYRINGE IV STA (07:18)
[2023-03-24] MEDS ORDERED: ALBUTEROL SULFATE 2.5MG/0.5ML INH NEB SOLN NEB ONE (07:20)
[2023-03-24] MEDS ORDERED: CALCIUM GLUCONATE 1,000 MG in D5W MINI-BAG PLUS 100 ML IV ONE (07:20)
[2023-03-24] MEDS: TIOTROPIUM INHALER/CAPSULE (SPIRIVA) INH SCH (07:26)
[2023-03-24] MEDS ORDERED: RIVAROXABAN 15MG TAB (XARELTO) PO SCH (08:00)
[2023-03-24] MEDS: LEVEMIR (INSULIN DETEMIR) 1 UNITS/0.01ML SC SCH (09:07)
[2023-03-24] MEDS: MAGNESIUM OXIDE 400MG TAB (MAG-OX) PO SCH (09:08)
[2023-03-24] MEDS: INSULIN LISPRO (NovoLOG) PER UNIT SC SCH ×2 (09:08→12:47)
[2023-03-24] MEDS: levETIRAcetam 250MG TABLET (KEPPRA) PO SCH (09:08)
[2023-03-24] MEDS: VITAMIN D 1,000 INTERNATIONAL UNITS TABLET PO SCH (09:08)
[2023-03-24] MEDS: SERTRALINE 100 MG TAB PO SCH (09:09)
[2023-03-24] MEDS: PANTOPRAZOLE 40MG TAB (PROTONIX) PO SCH (09:09)
[2023-03-24 09:11] VITALS: BP 122/54
[2023-03-24] MEDS: METOPROLOL TART 50 MG TAB PO SCH (09:12)
[2023-03-24 10:00] VITALS: BP 138/56
[2023-03-24 11:43] LABS: BLOOD UREA NITROGEN 24 MG/DL (9-23); CALCIUM LEVEL 9.7 MG/DL (8.3-10.6); CARBON DIOXIDE LEVEL 29 MMOL/L (20-31); CHLORIDE LEVEL 99 MMOL/L (98-107); CREATININE FOR GFR 0.76 MG/DL (0.55-1.30); GLOMERULAR FILTRATION RATE > 60.0 (>39); GLUCOSE, FASTING 390 MG/DL (74-106); POTASSIUM SERUM 4.4 MMOL/L (3.5-5.1); SODIUM LEVEL 137 MMOL/L (136-145)
[2023-03-24] MEDS ORDERED: XARE20TA PO (12:19)
[2023-03-24] MEDS ORDERED: METF10004 PO (12:19)
[2023-03-24] MEDS ORDERED: LEVO1TAB40 PO (12:19)
[2023-03-24] MEDS ORDERED: XARE15TA PO (12:19)
[2023-03-24] MEDS ORDERED: PRED50TA PO (12:58)
[2023-03-24] MEDS ORDERED: FERR324T21 PO (13:08)
== END 2023-03-24 16:35 | disposition home or self-care (01) | DRG 947 ==
LOC: EDBD 13:35 → M ED 13:35 → M ED INP 20:20 → M MSPAV 03-21
PROVIDERS: ADMIT Internal Medicine; ATTEND Internal Medicine
DX: R79.1 Abnormal coagulation profile (principal); J96.21 Acute and chronic respiratory failure with hypoxia; C34.90 Malignant neoplasm of unspecified part of unspecified bronchus or lung; I10 Essential (primary) hypertension; E78.5 Hyperlipidemia, unspecified; J44.9 Chronic obstructive pulmonary disease, unspecified; F41.9 Anxiety disorder, unspecified; M54.9 Dorsalgia, unspecified; F31.9 Bipolar disorder, unspecified; G40.909 Epilepsy, unspecified, not intractable, without status epilepticus; E87.5 Hyperkalemia; K21.9 Gastro-esophageal reflux disease without esophagitis; D64.9 Anemia, unspecified; G89.29 Other chronic pain; E83.42 Hypomagnesemia; E11.42 Type 2 diabetes mellitus with diabetic polyneuropathy; Z87.891 Personal history of nicotine dependence; Z20.822 Contact with and (suspected) exposure to COVID-19; Z79.01 Long term (current) use of anticoagulants; Z79.84 Long term (current) use of oral hypoglycemic drugs; Z79.899 Other long term (current) drug therapy; Z91.040 Latex allergy status; Z88.1 Allergy status to other antibiotic agents; Z88.8 Allergy status to other drugs, medicaments and biological substances; Z86.718 Personal history of other venous thrombosis and embolism; Z99.81 Dependence on supplemental oxygen

== ENCOUNTER → 2023-04-03 | Outpatient (CLI) | payer MEDICAID, MEDICARE, OTHER ==
[~2023-04-03] MED LIST changes: +FERR324T21 PO; +LEVO1TAB40 PO; +MAGN400T33 PO; +METF10004 PO; +NYST-38 PO; +PRED50TA PO; +XARE15TA PO; +XARE20TA PO
== END ==
LOC: M ONCR 08:43
PROVIDERS: ATTEND General Practice
DX: R91.8 Other nonspecific abnormal finding of lung field (principal); R07.89 Other chest pain; J44.9 Chronic obstructive pulmonary disease, unspecified; Z99.81 Dependence on supplemental oxygen; F17.210 Nicotine dependence, cigarettes, uncomplicated; R63.4 Abnormal weight loss; E11.9 Type 2 diabetes mellitus without complications; Z71.2 Person consulting for explanation of examination or test findings; Z79.51 Long term (current) use of inhaled steroids; Z79.84 Long term (current) use of oral hypoglycemic drugs; Z79.899 Other long term (current) drug therapy; Z99.3 Dependence on wheelchair; Z91.040 Latex allergy status; Z88.1 Allergy status to other antibiotic agents; Z88.8 Allergy status to other drugs, medicaments and biological substances; Z80.41 Family history of malignant neoplasm of ovary; Z80.0 Family history of malignant neoplasm of digestive organs; Z71.6 Tobacco abuse counseling
CPT/HCPCS: 99406; G0463

== ENCOUNTER 2023-04-17 13:28 | Outpatient (RCR) | payer MEDICARE, MEDICAID | END 2023-05-08 | LOC: M ONCR 13:28 | PROVIDERS: ATTEND General Practice | DX: C34.12 Malignant neoplasm of upper lobe, left bronchus or lung (principal) ==

== ENCOUNTER 2023-06-01 10:14 | Outpatient (RCR) | payer MEDICARE, MEDICAID ==
[~2023-06-01 10:14] MED LIST changes: +ATIV1TAB10 PO
[2023-06-01] MEDS ORDERED: XARE20TA PO (22:43)
[2023-06-01] MEDS ORDERED: CYCL5TAB PO (22:44)
[2023-06-03] MEDS ORDERED: PRED10TA2 PO (10:50)
[2023-06-03] MEDS ORDERED: MAGN400T33 PO (14:00)
[2023-06-03] MEDS ORDERED: VELT1POW PO (14:00)
[2023-06-03] MEDS ORDERED: PRED20TA PO (14:03)
[2023-06-03] MEDS ORDERED: IPRA0.00 INH (14:03)
== END 2023-06-08 ==
LOC: M ONCR 10:14
PROVIDERS: ATTEND General Practice
DX: C34.12 Malignant neoplasm of upper lobe, left bronchus or lung (principal)

== ENCOUNTER 2023-06-01 11:22 | Inpatient (IN) | payer MEDICAID, MEDICARE, OTHER ==
[~2023-06-01] VITALS: Ht 152.4 cm; Wt 66.8 kg
[2023-06-01] MEDS ORDERED: LORazepam 2 MG/ML 1ML VIAL IV STA (13:45)
[2023-06-01 13:49] LABS: BASO % 0.2 % (0.0-1.0); EOS # 0.2 10^3/uL (0.0-0.5); EOS % 1.8 % (0.0-3.0); HEMATOCRIT 33.2 % (36.0-47.0); HEMOGLOBIN 10.4 g/dl (12.0-15.5); LYMPH # 0.4 10^3/uL (1.5-5.0); LYMPH % 4.6 % (24.0-44.0); MEAN CORPUSCULAR HEMOGLOBIN 29.1 pg (27.0-33.0); MEAN CORPUSCULAR HGB CONC 31.3 g/dl (32.0-36.5); MEAN CORPUSCULAR VOLUME 92.7 fl (80.0-96.0); MONO # 0.6 10^3/uL (0.0-0.8); MONO % 6.3 % (2.0-8.0); NEUTROPHILS # 7.9 10^3/uL (1.5-8.5); NEUTROPHILS % 86.8 % (36.0-66.0); PLATELET COUNT, AUTOMATED 343 10^3/uL (150-450); RED BLOOD COUNT 3.58 10^6/uL (4.00-5.40); WHITE BLOOD COUNT 9.1 10^3/uL (4.0-10.0)
[2023-06-01] MEDS ORDERED: BOOSTRIX VACCINE (TETANUS/DIPHTH/ACEL. PERTUSSIS) 0.5ML SYR IM.IMMUN ONE (13:50)
[2023-06-01 14:03] LABS: INR 1.02; PROTHROMBIN TIME 13.6 SECONDS (12.5-14.5)
[2023-06-01 14:04] LABS: PARTIAL THROMBOPLASTIN TIME 33.3 SECONDS (24.8-34.2)
[2023-06-01 14:21] LABS: FREE T4 0.94 NG/DL (0.89-1.76); THYROID STIMULATING HORMONE 0.967 uIU/ML (0.55-4.78)
[2023-06-01 14:28] LABS: BLOOD UREA NITROGEN 12 MG/DL (9-23); CALCIUM LEVEL 9.3 MG/DL (8.3-10.6); CARBON DIOXIDE LEVEL 28 MMOL/L (20-31); CHLORIDE LEVEL 102 MMOL/L (98-107); CREATININE FOR GFR 0.35 MG/DL (0.55-1.30); GLOMERULAR FILTRATION RATE > 60.0 (>39); GLUCOSE, FASTING 208 MG/DL (74-106); MAGNESIUM LEVEL 0.8 MG/DL (1.8-2.4); POTASSIUM SERUM 4.7 MMOL/L (3.5-5.1); SODIUM LEVEL 138 MMOL/L (136-145)
[2023-06-01] MEDS ORDERED: MAG SULF 1GM/100ML (MAG RUN) 1 GM in IV 1 EA IV ONE (14:45)
[2023-06-01 17:00] LABS: RSV AMPLIFICATION NEGATIVE (NEGATIVE)
[2023-06-01] MEDS ORDERED: LORazepam 2 MG/ML 1ML VIAL IV PRN (17:25)
[2023-06-01] MEDS ORDERED: methylPREDNISolone 125MG 2ML VIAL IV ONE (17:25)
[2023-06-01] MEDS: MAG SULF 1GM/100ML (MAG RUN) 1 GM in IV 1 EA IV SCH ×4 (18:01→22:24)
[2023-06-01] MEDS: AZITHROMYCIN 250MG TABLET PO SCH (18:01)
[2023-06-01] MEDS ORDERED: ISOVUE-370 76% 100ML VIAL As Ordered ONE (18:24)
[2023-06-01 18:31] LABS: CK-MB VALUE MASS 1.1 NG/ML (<3.6)
[2023-06-01 18:41] LABS: MB/CK RELATIVE INDEX 4.07 (< OR =4)
[2023-06-01] MEDS ORDERED: MED REC IN PROGRESS XX SCH (19:55)
[2023-06-01] MEDS: INSULIN LISPRO (NovoLOG) PER UNIT SC SCH (21:00)
[2023-06-01] MEDS ORDERED: GLUCAGON INJ 1MG VIAL SC PRN (21:00)
[2023-06-01] MEDS: CYCLOBENZAPRINE 5MG TABLET PO SCH (21:00)
[2023-06-01] MEDS ORDERED: DEXTROSE 50% 50ML SYRINGE IV PRN (21:00)
[2023-06-01] MEDS ORDERED: METOPROLOL TART 50 MG TAB PO SCH (21:00)
[2023-06-01] MEDS ORDERED: GLUCOSE 4GM CHEW TABLET PO PRN (21:00)
[2023-06-01] MEDS: IPRATROPIUM 0.02% SOLN 0.5MG 2.5ML NEB NEB SCH (21:14)
[2023-06-01] MEDS: LEVALBUTEROL HFA 45MCG/ACT 15GM INHALER INH SCH (21:15)
[2023-06-01 22:05] VITALS: BP 170/88; TEMP 98.2; O2SAT 94
[2023-06-01] MEDS ORDERED: XARE20TA PO (22:43)
[2023-06-01] MEDS ORDERED: CYCL5TAB PO (22:44)
[2023-06-01] MEDS ORDERED: HOME MED LIST COMPLETE! XX SCH (22:45)
[2023-06-01] MEDS ORDERED: IPRATROPIUM 0.5MG/ALBUTEROL 2.5MG INH SOL UD 3ML (DUONEB) INH PRN (22:50)
[2023-06-02] MEDS: levETIRAcetam 250MG TABLET (KEPPRA) PO SCH ×3 (00:20→21:17)
[2023-06-02] MEDS: IPRATROPIUM 0.02% SOLN 0.5MG 2.5ML NEB NEB SCH ×2 (02:00→07:57)
[2023-06-02] MEDS: LEVALBUTEROL HFA 45MCG/ACT 15GM INHALER INH SCH ×2 (02:00→07:57)
[2023-06-02 06:00] VITALS: BP 96/66; TEMP 97.5; O2SAT 94
[2023-06-02 06:27] LABS: HEMATOCRIT 32.5 % (36.0-47.0); HEMOGLOBIN 10.3 g/dl (12.0-15.5); MEAN CORPUSCULAR HEMOGLOBIN 29.1 pg (27.0-33.0); MEAN CORPUSCULAR HGB CONC 31.7 g/dl (32.0-36.5); MEAN CORPUSCULAR VOLUME 91.8 fl (80.0-96.0); PLATELET COUNT, AUTOMATED 345 10^3/uL (150-450); RED BLOOD COUNT 3.54 10^6/uL (4.00-5.40); WHITE BLOOD COUNT 5.7 10^3/uL (4.0-10.0)
[2023-06-02 06:48] LABS: BLOOD UREA NITROGEN 11 MG/DL (9-23); CALCIUM LEVEL 9.6 MG/DL (8.3-10.6); CARBON DIOXIDE LEVEL 29 MMOL/L (20-31); CHLORIDE LEVEL 103 MMOL/L (98-107); CREATININE FOR GFR 0.35 MG/DL (0.55-1.30); GLOMERULAR FILTRATION RATE > 60.0 (>39); GLUCOSE, FASTING 214 MG/DL (74-106); MAGNESIUM LEVEL 1.7 MG/DL (1.8-2.4); POTASSIUM SERUM 4.9 MMOL/L (3.5-5.1); SODIUM LEVEL 139 MMOL/L (136-145)
[2023-06-02] MEDS: INSULIN LISPRO (NovoLOG) PER UNIT SC SCH ×4 (07:32→21:00)
[2023-06-02] MEDS: TIOTROPIUM INHALER/CAPSULE (SPIRIVA) INH SCH (07:55)
[2023-06-02] MEDS: ADVAIR HFA 115/21MCG INHALER INH SCH ×2 (07:56→20:21)
[2023-06-02 08:17] VITALS: BP 145/82
[2023-06-02] MEDS: methylPREDNISolone 40MG 1ML VIAL IV SCH ×2 (08:33→21:17)
[2023-06-02] MEDS: FERROUS GLUCONATE 324 MG TAB PO SCH (08:34)
[2023-06-02] MEDS: AZITHROMYCIN 250MG TABLET PO SCH (08:34)
[2023-06-02] MEDS: OMEPRAZOLE 20MG CAP PO SCH (08:34)
[2023-06-02] MEDS: MAGNESIUM OXIDE 400MG TAB (MAG-OX) PO SCH ×2 (08:34→21:19)
[2023-06-02] MEDS: SERTRALINE 100 MG TAB PO SCH (08:34)
[2023-06-02] MEDS: METOPROLOL TART 50 MG TAB PO SCH ×2 (08:34→21:18)
[2023-06-02] MEDS ORDERED: MAGNESIUM OXIDE 400MG TAB (MAG-OX) PO SCH (09:00)
[2023-06-02] MEDS ORDERED: IPRATROPIUM 0.5MG/ALBUTEROL 2.5MG INH SOL UD 3ML (DUONEB) NEB PRN (11:00)
[2023-06-02 14:00] VITALS: BP 132/82; TEMP 97.6; O2SAT 96
[2023-06-02] MEDS ORDERED: IPRATROPIUM 0.02% SOLN 0.5MG 2.5ML NEB INH SCH (14:00)
[2023-06-02] MEDS ORDERED: MORPHINE 2 MG/ML 1ML VIAL IV ONE (16:40)
[2023-06-02] MEDS ORDERED: RIVAROXABAN 20MG TAB (XARELTO) PO SCH (18:00)
[2023-06-02 20:00] VITALS: BP 117/66; TEMP 98.4; O2SAT 94
[2023-06-02] MEDS: IPRATROPIUM 0.5MG/ALBUTEROL 2.5MG INH SOL UD 3ML (DUONEB) NEB SCH (20:20)
[2023-06-02] MEDS ORDERED: SIMVASTATIN 20 MG TAB PO SCH (21:00)
[2023-06-02] MEDS: CYCLOBENZAPRINE 5MG TABLET PO SCH (21:22)
[2023-06-03] MEDS: ACETAMINOPHEN TAB 650MG DOSE (2X325MG) PO PRN ×2 (01:58→15:54)
[2023-06-03] MEDS: IPRATROPIUM 0.5MG/ALBUTEROL 2.5MG INH SOL UD 3ML (DUONEB) NEB SCH ×3 (02:00→12:40)
[2023-06-03 04:00] VITALS: BP 128/65; TEMP 98.4; O2SAT 95
[2023-06-03 05:53] LABS: BASO % 0.1 % (0.0-1.0); HEMATOCRIT 31.7 % (36.0-47.0); LYMPH # 0.1 10^3/uL (1.5-5.0); LYMPH % 1.3 % (24.0-44.0); MEAN CORPUSCULAR HGB CONC 31.5 g/dl (32.0-36.5); MEAN CORPUSCULAR VOLUME 91.9 fl (80.0-96.0); MONO # 0.4 10^3/uL (0.0-0.8); NEUTROPHILS # 10.2 10^3/uL (1.5-8.5); NEUTROPHILS % 94.2 % (36.0-66.0); PLATELET COUNT, AUTOMATED 363 10^3/uL (150-450); RED BLOOD COUNT 3.45 10^6/uL (4.00-5.40); WHITE BLOOD COUNT 10.9 10^3/uL (4.0-10.0)
[2023-06-03 06:14] LABS: BLOOD UREA NITROGEN 25 MG/DL (9-23); CALCIUM LEVEL 9.8 MG/DL (8.3-10.6); CARBON DIOXIDE LEVEL 29 MMOL/L (20-31); CHLORIDE LEVEL 99 MMOL/L (98-107); CREATININE FOR GFR 0.42 MG/DL (0.55-1.30); GLOMERULAR FILTRATION RATE > 60.0 (>39); GLUCOSE, FASTING 297 MG/DL (74-106); MAGNESIUM LEVEL 1.4 MG/DL (1.8-2.4); POTASSIUM SERUM 5.2 MMOL/L (3.5-5.1); SODIUM LEVEL 136 MMOL/L (136-145)
[2023-06-03] MEDS: ADVAIR HFA 115/21MCG INHALER INH SCH (07:40)
[2023-06-03] MEDS: TIOTROPIUM INHALER/CAPSULE (SPIRIVA) INH SCH (07:40)
[2023-06-03 08:43] VITALS: BP 130/64
[2023-06-03] MEDS: methylPREDNISolone 40MG 1ML VIAL IV SCH (08:43)
[2023-06-03] MEDS: INSULIN LISPRO (NovoLOG) PER UNIT SC SCH ×2 (08:44→12:05)
[2023-06-03] MEDS: OMEPRAZOLE 20MG CAP PO SCH (08:44)
[2023-06-03 08:45] VITALS: BP 130/64
[2023-06-03] MEDS: METOPROLOL TART 50 MG TAB PO SCH (08:45)
[2023-06-03] MEDS: AZITHROMYCIN 250MG TABLET PO SCH (08:46)
[2023-06-03] MEDS: MAGNESIUM OXIDE 400MG TAB (MAG-OX) PO SCH (08:46)
[2023-06-03] MEDS: FERROUS GLUCONATE 324 MG TAB PO SCH (08:46)
[2023-06-03] MEDS: SERTRALINE 100 MG TAB PO SCH (08:46)
[2023-06-03] MEDS: levETIRAcetam 250MG TABLET (KEPPRA) PO SCH (08:46)
[2023-06-03] MEDS: MAG SULF 1GM/100ML (MAG RUN) 1 GM in IV 1 EA IV SCH ×3 (08:47→09:44)
[2023-06-03] MEDS ORDERED: PATIROMER SORBITEX CALCIUM 8.4 GM POWDER PACKET (VELTASSA) PO ONE (10:00)
[2023-06-03] MEDS ORDERED: PRED10TA2 PO (10:50)
[2023-06-03 13:20] LABS: BLOOD UREA NITROGEN 23 MG/DL (9-23); CARBON DIOXIDE LEVEL 29 MMOL/L (20-31); CHLORIDE LEVEL 97 MMOL/L (98-107); CREATININE FOR GFR 0.36 MG/DL (0.55-1.30); GLOMERULAR FILTRATION RATE > 60.0 (>39); GLUCOSE, FASTING 192 MG/DL (74-106); MAGNESIUM LEVEL 2.3 MG/DL (1.8-2.4); POTASSIUM SERUM 5.2 MMOL/L (3.5-5.1); SODIUM LEVEL 136 MMOL/L (136-145)
[2023-06-03 14:00] VITALS: BP 160/66; TEMP 97.7; O2SAT 95
[2023-06-03] MEDS ORDERED: MAGN400T33 PO (14:00)
[2023-06-03] MEDS ORDERED: VELT1POW PO (14:00)
[2023-06-03] MEDS ORDERED: PRED20TA PO (14:03)
[2023-06-03] MEDS ORDERED: IPRA0.00 INH (14:03)
== END 2023-06-03 17:00 | disposition home health service (06) | DRG 191 ==
LOC: M ED 11:22 → M ED INP 17:20 → M MSPAV 22:05
PROVIDERS: ADMIT Internal Medicine; ATTEND Internal Medicine
DX: J44.1 Chronic obstructive pulmonary disease with (acute) exacerbation (principal); J96.11 Chronic respiratory failure with hypoxia; I47.20 Ventricular tachycardia, unspecified; C34.12 Malignant neoplasm of upper lobe, left bronchus or lung; R91.8 Other nonspecific abnormal finding of lung field; J44.9 Chronic obstructive pulmonary disease, unspecified; I10 Essential (primary) hypertension; E78.5 Hyperlipidemia, unspecified; F32.A Depression, unspecified; E11.9 Type 2 diabetes mellitus without complications; D50.9 Iron deficiency anemia, unspecified; E83.42 Hypomagnesemia; E11.42 Type 2 diabetes mellitus with diabetic polyneuropathy; G89.3 Neoplasm related pain (acute) (chronic); M54.9 Dorsalgia, unspecified; F17.210 Nicotine dependence, cigarettes, uncomplicated; E87.5 Hyperkalemia; K21.9 Gastro-esophageal reflux disease without esophagitis; N28.89 Other specified disorders of kidney and ureter; E83.52 Hypercalcemia; Z79.84 Long term (current) use of oral hypoglycemic drugs; Z79.899 Other long term (current) drug therapy; Z79.01 Long term (current) use of anticoagulants; Z91.040 Latex allergy status; Z88.1 Allergy status to other antibiotic agents; Z88.8 Allergy status to other drugs, medicaments and biological substances; Z99.81 Dependence on supplemental oxygen; Z86.718 Personal history of other venous thrombosis and embolism; Z92.3 Personal history of irradiation

== ENCOUNTER → 2023-06-17 | Outpatient (CLI) | payer MEDICAID, MEDICARE ==
[~2023-06-17] MED LIST changes: +VELT1POW PO
[2023-06-17 14:39] LABS: ALBUMIN 2.8 G/DL (3.2-5.2); ALKALINE PHOSPHATASE 126 U/L (46-116); ALT/SGPT 9 U/L (7.0-40); AST/SGOT 11 U/L (<34); BILIRUBIN,TOTAL 0.2 MG/DL (0.3-1.2); BLOOD UREA NITROGEN 14 MG/DL (9-23); CALCIUM LEVEL 9.1 MG/DL (8.3-10.6); CARBON DIOXIDE LEVEL 31 MMOL/L (20-31); CHLORIDE LEVEL 105 MMOL/L (98-107); CREATININE FOR GFR 0.44 MG/DL (0.55-1.30); GLOMERULAR FILTRATION RATE > 60.0 (>39); GLUCOSE, FASTING 79 MG/DL (74-106); POTASSIUM SERUM 4.4 MMOL/L (3.5-5.1); SODIUM LEVEL 143 MMOL/L (136-145); TOTAL PROTEIN 6.6 G/DL (5.7-8.2)
== END ==
LOC: M LAB 12:42
PROVIDERS: ATTEND Internal Medicine
DX: E83.42 Hypomagnesemia (principal)

== ENCOUNTER 2023-07-23 16:16 | Outpatient (CLI) | payer MEDICARE ==
[~2023-07-23] VITALS: Ht 152.4 cm; Wt 65.3 kg
[2023-07-23 16:15] VITALS: BP 137/52; O2SAT 99
[2023-07-23] MEDS: MAG SULF 1GM/100ML (MAG RUN) IV SCH ×4 (17:55→18:40)
== END 2023-07-23 20:19 | disposition home or self-care (01) ==
LOC: M MSPAV 16:36 → M INFU 20:19
PROVIDERS: ATTEND Internal Medicine Medical Oncology
DX: E83.42 Hypomagnesemia (principal); Z88.1 Allergy status to other antibiotic agents; Z91.040 Latex allergy status
CPT/HCPCS: 96365; 96366; J3475

== ENCOUNTER → 2023-08-25 | Outpatient (CLI) | payer MEDICARE, OTHER ==
[~2023-08-25] MED LIST changes: -CEFD300C41 PO; +CEFD300C42 PO; +FERR1TAB8 PO; +FURO20TA2 PO; +GLIP5TAB17 PO; -GLIP5TAB8 PO; +ISOVUE-370 76% 100ML VIAL As Ordered ONE; +MIRA3350 PO; +SENN-52 PO; +VITMTA PO
== END ==
LOC: M RAD 12:46
PROVIDERS: ATTEND General Practice
DX: C34.90 Malignant neoplasm of unspecified part of unspecified bronchus or lung (principal)
CPT/HCPCS: 71260; Q9967

== ENCOUNTER → 2023-09-01 | Outpatient (CLI) | payer MEDICARE ==
[~2023-09-01] MED LIST changes: -ISOVUE-370 76% 100ML VIAL As Ordered ONE
== END ==
LOC: M ONCR 12:20
PROVIDERS: ATTEND General Practice
DX: C34.12 Malignant neoplasm of upper lobe, left bronchus or lung (principal); F17.210 Nicotine dependence, cigarettes, uncomplicated; H44.9 Unspecified disorder of globe; Z71.2 Person consulting for explanation of examination or test findings; Z79.01 Long term (current) use of anticoagulants; Z79.84 Long term (current) use of oral hypoglycemic drugs; Z79.899 Other long term (current) drug therapy; Z91.040 Latex allergy status; Z88.1 Allergy status to other antibiotic agents; Z88.8 Allergy status to other drugs, medicaments and biological substances; Z92.3 Personal history of irradiation; Z99.81 Dependence on supplemental oxygen

== ENCOUNTER 2023-09-18 09:25 | Outpatient (CLI) | payer MEDICARE ==
[~2023-09-18] VITALS: Ht 152.4 cm; Wt 64.0 kg
[2023-09-18 09:56] VITALS: BP 141/65; O2SAT 97
[2023-09-18] MEDS: MAG SULF 1GM/100ML (MAG RUN) IV SCH ×4 (10:15→11:28)
[2023-09-18 12:32] VITALS: BP 133/61; O2SAT 95
== END 2023-09-18 12:35 ==
LOC: M INFU 09:25
PROVIDERS: ATTEND Internal Medicine Medical Oncology
DX: E83.42 Hypomagnesemia (principal); Z88.1 Allergy status to other antibiotic agents; Z88.8 Allergy status to other drugs, medicaments and biological substances
CPT/HCPCS: 96365; 96366; J3475

== ENCOUNTER 2023-09-21 18:17 | Emergency (ER) | payer MEDICARE ==
[~2023-09-21] VITALS: Ht 152.4 cm; Wt 64.1 kg
[2023-09-21 19:20] LABS: BASO % 0.4 % (0.0-1.0); EOS # 0.1 10^3/uL (0.0-0.5); EOS % 2.6 % (0.0-3.0); HEMATOCRIT 34.5 % (36.0-47.0); HEMOGLOBIN 10.8 g/dl (12.0-15.5); LYMPH # 0.7 10^3/uL (1.5-5.0); LYMPH % 13.5 % (24.0-44.0); MEAN CORPUSCULAR HEMOGLOBIN 29.6 pg (27.0-33.0); MEAN CORPUSCULAR HGB CONC 31.3 g/dl (32.0-36.5); MEAN CORPUSCULAR VOLUME 94.5 fl (80.0-96.0); MONO # 0.5 10^3/uL (0.0-0.8); MONO % 9.5 % (2.0-8.0); NEUTROPHILS # 3.7 10^3/uL (1.5-8.5); NEUTROPHILS % 73.6 % (36.0-66.0); PLATELET COUNT, AUTOMATED 264 10^3/uL (150-450); RED BLOOD COUNT 3.65 10^6/uL (4.00-5.40); WHITE BLOOD COUNT 5.1 10^3/uL (4.0-10.0)
[2023-09-21 19:49] LABS: RSV AMPLIFICATION NEGATIVE (NEGATIVE)
[2023-09-21 20:13] LABS: ALBUMIN 3.4 G/DL (3.2-5.2); ALKALINE PHOSPHATASE 86 U/L (46-116); ALT/SGPT 9 U/L (7.0-40); AST/SGOT 17 U/L (<34); BILIRUBIN,DIRECT < 0.1 MG/DL (<0.4); BILIRUBIN,TOTAL 0.2 MG/DL (0.3-1.2); BLOOD UREA NITROGEN 15 MG/DL (9-23); CALCIUM LEVEL 9.5 MG/DL (8.3-10.6); CARBON DIOXIDE LEVEL 35 MMOL/L (20-31); CHLORIDE LEVEL 101 MMOL/L (98-107); CREATININE FOR GFR 0.51 MG/DL (0.55-1.30); GLOMERULAR FILTRATION RATE > 60.0 (>39); GLUCOSE, FASTING 113 MG/DL (74-106); POTASSIUM SERUM 4.2 MMOL/L (3.5-5.1); SODIUM LEVEL 145 MMOL/L (136-145); TOTAL PROTEIN 7.2 G/DL (5.7-8.2)
[2023-09-21] MEDS: IPRATROPIUM 0.5MG/ALBUTEROL 2.5MG INH SOL UD 3ML (DUONEB) NEB PRN (21:20)
[2023-09-21] MEDS ORDERED: FURO40TA2 PO (21:36)
[2023-09-21] MEDS ORDERED: MAGN400C2 PO (21:38)
[2023-09-21] MEDS ORDERED: METF10004 PO (21:43)
[2023-09-21] MEDS ORDERED: methylPREDNISolone 125MG 2ML VIAL IV ONE (21:45)
[2023-09-21] MEDS ORDERED: HOME MED LIST COMPLETE! XX SCH (21:45)
[2023-09-21 22:30] VITALS: BP 158/78; TEMP 98.8; O2SAT 98
[2023-09-21] MEDS ORDERED: CEFUROXIME 500 MG TAB PO STA (22:36)
[2023-09-21] MEDS ORDERED: CEFU50TA PO (22:40)
[2023-09-21] MEDS ORDERED: PRED20TA PO (22:40)
== END 2023-09-21 23:52 | disposition home or self-care (01) ==
LOC: M ED 18:17
DX: J44.1 Chronic obstructive pulmonary disease with (acute) exacerbation (principal); E11.9 Type 2 diabetes mellitus without complications; I10 Essential (primary) hypertension; R56.9 Unspecified convulsions; E78.5 Hyperlipidemia, unspecified; Z79.01 Long term (current) use of anticoagulants; Z88.8 Allergy status to other drugs, medicaments and biological substances; Z91.040 Latex allergy status; Z79.51 Long term (current) use of inhaled steroids; Z79.899 Other long term (current) drug therapy; Z79.84 Long term (current) use of oral hypoglycemic drugs
CPT/HCPCS: 71045; 80048; 80076; 83880; 85025; 87486; 87581; 87631; 87633; 87798; 93005; 93041; 94640; 94760; 96374; 99284; J2930

== ENCOUNTER → 2023-11-06 | Outpatient (CLI) | payer MEDICARE ==
[~2023-11-06] MED LIST changes: +CEFD1CAP9 PO; -CEFD300C42 PO; +CEFU50TA PO; +MAGN400C2 PO
[2023-11-06 17:34] LABS: BLOOD UREA NITROGEN 20 MG/DL (9-23); CALCIUM LEVEL 9.5 MG/DL (8.3-10.6); CARBON DIOXIDE LEVEL 37 MMOL/L (20-31); CHLORIDE LEVEL 99 MMOL/L (98-107); GLOMERULAR FILTRATION RATE > 60.0 (>39); GLUCOSE, FASTING 79 MG/DL (74-106); MAGNESIUM LEVEL 1.1 MG/DL (1.8-2.4); POTASSIUM SERUM 4.5 MMOL/L (3.5-5.1); SODIUM LEVEL 141 MMOL/L (136-145)
== END ==
LOC: M LAB 16:27
PROVIDERS: ATTEND Family Medicine
DX: E61.2 Magnesium deficiency (principal)

== ENCOUNTER 2023-11-12 15:05 | Inpatient (IN) | payer MEDICARE ==
[~2023-11-12] VITALS: Ht 152.4 cm; Wt 66.3 kg
[2023-11-12 15:34] LABS: VENOUS BASE EXCESS 6.8 (-2.0-2.0); VENOUS HCO3 36.5 MMOL/L (23.0-27.0); VENOUS O2 SATURATION 39.1 % (60.0-80.0); VENOUS PARTIAL PRESSURE CO2 84.8 mmHg (38.0-50.0); VENOUS PARTIAL PRESSURE O2 27.3 mmHg (30.0-50.0); VENOUS PH 7.252 UNITS (7.330-7.430); VENOUS STANDARD HCO3 29.4 MMOL/L; VENOUS TOTAL CO2 39.1 MMOL/L (24.0-28.0)
[2023-11-12 15:36] LABS: BASO % 0.4 % (0.0-1.0); EOS # 0.1 10^3/uL (0.0-0.5); EOS % 1.7 % (0.0-3.0); HEMATOCRIT 35.4 % (36.0-47.0); HEMOGLOBIN 10.6 g/dl (12.0-15.5); LYMPH # 0.5 10^3/uL (1.5-5.0); LYMPH % 6.8 % (24.0-44.0); MEAN CORPUSCULAR HEMOGLOBIN 27.3 pg (27.0-33.0); MEAN CORPUSCULAR HGB CONC 29.9 g/dl (32.0-36.5); MEAN CORPUSCULAR VOLUME 91.2 fl (80.0-96.0); MONO # 0.5 10^3/uL (0.0-0.8); MONO % 6.6 % (2.0-8.0); NEUTROPHILS # 6.3 10^3/uL (1.5-8.5); NEUTROPHILS % 84.4 % (36.0-66.0); PLATELET COUNT, AUTOMATED 328 10^3/uL (150-450); RED BLOOD COUNT 3.88 10^6/uL (4.00-5.40); WHITE BLOOD COUNT 7.5 10^3/uL (4.0-10.0)
[2023-11-12] MEDS ORDERED: dexAMETHasone 20MG/5ML VIAL IV ONE (15:40)
[2023-11-12 16:11] LABS: ABG BASE EXCESS 6.4 (-2.0-2.0); ABG HCO3 33.5 MMOL/L (22.0-26.0); ABG O2 SATURATION 88.6 % (95.0-99.0); ABG PARTIAL PRESSURE O2 59.3 mmHg (75.0-100.0); ABG STANDARD HCO3 30.1 MMOL/L. (22.0-26.0); ABG TOTAL CO2 35.4 MMOL/L (23.0-31.0); ABG pH (ARTERIAL) 7.352 UNITS (7.350-7.450)
[2023-11-12 16:13] LABS: ABG PARTIAL PRESSURE CO2 61.8 mmHg (35.0-45.0)
[2023-11-12] MEDS: IPRATROPIUM 0.5MG/ALBUTEROL 2.5MG INH SOL UD 3ML (DUONEB) NEB SCH ×2 (16:43→23:34)
[2023-11-12] MEDS ORDERED: ALBUTEROL SULFATE 2.5MG/0.5ML INH NEB SOLN NEB ONE (17:30)
[2023-11-12] MEDS ORDERED: IPRATROPIUM 0.5MG/ALBUTEROL 2.5MG INH SOL UD 3ML (DUONEB) NEB ONE (17:30)
[2023-11-12] MEDS ORDERED: MOM 30ML SUSPENSION UDC PO PRN (17:40)
[2023-11-12] MEDS ORDERED: MAALOX 30 ML SUSP *UDC PO PRN (17:40)
[2023-11-12] MEDS ORDERED: ACETAMINOPHEN TAB 650MG DOSE (2X325MG) PO PRN (17:40)
[2023-11-12 17:43] LABS: ALBUMIN 2.8 G/DL (3.2-5.2); ALKALINE PHOSPHATASE 84 U/L (46-116); ALT/SGPT < 9 U/L (7.0-40); AST/SGOT 15 U/L (<34); BILIRUBIN,DIRECT < 0.1 MG/DL (<0.4); BILIRUBIN,TOTAL 0.2 MG/DL (0.3-1.2); BLOOD UREA NITROGEN 12 MG/DL (9-23); CALCIUM LEVEL 9.5 MG/DL (8.3-10.6); CARBON DIOXIDE LEVEL 33 MMOL/L (20-31); CHLORIDE LEVEL 101 MMOL/L (98-107); CK-MB VALUE MASS < 1.0 NG/ML (<3.6); CPK CREATINE PHOSPHOKINASE 33 U/L (34-145); CREATININE FOR GFR 0.39 MG/DL (0.55-1.30); GLOMERULAR FILTRATION RATE > 60.0 (>39); GLUCOSE, FASTING 92 MG/DL (74-106); MB/CK RELATIVE INDEX 3.03 (< OR =4); POTASSIUM SERUM 4.6 MMOL/L (3.5-5.1); SODIUM LEVEL 141 MMOL/L (136-145); THYROID STIMULATING HORMONE 1.481 uIU/ML (0.55-4.78); THYROXINE (T4) 8.6 UG/DL (4.5-10.9); TOTAL PROTEIN 6.9 G/DL (5.7-8.2)
[2023-11-12] MEDS ORDERED: MAG SULF 1GM/100ML (MAG RUN) 1 GM in IV 1 EA IV ONE (18:35)
[2023-11-12] MEDS ORDERED: DEXTROSE 50% 50ML SYRINGE IV PRN (18:45)
[2023-11-12] MEDS ORDERED: GLUCAGON INJ 1MG VIAL SC PRN (18:45)
[2023-11-12] MEDS ORDERED: GLUCOSE 4GM CHEW TABLET PO PRN (18:45)
[2023-11-12] MEDS ORDERED: MED REC IN PROGRESS XX SCH (18:55)
[2023-11-12] MEDS ORDERED: HOME MED LIST COMPLETE! XX SCH (19:55)
[2023-11-12] MEDS: FORMOTEROL FUMARATE 20 MCG/2 ML INHALATION SOLUTION (PERFOROMIST) INH SCH (20:00)
[2023-11-12] MEDS: BUDESONIDE 0.25 MG/2 ML INHALATION SUSPENSION INH SCH (20:23)
[2023-11-12] MEDS: INSULIN LISPRO (NovoLOG) PER UNIT SC SCH (21:00)
[2023-11-12 21:07] VITALS: BP 131/64; TEMP 97.5; O2SAT 90
[2023-11-12] MEDS: DOXYCYCLINE HYCLATE 100MG TABLET PO SCH (21:42)
[2023-11-12] MEDS: MAG SULF 1GM/100ML (MAG RUN) 1 GM in IV 1 EA IV SCH ×2 (21:42→23:03)
[2023-11-12] MEDS: RIVAROXABAN 20MG TAB (XARELTO) PO SCH (21:42)
[2023-11-12 23:03] VITALS: BP 154/68; TEMP 97.2; O2SAT 91
[2023-11-13] VITALS (7 sets, daily range): BP systolic 129–182; BP diastolic 62–88; TEMP 97–97.7; O2SAT 91–98
[2023-11-13] MEDS: methylPREDNISolone 125MG 2ML VIAL IV SCH ×4 (00:12→23:26)
[2023-11-13] MEDS: MAG SULF 1GM/100ML (MAG RUN) 1 GM in IV 1 EA IV SCH ×3 (00:13→02:52)
[2023-11-13 05:43] LABS: ABG BASE EXCESS 5.2 (-2.0-2.0); ABG HCO3 32.6 MMOL/L (22.0-26.0); ABG O2 SATURATION 91.2 % (95.0-99.0); ABG PARTIAL PRESSURE O2 69.7 mmHg (75.0-100.0); ABG STANDARD HCO3 29.1 MMOL/L. (22.0-26.0); ABG TOTAL CO2 34.6 MMOL/L (23.0-31.0); ABG pH (ARTERIAL) 7.328 UNITS (7.350-7.450)
[2023-11-13 05:44] LABS: ABG PARTIAL PRESSURE CO2 63.6 mmHg (35.0-45.0)
[2023-11-13 05:57] LABS: BLOOD UREA NITROGEN 16 MG/DL (9-23); CALCIUM LEVEL 9.2 MG/DL (8.3-10.6); CARBON DIOXIDE LEVEL 33 MMOL/L (20-31); CHLORIDE LEVEL 99 MMOL/L (98-107); CREATININE FOR GFR 0.42 MG/DL (0.55-1.30); GLOMERULAR FILTRATION RATE > 60.0 (>39); GLUCOSE, FASTING 331 MG/DL (74-106); MAGNESIUM LEVEL 2.6 MG/DL (1.8-2.4); POTASSIUM SERUM 4.7 MMOL/L (3.5-5.1); SODIUM LEVEL 135 MMOL/L (136-145)
[2023-11-13] MEDS ORDERED: FUROSEMIDE 40 MG TAB PO PRN (07:15)
[2023-11-13] MEDS: IPRATROPIUM 0.5MG/ALBUTEROL 2.5MG INH SOL UD 3ML (DUONEB) NEB SCH ×2 (07:22→15:29)
[2023-11-13] MEDS: FORMOTEROL FUMARATE 20 MCG/2 ML INHALATION SOLUTION (PERFOROMIST) INH SCH ×2 (07:22→20:03)
[2023-11-13] MEDS: BUDESONIDE 0.25 MG/2 ML INHALATION SUSPENSION INH SCH ×2 (07:22→20:03)
[2023-11-13] MEDS: INSULIN LISPRO (NovoLOG) PER UNIT SC SCH ×4 (07:27→20:26)
[2023-11-13] MEDS: MULTIVITAMINS/MINERALS THERAP 1 TAB PO SCH (09:26)
[2023-11-13] MEDS: SERTRALINE 100 MG TAB PO SCH (09:26)
[2023-11-13] MEDS: DOXYCYCLINE HYCLATE 100MG TABLET PO SCH ×2 (09:27→20:22)
[2023-11-13] MEDS: VITAMIN D 1,000 INTERNATIONAL UNITS TABLET PO SCH (09:27)
[2023-11-13] MEDS: METOPROLOL TART 50 MG TAB PO SCH ×2 (09:27→20:22)
[2023-11-13] MEDS: RIVAROXABAN 20MG TAB (XARELTO) PO SCH (18:10)
[2023-11-13] MEDS ORDERED: SIMVASTATIN 20 MG TAB PO SCH (21:00)
[2023-11-14] VITALS (7 sets, daily range): BP systolic 152–172; BP diastolic 66–80; TEMP 96.8–98.1; O2SAT 92–98
[2023-11-14] MEDS: IPRATROPIUM 0.5MG/ALBUTEROL 2.5MG INH SOL UD 3ML (DUONEB) NEB SCH ×2 (00:25→07:09)
[2023-11-14 06:23] LABS: BLOOD UREA NITROGEN 26 MG/DL (9-23); CALCIUM LEVEL 9.6 MG/DL (8.3-10.6); CARBON DIOXIDE LEVEL 34 MMOL/L (20-31); CHLORIDE LEVEL 103 MMOL/L (98-107); GLOMERULAR FILTRATION RATE > 60.0 (>39); GLUCOSE, FASTING 293 MG/DL (74-106); MAGNESIUM LEVEL 1.4 MG/DL (1.8-2.4); SODIUM LEVEL 140 MMOL/L (136-145)
[2023-11-14] MEDS: BUDESONIDE 0.25 MG/2 ML INHALATION SUSPENSION INH SCH (07:09)
[2023-11-14] MEDS: FORMOTEROL FUMARATE 20 MCG/2 ML INHALATION SOLUTION (PERFOROMIST) INH SCH (07:09)
[2023-11-14] MEDS ORDERED: predniSONE 20 MG TAB PO SCH (09:00)
[2023-11-14] MEDS: SERTRALINE 100 MG TAB PO SCH (09:49)
[2023-11-14] MEDS: MULTIVITAMINS/MINERALS THERAP 1 TAB PO SCH (09:49)
[2023-11-14] MEDS: DOXYCYCLINE HYCLATE 100MG TABLET PO SCH (09:49)
[2023-11-14] MEDS: VITAMIN D 1,000 INTERNATIONAL UNITS TABLET PO SCH (09:49)
[2023-11-14] MEDS: METOPROLOL TART 50 MG TAB PO SCH (09:50)
[2023-11-14] MEDS: INSULIN LISPRO (NovoLOG) PER UNIT SC SCH ×2 (09:58→12:00)
[2023-11-14] MEDS ORDERED: DOXY100T PO (11:09)
[2023-11-14] MEDS ORDERED: PRED10TA2 PO (11:09)
[2023-11-14] MEDS ORDERED: MAGNESIUM OXIDE 400MG TAB (MAG-OX) PO ONE (13:05)
== END 2023-11-14 15:06 | disposition home health service (06) | DRG 189 ==
LOC: M ED 15:05 → M ED INP 17:39 → M PCU 21:07
PROVIDERS: ADMIT Student in an Organized Health Care Education/Training Program; ATTEND Student in an Organized Health Care Education/Training Program
DX: J96.21 Acute and chronic respiratory failure with hypoxia (principal); J84.9 Interstitial pulmonary disease, unspecified; J44.1 Chronic obstructive pulmonary disease with (acute) exacerbation; E87.29 Other acidosis; C34.12 Malignant neoplasm of upper lobe, left bronchus or lung; J96.22 Acute and chronic respiratory failure with hypercapnia; E11.42 Type 2 diabetes mellitus with diabetic polyneuropathy; E11.65 Type 2 diabetes mellitus with hyperglycemia; I10 Essential (primary) hypertension; G89.29 Other chronic pain; M54.9 Dorsalgia, unspecified; N28.89 Other specified disorders of kidney and ureter; F40.240 Claustrophobia; E83.42 Hypomagnesemia; R53.81 Other malaise; Z79.84 Long term (current) use of oral hypoglycemic drugs; Z79.01 Long term (current) use of anticoagulants; Z79.899 Other long term (current) drug therapy; Z91.040 Latex allergy status; Z88.1 Allergy status to other antibiotic agents; Z88.8 Allergy status to other drugs, medicaments and biological substances; Z92.3 Personal history of irradiation; Z99.81 Dependence on supplemental oxygen; Z86.718 Personal history of other venous thrombosis and embolism; Z87.891 Personal history of nicotine dependence

== ENCOUNTER 2023-12-04 16:47 | Inpatient (IN) | payer MEDICARE, OTHER ==
[~2023-12-04] VITALS: Ht 152.4 cm; Wt 66.5 kg
[2023-12-04] MEDS: levETIRAcetam 250MG TABLET (KEPPRA) PO SCH (03:17)
[2023-12-04] MEDS: ACETAMINOPHEN 500 MG TAB PO SCH (03:18)
[2023-12-04] MEDS: METOPROLOL TART 50 MG TAB PO SCH (03:18)
[~2023-12-04 16:47] MED LIST changes: +DOXY100T PO; -HYDR-3911 PO; -HYDR50TA PO; +HYDR50TA46 PO; +HYDR50TA47 PO
[2023-12-04] MEDS ORDERED: methylPREDNISolone 125MG 2ML VIAL IV ONE (17:05)
[2023-12-04] MEDS: IPRATROPIUM 0.5MG/ALBUTEROL 2.5MG INH SOL UD 3ML (DUONEB) NEB PRN ×3 (17:49→18:07)
[2023-12-04 18:01] LABS: ABG BASE EXCESS 7.6 (-2.0-2.0); ABG HCO3 33.7 MMOL/L (22.0-26.0); ABG O2 SATURATION 91.9 % (95.0-99.0); ABG PARTIAL PRESSURE CO2 55.5 mmHg (35.0-45.0); ABG PARTIAL PRESSURE O2 65.9 mmHg (75.0-100.0); ABG STANDARD HCO3 31.3 MMOL/L. (22.0-26.0); ABG TOTAL CO2 35.4 MMOL/L (23.0-31.0); ABG pH (ARTERIAL) 7.401 UNITS (7.350-7.450)
[2023-12-04] MEDS ORDERED: LEVE500T5 PO (18:03)
[2023-12-04 18:21] LABS: BASO % 0.2 % (0.0-1.0); EOS # 0.1 10^3/uL (0.0-0.5); HEMATOCRIT 33.9 % (36.0-47.0); HEMOGLOBIN 10.4 g/dl (12.0-15.5); LYMPH # 0.6 10^3/uL (1.5-5.0); LYMPH % 9.3 % (24.0-44.0); MEAN CORPUSCULAR HEMOGLOBIN 27.5 pg (27.0-33.0); MEAN CORPUSCULAR HGB CONC 30.7 g/dl (32.0-36.5); MEAN CORPUSCULAR VOLUME 89.7 fl (80.0-96.0); MONO # 0.5 10^3/uL (0.0-0.8); MONO % 8.2 % (2.0-8.0); NEUTROPHILS # 5.3 10^3/uL (1.5-8.5); PLATELET COUNT, AUTOMATED 304 10^3/uL (150-450); RED BLOOD COUNT 3.78 10^6/uL (4.00-5.40); WHITE BLOOD COUNT 6.6 10^3/uL (4.0-10.0)
[2023-12-04 18:32] LABS: CPK CREATINE PHOSPHOKINASE 19 U/L (34-145)
[2023-12-04 18:33] LABS: ALKALINE PHOSPHATASE 91 U/L (46-116); ALT/SGPT 11 U/L (7.0-40); AST/SGOT 16 U/L (<34); BILIRUBIN,DIRECT < 0.1 MG/DL (<0.4); BILIRUBIN,TOTAL 0.3 MG/DL (0.3-1.2); BLOOD UREA NITROGEN 14 MG/DL (9-23); CALCIUM LEVEL 9.9 MG/DL (8.3-10.6); CARBON DIOXIDE LEVEL 32 MMOL/L (20-31); CHLORIDE LEVEL 102 MMOL/L (98-107); CK-MB VALUE MASS < 1.0 NG/ML (<3.6); CREATININE FOR GFR 0.45 MG/DL (0.55-1.30); GLOMERULAR FILTRATION RATE > 60.0 (>39); GLUCOSE, FASTING 88 MG/DL (74-106); MB/CK RELATIVE INDEX 5.26 (< OR =4); POTASSIUM SERUM 4.6 MMOL/L (3.5-5.1); SODIUM LEVEL 135 MMOL/L (136-145); TOTAL PROTEIN 7.6 G/DL (5.7-8.2)
[2023-12-04 18:35] LABS: THYROID STIMULATING HORMONE 1.144 uIU/ML (0.55-4.78)
[2023-12-04] MEDS ORDERED: ISOVUE-370 76% 100ML VIAL As Ordered ONE ×2 (19:35→20:23)
[2023-12-04] MEDS ORDERED: LORazepam 2 MG/ML 1ML VIAL IV STA (20:15)
[2023-12-04] MEDS ORDERED: ALBUTEROL SULFATE 2.5MG/0.5ML INH NEB SOLN NEB ONE ×2 (20:50→23:00)
[2023-12-04 21:00] LABS: CK-MB VALUE MASS < 1.0 NG/ML (<3.6)
[2023-12-04 21:02] LABS: CPK CREATINE PHOSPHOKINASE 23 U/L (34-145); MB/CK RELATIVE INDEX 4.34 (< OR =4)
[2023-12-04] MEDS ORDERED: IPRATROPIUM 0.5MG/ALBUTEROL 2.5MG INH SOL UD 3ML (DUONEB) NEB ONE (22:20)
[2023-12-04 22:34] LABS: VENOUS BASE EXCESS 1.6 (-2.0-2.0); VENOUS HCO3 28.7 MMOL/L (23.0-27.0); VENOUS O2 SATURATION 91.4 % (60.0-80.0); VENOUS PARTIAL PRESSURE CO2 57.7 mmHg (38.0-50.0); VENOUS PARTIAL PRESSURE O2 68.3 mmHg (30.0-50.0); VENOUS PH 7.315 UNITS (7.330-7.430); VENOUS STANDARD HCO3 25.8 MMOL/L; VENOUS TOTAL CO2 30.5 MMOL/L (24.0-28.0)
[2023-12-04] MEDS ORDERED: MAG SULF 1GM/100ML (MAG RUN) 1 GM in IV 1 EA IV ONE (23:00)
[2023-12-04] MEDS ORDERED: NS 500 ML IV ONE (23:00)
[2023-12-04] MEDS ORDERED: DEXTROSE 50% 50ML SYRINGE IV PRN (23:05)
[2023-12-04] MEDS ORDERED: GLUCOSE 4GM CHEW TABLET PO PRN (23:05)
[2023-12-04] MEDS ORDERED: GLUCAGON INJ 1MG VIAL SC PRN (23:05)
[2023-12-04] MEDS ORDERED: ALBUTEROL SULFATE 2.5MG/0.5ML INH NEB SOLN NEB PRN (23:05)
[2023-12-04] MEDS: methylPREDNISolone 40MG 1ML VIAL IV SCH (23:17)
[2023-12-04] MEDS ORDERED: FLUT1BLS16 PO (23:36)
[2023-12-04] MEDS ORDERED: MULTTAB61 PO (23:36)
[2023-12-04] MEDS ORDERED: HOME MED LIST COMPLETE! XX SCH (23:40)
[2023-12-05] VITALS (24 sets, daily range): BP systolic 121–166; BP diastolic 58–96; TEMP 97.4–98.3; O2SAT 85–96
[2023-12-05] MEDS: DOXYCYCLINE HYCLATE 100MG TABLET PO SCH ×3 (00:22→21:28)
[2023-12-05] MEDS: IPRATROPIUM 0.5MG/ALBUTEROL 2.5MG INH SOL UD 3ML (DUONEB) NEB SCH ×4 (01:21→19:01)
[2023-12-05] MEDS: MAG SULF 1GM/100ML (MAG RUN) 1 GM in IV 1 EA IV SCH ×2 (02:13→03:08)
[2023-12-05 05:35] LABS: BLOOD UREA NITROGEN 17 MG/DL (9-23); CARBON DIOXIDE LEVEL 33 MMOL/L (20-31); CHLORIDE LEVEL 102 MMOL/L (98-107); GLOMERULAR FILTRATION RATE > 60.0 (>39); GLUCOSE, FASTING 291 MG/DL (74-106); POTASSIUM SERUM 4.7 MMOL/L (3.5-5.1); SODIUM LEVEL 140 MMOL/L (136-145)
[2023-12-05 05:40] LABS: ABG BASE EXCESS 4.7 (-2.0-2.0); ABG HCO3 31.3 MMOL/L (22.0-26.0); ABG O2 SATURATION 94.4 % (95.0-99.0); ABG PARTIAL PRESSURE O2 79.9 mmHg (75.0-100.0); ABG STANDARD HCO3 28.7 MMOL/L. (22.0-26.0); ABG pH (ARTERIAL) 7.357 UNITS (7.350-7.450)
[2023-12-05] MEDS: methylPREDNISolone 40MG 1ML VIAL IV SCH ×3 (06:05→17:57)
[2023-12-05] MEDS: INSULIN LISPRO (NovoLOG) PER UNIT SC SCH ×4 (06:06→17:58)
[2023-12-05] MEDS: ADVAIR HFA 115/21MCG INHALER INH SCH ×2 (07:32→19:01)
[2023-12-05] MEDS: levETIRAcetam 250MG TABLET (KEPPRA) PO SCH ×2 (08:19→21:27)
[2023-12-05] MEDS: PANTOPRAZOLE 40MG TAB (PROTONIX) PO SCH (08:20)
[2023-12-05] MEDS: METOPROLOL TART 50 MG TAB PO SCH ×2 (08:20→21:28)
[2023-12-05] MEDS: FERROUS SULFATE 325MG TAB PO SCH (08:20)
[2023-12-05] MEDS: SERTRALINE 100 MG TAB PO SCH (08:20)
[2023-12-05] MEDS ORDERED: RIVAROXABAN 20MG TAB (XARELTO) PO SCH (18:00)
[2023-12-05] MEDS ORDERED: SIMVASTATIN 20 MG TAB PO SCH (21:00)
[2023-12-05] MEDS ORDERED: INSULIN LISPRO (NovoLOG) PER UNIT SC SCH (21:00)
[2023-12-05] MEDS: ACETAMINOPHEN 500 MG TAB PO SCH (21:28)
[2023-12-05] MEDS: MAGNESIUM OXIDE 400MG TAB (MAG-OX) PO SCH (21:28)
[2023-12-06] VITALS: BP 168/78; TEMP 97.6; O2SAT 97
[2023-12-06] MEDS: methylPREDNISolone 40MG 1ML VIAL IV SCH ×2 (00:40→06:11)
[2023-12-06] MEDS: IPRATROPIUM 0.5MG/ALBUTEROL 2.5MG INH SOL UD 3ML (DUONEB) NEB SCH ×3 (01:20→12:32)
[2023-12-06 04:28] VITALS: BP 162/70; TEMP 97.5; O2SAT 92
[2023-12-06 05:00] LABS: HEMOGLOBIN 9.4 g/dl (12.0-15.5); MEAN CORPUSCULAR HEMOGLOBIN 26.8 pg (27.0-33.0); MEAN CORPUSCULAR HGB CONC 30.3 g/dl (32.0-36.5); MEAN CORPUSCULAR VOLUME 88.3 fl (80.0-96.0); PLATELET COUNT, AUTOMATED 328 10^3/uL (150-450); RED BLOOD COUNT 3.51 10^6/uL (4.00-5.40); WHITE BLOOD COUNT 6.8 10^3/uL (4.0-10.0)
[2023-12-06 05:22] LABS: BLOOD UREA NITROGEN 20 MG/DL (9-23); CARBON DIOXIDE LEVEL 33 MMOL/L (20-31); CHLORIDE LEVEL 102 MMOL/L (98-107); CREATININE FOR GFR 0.45 MG/DL (0.55-1.30); GLOMERULAR FILTRATION RATE > 60.0 (>39); GLUCOSE, FASTING 202 MG/DL (74-106); POTASSIUM SERUM 4.9 MMOL/L (3.5-5.1); SODIUM LEVEL 139 MMOL/L (136-145)
[2023-12-06] MEDS: ADVAIR HFA 115/21MCG INHALER INH SCH (07:25)
[2023-12-06 08:00] VITALS: BP 182/79; TEMP 97.6; O2SAT 89
[2023-12-06] MEDS ORDERED: TIOTROPIUM INHALER/CAPSULE (SPIRIVA) INH SCH (08:00)
[2023-12-06] MEDS: METOPROLOL TART 50 MG TAB PO SCH (08:17)
[2023-12-06] MEDS: PANTOPRAZOLE 40MG TAB (PROTONIX) PO SCH (08:17)
[2023-12-06] MEDS: INSULIN LISPRO (NovoLOG) PER UNIT SC SCH ×2 (08:17→11:58)
[2023-12-06] MEDS: DOXYCYCLINE HYCLATE 100MG TABLET PO SCH (08:17)
[2023-12-06] MEDS: SERTRALINE 100 MG TAB PO SCH (08:17)
[2023-12-06 08:18] VITALS: BP 180/79
[2023-12-06] MEDS: FERROUS SULFATE 325MG TAB PO SCH (08:18)
[2023-12-06] MEDS: MAGNESIUM OXIDE 400MG TAB (MAG-OX) PO SCH (08:18)
[2023-12-06] MEDS: levETIRAcetam 250MG TABLET (KEPPRA) PO SCH (08:18)
[2023-12-06] MEDS ORDERED: LEVEMIR (INSULIN DETEMIR) 1 UNITS/0.01ML SC SCH (09:00)
[2023-12-06] MEDS ORDERED: VITAMIN D 1,000 INTERNATIONAL UNITS TABLET PO SCH (09:00)
[2023-12-06] MEDS ORDERED: MULTIVITAMINS/MINERALS THERAP 1 TAB PO SCH (09:00)
[2023-12-06] MEDS ORDERED: PRED20TA PO ×2 (11:52→12:48)
[2023-12-06] MEDS ORDERED: TIOT18INH INH ×2 (11:52→12:48)
[2023-12-06] MEDS ORDERED: IPRA0.00 INH ×2 (11:52→12:48)
[2023-12-06] MEDS ORDERED: PRED10TA2 PO ×2 (11:52→12:48)
[2023-12-06] MEDS ORDERED: DOXY100T PO ×2 (11:52→12:48)
[2023-12-06 12:00] VITALS: BP 182/74; TEMP 97.8; O2SAT 96
[2023-12-06] MEDS ORDERED: SPIR1CAP INH ×2 (13:10→13:21)
[2023-12-07] MEDS ORDERED: predniSONE 20 MG TAB PO SCH (09:00)
[2023-12-08] MEDS ORDERED: ALPR0.5T3 PO (13:57)
== END 2023-12-06 14:11 | disposition home health service (06) | DRG 189 ==
LOC: EDBD 16:47 → M ED 16:47 → M ED INP 23:05 → M ICU 12-05 01:51
PROVIDERS: ADMIT Internal Medicine; ATTEND Student in an Organized Health Care Education/Training Program
DX: J96.21 Acute and chronic respiratory failure with hypoxia (principal); J44.1 Chronic obstructive pulmonary disease with (acute) exacerbation; C34.12 Malignant neoplasm of upper lobe, left bronchus or lung; J96.22 Acute and chronic respiratory failure with hypercapnia; G43.909 Migraine, unspecified, not intractable, without status migrainosus; K21.9 Gastro-esophageal reflux disease without esophagitis; D50.9 Iron deficiency anemia, unspecified; E11.9 Type 2 diabetes mellitus without complications; E83.42 Hypomagnesemia; E78.5 Hyperlipidemia, unspecified; Z99.81 Dependence on supplemental oxygen; Z86.718 Personal history of other venous thrombosis and embolism; Z92.3 Personal history of irradiation; Z87.891 Personal history of nicotine dependence; Z79.84 Long term (current) use of oral hypoglycemic drugs; Z79.01 Long term (current) use of anticoagulants; Z79.899 Other long term (current) drug therapy; Z91.040 Latex allergy status; Z86.711 Personal history of pulmonary embolism; Z88.1 Allergy status to other antibiotic agents; Z88.8 Allergy status to other drugs, medicaments and biological substances

== ENCOUNTER → 2023-12-07 | Outpatient (REF) | payer MEDICARE, OTHER ==
[~2023-12-07] MED LIST changes: +ALPR0.5T3 PO; +FLUT1BLS16 PO; +MULTTAB61 PO; +TIOT18INH INH
[2023-12-07 18:18] LABS: PTH INTACT 46.1 PG/ML (18.5-88.0)
[2023-12-07 18:56] LABS: CREATININE,RANDOM URINE < 13.0 MG/DL; MAGNESIUM URINE RANDOM 3.1 MG/DL
== END ==
LOC: M LAB REF 17:14
PROVIDERS: ATTEND Internal Medicine Nephrology
DX: E83.42 Hypomagnesemia (principal); Z86.39 Personal history of other endocrine, nutritional and metabolic disease; Z79.899 Other long term (current) drug therapy

== ENCOUNTER → 2023-12-08 | Outpatient (CLI) | payer MEDICARE, MEDICAID | LOC: M ONCR 12:43 | PROVIDERS: ATTEND General Practice | DX: C34.12 Malignant neoplasm of upper lobe, left bronchus or lung (principal); J44.9 Chronic obstructive pulmonary disease, unspecified; F17.210 Nicotine dependence, cigarettes, uncomplicated; Z71.2 Person consulting for explanation of examination or test findings; Z79.01 Long term (current) use of anticoagulants; Z79.51 Long term (current) use of inhaled steroids; Z79.84 Long term (current) use of oral hypoglycemic drugs; Z79.899 Other long term (current) drug therapy; Z88.1 Allergy status to other antibiotic agents; Z88.8 Allergy status to other drugs, medicaments and biological substances; Z91.040 Latex allergy status; Z92.3 Personal history of irradiation; Z99.81 Dependence on supplemental oxygen ==

== ENCOUNTER → 2023-12-25 | Outpatient (CLI) | payer MEDICARE, MEDICAID ==
[2023-12-25 13:46] LABS: BLOOD UREA NITROGEN 13 MG/DL (9-23); CALCIUM LEVEL 9.1 MG/DL (8.3-10.6); CARBON DIOXIDE LEVEL 36 MMOL/L (20-31); CHLORIDE LEVEL 102 MMOL/L (98-107); CREATININE FOR GFR 0.43 MG/DL (0.55-1.30); GLOMERULAR FILTRATION RATE > 60.0 (>39); GLUCOSE, FASTING 78 MG/DL (74-106); POTASSIUM SERUM 4.2 MMOL/L (3.5-5.1); SODIUM LEVEL 141 MMOL/L (136-145)
== END ==
LOC: M LAB 12:29
PROVIDERS: ATTEND Family Medicine
DX: E61.2 Magnesium deficiency (principal)

== ENCOUNTER → 2024-03-04 | Outpatient (CLI) | payer MEDICAID, MEDICARE ==
[~2024-03-04] MED LIST changes: -DOXY20TA4 PO; +DOXY20TA6 PO; +ISOVUE-370 76% 100ML VIAL As Ordered ONE; -MIRT-60 PO; +MIRT-89 PO
== END ==
LOC: M RAD 13:50
PROVIDERS: ATTEND General Practice
DX: C34.90 Malignant neoplasm of unspecified part of unspecified bronchus or lung (principal)
CPT/HCPCS: 71260; Q9967

== ENCOUNTER → 2024-03-11 | Outpatient (CLI) | payer MEDICARE, MEDICAID ==
[~2024-03-11] MED LIST changes: +DOXY-323 PO; +DOXY-440 PO; -DOXY-443 PO; -DOXY-444 PO; -ISOVUE-370 76% 100ML VIAL As Ordered ONE; +MOME0.1C3 TOP
== END ==
LOC: M ONCR 13:02
PROVIDERS: ATTEND General Practice
DX: R91.8 Other nonspecific abnormal finding of lung field (principal); K52.1 Toxic gastroenteritis and colitis; T38.3X5A Adverse effect of insulin and oral hypoglycemic [antidiabetic] drugs, initial encounter; J44.9 Chronic obstructive pulmonary disease, unspecified; F17.218 Nicotine dependence, cigarettes, with other nicotine-induced disorders; Z79.01 Long term (current) use of anticoagulants; Z79.84 Long term (current) use of oral hypoglycemic drugs; Z79.51 Long term (current) use of inhaled steroids; Z79.899 Other long term (current) drug therapy; Z88.1 Allergy status to other antibiotic agents; Z88.8 Allergy status to other drugs, medicaments and biological substances; Z91.040 Latex allergy status; Z92.3 Personal history of irradiation; Z99.81 Dependence on supplemental oxygen

== ENCOUNTER → 2024-05-31 | Outpatient (CLI) | payer MEDICARE, MEDICAID | LOC: M PLARAD 10:32 | PROVIDERS: ATTEND General Practice | DX: C34.12 Malignant neoplasm of upper lobe, left bronchus or lung (principal) | CPT/HCPCS: 78815; A9552 ==

== ENCOUNTER 2024-06-24 08:17 | Inpatient (IN) | payer MEDICARE, MEDICAID ==
[2024-06-24] VITALS (27 sets, daily range): BP systolic 134–201; BP diastolic 63–82; TEMP 98.2–98.9; O2SAT 92–99
[~2024-06-24] VITALS: Ht 152.4 cm; Wt 60.8 kg
[2024-06-24 08:49] LABS: BASO % 0.5 % (0.0-1.0); EOS # 0.1 10^3/uL (0.0-0.5); EOS % 1.7 % (0.0-3.0); HEMATOCRIT 36.3 % (36.0-47.0); HEMOGLOBIN 10.9 g/dl (12.0-15.5); LYMPH # 2.1 10^3/uL (1.5-5.0); LYMPH % 26.2 % (24.0-44.0); MEAN CORPUSCULAR HEMOGLOBIN 29.9 pg (27.0-33.0); MEAN CORPUSCULAR VOLUME 99.5 fl (80.0-96.0); MONO # 0.6 10^3/uL (0.0-0.8); MONO % 7.4 % (2.0-8.0); NEUTROPHILS # 5.1 10^3/uL (1.5-8.5); NEUTROPHILS % 63.1 % (36.0-66.0); PLATELET COUNT, AUTOMATED 349 10^3/uL (150-450); RED BLOOD COUNT 3.65 10^6/uL (4.00-5.40); WHITE BLOOD COUNT 8.1 10^3/uL (4.0-10.0)
[2024-06-24] MEDS: propofoL 1,000 MG in IV 1 EA IV SCH ×2 (09:02→11:45)
[2024-06-24] MEDS: IPRATROPIUM 0.5MG/ALBUTEROL 2.5MG INH SOL UD 3ML (DUONEB) NEB PRN (09:02)
[2024-06-24] MEDS: SUCCINYLCHOLINE INJ 200MG/10ML VIAL IV ONE (09:02)
[2024-06-24] MEDS: ETOMIDATE INJ 20MG/10ML VIAL IV ONE (09:02)
[2024-06-24] MEDS: propofoL 200 MG/20 ML VIAL IV ONE (09:03)
[2024-06-24 09:09] LABS: ABG BASE EXCESS 5.2 (-2.0-2.0); ABG HCO3 35.2 MMOL/L (22.0-26.0); ABG O2 SATURATION 95.3 % (95.0-99.0); ABG PARTIAL PRESSURE O2 91.4 mmHg (75.0-100.0); ABG STANDARD HCO3 29.1 MMOL/L. (22.0-26.0); ABG TOTAL CO2 37.9 MMOL/L (23.0-31.0)
[2024-06-24 09:10] LABS: ABG PARTIAL PRESSURE CO2 87.7 mmHg (35.0-45.0); ABG pH (ARTERIAL) 7.222 UNITS (7.350-7.450)
[2024-06-24 09:25] LABS: ALKALINE PHOSPHATASE 96 U/L (46-116); ALT/SGPT 14 U/L (7.0-40); AST/SGOT 50 U/L (<34); BILIRUBIN,DIRECT < 0.1 MG/DL (<0.4); BILIRUBIN,TOTAL 0.3 MG/DL (0.3-1.2); BLOOD UREA NITROGEN 11 MG/DL (9-23); CALCIUM LEVEL 9.5 MG/DL (8.3-10.6); CARBON DIOXIDE LEVEL 33 MMOL/L (20-31); CHLORIDE LEVEL 103 MMOL/L (98-107); CPK CREATINE PHOSPHOKINASE 64 U/L (34-145); CREATININE FOR GFR 0.43 MG/DL (0.55-1.30); GLOMERULAR FILTRATION RATE > 60.0 (>39); GLUCOSE, FASTING 316 MG/DL (74-106); MB/CK RELATIVE INDEX 3.12 (< OR =4); POTASSIUM SERUM 4.9 MMOL/L (3.5-5.1); SODIUM LEVEL 139 MMOL/L (136-145); THYROID STIMULATING HORMONE 1.898 uIU/ML (0.55-4.78); TOTAL PROTEIN 7.6 G/DL (5.7-8.2)
[2024-06-24 10:33] LABS: CK-MB VALUE MASS 3.1 NG/ML (<3.6)
[2024-06-24 10:36] LABS: ABG HCO3 36.1 MMOL/L (22.0-26.0); ABG O2 SATURATION 97.4 % (95.0-99.0); ABG PARTIAL PRESSURE O2 105.6 mmHg (75.0-100.0); ABG STANDARD HCO3 30.9 MMOL/L. (22.0-26.0); ABG TOTAL CO2 38.5 MMOL/L (23.0-31.0); ABG pH (ARTERIAL) 7.288 UNITS (7.350-7.450)
[2024-06-24 10:37] LABS: ABG PARTIAL PRESSURE CO2 77.2 mmHg (35.0-45.0)
[2024-06-24 10:41] LABS: MB/CK RELATIVE INDEX 5.84 (< OR =4)
[2024-06-24] MEDS ORDERED: NITR4TASL SL (11:11)
[2024-06-24] MEDS ORDERED: FURO20TA2 PO (11:11)
[2024-06-24] MEDS ORDERED: HOME MED LIST COMPLETE! XX SCH ×2 (11:15)
[2024-06-24] MEDS ORDERED: HEPARIN SOD (PORCINE) 5000UNITS/ML 1ML VIAL/SYRINGE SC SCH (11:45)
[2024-06-24] MEDS: cefTRIAXone SOD 2 GM in D5W MINI-BAG PLUS 50 ML IV ONE (12:17)
[2024-06-24 13:25] LABS: VENOUS BASE EXCESS 7.3 (-2.0-2.0); VENOUS HCO3 35.5 MMOL/L (23.0-27.0); VENOUS O2 SATURATION 94.6 % (60.0-80.0); VENOUS PARTIAL PRESSURE CO2 72.1 mmHg (38.0-50.0); VENOUS PARTIAL PRESSURE O2 77.7 mmHg (30.0-50.0); VENOUS STANDARD HCO3 31.1 MMOL/L; VENOUS TOTAL CO2 37.7 MMOL/L (24.0-28.0)
[2024-06-24] MEDS: ACETAMINOPHEN *IV* 1,000 MG in IV 1 EA IV ONE (15:13)
[2024-06-24] MEDS ORDERED: PILL CUTTER 1 EACH XX PRN (16:25)
[2024-06-24] MEDS: MAGNESIUM GLUCONATE 500 MG TAB PO SCH (17:00)
[2024-06-24] MEDS: AZITHROMYCIN 250MG TABLET PO SCH (19:31)
[2024-06-24] MEDS: levETIRAcetam 250MG TABLET (KEPPRA) PO SCH (21:04)
[2024-06-24] MEDS: MIDAZOLAM INJ 2MG/2ML VIAL IV PRN (21:04)
[2024-06-24] MEDS: ENOXAPARIN 80MG/0.8ML SYRINGE (J1650 PER 10MG) SC SCH (21:04)
[2024-06-24] MEDS: ACETAMINOPHEN 500 MG TAB PO SCH (21:04)
[2024-06-24] MEDS: SIMVASTATIN 20 MG TAB PO SCH (21:05)
[2024-06-24] MEDS: METOPROLOL TART 50 MG TAB PO SCH (21:05)
[2024-06-24] MEDS: NYSTATIN 100,000 UNITS/GM TOPICAL PWD 15GM TOP SCH (21:05)
[2024-06-25] VITALS (70 sets, daily range): BP systolic 101–196; BP diastolic 51–94; TEMP 97.9–99.2; O2SAT 92–99
[2024-06-25 05:12] LABS: ALBUMIN 2.5 G/DL (3.2-5.2); ALKALINE PHOSPHATASE 73 U/L (46-116); ALT/SGPT < 9 U/L (7.0-40); AST/SGOT 17 U/L (<34); BILIRUBIN,TOTAL 0.2 MG/DL (0.3-1.2); BLOOD UREA NITROGEN 17 MG/DL (9-23); CALCIUM LEVEL 9.6 MG/DL (8.3-10.6); CARBON DIOXIDE LEVEL 36 MMOL/L (20-31); CHLORIDE LEVEL 106 MMOL/L (98-107); CREATININE FOR GFR 0.61 MG/DL (0.55-1.30); GLOMERULAR FILTRATION RATE > 60.0 (>39); GLUCOSE, FASTING 92 MG/DL (74-106); PHOSPHORUS LEVEL 1.6 MG/DL (2.4-5.1); SODIUM LEVEL 145 MMOL/L (136-145)
[2024-06-25] MEDS: MAG SULF 1GM/100ML (MAG RUN) 1 GM in IV 1 EA IV SCH (06:29)
[2024-06-25] MEDS: SODIUM PHOSPHATE INJ 20 MMOL in D5W 250 ML IV ONE (08:15)
[2024-06-25] MEDS: VITAMIN D 1,000 INTERNATIONAL UNITS TABLET PO SCH (08:48)
[2024-06-25] MEDS ORDERED: MAG SULF 1GM/100ML (MAG RUN) 1 GM in IV 1 EA IV SCH (08:49)
[2024-06-25] MEDS: FUROSEMIDE 20 MG TAB PO SCH (08:50)
[2024-06-25] MEDS ORDERED: RIVAROXABAN 20MG TAB (XARELTO) PO SCH (09:00)
[2024-06-25 11:53] LABS: SOURCE, BODY FLUID ALBUMIN PLEURAL
[2024-06-25 11:58] LABS: SOURCE, BODY FLUID GLUCOSE PLEURAL; SOURCE, BODY FLUID TRIG PLEURAL; TRIGLYCERIDE, BODY FLUID 37 MG/DL (NOT ESTABLISHED)
[2024-06-25 12:00] LABS: AMYLASE, BODY FLUID 121 U/L (NOT ESTABLISHED); CHOLESTEROL, BODY FLUID 39 MG/DL (NOT ESTABLISHED); LDH, BODY FLUID 85 U/L (NOT ESTABLISHED); SOURCE, BODY FLUID AMYLASE PLEURAL; SOURCE, BODY FLUID CHOL PLEURAL; SOURCE, BODY FLUID LDH PLEURAL
[2024-06-25 12:03] LABS: APPEARANCE, BODY FLUID HAZY (CLEAR); PLEURAL FL COLOR AMBER (COLORLESS); SOURCE, BODY FLUID PLEURAL
[2024-06-25] MEDS ORDERED: dexmedeTOMidine 200 MCG in IV 1 EA IV SCH (12:10)
[2024-06-25] MEDS: IPRATROPIUM 0.5MG/ALBUTEROL 2.5MG INH SOL UD 3ML (DUONEB) INH PRN (12:33)
[2024-06-25 13:03] LABS: SOURCE, BODY FLUID TOT PROTEIN PLEURAL
[2024-06-25 13:13] LABS: LDH LACTATE DEHYDROGENASE 234 U/L (120-246)
[2024-06-25 15:05] LABS: VENOUS BASE EXCESS 6.7 (-2.0-2.0); VENOUS HCO3 33.4 MMOL/L (23.0-27.0); VENOUS O2 SATURATION 98.7 % (60.0-80.0); VENOUS PARTIAL PRESSURE CO2 59.3 mmHg (38.0-50.0); VENOUS PARTIAL PRESSURE O2 195.8 mmHg (30.0-50.0); VENOUS PH 7.369 UNITS (7.330-7.430); VENOUS STANDARD HCO3 30.6 MMOL/L; VENOUS TOTAL CO2 35.3 MMOL/L (24.0-28.0)
[2024-06-25] MEDS: hydrALAZINE 20MG/ML 1ML VIAL IV ONE (15:07)
[2024-06-25] MEDS: IPRATROPIUM 0.5MG/ALBUTEROL 2.5MG INH SOL UD 3ML (DUONEB) INH SCH (15:15)
[2024-06-25 15:46] LABS: BLOOD UREA NITROGEN 21 MG/DL (9-23); CALCIUM LEVEL 9.5 MG/DL (8.3-10.6); CARBON DIOXIDE LEVEL 37 MMOL/L (20-31); CHLORIDE LEVEL 99 MMOL/L (98-107); CREATININE FOR GFR 0.73 MG/DL (0.55-1.30); GLOMERULAR FILTRATION RATE > 60.0 (>39); GLUCOSE, FASTING 160 MG/DL (74-106); MAGNESIUM LEVEL 1.8 MG/DL (1.8-2.4); POTASSIUM SERUM 3.5 MMOL/L (3.5-5.1); SODIUM LEVEL 140 MMOL/L (136-145)
[2024-06-25] MEDS ORDERED: AZITHROMYCIN 250MG TABLET PO ONE (18:00)
[2024-06-25] MEDS ORDERED: hydrALAZINE 20MG/ML 1ML VIAL IV PRN (19:20)
[2024-06-25] MEDS: FORMOTEROL FUMARATE 20 MCG/2 ML INHALATION SOLUTION (PERFOROMIST) INH SCH (19:25)
[2024-06-25] MEDS: GLYCOPYRROLATE INJ 0.2 MG/ML 2 ML VIAL NEB SCH (19:25)
[2024-06-25] MEDS: AZITHROMYCIN INJ 500 MG, VIAL MATE ADAPTER 1 EACH in NS 250 ML IV ONE (19:25)
[2024-06-26] VITALS (20 sets, daily range): BP systolic 143–167; BP diastolic 64–72; TEMP 97.8–98.6; O2SAT 90–100
[2024-06-26 05:50] LABS: ALBUMIN 2.6 G/DL (3.2-5.2); ALKALINE PHOSPHATASE 80 U/L (46-116); ALT/SGPT < 9 U/L (7.0-40); AST/SGOT 20 U/L (<34); BILIRUBIN,TOTAL 0.3 MG/DL (0.3-1.2); BLOOD UREA NITROGEN 12 MG/DL (9-23); CALCIUM LEVEL 9.3 MG/DL (8.3-10.6); CARBON DIOXIDE LEVEL 37 MMOL/L (20-31); CHLORIDE LEVEL 105 MMOL/L (98-107); CREATININE FOR GFR 0.41 MG/DL (0.55-1.30); GLOMERULAR FILTRATION RATE > 60.0 (>39); GLUCOSE, FASTING 107 MG/DL (74-106); MAGNESIUM LEVEL 1.4 MG/DL (1.8-2.4); PHOSPHORUS LEVEL 4.3 MG/DL (2.4-5.1); POTASSIUM SERUM 3.4 MMOL/L (3.5-5.1); SODIUM LEVEL 146 MMOL/L (136-145); TOTAL PROTEIN 6.3 G/DL (5.7-8.2)
[2024-06-26] MEDS: MAG SULF 1GM/100ML (MAG RUN) 1 GM in IV 1 EA IV SCH (06:35)
[2024-06-26] MEDS: KCL 10MEQ/100ML SWI (KRUN) 10 MEQ in IV 1 EA IV SCH (11:38)
[2024-06-26] MEDS ORDERED: KCL 10MEQ IN STERILE WATER 100ML As Ordered ONE (14:06)
[2024-06-27] VITALS (7 sets, daily range): BP systolic 140–178; BP diastolic 60–70; TEMP 97.2–98.4; O2SAT 94–100
[2024-06-27 05:46] LABS: ALBUMIN 2.7 G/DL (3.2-5.2); ALKALINE PHOSPHATASE 82 U/L (46-116); ALT/SGPT 12 U/L (7.0-40); AST/SGOT 23 U/L (<34); BILIRUBIN,TOTAL 0.4 MG/DL (0.3-1.2); BLOOD UREA NITROGEN 11 MG/DL (9-23); CALCIUM LEVEL 9.2 MG/DL (8.3-10.6); CARBON DIOXIDE LEVEL 38 MMOL/L (20-31); CHLORIDE LEVEL 101 MMOL/L (98-107); GLOMERULAR FILTRATION RATE > 60.0 (>39); GLUCOSE, FASTING 129 MG/DL (74-106); MAGNESIUM LEVEL 1.6 MG/DL (1.8-2.4); PHOSPHORUS LEVEL 3.7 MG/DL (2.4-5.1); POTASSIUM SERUM 4.3 MMOL/L (3.5-5.1); SODIUM LEVEL 139 MMOL/L (136-145); TOTAL PROTEIN 6.8 G/DL (5.7-8.2)
[2024-06-27] MEDS: MAG SULF 1GM/100ML (MAG RUN) 1 GM in IV 1 EA IV ONE (06:33)
[2024-06-27] MEDS: IPRATROPIUM 0.5MG/ALBUTEROL 2.5MG INH SOL UD 3ML (DUONEB) INH PRN (19:09)
[2024-06-27 19:32] LABS: BASO % 0.2 % (0.0-1.0); EOS # 0.2 10^3/uL (0.0-0.5); EOS % 1.8 % (0.0-3.0); HEMATOCRIT 31.9 % (36.0-47.0); HEMOGLOBIN 10.1 g/dl (12.0-15.5); LYMPH # 0.5 10^3/uL (1.5-5.0); LYMPH % 5.4 % (24.0-44.0); MEAN CORPUSCULAR HEMOGLOBIN 29.7 pg (27.0-33.0); MEAN CORPUSCULAR HGB CONC 31.7 g/dl (32.0-36.5); MEAN CORPUSCULAR VOLUME 93.8 fl (80.0-96.0); MONO # 0.6 10^3/uL (0.0-0.8); MONO % 6.7 % (2.0-8.0); NEUTROPHILS % 85.6 % (36.0-66.0); PLATELET COUNT, AUTOMATED 292 10^3/uL (150-450); WHITE BLOOD COUNT 9.4 10^3/uL (4.0-10.0)
[2024-06-27 19:33] LABS: VENOUS HCO3 34.5 MMOL/L (23.0-27.0); VENOUS O2 SATURATION 87.1 % (60.0-80.0); VENOUS PARTIAL PRESSURE CO2 58.3 mmHg (38.0-50.0); VENOUS PARTIAL PRESSURE O2 54.8 mmHg (30.0-50.0); VENOUS STANDARD HCO3 31.5 MMOL/L; VENOUS TOTAL CO2 36.3 MMOL/L (24.0-28.0)
[2024-06-27 20:00] LABS: CK-MB VALUE MASS 1.5 NG/ML (<3.6)
[2024-06-27 20:02] LABS: CPK CREATINE PHOSPHOKINASE 76 U/L (34-145); MB/CK RELATIVE INDEX 1.97 (< OR =4)
[2024-06-27 20:03] LABS: ALBUMIN 2.8 G/DL (3.2-5.2); ALKALINE PHOSPHATASE 101 U/L (46-116); ALT/SGPT 16 U/L (7.0-40); AST/SGOT 29 U/L (<34); BILIRUBIN,TOTAL 0.4 MG/DL (0.3-1.2); BLOOD UREA NITROGEN 16 MG/DL (9-23); CALCIUM LEVEL 9.7 MG/DL (8.3-10.6); CARBON DIOXIDE LEVEL 36 MMOL/L (20-31); CHLORIDE LEVEL 101 MMOL/L (98-107); CREATININE FOR GFR 0.37 MG/DL (0.55-1.30); GLOMERULAR FILTRATION RATE > 60.0 (>39); GLUCOSE, FASTING 157 MG/DL (74-106); MAGNESIUM LEVEL 1.7 MG/DL (1.8-2.4); POTASSIUM SERUM 4.5 MMOL/L (3.5-5.1); SODIUM LEVEL 140 MMOL/L (136-145); TOTAL PROTEIN 7.2 G/DL (5.7-8.2)
[2024-06-27] MEDS ORDERED: ISOVUE-370 76% 100ML VIAL As Ordered ONE (21:25)
[2024-06-27] MEDS: MAGNESIUM GLUCONATE 500 MG TAB PO ONE (23:34)
[2024-06-28] VITALS (19 sets, daily range): BP systolic 131–164; BP diastolic 56–72; TEMP 96.8–97.5; O2SAT 80–100
[2024-06-28 04:18] LABS: HEMATOCRIT 27.8 % (36.0-47.0); HEMOGLOBIN 8.6 g/dl (12.0-15.5); MEAN CORPUSCULAR HEMOGLOBIN 29.5 pg (27.0-33.0); MEAN CORPUSCULAR HGB CONC 30.9 g/dl (32.0-36.5); MEAN CORPUSCULAR VOLUME 95.2 fl (80.0-96.0); PLATELET COUNT, AUTOMATED 239 10^3/uL (150-450); RED BLOOD COUNT 2.92 10^6/uL (4.00-5.40); WHITE BLOOD COUNT 5.6 10^3/uL (4.0-10.0)
[2024-06-28 04:41] LABS: CK-MB VALUE MASS 1.2 NG/ML (<3.6)
[2024-06-28 04:43] LABS: MB/CK RELATIVE INDEX 3.15 (< OR =4)
[2024-06-28 04:53] LABS: ALBUMIN 2.2 G/DL (3.2-5.2); ALKALINE PHOSPHATASE 83 U/L (46-116); ALT/SGPT 14 U/L (7.0-40); AST/SGOT 23 U/L (<34); BILIRUBIN,TOTAL 0.3 MG/DL (0.3-1.2); BLOOD UREA NITROGEN 15 MG/DL (9-23); CALCIUM LEVEL 9.2 MG/DL (8.3-10.6); CARBON DIOXIDE LEVEL 38 MMOL/L (20-31); CHLORIDE LEVEL 104 MMOL/L (98-107); GLOMERULAR FILTRATION RATE > 60.0 (>39); GLUCOSE, FASTING 139 MG/DL (74-106); MAGNESIUM LEVEL 1.7 MG/DL (1.8-2.4); PHOSPHORUS LEVEL 3.4 MG/DL (2.4-5.1); POTASSIUM SERUM 4.2 MMOL/L (3.5-5.1); SODIUM LEVEL 142 MMOL/L (136-145); TOTAL PROTEIN 5.8 G/DL (5.7-8.2)
[2024-06-28 06:43] LABS: VENOUS BASE EXCESS 5.2 (-2.0-2.0); VENOUS HCO3 31.3 MMOL/L (23.0-27.0); VENOUS O2 SATURATION 98.3 % (60.0-80.0); VENOUS PARTIAL PRESSURE CO2 53.3 mmHg (38.0-50.0); VENOUS PARTIAL PRESSURE O2 126.6 mmHg (30.0-50.0); VENOUS PH 7.386 UNITS (7.330-7.430); VENOUS STANDARD HCO3 29.2 MMOL/L; VENOUS TOTAL CO2 32.9 MMOL/L (24.0-28.0)
[2024-06-29] VITALS (19 sets, daily range): BP systolic 148–170; BP diastolic 56–76; TEMP 97–97.5; O2SAT 77–100
[2024-06-29] MEDS: OLANZapine INTRAMUSCULAR 10MG VIAL IM ONE (03:00)
[2024-06-29 05:21] LABS: HEMATOCRIT 33.9 % (36.0-47.0); HEMOGLOBIN 10.4 g/dl (12.0-15.5); MEAN CORPUSCULAR HEMOGLOBIN 29.3 pg (27.0-33.0); MEAN CORPUSCULAR HGB CONC 30.7 g/dl (32.0-36.5); MEAN CORPUSCULAR VOLUME 95.5 fl (80.0-96.0); PLATELET COUNT, AUTOMATED 319 10^3/uL (150-450); RED BLOOD COUNT 3.55 10^6/uL (4.00-5.40); WHITE BLOOD COUNT 6.8 10^3/uL (4.0-10.0)
[2024-06-29 05:53] LABS: ALBUMIN 2.8 G/DL (3.2-5.2); ALKALINE PHOSPHATASE 106 U/L (46-116); ALT/SGPT 22 U/L (7.0-40); AST/SGOT 28 U/L (<34); BILIRUBIN,TOTAL 0.3 MG/DL (0.3-1.2); BLOOD UREA NITROGEN 14 MG/DL (9-23); CARBON DIOXIDE LEVEL 37 MMOL/L (20-31); CHLORIDE LEVEL 102 MMOL/L (98-107); GLOMERULAR FILTRATION RATE > 60.0 (>39); GLUCOSE, FASTING 154 MG/DL (74-106); HEMOGLOBIN A1c 5.6 % (4.0-6.0); MAGNESIUM LEVEL 1.5 MG/DL (1.8-2.4); POTASSIUM SERUM 4.3 MMOL/L (3.5-5.1); SODIUM LEVEL 140 MMOL/L (136-145); TOTAL PROTEIN 7.2 G/DL (5.7-8.2)
[2024-06-29] MEDS: MAG SULF 1GM/100ML (MAG RUN) 1 GM in IV 1 EA IV SCH (09:00)
[2024-06-29] MEDS: MAGNESIUM OXIDE 400MG TAB (MAG-OX) PO SCH (09:47)
[2024-06-29] MEDS: valACYclovir HCL 500 MG TAB PO SCH (15:32)
[2024-06-30] VITALS (23 sets, daily range): BP systolic 111–180; BP diastolic 51–74; TEMP 97.1–97.9; O2SAT 90–100
[2024-06-30 05:33] LABS: HEMATOCRIT 29.4 % (36.0-47.0); HEMOGLOBIN 8.9 g/dl (12.0-15.5); MEAN CORPUSCULAR HEMOGLOBIN 29.2 pg (27.0-33.0); MEAN CORPUSCULAR HGB CONC 30.3 g/dl (32.0-36.5); MEAN CORPUSCULAR VOLUME 96.4 fl (80.0-96.0); PLATELET COUNT, AUTOMATED 300 10^3/uL (150-450); RED BLOOD COUNT 3.05 10^6/uL (4.00-5.40); WHITE BLOOD COUNT 4.1 10^3/uL (4.0-10.0)
[2024-06-30 05:59] LABS: ALBUMIN 2.3 G/DL (3.2-5.2); ALKALINE PHOSPHATASE 89 U/L (46-116); ALT/SGPT 16 U/L (7.0-40); AST/SGOT 21 U/L (<34); BILIRUBIN,TOTAL 0.2 MG/DL (0.3-1.2); BLOOD UREA NITROGEN 13 MG/DL (9-23); CALCIUM LEVEL 10.2 MG/DL (8.3-10.6); CARBON DIOXIDE LEVEL 35 MMOL/L (20-31); CHLORIDE LEVEL 107 MMOL/L (98-107); CREATININE FOR GFR 0.38 MG/DL (0.55-1.30); GLOMERULAR FILTRATION RATE > 60.0 (>39); GLUCOSE, FASTING 112 MG/DL (74-106); MAGNESIUM LEVEL 1.7 MG/DL (1.8-2.4); POTASSIUM SERUM 4.9 MMOL/L (3.5-5.1); SODIUM LEVEL 145 MMOL/L (136-145); TOTAL PROTEIN 6.3 G/DL (5.7-8.2)
[2024-06-30] MEDS ORDERED: LORazepam 2 MG/ML 1ML VIAL IM STA (08:27)
[2024-06-30] MEDS: diazePAM 10MG/2ML SYRINGE IM ONE (09:57)
[2024-06-30] MEDS: FUROSEMIDE 40MG/4ML VIAL IV ONE ×2 (11:30→11:43)
[2024-06-30] MEDS: MAG SULF 1GM/100ML (MAG RUN) 1 GM in IV 1 EA IV SCH (11:42)
[2024-06-30] MEDS: BUDESONIDE 0.25 MG/2 ML INHALATION SUSPENSION INH SCH (20:04)
[2024-06-30] MEDS: RAMELTEON 8 MG TAB (ROZEREM) PO SCH (21:51)
[2024-06-30] MEDS: FUROSEMIDE 40MG/4ML VIAL IV SCH (23:32)
[2024-07-01] VITALS (16 sets, daily range): BP systolic 143–172; BP diastolic 65–93; TEMP 96.7–97.1; O2SAT 84–100
[2024-07-01 05:20] LABS: HEMATOCRIT 27.3 % (36.0-47.0); HEMOGLOBIN 8.3 g/dl (12.0-15.5); MEAN CORPUSCULAR HEMOGLOBIN 29.2 pg (27.0-33.0); MEAN CORPUSCULAR HGB CONC 30.4 g/dl (32.0-36.5); MEAN CORPUSCULAR VOLUME 96.1 fl (80.0-96.0); PLATELET COUNT, AUTOMATED 270 10^3/uL (150-450); RED BLOOD COUNT 2.84 10^6/uL (4.00-5.40); WHITE BLOOD COUNT 3.8 10^3/uL (4.0-10.0)
[2024-07-01 05:32] LABS: ALBUMIN 2.3 G/DL (3.2-5.2); ALKALINE PHOSPHATASE 82 U/L (46-116); ALT/SGPT 14 U/L (7.0-40); AST/SGOT 20 U/L (<34); BILIRUBIN,TOTAL 0.2 MG/DL (0.3-1.2); BLOOD UREA NITROGEN 16 MG/DL (9-23); CALCIUM LEVEL 9.8 MG/DL (8.3-10.6); CARBON DIOXIDE LEVEL 35 MMOL/L (20-31); CHLORIDE LEVEL 106 MMOL/L (98-107); CREATININE FOR GFR 0.47 MG/DL (0.55-1.30); GLOMERULAR FILTRATION RATE > 60.0 (>39); GLUCOSE, FASTING 139 MG/DL (74-106); MAGNESIUM LEVEL 1.7 MG/DL (1.8-2.4); POTASSIUM SERUM 4.7 MMOL/L (3.5-5.1); SODIUM LEVEL 143 MMOL/L (136-145)
[2024-07-01] MEDS: MAG SULF 1GM/100ML (MAG RUN) 1 GM in IV 1 EA IV SCH (09:00)
[2024-07-01] MEDS ORDERED: FUROSEMIDE 40MG/4ML VIAL IV SCH (09:00)
[2024-07-01 12:27] LABS: ABG BASE EXCESS 12.9 (-2.0-2.0); ABG HCO3 41.6 MMOL/L (22.0-26.0); ABG O2 SATURATION 91.9 % (95.0-99.0); ABG PARTIAL PRESSURE O2 67.8 mmHg (75.0-100.0); ABG STANDARD HCO3 36.5 MMOL/L. (22.0-26.0); ABG TOTAL CO2 44.1 MMOL/L (23.0-31.0); ABG pH (ARTERIAL) 7.331 UNITS (7.350-7.450)
[2024-07-01 12:28] LABS: ABG PARTIAL PRESSURE CO2 80.5 mmHg (35.0-45.0)
[2024-07-01 14:04] LABS: LDH LACTATE DEHYDROGENASE 201 U/L (120-246)
[2024-07-01] MEDS: methylPREDNISolone 40MG 1ML VIAL IV SCH (14:55)
[2024-07-02] VITALS (29 sets, daily range): BP systolic 145–184; BP diastolic 54–70; TEMP 96.1–97.5; O2SAT 85–100
[2024-07-02 06:10] LABS: HEMATOCRIT 29.5 % (36.0-47.0); HEMOGLOBIN 9.3 g/dl (12.0-15.5); MEAN CORPUSCULAR HEMOGLOBIN 29.9 pg (27.0-33.0); MEAN CORPUSCULAR HGB CONC 31.5 g/dl (32.0-36.5); MEAN CORPUSCULAR VOLUME 94.9 fl (80.0-96.0); PLATELET COUNT, AUTOMATED 332 10^3/uL (150-450); RED BLOOD COUNT 3.11 10^6/uL (4.00-5.40); WHITE BLOOD COUNT 4.1 10^3/uL (4.0-10.0)
[2024-07-02 06:52] LABS: ALBUMIN 2.4 G/DL (3.2-5.2); ALKALINE PHOSPHATASE 84 U/L (46-116); ALT/SGPT 19 U/L (7.0-40); AST/SGOT 14 U/L (<34); BILIRUBIN,TOTAL 0.2 MG/DL (0.3-1.2); BLOOD UREA NITROGEN 19 MG/DL (9-23); CALCIUM LEVEL 9.9 MG/DL (8.3-10.6); CARBON DIOXIDE LEVEL > 40.0 MMOL/L (20-31); CHLORIDE LEVEL 98 MMOL/L (98-107); CREATININE FOR GFR 0.43 MG/DL (0.55-1.30); GLOMERULAR FILTRATION RATE > 60.0 (>39); GLUCOSE, FASTING 235 MG/DL (74-106); MAGNESIUM LEVEL 1.6 MG/DL (1.8-2.4); POTASSIUM SERUM 5.2 MMOL/L (3.5-5.1); SODIUM LEVEL 138 MMOL/L (136-145); TOTAL PROTEIN 6.5 G/DL (5.7-8.2)
[2024-07-02] MEDS: MAGNESIUM OXIDE 400MG TAB (MAG-OX) PO SCH (08:54)
[2024-07-02] MEDS: MAG SULF 1GM/100ML (MAG RUN) 1 GM in IV 1 EA IV SCH (13:30)
[2024-07-03] VITALS (16 sets, daily range): BP systolic 153–168; BP diastolic 66–70; TEMP 97.2–97.6; O2SAT 88–100
[2024-07-03 06:34] LABS: HEMATOCRIT 35.8 % (36.0-47.0); MEAN CORPUSCULAR HGB CONC 31.6 g/dl (32.0-36.5); PLATELET COUNT, AUTOMATED 422 10^3/uL (150-450); RED BLOOD COUNT 3.77 10^6/uL (4.00-5.40); WHITE BLOOD COUNT 5.1 10^3/uL (4.0-10.0)
[2024-07-03 06:35] LABS: HEMOGLOBIN 11.3 g/dl (12.0-15.5)
[2024-07-03 06:49] LABS: ALBUMIN 2.7 G/DL (3.2-5.2); ALKALINE PHOSPHATASE 89 U/L (46-116); ALT/SGPT 19 U/L (7.0-40); AST/SGOT 26 U/L (<34); BILIRUBIN,TOTAL 0.2 MG/DL (0.3-1.2); BLOOD UREA NITROGEN 17 MG/DL (9-23); CALCIUM LEVEL 10.1 MG/DL (8.3-10.6); CARBON DIOXIDE LEVEL > 40.0 MMOL/L (20-31); CHLORIDE LEVEL 97 MMOL/L (98-107); CREATININE FOR GFR 0.42 MG/DL (0.55-1.30); GLOMERULAR FILTRATION RATE > 60.0 (>39); GLUCOSE, FASTING 120 MG/DL (74-106); MAGNESIUM LEVEL 1.8 MG/DL (1.8-2.4); POTASSIUM SERUM 4.4 MMOL/L (3.5-5.1); SODIUM LEVEL 140 MMOL/L (136-145); TOTAL PROTEIN 7.2 G/DL (5.7-8.2)
[2024-07-03] MEDS: predniSONE 20 MG TAB PO SCH (08:49)
[2024-07-03] MEDS: FUROSEMIDE 40MG/4ML VIAL IV SCH (08:50)
[2024-07-03] MEDS ORDERED: PRED20TA PO (11:26)
[2024-07-03] MEDS ORDERED: MAGN400T2 PO (11:26)
[2024-07-03] MEDS ORDERED: VALA500T5 PO (11:27)
[2024-07-03] MEDS ORDERED: TORS20TA2 PO (11:30)
[2024-07-04] MEDS ORDERED: DIAZ2TAB PO (14:44)
== END 2024-07-03 14:48 | disposition home health service (06) | DRG 208 ==
LOC: M ED 08:17 → M ED INP 11:45 → M ICU 17:29 → M MS5PR 06-27 14:15 → M PCU 06-28 05:38
PROVIDERS: ADMIT Internal Medicine Pulmonary Disease; ATTEND Internal Medicine Pulmonary Disease
PROC: 0BH17EZ Insertion of Endotracheal Airway into Trachea, Via Natural or Artificial Opening (ICD-10-PCS; 2024-06-24)
PROC: 5A1945Z Respiratory Ventilation, 24-96 Consecutive Hours (ICD-10-PCS; principal; 2024-06-25)
PROC: 0W9B30Z Drainage of Left Pleural Cavity with Drainage Device, Percutaneous Approach (ICD-10-PCS; 2024-06-25)
PROC: B246ZZZ Ultrasonography of Right and Left Heart (ICD-10-PCS; 2024-06-28)
PROC: B246ZZZ Ultrasonography of Right and Left Heart (ICD-10-PCS; 2024-07-01)
DX: J96.21 Acute and chronic respiratory failure with hypoxia (principal); J44.1 Chronic obstructive pulmonary disease with (acute) exacerbation; J98.11 Atelectasis; J90 Pleural effusion, not elsewhere classified; I31.39 Other pericardial effusion (noninflammatory); I50.32 Chronic diastolic (congestive) heart failure; E87.0 Hyperosmolality and hypernatremia; C34.12 Malignant neoplasm of upper lobe, left bronchus or lung; E87.3 Alkalosis; J96.22 Acute and chronic respiratory failure with hypercapnia; G40.909 Epilepsy, unspecified, not intractable, without status epilepticus; K21.9 Gastro-esophageal reflux disease without esophagitis; E11.9 Type 2 diabetes mellitus without complications; E78.00 Pure hypercholesterolemia, unspecified; E83.42 Hypomagnesemia; E83.39 Other disorders of phosphorus metabolism; E87.6 Hypokalemia; R59.0 Localized enlarged lymph nodes; I27.20 Pulmonary hypertension, unspecified; I87.2 Venous insufficiency (chronic) (peripheral); F17.200 Nicotine dependence, unspecified, uncomplicated; G47.33 Obstructive sleep apnea (adult) (pediatric); I11.0 Hypertensive heart disease with heart failure; I25.10 Atherosclerotic heart disease of native coronary artery without angina pectoris; E78.5 Hyperlipidemia, unspecified; R41.0 Disorientation, unspecified; B02.9 Zoster without complications; Z99.81 Dependence on supplemental oxygen; Z86.718 Personal history of other venous thrombosis and embolism; Z87.891 Personal history of nicotine dependence; Z86.711 Personal history of pulmonary embolism; Z79.84 Long term (current) use of oral hypoglycemic drugs; Z79.01 Long term (current) use of anticoagulants; Z79.899 Other long term (current) drug therapy; Z88.1 Allergy status to other antibiotic agents; Z88.8 Allergy status to other drugs, medicaments and biological substances; Z91.040 Latex allergy status

== ENCOUNTER 2024-07-08 10:23 | Outpatient (RCR) | payer MEDICARE, MEDICAID ==
[~2024-07-08 10:23] MED LIST changes: +DIAZ2TAB PO; +GABA-1490 PO; -GABA600T4 PO; +TORS20TA2 PO
== END 2024-07-09 ==
PROVIDERS: ATTEND General Practice
DX: Z51.0 Encounter for antineoplastic radiation therapy (principal); C34.12 Malignant neoplasm of upper lobe, left bronchus or lung

== ENCOUNTER 2024-08-02 12:15 | Outpatient (RCR) | payer MEDICARE, MEDICAID ==
[~2024-08-02 12:15] MED LIST changes: -TRIA1CR80 TOP
[2024-08-02] MEDS ORDERED: TRIA1CR80 TOP (12:39)
== END 2024-08-08 ==
LOC: M ONCR 12:15
PROVIDERS: ATTEND General Practice
DX: Z51.0 Encounter for antineoplastic radiation therapy (principal); C34.12 Malignant neoplasm of upper lobe, left bronchus or lung

== ENCOUNTER → 2024-08-02 | Outpatient (CLI) | payer MEDICAID, MEDICARE ==
[~2024-08-02] MED LIST changes: +TRIA1CR80 TOP
== END ==
LOC: M CARPUL 13:35
PROVIDERS: ATTEND Internal Medicine Pulmonary Disease
DX: I31.39 Other pericardial effusion (noninflammatory) (principal)

== ENCOUNTER 2024-08-16 09:03 | Outpatient (RCR) | payer MEDICAID, MEDICARE, OTHER ==
[2018-09-08 14:56] LABS: HEMATOCRIT 38.4 % (37.0-51.0); HEMOGLOBIN 12.2 g/dl (12.0-18.0); MEAN CORPUSCULAR HEMOGLOBIN 26.9 pg (26.0-32.0); MEAN CORPUSCULAR HGB CONC 31.8 g/dl (31.0-36.0); MEAN CORPUSCULAR VOLUME 84.8 fl (80.0-97.0); NEUTROPHILS # 4.7 10^3/uL (2.0-7.8); RED BLOOD COUNT 4.53 10^6/uL (4.2-6.3); WHITE BLOOD COUNT 7.6 10^3/uL (4.1-10.9)
[2018-09-08 15:06] VITALS: BP 135/85; TEMP 97.3; O2SAT 88
[2018-09-08 15:20] LABS: ALBUMIN 4.1 GM/DL (3.5-5.2); ALKALINE PHOSPHATASE 80 U/L (44-147); BLOOD UREA NITROGEN 11 MG/DL (6-20); CALCIUM LEVEL 9.6 MG/DL (8.5-10.2); CARBON DIOXIDE LEVEL 33 MEQ/L (23-31); CHLORIDE LEVEL 99 MMOL/L (98-107); CREATININE FOR GFR 0.94 MG/DL (0.60-1.10); GLOMERULAR FILTRATION RATE > 60.0 (>45); GLUCOSE, FASTING 95 MG/DL (70-105); POTASSIUM SERUM 4.9 MMOL/L (3.5-5.1); SODIUM LEVEL 138 MMOL/L (136-145); TOTAL PROTEIN 7.4 GM/DL (6.4-8.3)
[2018-09-08 15:32] LABS: PERCENT SATURATION 6.6 % (13.2-45.0)
[2018-09-10 08:37] VITALS: BP 138/60; TEMP 98.5; O2SAT 92
[2018-09-10] MEDS: ACETAMINOPHEN 650 MG PO PO ONE (09:21)
[2018-09-10] MEDS: diphenhydrAMINE 50 MG PO PO ONE (09:21)
[2018-09-10] MEDS: dexameTHASONE 10 MG IV IV ONE (09:22)
[2018-09-10] MEDS: IRON DEXTRAN IV ONE ×2 (09:33→10:51)
[2018-09-10 14:00] VITALS: BP 140/60; TEMP 97.9; O2SAT 88
[2018-09-17 08:27] VITALS: BP 146/70; TEMP 97.6; O2SAT 93
[2018-09-17] MEDS: dexameTHASONE 10 MG IV IV ONE (09:05)
[2018-09-17] MEDS: ACETAMINOPHEN 650 MG PO PO ONE (09:06)
[2018-09-17] MEDS: diphenhydrAMINE 50 MG PO PO ONE (09:06)
[2018-09-17] MEDS: IRON DEXTRAN IV ONE (09:36)
[2018-09-17 13:00] VITALS: BP 136/70; TEMP 97.8; O2SAT 93
[2018-11-30 13:36] LABS: HEMATOCRIT 52.5 % (36.0-47.0); HEMOGLOBIN 16.6 g/dl (12.0-15.5); MEAN CORPUSCULAR HEMOGLOBIN 29.1 pg (27.0-33.0); MEAN CORPUSCULAR HGB CONC 31.6 g/dl (32.0-36.5); NEUTROPHILS # 6.4 10^3/uL (1.8-7.7); NEUTROPHILS % 59.4 % (36.0-66.0); RED BLOOD COUNT 5.71 10^6/uL (4.00-5.40); WHITE BLOOD COUNT 10.7 10^3/uL (4.0-10.0)
[2018-11-30 13:44] VITALS: BP 136/72; TEMP 97.7; O2SAT 89
[2018-11-30 14:13] LABS: PERCENT SATURATION 40.9 % (13.2-45.0)
[2018-12-02 08:17] LABS: ERYTHROPOIETIN 11.6 mIU/mL (2.6-18.5)
[2018-12-07 08:29] LABS: JAK2 MUTATIONS FOR PATH SENDOU See Pathology Report
[2018-12-22 13:50] VITALS: BP 127/64; TEMP 98.3; O2SAT 88
[2018-12-22 13:55] LABS: HEMATOCRIT 47.4 % (36.0-47.0); HEMOGLOBIN 15.5 g/dl (12.0-15.5); LYMPH % 27.3 % (24.0-44.0); MEAN CORPUSCULAR HEMOGLOBIN 31.1 pg (27.0-33.0); MEAN CORPUSCULAR HGB CONC 32.7 g/dl (32.0-36.5); MEAN CORPUSCULAR VOLUME 95.2 fl (80.0-96.0); NEUTROPHILS # 4.5 10^3/uL (1.8-7.7); NEUTROPHILS % 63.7 % (36.0-66.0); RED BLOOD COUNT 4.98 10^6/uL (4.00-5.40); WHITE BLOOD COUNT 7.1 10^3/uL (4.0-10.0)
[2018-12-29 13:41] LABS: ALBUMIN 3.7 GM/DL (3.5-5.2); ALKALINE PHOSPHATASE 72 U/L (44-147); BLOOD UREA NITROGEN 14 MG/DL (6-20); CARBON DIOXIDE LEVEL 36 MEQ/L (23-31); CHLORIDE LEVEL 98 MMOL/L (98-107); CREATININE FOR GFR 0.87 MG/DL (0.60-1.10); GLOMERULAR FILTRATION RATE > 60.0 (>45); GLUCOSE, FASTING 147 MG/DL (70-105); POTASSIUM SERUM 4.5 MMOL/L (3.5-5.1); SODIUM LEVEL 138 MMOL/L (136-145); TOTAL PROTEIN 7.4 GM/DL (6.4-8.3)
[2019-03-30 15:40] VITALS: BP 177/72; TEMP 97.4; O2SAT 86
[2019-03-30 16:26] LABS: BASO # 0.1 10^3/uL (0.0-0.2); BASO % 0.9 % (0.0-1.0); EOS # 0.2 10^3/uL (0.0-0.50); EOS % 3.6 % (0.0-3.0); HEMATOCRIT 51.9 % (36.0-47.0); HEMOGLOBIN 16.3 g/dl (12.0-15.5); LYMPH # 2.2 10^3/uL (1.5-4.5); LYMPH % 33.3 % (24.0-44.0); MEAN CORPUSCULAR HEMOGLOBIN 30.6 pg (27.0-33.0); MEAN CORPUSCULAR HGB CONC 31.4 g/dl (32.0-36.5); MEAN CORPUSCULAR VOLUME 97.4 fl (80.0-96.0); MONO # 0.5 10^3/uL (0.0-0.8); MONO % 7.9 % (0.0-5.0); NEUTROPHILS # 3.6 10^3/uL (1.8-7.7); NEUTROPHILS % 54.2 % (36.0-66.0); PLATELET COUNT, AUTOMATED 284 10^3/uL (150-450); RED BLOOD COUNT 5.33 10^6/uL (4.00-5.40); WHITE BLOOD COUNT 6.7 10^3/uL (4.0-10.0)
[2019-09-20 15:36] VITALS: BP 143/74; TEMP 97.7; O2SAT 93
[2019-09-20 15:45] LABS: BASO % 0.4 % (0.0-1.0); EOS # 0.2 10^3/uL (0.0-0.5); EOS % 2.4 % (0.0-3.0); HEMATOCRIT 42.4 % (36.0-47.0); HEMOGLOBIN 12.5 g/dl (12.0-15.5); LYMPH # 1.4 10^3/uL (1.5-5.0); LYMPH % 19.1 % (24.0-44.0); MEAN CORPUSCULAR HEMOGLOBIN 28.7 pg (27.0-33.0); MEAN CORPUSCULAR HGB CONC 29.5 g/dl (32.0-36.5); MEAN CORPUSCULAR VOLUME 97.2 fl (80.0-96.0); MONO # 0.5 10^3/uL (0.0-0.8); MONO % 6.3 % (0.0-5.0); NEUTROPHILS # 5.3 10^3/uL (1.5-8.5); NEUTROPHILS % 71.5 % (36.0-66.0); PLATELET COUNT, AUTOMATED 275 10^3/uL (150-450); RED BLOOD COUNT 4.36 10^6/uL (4.00-5.40); WHITE BLOOD COUNT 7.5 10^3/uL (4.0-10.0)
[2019-09-20 16:15] LABS: PERCENT SATURATION 18.5 % (13.2-45.0)
[2020-09-18 13:20] VITALS: BP 143/77; O2SAT 97
[2020-09-18 13:28] LABS: BASO # 0.1 10^3/uL (0.0-0.2); BASO % 0.7 % (0.0-1.0); EOS # 0.2 10^3/uL (0.0-0.5); EOS % 2.5 % (0.0-3.0); HEMATOCRIT 41.3 % (36.0-47.0); HEMOGLOBIN 12.6 g/dl (12.0-15.5); LYMPH # 2.5 10^3/uL (1.5-5.0); LYMPH % 25.3 % (24.0-44.0); MEAN CORPUSCULAR HEMOGLOBIN 27.6 pg (27.0-33.0); MEAN CORPUSCULAR HGB CONC 30.5 g/dl (32.0-36.5); MEAN CORPUSCULAR VOLUME 90.6 fl (80.0-96.0); MONO # 0.7 10^3/uL (0.0-0.8); MONO % 7.6 % (0.0-5.0); NEUTROPHILS # 6.2 10^3/uL (1.5-8.5); NEUTROPHILS % 63.7 % (36.0-66.0); PLATELET COUNT, AUTOMATED 411 10^3/uL (150-450); RED BLOOD COUNT 4.56 10^6/uL (4.00-5.40); WHITE BLOOD COUNT 9.7 10^3/uL (4.0-10.0)
[2020-09-18 14:07] LABS: PERCENT SATURATION 16.9 % (13.2-45.0)
[2021-03-21 13:57] VITALS: BP 152/74; O2SAT 98
[2021-03-21 13:57] LABS: BASO # 0.1 10^3/uL (0.0-0.2); BASO % 0.9 % (0.0-1.0); EOS # 0.2 10^3/uL (0.0-0.5); EOS % 2.6 % (0.0-3.0); HEMATOCRIT 43.8 % (36.0-47.0); HEMOGLOBIN 13.5 g/dl (12.0-15.5); LYMPH # 2.5 10^3/uL (1.5-5.0); LYMPH % 31.3 % (24.0-44.0); MEAN CORPUSCULAR HEMOGLOBIN 29.1 pg (27.0-33.0); MEAN CORPUSCULAR HGB CONC 30.8 g/dl (32.0-36.5); MEAN CORPUSCULAR VOLUME 94.4 fl (80.0-96.0); MONO # 0.7 10^3/uL (0.0-0.8); MONO % 8.4 % (2.0-8.0); NEUTROPHILS # 4.5 10^3/uL (1.5-8.5); NEUTROPHILS % 56.5 % (36.0-66.0); PLATELET COUNT, AUTOMATED 383 10^3/uL (150-450); RED BLOOD COUNT 4.64 10^6/uL (4.00-5.40)
[2021-03-21 14:32] LABS: ALBUMIN 3.2 GM/DL (3.2-5.2); ALKALINE PHOSPHATASE 84 U/L (45-117); ALT/SGPT 23 U/L (12-78); AST/SGOT 34 U/L (7-37); BILIRUBIN,TOTAL 0.3 MG/DL (0.2-1.0); BLOOD UREA NITROGEN 13 MG/DL (7-18); CALCIUM LEVEL 9.7 MG/DL (8.8-10.2); CARBON DIOXIDE LEVEL 24 MEQ/L (21-32); CHLORIDE LEVEL 105 MEQ/L (98-107); CREATININE FOR GFR 0.68 MG/DL (0.55-1.30); GLOMERULAR FILTRATION RATE > 60.0 (>45); GLUCOSE, FASTING 97 MG/DL (70-100); POTASSIUM SERUM 5.1 MEQ/L (3.5-5.1); SODIUM LEVEL 134 MEQ/L (136-145); TOTAL PROTEIN 8.3 GM/DL (6.4-8.2)
[2021-03-21 15:05] LABS: PERCENT SATURATION 40.3 % (13.2-45.0)
[2021-11-22 13:29] VITALS: BP 143/70; O2SAT 100
[2021-11-22 13:50] LABS: BASO # 0.1 10^3/uL (0.0-0.2); BASO % 0.8 % (0.0-1.0); EOS # 0.2 10^3/uL (0.0-0.5); EOS % 2.2 % (0.0-3.0); HEMATOCRIT 42.6 % (36.0-47.0); HEMOGLOBIN 13.1 g/dl (12.0-15.5); LYMPH # 2.3 10^3/uL (1.5-5.0); LYMPH % 29.4 % (24.0-44.0); MEAN CORPUSCULAR HEMOGLOBIN 29.1 pg (27.0-33.0); MEAN CORPUSCULAR HGB CONC 30.8 g/dl (32.0-36.5); MEAN CORPUSCULAR VOLUME 94.7 fl (80.0-96.0); MONO # 0.6 10^3/uL (0.0-0.8); MONO % 7.9 % (2.0-8.0); NEUTROPHILS # 4.6 10^3/uL (1.5-8.5); NEUTROPHILS % 59.6 % (36.0-66.0); PLATELET COUNT, AUTOMATED 306 10^3/uL (150-450); WHITE BLOOD COUNT 7.8 10^3/uL (4.0-10.0)
[2021-11-22 14:22] LABS: ALBUMIN 3.2 GM/DL (3.2-5.2); ALKALINE PHOSPHATASE 100 U/L (45-117); ALT/SGPT 24 U/L (12-78); AST/SGOT 22 U/L (7-37); BILIRUBIN,TOTAL 0.2 MG/DL (0.2-1.0); BLOOD UREA NITROGEN 10 MG/DL (7-18); CALCIUM LEVEL 9.3 MG/DL (8.8-10.2); CARBON DIOXIDE LEVEL 29 MEQ/L (21-32); CHLORIDE LEVEL 105 MEQ/L (98-107); CREATININE FOR GFR 0.66 MG/DL (0.55-1.30); FERRITIN 45 NG/ML (8-252); GLOMERULAR FILTRATION RATE > 60.0 (>45); GLUCOSE, FASTING 105 MG/DL (70-100); IRON (FE) 106 UG/DL (50-170); PERCENT SATURATION 31.4 % (13.2-45.0); POTASSIUM SERUM 5.1 MEQ/L (3.5-5.1); SODIUM LEVEL 137 MEQ/L (136-145); TOTAL IRON BINDING CAPACITY 338 UG/DL (250-450)
[2022-05-27 15:07] LABS: BASO % 0.4 % (0.0-1.0); EOS # 0.1 10^3/uL (0.0-0.5); EOS % 1.9 % (0.0-3.0); HEMATOCRIT 41.1 % (36.0-47.0); LYMPH # 1.9 10^3/uL (1.5-5.0); LYMPH % 25.1 % (24.0-44.0); MEAN CORPUSCULAR HEMOGLOBIN 30.5 pg (27.0-33.0); MEAN CORPUSCULAR HGB CONC 31.6 g/dl (32.0-36.5); MEAN CORPUSCULAR VOLUME 96.5 fl (80.0-96.0); MONO # 0.7 10^3/uL (0.0-0.8); MONO % 9.3 % (2.0-8.0); NEUTROPHILS # 4.7 10^3/uL (1.5-8.5); PLATELET COUNT, AUTOMATED 365 10^3/uL (150-450); RED BLOOD COUNT 4.26 10^6/uL (4.00-5.40); WHITE BLOOD COUNT 7.5 10^3/uL (4.0-10.0)
[2022-05-27 15:21] VITALS: BP 173/73; O2SAT 96
[2022-05-27 15:45] LABS: ALBUMIN 3.4 GM/DL (3.2-5.2); ALKALINE PHOSPHATASE 90 U/L (45-117); ALT/SGPT 25 U/L (12-78); AST/SGOT 23 U/L (7-37); BILIRUBIN,TOTAL 0.3 MG/DL (0.2-1.0); BLOOD UREA NITROGEN 10 MG/DL (7-18); CALCIUM LEVEL 9.8 MG/DL (8.8-10.2); CARBON DIOXIDE LEVEL 31 MEQ/L (21-32); CHLORIDE LEVEL 104 MEQ/L (98-107); CREATININE FOR GFR 0.64 MG/DL (0.55-1.30); FERRITIN 31 NG/ML (8-252); GLOMERULAR FILTRATION RATE > 60.0 (>45); GLUCOSE, FASTING 94 MG/DL (70-100); IRON (FE) 61 UG/DL (50-170); PERCENT SATURATION 17.3 % (13.2-45.0); POTASSIUM SERUM 4.7 MEQ/L (3.5-5.1); SODIUM LEVEL 140 MEQ/L (136-145); TOTAL IRON BINDING CAPACITY 353 UG/DL (250-450); TOTAL PROTEIN 7.5 GM/DL (6.4-8.2)
[2022-06-10] MEDS: ACETAMINOPHEN TAB 650MG DOSE (2X325MG) PO SCH (13:31)
[2022-06-10] MEDS: diphenhydrAMINE 25MG CAP PO SCH (13:31)
[2022-06-10 13:37] VITALS: BP 146/63; O2SAT 93
[2022-06-10] MEDS: IRON SUCROSE 300 MG in NS 250 ML IV SCH (14:21)
[2022-06-10 16:18] VITALS: BP 151/67; O2SAT 96
[2022-06-17 11:55] VITALS: BP 132/54; O2SAT 98
[2022-06-17] MEDS: ACETAMINOPHEN TAB 650MG DOSE (2X325MG) PO SCH (13:19)
[2022-06-17] MEDS: diphenhydrAMINE 25MG CAP PO SCH (13:19)
[2022-06-17] MEDS: IRON SUCROSE 300 MG in NS 250 ML IV SCH (13:45)
[2022-06-17 15:20] VITALS: BP 150/68; O2SAT 97
[2022-12-10 11:05] LABS: BASO % 0.5 % (0.0-1.0); EOS # 0.3 10^3/uL (0.0-0.5); EOS % 4.3 % (0.0-3.0); HEMATOCRIT 35.5 % (36.0-47.0); HEMOGLOBIN 10.9 g/dl (12.0-15.5); LYMPH # 2.5 10^3/uL (1.5-5.0); MEAN CORPUSCULAR HEMOGLOBIN 29.7 pg (27.0-33.0); MEAN CORPUSCULAR HGB CONC 30.7 g/dl (32.0-36.5); MEAN CORPUSCULAR VOLUME 96.7 fl (80.0-96.0); MONO # 0.6 10^3/uL (0.0-0.8); NEUTROPHILS # 4.4 10^3/uL (1.5-8.5); NEUTROPHILS % 55.7 % (36.0-66.0); PLATELET COUNT, AUTOMATED 458 10^3/uL (150-450); RED BLOOD COUNT 3.67 10^6/uL (4.00-5.40); WHITE BLOOD COUNT 7.9 10^3/uL (4.0-10.0)
[2022-12-10 11:29] VITALS: BP 148/72; O2SAT 98
[2022-12-10 11:36] LABS: ALBUMIN 3.1 G/DL (3.2-5.2); ALKALINE PHOSPHATASE 96 U/L (46-116); ALT/SGPT 12 U/L (7.0-40); AST/SGOT 19 U/L (<34); BILIRUBIN,TOTAL 0.2 MG/DL (0.3-1.2); BLOOD UREA NITROGEN 7 MG/DL (9-23); CALCIUM LEVEL 8.8 MG/DL (8.3-10.6); CARBON DIOXIDE LEVEL 30 MMOL/L (20-31); CHLORIDE LEVEL 104 MMOL/L (98-107); CREATININE FOR GFR 0.48 MG/DL (0.55-1.30); GLOMERULAR FILTRATION RATE > 60.0 (>45); GLUCOSE, FASTING 57 MG/DL (74-106); POTASSIUM SERUM 4.2 MMOL/L (3.5-5.1); SODIUM LEVEL 142 MMOL/L (136-145); TOTAL PROTEIN 7.5 G/DL (5.7-8.2)
[2022-12-10 12:09] LABS: FERRITIN 144.8 NG/ML (7.3-270.7)
[2022-12-10 12:10] LABS: VITAMIN B12 LEVEL 282 PG/ML (211-911)
[2022-12-10 12:12] LABS: FOLATE > 24.0 NG/ML (>5.4); IRON (FE) 41 UG/DL (50-170); PERCENT SATURATION 14.5 % (13.2-45.0); TOTAL IRON BINDING CAPACITY 283 UG/DL (250-425)
[2023-03-18 14:04] VITALS: BP 126/57; O2SAT 90
[2023-03-18 15:30] LABS: BASO % 0.4 % (0.0-1.0); EOS # 0.4 10^3/uL (0.0-0.5); EOS % 4.3 % (0.0-3.0); LYMPH # 1.1 10^3/uL (1.5-5.0); MEAN CORPUSCULAR HEMOGLOBIN 28.8 pg (27.0-33.0); MEAN CORPUSCULAR HGB CONC 32.5 g/dl (32.0-36.5); MEAN CORPUSCULAR VOLUME 88.7 fl (80.0-96.0); MONO # 0.7 10^3/uL (0.0-0.8); MONO % 6.4 % (2.0-8.0); NEUTROPHILS # 7.9 10^3/uL (1.5-8.5); NEUTROPHILS % 77.3 % (36.0-66.0); PLATELET COUNT, AUTOMATED 275 10^3/uL (150-450); RED BLOOD COUNT 4.51 10^6/uL (4.00-5.40); WHITE BLOOD COUNT 10.2 10^3/uL (4.0-10.0)
[2023-03-18 16:22] LABS: ALBUMIN 2.5 G/DL (3.2-5.2); ALKALINE PHOSPHATASE 86 U/L (46-116); ALT/SGPT < 9 U/L (7.0-40); AST/SGOT 10 U/L (<34); BILIRUBIN,TOTAL 0.2 MG/DL (0.3-1.2); BLOOD UREA NITROGEN 20 MG/DL (9-23); CALCIUM LEVEL 9.1 MG/DL (8.3-10.6); CARBON DIOXIDE LEVEL 34 MMOL/L (20-31); CHLORIDE LEVEL 96 MMOL/L (98-107); CREATININE FOR GFR 0.62 MG/DL (0.55-1.30); FERRITIN 190.8 NG/ML (7.3-270.7); GLOMERULAR FILTRATION RATE > 60.0 (>45); GLUCOSE, FASTING 229 MG/DL (74-106); IRON (FE) 19 UG/DL (50-170); PERCENT SATURATION 7.3 % (13.2-45.0); POTASSIUM SERUM 4.2 MMOL/L (3.5-5.1); SODIUM LEVEL 135 MMOL/L (136-145); TOTAL IRON BINDING CAPACITY 261 UG/DL (250-425); TOTAL PROTEIN 6.6 G/DL (5.7-8.2)
[2023-04-20 13:34] VITALS: BP 142/59; O2SAT 95
[2023-07-02 14:01] VITALS: BP 159/67; O2SAT 97
[2023-07-02 15:07] LABS: BASO % 0.5 % (0.0-1.0); EOS # 0.2 10^3/uL (0.0-0.5); EOS % 4.6 % (0.0-3.0); HEMATOCRIT 33.7 % (36.0-47.0); HEMOGLOBIN 10.5 g/dl (12.0-15.5); LYMPH # 0.7 10^3/uL (1.5-5.0); LYMPH % 17.7 % (24.0-44.0); MEAN CORPUSCULAR HEMOGLOBIN 28.7 pg (27.0-33.0); MEAN CORPUSCULAR HGB CONC 31.2 g/dl (32.0-36.5); MEAN CORPUSCULAR VOLUME 92.1 fl (80.0-96.0); MONO # 0.4 10^3/uL (0.0-0.8); MONO % 10.2 % (2.0-8.0); NEUTROPHILS # 2.7 10^3/uL (1.5-8.5); NEUTROPHILS % 66.5 % (36.0-66.0); PLATELET COUNT, AUTOMATED 333 10^3/uL (150-450); RED BLOOD COUNT 3.66 10^6/uL (4.00-5.40); WHITE BLOOD COUNT 4.1 10^3/uL (4.0-10.0)
[2023-07-02 15:51] LABS: IRON (FE) 49 UG/DL (50-170)
[2023-07-02 15:52] LABS: PERCENT SATURATION 17.7 % (13.2-45.0); TOTAL IRON BINDING CAPACITY 277 UG/DL (250-425)
[2023-07-02 16:14] LABS: ALBUMIN 2.9 G/DL (3.2-5.2); ALKALINE PHOSPHATASE 115 U/L (46-116); ALT/SGPT 10 U/L (7.0-40); AST/SGOT 17 U/L (<34); BILIRUBIN,TOTAL < 0.2 MG/DL (0.3-1.2); BLOOD UREA NITROGEN 9 MG/DL (9-23); CALCIUM LEVEL 9.2 MG/DL (8.3-10.6); CARBON DIOXIDE LEVEL 32 MMOL/L (20-31); CHLORIDE LEVEL 102 MMOL/L (98-107); FERRITIN 133.1 NG/ML (7.3-270.7); GLOMERULAR FILTRATION RATE > 60.0 (>39); GLUCOSE, FASTING 47 MG/DL (74-106); MAGNESIUM LEVEL 0.8 MG/DL (1.8-2.4); POTASSIUM SERUM 4.3 MMOL/L (3.5-5.1); SODIUM LEVEL 141 MMOL/L (136-145)
[2023-07-03] MEDS: MAG SULF 1GM/100ML (MAG RUN) 100 ML IV SCH ×2 (08:00→14:10)
[2023-07-03 13:30] VITALS: BP 144/58; O2SAT 97
[2023-07-09 15:56] LABS: ALBUMIN 2.8 G/DL (3.2-5.2); ALKALINE PHOSPHATASE 98 U/L (46-116); ALT/SGPT < 9 U/L (7.0-40); AST/SGOT 9 U/L (<34); BILIRUBIN,TOTAL 0.2 MG/DL (0.3-1.2); BLOOD UREA NITROGEN 8 MG/DL (9-23); CALCIUM LEVEL 8.9 MG/DL (8.3-10.6); CARBON DIOXIDE LEVEL 31 MMOL/L (20-31); CHLORIDE LEVEL 107 MMOL/L (98-107); CREATININE FOR GFR 0.42 MG/DL (0.55-1.30); GLOMERULAR FILTRATION RATE > 60.0 (>39); GLUCOSE, FASTING 90 MG/DL (74-106); POTASSIUM SERUM 4.3 MMOL/L (3.5-5.1); SODIUM LEVEL 148 MMOL/L (136-145); TOTAL PROTEIN 6.5 G/DL (5.7-8.2)
[2023-07-09 16:15] LABS: MAGNESIUM LEVEL 0.8 MG/DL (1.8-2.4)
[2023-07-10 10:05] VITALS: BP 125/56; O2SAT 99
[2023-07-10] MEDS: MAG SULF 1GM/100ML (MAG RUN) 100 ML IV SCH ×2 (11:16→12:38)
[2023-07-14 12:45] VITALS: BP 141/73; O2SAT 97
[2023-07-14] MEDS: MAG SULF 1GM/100ML (MAG RUN) 100 ML IV SCH (13:16)
[2023-07-21 18:25] LABS: BLOOD UREA NITROGEN 14 MG/DL (9-23); CALCIUM LEVEL 9.6 MG/DL (8.3-10.6); CARBON DIOXIDE LEVEL 32 MMOL/L (20-31); CHLORIDE LEVEL 101 MMOL/L (98-107); CREATININE FOR GFR 0.47 MG/DL (0.55-1.30); GLOMERULAR FILTRATION RATE > 60.0 (>39); GLUCOSE, FASTING 95 MG/DL (74-106); POTASSIUM SERUM 4.4 MMOL/L (3.5-5.1); SODIUM LEVEL 143 MMOL/L (136-145)
[2023-07-29 14:07] LABS: BLOOD UREA NITROGEN 10 MG/DL (9-23); CALCIUM LEVEL 9.4 MG/DL (8.3-10.6); CARBON DIOXIDE LEVEL 33 MMOL/L (20-31); CHLORIDE LEVEL 102 MMOL/L (98-107); CREATININE FOR GFR 0.45 MG/DL (0.55-1.30); GLOMERULAR FILTRATION RATE > 60.0 (>39); GLUCOSE, FASTING 64 MG/DL (74-106); MAGNESIUM LEVEL 0.8 MG/DL (1.8-2.4); POTASSIUM SERUM 4.6 MMOL/L (3.5-5.1); SODIUM LEVEL 142 MMOL/L (136-145)
[2023-07-30 08:15] VITALS: BP 120/70; O2SAT 98
[2023-07-30] MEDS: MAG SULF 1GM/100ML (MAG RUN) 100 ML IV SCH ×2 (08:15→11:12)
[2023-08-05 14:40] LABS: ALBUMIN 3.6 G/DL (3.2-5.2); ALKALINE PHOSPHATASE 95 U/L (46-116); ALT/SGPT 10 U/L (7.0-40); AST/SGOT 19 U/L (<34); BILIRUBIN,TOTAL 0.2 MG/DL (0.3-1.2); BLOOD UREA NITROGEN 14 MG/DL (9-23); CALCIUM LEVEL 9.6 MG/DL (8.3-10.6); CARBON DIOXIDE LEVEL 35 MMOL/L (20-31); CHLORIDE LEVEL 101 MMOL/L (98-107); CREATININE FOR GFR 0.47 MG/DL (0.55-1.30); GLOMERULAR FILTRATION RATE > 60.0 (>39); GLUCOSE, FASTING 54 MG/DL (74-106); POTASSIUM SERUM 4.6 MMOL/L (3.5-5.1); SODIUM LEVEL 142 MMOL/L (136-145); TOTAL PROTEIN 7.6 G/DL (5.7-8.2)
[2023-08-05 15:03] LABS: MAGNESIUM LEVEL < 0.5 MG/DL (1.8-2.4)
[2023-08-11 14:57] VITALS: BP 146/61; O2SAT 95
[2023-08-11 15:44] LABS: BLOOD UREA NITROGEN 22 MG/DL (9-23); CALCIUM LEVEL 9.7 MG/DL (8.3-10.6); CARBON DIOXIDE LEVEL 33 MMOL/L (20-31); CHLORIDE LEVEL 101 MMOL/L (98-107); CREATININE FOR GFR 0.55 MG/DL (0.55-1.30); GLOMERULAR FILTRATION RATE > 60.0 (>39); GLUCOSE, FASTING 162 MG/DL (74-106); POTASSIUM SERUM 4.7 MMOL/L (3.5-5.1); SODIUM LEVEL 139 MMOL/L (136-145)
[2023-08-12] MEDS: MAG SULF 1GM/100ML (MAG RUN) 100 ML IV SCH (11:41)
[2023-08-12 11:45] VITALS: BP 127/62; O2SAT 94
[2023-08-19 14:31] LABS: BASO % 0.5 % (0.0-1.0); EOS # 0.2 10^3/uL (0.0-0.5); EOS % 2.5 % (0.0-3.0); HEMATOCRIT 37.6 % (36.0-47.0); HEMOGLOBIN 11.6 g/dl (12.0-15.5); LYMPH # 0.8 10^3/uL (1.5-5.0); LYMPH % 11.8 % (24.0-44.0); MEAN CORPUSCULAR HEMOGLOBIN 29.4 pg (27.0-33.0); MEAN CORPUSCULAR HGB CONC 30.9 g/dl (32.0-36.5); MEAN CORPUSCULAR VOLUME 95.4 fl (80.0-96.0); MONO # 0.5 10^3/uL (0.0-0.8); NEUTROPHILS % 76.9 % (36.0-66.0); PLATELET COUNT, AUTOMATED 266 10^3/uL (150-450); RED BLOOD COUNT 3.94 10^6/uL (4.00-5.40); WHITE BLOOD COUNT 6.5 10^3/uL (4.0-10.0)
[2023-08-19 14:50] LABS: BLOOD UREA NITROGEN 11 MG/DL (9-23); CARBON DIOXIDE LEVEL 39 MMOL/L (20-31); CHLORIDE LEVEL 100 MMOL/L (98-107); CREATININE FOR GFR 0.49 MG/DL (0.55-1.30); GLOMERULAR FILTRATION RATE > 60.0 (>39); GLUCOSE, FASTING 45 MG/DL (74-106); MAGNESIUM LEVEL 1.1 MG/DL (1.8-2.4); POTASSIUM SERUM 4.5 MMOL/L (3.5-5.1); SODIUM LEVEL 144 MMOL/L (136-145)
[2023-08-20 09:10] VITALS: BP 137/62; O2SAT 94
[2023-08-20] MEDS: MAG SULF 1GM/100ML (MAG RUN) 100 ML IV ONE (09:26)
[2023-08-20] MEDS: MAG SULF 1GM/100ML (MAG RUN) 100 ML IV SCH (10:27)
[2023-08-26 14:04] LABS: BASO % 0.7 % (0.0-1.0); EOS # 0.1 10^3/uL (0.0-0.5); HEMATOCRIT 34.5 % (36.0-47.0); LYMPH # 0.6 10^3/uL (1.5-5.0); LYMPH % 13.9 % (24.0-44.0); MEAN CORPUSCULAR HEMOGLOBIN 30.4 pg (27.0-33.0); MEAN CORPUSCULAR HGB CONC 31.9 g/dl (32.0-36.5); MEAN CORPUSCULAR VOLUME 95.3 fl (80.0-96.0); MONO # 0.4 10^3/uL (0.0-0.8); MONO % 9.4 % (2.0-8.0); NEUTROPHILS # 3.2 10^3/uL (1.5-8.5); NEUTROPHILS % 72.8 % (36.0-66.0); PLATELET COUNT, AUTOMATED 256 10^3/uL (150-450); RED BLOOD COUNT 3.62 10^6/uL (4.00-5.40); WHITE BLOOD COUNT 4.4 10^3/uL (4.0-10.0)
[2023-08-26 15:07] LABS: ALBUMIN 3.2 G/DL (3.2-5.2); ALKALINE PHOSPHATASE 98 U/L (46-116); ALT/SGPT < 9 U/L (7.0-40); AST/SGOT 13 U/L (<34); BILIRUBIN,TOTAL 0.2 MG/DL (0.3-1.2); BLOOD UREA NITROGEN 13 MG/DL (9-23); CALCIUM LEVEL 9.8 MG/DL (8.3-10.6); CARBON DIOXIDE LEVEL 35 MMOL/L (20-31); CHLORIDE LEVEL 101 MMOL/L (98-107); CREATININE FOR GFR 0.55 MG/DL (0.55-1.30); GLOMERULAR FILTRATION RATE > 60.0 (>39); GLUCOSE, FASTING 70 MG/DL (74-106); MAGNESIUM LEVEL 1.1 MG/DL (1.8-2.4); POTASSIUM SERUM 4.1 MMOL/L (3.5-5.1); SODIUM LEVEL 143 MMOL/L (136-145)
[2023-08-31] MEDS: MAG SULF 1GM/100ML (MAG RUN) 100 ML IV SCH (12:35)
[2023-08-31 12:43] VITALS: BP 136/63; O2SAT 95
[2023-09-02 12:04] LABS: BLOOD UREA NITROGEN 20 MG/DL (9-23); CALCIUM LEVEL 9.7 MG/DL (8.3-10.6); CARBON DIOXIDE LEVEL 37 MMOL/L (20-31); CHLORIDE LEVEL 98 MMOL/L (98-107); CREATININE FOR GFR 0.53 MG/DL (0.55-1.30); GLOMERULAR FILTRATION RATE > 60.0 (>39); GLUCOSE, FASTING 59 MG/DL (74-106); MAGNESIUM LEVEL 1.2 MG/DL (1.8-2.4); POTASSIUM SERUM 4.4 MMOL/L (3.5-5.1); SODIUM LEVEL 139 MMOL/L (136-145)
[2023-09-03 09:38] VITALS: BP 152/59; O2SAT 93
[2023-09-03] MEDS: MAG SULF 1GM/100ML (MAG RUN) 100 ML IV SCH (10:07)
[2023-09-03] MEDS: SODIUM CHLORIDE 0.9% INJ 10 ML SYR IV PRN (13:15)
[2023-09-09 16:19] LABS: BLOOD UREA NITROGEN 11 MG/DL (9-23); CALCIUM LEVEL 9.2 MG/DL (8.3-10.6); CARBON DIOXIDE LEVEL 36 MMOL/L (20-31); CHLORIDE LEVEL 99 MMOL/L (98-107); CREATININE FOR GFR 0.48 MG/DL (0.55-1.30); GLOMERULAR FILTRATION RATE > 60.0 (>39); GLUCOSE, FASTING 64 MG/DL (74-106); MAGNESIUM LEVEL 0.9 MG/DL (1.8-2.4); POTASSIUM SERUM 4.1 MMOL/L (3.5-5.1); SODIUM LEVEL 141 MMOL/L (136-145)
[2023-09-10 10:25] VITALS: BP 134/59; O2SAT 95
[2023-09-10] MEDS: MAG SULF 1GM/100ML (MAG RUN) 100 ML IV ONE (11:20)
[2023-09-10] MEDS: MAG SULF 1GM/100ML (MAG RUN) 100 ML IV SCH (12:26)
[2023-09-18 09:14] LABS: BLOOD UREA NITROGEN 15 MG/DL (9-23); CALCIUM LEVEL 9.4 MG/DL (8.3-10.6); CARBON DIOXIDE LEVEL 36 MMOL/L (20-31); CHLORIDE LEVEL 101 MMOL/L (98-107); CREATININE FOR GFR 0.56 MG/DL (0.55-1.30); GLOMERULAR FILTRATION RATE > 60.0 (>39); GLUCOSE, FASTING 74 MG/DL (74-106); PHOSPHORUS LEVEL 4.1 MG/DL (2.4-5.1); POTASSIUM SERUM 4.5 MMOL/L (3.5-5.1); SODIUM LEVEL 140 MMOL/L (136-145)
[2024-02-17 10:07] VITALS: BP 154/63; O2SAT 94
[2024-02-17 10:28] LABS: BASO % 0.8 % (0.0-1.0); EOS # 0.1 10^3/uL (0.0-0.5); EOS % 3.2 % (0.0-3.0); HEMATOCRIT 32.4 % (36.0-47.0); HEMOGLOBIN 9.9 g/dl (12.0-15.5); LYMPH # 0.6 10^3/uL (1.5-5.0); LYMPH % 16.1 % (24.0-44.0); MEAN CORPUSCULAR HEMOGLOBIN 27.6 pg (27.0-33.0); MEAN CORPUSCULAR HGB CONC 30.6 g/dl (32.0-36.5); MEAN CORPUSCULAR VOLUME 90.3 fl (80.0-96.0); MONO # 0.4 10^3/uL (0.0-0.8); MONO % 11.6 % (2.0-8.0); NEUTROPHILS # 2.6 10^3/uL (1.5-8.5); PLATELET COUNT, AUTOMATED 292 10^3/uL (150-450); RED BLOOD COUNT 3.59 10^6/uL (4.00-5.40); WHITE BLOOD COUNT 3.8 10^3/uL (4.0-10.0)
[2024-02-17 12:52] LABS: ALBUMIN 3.3 G/DL (3.2-5.2); ALKALINE PHOSPHATASE 72 U/L (46-116); ALT/SGPT < 9 U/L (7.0-40); AST/SGOT 14 U/L (<34); BILIRUBIN,TOTAL 0.2 MG/DL (0.3-1.2); BLOOD UREA NITROGEN 22 MG/DL (9-23); CALCIUM LEVEL 9.9 MG/DL (8.3-10.6); CARBON DIOXIDE LEVEL 30 MMOL/L (20-31); CHLORIDE LEVEL 104 MMOL/L (98-107); CREATININE FOR GFR 0.57 MG/DL (0.55-1.30); FERRITIN 72.5 NG/ML (7.3-270.7); GLOMERULAR FILTRATION RATE > 60.0 (>39); GLUCOSE, FASTING 54 MG/DL (74-106); IRON (FE) 40 UG/DL (50-170); PERCENT SATURATION 12.7 % (13.2-45.0); POTASSIUM SERUM 4.9 MMOL/L (3.5-5.1); SODIUM LEVEL 142 MMOL/L (136-145); TOTAL IRON BINDING CAPACITY 314 UG/DL (250-425); TOTAL PROTEIN 7.1 G/DL (5.7-8.2)
[2024-02-24 09:50] VITALS: BP 133/63; O2SAT 93
[2024-02-24] MEDS: diphenhydrAMINE 25MG CAP PO SCH (10:26)
[2024-02-24] MEDS: ACETAMINOPHEN TAB 650MG DOSE (2X325MG) PO SCH (10:26)
[2024-02-24] MEDS: IRON SUCROSE 200 MG in NS 100 ML IV SCH (10:49)
[2024-02-24 12:02] VITALS: BP 154/55; O2SAT 95
[2024-03-02 10:08] VITALS: BP 137/62; O2SAT 95
[2024-03-02] MEDS: ACETAMINOPHEN TAB 650MG DOSE (2X325MG) PO SCH (10:49)
[2024-03-02] MEDS: diphenhydrAMINE 25MG CAP PO SCH (10:49)
[2024-03-02] MEDS: IRON SUCROSE 200 MG in NS 100 ML IV SCH (11:42)
[2024-03-02 13:30] VITALS: BP 138/68; O2SAT 93
[2024-03-09 09:40] VITALS: BP 140/56; O2SAT 96
[2024-03-09] MEDS: ACETAMINOPHEN TAB 650MG DOSE (2X325MG) PO SCH (09:48)
[2024-03-09] MEDS: diphenhydrAMINE 25MG CAP PO SCH (09:48)
[2024-03-09] MEDS: IRON SUCROSE 200 MG in NS 100 ML IV SCH (10:00)
[2024-03-09 11:15] VITALS: BP 139/62; O2SAT 96
[2024-03-16 09:00] VITALS: BP 136/69; O2SAT 94
[2024-03-16] MEDS: ACETAMINOPHEN TAB 650MG DOSE (2X325MG) PO SCH (10:40)
[2024-03-16] MEDS: diphenhydrAMINE 25MG CAP PO SCH (10:40)
[2024-03-16] MEDS: IRON SUCROSE 200 MG in NS 100 ML IV SCH (11:11)
[2024-03-16 12:32] VITALS: BP 130/68; O2SAT 93
[2024-03-17 09:00] VITALS: BP 136/69; O2SAT 94
[~2024-08-16] VITALS: Ht 152.4 cm; Wt 66.3 kg
[~2024-08-16 09:03] MED LIST changes: -CYCL5TAB PO; +CYCL5TAB4 PO; -DOXY-323 PO; +DOXY-441 PO; +GLIP10TA15 PO; -GLIP10TA6 PO; +MAG SULF 1GM/100ML (MAG RUN) 100 ML IV ONE; +MAG SULF 1GM/100ML (MAG RUN) 100 ML IV SCH; +MAG SULF 1GM/100ML (MAG RUN) IV SCH; +SODIUM CHLORIDE 0.9% INJ 10 ML SYR IV PRN; +TRIA1CR80 TOP
[2024-08-16 09:34] VITALS: BP 121/61; O2SAT 86
[2024-08-16 09:34] LABS: BASO % 0.4 % (0.0-1.0); EOS # 0.1 10^3/uL (0.0-0.5); EOS % 2.3 % (0.0-3.0); LYMPH # 0.4 10^3/uL (1.5-5.0); LYMPH % 7.4 % (24.0-44.0); MEAN CORPUSCULAR HGB CONC 30.3 g/dl (32.0-36.5); MEAN CORPUSCULAR VOLUME 99.1 fl (80.0-96.0); MONO # 0.4 10^3/uL (0.0-0.8); MONO % 7.6 % (2.0-8.0); NEUTROPHILS % 82.1 % (36.0-66.0); PLATELET COUNT, AUTOMATED 265 10^3/uL (150-450); RED BLOOD COUNT 3.33 10^6/uL (4.00-5.40); WHITE BLOOD COUNT 4.9 10^3/uL (4.0-10.0)
[2024-08-16] MEDS ORDERED: RA M500C PO (09:41)
[2024-08-16 10:16] LABS: IRON (FE) 34 UG/DL (50-170); PERCENT SATURATION 12.6 % (13.2-45.0); TOTAL IRON BINDING CAPACITY 270 UG/DL (250-425)
[2024-08-16 10:18] LABS: FERRITIN 155.6 NG/ML (7.3-270.7)
[2024-08-16 10:28] LABS: ALBUMIN 2.7 G/DL (3.2-5.2); ALKALINE PHOSPHATASE 95 U/L (46-116); ALT/SGPT < 9 U/L (7.0-40); AST/SGOT 13 U/L (<34); BILIRUBIN,TOTAL 0.2 MG/DL (0.3-1.2); BLOOD UREA NITROGEN 15 MG/DL (9-23); CALCIUM LEVEL 9.5 MG/DL (8.3-10.6); CARBON DIOXIDE LEVEL > 40.0 MMOL/L (20-31); CHLORIDE LEVEL 96 MMOL/L (98-107); CREATININE FOR GFR 0.46 MG/DL (0.55-1.30); GLOMERULAR FILTRATION RATE > 60.0 (>39); GLUCOSE, FASTING 192 MG/DL (74-106); POTASSIUM SERUM 4.6 MMOL/L (3.5-5.1); SODIUM LEVEL 142 MMOL/L (136-145); TOTAL PROTEIN 7.1 G/DL (5.7-8.2)
[2024-08-16] MEDS ORDERED: ZOLO100T PO (13:34)
[2024-08-16] MEDS ORDERED: SLOWTAB2 PO (13:34)
[2024-08-20] MEDS ORDERED: DOXY100T PO (12:06)
[2024-08-20] MEDS ORDERED: PRED20TA PO (12:06)
[2024-08-20] MEDS ORDERED: CEFD300CAP PO (12:06)
[2024-08-20] MEDS ORDERED: ALBU8.5H INH (12:06)
[2024-08-20] MEDS ORDERED: VALA500T5 PO (12:06)
== END 2024-09-11 | disposition expired ==
LOC: M ONCM 09-11
PROVIDERS: ATTEND Internal Medicine Medical Oncology
DX: D50.9 Iron deficiency anemia, unspecified (principal); R91.8 Other nonspecific abnormal finding of lung field; E83.42 Hypomagnesemia; F17.210 Nicotine dependence, cigarettes, uncomplicated; J44.9 Chronic obstructive pulmonary disease, unspecified; E11.9 Type 2 diabetes mellitus without complications; Z79.899 Other long term (current) drug therapy; Z79.84 Long term (current) use of oral hypoglycemic drugs; Z99.81 Dependence on supplemental oxygen; R53.83 Other fatigue
CPT/HCPCS: 36415; 80048; 80053; 82375; 82607; 82668; 82728; 82746; 83520; 83550; 83735; 84100; 85025; 85027; 88300; 96365; 96366; 96375; G0463; J1100; J1750; J1756; J3475

== ENCOUNTER 2024-08-16 10:16 | Inpatient (IN) | payer MEDICARE, MEDICAID ==
[~2024-08-16] VITALS: Ht 152.4 cm; Wt 60.6 kg
[2024-08-16] MEDS: VITAMIN D 1,000 INTERNATIONAL UNITS TABLET PO SCH (09:00)
[~2024-08-16 10:16] MED LIST changes: +CYCL5TAB PO; -CYCL5TAB4 PO; -MAG SULF 1GM/100ML (MAG RUN) 100 ML IV ONE; -MAG SULF 1GM/100ML (MAG RUN) 100 ML IV SCH; -MAG SULF 1GM/100ML (MAG RUN) IV SCH; +RA M500C PO; -SODIUM CHLORIDE 0.9% INJ 10 ML SYR IV PRN
[2024-08-16] MEDS ORDERED: IPRATROPIUM 0.5MG/ALBUTEROL 2.5MG INH SOL UD 3ML (DUONEB) NEB PRN (11:50)
[2024-08-16] MEDS: methylPREDNISolone 125MG 2ML VIAL IV ONE (11:50)
[2024-08-16] MEDS ORDERED: ACETAMINOPHEN 325 MG TAB PO PRN (13:15)
[2024-08-16] MEDS ORDERED: SLOWTAB2 PO (13:34)
[2024-08-16] MEDS ORDERED: ZOLO100T PO (13:34)
[2024-08-16] MEDS ORDERED: HOME MED LIST COMPLETE! XX SCH (13:35)
[2024-08-16 14:00] LABS: BASO % 0.5 % (0.0-1.0); EOS # 0.1 10^3/uL (0.0-0.5); EOS % 1.5 % (0.0-3.0); HEMATOCRIT 32.2 % (36.0-47.0); HEMOGLOBIN 9.8 g/dl (12.0-15.5); LYMPH # 0.6 10^3/uL (1.5-5.0); LYMPH % 9.4 % (24.0-44.0); MEAN CORPUSCULAR HEMOGLOBIN 30.2 pg (27.0-33.0); MEAN CORPUSCULAR HGB CONC 30.4 g/dl (32.0-36.5); MEAN CORPUSCULAR VOLUME 99.4 fl (80.0-96.0); MONO # 0.4 10^3/uL (0.0-0.8); MONO % 7.5 % (2.0-8.0); NEUTROPHILS # 4.7 10^3/uL (1.5-8.5); NEUTROPHILS % 80.9 % (36.0-66.0); PLATELET COUNT, AUTOMATED 291 10^3/uL (150-450); RED BLOOD COUNT 3.24 10^6/uL (4.00-5.40); WHITE BLOOD COUNT 5.9 10^3/uL (4.0-10.0)
[2024-08-16] MEDS ORDERED: ISOVUE-370 76% 100ML VIAL As Ordered ONE (14:05)
[2024-08-16 14:13] LABS: INR 1.29; PROTHROMBIN TIME 15.7 SECONDS (12.5-14.5)
[2024-08-16 14:15] LABS: ABG BASE EXCESS 14.5 (-2.0-2.0); ABG O2 SATURATION 89.5 % (95.0-99.0); ABG PARTIAL PRESSURE O2 60.3 mmHg (75.0-100.0); ABG STANDARD HCO3 38.2 MMOL/L. (22.0-26.0); ABG TOTAL CO2 45.3 MMOL/L (23.0-31.0); ABG pH (ARTERIAL) 7.368 UNITS (7.350-7.450)
[2024-08-16 14:19] LABS: VENOUS BASE EXCESS 10.5 (-2.0-2.0); VENOUS HCO3 38.3 MMOL/L (23.0-27.0); VENOUS O2 SATURATION 77.3 % (60.0-80.0); VENOUS PARTIAL PRESSURE CO2 69.2 mmHg (38.0-50.0); VENOUS PARTIAL PRESSURE O2 41.6 mmHg (30.0-50.0); VENOUS PH 7.361 UNITS (7.330-7.430); VENOUS STANDARD HCO3 33.8 MMOL/L; VENOUS TOTAL CO2 40.4 MMOL/L (24.0-28.0)
[2024-08-16 14:19] LABS: ABG PARTIAL PRESSURE CO2 76.4 mmHg (35.0-45.0)
[2024-08-16 14:36] LABS: THYROID STIMULATING HORMONE 1.003 uIU/ML (0.55-4.78)
[2024-08-16 14:40] LABS: PROCALCITONIN 0.08 ng/ml
[2024-08-16 14:59] LABS: ALBUMIN 2.7 G/DL (3.2-5.2); ALKALINE PHOSPHATASE 99 U/L (46-116); ALT/SGPT < 9 U/L (7.0-40); AST/SGOT 9 U/L (<34); BILIRUBIN,DIRECT < 0.1 MG/DL (<0.4); BILIRUBIN,TOTAL 0.3 MG/DL (0.3-1.2); BLOOD UREA NITROGEN 13 MG/DL (9-23); CALCIUM LEVEL 9.8 MG/DL (8.3-10.6); CARBON DIOXIDE LEVEL > 40.0 MMOL/L (20-31); CHLORIDE LEVEL 95 MMOL/L (98-107); CREATININE FOR GFR 0.42 MG/DL (0.55-1.30); GLOMERULAR FILTRATION RATE > 60.0 (>39); GLUCOSE, FASTING 178 MG/DL (74-106); POTASSIUM SERUM 4.5 MMOL/L (3.5-5.1); SODIUM LEVEL 143 MMOL/L (136-145); TOTAL PROTEIN 7.2 G/DL (5.7-8.2)
[2024-08-16] MEDS ORDERED: DEXTROSE 50% 50ML SYRINGE IV PRN (15:10)
[2024-08-16] MEDS ORDERED: NITROGLYCERIN 0.4MG SUBL TABLET SL PRN (15:10)
[2024-08-16] MEDS ORDERED: ALBUTEROL 90 MCG/ACT 8GM HFA INHALER INH PRN (15:10)
[2024-08-16] MEDS ORDERED: GLUCOSE 4 GM CHEW PO PRN (15:10)
[2024-08-16] MEDS ORDERED: GLUCAGON INJ 1MG VIAL SC PRN (15:10)
[2024-08-16] MEDS: FUROSEMIDE 20 MG TAB PO SCH (15:40)
[2024-08-16] MEDS: MAG SULF 1GM/100ML (MAG RUN) 1 GM in IV 1 EA IV SCH ×2 (15:40→21:36)
[2024-08-16] MEDS: INSULIN LISPRO (NovoLOG) PER UNIT SC SCH ×2 (17:30→21:37)
[2024-08-16] MEDS: RIVAROXABAN 20MG TAB (XARELTO) PO SCH (21:36)
[2024-08-16] MEDS: SIMVASTATIN 20 MG TAB PO SCH (21:36)
[2024-08-16] MEDS: SERTRALINE 100 MG TAB PO SCH (21:36)
[2024-08-16] MEDS: METOPROLOL TART 50 MG TAB PO SCH (21:37)
[2024-08-17 06:56] LABS: HEMATOCRIT 34.7 % (36.0-47.0); HEMOGLOBIN 10.5 g/dl (12.0-15.5); MEAN CORPUSCULAR HEMOGLOBIN 29.9 pg (27.0-33.0); MEAN CORPUSCULAR HGB CONC 30.3 g/dl (32.0-36.5); MEAN CORPUSCULAR VOLUME 98.9 fl (80.0-96.0); PLATELET COUNT, AUTOMATED 306 10^3/uL (150-450); RED BLOOD COUNT 3.51 10^6/uL (4.00-5.40); WHITE BLOOD COUNT 3.8 10^3/uL (4.0-10.0)
[2024-08-17 07:57] LABS: ALBUMIN 2.7 G/DL (3.2-5.2); ALKALINE PHOSPHATASE 102 U/L (46-116); ALT/SGPT < 9 U/L (7.0-40); AST/SGOT 8 U/L (<34); BILIRUBIN,TOTAL 0.3 MG/DL (0.3-1.2); BLOOD UREA NITROGEN 19 MG/DL (9-23); CARBON DIOXIDE LEVEL > 40.0 MMOL/L (20-31); CHLORIDE LEVEL 97 MMOL/L (98-107); CREATININE FOR GFR 0.44 MG/DL (0.55-1.30); GLOMERULAR FILTRATION RATE > 60.0 (>39); GLUCOSE, FASTING 203 MG/DL (74-106); POTASSIUM SERUM 5.1 MMOL/L (3.5-5.1); SODIUM LEVEL 139 MMOL/L (136-145); TOTAL PROTEIN 7.4 G/DL (5.7-8.2)
[2024-08-17 15:11] VITALS: BP 142/62; TEMP 97.5; O2SAT 89
[2024-08-17 20:30] VITALS: BP 152/65; TEMP 97.9; O2SAT 96
[2024-08-17 21:00] VITALS: O2SAT 89
[2024-08-18] VITALS (12 sets, daily range): BP systolic 148–164; BP diastolic 51–61; TEMP 97.2–97.5; O2SAT 90–99
[2024-08-18 05:39] LABS: BASO % 0.6 % (0.0-1.0); EOS # 0.1 10^3/uL (0.0-0.5); EOS % 1.5 % (0.0-3.0); HEMATOCRIT 36.8 % (36.0-47.0); HEMOGLOBIN 11.1 g/dl (12.0-15.5); LYMPH # 0.4 10^3/uL (1.5-5.0); LYMPH % 7.9 % (24.0-44.0); MEAN CORPUSCULAR HEMOGLOBIN 30.2 pg (27.0-33.0); MEAN CORPUSCULAR HGB CONC 30.2 g/dl (32.0-36.5); MONO # 0.4 10^3/uL (0.0-0.8); MONO % 8.1 % (2.0-8.0); NEUTROPHILS # 4.3 10^3/uL (1.5-8.5); NEUTROPHILS % 81.5 % (36.0-66.0); PLATELET COUNT, AUTOMATED 326 10^3/uL (150-450); RED BLOOD COUNT 3.68 10^6/uL (4.00-5.40); WHITE BLOOD COUNT 5.3 10^3/uL (4.0-10.0)
[2024-08-18 06:08] LABS: BLOOD UREA NITROGEN 20 MG/DL (9-23); CARBON DIOXIDE LEVEL > 40.0 MMOL/L (20-31); CHLORIDE LEVEL 98 MMOL/L (98-107); CREATININE FOR GFR 0.43 MG/DL (0.55-1.30); GLOMERULAR FILTRATION RATE > 60.0 (>39); GLUCOSE, FASTING 159 MG/DL (74-106); MAGNESIUM LEVEL 1.7 MG/DL (1.8-2.4); SODIUM LEVEL 144 MMOL/L (136-145)
[2024-08-18] MEDS: MAG SULF 1GM/100ML (MAG RUN) 1 GM in IV 1 EA IV SCH (09:04)
[2024-08-18] MEDS ORDERED: cefTRIAXone SOD 1 GM in D5W MINI-BAG PLUS 50 ML IV SCH (11:00)
[2024-08-18] MEDS: DOXYCYCLINE HYCLATE 100MG TABLET PO SCH (11:36)
[2024-08-18] MEDS: cefTRIAXone SOD 2 GM in D5W MINI-BAG PLUS 50 ML IV SCH (11:36)
[2024-08-18 12:24] LABS: PROCALCITONIN 0.07 ng/ml
[2024-08-19] VITALS (13 sets, daily range): BP systolic 132–163; BP diastolic 54–59; TEMP 97.2–97.7; O2SAT 77–97
[2024-08-19] MEDS: valACYclovir HCL 500 MG TAB PO SCH (08:26)
[2024-08-19 09:30] LABS: BASO % 0.7 % (0.0-1.0); EOS # 0.1 10^3/uL (0.0-0.5); EOS % 2.2 % (0.0-3.0); HEMATOCRIT 35.7 % (36.0-47.0); HEMOGLOBIN 10.6 g/dl (12.0-15.5); LYMPH # 0.4 10^3/uL (1.5-5.0); MEAN CORPUSCULAR HGB CONC 29.7 g/dl (32.0-36.5); MEAN CORPUSCULAR VOLUME 101.1 fl (80.0-96.0); MONO # 0.4 10^3/uL (0.0-0.8); MONO % 8.8 % (2.0-8.0); NEUTROPHILS # 3.6 10^3/uL (1.5-8.5); NEUTROPHILS % 80.1 % (36.0-66.0); PLATELET COUNT, AUTOMATED 289 10^3/uL (150-450); RED BLOOD COUNT 3.53 10^6/uL (4.00-5.40); WHITE BLOOD COUNT 4.5 10^3/uL (4.0-10.0)
[2024-08-19 10:10] LABS: BLOOD UREA NITROGEN 19 MG/DL (9-23); CALCIUM LEVEL 10.4 MG/DL (8.3-10.6); CARBON DIOXIDE LEVEL > 40.0 MMOL/L (20-31); CHLORIDE LEVEL 99 MMOL/L (98-107); CREATININE FOR GFR 0.42 MG/DL (0.55-1.30); GLOMERULAR FILTRATION RATE > 60.0 (>39); GLUCOSE, FASTING 195 MG/DL (74-106); POTASSIUM SERUM 4.9 MMOL/L (3.5-5.1); SODIUM LEVEL 141 MMOL/L (136-145)
[2024-08-20] MEDS: IPRATROPIUM 0.5MG/ALBUTEROL 2.5MG INH SOL UD 3ML (DUONEB) INH PRN (03:47)
[2024-08-20 04:00] VITALS: BP 137/46; TEMP 97.3; O2SAT 89
[2024-08-20] MEDS: CEFDINIR 300 MG CAP (OMNICEF) PO SCH (08:41)
[2024-08-20 08:44] VITALS: BP 156/62
[2024-08-20 12:00] VITALS: BP 164/78; TEMP 97.3; O2SAT 96
[2024-08-20] MEDS ORDERED: DOXY100T PO (12:06)
[2024-08-20] MEDS ORDERED: VALA500T5 PO (12:06)
[2024-08-20] MEDS ORDERED: CEFD300CAP PO (12:06)
[2024-08-20] MEDS ORDERED: ALBU8.5H INH (12:06)
[2024-08-20] MEDS ORDERED: PRED20TA PO (12:06)
== END 2024-08-20 15:01 | disposition home health service (06) | DRG 189 ==
LOC: M ED 10:16 → M ED INP 13:11 → M MSPAV 08-17 15:28
PROVIDERS: ADMIT Hospitalist; ATTEND Hospitalist
PROC: B246ZZZ Ultrasonography of Right and Left Heart (ICD-10-PCS; principal; 2024-08-17)
DX: J96.11 Chronic respiratory failure with hypoxia (principal); J90 Pleural effusion, not elsewhere classified; J44.9 Chronic obstructive pulmonary disease, unspecified; I10 Essential (primary) hypertension; E11.9 Type 2 diabetes mellitus without complications; J96.12 Chronic respiratory failure with hypercapnia; G40.909 Epilepsy, unspecified, not intractable, without status epilepticus; K21.9 Gastro-esophageal reflux disease without esophagitis; Z79.899 Other long term (current) drug therapy; Z88.1 Allergy status to other antibiotic agents; Z88.8 Allergy status to other drugs, medicaments and biological substances; Z91.040 Latex allergy status; Z87.891 Personal history of nicotine dependence; Z85.118 Personal history of other malignant neoplasm of bronchus and lung; Z99.81 Dependence on supplemental oxygen; Z92.3 Personal history of irradiation

== ENCOUNTER → 2024-09-01 | Outpatient (REF) | payer MEDICARE, MEDICAID ==
[~2024-09-01] MED LIST changes: +ALBU8.5H INH; +CEFD300CAP PO; +SLOWTAB2 PO
[2024-09-01 14:26] LABS: BLOOD UREA NITROGEN 15 MG/DL (9-23); CALCIUM LEVEL 10.5 MG/DL (8.3-10.6); CARBON DIOXIDE LEVEL > 40.0 MMOL/L (20-31); CHLORIDE LEVEL 104 MMOL/L (98-107); CREATININE FOR GFR 0.47 MG/DL (0.55-1.30); GLOMERULAR FILTRATION RATE > 60.0 (>39); GLUCOSE, FASTING 242 MG/DL (74-106); MAGNESIUM LEVEL 1.3 MG/DL (1.8-2.4); SODIUM LEVEL 144 MMOL/L (136-145)
== END ==
LOC: M SHH 13:25
PROVIDERS: ATTEND Family Medicine
DX: E61.2 Magnesium deficiency (principal)

== ENCOUNTER 2024-09-07 15:11 | Inpatient (IN) | payer MEDICARE, MEDICAID ==
[~2024-09-07 15:11] MED LIST changes: -CYCL5TAB PO; +CYCL5TAB4 PO
[2024-09-07 16:57] LABS: BASO % 0.2 % (0.0-1.0); EOS % 0.9 % (0.0-3.0); HEMATOCRIT 34.2 % (36.0-47.0); HEMOGLOBIN 9.9 g/dl (12.0-15.5); LYMPH # 0.3 10^3/uL (1.5-5.0); LYMPH % 7.7 % (24.0-44.0); MEAN CORPUSCULAR HEMOGLOBIN 29.8 pg (27.0-33.0); MEAN CORPUSCULAR HGB CONC 28.9 g/dl (32.0-36.5); MONO # 0.3 10^3/uL (0.0-0.8); MONO % 6.1 % (2.0-8.0); NEUTROPHILS # 3.6 10^3/uL (1.5-8.5); NEUTROPHILS % 84.9 % (36.0-66.0); PLATELET COUNT, AUTOMATED 304 10^3/uL (150-450); RED BLOOD COUNT 3.32 10^6/uL (4.00-5.40); WHITE BLOOD COUNT 4.3 10^3/uL (4.0-10.0)
[2024-09-07 17:18] LABS: IRON (FE) 20 UG/DL (50-170); PERCENT SATURATION 7.7 % (13.2-45.0); TOTAL IRON BINDING CAPACITY 261 UG/DL (250-425)
[2024-09-07 17:56] LABS: ALBUMIN 2.8 G/DL (3.2-5.2); ALKALINE PHOSPHATASE 101 U/L (35-104); ALT/SGPT 10 U/L (7.0-40); AST/SGOT 30 U/L (<34); BILIRUBIN,DIRECT < 0.1 MG/DL (<0.4); BILIRUBIN,TOTAL 0.3 MG/DL (0.3-1.2); BLOOD UREA NITROGEN 20 MG/DL (9-23); CALCIUM LEVEL 10.2 MG/DL (8.3-10.6); CARBON DIOXIDE LEVEL 38 MMOL/L (20-31); CHLORIDE LEVEL 107 MMOL/L (98-107); CREATININE FOR GFR 0.44 MG/DL (0.55-1.30); GLOMERULAR FILTRATION RATE > 60.0 (>39); GLUCOSE, FASTING 167 MG/DL (74-106); POTASSIUM SERUM 6.3 MMOL/L (3.5-5.1); SODIUM LEVEL 144 MMOL/L (136-145); THYROID STIMULATING HORMONE 1.191 uIU/ML (0.55-4.78); THYROXINE (T4) 4.8 UG/DL (4.5-10.9); TOTAL PROTEIN 7.6 G/DL (5.7-8.2)
[2024-09-07] MEDS: PATIROMER SORBITEX CALCIUM 8.4 GM POWDER PACKET (VELTASSA) PO ONE (19:24)
[2024-09-07] MEDS: CALCIUM CHLORIDE 10% 1 GM in D5W 100 ML IV ONE (19:24)
[2024-09-07] MEDS: DEXTROSE 50% 50ML SYRINGE IV STA (19:24)
[2024-09-07] MEDS: HumuLIN R (REGULAR) INSULIN (NovoLIN R) **100U/ML** PER UNIT IV STA (19:25)
[2024-09-07] MEDS: FUROSEMIDE 40MG/4ML VIAL IV ONE (19:25)
[2024-09-07] MEDS ORDERED: HOME MED LIST COMPLETE! XX SCH (21:20)
[2024-09-07 22:37] LABS: PHOSPHORUS LEVEL 3.1 MG/DL (2.4-5.1)
[2024-09-07] MEDS: IPRATROPIUM 0.5MG/ALBUTEROL 2.5MG INH SOL UD 3ML (DUONEB) NEB ONE (22:41)
[2024-09-07 22:42] LABS: URIC ACID 8.8 MG/DL (3.1-7.8)
[2024-09-07] MEDS ORDERED: ACETAMINOPHEN 325 MG TAB PO PRN (22:50)
[2024-09-07] MEDS ORDERED: ALBUTEROL SULFATE 2.5MG/0.5ML INH NEB SOLN NEB PRN (22:50)
[2024-09-07] MEDS ORDERED: ALBUTEROL 90 MCG/ACT 8GM HFA INHALER INH PRN (23:00)
[2024-09-07] MEDS: methylPREDNISolone 125MG 2ML VIAL IV ONE (23:03)
[2024-09-07 23:08] LABS: ABG HCO3 34.1 MMOL/L (22.0-26.0); ABG O2 SATURATION 85.7 % (95.0-99.0); ABG PARTIAL PRESSURE O2 53.5 mmHg (75.0-100.0); ABG STANDARD HCO3 29.7 MMOL/L. (22.0-26.0); ABG TOTAL CO2 36.3 MMOL/L (23.0-31.0); ABG pH (ARTERIAL) 7.297 UNITS (7.350-7.450)
[2024-09-07 23:12] LABS: ABG PARTIAL PRESSURE CO2 71.4 mmHg (35.0-45.0)
[2024-09-07] MEDS: METOPROLOL TART 50 MG TAB PO SCH (23:59)
[2024-09-07] MEDS: SERTRALINE 100 MG TAB PO SCH (23:59)
[2024-09-08] MEDS: levETIRAcetam 250MG TABLET (KEPPRA) PO SCH
[2024-09-08] MEDS: RIVAROXABAN 20MG TAB (XARELTO) PO SCH
[2024-09-08] MEDS: SIMVASTATIN 20 MG TAB PO SCH
[2024-09-08 00:10] LABS: BLOOD UREA NITROGEN 17 MG/DL (9-23); CALCIUM LEVEL 11.2 MG/DL (8.3-10.6); CARBON DIOXIDE LEVEL 40 MMOL/L (20-31); CHLORIDE LEVEL 103 MMOL/L (98-107); CREATININE FOR GFR 0.44 MG/DL (0.55-1.30); GLOMERULAR FILTRATION RATE > 60.0 (>39); GLUCOSE, FASTING 157 MG/DL (74-106); POTASSIUM SERUM 5.1 MMOL/L (3.5-5.1); SODIUM LEVEL 143 MMOL/L (136-145)
[2024-09-08 00:17] LABS: PROCALCITONIN 0.15 ng/ml
[2024-09-08] MEDS: DOXYCYCLINE HYCLATE 100 MG in DEXTROSE 5% (D5W) MINI-BAG PLU 100 ML IV SCH (01:23)
[2024-09-08] MEDS: LORazepam 2 MG/ML 1ML VIAL IV PRN ×2 (01:28→22:42)
[2024-09-08] MEDS ORDERED: IPRATROPIUM 0.5MG/ALBUTEROL 2.5MG INH SOL UD 3ML (DUONEB) NEB SCH (02:00)
[2024-09-08] MEDS: IPRATROPIUM 0.5MG/ALBUTEROL 2.5MG INH SOL UD 3ML (DUONEB) NEB SCH (04:00)
[2024-09-08 04:53] LABS: HEMATOCRIT 32.9 % (36.0-47.0); HEMOGLOBIN 9.4 g/dl (12.0-15.5); MEAN CORPUSCULAR HEMOGLOBIN 29.4 pg (27.0-33.0); MEAN CORPUSCULAR HGB CONC 28.6 g/dl (32.0-36.5); MEAN CORPUSCULAR VOLUME 102.8 fl (80.0-96.0); PLATELET COUNT, AUTOMATED 301 10^3/uL (150-450); WHITE BLOOD COUNT 5.5 10^3/uL (4.0-10.0)
[2024-09-08] MEDS: methylPREDNISolone 125MG 2ML VIAL IV SCH (05:01)
[2024-09-08 05:39] LABS: ALBUMIN 2.6 G/DL (3.2-5.2); ALKALINE PHOSPHATASE 100 U/L (35-104); ALT/SGPT < 9 U/L (7.0-40); AST/SGOT 10 U/L (<34); BILIRUBIN,TOTAL 0.3 MG/DL (0.3-1.2); BLOOD UREA NITROGEN 17 MG/DL (9-23); CALCIUM LEVEL 11.2 MG/DL (8.3-10.6); CARBON DIOXIDE LEVEL 37 MMOL/L (20-31); CHLORIDE LEVEL 104 MMOL/L (98-107); CREATININE FOR GFR 0.49 MG/DL (0.55-1.30); GLOMERULAR FILTRATION RATE > 60.0 (>39); GLUCOSE, FASTING 206 MG/DL (74-106); POTASSIUM SERUM 6.1 MMOL/L (3.5-5.1); SODIUM LEVEL 141 MMOL/L (136-145); TOTAL PROTEIN 7.2 G/DL (5.7-8.2)
[2024-09-08 05:54] LABS: ABG BASE EXCESS 7.9 (-2.0-2.0); ABG O2 SATURATION 92.7 % (95.0-99.0); ABG PARTIAL PRESSURE O2 73.1 mmHg (75.0-100.0); ABG STANDARD HCO3 31.6 MMOL/L. (22.0-26.0); ABG TOTAL CO2 39.5 MMOL/L (23.0-31.0); ABG pH (ARTERIAL) 7.275 UNITS (7.350-7.450)
[2024-09-08 05:55] LABS: ABG PARTIAL PRESSURE CO2 81.5 mmHg (35.0-45.0)
[2024-09-08] MEDS: DEXTROSE 50% 50ML SYRINGE IV STA (06:50)
[2024-09-08] MEDS: FUROSEMIDE 100MG/10ML VIAL IV STA (06:50)
[2024-09-08] MEDS: CALCIUM GLUCONATE 1,000 MG in DEXTROSE 5% (D5W) MINI-BAG PLU 100 ML IV STA (06:51)
[2024-09-08] MEDS: HumuLIN R (REGULAR) INSULIN (NovoLIN R) **100U/ML** PER UNIT IV STA (06:51)
[2024-09-08] MEDS: TIOTROPIUM INHALER/CAPSULE (SPIRIVA) INH SCH (08:09)
[2024-09-08] MEDS: ADVAIR HFA 115/21MCG INHALER INH SCH (08:09)
[2024-09-08 08:51] LABS: BLOOD UREA NITROGEN 18 MG/DL (9-23); CALCIUM LEVEL 11.4 MG/DL (8.3-10.6); CARBON DIOXIDE LEVEL 37 MMOL/L (20-31); CHLORIDE LEVEL 104 MMOL/L (98-107); CREATININE FOR GFR 0.51 MG/DL (0.55-1.30); GLOMERULAR FILTRATION RATE > 60.0 (>39); GLUCOSE, FASTING 270 MG/DL (74-106); POTASSIUM SERUM 5.6 MMOL/L (3.5-5.1); SODIUM LEVEL 141 MMOL/L (136-145)
[2024-09-08] MEDS ORDERED: DOCUSATE SODIUM 100MG CAPSULE PO SCH (09:00)
[2024-09-08] MEDS ORDERED: FUROSEMIDE 40MG/4ML VIAL IV SCH (09:00)
[2024-09-08] MEDS: PATIROMER SORBITEX CALCIUM 8.4 GM POWDER PACKET (VELTASSA) PO STA (09:15)
[2024-09-08] MEDS ORDERED: ONDANSETRON 4MG 2ML VIAL IV PRN (09:20)
[2024-09-08] MEDS ORDERED: SCOPOLAMINE 1MG TRANSDERMAL PATCH TOP PRN (09:20)
[2024-09-08] MEDS: VITAMIN D 1,000 INTERNATIONAL UNITS TABLET PO SCH (09:51)
[2024-09-08] MEDS: PANTOPRAZOLE 40MG VIAL IV SCH (09:52)
[2024-09-08 16:15] VITALS: BP 114/58; TEMP 97.9; O2SAT 95
[2024-09-08 20:12] VITALS: O2SAT 95
[2024-09-08] MEDS ORDERED: ACETAMINOPHEN 500 MG TAB PO SCH (21:00)
[2024-09-08] MEDS ORDERED: levETIRAcetam INJection 500 MG in DEXTROSE 5% (D5W) MINI-BAG PLU 100 ML IV SCH (21:00)
[2024-09-09] MEDS ORDERED: ENOXAPARIN 60MG/0.6ML SYRINGE (J1650 PER 10MG) SC SCH
[2024-09-09] MEDS: LORazepam 0.5 MG TAB PO PRN (00:17)
[2024-09-09 03:30] VITALS: O2SAT 95
[2024-09-09] MEDS: ONDANSETRON 4MG TAB PO PRN (05:27)
[2024-09-09] MEDS ORDERED: FUROSEMIDE 40MG/4ML VIAL IV SCH (09:00)
[2024-09-10] MEDS: MORPHINE 10MG/0.5ML ORAL CONCENTRATE SOLUTION U/D SL PRN ×2 (09:03→15:37)
[2024-09-11] MEDS: MORPHINE 10MG/0.5ML ORAL CONCENTRATE SOLUTION U/D SL PRN ×2 (06:47→08:45)
== END 2024-09-11 14:18 | disposition expired | DRG 189 ==
LOC: M ED 15:11 → M ED INP 22:49 → M MSPAV 09-08 16:00
PROVIDERS: ADMIT Student in an Organized Health Care Education/Training Program; ATTEND Internal Medicine
DX: J96.22 Acute and chronic respiratory failure with hypercapnia (principal); J18.9 Pneumonia, unspecified organism; I50.33 Acute on chronic diastolic (congestive) heart failure; G93.41 Metabolic encephalopathy; C34.12 Malignant neoplasm of upper lobe, left bronchus or lung; J44.1 Chronic obstructive pulmonary disease with (acute) exacerbation; J44.0 Chronic obstructive pulmonary disease with (acute) lower respiratory infection; I31.39 Other pericardial effusion (noninflammatory); E87.29 Other acidosis; E11.9 Type 2 diabetes mellitus without complications; G40.909 Epilepsy, unspecified, not intractable, without status epilepticus; K21.9 Gastro-esophageal reflux disease without esophagitis; E78.00 Pure hypercholesterolemia, unspecified; E87.5 Hyperkalemia; E78.5 Hyperlipidemia, unspecified; I11.0 Hypertensive heart disease with heart failure; J96.21 Acute and chronic respiratory failure with hypoxia; Z66 Do not resuscitate; Z51.5 Encounter for palliative care; E55.9 Vitamin D deficiency, unspecified; D50.9 Iron deficiency anemia, unspecified; F32.A Depression, unspecified; R57.1 Hypovolemic shock; Z99.81 Dependence on supplemental oxygen; Z86.711 Personal history of pulmonary embolism; Z86.718 Personal history of other venous thrombosis and embolism; Z79.01 Long term (current) use of anticoagulants; Z79.899 Other long term (current) drug therapy; Z88.1 Allergy status to other antibiotic agents; Z88.8 Allergy status to other drugs, medicaments and biological substances; Z91.040 Latex allergy status